=== PATIENT | male | born 1935 | race Caucasian/White ===

== ENCOUNTER → 2016-11-17 | Outpatient (CLI) | payer MEDICARE, BC ==
--- NOTE | 2016-11-17 11:11 | XR ---
EXAMINATION TYPE: XR chest 2V DATE OF EXAM: 11/17/2016 COMPARISON: NONE HISTORY: Dysphagia, R 13.1 TECHNIQUE: Frontal and lateral views of the chest are obtained on 3 images. FINDINGS: There is no focal air space opacity, pleural effusion, or pneumothorax seen. The cardiac silhouette size is within normal limits. Prominent lung volume may be indicative of COPD. There is re tained contrast within the soft tissues of the neck and stomach compatible with patient's barium stud y on this date. Carotid artery calcifications are significant. Bone mineralization is reduced. There is a mild spinal curvature. The osseous structures are intact. IMPRESSION: No acute cardiopulmonary process.
--- NOTE | 2016-11-17 11:21 | FL ---
Barium swallow HISTORY: Dysphagia, food gets stuck in throat 1 minute 45 seconds fluoroscopy time, 119 images document the procedure Patient was given high density barium to drink. Images are obtained. Bilateral carotid artery calcifications are present. Significant facet arthropathy, degenerative disc changes noted incidentally in the neck, anterolisthesis grade 1 C3-4, C4-5, there is multilevel spon dylosis and loss of disc height.. The swallowing mechanism is normal. No obstruction to flow noted within the neck. No evident mass wit hin the neck. No aspiration. Tertiary esophageal contractions are noted. Some transient stenosis noted at the distal esophagus, sm all sliding hiatal hernia is suspected. No evident mass. Gastroesophageal reflux was not noted during the exam. IMPRESSION: Transient distal esophageal narrowing, small sliding hiatal hernia suspected. Tertiary es ophageal contractions. Carotid artery disease. Degenerative disc disease.
== END | disposition home or self-care (01) ==
LOC: RADFLMAIN 10:07
PROVIDERS: ATTEND Internal Medicine
DX: K22.4 Dyskinesia of esophagus (principal); R13.10 Dysphagia, unspecified
CPT/HCPCS: 71020; 74220

== ENCOUNTER 2018-06-08 07:02 | Emergency (ER) | payer MEDICARE ==
[2018-06-08] MEDS ORDERED: SODIUM CHLORIDE 0.9% 500 ML 500 ML IV STA (07:16)
--- NOTE | 2018-06-08 07:32 | ED ---
Abdominal Pain HPI - General Chief Complaint: Abdominal Pain Stated Complaint: hernia pain Time Seen by Provider: 06/08/18 07:11 Source: patient, RN notes reviewed Mode of arrival: ambulatory Limitations: no limitations - History of Present Illness Initial Comments: This an 83-year-old male presents emergency Department with chief complaint of left-sided abdominal pain, left inguinal hernia. Patient states she's had a known hernia but states over the last few days she's had increase in pain and increase in swelling. Patient states that he's had no dysuria no hematuria no diarrhea no constipation. Patient states that his PCP had told him that if he had some pain or increase in size that he needed see a surgeon. Patient denies any increase heavy lifting, twisting or bending. He states that he can push the hernia back in. He states the pain radiated up into his abdomen the left side. He does admit that he has aortic Phillip bypass. Patient denies any lower extremity paresthesias, discoloration. - Related Data Home Medications Medication Instructions Recorded Confirmed Allopurinol [Zyloprim] 100 mg PO DAILY 05/05/15 06/08/18 Atenolol [Tenormin] 50 mg PO DAILY 05/05/15 06/08/18 Furosemide [Lasix] 40 mg PO DAILY 05/05/15 06/08/18 Lisinopril 40 mg PO DAILY 05/05/15 06/08/18 Atorvastatin Calcium [Lipitor] 80 mg PO DAILY 06/08/18 06/08/18 Allergies Allergy/AdvReac Type Severity Reaction Status Date / Time No Known Allergies Allergy Verified 06/08/18 07:27 Review of Systems ROS Statement: Those systems with pertinent positive or pertinent negative responses have been documented in the HPI. ROS Other: All systems not noted in ROS Statement are negative. Past Medical History Past Medical History: Hyperlipidemia, Hypertension, Vascular Disorder Additional Past Medical History / Comment(s): GOUT., STATES PAST HX OF OCCLUDED CIRCULATION TO LEGS. History of Any Multi-Drug Resistant Organisms: None Reported Additional Past Surgical History / Comment(s): AORTO-BIFEMORAL GRAFT Past Anesthesia/Blood Transfusion Reactions: No Reported Reaction Past Psychological History: No Psychological Hx Reported Smoking Status: Current every day smoker Past Alcohol Use History: Daily Past Drug Use History: None Reported - Past Family History Brother(s) Family Medical History: Cancer Sister(s) Family Medical History: Cancer General Exam Limitations: no limitations General appearance: alert, in no apparent distress Respiratory exam: Present: normal lung sounds bilaterally. Absent: respiratory distress, wheezes, rales, rhonchi, stridor Cardiovascular Exam: Present: regular rate, normal rhythm, normal heart sounds. Absent: systolic murmur, diastolic murmur, rubs, gallop, clicks GI/Abdominal exam: Present: soft, normal bowel sounds, hernia (Left inguinal hernia which is reducible). Absent: distended, tenderness, guarding, rebound, rigid Extremities exam: Present: other (Lower extremity pulses equal bilaterally, equal color equal warmth) Back exam: Present: full ROM, tenderness. Absent: CVA tenderness (R), CVA tenderness (L) Skin exam: Present: warm, dry, intact, normal color. Absent: rash Course Vital Signs 06/08/18 07:07 Temperature 97.6 F Pulse Rate 69 Respiratory 20 Rate Blood Pressure 154/65 O2 Sat by Pulse 99 Oximetry Medical Decision Making - Medical Decision Making 83-year-old male presented from for inguinal hernia. Patient has a reducible marginal hernia. Patient did have (CT CT shows evidence of inguinal hernia along with tiny epigastric abdominal wall hernia which is reducible also. Patient has no localized tenderness. Patient will follow-up with on-call surgery and return parameters were discussed. - Lab Data Result diagrams: 06/08/18 07:23 06/08/18 07:23 Lab Results 06/08/18 06/08/18 06/08/18 Range/Units 07:23 07:23 07:40 WBC 7.8 (3.8-10.6) k/uL RBC 4.52 (4.30-5.90) m/uL Hgb 14.2 (13.0-17.5) gm/dL Hct 44.4 (39.0-53.0) % MCV 98.2 (80.0-100.0) fL MCH 31.3 (25.0-35.0) pg MCHC 31.9 (31.0-37.0) g/dL RDW 15.1 (11.5-15.5) % Plt Count 198 (150-450) k/uL Neutrophils % 74 % Lymphocytes % 17 % Monocytes % 5 % Eosinophils % 3 % Basophils % 1 % Neutrophils # 5.8 (1.3-7.7) k/uL Lymphocytes # 1.3 (1.0-4.8) k/uL Monocytes # 0.4 (0-1.0) k/uL Eosinophils # 0.2 (0-0.7) k/uL Basophils # 0.0 (0-0.2) k/uL Sodium 138 (137-145) mmol/L Potassium 4.5 (3.5-5.1) mmol/L Chloride 106 (98-107) mmol/L Carbon Dioxide 23 (22-30) mmol/L Anion Gap 9 mmol/L BUN 25 H (9-20) mg/dL Creatinine 1.14 (0.66-1.25) mg/dL Est GFR (CKD-EPI)AfAm 70 (>60 ml/min/1.73 sqM) Est GFR (CKD-EPI)NonAf 60 (>60 ml/min/1.73 sqM) Glucose 83 (74-99) mg/dL Calcium 9.2 (8.4-10.2) mg/dL Urine Color Yellow Urine Appearance Clear (Clear) Urine pH 5.0 (5.0-8.0) Ur Specific [place] 1.010 (1.001-1.035) Urine Protein Negative (Negative) Urine Glucose (UA) Negative (Negative) Urine Ketones 1+ H (Negative) Urine Blood Negative (Negative) Urine Nitrite Negative (Negative) Urine Bilirubin Negative (Negative) Urine Urobilinogen <2.0 (<2.0) mg/dL Ur Leukocyte Esterase Negative (Negative) Disposition Clinical Impression: Inguinal hernia, Abdominal wall hernia Disposition: HOME SELF-CARE Condition: Stable Instructions (If sedation given, give patient instructions): Inguinal Hernia (ED) Additional Instructions: Please return to the Emergency Department if symptoms worsen or any other concerns. Is patient prescribed a controlled substance at d/c from ED?: No Referrals: Long White MD [Primary Care Provider] - 1-2 days Yang Fried MD [STAFF PHYSICIAN] - 1-2 days Time of Disposition: 09:03
[2018-06-08] MEDS ORDERED: ACETAMINOPHEN TAB 325 MG TAB PO STA (07:43)
[2018-06-08 07:45] LABS: Basophils % (A) 1 %; Eosinophils # (A) 0.2 k/uL (0-0.7); Eosinophils % (A) 3 %; HCT 44.4 % (39.0-53.0); HGB 14.2 gm/dL (13.0-17.5); Lymphocytes # (A) 1.3 k/uL (1.0-4.8); Lymphocytes % (A) 17 %; MCH 31.3 pg (25.0-35.0); MCHC 31.9 g/dL (31.0-37.0); MCV 98.2 fL (80.0-100.0); Monocytes # (A) 0.4 k/uL (0-1.0); Monocytes % (A) 5 %; Neutrophils # (A) 5.8 k/uL (1.3-7.7); Neutrophils % (A) 74 %; Platelet Count 198 k/uL (150-450); RBC 4.52 m/uL (4.30-5.90); RDW 15.1 % (11.5-15.5); WBC 7.8 k/uL (3.8-10.6)
[2018-06-08 07:50] LABS: Appearance,Urine Clear (Clear); Bilirubin,Urine Negative (Negative); Blood,Urine Negative (Negative); Color,Urine Yellow; Glucose,Urine (UA) Negative (Negative); Ketones,Urine 1+ (Negative); Leukocyte Esterase,Urine Negative (Negative); Nitrite,Urine Negative (Negative); Protein,Urine Negative (Negative); Urobilinogen,Urine <2.0 mg/dL (<2.0)
[2018-06-08 08:00] LABS: Calcium 9.2 mg/dL (8.4-10.2); Potassium 4.5 mmol/L (3.5-5.1)
--- NOTE | 2018-06-08 08:52 | CT ---
EXAMINATION TYPE: CT abdomen pelvis w con DATE OF EXAM: 06/08/2018 COMPARISON: NONE HISTORY: 83 year-old male abdominal pain, Hernia pain TECHNIQUE: Contiguous axial scanning of the abdomen and pelvis following administration of 100 ml Iso robby 300 IV contrast. Delayed images through the kidneys and coronal/sagittal reconstructions perform ed. CT DLP: 534.9 mGycm Automated exposure control for dose reduction was used. FINDINGS: Heart normal size without pericardial effusion. Patchy dependent bibasilar densities are present, lef t greater than right. Coronary vessel calcifications. Aortic valvular calcifications. A couple faceted stones within the gallbladder measuring up to 1.5 cm. No abnormal gallbladder disten tion. No focal liver lesion or biliary ductal dilatation. Small diverticulum of the second portion of the d uodenum projecting into the pancreatic head region. There is a 1.8 cm wide omental fat-containing midline epigastric abdominal wall hernia with a very ti ght abdominal wall defect measuring 3 to 4 mm. And omental fat vessel extends into the hernia as well . There may be some mild fat stranding here. Adrenal glands, lobulated bilateral kidneys, spleen, and atrophic pancreas show no gross abnormal mob ility. Some calcifications along the inferior aspect of the pancreatic head suspect represent vascular calci fications. Motion artifacts are present limiting evaluation. No dilated small bowel, free fluid, or free air. Normal appendix. There is some mild edematous stranding throughout the intra-abdominal fat that could reflect some deg ree of fluid overload state. There is a direct left inguinal hernia containing a short loop of nonobstructed proximal sigmoid. The hernia sac measures 5.8 x 4.2 cm. Clustered small bowel loops being low in the pelvis overlying the bladder. No dilated small bowel, fr ee fluid, or free air. No mesenteric or retroperitoneal lymphadenopathy seen. Bladder shows prominent urine distention. Prostate gland measures 4.6 cm wide. No abnormal fluid col lection in the pelvis or pelvic lymphadenopathy. Post surgical changes of aortobifemoral bypass. Bones: Degenerative changes of the hips and right SI joint. Severe degenerative changes L5-S1 disc sp charles and additional levels of degenerative change throughout the remainder of the lumbar spine. IMPRESSION: 1. A TINY OMENTAL FAT AND VESSEL CONTAINING MIDLINE EPIGASTRIC ABDOMINAL WALL HERNIA MEASURES 1.8 CM WIDE WITH A TIGHT, 3 TO 4 MM HERNIA NECK. THERE IS SUGGESTION OF SOME MILD INFLAMMATION HERE. CORRELA TE FOR ANY LOCALIZING PAIN. 2. MODERATE-SIZED DIRECT LEFT INGUINAL HERNIA CONTAINING A SHORT LOOP OF NONOBSTRUCTED PROXIMAL SIGMO ID COLON. 3. CHOLELITHIASIS. 4. MILD EDEMATOUS STRANDING THROUGHOUT THE INTRA-ABDOMINAL FAT. QUERY MILD FLUID OVERLOAD STATE. 5. SOME PATCHY BIBASILAR DENSITIES REPRESENTING ATELECTASIS OR EARLY INFILTRATES. CORRELATE FOR ANY R ESPIRATORY SYMPTOMS.
[2018-06-08] MEDS ORDERED: ACET/COD 300 MG/30 MG STARTER PACK 6 TAB BTL PO STA (09:03)
[2018-06-08 09:08] VITALS: BP 152/63; PULSE 70; RESP 18; TEMP 96.9
== END 2018-06-08 09:07 | disposition home or self-care (01) ==
LOC: EC 07:02
DX: K40.90 Unilateral inguinal hernia, without obstruction or gangrene, not specified as recurrent (principal); K43.9 Ventral hernia without obstruction or gangrene; E78.5 Hyperlipidemia, unspecified; I10 Essential (primary) hypertension; M10.9 Gout, unspecified; F17.200 Nicotine dependence, unspecified, uncomplicated; Z95.828 Presence of other vascular implants and grafts; Z79.899 Other long term (current) drug therapy
CPT/HCPCS: 36415; 74177; 80048; 81003; 85025; 99284

== ENCOUNTER 2018-06-14 09:38 | Day surgery (SDC) | payer MEDICARE ==
[2018-06-09 11:21] VITALS: BMI 20.5
[~2018-06-14 09:38] MED LIST: DEXAMETHASONE SOD PHOSPHATE 10 MG/ML 1 ML VIAL IV ONE; HEPARIN SODIUM,PORCINE 5,000 UNIT/ML 1 ML VIAL SQ ONE; HYDROmorphone 0.5 MG/0.5 ML SYRINGE IVP PRN; MIDAZOLAM 2 MG/2 ML VIAL IV PRN; ONDANSETRON 4 MG/2 ML VIAL IVP ONE; ONDANSETRON 4 MG/2 ML VIAL IVP PRN; SCOPOLAMINE 1.5MG/72HR PATCH TRANSDERM ONE; ceFAZolin IN SWFI 2 GM/20 ML SYRINGE IVP ONE
[2018-06-14] MEDS: LACTATED RINGERS 1,000 ML IV SCH ×2 (12:21→12:22)
[2018-06-14] MEDS ORDERED: LIDOCAINE 1% 20 ML VIAL (10MG/ML) FOR IV START INTRADERMA ONE (12:21)
--- NOTE | 2018-06-14 12:55 | P.GSHP ---
History of Present Illness H&P Date: 06/14/18 Chief Complaint: Left inguinal hernia This 83-year-old male who presents today for laparoscopic robotic system repair of left inguinal hernia. Patient's had developed a tender mass of left groin. 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 LEFT LEG GRAFT History of Any Multi-Drug Resistant Organisms: None Reported Additional Past Surgical History / Comment(s): AORTO-BIFEMORAL GRAFT LEFT SIDE Past Anesthesia/Blood Transfusion Reactions: No Reported Reaction Smoking Status: Current every day smoker - Past Family History Brother(s) Family Medical History: Cancer Sister(s) Family Medical History: Cancer Medications and Allergies Home Medications Medication Instructions Recorded Confirmed Type Allopurinol [Zyloprim] 100 mg PO DAILY 05/05/15 06/14/18 History Atenolol [Tenormin] 50 mg PO DAILY 05/05/15 06/14/18 History Furosemide [Lasix] 40 mg PO DAILY 05/05/15 06/14/18 History Lisinopril 40 mg PO DAILY 05/05/15 06/14/18 History Atorvastatin Calcium [Lipitor] 80 mg PO DAILY 06/08/18 06/14/18 History Allergies Allergy/AdvReac Type Severity Reaction Status Date / Time No Known Allergies Allergy Verified 06/14/18 11:38 Surgical - Exam Vital Signs Temp Pulse Resp BP Pulse Ox 97.8 F 74 18 177/79 96 06/14/18 12:20 06/14/18 12:20 06/14/18 12:20 06/14/18 12:20 06/14/18 12:20 - General well developed, well nourished, no distress - Eyes PERRL - ENT normal pinna - Neck no masses - Respiratory normal expansion - Cardiovascular Rhythm: regular - Abdomen Abdomen: soft, non tender Hernia: inguinal (Reducible left inguinal hernia) Assessment and Plan Assessment: Left inguinal hernia. We'll perform laparoscopic robotic-assisted repair.
[2018-06-14] MEDS ORDERED: PROPOFOL 10 MG/ML 20 ML VIAL IV ONE (13:15)
[2018-06-14] MEDS ORDERED: VECURONIUM 10 MG VIAL IV ONE (13:15)
[2018-06-14] MEDS ORDERED: LIDOCAINE 1% INJ 10MG/ML (20 ML MDV) ONE (13:15)
[2018-06-14] MEDS ORDERED: ROPIVACAINE 5 MG/ML 30 ML VIAL ONE (13:15)
[2018-06-14] MEDS ORDERED: LIDOCAINE 2%-EPI 1:100,000 20 ML VIAL ONE (13:15)
[2018-06-14] MEDS ORDERED: NEOSTIGMINE 1 MG/ML 10 ML VIAL ONE (13:15)
[2018-06-14] MEDS ORDERED: GLYCOPYRROLATE 0.2 MG/ML 2 ML VIAL ONE (13:15)
[2018-06-14] MEDS ORDERED: fentaNYL (PF) 50 MCG/ML 2 ML AMP ONE (13:15)
[2018-06-14] MEDS ORDERED: SUCCINYLCHOLINE CHLORIDE 100 MG/5 ML SYR IV ONE (13:15)
[2018-06-14] MEDS ORDERED: BUPIVACAIN-EPI 0.5%-1:200,000 30 ML VIAL SQ ONE (13:58)
[2018-06-14 14:25] VITALS: TEMP 97.2
[2018-06-14] MEDS ORDERED: HYDROcodone/APAP 7.5-325MG 1 EACH TAB PO ONE (15:22)
--- NOTE | 2018-06-14 15:35 | P.OP ---
Date of Procedure: 06/14/18 Preoperative Diagnosis: Left inguinal hernia Postoperative Diagnosis: Left inguinal hernia Procedure(s) Performed: Laparoscopic robotic-assisted repair of left inguinal hernia Anesthesia: SALEEM Surgeon: Yang Fried Estimated Blood Loss (ml): 5 Pathology: none sent Condition: stable Disposition: PACU Description of Procedure: The patient's placed on the operating table in the supine position. The patient received general anesthesia. The patient's abdomen was prepped and draped in usual sterile fashion. The skin was anesthetized 1% local Xylocaine at the incision sites. Using an 11 blade a skin incision was made at the umbilicus. The fascia was grasped with a Daxa and then the peritoneal cavity was entered with the Veress needle. Position of the Veress needle was confirmed with a positive drop test. After adequate insufflation a 5 mm trocar was placed into the peritoneal cavity. The Laparoscope was placed the peritoneal cavity. And a robotic 8 mm trocar was placed in the right lateral position and then another 8 mm robotic trochars placed in the left lateral position. The original 5 mm trocar was exchanged for a 12 mm trocar. The patient was placed in reverse Trendelenburg and then the patient was docked to the robot. Next the peritoneum over top of the left inguinal hernia was incised and then using blunt and sharp dissection and electrocautery the hernia sac was dissected free from the floor of the inguinal canal. The hernia sac was completely reduced into the peritoneal cavity. And then using the Pro quality assurance test program manager mesh the hernia was repaired. The peritoneum was then sutured with 20V lock suture. The patient was then undocked the robot. The needle was withdrawn from the peritoneal cavity. The umbilical trocar site was closed with 0 Ethibond suture. The skin was closed interrupted 3-0 Monocryl suture. Dermabond dressing was applied. Patient was sent to recovery in stable condition.
[2018-06-14 15:52] VITALS: RESP 16
[2018-06-14 16:38] VITALS: BP 153/74; PULSE 63
--- NOTE | 2018-06-15 12:44 | P.ONQ ---
Anesthesiology Proc Note - PNB - Peripheral Nerve Block Performed Left Transversus Abdominis Single Time Out Performed: Yes Procedure Start Time: 12:30 Procedure Stop Time: 12:33 Indication: Acute Post-Operative Pain, Requested by physician Sedation Type: Sedate with meaningful contact maintained Preparation: Sterile Prep Position: Supine Needle Size: 50mm (2") Needle Gauge: 21 (ropi .5% 20cc plus xylo 2% 10cc) Technique: Ultrasound Blood Aspirated: No Pain Paresthesia on Injection Noted: No Resistance on Injection: Normal Events: Uneventful and Well Tolerated
== END 2018-06-14 18:31 | disposition home or self-care (01) ==
LOC: OR 09:38
PROVIDERS: ATTEND Surgery
DX: K40.90 Unilateral inguinal hernia, without obstruction or gangrene, not specified as recurrent (principal); E78.5 Hyperlipidemia, unspecified; I10 Essential (primary) hypertension; M10.9 Gout, unspecified; F17.200 Nicotine dependence, unspecified, uncomplicated; Z86.79 Personal history of other diseases of the circulatory system; Z80.9 Family history of malignant neoplasm, unspecified; Z95.820 Peripheral vascular angioplasty status with implants and grafts; Z79.899 Other long term (current) drug therapy
CPT/HCPCS: 49650; 64486; C1781; J2250; J1644; J1100; J2710; J2405; J2001; J3010; J2795; J0330; J2704; J0690

== ENCOUNTER → 2019-06-05 | Outpatient (CLI) | payer MEDICARE ==
--- NOTE | 2019-06-05 13:16 | CT ---
EXAMINATION TYPE: CT abdomen pelvis w con DATE OF EXAM: 06/05/2019 COMPARISON: 06/08/2018 2 HISTORY: Change in bowel habits, diarrhea CT DLP: 351.1 mGycm CONTRAST: CT scan of the abdomen and pelvis is performed with Oral Contrast and with IV Contrast, patient injec lucia with 80 mL of Isovue 300. FINDINGS: LUNG BASES-: No visible nodule. No infiltrate. LIVER/GB: Calcified gallstones noted. No space occupying hepatic lesion. Biliary tree is of normal caliber. PANCREAS: No inflammation. No distinct mass. SPLEEN: No splenic enlargement. No lesion seen. ADRENALS: No nodule. No thickening. KIDNEYS/BLADDER: No hydronephrosis. No nephrolithiasis. No distinct renal mass. Urinary bladder g rossly unremarkable. BOWEL: Normal appendix. Normal bowel caliber. No inflammation. GENITAL ORGANS: No gross abnormality. LYMPH NODES: No greater than 1cm abdominal or pelvic lymph nodes are appreciated. AORTA: Dense atheromatous change at the origin of the SMA. Aortic bypass graft distally. OSSEOUS STRUCTURES: No significant abnormality is seen. OTHER: Previously noted interval hernia repairs. IMPRESSION: 1. Dense atheromatous change at the level of the SMA without evidence for wall thickening of the edwin l. 2. Cholelithiasis. 3. Surgical intervention of previously noted hernias.
== END | disposition home or self-care (01) ==
LOC: RADCTMAIN 10:52
PROVIDERS: ATTEND Family Medicine
DX: K55.1 Chronic vascular disorders of intestine (principal); K80.20 Calculus of gallbladder without cholecystitis without obstruction; K46.9 Unspecified abdominal hernia without obstruction or gangrene; R19.7 Diarrhea, unspecified; R19.4 Change in bowel habit
CPT/HCPCS: 82565; 84520; 74177; 36415; Q9967 ×2

== ENCOUNTER → 2020-04-11 | Outpatient (CLI) | payer MEDICARE ==
[2020-04-11 23:50] LABS: Gliadin AB IgA, Deaminated NEGATIVE (NEGATIVE); Gliadin AB IgA, Unit 0.7 U/mL
[2020-04-11 23:51] LABS: Gliadin AB IgG, Deaminated NEGATIVE (NEGATIVE)
[2020-04-12 00:58] LABS: Carcinoembryonic Antigen 1.4 ng/mL (0.0-4.9)
[2020-04-12 01:03] LABS: African American GFR (CKD) 80.3 (60.0-200.0); Non-African American GFR(CKD) 69.3 (60.0-200.0)
== END | disposition home or self-care (01) ==
LOC: LABWHC1 15:17
PROVIDERS: ATTEND Nurse Practitioner
DX: R63.4 Abnormal weight loss (principal)
CPT/HCPCS: 36415; 82378; 82565; 83516; 84520

== ENCOUNTER → 2020-04-17 | Outpatient (CLI) | payer MEDICARE ==
--- NOTE | 2020-04-18 00:24 | CT ---
EXAMINATION TYPE: CT ChestAbdPelvis w con DATE OF EXAM: 04/17/2020 COMPARISON: CT abdomen pelvis 06/05/2019 HISTORY: abnormal weight loss CT DLP: 900 mGycm Automated exposure control for dose reduction was used. CONTRAST: Performed with IV Contrast, patient injected with 100 mL of Isovue 300. Images obtained from the thoracic inlet to the floor the pelvis with IV contrast. There is minimal pulmonary emphysema at the lung apices. The lungs are clear of consolidation. There is no evidence of a pulmonary mass. There is minimal subsegmental atelectasis at the posterior lung b ases. There is no pleural effusion. There is no pericardial effusion. There is no mediastinal adenopathy. Thoracic aorta shows mild atheromatous changes. There is no aneur ysm or dissection. There are no hilar masses. There are no filling defects in the pulmonary arteries. There are large calcified gallstones. Liver shows no focal defect. There is mild ectasia of the left and right hepatic duct. The common bile duct is not significantly dilated. Stomach is intact. There i s no pancreatic mass. Spleen is intact. There is no adrenal mass. Kidneys show satisfactory contrast opacification. There is no hydronephrosi s. Ureters are not dilated. There is no retroperitoneal adenopathy. Abdominal aorta is atheromatous. There is aorto iliac bypass graft. There is moderate calcification in the iliac arteries. There is si gnificant narrowing of the proximal celiac artery and probably more than 75% stenosis. There is occlu vitaly of the distal abdominal aorta. The bladder distends smoothly. There is no inguinal hernia. There is no free fluid in the pelvis. There is no sign of pelvic mass. There is no inguinal hernia. There is normal contrast opacification of the bowel. Appendix is posteri or and appears normal. There is no evidence of a bowel obstruction. There is no mesenteric edema. The re is however some mild wall thickening of the transverse colon. There is no ascites or free air. The re is some mild retroperitoneal perinephric fat stranding which is increased compared to old exam. The thoracic and lumbar vertebra appear intact. Spleen is intact. Bony pelvis is intact. The hip join ts are intact. I see no bony destructive process. There are some spondylotic changes in the lumbar sp ine at L5-S1 and L2-3. There is no compression fracture. IMPRESSION: Mild wall thickening of the wall of the transverse colon and proximal descending colon that raises th e possibility of some mild ischemic colitis. This is a change compared to old exam. There is retroper itoneal fat stranding around the kidneys that is increased compared to old exam. There is mild ectasia of the left and right hepatic duct but no dilation of the intrahepatic bile haydee ts. No obstructing lesion seen. This probably relates to some chronic gallbladder dysfunction.. Kalli lithiasis. No evidence of pulmonary embolism. Atherosclerotic vascular disease. There is normal appearing patenc y of the aortofemoral femoral bypass graft. 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 Moderately severe plaque formation at the origin of the superior mesenteric artery.
== END | disposition home or self-care (01) ==
LOC: RADCTMAIN 15:49
PROVIDERS: ATTEND Internal Medicine Gastroenterology
DX: K63.89 Other specified diseases of intestine (principal); R93.429 Abnormal radiologic findings on diagnostic imaging of unspecified kidney; K76.89 Other specified diseases of liver; K80.20 Calculus of gallbladder without cholecystitis without obstruction; I25.10 Atherosclerotic heart disease of native coronary artery without angina pectoris; I77.4 Celiac artery compression syndrome; K55.1 Chronic vascular disorders of intestine; Z95.828 Presence of other vascular implants and grafts
CPT/HCPCS: 82565; 84520; 71260; 74177; Q9967

== ENCOUNTER 2020-04-22 08:49 | Day surgery (SDC) | payer MEDICARE ==
[2020-04-18 11:44] VITALS: BMI 19.1
[~2020-04-22 08:49] MED LIST changes: -DEXAMETHASONE SOD PHOSPHATE 10 MG/ML 1 ML VIAL IV ONE; -HEPARIN SODIUM,PORCINE 5,000 UNIT/ML 1 ML VIAL SQ ONE; -HYDROmorphone 0.5 MG/0.5 ML SYRINGE IVP PRN; +LACTATED RINGERS 1,000 ML IV SCH; -MIDAZOLAM 2 MG/2 ML VIAL IV PRN; -ONDANSETRON 4 MG/2 ML VIAL IVP ONE; -ONDANSETRON 4 MG/2 ML VIAL IVP PRN; -SCOPOLAMINE 1.5MG/72HR PATCH TRANSDERM ONE; -ceFAZolin IN SWFI 2 GM/20 ML SYRINGE IVP ONE
[2020-04-22] MEDS ORDERED: LIDOCAINE 1% (10MG/ML) FOR IV START INTRADERMA ONE (09:24)
[2020-04-22 09:30] VITALS: TEMP 97
[2020-04-22] MEDS ORDERED: LIDOCAINE 1% INJ 10MG/ML (20 ML MDV) ONE (10:10)
[2020-04-22] MEDS ORDERED: PROPOFOL 10 MG/ML 20 ML VIAL IV ONE (10:10)
[2020-04-22 11:09] VITALS: PULSE 54
--- NOTE | 2020-04-22 11:12 | P.PCN ---
Date of Procedure: 04/22/20 Description of Procedure: Brief history: Patient is a pleasant 85-year-old male presenting for outpatient EGD and colonoscopy for evaluation of diarrhea, noninfective gastroenteritis colitis and dysphagia. Patient has been having symptoms of diarrhea and nonbloody stools occurring over the past year with over 10 bowel movements daily including nocturnal bowel movements. He also reports intermittent food dysphagia with the sensation of food getting stuck in his esophagus. Procedure performed: Esophagogastroduodenoscopy with biopsy Colonoscopy with polypectomy and biopsy Estimated blood loss: Minimal. Preoperative diagnosis: Esophageal dysphagia, noninfective gastroenteritis and colitis, unintentional weight loss, diarrhea, no prior colonoscopy Anesthesia: [facility] [place] Procedure: After informed consent was obtained from the patient was brought into the endoscopy unit and IV sedation was administered by anesthesia under continuous monitoring. Initially upper endoscopy was done. The Olympus GF 190 video endoscope was inserted into the mouth and esophagus intubated without any difficulty and was gradually advanced into the stomach and duodenum and carefully examined. The bulb and second part of the duodenum appeared normal, With biopsies taken to rule out celiac sprue. The scope was then withdrawn into the stomach adequately insufflated with air and upon careful examination the antrum and body, cardia and fundus appeared normal, Except for some mild erythema in the antrum and body suggestive of mild gastritis biopsies taken. The scope was then withdrawn into the esophagus. The GE junction was located at 35 cm to the incisors and biopsied. It appeared regular with no erythema erosions or ulcerations. Rest of the esophagus appeared normal. Patient tolerated the procedure well. At this time the patient continued to remain sedation. Initial digital rectal examination was normal. Olympus CF 190 video colonoscope was then inserted into the rectum and gradually advanced to the cecum without any difficulty. Careful examination was performed as the scope was gradually being withdrawn. The prep was excellent. The cecum, ascending colon, transverse colon, descending colon, sigmoid colon and rectum appeared normal. Retroflexion was performed in the rectum and no lesions were noted. Multiple small and large mouth diverticula in the sigmoid colon. Sessile 12 mm hepatic flexure polyp removed with hot snare polypectomy. Random biopsies taken of the terminal ileum, right and left colon in the setting of altered bowel function diarrhea. Patient tolerated the procedure well. Impression: 1. Mild gastritis. Biopsies taken of the antrum and body, GE junction and duodenum. 2. Large sessile hepatic flexure polyp removed with snare polypectomy. Random biopsies taken of the terminal ileum, right colon and left colon in the setting of diarrhea. Mild sigmoid diverticulosis. Recommendations: Findings of this examination were discussed with the patient as well as This family. Okay to resume diet. Okay to resume medications. Await pathology from biopsies and polypectomy. Follow-up in the GI clinic in the next was 2 weeks for results of biopsies and further management.
[2020-04-22 11:30] VITALS: BP 194/53; RESP 18
== END 2020-04-22 11:54 | disposition home or self-care (01) ==
LOC: ORWHC2ENDO 08:49
PROVIDERS: ATTEND Internal Medicine
DX: K50.00 Crohn's disease of small intestine without complications (principal); K52.9 Noninfective gastroenteritis and colitis, unspecified; D12.3 Benign neoplasm of transverse colon; K29.50 Unspecified chronic gastritis without bleeding; B96.81 Helicobacter pylori [H. pylori] as the cause of diseases classified elsewhere; D72.820 Lymphocytosis (symptomatic); K21.9 Gastro-esophageal reflux disease without esophagitis; I10 Essential (primary) hypertension; J44.9 Chronic obstructive pulmonary disease, unspecified; F17.210 Nicotine dependence, cigarettes, uncomplicated; M19.90 Unspecified osteoarthritis, unspecified site; K57.30 Diverticulosis of large intestine without perforation or abscess without bleeding; K29.80 Duodenitis without bleeding; Z79.899 Other long term (current) drug therapy; Z98.49 Cataract extraction status, unspecified eye; Z98.890 Other specified postprocedural states
CPT/HCPCS: 88305; 88342; 45380; 45385; 43239; J2001; J2704

== ENCOUNTER → 2020-08-22 | Outpatient (CLI) | payer MEDICARE ==
--- NOTE | 2020-08-22 09:00 | US ---
EXAMINATION TYPE: US liver DATE OF EXAM: 08/22/2020 COMPARISON: CT 04/17/2020 CLINICAL HISTORY: 85-year-old male R94.5 Abnormal results of liver function studies. TECHNIQUE: Multiple sonographic images of the right upper quadrant are obtained. FINDINGS: EXAM MEASUREMENTS: Liver Length: 8.0 cm Gallbladder Wall: 0.3 cm CBD: 1.0 cm Right Kidney: 8.3 x 4.7 x 5.6 cm Pancreas: Obscured by bowel gas Liver: wnl Gallbladder: At least 2 calcified stones with shadowing. No abnormal distention. Wall thickness is b orderline at 3 mm. No surrounding fluid seen. Evidence for sonographic Ugalde's sign: No CBD: measures 1.0 cm Right Kidney: No hydronephrosis or masses seen IMPRESSION: 1. Bile duct dilated at 1 cm. This is more than expected for patient's age. Choledocholithiasis not e xcluded especially given the appearance on 04/17/2020 CT. Correlate with alkaline phosphatase and bilir ubin levels. ERCP or MRCP if indicated. 2. At least 2 gallstones measuring up to 1.6 cm.
== END | disposition home or self-care (01) ==
LOC: RADUSWWP 07:27
PROVIDERS: ATTEND Family Medicine
DX: K83.8 Other specified diseases of biliary tract (principal); K80.20 Calculus of gallbladder without cholecystitis without obstruction
CPT/HCPCS: 76705

== ENCOUNTER → 2020-08-27 | Outpatient (CLI) | payer MEDICARE ==
[2020-08-27 23:47] LABS: Albumin 4.3 g/dL (3.80-4.90); Albumin/Globulin Ratio 1.95 (1.60-3.17); Bilirubin, Conjugated 0.2 mg/dL (0.20-0.40); Bilirubin,Unconjugated 0.4 mg/dL; Globulin 2.2 g/dL (1.6-3.3); Total Bilirubin 0.6 mg/dL (0.2-1.2); Total Protein 6.5 g/dL (6.2-8.2)
== END | disposition home or self-care (01) ==
LOC: LABWHC1 10:29
PROVIDERS: ATTEND Nurse Practitioner
DX: R74.01 Elevation of levels of liver transaminase levels (principal)
CPT/HCPCS: 36415; 80076

== ENCOUNTER → 2020-09-08 | Outpatient (CLI) | payer MEDICARE ==
--- NOTE | 2020-09-09 00:28 | MR ---
EXAMINATION TYPE: MR MRCP DATE OF EXAM: 09/08/2020 COMPARISON: None HISTORY: Elevated levels of liver transaminase Multiplanar multiecho imaging of the abdomen was performed without contrast. There are MRCP images. The liver shows no focal defect. Gallbladder appears intact. There are multiple irregular filling def ects in the dependent gallbladder related to multiple large gallstones. There is no evidence of pancr eatic mass. Spleen is intact. The stomach is intact. There appears to be low signal filling defect in the common bile duct measuring up to 9 mm. The distal common bile duct shows no definite filling def ect. The kidneys have normal size. There is no sign of adrenal mass. There is mild right-sided hydronephro sis. There is no sign of retroperitoneal adenopathy. There is no sign of ascites. IMPRESSION: Cholelithiasis. There is probably at least 2 common duct stones. These are best seen on the T2 axial images series 701 and image 17 and 14. There are probably additional stones in the more proximal comm on bile duct. On the MRCP series 1005 image 7 there appears to be a conglomeration of stones that selena sures overall 23 x 7 mm.
== END | disposition home or self-care (01) ==
LOC: RADMRIMAIN 06:36
PROVIDERS: ATTEND Nurse Practitioner
DX: K80.20 Calculus of gallbladder without cholecystitis without obstruction (principal)
CPT/HCPCS: 74181

== ENCOUNTER 2020-09-24 19:58 | Inpatient (IN) | payer MEDICARE ==
[2020-09-24] MEDS ORDERED: SODIUM CHLORIDE 0.9% 1,000 ML IV STA (20:11)
--- NOTE | 2020-09-24 20:19 | ED ---
General Adult HPI - General Chief complaint: Abdominal Pain Stated complaint: gallstones Time Seen by Provider: 09/24/20 20:05 Source: patient Mode of arrival: wheelchair Limitations: no limitations - History of Present Illness Initial comments: 85 year-old male patient presents to the emergency department for evaluation of dizziness and weakness. States that he had upper abdominal pain and vomiting throughout the night last night. States that today whenever he stands up he becomes lightheaded and dizzy. State he feels like he is going to fall. States he feels like he was feverish, but did not take his temperature. States he has been having diarrhea. Denies any hematochezia, melena, or hematemesis. Does have known gallstones, does have EGD scheduled with Dr. Causey at the end of September. Patient denies any recent rash, cough, shortness of breath, chest pain, back pain, numbness, tingling, dizziness, weakness, hematuria, dysuria, urinary urgency, urinary frequency, headache, visual changes, or any other complaints. - Related Data Home Medications Medication Instructions Recorded Confirmed Furosemide [Lasix] 40 mg PO DAILY 05/05/15 09/24/20 allopurinoL [Zyloprim] 100 mg PO DAILY 05/05/15 09/24/20 atenoloL [Tenormin] 50 mg PO DAILY 05/05/15 09/24/20 lisinopriL 40 mg PO DAILY 05/05/15 09/24/20 Atorvastatin Calcium [Lipitor] 80 mg PO DAILY 06/08/18 09/24/20 Allergies Allergy/AdvReac Type Severity Reaction Status Date / Time No Known Allergies Allergy Verified 09/24/20 23:11 Review of Systems ROS Statement: Those systems with pertinent positive or pertinent negative responses have been documented in the HPI. ROS Other: All systems not noted in ROS Statement are negative. 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 LEFT LEG GRAFT History of Any Multi-Drug Resistant Organisms: None Reported Past Surgical History: Hernia Repair Additional Past Surgical History / Comment(s): AORTO-BIFEMORAL GRAFT LEFT SIDE Past Anesthesia/Blood Transfusion Reactions: No Reported Reaction Past Psychological History: No Psychological Hx Reported Past Alcohol Use History: Daily - Past Family History Brother(s) Family Medical History: Cancer Sister(s) Family Medical History: Cancer General Exam Limitations: no limitations General appearance: alert, in no apparent distress, other (Physical well- developed, well-nourished elderly male patient in no acute distress. Vital signs upon presentation temperature 98.2F, pulse 86, respirations 18, blood pressure 96/55, pulse ox 98% on room air.) Eye exam: Present: normal appearance, PERRL, EOMI. Absent: scleral icterus, conjunctival injection, periorbital swelling ENT exam: Present: normal exam, normal oropharynx, mucous membranes moist Respiratory exam: Present: normal lung sounds bilaterally. Absent: respiratory distress, wheezes, rales, rhonchi, stridor Cardiovascular Exam: Present: regular rate, normal rhythm, normal heart sounds. Absent: systolic murmur, diastolic murmur, rubs, gallop, clicks GI/Abdominal exam: Present: soft, normal bowel sounds. Absent: distended, tenderness, guarding, rebound, rigid Neurological exam: Present: alert, oriented X3, CN II-XII intact Psychiatric exam: Present: normal affect, normal mood Skin exam: Present: warm, dry, intact, normal color. Absent: rash Course Vital Signs 09/24/20 09/24/20 09/25/20 19:59 20:56 00:08 Temperature 98.0 F Pulse Rate 86 78 Pulse Rate [ 78 Left Sitting Pulse Oximetery ] Pulse Rate [ 88 Left Standing Pulse Oximetery ] Pulse Rate [ 76 Left Supine Pulse Oximetery ] Respiratory 18 20 16 Rate Blood Pressure 96/55 118/58 Blood Pressure 106/48 [Left Arm Supine] Blood Pressure 108/48 [Right Arm Sitting] Blood Pressure 87/42 [Right Arm Standing] O2 Sat by Pulse 98 97 95 Oximetry EKG Findings - EKG Comments: EKG Findings:: EKG obtained at 2041 shows normal sinus rhythm with a ventricular rate is 76, IA interval 152, QRS duration 88, QT 374, QTC 420. No evidence of ST elevation or depression. Medical Decision Making - Medical Decision Making 85-year-old male patient presenting with abdominal pain and vomiting history of gallstones. Physical examination did reveal a soft abdomen, some right upper quadrant tenderness. Labs reviewed and did reveal white blood cell count is 17.9. BUN is 35, creatinine 1.68 which is new for the patient. Lactic acid 3.8. Magnesium 1.5. Bili 2.9, AST 602, a LT 410, alk phos 200. Ultrasound was obtained and did show gallstones, possibly dilated common bile duct. Did discuss findings and results with the patient. He started on antibiotics. He'll be admitted for GI and surgical consult. He is agreeable to this plan. Case discussed with my attending Dr. Block. - Lab Data Result diagrams: 09/24/20 20:21 09/24/20 20:21 Lab Results 09/24/20 09/24/20 09/24/20 Range/Units 20:21 20:21 20:21 WBC 17.9 H (3.8-10.6) k/uL RBC 4.46 (4.30-5.90) m/uL Hgb 13.2 (13.0-17.5) gm/dL Hct 41.0 (39.0-53.0) % MCV 92.0 (80.0-100.0) fL MCH 29.7 (25.0-35.0) pg MCHC 32.3 (31.0-37.0) g/dL RDW 16.8 H (11.5-15.5) % Plt Count 129 L (150-450) k/uL MPV 9.5 Neutrophils % (Manual) 58 % Band Neuts % (Manual) 38 % Lymphocytes % (Manual) 4 % Neutrophils # (Manual) 17.10 H (1.3-7.7) k/uL Lymphocytes # (Manual) 0.72 L (1.0-4.8) k/uL Nucleated RBCs 0 (0-0) /100 WBC Differential Comment Manual Slide Review Performed Toxic Granulation Present Toxic Vacuolation Present Anisocytosis Slight Anisocytosis (manual) Present Ovalocytes Present Sodium 139 (137-145) mmol/L Potassium 4.2 (3.5-5.1) mmol/L Chloride 109 H (98-107) mmol/L Carbon Dioxide 19 L (22-30) mmol/L Anion Gap 11 mmol/L BUN 35 H (9-20) mg/dL Creatinine 1.68 H (0.66-1.25) mg/dL Est GFR (CKD-EPI)AfAm 43 (>60 ml/min/1.73 sqM) Est GFR (CKD-EPI)NonAf 37 (>60 ml/min/1.73 sqM) Glucose 90 (74-99) mg/dL POC Glucose (mg/dL) (75-99) mg/dL POC Glu Digital Associate ID Lactic Ac Sepsis Rflx Plasma Lactic Acid Nima 3.8 H* (0.7-2.0) mmol/L Calcium 9.4 (8.4-10.2) mg/dL Magnesium 1.5 L (1.6-2.3) mg/dL Total Bilirubin 2.9 H (0.2-1.3) mg/dL AST 602 H (17-59) U/L ALT 410 H (4-49) U/L Alkaline Phosphatase 200 H (38-126) U/L Total Protein 5.9 L (6.3-8.2) g/dL Albumin 3.4 L (3.5-5.0) g/dL Lipase 178 (23-300) U/L 09/24/20 09/24/20 09/24/20 Range/Units 20:42 20:58 23:30 WBC (3.8-10.6) k/uL RBC (4.30-5.90) m/uL Hgb (13.0-17.5) gm/dL Hct (39.0-53.0) % MCV (80.0-100.0) fL MCH (25.0-35.0) pg MCHC (31.0-37.0) g/dL RDW (11.5-15.5) % Plt Count (150-450) k/uL MPV Neutrophils % (Manual) % Band Neuts % (Manual) % Lymphocytes % (Manual) % Neutrophils # (Manual) (1.3-7.7) k/uL Lymphocytes # (Manual) (1.0-4.8) k/uL Nucleated RBCs (0-0) /100 WBC Differential Comment Manual Slide Review Toxic Granulation Toxic Vacuolation Anisocytosis Anisocytosis (manual) Ovalocytes Sodium (137-145) mmol/L Potassium (3.5-5.1) mmol/L Chloride (98-107) mmol/L Carbon Dioxide (22-30) mmol/L Anion Gap mmol/L BUN (9-20) mg/dL Creatinine (0.66-1.25) mg/dL Est GFR (CKD-EPI)AfAm (>60 ml/min/1.73 sqM) Est GFR (CKD-EPI)NonAf (>60 ml/min/1.73 sqM) Glucose (74-99) mg/dL POC Glucose (mg/dL) 87 (75-99) mg/dL POC Glu Digital Associate ID David Schreiber Lactic Ac Sepsis Rflx Y Plasma Lactic Acid Nima 1.8 (0.7-2.0) mmol/L Calcium (8.4-10.2) mg/dL Magnesium (1.6-2.3) mg/dL Total Bilirubin (0.2-1.3) mg/dL AST (17-59) U/L ALT (4-49) U/L Alkaline Phosphatase (38-126) U/L Total Protein (6.3-8.2) g/dL Albumin (3.5-5.0) g/dL Lipase (23-300) U/L - Radiology Data Radiology results: report reviewed, image reviewed Ultrasound shows numerous gallstones. CBC appears dilated. No focal liver defect. No ascites. Disposition Clinical Impression: Ascending cholangitis, Sepsis, Hypomagnesemia, Acute kidney injury Disposition: ADMITTED IP TO THIS [facility] Condition: Serious Decision to Admit Reason: Admit from EC Decision Date: 09/24/20 Decision Time: 23:44
[2020-09-24 20:36] LABS: Anisocytosis Slight; HGB 13.2 gm/dL (13.0-17.5); MCH 29.7 pg (25.0-35.0); MCHC 32.3 g/dL (31.0-37.0); Mean Platelet Volume 9.5; Platelet Count 129 k/uL (150-450); RBC 4.46 m/uL (4.30-5.90); RDW 16.8 % (11.5-15.5); WBC 17.9 k/uL (3.8-10.6)
[2020-09-24 20:42] LABS: Albumin 3.4 g/dL (3.5-5.0); Calcium 9.4 mg/dL (8.4-10.2); Magnesium 1.5 mg/dL (1.6-2.3); Potassium 4.2 mmol/L (3.5-5.1); Total Bilirubin 2.9 mg/dL (0.2-1.3); Total Protein 5.9 g/dL (6.3-8.2)
[2020-09-24 20:56] LABS: Band Neutrophils % 38 %; Lymphocytes # (M) 0.72 k/uL (1.0-4.8); Neutrophils % (M) 58 %; Nucleated Red Blood Cells 0 /100 WBC (0-0); Total Cells Counted 200
[2020-09-24 20:57] LABS: Anisocytosis (M) Present; Ovalocytes Present
[2020-09-24 20:58] LABS: Toxic Granulation Present; Toxic Vacuolation Present
[2020-09-24 21:00] LABS: Glucose,Whole Blood 87 mg/dL (75-99)
[2020-09-24] MEDS ORDERED: PIPERACILLIN-TAZOBACTAM 3.375 GM in SODIUM CHLORIDE 0.9% 100 ML IVPB STA (21:25)
[2020-09-24] MEDS: MAGNESIUM SULFATE-D5W PMX 1 GM in DEXTROSE/WATER 1 100ML.BAG IVPB SCH ×2 (22:18→23:48)
[2020-09-24] MEDS: SODIUM CHLORIDE 0.9% 1,000 ML IV SCH (22:21)
--- NOTE | 2020-09-24 22:35 | US ---
EXAMINATION TYPE: US abdomen limited DATE OF EXAM: 09/24/2020 COMPARISON: CT, US CLINICAL HISTORY: Abd pain; Hx gallstones. Abdominal pain, hx gallstones. EXAM MEASUREMENTS: Liver Length: 12.5 cm Gallbladder Wall: 0.27 cm CBD: 0.85 cm Right Kidney: 8.3 x 5.0 x 4.8 cm Limited due to gas. Pancreas: Not seen. Liver: Left lobe not seen. Appears coarse, increased echogenicity. Gallbladder: Positioned anteriorly. Multiple hyperechoic foci with posterior shadowing seen within t he gallbladder. Evidence for sonographic Ugalde's sign: No CBD: Appears dilated. Right Kidney: Appears to have a lobulated contour. IMPRESSION: Numerous gallstones. No dilated ducts. No focal liver defect. No ascites.
[2020-09-24] MEDS ORDERED: ONDANSETRON 4 MG/2 ML VIAL IVP PRN (23:41)
[2020-09-24] MEDS ORDERED: NALOXONE 0.4 MG/ML 1 ML VIAL IV PRN (23:41)
[2020-09-25] MEDS: MAGNESIUM SULFATE-D5W PMX 1 GM in DEXTROSE/WATER 1 100ML.BAG IVPB SCH (00:58)
[2020-09-25 01:28] LABS: Amorphous Sediment,Urine Rare /hpf; Appearance,Urine Cloudy (Clear); Bacteria,Urine Rare /hpf; Bilirubin,Urine Negative (Negative); Blood,Urine Trace (Negative); Color,Urine Yellow; Glucose,Urine (UA) Negative (Negative); Hyaline Casts,Urine 3 /lpf (0-2); Ketones,Urine Negative (Negative); Leukocyte Esterase,Urine Negative (Negative); Nitrite,Urine Negative (Negative); Protein,Urine 1+ (Negative); RBC,Urine 2 /hpf (0-5); Squamous Epithelial Cell,Urine <1 /hpf (0-4); Urobilinogen,Urine <2.0 mg/dL (<2.0); WBC,Urine 61 /hpf (0-5)
[2020-09-25] MEDS: PIPERACILLIN-TAZOBACTAM 3.375 GM in SODIUM CHLORIDE 0.9% 100 ML IVPB SCH ×3 (04:01→20:04)
--- NOTE | 2020-09-25 04:18 | P.HPIM ---
History of Present Illness H&P Date: 09/25/20 Chief Complaint: Abdominal pain 85-year-old male with history of hypertension and peripheral arterial disease He's been recently found to have elevated liver enzymes and has been doing some outpatient workup, he had liver ultrasound and MRCP which suggested choledocholithiasis. Today he comes in due to worsening right upper quadrant abdominal pain of 1 day duration associated with nausea vomiting and diarrhea no GI bleeding reported patient is colicky in nature at times severe 8 out of 10 in severity is also reporting some dark urine. Otherwise patient denies fevers or chills however he does have decreased appetite. Currently is laying comfortable in bed denies any abdominal pain In the ED workup showed obstructive jaundice picture with acute transaminitis suspicious for possible underlying acute cholecystitis with ascending cholangitis Review of Systems Pertinent positives as noted in HPI. All other systems were reviewed and are negative Past Medical History Past Medical History: Hyperlipidemia, Hypertension, Vascular Disorder Additional Past Medical History / Comment(s): GOUT, STATES PAST HX OF OCCLUDED CIRCULATION TO LEGS. LEFT LEG GRAFT History of Any Multi-Drug Resistant Organisms: None Reported Past Surgical History: Hernia Repair Additional Past Surgical History / Comment(s): AORTO-BIFEMORAL GRAFT LEFT SIDE Past Anesthesia/Blood Transfusion Reactions: No Reported Reaction Past Psychological History: No Psychological Hx Reported Past Alcohol Use History: Daily - Past Family History Brother(s) Family Medical History: Cancer Sister(s) Family Medical History: Cancer Medications and Allergies Home Medications Medication Instructions Recorded Confirmed Type Furosemide [Lasix] 40 mg PO DAILY 05/05/15 09/24/20 History allopurinoL [Zyloprim] 100 mg PO DAILY 05/05/15 09/24/20 History atenoloL [Tenormin] 50 mg PO DAILY 05/05/15 09/24/20 History lisinopriL 40 mg PO DAILY 05/05/15 09/24/20 History Atorvastatin Calcium [Lipitor] 80 mg PO DAILY 06/08/18 09/24/20 History Allergies Allergy/AdvReac Type Severity Reaction Status Date / Time No Known Allergies Allergy Verified 09/24/20 23:11 Physical Exam Vitals: Vital Signs Temp Pulse Pulse Pulse Pulse Resp BP 09/25/20 00:08 78 16 118/58 09/24/20 20:56 78 88 76 20 09/24/20 19:59 98.0 F 86 18 96/55 BP BP BP Pulse Ox 09/25/20 00:08 95 09/24/20 20:56 106/48 108/48 87/42 97 09/24/20 19:59 98 Intake and Output 09/24/20 09/24/20 09/25/20 14:59 22:59 06:59 Other: Weight 48.534 kg Constitutional: No acute distress, conversant, pleasant Eyes: Anicteric sclerae, moist conjunctiva, Pupils equal round reactive to light ENMT: NC/AT Oropharynx clear, no erythema, or exudates Neck: Supple, FROM, no masses, or JVD No carotid bruits No thyromegaly Lungs: Clear to auscultation Clear to percussion Normal respiratory effort, no accessory muscle use Cardiovascular: Heart regular in rate and rhythm, No murmurs, gallops, or rubs No peripheral edema Abdominal: Soft Nontender, no guarding, rebound or rigidity, Ugalde sign negative Abdomen moving with respiration Normoactive bowel sounds No hepatomegaly, No splenomegaly No palpable mass No abdominal wall hernia noted Skin: Normal temperature, tone, texture, turgor No induration No subcutaneous nodules No rash, lesions No ulcers Extremities: No digital cyanosis No clubbing Pedal pulses intact and symmetrical Radial pulses intact and symmetrical No calf tenderness Psychiatric: Alert and oriented to person, place and time Appropriate affect fair judgement Neuro Muscles Strength 5/5 in all 4 extremities Sensation to light touch grossly present throughout Cranial nerves II-XII grossly intact, very hard of hearing No focal sensory deficits Lymphatics: no palpable cervical or supraclavicular , or inguinal lymph nodes Results CBC & Chem 7: 09/24/20 20:21 09/24/20 20:21 Labs: Abnormal Lab Results - Last 24 Hours (Table) 09/24/20 09/24/20 09/24/20 Range/Units 20:21 20:21 20:21 WBC 17.9 H (3.8-10.6) k/uL RDW 16.8 H (11.5-15.5) % Plt Count 129 L (150-450) k/uL Neutrophils # (Manual) 17.10 H (1.3-7.7) k/uL Lymphocytes # (Manual) 0.72 L (1.0-4.8) k/uL Chloride 109 H (98-107) mmol/L Carbon Dioxide 19 L (22-30) mmol/L BUN 35 H (9-20) mg/dL Creatinine 1.68 H (0.66-1.25) mg/dL Plasma Lactic Acid Nima 3.8 H* (0.7-2.0) mmol/L Magnesium 1.5 L (1.6-2.3) mg/dL Total Bilirubin 2.9 H (0.2-1.3) mg/dL AST 602 H (17-59) U/L ALT 410 H (4-49) U/L Alkaline Phosphatase 200 H (38-126) U/L Total Protein 5.9 L (6.3-8.2) g/dL Albumin 3.4 L (3.5-5.0) g/dL Assessment and Plan Assessment: Acute ascending cholangitis Outpatient MRCP showed choledocholithiasis with possible obstructive jaundice pattern Follow-up cultures Empiric antibiotics with Zosyn Surgery consultation Pain control Monitor vital signs Nothing by mouth IV fluid hydration Supportive care Acute kidney injury Hold for toxic meds Hold TABITHA inhibitor IV fluid hydration with normal saline Monitor renal function Monitor urine output Chronic conditions Hypertension resume home medications atenolol hold TABITHA inhibitor due to HERMELINDO Patient requested to be no code DVT prophylaxis with heparin subcu 3 times a day Anticipated length of stay more than 2 midnights Anticipated discharge home A total of 75 minutes was spent on the care of this complex patient more than 50% of the time was spent in counseling and care coordination.
[2020-09-25 05:48] LABS: Albumin 2.5 g/dL (3.5-5.0); Potassium 4.4 mmol/L (3.5-5.1); Total Bilirubin 2.4 mg/dL (0.2-1.3); Total Protein 4.7 g/dL (6.3-8.2)
[2020-09-25 05:58] LABS: Anisocytosis Slight; Basophils % (A) 0 %; Eosinophils % (A) 0 %; HCT 32.8 % (39.0-53.0); HGB 10.8 gm/dL (13.0-17.5); Lymphocytes # (A) 0.9 k/uL (1.0-4.8); Lymphocytes % (A) 6 %; MCH 30.4 pg (25.0-35.0); MCHC 32.8 g/dL (31.0-37.0); MCV 92.8 fL (80.0-100.0); Mean Platelet Volume 9.2; Monocytes # (A) 0.4 k/uL (0-1.0); Monocytes % (A) 2 %; Neutrophils # (A) 15.7 k/uL (1.3-7.7); Neutrophils % (A) 92 %; Platelet Count 104 k/uL (150-450); RBC 3.54 m/uL (4.30-5.90); RDW 16.9 % (11.5-15.5); WBC 17.1 k/uL (3.8-10.6)
[2020-09-25] MEDS: SODIUM CHLORIDE 0.9% 1,000 ML IV SCH ×3 (05:59→22:59)
[2020-09-25] MEDS: HEPARIN SODIUM,PORCINE/PF 5,000 UNIT/0.5 ML SYRINGE SQ SCH ×3 (08:22→23:03)
[2020-09-25] MEDS: atenoloL 50 MG TAB PO SCH (09:10)
[2020-09-25 09:16] LABS: INR 1.2 (<1.2); Prothrombin Time 12.1 sec (9.0-12.0)
[2020-09-25] MEDS ORDERED: INDOMETHACIN 50MG SUPPOSITORY RECTAL ONE (12:30)
[2020-09-25] MEDS ORDERED: fentaNYL (PF) 50 MCG/ML 2 ML AMP ONE (14:19)
[2020-09-25] MEDS ORDERED: KETAMINE 10 MG/ML 20 ML VIAL ONE (14:19)
[2020-09-25] MEDS ORDERED: PROPOFOL 10 MG/ML 20 ML VIAL IV ONE (14:19)
[2020-09-25] MEDS ORDERED: LIDOCAINE 1% INJ 10MG/ML (20 ML MDV) ONE (14:19)
[2020-09-25] MEDS ORDERED: MIDAZOLAM 2 MG/2 ML VIAL ONE (14:19)
--- NOTE | 2020-09-25 14:19 | P.PN ---
Subjective Progress Note Date: 09/25/20 Hospital course: Patient is a very pleasant 85-year-old male with a past medical history of hypertension and peripheral arterial disease. He reports he was recently found to have elevated liver enzymes and has been being worked up as an outpatient basis. Patient had a liver ultrasound and MRCP which suggested cholestasis with multiple gallstones. Patient presented to the emergency department on 09/24/20 with a chief complaint of right upper quadrant abdominal pain 1 day associated with nausea, vomiting, and diarrhea. Patient admitted under our services for acute ascending cholangitis with transaminitis and HERMELINDO. Abdominal ultrasound completed revealing numerous gallstones. Patient was under leukocytosis with a WBC count of 17.1, anemia with hemoglobin of 10.8, and thrombocytopenia with platelet count of 104,000. Acute kidney injury with BUN of 38, creatinine 1.63, and GFR of 38 with baseline hemoglobin of 1.2. Physical exam: General: non toxic, no distress, appears at stated age Derm: warm, dry Head: atraumatic, normocephalic, symmetric Eyes: EOMI, no lid lag, anicteric sclera Mouth: no lip lesion, mucus membranes moist Cardiovascular: S1S2 reg, no murmur, positive posterior tibial pulse bilateral, Lungs: CTA bilateral, no rhonchi, no rales , no accessory muscle use Abdominal: soft, tenderness to palpation, no guarding, no appreciable organomegaly Ext: no gross muscle atrophy, no edema, no contractures Neuro: CN II-XI grossly intact, no focal neuro deficits Psych: Alert, oriented, appropriate affect Plan of care: Acute ascending cholangitis -Outpatient MRCP revealed choledocholithiasis with possible obstructive jaundice pattern -Continue IV antibiotics with Zosyn -Gen. surgery following, appreciate further recommendations -Symptomatic care and pain management -Gentle hydration with IV fluids -NPO until cleared by general surgery. Acute kidney injury -Acute kidney injury with BUN of 38, creatinine 1.63, and GFR of 38 with baseline hemoglobin of 1.2. -Continue gentle hydration with IV fluids -Continued close monitoring with repeat a.m. labs. -Hold nephrotoxic medications, such as lisinopril. Transaminitis -Total bili 2.4, AST 337, ALT Twenter 98, and alkaline phosphatase of 152. -Outpatient MRCP revealed choledocholithiasis with possible obstructive jaundice pattern -Gen. surgery following, appreciate further recommendations -Symptomatic care and pain management -Gentle hydration with IV fluids -NPO until cleared by general surgery. -Continue close monitoring with repeat a.m. labs. -Avoid hepatotoxic medications. Normocytic normochromic anemia -Hemoglobin 10.8 -We will continue to monitor with repeat a.m. labs Thrombocytopenia -Platelet count 104,000, likely secondary to impaired for function with recently acquired transaminitis. -Treatment of acute ascending cholangitis. -Continued close monitoring with repeat a.m. labs. Hypertension -Monitor vital signs and resume atenolol, however lisinopril held at this time secondary to HERMELINDO. CODE STATUS: DO NOT RESUSCITATE/DO NOT INTUBATE DVT prophylaxis: Heparin Discussed with: Patient and RN Anticipated discharge date: Clinical course to determine Anticipated discharge place: Home A total of 45 minutes was spent on the care of this complex patient more than 50% of the time was spent in counseling and care coordination. Objective - Vital Signs Vital signs: Vital Signs Temp 97.7 F 09/25/20 08:15 Pulse 69 09/25/20 08:15 Resp 18 09/25/20 08:15 BP 94/46 09/25/20 08:15 Pulse Ox 95 09/25/20 08:15 Intake & Output 09/24/20 09/25/20 09/25/20 18:59 06:59 18:59 Output Total 100 Balance -100 Weight 47.1 kg Output: Urine 100 Other: Voiding Method Toilet Toilet Urinal Urinal # Voids 1 - Labs CBC & Chem 7: 09/25/20 05:12 09/25/20 05:12 Labs: Abnormal Lab Results - Last 24 Hours (Table) 09/24/20 09/24/20 09/24/20 Range/Units 20:21 20:21 20:21 WBC 17.9 H (3.8-10.6) k/uL RBC (4.30-5.90) m/uL Hgb (13.0-17.5) gm/dL Hct (39.0-53.0) % RDW 16.8 H (11.5-15.5) % Plt Count 129 L (150-450) k/uL Neutrophils # (1.3-7.7) k/uL Neutrophils # (Manual) 17.10 H (1.3-7.7) k/uL Lymphocytes # (1.0-4.8) k/uL Lymphocytes # (Manual) 0.72 L (1.0-4.8) k/uL PT (9.0-12.0) sec INR (<1.2) Sodium (137-145) mmol/L Chloride 109 H (98-107) mmol/L Carbon Dioxide 19 L (22-30) mmol/L BUN 35 H (9-20) mg/dL Creatinine 1.68 H (0.66-1.25) mg/dL Plasma Lactic Acid Nima 3.8 H* (0.7-2.0) mmol/L Calcium (8.4-10.2) mg/dL Magnesium 1.5 L (1.6-2.3) mg/dL Total Bilirubin 2.9 H (0.2-1.3) mg/dL AST 602 H (17-59) U/L ALT 410 H (4-49) U/L Alkaline Phosphatase 200 H (38-126) U/L Total Protein 5.9 L (6.3-8.2) g/dL Albumin 3.4 L (3.5-5.0) g/dL Urine Protein (Negative) Urine Blood (Negative) Urine WBC (0-5) /hpf Amorphous Sediment (None) /hpf Urine Bacteria (None) /hpf Hyaline Casts (0-2) /lpf 09/25/20 09/25/20 09/25/20 Range/Units 01:13 05:12 05:12 WBC 17.1 H (3.8-10.6) k/uL RBC 3.54 L (4.30-5.90) m/uL Hgb 10.8 L (13.0-17.5) gm/dL Hct 32.8 L (39.0-53.0) % RDW 16.9 H (11.5-15.5) % Plt Count 104 L (150-450) k/uL Neutrophils # 15.7 H (1.3-7.7) k/uL Neutrophils # (Manual) (1.3-7.7) k/uL Lymphocytes # 0.9 L (1.0-4.8) k/uL Lymphocytes # (Manual) (1.0-4.8) k/uL PT (9.0-12.0) sec INR (<1.2) Sodium 135 L (137-145) mmol/L Chloride 109 H (98-107) mmol/L Carbon Dioxide 20 L (22-30) mmol/L BUN 38 H (9-20) mg/dL Creatinine 1.63 H (0.66-1.25) mg/dL Plasma Lactic Acid Nima (0.7-2.0) mmol/L Calcium 8.0 L (8.4-10.2) mg/dL Magnesium (1.6-2.3) mg/dL Total Bilirubin 2.4 H (0.2-1.3) mg/dL AST 337 H (17-59) U/L ALT 298 H (4-49) U/L Alkaline Phosphatase 152 H (38-126) U/L Total Protein 4.7 L (6.3-8.2) g/dL Albumin 2.5 L (3.5-5.0) g/dL Urine Protein 1+ H (Negative) Urine Blood Trace H (Negative) Urine WBC 61 H (0-5) /hpf Amorphous Sediment Rare H (None) /hpf Urine Bacteria Rare H (None) /hpf Hyaline Casts 3 H (0-2) /lpf 09/25/20 09/25/20 Range/Units 05:12 08:59 WBC (3.8-10.6) k/uL RBC (4.30-5.90) m/uL Hgb (13.0-17.5) gm/dL Hct (39.0-53.0) % RDW (11.5-15.5) % Plt Count (150-450) k/uL Neutrophils # (1.3-7.7) k/uL Neutrophils # (Manual) (1.3-7.7) k/uL Lymphocytes # (1.0-4.8) k/uL Lymphocytes # (Manual) (1.0-4.8) k/uL PT 12.1 H (9.0-12.0) sec INR 1.2 H (<1.2) Sodium (137-145) mmol/L Chloride (98-107) mmol/L Carbon Dioxide (22-30) mmol/L BUN (9-20) mg/dL Creatinine (0.66-1.25) mg/dL Plasma Lactic Acid Nima (0.7-2.0) mmol/L Calcium (8.4-10.2) mg/dL Magnesium 3.0 H (1.6-2.3) mg/dL Total Bilirubin (0.2-1.3) mg/dL AST (17-59) U/L ALT (4-49) U/L Alkaline Phosphatase (38-126) U/L Total Protein (6.3-8.2) g/dL Albumin (3.5-5.0) g/dL Urine Protein (Negative) Urine Blood (Negative) Urine WBC (0-5) /hpf Amorphous Sediment (None) /hpf Urine Bacteria (None) /hpf Hyaline Casts (0-2) /lpf Microbiology - Last 24 Hours (Table) 09/25/20 01:13 Urine Culture - Preliminary Urine,Voided
[2020-09-25] MEDS ORDERED: IV FLUID CONTINUATION 1,000 ML IV ONE (15:02)
--- NOTE | 2020-09-25 15:05 | P.PCN ---
Date of Procedure: 09/25/20 Procedure(s) Performed: Brief history: Patient is a 85 year-old pleasant white male scheduled for an ERCP as part of evaluation of abdominal pain and elevated serum transaminases for the last 2 days' duration. He was noted to have elevated LFTs an outpatient basis and had an MRCP done 2 weeks ago that showed common bile duct stones and multiple gallstones.. Procedure performed: EGD/attempted ERCP Preoperative diagnoses: Right upper quadrant abdominal pain/elevated LFTs/Choledocholithiasis IV sedation per anesthesia: Procedure: After informed consent was obtained from the patient and after the risks benefits and complications including bleeding perforation and pancreatitis explained in detail the patient was brought into the endoscopy unit. The patient was placed in prone position and IV conscious sedation was administered by anesthesia under continuous monitoring. The Olympus side-viewing duodenoscope was then inserted into the mouth and esophagus intubated without any difficulty. The scope was gradually advanced into the stomach but despite multiple times I was not able to advance the scope into the duodenum. At this time an EGD was performed using a part of the scope was able to advance the scope into the mouth, esophagus and stomach and into the duodenum without any difficulty. 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 At this time the scope was removed and a used a different side-viewing duodenoscope and some difficulty was able to advance the scope into the second part of the duodenum. Despite multiple attempts I was not able to visualize the ampullary orifice because of some anatomical variation. This was tried for at least 20 minutes and then the procedure was terminated. Patient tolerated the procedure well. Impression: Upper endoscopy revealed mild anatomical variation with the stomach position more horizontally. Multiple attempts at advancing the scope scope into the duodenum and visualizing the ampullary orifice was not successful. Hence ERCP could not be performed. Recommendations: The findings of this examination were discussed with the patient as well as a family. We will transfer him to [facility] for ERCP.
--- NOTE | 2020-09-25 15:51 | P.GSCN ---
History of Present Illness Consult date: 09/25/20 History of present illness: CHIEF COMPLAINT: Right upper quadrant abdominal pain HISTORY OF PRESENT ILLNESS: This is a 85-year-old male with a known history of hypertension and peripheral artery disease. He's had past surgery for a white right inguinal hernia repair with Dr. Fried. Patient presents to the hospital due to severe right upper quadrant abdominal pain and blood work with elevated LFTs outpatient. He had a MRCP done outpatient with suggestions of c holedocholithiasis. They had shown evidence of common bile duct stones and gallbladder had multiple large gallstones. Patient had worsening right upper quadrant abdominal pain for the last day with nausea and vomiting. He had been rating the pain 8 out of 10. He also reported having some dark urine. Patient is now lying in bed comfortably. His pain has resolved. He was scheduled for an ERCP today however GI service could not get the scope to be advanced. Therefore the ERCP was canceled and they're recommending transfer to [facility] for ERCP. Patient had abdominal ultrasound showing numerous gallstones. Surgical service consult regarding cholelithiasis. PAST MEDICAL HISTORY: See list. PAST SURGICAL HISTORY: See list. MEDICATIONS: See list. ALLERGIES: See list. SOCIAL HISTORY: No illicit drug use. REVIEW OF SYSTEMS: CONSTITUTIONAL: Denies fever or chills. HEENT: Denies blurred vision, vision changes, or eye pain. Denies hemoptysis CARDIOVASCULAR: Denies chest pain or pressure. RESPIRATORY: No shortness of breath. GASTROINTESTINAL: See HPI for pertinent findings HEMATOLOGIC: Denies bleeding disorders. GENITOURINARY: Denies any blood in urine or increased urinary frequency. SKIN: Denies pruitis. Denies rash. PHYSICAL EXAM: VITAL SIGNS: Reviewed GENERAL: Well-developed in no acute distress. HEENT: No sclera icterus. Extraocular movements grossly intact. Moist buccal mucosa. Head is atraumatic, normocephalic. No nasal drainage. ABDOMEN: Soft. Nondistended. Nontender NEUROLOGIC: Alert and oriented. Cranial nerves II through XII grossly intact. LABORATORY DATA: WBC 17.9 down to 17.1 hemoglobin 10.8 platelets 104 INR 1.2 Sodium 135 potassium 4.4 creatinine 1.63 Total bilirubin 2.9 down to 2.4 AST 602 down to 337 ALT for 10 down to 298 lipase normal IMAGING: Ultrasound as stated above ASSESSMENT: 1. Right upper quadrant abdominal pain 2. Acute cholecystitis 3. Choledocholithiasis 4. Cholelithiasis PLAN: -Patient was scheduled for laparoscopic cholecystectomy with Dr. Fried on 09/29/2020 -Agree with transfer to [facility] for ERCP -Continue antibiotics -Continue IV fluids -Continue pain medication as needed Thank you for this consultation Physician Clinical Genetics Laboratory Chief note has been reviewed by physician. Signing provider agrees with the documented findings, assessment, and plan of care. 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 LEFT LEG GRAFT History of Any Multi-Drug Resistant Organisms: None Reported Past Surgical History: Hernia Repair Additional Past Surgical History / Comment(s): AORTO-BIFEMORAL GRAFT LEFT SIDE Past Anesthesia/Blood Transfusion Reactions: No Reported Reaction Past Psychological History: No Psychological Hx Reported Past Alcohol Use History: Daily - Past Family History Brother(s) Family Medical History: Cancer Sister(s) Family Medical History: Cancer Medications and Allergies Home Medications Medication Instructions Recorded Confirmed Type Furosemide [Lasix] 40 mg PO DAILY 05/05/15 09/24/20 History allopurinoL [Zyloprim] 100 mg PO DAILY 05/05/15 09/24/20 History atenoloL [Tenormin] 50 mg PO DAILY 05/05/15 09/24/20 History lisinopriL 40 mg PO DAILY 05/05/15 09/24/20 History Atorvastatin Calcium [Lipitor] 80 mg PO DAILY 06/08/18 09/24/20 History Allergies Allergy/AdvReac Type Severity Reaction Status Date / Time No Known Allergies Allergy Verified 09/24/20 23:11 Surgical - Exam Vital Signs Temp Pulse Resp BP Pulse Ox 98.0 F 86 18 96/55 98 09/24/20 19:59 09/24/20 19:59 09/24/20 19:59 09/24/20 19:59 09/24/20 19:59 Results - Labs 09/25/20 05:12 09/25/20 05:12 Abnormal Lab Results - Last 24 Hours (Table) 09/24/20 09/24/20 09/24/20 Range/Units 20:21 20:21 20: WBC 17.9 H (3.8-10.6) k/uL RBC (4.30-5.90) m/uL Hgb (13.0-17.5) gm/dL Hct (39.0-53.0) % RDW 16.8 H (11.5-15.5) % Plt Count 129 L (150-450) k/uL Neutrophils # (1.3-7.7) k/uL Neutrophils # (Manual) 17.10 H (1.3-7.7) k/uL Lymphocytes # (1.0-4.8) k/uL Lymphocytes # (Manual) 0.72 L (1.0-4.8) k/uL PT (9.0-12.0) sec INR (<1.2) Sodium (137-145) mmol/L Chloride 109 H (98-107) mmol/L Carbon Dioxide 19 L (22-30) mmol/L BUN 35 H (9-20) mg/dL Creatinine 1.68 H (0.66-1.25) mg/dL Plasma Lactic Acid Nima 3.8 H* (0.7-2.0) mmol/L Calcium (8.4-10.2) mg/dL Magnesium 1.5 L (1.6-2.3) mg/dL Total Bilirubin 2.9 H (0.2-1.3) mg/dL AST 602 H (17-59) U/L ALT 410 H (4-49) U/L Alkaline Phosphatase 200 H (38-126) U/L Total Protein 5.9 L (6.3-8.2) g/dL Albumin 3.4 L (3.5-5.0) g/dL Urine Protein (Negative) Urine Blood (Negative) Urine WBC (0-5) /hpf Amorphous Sediment (None) /hpf Urine Bacteria (None) /hpf Hyaline Casts (0-2) /lpf 09/25/20 09/25/20 09/25/20 Range/Units 01:13 05:12 05:12 WBC 17.1 H (3.8-10.6) k/uL RBC 3.54 L (4.30-5.90) m/uL Hgb 10.8 L (13.0-17.5) gm/dL Hct 32.8 L (39.0-53.0) % RDW 16.9 H (11.5-15.5) % Plt Count 104 L (150-450) k/uL Neutrophils # 15.7 H (1.3-7.7) k/uL Neutrophils # (Manual) (1.3-7.7) k/uL Lymphocytes # 0.9 L (1.0-4.8) k/uL Lymphocytes # (Manual) (1.0-4.8) k/uL PT (9.0-12.0) sec INR (<1.2) Sodium 135 L (137-145) mmol/L Chloride 109 H (98-107) mmol/L Carbon Dioxide 20 L (22-30) mmol/L BUN 38 H (9-20) mg/dL Creatinine 1.63 H (0.66-1.25) mg/dL Plasma Lactic Acid Nima (0.7-2.0) mmol/L Calcium 8.0 L (8.4-10.2) mg/dL Magnesium (1.6-2.3) mg/dL Total Bilirubin 2.4 H (0.2-1.3) mg/dL AST 337 H (17-59) U/L ALT 298 H (4-49) U/L Alkaline Phosphatase 152 H (38-126) U/L Total Protein 4.7 L (6.3-8.2) g/dL Albumin 2.5 L (3.5-5.0) g/dL Urine Protein 1+ H (Negative) Urine Blood Trace H (Negative) Urine WBC 61 H (0-5) /hpf Amorphous Sediment Rare H (None) /hpf Urine Bacteria Rare H (None) /hpf Hyaline Casts 3 H (0-2) /lpf 09/25/20 09/25/20 09/25/20 Range/Units 05:12 08:59 11:01 WBC (3.8-10.6) k/uL RBC (4.30-5.90) m/uL Hgb (13.0-17.5) gm/dL Hct (39.0-53.0) % RDW (11.5-15.5) % Plt Count (150-450) k/uL Neutrophils # (1.3-7.7) k/uL Neutrophils # (Manual) (1.3-7.7) k/uL Lymphocytes # (1.0-4.8) k/uL Lymphocytes # (Manual) (1.0-4.8) k/uL PT 12.1 H (9.0-12.0) sec INR 1.2 H (<1.2) Sodium (137-145) mmol/L Chloride (98-107) mmol/L Carbon Dioxide (22-30) mmol/L BUN (9-20) mg/dL Creatinine (0.66-1.25) mg/dL Plasma Lactic Acid Nima (0.7-2.0) mmol/L Calcium (8.4-10.2) mg/dL Magnesium 3.0 H 2.9 H (1.6-2.3) mg/dL Total Bilirubin (0.2-1.3) mg/dL AST (17-59) U/L ALT (4-49) U/L Alkaline Phosphatase (38-126) U/L Total Protein (6.3-8.2) g/dL Albumin (3.5-5.0) g/dL Urine Protein (Negative) Urine Blood (Negative) Urine WBC (0-5) /hpf Amorphous Sediment (None) /hpf Urine Bacteria (None) /hpf Hyaline Casts (0-2) /lpf Microbiology - Last 24 Hours (Table) 09/25/20 01:13 Urine Culture - Preliminary Urine,Voided Diabetes panel 09/24/20 09/25/20 Range/Units 20:21 05:12 Sodium 139 135 L (137-145) mmol/L Potassium 4.2 4.4 (3.5-5.1) mmol/L Chloride 109 H 109 H (98-107) mmol/L Carbon Dioxide 19 L 20 L (22-30) mmol/L BUN 35 H 38 H (9-20) mg/dL Creatinine 1.68 H 1.63 H (0.66-1.25) mg/dL Glucose 90 91 (74-99) mg/dL Calcium 9.4 8.0 L (8.4-10.2) mg/dL AST 602 H 337 H (17-59) U/L ALT 410 H 298 H (4-49) U/L Alkaline Phosphatase 200 H 152 H (38-126) U/L Total Protein 5.9 L 4.7 L (6.3-8.2) g/dL Albumin 3.4 L 2.5 L (3.5-5.0) g/dL Calcium panel 09/24/20 09/25/20 Range/Units 20:21 05:12 Calcium 9.4 8.0 L (8.4-10.2) mg/dL Albumin 3.4 L 2.5 L (3.5-5.0) g/dL Pituitary panel 09/24/20 09/25/20 Range/Units 20:21 05:12 Sodium 139 135 L (137-145) mmol/L Potassium 4.2 4.4 (3.5-5.1) mmol/L Chloride 109 H 109 H (98-107) mmol/L Carbon Dioxide 19 L 20 L (22-30) mmol/L BUN 35 H 38 H (9-20) mg/dL Creatinine 1.68 H 1.63 H (0.66-1.25) mg/dL Glucose 90 91 (74-99) mg/dL Calcium 9.4 8.0 L (8.4-10.2) mg/dL Adrenal panel 09/24/20 09/25/20 Range/Units 20:21 05:12 Sodium 139 135 L (137-145) mmol/L Potassium 4.2 4.4 (3.5-5.1) mmol/L Chloride 109 H 109 H (98-107) mmol/L Carbon Dioxide 19 L 20 L (22-30) mmol/L BUN 35 H 38 H (9-20) mg/dL Creatinine 1.68 H 1.63 H (0.66-1.25) mg/dL Glucose 90 91 (74-99) mg/dL Calcium 9.4 8.0 L (8.4-10.2) mg/dL Total Bilirubin 2.9 H 2.4 H (0.2-1.3) mg/dL AST 602 H 337 H (17-59) U/L ALT 410 H 298 H (4-49) U/L Alkaline Phosphatase 200 H 152 H (38-126) U/L Total Protein 5.9 L 4.7 L (6.3-8.2) g/dL Albumin 3.4 L 2.5 L (3.5-5.0) g/dL
--- NOTE | 2020-09-25 22:41 | CONS ---
CONSULTATION DATE OF SERVICE: 09/25/2020 REQUESTING PHYSICIAN: Dr. Dill ) REASON FOR CONSULTATION: Abdominal pain, elevated LFTs. HISTORY OF PRESENT ILLNESS: The patient is a 85-year-old pleasant white male admitted to hospital with acute right upper quadrant abdominal pain for the last 2 days' duration. The patient was seen by my nurse practitioner, Rocio Walsh, in the office for elevated LFTs and had an MRCP done on an outpatient basis that showed evidence of choledocholithiasis. However, yesterday he started having some right upper quadrant abdominal pain associated with some nausea, vomiting and came to the emergency room and subsequently was noted to have elevated LFTs and mild jaundice with a bilirubin of 2.1, and hence we are consulted for an ERCP. The patient is doing better today. Abdominal pain has resolved. No further episodes of nausea, vomiting. PAST MEDICAL HISTORY: Hypertension hyperlipidemia. PAST SURGICAL HISTORY: Aortic bifemoral graft from the left side. MEDICATIONS: At home, Lasix, Zyloprim, Tenormin, lisinopril, Lipitor. ALLERGIES: None. SOCIAL HISTORY: No smoking, no alcohol use. FAMILY HISTORY: Unremarkable. Brother had some kind of cancer. REVIEW OF SYSTEMS: CARDIOPULMONARY: No chest pain or shortness of breath. : No dysuria, no hematuria. MUSCULOSKELETAL: Unremarkable. SKIN: Unremarkable. ENDOCRINE: Unremarkable. PSYCHIATRIC: Unremarkable. NEUROLOGY: Unremarkable. ENT/VISION: Unremarkable. CONSTITUTIONAL: No recent weight loss. No fever, chills, night sweats. PHYSICAL EXAMINATION: He appears comfortable. VITAL SIGNS: Stable. Blood pressure is 97/67, pulse is 75, temperature 97.4. HEENT: Examination unremarkable. Conjunctivae pink. Sclerae anicteric. Oral cavity, no lesions. NECK: No JVD. No lymph node enlargement. CHEST: Clear to auscultation. HEART: Regular rate and rhythm. ABDOMEN: Soft bowel sounds are positive. Mild tenderness in the epigastric area. EXTREMITIES: No pedal edema. SKIN: No rashes. NEUROLOGIC: Alert and oriented x3. No focal deficits. LABS: From today, bilirubin is 2.4, AST 337, ALT 298, alkaline phosphatase 152. WBC 17.1, hemoglobin 10.8, platelets 104. INR 1.2. IMPRESSION: 1. This is a patient who presented to the hospital with right upper quadrant abdominal pain and noted to have elevated LFTs and mild jaundice. MRCP done 2 weeks ago did show evidence of gallstones and multiple CBD stones measuring 5 and 7 mm in diameter. Does have leukocytosis, suspicious for ascending cholangitis. The patient was already started on broad-spectrum antibiotics in the emergency room. 2. History of hypertension and hyperlipidemia. RECOMMENDATIONS: 1. Continue with broad-spectrum antibiotics. 2. We will proceed with ERCP today discussed with him the risks, benefits and complications and he is agreeable to it. Thank you for this consultation. MMODL / IJN: [id number] /
[2020-09-26] MEDS: PIPERACILLIN-TAZOBACTAM 3.375 GM in SODIUM CHLORIDE 0.9% 100 ML IVPB SCH ×3 (04:24→20:31)
[2020-09-26] MEDS: SODIUM CHLORIDE 0.9% 1,000 ML IV SCH ×3 (06:43→20:32)
[2020-09-26 09:32] LABS: Anisocytosis Slight; Basophils % (A) 0 %; Eosinophils # (A) 0.2 k/uL (0-0.7); Eosinophils % (A) 2 %; HCT 28.8 % (39.0-53.0); HGB 9.5 gm/dL (13.0-17.5); Lymphocytes # (A) 0.6 k/uL (1.0-4.8); Lymphocytes % (A) 6 %; MCH 30.9 pg (25.0-35.0); MCHC 33.1 g/dL (31.0-37.0); MCV 93.5 fL (80.0-100.0); Mean Platelet Volume 9.9; Monocytes # (A) 0.1 k/uL (0-1.0); Monocytes % (A) 1 %; Neutrophils # (A) 8.9 k/uL (1.3-7.7); Neutrophils % (A) 91 %; RBC 3.08 m/uL (4.30-5.90); RDW 16.9 % (11.5-15.5); WBC 9.8 k/uL (3.8-10.6)
[2020-09-26 09:40] LABS: Albumin 2.2 g/dL (3.5-5.0); Calcium 7.7 mg/dL (8.4-10.2); Potassium 3.9 mmol/L (3.5-5.1); Total Bilirubin 1.1 mg/dL (0.2-1.3); Total Protein 4.2 g/dL (6.3-8.2)
[2020-09-26] MEDS: atenoloL 50 MG TAB PO SCH (09:54)
[2020-09-26 10:39] LABS: Glucose,Whole Blood 180 mg/dL (75-99)
[2020-09-26 11:48] LABS: Platelet Count 78 k/uL (150-450); Poikilocytosis (M) Present
[2020-09-26] MEDS: HEPARIN SODIUM,PORCINE/PF 5,000 UNIT/0.5 ML SYRINGE SQ SCH ×2 (12:10→14:41)
[2020-09-26] MEDS: HYDROmorphone 0.5 MG/0.5 ML SYRINGE IVP PRN ×2 (12:16→20:45)
--- NOTE | 2020-09-26 13:43 | P.PN ---
<Niles Dominguez - Last Filed: 09/26/20 13:26> Subjective Progress Note Date: 09/26/20 Hospital course: Patient is a very pleasant 85-year-old male with a past medical history of hyp ertension and peripheral arterial disease. He reports he was recently found to have elevated liver enzymes and has been being worked up as an outpatient basis. Patient had a liver ultrasound and MRCP which suggested cholestasis with multiple gallstones. Patient presented to the emergency department on 09/24/20 with a chief complaint of right upper quadrant abdominal pain 1 day associated with nausea, vomiting, and diarrhea. Patient admitted under our services for acute ascending cholangitis with transaminitis and HERMELINDO. Abdominal ultrasound completed revealing numerous gallstones. Patient was under leukocytosis with a WBC count of 17.1, anemia with hemoglobin of 10.8, and thrombocytopenia with platelet count of 104,000. Acute kidney injury with BUN of 38, creatinine 1.63, and GFR of 38 with baseline hemoglobin of 1.2. Patient was taken for ERCP yesterday afternoon with Dr. Huang, however it was reported that scope could not be advanced and patient will need to be transferred to [facility] to have ERCP completed. Call was made to transfer center and patient was accepted for transfer at [facility] by Dr. Wolfe. Patient is currently awaiting a bed assignment for transfer to be completed. Blood cultures positive for E. coli, patient provided coverage with continued use of IV antibiotics: Zosyn. Physical exam: Patient was seen in place evaluated at the bedside this morning. He continues to have mild discomfort to left upper quadrant and right upper quadrant with palpation. Patient did have episode of dizziness/lightheadedness accompanied by diaphoresis upon walking to bathroom and was assisted safely back into bed resulting in resolution of symptoms. Upon getting back to bed blood pressure was 106/56 and blood glucose was 180. Patient denied having any other complaints including headache, changes in vision or hearing, tinnitus, chest pain or palpitations, shortness of breath, or experiencing any numb ness/tingling/weakness in extremities. General: non toxic, no distress, appears at stated age, very thin build Derm: warm, dry Head: atraumatic, normocephalic, symmetric Eyes: EOMI, no lid lag, anicteric sclera Mouth: no lip lesion, mucus membranes moist Cardiovascular: S1S2 reg, no murmur, positive posterior tibial pulse bilateral, Lungs: CTA bilateral, no rhonchi, no rales , no accessory muscle use Abdominal: soft, tenderness to palpation in right upper quadrant, epigastric region and left upper quadrant, no guarding, no appreciable organomegaly Ext: no gross muscle atrophy, no edema, no contractures Neuro: CN II-XI grossly intact, no focal neuro deficits Psych: Alert, oriented, appropriate affect Plan of care: Acute ascending cholangitis -Outpatient MRCP revealed choledocholithiasis with possible obstructive jaundice pattern. -Patient was taken for ERCP yesterday afternoon with Dr. Huang, however it was reported that scope could not be advanced and patient will need to be t ransferred to [facility] to have ERCP completed. -Call was made to transfer center and patient was accepted for transfer at [facility] by Dr. Wolfe. Patient is currently awaiting a bed assignment for transfer to be completed. -Blood cultures positive for E. coli. -Continue IV antibiotics with Zosyn -Gen. surgery following, in agreement with transfer to [facility] to have ERCP completed -Symptomatic care and pain management -Gentle hydration with IV fluids Acute kidney injury -Acute kidney injury with BUN of 48, creatinine 1.90, GFR of 32 with baseline creatinine of 1.2. -Continue gentle hydration with IV fluids -Continued close monitoring with repeat a.m. labs. -Hold nephrotoxic medications, such as lisinopril. Transaminitis, improving -Initial Total bili 2.9, AST 602, ALT 410, and alkaline phosphatase of 200. Improving with total bili of 1.1, AST 117, ALP 174, and alkaline phosphatase of 111. -Gentle hydration with IV fluids -Patient pending transfer to [facility] to have ERCP completed -Continue close monitoring with repeat a.m. labs. -Avoid hepatotoxic medications. Normocytic normochromic anemia -Hemoglobin 9.5 -We will continue to monitor with repeat a.m. labs Thrombocytopenia -Platelet count 78,000, likely secondary to impaired for function with recently acquired transaminitis. -Treatment of acute ascending cholangitis. -Continued close monitoring with repeat a.m. labs. Hypertension -Monitor vital signs and resume atenolol, however lisinopril held at this time secondary to HERMELINDO. CODE STATUS: DO NOT RESUSCITATE/DO NOT INTUBATE DVT prophylaxis: Heparin Discussed with: Patient and RN Anticipated discharge date: Patient pending transfer to [facility] for ERCP. Awaiting bed assignment. Accepting physician was Dr. Wolfe. A total of 45 minutes was spent on the care of this complex patient more than 50% of the time was spent in counseling and care coordination. Objective - Vital Signs Vital signs: Vital Signs Temp 96.4 F L 09/26/20 11:26 Pulse 51 L 09/26/20 11:58 Resp 18 09/26/20 11:58 BP 105/47 09/26/20 11:58 Pulse Ox 100 09/26/20 11:58 Intake & Output 09/25/20 09/26/20 09/26/20 18:59 06:59 18:59 Intake Total 200 660 Output Total 200 Balance 200 460 Weight 51 kg Intake: IV 200 Oral 660 Output: Urine 200 Other: Voiding Method Toilet Urinal # Voids 1 0 1 # Bowel Movements 1 1 - Labs CBC & Chem 7: 09/26/20 08:31 09/26/20 08:31 Labs: Abnormal Lab Results - Last 24 Hours (Table) 09/26/20 09/26/20 09/26/20 Range/Units 08:31 08:31 10:37 RBC 3.08 L (4.30-5.90) m/uL Hgb 9.5 L (13.0-17.5) gm/dL Hct 28.8 L (39.0-53.0) % RDW 16.9 H (11.5-15.5) % Plt Count 78 L (150-450) k/uL Neutrophils # 8.9 H (1.3-7.7) k/uL Lymphocytes # 0.6 L (1.0-4.8) k/uL Chloride 112 H (98-107) mmol/L Carbon Dioxide 20 L (22-30) mmol/L BUN 48 H (9-20) mg/dL Creatinine 1.90 H (0.66-1.25) mg/dL POC Glucose (mg/dL) 180 H (75-99) mg/dL Calcium 7.7 L (8.4-10.2) mg/dL AST 117 H (17-59) U/L ALT 174 H (4-49) U/L Total Protein 4.2 L (6.3-8.2) g/dL Albumin 2.2 L (3.5-5.0) g/dL Microbiology - Last 24 Hours (Table) 09/25/20 05:12 Blood Culture Gram Stain - Preliminary Blood Blood Culture - Preliminary Escherichia coli 09/25/20 05:12 Blood Culture - Final Blood 09/25/20 01:13 Urine Culture - Preliminary Urine,Voided <Monica,Ana Laura A - Last Filed: 09/26/20 22:18> Subjective Instrument DVT not seen -Labs were extensively reviewed and white blood cell count is decreasing, transaminitis is improving and bilirubin has normalized. Patient does have E. coli bacteremia currently awaiting susceptibilities. Continue with Zosyn. Continue to await bed at [facility] Objective - Vital Signs Vital signs: Vital Signs Temp 98.5 F 09/26/20 20:00 Pulse 56 L 09/26/20 20:00 Resp 17 09/26/20 20:00 BP 102/64 09/26/20 20:00 Pulse Ox 96 09/26/20 20:00 Intake & Output 09/26/20 09/26/20 09/27/20 06:59 18:59 06:59 Intake Total 660 Output Total 200 80 Balance 460 -80 Weight 51 kg Intake: Oral 660 Output: Urine 200 80 Other: Voiding Method Urinal Urinal # Voids 0 1 # Bowel Movements 1 - Labs CBC & Chem 7: 09/26/20 08:31 09/26/20 08:31 Labs: Abnormal Lab Results - Last 24 Hours (Table) 09/26/20 09/26/20 09/26/20 Range/Units 08:31 08:31 10:37 RBC 3.08 L (4.30-5.90) m/uL Hgb 9.5 L (13.0-17.5) gm/dL Hct 28.8 L (39.0-53.0) % RDW 16.9 H (11.5-15.5) % Plt Count 78 L (150-450) k/uL Neutrophils # 8.9 H (1.3-7.7) k/uL Lymphocytes # 0.6 L (1.0-4.8) k/uL Chloride 112 H (98-107) mmol/L Carbon Dioxide 20 L (22-30) mmol/L BUN 48 H (9-20) mg/dL Creatinine 1.90 H (0.66-1.25) mg/dL POC Glucose (mg/dL) 180 H (75-99) mg/dL Calcium 7.7 L (8.4-10.2) mg/dL AST 117 H (17-59) U/L ALT 174 H (4-49) U/L Total Protein 4.2 L (6.3-8.2) g/dL Albumin 2.2 L (3.5-5.0) g/dL Microbiology - Last 24 Hours (Table) 09/25/20 01:13 Urine Culture - Final Urine,Voided 09/25/20 05:12 Blood Culture Gram Stain - Preliminary Blood Blood Culture - Preliminary Escherichia coli 09/25/20 05:12 Blood Culture - Final Blood
--- NOTE | 2020-09-26 14:06 | P.PN ---
<Natalia Dial - Last Filed: 09/26/20 13:56> Subjective Progress Note Date: 09/26/20 CHIEF COMPLAINT: Right upper quadrant abdominal pain HISTORY OF PRESENT ILLNESS: Patient being for acute cholecystitis. Patient has choledocholithiasis. ERCP aborted yesterday. And patient has been transferred to [facility] for an ERCP. He is just awaiting bed placement. He is complaining of right upper quadrant abdominal pain. He is currently on a clear liquid diet. He does have a blood culture positive for E. coli. WBC is 9.8 hemoglobin 9.5 with 78 total bilirubin 2.4 down to 1.1 AST done from 337 to 117 ALT 298 down to 174 PHYSICAL EXAM: VITAL SIGNS: Reviewed. GENERAL: Well-developed in no acute distress. HEENT: No sclera icterus. Extraocular movements grossly intact. Moist buccal mucosa. Head is atraumatic, normocephalic. ABDOMEN: Soft. Nondistended. Right upper quadrant tenderness NEUROLOGIC: Alert and oriented. Cranial nerves II through XII grossly intact. ASSESSMENT: 1. Right upper quadrant abdominal pain 2. Acute cholecystitis 3. Choledocholithiasis 4. Cholelithiasis 5. E. coli bacteremia likely due to the acute cholecystitis 6. Possible ascending cholangitis PLAN: -Agree with transferring to [facility] for ERCP -Continue antibiotics -Continue pain medication as needed -Continue clear liquid diet Physician Environmental Marketing Representative note has been reviewed by physician. Signing provider agrees with the documented findings, assessment, and plan of care. Objective - Vital Signs Vital signs: Vital Signs Temp 96.4 F L 09/26/20 11:26 Pulse 51 L 09/26/20 11:58 Resp 18 09/26/20 11:58 BP 105/47 09/26/20 11:58 Pulse Ox 100 09/26/20 11:58 Intake & Output 09/25/20 09/26/20 09/26/20 18:59 06:59 18:59 Intake Total 200 660 Output Total 200 Balance 200 460 Weight 51 kg Intake: IV 200 Oral 660 Output: Urine 200 Other: Voiding Method Toilet Urinal # Voids 1 0 1 # Bowel Movements 1 1 - Labs CBC & Chem 7: 09/26/20 08:31 09/26/20 08:31 Labs: Abnormal Lab Results - Last 24 Hours (Table) 0709/26/20 09/26/20 Range/Units 08:31 08:31 10:37 RBC 3.08 L (4.30-5.90) m/uL Hgb 9.5 L (13.0-17.5) gm/dL Hct 28.8 L (39.0-53.0) % RDW 16.9 H (11.5-15.5) % Plt Count 78 L (150-450) k/uL Neutrophils # 8.9 H (1.3-7.7) k/uL Lymphocytes # 0.6 L (1.0-4.8) k/uL Chloride 112 H (98-107) mmol/L Carbon Dioxide 20 L (22-30) mmol/L BUN 48 H (9-20) mg/dL Creatinine 1.90 H (0.66-1.25) mg/dL POC Glucose (mg/dL) 180 H (75-99) mg/dL Calcium 7.7 L (8.4-10.2) mg/dL AST 117 H (17-59) U/L ALT 174 H (4-49) U/L Total Protein 4.2 L (6.3-8.2) g/dL Albumin 2.2 L (3.5-5.0) g/dL Microbiology - Last 24 Hours (Table) 09/25/20 05:12 Blood Culture Gram Stain - Preliminary Blood Blood Culture - Preliminary Escherichia coli 09/25/20 05:12 Blood Culture - Final Blood <Simon Millard - Last Filed: 09/26/20 16:26> Subjective As above. Patient has mild abdominal discomfort. Patient's liver enzymes have improved. Plans for transfer for ERCP. Continue to follow liver enzymes. Continue antibiotics. Objective - Vital Signs Vital signs: Vital Signs Temp 95.8 F L 09/26/20 15:16 Pulse 49 L 09/26/20 15:16 Resp 20 09/26/20 15:16 BP 107/59 09/26/20 15:16 Pulse Ox 100 09/26/20 15:16 Intake & Output 09/25/20 09/26/20 09/26/20 18:59 06:59 18:59 Intake Total 200 660 Output Total 200 Balance 200 460 Weight 51 kg Intake: IV 200 Oral 660 Output: Urine 200 Other: Voiding Method Toilet Urinal # Voids 1 0 1 # Bowel Movements 1 1 - Labs CBC & Chem 7: 09/26/20 08:31 09/26/20 08:31 Labs: Abnormal Lab Results - Last 24 Hours (Table) 09/26/20 09/26/20 09/26/20 Range/Units 08:31 08:31 10:37 RBC 3.08 L (4.30-5.90) m/uL Hgb 9.5 L (13.0-17.5) gm/dL Hct 28.8 L (39.0-53.0) % RDW 16.9 H (11.5-15.5) % Plt Count 78 L (150-450) k/uL Neutrophils # 8.9 H (1.3-7.7) k/uL Lymphocytes # 0.6 L (1.0-4.8) k/uL Chloride 112 H (98-107) mmol/L Carbon Dioxide 20 L (22-30) mmol/L BUN 48 H (9-20) mg/dL Creatinine 1.90 H (0.66-1.25) mg/dL POC Glucose (mg/dL) 180 H (75-99) mg/dL Calcium 7.7 L (8.4-10.2) mg/dL AST 117 H (17-59) U/L ALT 174 H (4-49) U/L Total Protein 4.2 L (6.3-8.2) g/dL Albumin 2.2 L (3.5-5.0) g/dL Microbiology - Last 24 Hours (Table) 09/25/20 01:13 Urine Culture - Final Urine,Voided 09/25/20 05:12 Blood Culture Gram Stain - Preliminary Blood Blood Culture - Preliminary Escherichia coli 09/25/20 05:12 Blood Culture - Final Blood
[2020-09-27] MEDS: HEPARIN SODIUM,PORCINE/PF 5,000 UNIT/0.5 ML SYRINGE SQ SCH ×2 (00:11→08:55)
[2020-09-27] MEDS: PIPERACILLIN-TAZOBACTAM 3.375 GM in SODIUM CHLORIDE 0.9% 100 ML IVPB SCH ×3 (04:51→20:00)
[2020-09-27] MEDS: SODIUM CHLORIDE 0.9% 1,000 ML IV SCH ×4 (04:52→17:45)
[2020-09-27] MEDS: HYDROmorphone 0.5 MG/0.5 ML SYRINGE IVP PRN (04:54)
[2020-09-27 08:51] LABS: Anisocytosis Slight; HCT 20.8 % (39.0-53.0); Hypochromasia Slight; MCH 30.5 pg (25.0-35.0); MCHC 32.1 g/dL (31.0-37.0); MCV 95.1 fL (80.0-100.0); Mean Platelet Volume 11.4; RBC 2.19 m/uL (4.30-5.90); WBC 7.1 k/uL (3.8-10.6)
[2020-09-27 08:54] LABS: Calcium 7.8 mg/dL (8.4-10.2); Potassium 3.9 mmol/L (3.5-5.1)
[2020-09-27] MEDS: atenoloL 50 MG TAB PO SCH ×2 (08:55)
[2020-09-27 09:05] LABS: HGB 6.7 gm/dL (13.0-17.5); Platelet Count 73 k/uL (150-450)
--- NOTE | 2020-09-27 09:50 | P.PN ---
Subjective Progress Note Date: 09/26/20 Principal diagnosis: Choledocholithiasis, right upper quadrant abdominal pain, elevated liver enzymes Patient is seen lying in bed with no acute complaints. Still evidence of abd ominal pain. Tolerating diet. Objective - Vital Signs Vital signs: Vital Signs Temp 96.4 F L 09/26/20 11:26 Pulse 51 L 09/26/20 11:58 Resp 18 09/26/20 11:58 BP 105/47 09/26/20 11:58 Pulse Ox 100 09/26/20 11:58 Intake & Output 09/25/20 09/26/20 09/26/20 18:59 06:59 18:59 Intake Total 200 660 Output Total 200 Balance 200 460 Weight 51 kg Intake: IV 200 Oral 660 Output: Urine 200 Other: Voiding Method Toilet Urinal # Voids 1 0 1 # Bowel Movements 1 1 - Exam On physical examination, patient appears comfortable in no apparent distress. HEAD: Normocephalic, atraumatic. EYES: No scleral icterus. No conjunctival injection. MOUTH: No lesions, tongue midline. NECK: Trachea midline, no gross abnormalities. ABDOMEN: Soft, mildly tender to palpation. Bowel sounds are positive. No organomegaly. No guarding or rigidity. EXTREMITIES: No pedal edema. SKIN: No rashes, no jaundice. NEUROLOGIC: Alert and oriented to person. No focal deficits. - Labs CBC & Chem 7: 09/27/20 07:50 09/27/20 07:50 Labs: Abnormal Lab Results - Last 24 Hours (Table) 09/26/20 09/26/20 09/26/20 Range/Units 08:31 08:31 10:37 RBC 3.08 L (4.30-5.90) m/uL Hgb 9.5 L (13.0-17.5) gm/dL Hct 28.8 L (39.0-53.0) % RDW 16.9 H (11.5-15.5) % Plt Count 78 L (150-450) k/uL Neutrophils # 8.9 H (1.3-7.7) k/uL Lymphocytes # 0.6 L (1.0-4.8) k/uL Chloride 112 H (98-107) mmol/L Carbon Dioxide 20 L (22-30) mmol/L BUN 48 H (9-20) mg/dL Creatinine 1.90 H (0.66-1.25) mg/dL POC Glucose (mg/dL) 180 H (75-99) mg/dL Calcium 7.7 L (8.4-10.2) mg/dL AST 117 H (17-59) U/L ALT 174 H (4-49) U/L Total Protein 4.2 L (6.3-8.2) g/dL Albumin 2.2 L (3.5-5.0) g/dL Microbiology - Last 24 Hours (Table) 09/25/20 05:12 Blood Culture Gram Stain - Preliminary Blood Blood Culture - Preliminary Escherichia coli 09/25/20 05:12 Blood Culture - Final Blood 09/25/20 01:13 Urine Culture - Preliminary Urine,Voided Assessment and Plan (1) Choledocholithiasis Narrative/Plan: 85-year-old male presenting to the hospital with complaints of right upper quadrant abdominal pain. Previous imaging suggestive of choledocholithiasis on MRCP. Patient was taken for ERCP which was unsuccessful secondary to technical difficulty of the procedure due to patient's anatomy with the papilla unable to be cannulated. Currently on broad-spectrum antibiotic therapy the patient is scheduled to be transferred to tertiary center for evaluation by advanced endoscopy service. Current Visit: Yes Status: Acute Code(s): K80.50 - CALCULUS OF BILE DUCT W/O CHOLANGITIS OR CHOLECYST W/O OBST SNOMED Code(s): 027171891 (2) Elevated liver enzymes Current Visit: Yes Status: Acute Code(s): R74.8 - ABNORMAL LEVELS OF OTHER SERUM ENZYMES SNOMED Code(s): 903024497 (3) Right upper quadrant abdominal pain Current Visit: Yes Status: Acute Code(s): R10.11 - RIGHT UPPER QUADRANT PAIN SNOMED Code(s): 678578040 Plan: Supportive care Clear liquid diet Continue to monitor CBC, BMP, LFTs Continue broad-spectrum antibiotic therapy Continue to monitor clinical course Recommend transfer to tertiary center for evaluation by the advanced endoscopy service for ERCP given findings of choledocholithiasis on MRCP Thank you for allowing us to participate in the care of the patient
--- NOTE | 2020-09-27 10:55 | XR ---
EXAMINATION TYPE: XR chest 1V portable DATE OF EXAM: 09/27/2020 COMPARISON: 11/17/2016 INDICATION: Short of breath TECHNIQUE: Single frontal view of the chest is obtained. FINDINGS: The heart size is normal. The pulmonary vasculature is normal. The lungs are clear. There is elevation of the right diaphragm. Note is made of the curvilinear sclerotic area within the proximal diaphyseal right humerus. This is not identified previously. Small sclerotic metastasis is not excluded. IMPRESSION: 1. No acute pulmonary process. 2. Elevation of the right diaphragm. 3. New sclerotic metastasis in the proximal right humerus is not excluded.
[2020-09-27 11:13] LABS: Anisocytosis Slight; Basophils % (A) 0 %; Eosinophils # (A) 0.1 k/uL (0-0.7); Eosinophils % (A) 2 %; HCT 20.5 % (39.0-53.0); Hypochromasia Moderate; Lymphocytes # (A) 0.9 k/uL (1.0-4.8); Lymphocytes % (A) 13 %; MCH 30.9 pg (25.0-35.0); MCHC 31.9 g/dL (31.0-37.0); MCV 96.6 fL (80.0-100.0); Macrocytosis Slight; Mean Platelet Volume 11.1; Monocytes # (A) 0.2 k/uL (0-1.0); Monocytes % (A) 3 %; Neutrophils # (A) 5.7 k/uL (1.3-7.7); Neutrophils % (A) 81 %; RBC 2.12 m/uL (4.30-5.90)
[2020-09-27 11:16] LABS: HGB 6.6 gm/dL (13.0-17.5); Platelet Count 82 k/uL (150-450)
[2020-09-27 11:20] LABS: Total Bilirubin 0.8 mg/dL (0.2-1.3)
--- NOTE | 2020-09-27 11:59 | CT ---
EXAMINATION TYPE: CT abdomen pelvis wo con DATE OF EXAM: 09/27/2020 COMPARISON: To 421 INDICATION: Abd pain DLP: 394.4 mGycm, Automated exposure control for dose reduction was used. CONTRAST: 0 mL of Isovue 300. Study performed without Oral Contrast TECHNIQUE: Axial images were obtained from above the diaphragm to the pubic rami in the axial plane a t 5 mm thick sections. Reconstructed images are reviewed on the computer in the coronal plane. FINDINGS: Limited CT sections are obtained the lung bases. There is a small right pleural effusion. Some compr essive atelectasis or consolidation is at the right lung base. Correlate for pneumonia. Coronary viral ry calcification is present.. CT ABDOMEN: Ascites is present. This could be hemorrhage. Fluid is adjacent to the liver. Small amoun t of fluid is in the paracolic gutters. There is fluid within the pelvis. Some higher density fluid m ay be posterior within the pelvis. This could be acute hemorrhage. Liver: Normal Spleen: The spleen is enlarged with hypodensity extending towards the posterior lateral and superior portions of the spleen. The splenic fracture should be considered as a source for the hemorrhage hemo globin drop. Spleen currently measures 11.7 x 8.4 x 10.9 cm. Pancreas: Normal Adrenal glands: The adrenal glands are normal. Gallbladder: Cholelithiasis is present. Kidneys: No masses are evident. No hydronephrosis is present. No cysts are present. No renal stone s are evident. Aorta: Vascular calcification is within the aorta. 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 Douglas vessels appear calcified and obstructed. No contrast was utilized to evaluate patency of the bypass grafts. Inferior vena cava: Normal. Lymphadenopathy: Scattered small periaortic and retrocaval lymph nodes are present. No obturator jordan l or iliac chain adenopathy is evident. No suspicious inguinal adenopathy. CT PELVIS: Loops of bowel within the abdomen and pelvis are normal. The study is without oral contrast limit ing bowel evaluation. Appendix: Normal as visualized. Urinary bladder: Normal. Genitourinary structures: Prostate is slightly prominent. Osseous structures: No suspicious lytic or sclerotic lesions. Degenerative disc changes are within th e lumbar spine. IMPRESSIONS: 1. Enlarged heterogenous spleen with free fluid within the abdomen and pelvis. Findings are suspicio us for acute ruptured spleen with possibly acute hemorrhage within the pelvis. Clinical correlation r ecommended. Report was called to the patient's nurse Be[place] by Dr. Vasquez by telephone at time of int erpretation 1151 hours 09/27/2020 A [place] level critical message alert has been initiated for Elizabeth Palacios MD via the [employer] Critical Results System on 09/27/2020 11:54 AM. This message alert has been sent to Elizabeth clement MD via the preferences provided by the clinician for the receipt of Radiology Critical Findings. Lu essage ID [id number].
[2020-09-27] MEDS ORDERED: LACTATED RINGERS 1,000 ML IV SCH (12:49)
[2020-09-27] MEDS ORDERED: LIDOCAINE 1% (10MG/ML) FOR IV START INTRADERMA PRN (12:49)
[2020-09-27] MEDS ORDERED: ONDANSETRON 4 MG/2 ML VIAL IVP ONE (12:49)
[2020-09-27] MEDS ORDERED: DEXAMETHASONE SOD PHOSPHATE 4 MG/ML 1 ML VIAL IV ONE (12:49)
[2020-09-27] MEDS ORDERED: MIDAZOLAM 2 MG/2 ML VIAL IV PRN (12:49)
[2020-09-27] MEDS ORDERED: HYDROmorphone 0.5 MG/0.5 ML SYRINGE IVP PRN (12:49)
--- NOTE | 2020-09-27 12:57 | P.PN ---
Subjective Progress Note Date: 09/27/20 CHIEF COMPLAINT: Ruptured spleen HISTORY OF PRESENT ILLNESS: The patient is a 85-year-old male initially admitted for ascending cholangitis. I was immediately notified by hospitalist about acute drop in hemoglobin prompting computed tomography scan. Hospitalist was immediately called by radiology for new findings of ruptured spleen with acute bleeding. Additional history obtained by hospitalist at bedside, nurse, and patient includes recent ERCP 2 days ago, 09/25/2020. Patient reports moderate epigastric pain following his procedure. Staff reports no recent history of falls. Prior imaging reviewed by me from 2020 computed tomography scan demonstrates normal sized spleen. Patient was scheduled to undergo cholecystectomy 09/29/2020. Significant other at bedside. Patient had dizziness yesterday. Patient now receiving 2 units of blood as ordered per hospitalist. Patient now being emergently prepared for surgical intervention. Patient has switched his CODE STATUS to FULL CODE ROS: Denies chest pain. Has new dizziness from yesterday. No fevers or chills. PHYSICAL EXAM: VITAL SIGNS: Reviewed CONSTITUTIONAL: Well developed and in no acute distress. EYES: Conjuctivae without sclera icterus. Extraocular movements grossly intact. HEAD, EARS, NOSE, THROAT: Moist buccal mucosa. Head is atraumatic, normocephalic. Hears conversational speech. No nasal drainage. NECK: No jugular venous distention. RESPIRATORY: Non-labored respirations and equal bilateral excursions. CARDIOVASCULAR: Regular rate. Regular rhythm. ABDOMEN: Tender epigastrium. No ecchymoses along abdomen. Well-healed midline incision from prior laparotomy. MUSCULOSKELETAL: No gross deformity of the lower extremities noted. No clubbing. No cyanosis. SKIN: Good skin turgor. Well perfused. NEUROLOGIC: Cranial nerves II through XII grossly intact. No focal or lateralizing signs. PSYCH: Appropriate affect. Alert and oriented to person, place and time. CLINICAL LABS: Reviewed. Hemoglobin dropped from 9.5-6.7 in 24 hours. Platelets declined from 120,000 to 82,000 since admission. Creatinine 1.9. STUDIES: CT of the abdomen and pelvis is without contrast and reviewed by me demonstrating moderate free fluid along the pelvis including along the spleen. Multiple large gallstones. Fluid about liver. Evidence of right inguinal hernia with fluid. This is my independent interpretation. REPORT: CT of the abdomen and pelvis report revealed consistent with acute hemorrhage from splenic rupture. ASSESSMENT: 1. Acute splenic rupture of unclear etiology 2. Acute blood loss anemia due to splenic rupture 3. History of ascending cholangitis 4. Symptomatic gallstone 5. Thrombocytopenia PLAN: 1. Additional blood has been ordered including platelets for thrombocytopenia 2. 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 3. Patient is high risk with recent ascending cholangitis, acute on chronic kidney disease, acute blood loss anemia 4. Operating room team coordinated for emergency intervention 5. Benefits and risks of surgery described including postoperative management intensive care unit CRITICAL CARE TIME: over 35 minutes Objective - Vital Signs Vital signs: Vital Signs Temp 97.3 F L 09/27/20 04:45 Pulse 69 09/27/20 04:45 Resp 20 09/27/20 04:45 BP 129/58 09/27/20 04:45 Pulse Ox 93 L 09/27/20 04:45 Intake & Output 09/26/20 09/27/20 09/27/20 18:59 06:59 18:59 Intake Total 660 100 Output Total 200 200 Balance 460 -200 100 Weight 72 kg Intake: Oral 660 100 Output: Urine 200 200 Other: Voiding Method Urinal Urinal # Voids 1 1 # Bowel Movements 1 - Labs CBC & Chem 7: 09/27/20 10:45 09/27/20 07:50 Labs: Abnormal Lab Results - Last 24 Hours (Table) 09/26/20 09/26/20 09/26/20 Range/Units 08:31 08:31 10:37 RBC 3.08 L (4.30-5.90) m/uL Hgb 9.5 L (13.0-17.5) gm/dL Hct 28.8 L (39.0-53.0) % RDW 16.9 H (11.5-15.5) % Plt Count 78 L (150-450) k/uL Neutrophils # 8.9 H (1.3-7.7) k/uL Lymphocytes # 0.6 L (1.0-4.8) k/uL Chloride 112 H (98-107) mmol/L Carbon Dioxide 20 L (22-30) mmol/L BUN 48 H (9-20) mg/dL Creatinine 1.90 H (0.66-1.25) mg/dL POC Glucose (mg/dL) 180 H (75-99) mg/dL Calcium 7.7 L (8.4-10.2) mg/dL AST 117 H (17-59) U/L ALT 174 H (4-49) U/L Total Protein 4.2 L (6.3-8.2) g/dL Albumin 2.2 L (3.5-5.0) g/dL 09/27/20 09/27/20 Range/Units 07:50 07:50 RBC 2.19 L (4.30-5.90) m/uL Hgb 6.7 L* D (13.0-17.5) gm/dL Hct 20.8 L (39.0-53.0) % RDW 17.0 H (11.5-15.5) % Plt Count 73 L (150-450) k/uL Neutrophils # (1.3-7.7) k/uL Lymphocytes # (1.0-4.8) k/uL Chloride 116 H (98-107) mmol/L Carbon Dioxide 17 L (22-30) mmol/L BUN 49 H (9-20) mg/dL Creatinine 1.79 H (0.66-1.25) mg/dL POC Glucose (mg/dL) (75-99) mg/dL Calcium 7.8 L (8.4-10.2) mg/dL AST (17-59) U/L ALT (4-49) U/L Total Protein (6.3-8.2) g/dL Albumin (3.5-5.0) g/dL Microbiology - Last 24 Hours (Table) 09/25/20 01:13 Urine Culture - Final Urine,Voided 09/25/20 05:12 Blood Culture Gram Stain - Preliminary Blood Blood Culture - Preliminary Escherichia coli Assessment and Plan (1) Acute blood loss anemia Current Visit: Yes Status: Acute Code(s): D62 - ACUTE POSTHEMORRHAGIC ANEMIA SNOMED Code(s): 214486815 (2) Ruptured spleen Current Visit: Yes Status: Acute Code(s): S36.09XA - OTHER INJURY OF SPLEEN, INITIAL ENCOUNTER SNOMED Code(s): 251676671 (3) Acute kidney injury Current Visit: Yes Status: Acute Code(s): N17.9 - ACUTE KIDNEY FAILURE, UNSPECIFIED SNOMED Code(s): 34177651 (4) Ascending cholangitis Current Visit: Yes Status: Acute Code(s): K83.09 - OTHER CHOLANGITIS SNOMED Code(s): 71896169 (5) Choledocholithiasis Current Visit: Yes Status: Acute Code(s): K80.50 - CALCULUS OF BILE DUCT W/O CHOLANGITIS OR CHOLECYST W/O OBST SNOMED Code(s): 099041408
--- NOTE | 2020-09-27 13:01 | P.EN ---
Recieved acute report from radiology. Patient CT that was ordered this morning on rounds resulted showing acute splenic rupture with hemorrhage in the pelvis. Patient was still waiting on pRBC. Called Dr. Gimenez who presented to beside. 1 additional unit of pRBC ordered, 2 units on hold, 1 unit PLTs. Patient will be transferred to the ICU post-op. Critical care notified. Transfer orders placed. Formal note to follow.
[2020-09-27] MEDS ORDERED: PROPOFOL 10 MG/ML 20 ML VIAL IV ONE (13:37)
[2020-09-27] MEDS ORDERED: ROCURONIUM 10 MG/ML (5 ML VIAL) IV ONE (13:37)
[2020-09-27] MEDS ORDERED: fentaNYL (PF) 50 MCG/ML 2 ML AMP ONE (13:37)
[2020-09-27] MEDS ORDERED: SODIUM CHLORIDE 0.9% 500 ML 500 ML IV ONE ×2 (13:37→15:30)
[2020-09-27] MEDS ORDERED: ETOMIDATE 2 MG/ML 10 ML VIAL ONE (13:37)
[2020-09-27] MEDS ORDERED: MIDAZOLAM 2 MG/2 ML VIAL ONE (13:37)
[2020-09-27] MEDS ORDERED: SUCCINYLCHOLINE CHLORIDE 100 MG/5 ML SYR IV ONE (13:37)
[2020-09-27] MEDS ORDERED: SODIUM CHLORIDE 0.9% 1,000 ML IV ONE ×4 (13:37→23:21)
[2020-09-27] MEDS ORDERED: LABETALOL 5 MG/ML VIAL MDV ONE (13:37)
--- NOTE | 2020-09-27 14:56 | P.PN ---
<Niles Dominguez - Last Filed: 09/27/20 14:56> Subjective Progress Note Date: 09/27/20 Hospital course: Patient is a very pleasant 85-year-old male with a past medical history of hyp ertension and peripheral arterial disease. He reports he was recently found to have elevated liver enzymes and has been being worked up as an outpatient basis. Patient had a liver ultrasound and MRCP which suggested cholestasis with multiple gallstones. Patient presented to the emergency department on 09/24/20 with a chief complaint of right upper quadrant abdominal pain 1 day associated with nausea, vomiting, and diarrhea. Patient admitted under our services for acute ascending cholangitis with transaminitis and HERMELINDO. Abdominal ultrasound completed revealing numerous gallstones. Patient was under leukocytosis with a WBC count of 17.1, anemia with hemoglobin of 10.8, and thrombocytopenia with platelet count of 104,000. Acute kidney injury with BUN of 38, creatinine 1.63, and GFR of 38 with baseline hemoglobin of 1.2. Patient was taken for ERCP yesterday afternoon with Dr. Huang, however it was reported that scope could not be advanced and patient will need to be transferred to [facility] to have ERCP completed. Call was made to transfer center and patient was accepted for transfer at [facility] by Dr. Wolfe. Patient is currently awaiting a bed assignment for transfer to be completed. Blood cultures positive for E. coli, patient provided coverage with continued use of IV antibiotics: Zosyn. Physical exam: Patient was seen in place evaluated at the bedside this morning. Patient was found to have nearly 3 g drop in hemoglobin from 9.5 down to 6.7. Upon assessment patient reports mild discomfort remains and left upper epigastric and right upper quadrant but denies any worsening of pain or changes in pain previously felt. A repeat CBC to be obtained to verify drop and a stat CT abdomen and pelvis without contrast ordered for further evaluation. Order placed for type and cross and for 1 unit of packed RBCs pending repeat hemoglobin results. Repeat hemoglobin resulted at 6.6. Patient continues to a wait bedside at [facility] for transfer. He denied having any headache, lightheadedness, dizziness, chest pain, palpitations, shortness of breath, nausea, vomiting, hematemesis, melena, hematochezia, or bruising. Received urgent page at 11:[address] abdomen and pelvis resulted revea ling splenic rupture. Immediately went to bedside to assess, patient was resting comfortably with family at bedside. Patient continued to deny having any increased pains or changes in his pain or discomfort. His respirations were even, regular, and unlabored on room air. Vital signs were assessed and stable with blood pressure 119/51 and heart rate of 68 (patient is on beta chino- atenolol). Full assessment completed no abdominal, flank, or retroperitoneal ecchymosis noted. Dr. Turcios, general surgeon notified and pt to be taken to OR emergently. RN notified blood bank of need for stat PRBCs. Unit received at bedside and infusing prior to patient being taken to the OR. Additional 2 units PRBCs ordered at this time along with 1 unit platelets. General: non toxic, no distress, appears at stated age, very thin build Derm: warm, dry Head: atraumatic, normocephalic, symmetric Eyes: EOMI, no lid lag, anicteric sclera Mouth: no lip lesion, mucus membranes moist Cardiovascular: S1S2 reg, no murmur, positive posterior tibial pulse bilateral, Lungs: CTA bilateral, no rhonchi, no rales , no accessory muscle use Abdominal: soft, tenderness to palpation in right upper quadrant, epigastric region and left upper quadrant, no guarding, no appreciable organomegaly Ext: no gross muscle atrophy, no edema, no contractures Neuro: CN II-XI grossly intact, no focal neuro deficits Psych: Alert, oriented, appropriate affect. Plan of care: Splenic rupture with acute blood loss anemia -Patient was found to have nearly 3 g drop in hemoglobin from 9.5 down to 6.7. -Order placed for type and cross and for 1 unit of packed RBCs pending repeat hemoglobin results. Repeat hemoglobin resulted at 6.6. -CT abdomen and pelvis resulted revealing splenic rupture. -Dr. Turcios, general surgeon notified and patient being taken to OR emergently. -Transfuse 1 unit PRBCs and an additional 2 units PRBCs and 1 unit platelets ordered at this time. -Patient taken to OR and ICU bed held at this time. Acute ascending cholangitis -Outpatient MRCP revealed choledocholithiasis with possible obstructive jaundice pattern. -Patient was taken for ERCP on 09/25/[address] Huang, however it was reported that scope could not be advanced and patient will need to be transferred to [facility] to have ERCP completed. -Call was made to transfer center and patient was accepted for transfer at [facility] by Dr. Wolfe. Patient is currently awaiting a bed assignment for transfer to be completed. -Blood cultures positive for E. coli. -Continue IV antibiotics with Zosyn -Gen. surgery following, in agreement with transfer to [facility] to have ERCP completed -Symptomatic care and pain management -Gentle hydration with IV fluids Acute kidney injury -Acute kidney injury with BUN of 48, creatinine 1.90, GFR of 32 with baseline creatinine of 1.2. -Continue gentle hydration with IV fluids -Continued close monitoring with repeat a.m. labs. -Hold nephrotoxic medications, such as lisinopril. Transaminitis, improving -Initial Total bili 2.9, AST 602, ALT 410, and alkaline phosphatase of 200. Improving with total bili of 1.1, AST 117, ALP 174, and alkaline phosphatase of 111. -Gentle hydration with IV fluids -Patient pending transfer to [facility] to have ERCP completed -Continue close monitoring with repeat a.m. labs. -Avoid hepatotoxic medications. Thrombocytopenia -Platelet count 73,000, likely secondary to impaired for function with recently acquired transaminitis. -Treatment of acute ascending cholangitis. -Continued close monitoring with repeat a.m. labs. Hypertension -Monitor vital signs and resume atenolol, however lisinopril held at this time secondary to HERMELINDO. CODE STATUS: DO NOT RESUSCITATE/DO NOT INTUBATE DVT prophylaxis: Heparin Discussed with: Patient and RN Anticipated discharge date: Patient pending transfer to [facility] for ERCP. Awaiting bed assignment. Accepting physician was Dr. Wolfe. A total of 45 minutes was spent on the care of this complex patient more than 50% of the time was spent in counseling and care coordination. Objective - Vital Signs Vital signs: Vital Signs Temp 97.2 F L 09/27/20 08:00 Pulse 61 09/27/20 08:00 Resp 18 09/27/20 08:00 BP 117/54 09/27/20 08:00 Pulse Ox 94 L 09/27/20 08:00 Intake & Output 09/26/20 09/27/20 09/27/20 18:59 06:59 18:59 Intake Total 660 100 Output Total 200 200 Balance 460 -200 100 Weight 72 kg Intake: Oral 660 100 Output: Urine 200 200 Other: Voiding Method Urinal Urinal # Voids 1 1 # Bowel Movements 1 - Labs CBC & Chem 7: 09/27/20 10:45 09/27/20 07:50 Labs: Abnormal Lab Results - Last 24 Hours (Table) 09/27/20 09/27/20 09/27/20 Range/Units 07:50 07:50 10:45 RBC 2.19 L (4.30-5.90) m/uL Hgb 6.7 L* D (13.0-17.5) gm/dL Hct 20.8 L (39.0-53.0) % RDW 17.0 H (11.5-15.5) % Plt Count 73 L (150-450) k/uL Lymphocytes # (1.0-4.8) k/uL Chloride 116 H (98-107) mmol/L Carbon Dioxide 17 L (22-30) mmol/L BUN 49 H (9-20) mg/dL Creatinine 1.79 H (0.66-1.25) mg/dL Calcium 7.8 L (8.4-10.2) mg/dL AST (17-59) U/L ALT (4-49) U/L Crossmatch See Detail 09/27/20 09/27/20 Range/Units 10:45 10:45 RBC 2.12 L (4.30-5.90) m/uL Hgb 6.6 L* (13.0-17.5) gm/dL Hct 20.5 L (39.0-53.0) % RDW 17.0 H (11.5-15.5) % Plt Count 82 L (150-450) k/uL Lymphocytes # 0.9 L (1.0-4.8) k/uL Chloride (98-107) mmol/L Carbon Dioxide (22-30) mmol/L BUN (9-20) mg/dL Creatinine (0.66-1.25) mg/dL Calcium (8.4-10.2) mg/dL AST 68 H (17-59) U/L ALT 116 H (4-49) U/L Crossmatch Microbiology - Last 24 Hours (Table) 09/25/20 05:12 Blood Culture Gram Stain - Final Blood Blood Culture - Final Escherichia coli 09/25/20 01:13 Urine Culture - Final Urine,Voided <Ana Laura Anderson - Last Filed: 09/27/20 19:25> Subjective Patient seen and examined independently. Patient was also seen by Niles Dominguez NP and case was discussed. I am in agreement with subjective, physical exam, assessment and plan as written above and amended below. Patient seen and examined at bedside with significant other present. He continues to have abdominal pain which she states is unchanged from yesterday. He has not had any bowel movements today or yesterday evening. He denies any chest pain, unusual shortness of breath, lightheadedness, dizziness, palpitations. He did get dizzy upon standing yesterday. We discussed that he has had a 3 g drop in hemoglobin. We will repeat CBC to verify drop in hemoglobin and check CT abdomen and pelvis to look for sources of bleeding. General: [Ill-appearing, no distress, appears at stated age Derm: warm, dry Head: atraumatic, normocephalic, symmetric Eyes: EOMI, no lid lag, anicteric sclera Mouth: no lip lesion, mucus membranes moist Cardiovascular: S1S2 reg, no murmur, positive posterior tibial pulse bilateral, Lungs: Decreased breath sounds bilateral, no rhonchi, no rales , no accessory muscle use Abdominal: soft, tender to palpation diffusely, no guarding, no appreciable organomegaly Ext: no gross muscle atrophy, no edema, no contractures Neuro: CN II-XI grossly intact, no focal neuro deficits Psych: Alert, oriented, appropriate affect Objective - Vital Signs Vital signs: Vital Signs Temp 97.5 F L 09/27/20 12:47 Pulse 52 L 09/27/20 19:00 Resp 14 09/27/20 19:00 BP 122/35 09/27/20 19:00 Pulse Ox 99 09/27/20 19:00 Intake & Output 09/27/20 09/27/20 09/28/20 06:59 18:59 06:59 Intake Total 2654.032 175 Output Total 200 2435 45 Balance -200 219.032 130 Weight 72 kg Intake: IV 1930 175 Dextrose 5% in Water 1, 100 000 ml @ 100 mls/hr IV . [id number] FAMILIA with Sodium Bicarb (1 Meq/ml) 150 ml Rx#:[id number] Sodium Chloride 0.9% 1, 130 75 000 ml @ 100 mls/hr IV . Q10H [facility] Rx#:[id number] Intake, IV Titration 4.032 Amount propofoL 1,000 mg In 4.032 Empty Bag 1 bag @ Titrate IV .Q0M [facility] Rx#: [id number] Oral 100 Blood Product 620 Rc As-1 Unit 310 [id number] Rc As-1 Unit 310 [id number] Output: Drainage 60 Left Abdomen 10 Right Abdomen 50 Urine 200 875 45 Estimated Blood Loss 1500 Other: Voiding Method Urinal Indwelling Catheter # Voids 1 ABP, PAP, CO, CI - Last Documented Arterial Blood Pressure 151/39 - Labs CBC & Chem 7: 09/27/20 18:00 09/27/20 18:00 Labs: Abnormal Lab Results - Last 24 Hours (Table) 09/27/20 09/27/20 09/27/20 Range/Units 07:50 07:50 10:45 WBC (3.8-10.6) k/uL RBC 2.19 L (4.30-5.90) m/uL Hgb 6.7 L* D (13.0-17.5) gm/dL Hct 20.8 L (39.0-53.0) % RDW 17.0 H (11.5-15.5) % Plt Count 73 L (150-450) k/uL Lymphocytes # (1.0-4.8) k/uL ABG pH (7.35-7.45) ABG pO2 (83-108) mmHg ABG HCO3 (21-25) mmol/L ABG Total CO2 (19-24) mmol/L ABG O2 Saturation (94-97) % Chloride 116 H (98-107) mmol/L Carbon Dioxide 17 L (22-30) mmol/L BUN 49 H (9-20) mg/dL Creatinine 1.79 H (0.66-1.25) mg/dL Glucose (74-99) mg/dL POC Glucose (mg/dL) (75-99) mg/dL Calcium 7.8 L (8.4-10.2) mg/dL Total Bilirubin (0.2-1.3) mg/dL AST (17-59) U/L ALT (4-49) U/L Total Protein (6.3-8.2) g/dL Albumin (3.5-5.0) g/dL Crossmatch See Detail 09/27/20 09/27/20 09/27/20 Range/Units 10:45 10:45 15:13 WBC 11.0 H (3.8-10.6) k/uL RBC 2.12 L 2.79 L (4.30-5.90) m/uL Hgb 6.6 L* 8.8 L D (13.0-17.5) gm/dL Hct 20.5 L 25.3 L (39.0-53.0) % RDW 17.0 H 16.7 H (11.5-15.5) % Plt Count 82 L 62 L (150-450) k/uL Lymphocytes # 0.9 L (1.0-4.8) k/uL ABG pH (7.35-7.45) ABG pO2 (83-108) mmHg ABG HCO3 (21-25) mmol/L ABG Total CO2 (19-24) mmol/L ABG O2 Saturation (94-97) % Chloride (98-107) mmol/L Carbon Dioxide (22-30) mmol/L BUN (9-20) mg/dL Creatinine (0.66-1.25) mg/dL Glucose (74-99) mg/dL POC Glucose (mg/dL) (75-99) mg/dL Calcium (8.4-10.2) mg/dL Total Bilirubin (0.2-1.3) mg/dL AST 68 H (17-59) U/L ALT 116 H (4-49) U/L Total Protein (6.3-8.2) g/dL Albumin (3.5-5.0) g/dL Crossmatch 09/27/20 09/27/20 09/27/20 Range/Units 16:31 16:51 18:00 WBC (3.8-10.6) k/uL RBC 2.76 L (4.30-5.90) m/uL Hgb 8.6 L (13.0-17.5) gm/dL Hct 24.9 L (39.0-53.0) % RDW 16.7 H (11.5-15.5) % Plt Count 59 L (150-450) k/uL Lymphocytes # (1.0-4.8) k/uL ABG pH 7.20 L (7.35-7.45) ABG pO2 324 H (83-108) mmHg ABG HCO3 15 L (21-25) mmol/L ABG Total CO2 17 L (19-24) mmol/L ABG O2 Saturation 99.5 H (94-97) % Chloride (98-107) mmol/L Carbon Dioxide (22-30) mmol/L BUN (9-20) mg/dL Creatinine (0.66-1.25) mg/dL Glucose (74-99) mg/dL POC Glucose (mg/dL) 118 H (75-99) mg/dL Calcium (8.4-10.2) mg/dL Total Bilirubin (0.2-1.3) mg/dL AST (17-59) U/L ALT (4-49) U/L Total Protein (6.3-8.2) g/dL Albumin (3.5-5.0) g/dL Crossmatch 09/27/20 Range/Units 18:00 WBC (3.8-10.6) k/uL RBC (4.30-5.90) m/uL Hgb (13.0-17.5) gm/dL Hct (39.0-53.0) % RDW (11.5-15.5) % Plt Count (150-450) k/uL Lymphocytes # (1.0-4.8) k/uL ABG pH (7.35-7.45) ABG pO2 (83-108) mmHg ABG HCO3 (21-25) mmol/L ABG Total CO2 (19-24) mmol/L ABG O2 Saturation (94-97) % Chloride 121 H (98-107) mmol/L Carbon Dioxide 19 L (22-30) mmol/L BUN 39 H (9-20) mg/dL Creatinine 1.32 H (0.66-1.25) mg/dL Glucose 135 H (74-99) mg/dL POC Glucose (mg/dL) (75-99) mg/dL Calcium 6.6 L (8.4-10.2) mg/dL Total Bilirubin 1.6 H (0.2-1.3) mg/dL AST (17-59) U/L ALT 86 H (4-49) U/L Total Protein 3.7 L (6.3-8.2) g/dL Albumin 1.8 L (3.5-5.0) g/dL Crossmatch Microbiology - Last 24 Hours (Table) 09/25/20 05:12 Blood Culture Gram Stain - Final Blood Blood Culture - Final Escherichia coli 09/25/20 01:13 Urine Culture - Final Urine,Voided
[2020-09-27 15:20] LABS: Anisocytosis Slight; HCT 25.3 % (39.0-53.0); MCH 31.5 pg (25.0-35.0); MCHC 34.7 g/dL (31.0-37.0); Mean Platelet Volume 11.3; RBC 2.79 m/uL (4.30-5.90); RDW 16.7 % (11.5-15.5)
[2020-09-27 15:27] LABS: HGB 8.8 gm/dL (13.0-17.5)
[2020-09-27 15:28] LABS: MCV 90.8 fL (80.0-100.0); Platelet Count 62 k/uL (150-450)
--- NOTE | 2020-09-27 15:52 | P.ANPRN ---
Procedure Note - Anesthesia - Invasive Line Left Arterial Line Time Out Performed: Yes (1340) Date of Procedure: 09/27/20 Time of Procedure: 13:41 Location of Patient: OR Preparation: Sterile Prep, Sterile Dressing Arterial Line Location: Radial Ultrasound Used: No Purpose - Visualization and Identification of Vasculature: No Needle Guage: 20g Image Stored and Saved: No Narrative: Central line placement per sterile protocol utilized. sterile protocol Right Central Line Time Out Performed: Yes (857) Date of Procedure: 09/27/20 Time of Procedure: 13:55 Location of Patient: OR Preparation: Sterile Prep, Sterile Dressing Arterial Line Location: Radial Ultrasound Used: No Purpose - Visualization and Identification of Vasculature: No Needle Guage: 18g angio Image Stored and Saved: No Narrative: Central line placement per sterile protocol utilized. local +CVP +jwire +uneventful dilation and introduction right IJ double lumen catheter
[2020-09-27 16:32] LABS: Glucose,Whole Blood 118 mg/dL (75-99)
--- NOTE | 2020-09-27 16:48 | P.OP ---
Date of Procedure: 09/27/20 Description of Procedure: Preoperative Diagnosis: 1. Acute blood loss anemia, 3 g blood loss 2. CT abnormality of splenic rupture 3. Ascending cholangitis due to gallstones and choledocholithiasis 4. Hypertensive heart disease 5. Gout 6. Hyperlipidemia 7. Peripheral vascular occlussive disease 8. Tobacco abuse disorder Postoperative Diagnosis: 1. Acute blood loss anemia, 3 g blood loss 2. CT abnormality of splenic rupture 3. Ascending cholangitis due to gallstones and choledocholithiasis 4. Hemoperitoneum 5. Intra-abdominal adhesions including small bowel adhesions 6. Hypertensive heart disease 7. Gout 8. Hyperlipidemia 9. Peripheral vascular occlussive disease 10. Tobacco abuse disorder Procedure(s) Performed: 1. Exploratory laparotomy with extensive lysis of adhesions over 30 minutes involving small bowel to abdominal wall and interloop adhesions 2. Open splenectomy with control of bleeding 3. Evacuation of hemoperitoneum over 1000 mL 4. Application of incisional wound VAC system 20 cm, PREVENA 4. Placement of Uriah-Grullon drain round #19 left splenic fossa and right at pelvis Anesthesia: SALEEM, local Surgeon: Faith Gimenez Estimated Blood Loss (ml): 1,500 Pathology: other (Spleen) Condition: critical Disposition: ICU Operative Findings: 1. Splenic rupture along the inferior pole medial hilum of the spleen 2. Severe intra-abdominal adhesions involving small bowel to omentum and abdominal wall lysed 3. Moderate hemoperitoneum pelvis over 1000 mL evacuated including along left upper quadrant and right upper quadrant 4. Due to emergency, life-threatening event, cholecystectomy deferred 5. Uriah-Grullon drain left upper abdomen, splenic fossa 6. Uriah-Grullon drain right lower abdomen, pelvis 7. Nasogastric tube positioned within stomach 8. Over 3 L normal saline used to completely irrigate the abdomen 9. Splenic fossa completely hemostatic prior to closure 10. Splenic hilum controlled using Covidien tri-stapler 60 mm vascular gabriel staple loads INDICATIONS: The patient is an 85-year-old male who initially presented to the hospital with jaundice and elevated LFTs and E. coli bacteremia consistent with ascending cholangitis. Patient's hemoglobin on admission was 13.2. Prior to ERCP, hemoglobin acutely dropped to 10.8 between 2-3 g/dL blood loss. Patient then had attempted ERCP which was unsuccessful for cannulation of the common bile duct. As a result, patient was being prepared for transfer to [facility] for repeat ERCP . Today, patient had acute blood loss anemia hemoglobin of 6.[address] of the abdomen and pelvis demonstrated acute splenic rupture with moderate blood in the abdomen. Emergent exploratory laparotomy for splenectomy was described including bleeding, infection, recovering in the critical care unit. Cholecystectomy was deferred due to emergent splenectomy required. Benefits and risks of surgery were reviewed with the patient and family. DESCRIPTION: The patient was transferred to the operating room. After general induction, a Ely catheter was placed. Additionally lines were placed by anesthesia including arterial line. The abdomen was prepped and draped in stand cristina sterile fashion. Prior to incision, a timeout protocol was confirmed with surgical team regarding patient's name including procedures to be performed. Preoperative medications were given. A #10 blade was used to enter along the epigastrium and extended down to the lower midline. Carefully the abdomen was entered using electro- Bovie cautery. Adhesions of the transverse mesocolon to abdominal wall were divided using Enseal including severe interloop adhesions of the mid jejunum lysed using Metzenbaum scissors. Moderate intra-abdominal adhesions were identified from his previous open laparotomy. Hemoperitoneum and blood staining along the omentum was identified emanating from the left upper quadrant. A [place] retractor system was placed. The left upper quadrant was packed above and around the spleen. Attention was brought to mobilization of the attachments of the spleen including the splenocolic ligament. The ligaments were mobilized using Enseal energy device. Once the inferior portion of the spleen was mobilized. Attention was brought back to the hilum for vascular control. Blood from the abdomen was aspirated including clots. Moderate clots were localized to the left upper quadrant and pelvis. Clots and blood was evacuated over 1000-mL from the pelvis and left upper quadrant. Digital palpation including control of the hilum of the spleen was performed after of the spleen was bluntly detached from its ligamental attachments. Next, using vascular gabriel staple loads of Covidien tri-stapler 60-mm size, two fires along the hilum was used to detach the spleen. The spleen was delivered from the abdomen. A grade 3 splenic laceration involving the inferior medial pole of the parenchyma was found. Next, control of bleeding was performed along the short gastric of the upper pole of the stomach using Enseal. The abdomen was irrigated and packings were removed to assess for any further bleeding. Total irrigation over 3 L normal saline was used until aspirant was clear. Along the splenic fossa, Surgicel fibrin powder was injected along the pocket. A round # 19 Uriah-Grullon drain was placed along the splenic space and delivered along the left upper abdomen. Nylon 2-0 was used to tack the tubing to the skin. The rest of the abdomen and all four qaudrants were irrigated with normal saline solution until clear including the pelvis for peritoneal lavage. A round # 19 Uriah-Grullon drain was placed along the pelvis and delivered along the right lower abdomen. The abdomen was closed using double stranded 0 PDS. The skin was cleansed using dilute hydrogen peroxide. An incisional length wound vac PREVENA dressing was placed along the midline incision. Optifoam dressing was placed around the ANDREA sites. The JPs were placed to bulb suction. An abdominal binder was placed. At the end of the procedure, needle, sponge, and instrument count had been verified correct by the surgical services assistant. The patient was sent to the intensive care unit in critical condition.
[2020-09-27 17:01] LABS: ABG Base Excess -12.8 mmol/L; ABG HCO3 15 mmol/L (21-25); ABG Oxygen Saturation 99.5 % (94-97); ABG PCO2 40 mmHg (35-45); ABG PO2 324 mmHg (83-108); ABG TCO2 17 mmol/L (19-24); Allen Test Performed? Yes
[2020-09-27] MEDS: HYDROmorphone 1 MG/ML 1 ML SYRINGE IVP PRN (17:08)
[2020-09-27] MEDS ORDERED: SODIUM BICARB 8.4% 50 ML SYR (1 MEQ/ML) IV STA (17:14)
[2020-09-27] MEDS ORDERED: WATER FOR INJECTION, STERILE 1,000 ML with SODIUM ACETATE 150 MEQ IV SCH ×2 (17:15)
--- NOTE | 2020-09-27 17:28 | XR ---
EXAMINATION TYPE: XR chest 1V DATE OF EXAM: 09/27/2020 COMPARISON: Today HISTORY: Short of breath TECHNIQUE: FINDINGS: Endotracheal tube is 5.5 cm from the mark. Nasogastric tube is in the stomach. There is e levation of the right diaphragm. There is slight blunting of the costophrenic angles. There is no hea rt failure. There is right jugular catheter with tip in the right atrium. There are chest leads. IMPRESSION: There is some mild pleural reaction and atelectasis at the lung bases unchanged. No heart failure. \
[2020-09-27] MEDS ORDERED: NOREPINEPHRIN 4 MG-0.9% NS PMX 4 MG/250 ML ML IV ONE (17:39)
[2020-09-27 18:23] LABS: Anisocytosis Slight; Basophils % (A) 0 %; Eosinophils # (A) 0.1 k/uL (0-0.7); Eosinophils % (A) 1 %; HCT 24.9 % (39.0-53.0); HGB 8.6 gm/dL (13.0-17.5); Lymphocytes % (A) 12 %; MCH 31.3 pg (25.0-35.0); MCHC 34.7 g/dL (31.0-37.0); MCV 90.4 fL (80.0-100.0); Mean Platelet Volume 10.8; Monocytes # (A) 0.3 k/uL (0-1.0); Monocytes % (A) 3 %; Neutrophils # (A) 7.2 k/uL (1.3-7.7); Neutrophils % (A) 83 %; RBC 2.76 m/uL (4.30-5.90); RDW 16.7 % (11.5-15.5); WBC 8.6 k/uL (3.8-10.6)
[2020-09-27] MEDS: DEXTROSE 5% IN WATER 1,000 ML with SODIUM BICARB (1 MEQ/ML) 150 ML IV SCH (18:23)
[2020-09-27 18:26] LABS: Platelet Count 59 k/uL (150-450)
[2020-09-27 18:32] LABS: INR 0.9 (<1.2); Prothrombin Time 9.8 sec (9.0-12.0)
[2020-09-27 18:35] LABS: Albumin 1.8 g/dL (3.5-5.0); Calcium 6.6 mg/dL (8.4-10.2); Magnesium 2.2 mg/dL (1.6-2.3); Phosphorus 3.6 mg/dL (2.5-4.5); Potassium 3.8 mmol/L (3.5-5.1); Total Bilirubin 1.6 mg/dL (0.2-1.3); Total Protein 3.7 g/dL (6.3-8.2)
[2020-09-27] MEDS: CHLORHEXIDINE GLUCONATE 15 ML CUP MUCOUS MEM SCH (20:00)
[2020-09-27] MEDS: NOREPINEPHRINE 4 MG in SODIUM CHLORIDE 0.9% 250 ML IV SCH (20:10)
[2020-09-27 23:00] LABS: ABG Base Excess -5.3 mmol/L; ABG HCO3 20 mmol/L (21-25); ABG Oxygen Saturation 99.7 % (94-97); ABG PCO2 33 mmHg (35-45); ABG PH 7.38 (7.35-7.45); ABG PO2 219 mmHg (83-108); ABG TCO2 21 mmol/L (19-24)
[2020-09-27 23:06] LABS: Allen Test Performed? no
[2020-09-28] MEDS: SODIUM CHLORIDE 0.9% 1,000 ML IV SCH ×2 (02:10→13:21)
[2020-09-28] MEDS: PIPERACILLIN-TAZOBACTAM 3.375 GM in SODIUM CHLORIDE 0.9% 100 ML IVPB SCH ×3 (03:49→20:48)
[2020-09-28 04:12] LABS: Anisocytosis Slight; Basophils % (A) 0 %; Eosinophils # (A) 0.2 k/uL (0-0.7); Eosinophils % (A) 1 %; HCT 20.7 % (39.0-53.0); HGB 7.4 gm/dL (13.0-17.5); Lymphocytes # (A) 0.7 k/uL (1.0-4.8); Lymphocytes % (A) 6 %; MCH 31.7 pg (25.0-35.0); MCHC 35.9 g/dL (31.0-37.0); MCV 88.3 fL (80.0-100.0); Mean Platelet Volume 11.7; Monocytes # (A) 0.6 k/uL (0-1.0); Monocytes % (A) 5 %; Neutrophils # (A) 9.9 k/uL (1.3-7.7); Neutrophils % (A) 87 %; Platelet Count 73 k/uL (150-450); Poikilocytosis Slight; RBC 2.34 m/uL (4.30-5.90); RDW 17.2 % (11.5-15.5); WBC 11.4 k/uL (3.8-10.6)
[2020-09-28 04:23] LABS: Albumin 1.8 g/dL (3.5-5.0); Phosphorus 3.2 mg/dL (2.5-4.5); Potassium 3.4 mmol/L (3.5-5.1); Total Bilirubin 0.9 mg/dL (0.2-1.3); Total Protein 3.6 g/dL (6.3-8.2)
[2020-09-28 04:34] LABS: Calcium 6.4 mg/dL (8.4-10.2)
[2020-09-28] MEDS ORDERED: Potassium Replacement Protocol 1 EACH MISC MISCELLANE PRN (04:36)
[2020-09-28] MEDS: POTASSIUM CHLORIDE 10 MEQ in WATER FOR INJECTION 1 100ML.BAG IVPB SCH ×4 (05:11→08:08)
[2020-09-28] MEDS: DEXTROSE 5% IN WATER 1,000 ML with SODIUM BICARB (1 MEQ/ML) 150 ML IV SCH (05:11)
[2020-09-28 05:40] LABS: ABG Base Excess -3.2 mmol/L; ABG HCO3 21 mmol/L (21-25); ABG Oxygen Saturation 97.5 % (94-97); ABG PCO2 30 mmHg (35-45); ABG PH 7.45 (7.35-7.45); ABG PO2 83 mmHg (83-108); ABG TCO2 22 mmol/L (19-24); Allen Test Performed? Yes
[2020-09-28] MEDS: CHLORHEXIDINE GLUCONATE 15 ML CUP MUCOUS MEM SCH ×2 (08:02→20:48)
[2020-09-28] MEDS: atenoloL 50 MG TAB PO SCH (08:19)
[2020-09-28] MEDS: FAMOTIDINE 20 MG/2 ML VIAL IV SCH ×2 (08:28→20:48)
--- NOTE | 2020-09-28 08:32 | P.PN ---
Subjective Progress Note Date: 09/27/20 Principal diagnosis: Choledocholithiasis, right upper quadrant abdominal pain, elevated liver enzymes Patient is seen lying in bed with his partner bedside. Tolerating diet. Is still having abdominal pain. He did have an acute fall in his hemoglobin today and computed tomography scan of the abdomen is pending. Objective - Vital Signs Vital signs: Vital Signs Temp 97.2 F L 09/27/20 08:00 Pulse 61 09/27/20 08:00 Resp 18 09/27/20 08:00 BP 117/54 09/27/20 08:00 Pulse Ox 94 L 09/27/20 08:00 Intake & Output 09/26/20 09/27/20 09/27/20 18:59 06:59 18:59 Intake Total 660 100 Output Total 200 200 Balance 460 -200 100 Weight 72 kg Intake: Oral 660 100 Output: Urine 200 200 Other: Voiding Method Urinal Urinal # Voids 1 1 # Bowel Movements 1 - Exam On physical examination, patient appears comfortable in no apparent distress. HEAD: Normocephalic, atraumatic. EYES: No scleral icterus. No conjunctival injection. MOUTH: No lesions, tongue midline. NECK: Trachea midline, no gross abnormalities. ABDOMEN: Soft, moderately tender with some guarding but no rigidity noted. Bowel sounds are positive. No organomegaly. EXTREMITIES: No pedal edema. SKIN: No rashes, no jaundice. NEUROLOGIC: Alert and oriented to person. No focal deficits. - Labs CBC & Chem 7: 09/28/20 04:00 09/28/20 04:00 Labs: Abnormal Lab Results - Last 24 Hours (Table) 09/26/20 09/27/20 09/27/20 Range/Units 08:31 07:50 07:50 RBC 2.19 L (4.30-5.90) m/uL Hgb 6.7 L* D (13.0-17.5) gm/dL Hct 20.8 L (39.0-53.0) % RDW 17.0 H (11.5-15.5) % Plt Count 78 L 73 L (150-450) k/uL Neutrophils # 8.9 H (1.3-7.7) k/uL Lymphocytes # 0.6 L (1.0-4.8) k/uL Chloride 116 H (98-107) mmol/L Carbon Dioxide 17 L (22-30) mmol/L BUN 49 H (9-20) mg/dL Creatinine 1.79 H (0.66-1.25) mg/dL Calcium 7.8 L (8.4-10.2) mg/dL Microbiology - Last 24 Hours (Table) 09/25/20 05:12 Blood Culture Gram Stain - Final Blood Blood Culture - Final Escherichia coli 09/25/20 01:13 Urine Culture - Final Urine,Voided Assessment and Plan (1) Choledocholithiasis Narrative/Plan: 85-year-old male presenting to the hospital with complaints of right upper quadrant abdominal pain. Previous imaging suggestive of choledocholithiasis on MRCP. Patient was taken for ERCP which was unsuccessful secondary to technical difficulty of the procedure due to patient's anatomy with the papilla unable to be cannulated. Currently on broad-spectrum antibiotic therapy the patient is scheduled to be transferred to tertiary center for evaluation by advanced endoscopy service. Current Visit: Yes Status: Acute Code(s): K80.50 - CALCULUS OF BILE DUCT W/O CHOLANGITIS OR CHOLECYST W/O OBST SNOMED Code(s): 150776137 (2) Elevated liver enzymes Current Visit: Yes Status: Acute Code(s): R74.8 - ABNORMAL LEVELS OF OTHER SERUM ENZYMES SNOMED Code(s): 750476502 (3) Right upper quadrant abdominal pain Current Visit: Yes Status: Acute Code(s): R10.11 - RIGHT UPPER QUADRANT PAIN SNOMED Code(s): 688350364 (4) Acute blood loss anemia Narrative/Plan: Patient had an acute fall in his hemoglobin today with no signs or symptoms of GI bleeding noted. Computed tomography scan of the abdomen and pelvis ordered by the primary team, await the findings. Current Visit: Yes Status: Acute Code(s): D62 - ACUTE POSTHEMORRHAGIC ANEMIA SNOMED Code(s): 764483418 Plan: Supportive care Clear liquid diet Continue to monitor CBC, BMP, LFTs Continue broad-spectrum antibiotic therapy Continue to monitor clinical course Computed tomography scan of the abdomen and pelvis ordered by the primary team given continued abdominal pain and fall in hemoglobin, await findings with further recommendations based on findings from computed tomography scan Recommend transfer to tertiary center for evaluation by the advanced endoscopy service for ERCP given findings of choledocholithiasis on MRCP when the patient is medically stable Thank you for allowing us to participate in the care of the patient
[2020-09-28] MEDS ORDERED: FUROSEMIDE 10 MG/ML 2 ML VIAL IV ONE (08:47)
[2020-09-28] MEDS: HYDROmorphone 0.5 MG/0.5 ML SYRINGE IVP PRN ×2 (08:55→11:04)
--- NOTE | 2020-09-28 10:23 | XR ---
EXAMINATION TYPE: XR chest 1V portable DATE OF EXAM: 09/28/2020 COMPARISON: 09/27/2020 INDICATION: Tube placement TECHNIQUE: Single frontal view of the chest is obtained. FINDINGS: The heart size is normal. The pulmonary vasculature is normal. Small left pleural effusion is developing. A small to moderate right pleural effusion is present. Endotracheal tube is present with the tip above the mark. Nasogastric tube transverses the thorax w ith tip within the proximal left upper quadrant of the abdomen. This could be advanced 6 cm. Right central venous catheter tip is in the distal superior vena cava region. IMPRESSION: 1. Small left moderate right pleural effusions. 2. Lines and catheters discussed above. 3. The is a nasogastric tube pulled back slightly. This could be advanced 6 cm.
--- NOTE | 2020-09-28 11:29 | P.CNPUL ---
History of Present Illness Consult date: 09/28/20 Requesting physician: Elizabeth Palacios Reason for consult: other (ICU management post splenectomy.) Chief complaint: Right upper quadrant pain History of present illness: This is an 85-year-old white male with 1 day history of right upper quadrant pain, presented initially to the hospital on 09/24/2020, patient was diagnosed as having choledocholithiasis and ascending cholangitis. Patient was seen by gastroenterology on consultation, and he underwent attempted ERCP, however the ERCP was difficult, and could not be diagnostic or therapeutic. This was done on 09/25, and according to the note by the dirt shoveler multiple attempts were made to advance the scope into the duodenum and visualizing the ampullary orifice was not successful. Hence ERCP was not performed. The gastroentero logist recommended referral to [facility] for ERCP. Surgery was consulted on the patient on 09/25/2020, and the patient was seen by Dr. Fried. He recommended laparoscopic cholecystectomy and this was supposed to be scheduled on 09/29/2020. In the meantime the patient was found to have E. coli bacteremia and he was on antibiotics all along. On 09/27/2020, patient was noted to have significant blood loss anemia, CT of the abdomen and pelvis showed splenic fracture. Hence Dr. Turcios saw the patient on consultation, and the patient underwent emergency exploratory laparotomy, extensive lysis of adhesions, open splenectomy with control of bleeding, evacuation of hemoperitoneum, application of a wound VAC system, placement of a ANDREA drain in the left splenic fossa and right at pelvis. Due to the emergency situation, open cholecystectomy was not performed, patient was transfused, required a total of 3 units of packed RBCs since his admission, and he also received 1 unit of platelets. Post surgery, patient was on mechanical ventilation, admitted to the ICU, and I was asked to see him on consultation. Patient is now on assist control rate of 14, volume of 450 FiO2 35% PEEP of 5 ABG showed a pO2 of 83 pCO2 of 30 pH of 7.45, patient was on bicarb drip which I discontinued. He is on propofol at 50 mcg/kg/m, norepinephrine at 0.01 mcg/kg/m, and I cut down his IV fluid since his chest x-ray is showing fluid overload and bilateral pleural effusions, and I would recommend gentle diuresis. Hemoglobin this morning is 7.4. His renal profile has improved in the last 24 hours. Creatinine was 1.3 to yesterday, and it is 1.16 today. A shunt didn't receive significant amount of fluids and blood products over the last 24 hours. During my evaluation, patient was fully sedated, and I have recommended holding the propofol, awakening the patient, give the patient at least a weaning trial, with pressure support and CPAP, and possibly proceed to extubation today. Review of Systems ROS unobtainable: due to endotracheal tube Past Medical History Past Medical History: Hyperlipidemia, Hypertension, Vascular Disorder Additional Past Medical History / Comment(s): GOUT, STATES PAST HX OF OCCLUDED CIRCULATION TO LEGS. LEFT LEG GRAFT History of Any Multi-Drug Resistant Organisms: None Reported Past Surgical History: Hernia Repair Additional Past Surgical History / Comment(s): AORTO-BIFEMORAL GRAFT LEFT SIDE Past Anesthesia/Blood Transfusion Reactions: No Reported Reaction Past Psychological History: No Psychological Hx Reported Past Alcohol Use History: Daily - Past Family History Brother(s) Family Medical History: Cancer Sister(s) Family Medical History: Cancer Medications and Allergies Home Medications Medication Instructions Recorded Confirmed Type Furosemide [Lasix] 40 mg PO DAILY 05/05/15 09/24/20 History allopurinoL [Zyloprim] 100 mg PO DAILY 05/05/15 09/24/20 History atenoloL [Tenormin] 50 mg PO DAILY 05/05/15 09/24/20 History lisinopriL 40 mg PO DAILY 05/05/15 09/24/20 History Atorvastatin Calcium [Lipitor] 80 mg PO DAILY 06/08/18 09/24/20 History Allergies Allergy/AdvReac Type Severity Reaction Status Date / Time No Known Allergies Allergy Verified 09/24/20 23:11 Physical Exam Vitals: Vital Signs Temp Pulse Resp BP Pulse Ox 09/28/20 11:00 98.4 F 64 23 175/61 99 09/28/20 10:45 59 L 21 136/49 96 09/28/20 10:30 59 L 16 117/44 96 09/28/20 10:15 56 L 18 127/41 95 09/28/20 10:00 97.5 F L 58 L 20 109/47 97 09/28/20 09:45 97.5 F L 59 L 20 105/46 96 09/28/20 09:30 59 L 15 95/45 96 09/28/20 09:00 63 14 136/47 95 09/28/20 08:30 62 16 124/48 97 09/28/20 08:00 98.4 F 65 14 112/47 99 09/28/20 07:30 63 17 123/47 97 09/28/20 07:00 64 20 121/44 97 09/28/20 06:30 63 22 123/46 99 09/28/20 06:00 64 17 117/45 99 09/28/20 05:30 65 20 96/45 98 09/28/20 05:00 63 17 112/45 98 09/28/20 04:30 62 22 126/48 98 09/28/20 04:00 98.1 F 62 15 112/45 99 09/28/20 03:30 63 16 110/44 98 09/28/20 03:00 64 19 124/48 99 09/28/20 02:30 63 22 126/51 99 09/28/20 02:00 98.3 F 63 25 H 112/47 100 09/28/20 01:30 63 26 H 118/46 98 09/28/20 01:00 62 22 108/46 99 09/28/20 00:30 64 16 114/44 99 09/28/20 00:14 65 21 117/47 99 09/28/20 00:00 98.0 F 64 18 128/43 99 09/27/20 23:30 64 28 H 115/40 99 09/27/20 23:10 98.0 F 63 16 129/48 99 09/27/20 23:00 98.0 F 61 25 H 106/50 100 09/27/20 22:30 57 L 19 128/66 100 09/27/20 22:25 96.4 F L 56 L 16 140/40 09/27/20 22:00 54 L 18 131/41 100 09/27/20 21:55 96.5 F L 57 L 16 137/40 100 09/27/20 21:45 96.4 F L 52 L 16 135/39 100 09/27/20 21:30 52 L 17 119/49 100 09/27/20 21:00 51 L 16 128/60 100 09/27/20 20:30 50 L 14 114/32 100 09/27/20 20:00 95.0 F L 51 L 15 126/43 100 09/27/20 19:30 51 L 14 141/55 98 09/27/20 19:10 95.0 F L 51 L 16 128/60 100 09/27/20 19:00 52 L 14 122/35 99 09/27/20 18:30 52 L 14 77/38 99 09/27/20 18:00 56 L 14 81/44 98 09/27/20 17:30 77 14 170/60 98 09/27/20 17:00 63 14 181/64 100 09/27/20 16:33 66 18 09/27/20 14:04 95.0 F L 53 L 16 132/39 100 09/27/20 12:47 97.5 F L 75 18 145/65 96 09/27/20 12:37 97.3 F L 68 18 119/51 97 Intake and Output 09/27/20 09/28/20 09/28/20 22:59 06:59 14:59 Intake Total 2299.620 5782.551 903.573 Output Total 2200 390 715 Balance -449.082 2992.551 188.573 Intake: IV 1430 2500 505 Dextrose 5% in Water 1, 400 600 150 000 ml @ 75 mls/hr IV . [id number] FAMILIA with Sodium Bicarb (1 Meq/ml) 150 ml Rx#:[id number] Piperacillin-Tazobactam 3 100 100 .375 gm In Sodium Chloride 0.9% 100 ml @ 25 mls/hr IVPB Q8H FAMILIA Rx#: [id number] Potassium Chloride 10 meq 200 200 In Water For Injection 1 100ml.bag @ 100 mls/hr IVPB Q1HR FAMILIA Rx#: [id number] Sodium Chloride 0.9% 1, 430 600 155 000 ml @ 20 mls/hr IV . Q24H FAMILIA Rx#:[id number] Sodium Chloride 0.9% 1, 1000 000 ml @ 999 mls/hr IV . Q1H1M ONE Rx#:[id number] Intake, IV Titration 12.627 201.551 88.573 Amount Norepinephrine 4 mg In 8.595 35.663 42.151 Sodium Chloride 0.9% 250 ml @ 0.05 MCG/KG/MIN 13. 716 mls/hr IV .[id number] FAMILIA Rx#:[id number] propofoL 1,000 mg In 4.032 165.888 46.422 Empty Bag 1 bag @ Titrate IV .Q0M [facility] Rx#: [id number] Blood Product 0 704 310 Platelet Pheresis Pas 0 352 Psoralen Unit [id number] Rc As-1 Unit 310 [id number] Output: Drainage 60 120 220 Left Abdomen 10 20 160 Right Abdomen 50 100 60 Urine 640 270 495 Estimated Blood Loss 1500 Other: Voiding Method Indwelling Catheter Indwelling Catheter Indwelling Catheter Weight 57.5 kg ABP, PAP, CO, CI - Last 8 Hours Arterial Blood Pressure 126/118 Arterial Blood Pressure 118/59 Arterial Blood Pressure 117/46 Arterial Blood Pressure 111/45 Physical Exam: Revealed a 85-year-old white male intubated, mechanically ventilated, sedated, in no distress. Head: Atraumatic, normocephalic. HEENT:[Neck is supple.] [No neck masses.] [No thyromegaly.] [No JVD.] Right IJ triple-lumen catheter is noted. Endotracheal tube and orogastric tubes are intact. Chest: [Symmetrical chest expansion, diminished breath sounds at the bases no crackles or rhonchi or wheezes. Cardiac Exam: [Normal S1 and S2, no S3 gallop, no murmur.] Abdomen: Postsurgical, abdominal binder is noted. Diminished bowel sounds. Extremities: [No clubbing, no edema, no cyanosis.] Good pulses bilaterally. Neurological Exam: Not assessed, patient is sedated on propofol. Psychiatric: Could not be assessed. Patient is fully sedated. Skin: No rashes. Results - Laboratory Findings CBC and BMP: 09/28/20 04:00 09/28/20 04:00 ABG ABG pH 7.45 (7.35-7.45) 09/28/20 05:39 ABG pCO2 30 mmHg (35-45) L 09/28/20 05:39 ABG pO2 83 mmHg (83-108) 09/28/20 05:39 ABG O2 Saturation 97.5 % (94-97) H 09/28/20 05:39 PT/INR, D-dimer PT 9.8 sec (9.0-12.0) 09/27/20 18:00 INR 0.9 (<1.2) 09/27/20 18:00 Abnormal lab findings: Abnormal Labs 09/24/20 09/24/20 09/24/20 20:21 20:21 20:21 WBC 17.9 H RBC Hgb Hct RDW 16.8 H Plt Count 129 L Neutrophils # Neutrophils # (Manual) 17.10 H Lymphocytes # Lymphocytes # (Manual) 0.72 L PT INR ABG pH ABG pCO2 ABG pO2 ABG HCO3 ABG Total CO2 ABG O2 Saturation Sodium Potassium Chloride 109 H Carbon Dioxide 19 L BUN 35 H Creatinine 1.68 H Glucose POC Glucose (mg/dL) Plasma Lactic Acid Nima 3.8 H* Calcium Ionized Calcium Maurisio Magnesium 1.5 L Total Bilirubin 2.9 H AST 602 H ALT 410 H Alkaline Phosphatase 200 H Total Protein 5.9 L Albumin 3.4 L Urine Protein Urine Blood Urine WBC Amorphous Sediment Urine Bacteria Hyaline Casts Crossmatch 09/25/20 09/25/20 09/25/20 01:13 05:12 05:12 WBC 17.1 H RBC 3.54 L Hgb 10.8 L Hct 32.8 L RDW 16.9 H Plt Count 104 L Neutrophils # 15.7 H Neutrophils # (Manual) Lymphocytes # 0.9 L Lymphocytes # (Manual) PT INR ABG pH ABG pCO2 ABG pO2 ABG HCO3 ABG Total CO2 ABG O2 Saturation Sodium 135 L Potassium Chloride 109 H Carbon Dioxide 20 L BUN 38 H Creatinine 1.63 H Glucose POC Glucose (mg/dL) Plasma Lactic Acid Nima Calcium 8.0 L Ionized Calcium Maurisio Magnesium Total Bilirubin 2.4 H AST 337 H ALT 298 H Alkaline Phosphatase 152 H Total Protein 4.7 L Albumin 2.5 L Urine Protein 1+ H Urine Blood Trace H Urine WBC 61 H Amorphous Sediment Rare H Urine Bacteria Rare H Hyaline Casts 3 H Crossmatch 09/25/20 09/25/20 09/25/20 05:12 08:59 11:01 WBC RBC Hgb Hct RDW Plt Count Neutrophils # Neutrophils # (Manual) Lymphocytes # Lymphocytes # (Manual) PT 12.1 H INR 1.2 H ABG pH ABG pCO2 ABG pO2 ABG HCO3 ABG Total CO2 ABG O2 Saturation Sodium Potassium Chloride Carbon Dioxide BUN Creatinine Glucose POC Glucose (mg/dL) Plasma Lactic Acid Nima Calcium Ionized Calcium Maurisio Magnesium 3.0 H 2.9 H Total Bilirubin AST ALT Alkaline Phosphatase Total Protein Albumin Urine Protein Urine Blood Urine WBC Amorphous Sediment Urine Bacteria Hyaline Casts Crossmatch 09/26/20 09/26/20 09/26/20 08:31 08:31 10:37 WBC RBC 3.08 L Hgb 9.5 L Hct 28.8 L RDW 16.9 H Plt Count 78 L Neutrophils # 8.9 H Neutrophils # (Manual) Lymphocytes # 0.6 L Lymphocytes # (Manual) PT INR ABG pH ABG pCO2 ABG pO2 ABG HCO3 ABG Total CO2 ABG O2 Saturation Sodium Potassium Chloride 112 H Carbon Dioxide 20 L BUN 48 H Creatinine 1.90 H Glucose POC Glucose (mg/dL) 180 H Plasma Lactic Acid Nima Calcium 7.7 L Ionized Calcium Maurisio Magnesium Total Bilirubin AST 117 H ALT 174 H Alkaline Phosphatase Total Protein 4.2 L Albumin 2.2 L Urine Protein Urine Blood Urine WBC Amorphous Sediment Urine Bacteria Hyaline Casts Crossmatch 09/27/20 09/27/20 09/27/20 07:50 07:50 10:45 WBC RBC 2.19 L Hgb 6.7 L* D Hct 20.8 L RDW 17.0 H Plt Count 73 L Neutrophils # Neutrophils # (Manual) Lymphocytes # Lymphocytes # (Manual) PT INR ABG pH ABG pCO2 ABG pO2 ABG HCO3 ABG Total CO2 ABG O2 Saturation Sodium Potassium Chloride 116 H Carbon Dioxide 17 L BUN 49 H Creatinine 1.79 H Glucose POC Glucose (mg/dL) Plasma Lactic Acid Nima Calcium 7.8 L Ionized Calcium Maurisio Magnesium Total Bilirubin AST ALT Alkaline Phosphatase Total Protein Albumin Urine Protein Urine Blood Urine WBC Amorphous Sediment Urine Bacteria Hyaline Casts Crossmatch See Detail 09/27/20 09/27/20 09/27/20 10:45 10:45 15:13 WBC 11.0 H RBC 2.12 L 2.79 L Hgb 6.6 L* 8.8 L D Hct 20.5 L 25.3 L RDW 17.0 H 16.7 H Plt Count 82 L 62 L Neutrophils # Neutrophils # (Manual) Lymphocytes # 0.9 L Lymphocytes # (Manual) PT INR ABG pH ABG pCO2 ABG pO2 ABG HCO3 ABG Total CO2 ABG O2 Saturation Sodium Potassium Chloride Carbon Dioxide BUN Creatinine Glucose POC Glucose (mg/dL) Plasma Lactic Acid Nima Calcium Ionized Calcium Maurisio Magnesium Total Bilirubin AST 68 H ALT 116 H Alkaline Phosphatase Total Protein Albumin Urine Protein Urine Blood Urine WBC Amorphous Sediment Urine Bacteria Hyaline Casts Crossmatch 09/27/20 09/27/20 09/27/20 16:31 16:51 18:00 WBC RBC 2.76 L Hgb 8.6 L Hct 24.9 L RDW 16.7 H Plt Count 59 L Neutrophils # Neutrophils # (Manual) Lymphocytes # Lymphocytes # (Manual) PT INR ABG pH 7.20 L ABG pCO2 ABG pO2 324 H ABG HCO3 15 L ABG Total CO2 17 L ABG O2 Saturation 99.5 H Sodium Potassium Chloride Carbon Dioxide BUN Creatinine Glucose POC Glucose (mg/dL) 118 H Plasma Lactic Acid Nima Calcium Ionized Calcium Maurisio Magnesium Total Bilirubin AST ALT Alkaline Phosphatase Total Protein Albumin Urine Protein Urine Blood Urine WBC Amorphous Sediment Urine Bacteria Hyaline Casts Crossmatch 09/27/20 09/27/20 09/28/20 18:00 22:57 04:00 WBC 11.4 H RBC 2.34 L Hgb 7.4 L Hct 20.7 L RDW 17.2 H Plt Count 73 L Neutrophils # 9.9 H Neutrophils # (Manual) Lymphocytes # 0.7 L Lymphocytes # (Manual) PT INR ABG pH ABG pCO2 33 L ABG pO2 219 H ABG HCO3 20 L ABG Total CO2 ABG O2 Saturation 99.7 H Sodium Potassium Chloride 121 H Carbon Dioxide 19 L BUN 39 H Creatinine 1.32 H Glucose 135 H POC Glucose (mg/dL) Plasma Lactic Acid Nima Calcium 6.6 L Ionized Calcium Maurisio Magnesium Total Bilirubin 1.6 H AST ALT 86 H Alkaline Phosphatase Total Protein 3.7 L Albumin 1.8 L Urine Protein Urine Blood Urine WBC Amorphous Sediment Urine Bacteria Hyaline Casts Crossmatch 09/28/20 09/28/20 09/28/20 04:00 04:50 05:39 WBC RBC Hgb Hct RDW Plt Count Neutrophils # Neutrophils # (Manual) Lymphocytes # Lymphocytes # (Manual) PT INR ABG pH ABG pCO2 30 L ABG pO2 ABG HCO3 ABG Total CO2 ABG O2 Saturation 97.5 H Sodium Potassium 3.4 L Chloride 119 H Carbon Dioxide 19 L BUN 35 H Creatinine Glucose 138 H POC Glucose (mg/dL) Plasma Lactic Acid Nima Calcium 6.4 L* Ionized Calcium Maurisio 4.2 L Magnesium Total Bilirubin AST ALT 67 H Alkaline Phosphatase Total Protein 3.6 L Albumin 1.8 L Urine Protein Urine Blood Urine WBC Amorphous Sediment Urine Bacteria Hyaline Casts Crossmatch - Diagnostic Findings Chest x-ray: image reviewed (Bilateral pleural effusions noted. Otherwise unremarkable.) Assessment and Plan Assessment: Impression: E. coli bacteremia secondary to acute ascending cholangitis Acute ascending cholangitis Status post attempted ERCP Possible iatrogenic splenic rupture, although splenic rupture post ERCP is rare, but possible. And has been clearly documented in the literature. Status post exploratory laparotomy, lysis of adhesions, open splenectomy, evacuation of hemoperitoneum application of wound VAC and ANDREA drain. Postoperative day #1. Acute blood loss anemia secondary to splenic rupture. A shunt received a total of 3 units of packed RBCs and 1 unit of platelets. Post surgical mechanical ventilation, expected considering the extensiveness of the surgery involved. And considering the overall clinical picture Acute kidney injury secondary to acute tubular necrosis related to splenic rupture and acute blood loss anemia. And possibly hypotension. Postoperative bilateral pleural effusions, most likely secondary to aggressive fluid management and no products, expected. This is mostly a picture of fluid overload. Recommendation: Continue ventilatory support for now. No changes in the vent settings. Patient will be given a trial of weaning today off propofol. Will likely wean and extubate the patient today if possible. Continue antibiotics and/Zosyn or his E. coli bacteremia and ascending cholangitis. Continue close monitoring of hemoglobin and transfuse for hemoglobin below 7. Continue GI prophylaxis. Patient is on Pepcid. Consider TPN on this patient if not extubated soon. Gentle diuresis, Lasix was ordered 20 mg IV push 1 today. Discontinue sodium bicarb drip. We'll continue to follow while in the ICU. Prognosis is relatively guarded. And the patient is critically ill. Critical care time is over 30 minutes. Time with Patient: Greater than 30
--- NOTE | 2020-09-28 14:41 | P.PN ---
Subjective Progress Note Date: 09/28/20 (delayed charting seen at 0830) Principal diagnosis: abdominal pain Patient is an 85-year-old male with a past medical history of hypertension and peripheral arterial disease. He had been found to have elevated liver enzymes and has been being worked up as an outpatient basis. Patient had a liver ultrasound and MRCP which suggested cholestasis with multiple gallstones. Patie sandi presented to the emergency department on 09/24/20 with a chief complaint of right upper quadrant abdominal pain 1 day associated with nausea, vomiting, and diarrhea. Patient admitted under our services for acute ascending cholangitis with transaminitis and HERMELINDO. Abdominal ultrasound completed revealing numerous gallstones. Patient was under leukocytosis with a WBC count of 17.1, anemia with hemoglobin of 10.8, and thrombocytopenia with platelet count of 104,000. Acute kidney injury with BUN of 38, creatinine 1.63, and GFR of 38 with baseline hemoglobin of 1.2. Patient was taken for ERCP on 09/[address] 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 Call was made to transfer center and patient was accepted for transfer at [facility] by Dr. Wolfe. Patient was awaiting a bed assignment for transfer to be completed. Blood cultures positive for E. coli, patient provided coverage with continued use of IV antibiotics: Zosyn. His hemoglobin acutely dropped on the morning of 09/27 from 9.5-6.7. This was confirmed on repeat blood draw. He was taken down for emergent CT abdomen and pelvis which showed splenic rupture with possible hemorrhage into the pelvis. Surgery was contacted and the patient emergently went to the OR. 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 2 ANDREA drains were placed. Patient return to the ICU intubated. Patient seen and examined at bedside. He remains on the ventilator and sedated. He was at minimal amount of levothyroid at the time of my evaluation. Per nursing no other acute events overnight. Minimal output from the ANDREA drains. General: Ill-appearing, moderate distress, appears younger than stated age Derm: warm, dry Head: atraumatic, normocephalic, symmetric Eyes: EOMI, no lid lag, anicteric sclera Mouth: no lip lesion, mucus membranes moist Cardiovascular: S1S2 reg with grade 2 systolic ejection murmur, positive posterior tibial pulse bilateral, Lungs: CTA bilateral, no rhonchi, no rales , no accessory muscle use, on vent Abdominal: soft, nondistended, no appreciable organomegaly, dressing over midline incision, [address] with minimal serous sanguinous output. Ext: no gross muscle atrophy, trace edema, no contractures Neuro: sedated on vent Psych: sedated on vent Splenic rupture with acute blood loss anemia, thrombycytopenia, hypovolemic shock, resolved - s/p 2 units of pRBC, one additional today, 1 unit plt has been given - surgery recs - will need f/u with ID for appropriate immunizations Acute post-op respiratory - management by ICU team Acute ascending cholangitis with E. coli bacteremia -Outpatient MRCP revealed choledocholithiasis with possible obstructive jaundice pattern. -Patient was taken for ERCP on 09/25/[address] Huang, however it was reported that scope could not be advanced and patient will need to be transferred to [facility] to have ERCP completed. -[facility] was updated about transfer for the patient. They're aware that he is in the ICU and intubated. He continued to agree to accept the patient. They have asked for updated records. Again there is no bed available at this time. -Await repeat blood cultures -Continue IV antibiotics with Zosyn Cardiac murmur noted -Undetermined if new or old but has not been recorded this hospital stay -Check echo in a.m. given bacteremia. Acute kidney injury, resolved - baseline creatinine of 1.2. -Hold nephrotoxic medications -Continue to hold lisinopril secondary to recent hypotension requiring norepinep hrine. Hypertension -With recent hypotension -Currently working on coming off norepinephrine -Hold atenolol and lisinopril -Follow blood pressures Objective - Vital Signs Vital signs: Vital Signs Temp 98.4 F 09/28/20 11:00 Pulse 61 09/28/20 14:00 Resp 18 09/28/20 14:00 BP 174/73 09/28/20 14:00 Pulse Ox 96 09/28/20 14:00 Intake & Output 09/27/20 09/28/20 09/28/20 18:59 06:59 18:59 Intake Total 2654.032 4214.146 1063.573 Output Total 2435 505 1245 Balance 354.822 8693.146 -181.427 Weight 57.5 kg Intake: IV 1930 3300 665 Dextrose 5% in Water 1, 1000 150 000 ml @ 75 mls/hr IV . [id number] FAMILIA with Sodium Bicarb (1 Meq/ml) 150 ml Rx#:[id number] Piperacillin-Tazobactam 3 200 100 .375 gm In Sodium Chloride 0.9% 100 ml @ 25 mls/hr IVPB Q8H [facility] Rx#: [id number] Potassium Chloride 10 meq 200 200 In Water For Injection 1 100ml.bag @ 100 mls/hr IVPB Q1HR [facility] Rx#: [id number] Sodium Chloride 0.9% 1, 130 900 215 000 ml @ 20 mls/hr IV . Q24H [facility] Rx#:[id number] Sodium Chloride 0.9% 1, 1000 000 ml @ 999 mls/hr IV . Q1H1M [facility] Rx#:[id number] Intake, IV Titration 4.032 210.146 88.573 Amount Norepinephrine 4 mg In 44.258 42.151 Sodium Chloride 0.9% 250 ml @ 0.05 MCG/KG/MIN 13. 716 mls/hr IV .[id number] [facility] Rx#:[id number] propofoL 1,000 mg In 4.032 165.888 46.422 Empty Bag 1 bag @ Titrate IV .Q0M [facility] Rx#: [id number] Oral 100 Blood Product 620 704 310 Platelet Pheresis Pas 352 Psoralen Unit [id number] As-1 Unit 310 [id number] As-1 Unit 310 [id number] As-1 Unit 310 [id number] Output: Gastric Drainage 75 Drainage 60 120 270 Left Abdomen 10 20 190 Right Abdomen 50 100 80 Urine 875 385 900 Estimated Blood Loss 1500 Other: Voiding Method Indwelling Catheter Indwelling Catheter Indwelling Catheter ABP, PAP, CO, CI - Last Documented Arterial Blood Pressure 126/118 - Labs CBC & Chem 7: 09/28/20 04:00 09/28/20 04:00 Labs: Abnormal Lab Results - Last 24 Hours (Table) 09/27/20 09/27/20 09/27/20 Range/Units 10:45 15:13 16:31 WBC 11.0 H (3.8-10.6) k/uL RBC 2.79 L (4.30-5.90) m/uL Hgb 8.8 L D (13.0-17.5) gm/dL Hct 25.3 L (39.0-53.0) % RDW 16.7 H (11.5-15.5) % Plt Count 62 L (150-450) k/uL Neutrophils # (1.3-7.7) k/uL Lymphocytes # (1.0-4.8) k/uL ABG pH (7.35-7.45) ABG pCO2 (35-45) mmHg ABG pO2 (83-108) mmHg ABG HCO3 (21-25) mmol/L ABG Total CO2 (19-24) mmol/L ABG O2 Saturation (94-97) % Potassium (3.5-5.1) mmol/L Chloride (98-107) mmol/L Carbon Dioxide (22-30) mmol/L BUN (9-20) mg/dL Creatinine (0.66-1.25) mg/dL Glucose (74-99) mg/dL POC Glucose (mg/dL) 118 H (75-99) mg/dL Calcium (8.4-10.2) mg/dL Ionized Calcium Maurisio (4.5-5.3) mg/dL Total Bilirubin (0.2-1.3) mg/dL ALT (4-49) U/L Total Protein (6.3-8.2) g/dL Albumin (3.5-5.0) g/dL Crossmatch See Detail 09/27/20 09/27/20 09/27/20 Range/Units 16:51 18:00 18:00 WBC (3.8-10.6) k/uL RBC 2.76 L (4.30-5.90) m/uL Hgb 8.6 L (13.0-17.5) gm/dL Hct 24.9 L (39.0-53.0) % RDW 16.7 H (11.5-15.5) % Plt Count 59 L (150-450) k/uL Neutrophils # (1.3-7.7) k/uL Lymphocytes # (1.0-4.8) k/uL ABG pH 7.20 L (7.35-7.45) ABG pCO2 (35-45) mmHg ABG pO2 324 H (83-108) mmHg ABG HCO3 15 L (21-25) mmol/L ABG Total CO2 17 L (19-24) mmol/L ABG O2 Saturation 99.5 H (94-97) % Potassium (3.5-5.1) mmol/L Chloride 121 H (98-107) mmol/L Carbon Dioxide 19 L (22-30) mmol/L BUN 39 H (9-20) mg/dL Creatinine 1.32 H (0.66-1.25) mg/dL Glucose 135 H (74-99) mg/dL POC Glucose (mg/dL) (75-99) mg/dL Calcium 6.6 L (8.4-10.2) mg/dL Ionized Calcium Maurisio (4.5-5.3) mg/dL Total Bilirubin 1.6 H (0.2-1.3) mg/dL ALT 86 H (4-49) U/L Total Protein 3.7 L (6.3-8.2) g/dL Albumin 1.8 L (3.5-5.0) g/dL Crossmatch 09/27/20 09/28/20 09/28/20 Range/Units 22:57 04:00 04:00 WBC 11.4 H (3.8-10.6) k/uL RBC 2.34 L (4.30-5.90) m/uL Hgb 7.4 L (13.0-17.5) gm/dL Hct 20.7 L (39.0-53.0) % RDW 17.2 H (11.5-15.5) % Plt Count 73 L (150-450) k/uL Neutrophils # 9.9 H (1.3-7.7) k/uL Lymphocytes # 0.7 L (1.0-4.8) k/uL ABG pH (7.35-7.45) ABG pCO2 33 L (35-45) mmHg ABG pO2 219 H (83-108) mmHg ABG HCO3 20 L (21-25) mmol/L ABG Total CO2 (19-24) mmol/L ABG O2 Saturation 99.7 H (94-97) % Potassium 3.4 L (3.5-5.1) mmol/L Chloride 119 H (98-107) mmol/L Carbon Dioxide 19 L (22-30) mmol/L BUN 35 H (9-20) mg/dL Creatinine (0.66-1.25) mg/dL Glucose 138 H (74-99) mg/dL POC Glucose (mg/dL) (75-99) mg/dL Calcium 6.4 L* (8.4-10.2) mg/dL Ionized Calcium Maurisio (4.5-5.3) mg/dL Total Bilirubin (0.2-1.3) mg/dL ALT 67 H (4-49) U/L Total Protein 3.6 L (6.3-8.2) g/dL Albumin 1.8 L (3.5-5.0) g/dL Crossmatch 09/28/20 09/28/20 Range/Units 04:50 05:39 WBC (3.8-10.6) k/uL RBC (4.30-5.90) m/uL Hgb (13.0-17.5) gm/dL Hct (39.0-53.0) % RDW (11.5-15.5) % Plt Count (150-450) k/uL Neutrophils # (1.3-7.7) k/uL Lymphocytes # (1.0-4.8) k/uL ABG pH (7.35-7.45) ABG pCO2 30 L (35-45) mmHg ABG pO2 (83-108) mmHg ABG HCO3 (21-25) mmol/L ABG Total CO2 (19-24) mmol/L ABG O2 Saturation 97.5 H (94-97) % Potassium (3.5-5.1) mmol/L Chloride (98-107) mmol/L Carbon Dioxide (22-30) mmol/L BUN (9-20) mg/dL Creatinine (0.66-1.25) mg/dL Glucose (74-99) mg/dL POC Glucose (mg/dL) (75-99) mg/dL Calcium (8.4-10.2) mg/dL Ionized Calcium Maurisio 4.2 L (4.5-5.3) mg/dL Total Bilirubin (0.2-1.3) mg/dL ALT (4-49) U/L Total Protein (6.3-8.2) g/dL Albumin (3.5-5.0) g/dL Crossmatch
[2020-09-28] MEDS: NOREPINEPHRINE 4 MG in SODIUM CHLORIDE 0.9% 250 ML IV SCH (17:48)
--- NOTE | 2020-09-28 17:49 | P.PN ---
Subjective Progress Note Date: 09/28/20 CHIEF COMPLAINT: Ruptured spleen HISTORY OF PRESENT ILLNESS: The patient is a 85-year-old male initially admitted for ascending cholangitis. He in transition for transfer to [facility] for definitive ERCP for common bile duct obstruction when he developed acute blood loss anemia and CT findings of ruptured spleen. He was emergently taken to the operating room with findings of moderate blood in the pelvis and around the spleen with resultant evacuation of hematoma and splenectomy for ruptured spleen. No further bleeding reported along splenic fossa. He is still intubated as he is lethargic. LFTs are resolving, he has been afebrile, blood cultures are no growth to date, and pancreatic enzymes are normal. He is still intubated with NG tube and sedated. ROS: No fevers or chills. Sedated. No new cardiac event. PHYSICAL EXAM: VITAL SIGNS: Reviewed CONSTITUTIONAL: Well developed and in no acute distress. EYES: Conjuctivae without sclera icterus. Extraocular movements grossly intact. HEAD, EARS, NOSE, THROAT: Moist buccal mucosa. Head is atraumatic, normocephalic. Hears conversational speech. No nasal drainage. NG bilious NECK: No jugular venous distention. RESPIRATORY: Non-labored respirations and equal bilateral excursions. CARDIOVASCULAR: 2+ radial pulses ABDOMEN: ANDREA serous left upper abdomen for splenic fossa. Pelvis sanguinous serous. MUSCULOSKELETAL: No gross deformity of the lower extremities noted. No clubbing. No cyanosis. SKIN: Good skin turgor. Well perfused. NEUROLOGIC: Cranial nerves II through XII grossly intact. No focal or lateralizing signs. PSYCH: Appropriate affect. Alert and oriented to person, place and time. CLINICAL LABS: Reviewed. Hemoglobin normalized at 7.6. Platelets declined from 120,000 to 82,000 to 59,000. Creatinine moderately improving to less than 1.2 from over 1.9. ASSESSMENT: 1. Acute splenic rupture of unclear etiology 2. Acute blood loss anemia due to splenic rupture 3. History of ascending cholangitis 4. Symptomatic gallstone 5. Thrombocytopenia PLAN: 1. I personally spoke to hospitalist as patient clinically has passed his CBD stones and LFTs are normal. No further need for transfer to [facility] for ERCP 2. Will need immunizations for post-splenectomy management in 10 to 14 days, otherwise, 10/07/20 to 10/12/20. May also benefit from COVID vaccination. 3. Continue wean off vent 4. Cholecystectomy deferred. 5. Continue critrical care support in ICU Objective - Vital Signs Vital signs: Vital Signs Temp 97.9 F 09/28/20 16:00 Pulse 59 L 09/28/20 17:00 Resp 19 09/28/20 17:00 BP 155/53 09/28/20 17:00 Pulse Ox 98 09/28/20 17:00 Intake & Output 09/27/20 09/28/20 09/28/20 18:59 06:59 18:59 Intake Total 2654.032 4214.146 1123.573 Output Total 2435 505 1355 Balance 734.576 7213.146 -231.427 Weight 57.5 kg Intake: IV 1930 3300 725 Dextrose 5% in Water 1, 1000 150 000 ml @ 75 mls/hr IV . [id number] [facility] with Sodium Bicarb (1 Meq/ml) 150 ml Rx#:[id number] Piperacillin-Tazobactam 3 200 100 .375 gm In Sodium Chloride 0.9% 100 ml @ 25 mls/hr IVPB Q8H [facility] Rx#: [id number] Potassium Chloride 10 meq 200 200 In Water For Injection 1 100ml.bag @ 100 mls/hr IVPB Q1HR [facility] Rx#: [id number] Sodium Chloride 0.9% 1, 130 900 275 000 ml @ 20 mls/hr IV . Q24H [facility] Rx#:[id number] Sodium Chloride 0.9% 1, 1000 000 ml @ 999 mls/hr IV . Q1H1M [facility] Rx#:[id number] Intake, IV Titration 4.032 210.146 88.573 Amount Norepinephrine 4 mg In 44.258 42.151 Sodium Chloride 0.9% 250 ml @ 0.05 MCG/KG/MIN 13. 716 mls/hr IV .[id number] [facility] Rx#:[id number] propofoL 1,000 mg In 4.032 165.888 46.422 Empty Bag 1 bag @ Titrate IV .Q0M [facility] Rx#: [id number] Oral 100 Blood Product 620 704 310 Platelet Pheresis Pas 352 Psoralen Unit [id number] Rc As-1 Unit 310 [id number] Rc As-1 Unit 310 [id number] Rc As-1 Unit 310 [id number] Output: Gastric Drainage 75 Drainage 60 120 270 Left Abdomen 10 20 190 Right Abdomen 50 100 80 Urine 334 487 7148 Estimated Blood Loss 1500 Other: Voiding Method Indwelling Catheter Indwelling Catheter Indwelling Catheter ABP, PAP, CO, CI - Last Documented Arterial Blood Pressure 126/118 - Labs CBC & Chem 7: 09/28/20 04:00 09/28/20 04:00 Labs: Abnormal Lab Results - Last 24 Hours (Table) 09/27/20 09/27/20 09/27/20 Range/Units 10:45 18:00 18:00 WBC (3.8-10.6) k/uL RBC 2.76 L (4.30-5.90) m/uL Hgb 8.6 L (13.0-17.5) gm/dL Hct 24.9 L (39.0-53.0) % RDW 16.7 H (11.5-15.5) % Plt Count 59 L (150-450) k/uL Neutrophils # (1.3-7.7) k/uL Lymphocytes # (1.0-4.8) k/uL ABG pCO2 (35-45) mmHg ABG pO2 (83-108) mmHg ABG HCO3 (21-25) mmol/L ABG O2 Saturation (94-97) % Potassium (3.5-5.1) mmol/L Chloride 121 H (98-107) mmol/L Carbon Dioxide 19 L (22-30) mmol/L BUN 39 H (9-20) mg/dL Creatinine 1.32 H (0.66-1.25) mg/dL Glucose 135 H (74-99) mg/dL Calcium 6.6 L (8.4-10.2) mg/dL Ionized Calcium Maurisio (4.5-5.3) mg/dL Total Bilirubin 1.6 H (0.2-1.3) mg/dL ALT 86 H (4-49) U/L Total Protein 3.7 L (6.3-8.2) g/dL Albumin 1.8 L (3.5-5.0) g/dL Crossmatch See Detail 09/27/20 09/28/20 09/28/20 Range/Units 22:57 04:00 04:00 WBC 11.4 H (3.8-10.6) k/uL RBC 2.34 L (4.30-5.90) m/uL Hgb 7.4 L (13.0-17.5) gm/dL Hct 20.7 L (39.0-53.0) % RDW 17.2 H (11.5-15.5) % Plt Count 73 L (150-450) k/uL Neutrophils # 9.9 H (1.3-7.7) k/uL Lymphocytes # 0.7 L (1.0-4.8) k/uL ABG pCO2 33 L (35-45) mmHg ABG pO2 219 H (83-108) mmHg ABG HCO3 20 L (21-25) mmol/L ABG O2 Saturation 99.7 H (94-97) % Potassium 3.4 L (3.5-5.1) mmol/L Chloride 119 H (98-107) mmol/L Carbon Dioxide 19 L (22-30) mmol/L BUN 35 H (9-20) mg/dL Creatinine (0.66-1.25) mg/dL Glucose 138 H (74-99) mg/dL Calcium 6.4 L* (8.4-10.2) mg/dL Ionized Calcium Maurisio (4.5-5.3) mg/dL Total Bilirubin (0.2-1.3) mg/dL ALT 67 H (4-49) U/L Total Protein 3.6 L (6.3-8.2) g/dL Albumin 1.8 L (3.5-5.0) g/dL Crossmatch 09/28/20 09/28/20 Range/Units 04:50 05:39 WBC (3.8-10.6) k/uL RBC (4.30-5.90) m/uL Hgb (13.0-17.5) gm/dL Hct (39.0-53.0) % RDW (11.5-15.5) % Plt Count (150-450) k/uL Neutrophils # (1.3-7.7) k/uL Lymphocytes # (1.0-4.8) k/uL ABG pCO2 30 L (35-45) mmHg ABG pO2 (83-108) mmHg ABG HCO3 (21-25) mmol/L ABG O2 Saturation 97.5 H (94-97) % Potassium (3.5-5.1) mmol/L Chloride (98-107) mmol/L Carbon Dioxide (22-30) mmol/L BUN (9-20) mg/dL Creatinine (0.66-1.25) mg/dL Glucose (74-99) mg/dL Calcium (8.4-10.2) mg/dL Ionized Calcium Maurisio 4.2 L (4.5-5.3) mg/dL Total Bilirubin (0.2-1.3) mg/dL ALT (4-49) U/L Total Protein (6.3-8.2) g/dL Albumin (3.5-5.0) g/dL Crossmatch Assessment and Plan (1) Acute blood loss anemia Current Visit: Yes Status: Acute Code(s): D62 - ACUTE POSTHEMORRHAGIC ANEMIA SNOMED Code(s): 682077468 (2) Ruptured spleen Current Visit: Yes Status: Acute Code(s): S36.09XA - OTHER INJURY OF SPLEEN, INITIAL ENCOUNTER SNOMED Code(s): 612119154 (3) Acute kidney injury Current Visit: Yes Status: Acute Code(s): N17.9 - ACUTE KIDNEY FAILURE, UNSPECIFIED SNOMED Code(s): 35576785 (4) Ascending cholangitis Current Visit: Yes Status: Acute Code(s): K83.09 - OTHER CHOLANGITIS SNOME D Code(s): 88500590 (5) Choledocholithiasis Current Visit: Yes Status: Acute Code(s): K80.50 - CALCULUS OF BILE DUCT W/O CHOLANGITIS OR CHOLECYST W/O OBST SNOMED Code(s): 780574572
[2020-09-29 00:33] LABS: Glucose,Whole Blood 107 mg/dL (75-99)
[2020-09-29] MEDS: HYDROmorphone 1 MG/ML 1 ML SYRINGE IVP PRN ×2 (04:08→10:40)
[2020-09-29 04:16] LABS: Albumin 1.8 g/dL (3.5-5.0); Potassium 3.3 mmol/L (3.5-5.1); Total Bilirubin 0.4 mg/dL (0.2-1.3); Total Protein 3.6 g/dL (6.3-8.2)
[2020-09-29 04:20] LABS: Anisocytosis Slight; Basophils # (A) 0.1 k/uL (0-0.2); Basophils % (A) 1 %; Eosinophils # (A) 0.7 k/uL (0-0.7); Eosinophils % (A) 5 %; HCT 25.1 % (39.0-53.0); HGB 8.3 gm/dL (13.0-17.5); Lymphocytes # (A) 1.4 k/uL (1.0-4.8); Lymphocytes % (A) 10 %; Mean Platelet Volume 10.7; Monocytes # (A) 0.6 k/uL (0-1.0); Monocytes % (A) 5 %; Neutrophils # (A) 11.1 k/uL (1.3-7.7); Neutrophils % (A) 79 %; Poikilocytosis Slight; RBC 2.86 m/uL (4.30-5.90); RDW 18.6 % (11.5-15.5); WBC 14.1 k/uL (3.8-10.6)
[2020-09-29 04:21] LABS: Platelet Count 79 k/uL (150-450)
[2020-09-29] MEDS: PIPERACILLIN-TAZOBACTAM 3.375 GM in SODIUM CHLORIDE 0.9% 100 ML IVPB SCH ×3 (04:45→19:57)
[2020-09-29] MEDS: POTASSIUM BICARBONATE/CIT AC 20 MEQ TABLET.EFF NG-TUBE SCH ×2 (04:45→05:52)
[2020-09-29 05:58] LABS: ABG Base Excess -3.7 mmol/L; ABG HCO3 21 mmol/L (21-25); ABG Oxygen Saturation 99.9 % (94-97); ABG PCO2 35 mmHg (35-45); ABG PO2 361 mmHg (83-108); ABG TCO2 22 mmol/L (19-24); Allen Test Performed? Yes
--- NOTE | 2020-09-29 06:49 | P.PN ---
Subjective Progress Note Date: 09/28/20 Principal diagnosis: Choledocholithiasis, right upper quadrant abdominal pain, elevated liver enzymes Patient is seen intubated and sedated in the intensive care unit. He is postop day #1 status post splenectomy for splenic laceration yesterday. Currently stable with no other acute events reported. Objective - Vital Signs Vital signs: Vital Signs Temp 98.4 F 09/28/20 08:00 Pulse 59 L 09/28/20 09:30 Resp 15 09/28/20 09:30 BP 95/45 09/28/20 09:30 Pulse Ox 96 09/28/20 09:30 Intake & Output 09/27/20 09/28/20 09/28/20 18:59 06:59 18:59 Intake Total 2654.032 4214.146 502.579 Output Total 2435 505 240 Balance 242.410 8718.146 262.579 Weight 57.5 kg Intake: IV 1930 3300 465 Dextrose 5% in Water 1, 1000 150 000 ml @ 75 mls/hr IV . [id number] [facility] with Sodium Bicarb (1 Meq/ml) 150 ml Rx#:[id number] Piperacillin-Tazobactam 3 200 .375 gm In Sodium Chloride 0.9% 100 ml @ 25 mls/hr IVPB Q8H [facility] Rx#: [id number] Potassium Chloride 10 meq 200 200 In Water For Injection 1 100ml.bag @ 100 mls/hr IVPB Q1HR [facility] Rx#: [id number] Sodium Chloride 0.9% 1, 130 900 115 000 ml @ 20 mls/hr IV . Q24H [facility] Rx#:[id number] Sodium Chloride 0.9% 1, 1000 000 ml @ 999 mls/hr IV . Q1H1M [facility] Rx#:[id number] Intake, IV Titration 4.032 210.146 37.579 Amount Norepinephrine 4 mg In 44.258 37.579 Sodium Chloride 0.9% 250 ml @ 0.05 MCG/KG/MIN 13. 716 mls/hr IV .[id number] [facility] Rx#:[id number] propofoL 1,000 mg In 4.032 165.888 Empty Bag 1 bag @ Titrate IV .Q0M [facility] Rx#: [id number] Oral 100 Blood Product 620 704 0 Platelet Pheresis Pas 352 Psoralen Unit [id number] As-1 Unit 310 [id number] As-1 Unit 310 [id number] As-1 Unit 0 [id number] Output: Drainage 60 120 120 Left Abdomen 10 20 100 Right Abdomen 50 100 20 Urine 875 385 120 Estimated Blood Loss 1500 Other: Voiding Method Indwelling Catheter Indwelling Catheter ABP, PAP, CO, CI - Last Documented Arterial Blood Pressure 126/118 - Exam On physical examination, patient appears comfortable in no apparent distress. HEAD: Normocephalic, atraumatic. EYES: No scleral icterus. No conjunctival injection. MOUTH: No lesions, tongue midline. NECK: Trachea midline, no gross abnormalities. ABDOMEN: Soft, midline wound clean/dry/intact with ANDREA drain in place. Bowel sounds are positive. No organomegaly. EXTREMITIES: No pedal edema. SKIN: No rashes, no jaundice. NEUROLOGIC: Intubated and sedated. No focal deficits. - Labs CBC & Chem 7: 09/29/20 03:30 09/29/20 03:30 Labs: Abnormal Lab Results - Last 24 Hours (Table) 09/27/20 09/27/20 09/27/20 Range/Units 10:45 10:45 10:45 WBC (3.8-10.6) k/uL RBC 2.12 L (4.30-5.90) m/uL Hgb 6.6 L* (13.0-17.5) gm/dL Hct 20.5 L (39.0-53.0) % RDW 17.0 H (11.5-15.5) % Plt Count 82 L (150-450) k/uL Neutrophils # (1.3-7.7) k/uL Lymphocytes # 0.9 L (1.0-4.8) k/uL ABG pH (7.35-7.45) ABG pCO2 (35-45) mmHg ABG pO2 (83-108) mmHg ABG HCO3 (21-25) mmol/L ABG Total CO2 (19-24) mmol/L ABG O2 Saturation (94-97) % Potassium (3.5-5.1) mmol/L Chloride (98-107) mmol/L Carbon Dioxide (22-30) mmol/L BUN (9-20) mg/dL Creatinine (0.66-1.25) mg/dL Glucose (74-99) mg/dL POC Glucose (mg/dL) (75-99) mg/dL Calcium (8.4-10.2) mg/dL Ionized Calcium Maurisio (4.5-5.3) mg/dL Total Bilirubin (0.2-1.3) mg/dL AST 68 H (17-59) U/L ALT 116 H (4-49) U/L Total Protein (6.3-8.2) g/dL Albumin (3.5-5.0) g/dL Crossmatch See Detail 09/27/20 09/27/20 09/27/20 Range/Units 15:13 16:31 16:51 WBC 11.0 H (3.8-10.6) k/uL RBC 2.79 L (4.30-5.90) m/uL Hgb 8.8 L D (13.0-17.5) gm/dL Hct 25.3 L (39.0-53.0) % RDW 16.7 H (11.5-15.5) % Plt Count 62 L (150-450) k/uL Neutrophils # (1.3-7.7) k/uL Lymphocytes # (1.0-4.8) k/uL ABG pH 7.20 L (7.35-7.45) ABG pCO2 (35-45) mmHg ABG pO2 324 H (83-108) mmHg ABG HCO3 15 L (21-25) mmol/L ABG Total CO2 17 L (19-24) mmol/L ABG O2 Saturation 99.5 H (94-97) % Potassium (3.5-5.1) mmol/L Chloride (98-107) mmol/L Carbon Dioxide (22-30) mmol/L BUN (9-20) mg/dL Creatinine (0.66-1.25) mg/dL Glucose (74-99) mg/dL POC Glucose (mg/dL) 118 H (75-99) mg/dL Calcium (8.4-10.2) mg/dL Ionized Calcium Maurisio (4.5-5.3) mg/dL Total Bilirubin (0.2-1.3) mg/dL AST (17-59) U/L ALT (4-49) U/L Total Protein (6.3-8.2) g/dL Albumin (3.5-5.0) g/dL Crossmatch 09/27/20 09/27/20 09/27/20 Range/Units 18:00 18:00 22:57 WBC (3.8-10.6) k/uL RBC 2.76 L (4.30-5.90) m/uL Hgb 8.6 L (13.0-17.5) gm/dL Hct 24.9 L (39.0-53.0) % RDW 16.7 H (11.5-15.5) % Plt Count 59 L (150-450) k/uL Neutrophils # (1.3-7.7) k/uL Lymphocytes # (1.0-4.8) k/uL ABG pH (7.35-7.45) ABG pCO2 33 L (35-45) mmHg ABG pO2 219 H (83-108) mmHg ABG HCO3 20 L (21-25) mmol/L ABG Total CO2 (19-24) mmol/L ABG O2 Saturation 99.7 H (94-97) % Potassium (3.5-5.1) mmol/L Chloride 121 H (98-107) mmol/L Carbon Dioxide 19 L (22-30) mmol/L BUN 39 H (9-20) mg/dL Creatinine 1.32 H (0.66-1.25) mg/dL Glucose 135 H (74-99) mg/dL POC Glucose (mg/dL) (75-99) mg/dL Calcium 6.6 L (8.4-10.2) mg/dL Ionized Calcium Maurisio (4.5-5.3) mg/dL Total Bilirubin 1.6 H (0.2-1.3) mg/dL AST (17-59) U/L ALT 86 H (4-49) U/L Total Protein 3.7 L (6.3-8.2) g/dL Albumin 1.8 L (3.5-5.0) g/dL Crossmatch 09/28/20 09/28/20 09/28/20 Range/Units 04:00 04:00 04:50 WBC 11.4 H (3.8-10.6) k/uL RBC 2.34 L (4.30-5.90) m/uL Hgb 7.4 L (13.0-17.5) gm/dL Hct 20.7 L (39.0-53.0) % RDW 17.2 H (11.5-15.5) % Plt Count 73 L (150-450) k/uL Neutrophils # 9.9 H (1.3-7.7) k/uL Lymphocytes # 0.7 L (1.0-4.8) k/uL ABG pH (7.35-7.45) ABG pCO2 (35-45) mmHg ABG pO2 (83-108) mmHg ABG HCO3 (21-25) mmol/L ABG Total CO2 (19-24) mmol/L ABG O2 Saturation (94-97) % Potassium 3.4 L (3.5-5.1) mmol/L Chloride 119 H (98-107) mmol/L Carbon Dioxide 19 L (22-30) mmol/L BUN 35 H (9-20) mg/dL Creatinine (0.66-1.25) mg/dL Glucose 138 H (74-99) mg/dL POC Glucose (mg/dL) (75-99) mg/dL Calcium 6.4 L* (8.4-10.2) mg/dL Ionized Calcium Maurisio 4.2 L (4.5-5.3) mg/dL Total Bilirubin (0.2-1.3) mg/dL AST (17-59) U/L ALT 67 H (4-49) U/L Total Protein 3.6 L (6.3-8.2) g/dL Albumin 1.8 L (3.5-5.0) g/dL Crossmatch 09/28/20 Range/Units 05:39 WBC (3.8-10.6) k/uL RBC (4.30-5.90) m/uL Hgb (13.0-17.5) gm/dL Hct (39.0-53.0) % RDW (11.5-15.5) % Plt Count (150-450) k/uL Neutrophils # (1.3-7.7) k/uL Lymphocytes # (1.0-4.8) k/uL ABG pH (7.35-7.45) ABG pCO2 30 L (35-45) mmHg ABG pO2 (83-108) mmHg ABG HCO3 (21-25) mmol/L ABG Total CO2 (19-24) mmol/L ABG O2 Saturation 97.5 H (94-97) % Potassium (3.5-5.1) mmol/L Chloride (98-107) mmol/L Carbon Dioxide (22-30) mmol/L BUN (9-20) mg/dL Creatinine (0.66-1.25) mg/dL Glucose (74-99) mg/dL POC Glucose (mg/dL) (75-99) mg/dL Calcium (8.4-10.2) mg/dL Ionized Calcium Maurisio (4.5-5.3) mg/dL Total Bilirubin (0.2-1.3) mg/dL AST (17-59) U/L ALT (4-49) U/L Total Protein (6.3-8.2) g/dL Albumin (3.5-5.0) g/dL Crossmatch Microbiology - Last 24 Hours (Table) 09/25/20 05:12 Blood Culture Gram Stain - Final Blood Blood Culture - Final Escherichia coli Assessment and Plan (1) Choledocholithiasis Narrative/Plan: 85-year-old male presenting to the hospital with complaints of right upper quadrant abdominal pain. Previous imaging suggestive of choledocholithiasis on MRCP. Patient was taken for ERCP which was unsuccessful secondary to technical difficulty of the procedure due to patient's anatomy with the papilla unable to be cannulated. Currently on broad-spectrum antibiotic therapy the patient is scheduled to be transferred to tertiary center for evaluation by advanced endoscopy service. 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 Current Visit: Yes Status: Acute Code(s): K80.50 - CALCULUS OF BILE DUCT W/O CHOLANGITIS OR CHOLECYST W/O OBST SNOMED Code(s): 083943318 (2) Elevated liver enzymes Current Visit: Yes Status: Acute Code(s): R74.8 - ABNORMAL LEVELS OF OTHER SERUM ENZYMES SNOMED Code(s): 835069544 (3) Right upper quadrant abdominal pain Current Visit: Yes Status: Acute Code(s): R10.11 - RIGHT UPPER QUADRANT PAIN SNOMED Code(s): 299517110 (4) Acute blood loss anemia Narrative/Plan: Patient had an acute fall in his hemoglobin today with no signs or symptoms of GI bleeding noted. Computed tomography scan of the abdomen and pelvis ordered by the primary team, await the findings. Current Visit: Yes Status: Acute Code(s): D62 - ACUTE POSTHEMORRHAGIC ANEMIA SNOMED Code(s): 545910685 (5) Splenic laceration Narrative/Plan: Computed tomography scan performed in evaluation of abdominal pain and fall in hemoglobin showing splenic laceration/rupture for which the patient was taken for splenectomy currently postop day #1 in the ICU. Current Visit: Yes Status: Acute Code(s): S36.039A - UNSPECIFIED LACERATION OF SPLEEN, INITIAL ENCOUNTER SNOMED Code(s): 056775930 Plan: Supportive care Nothing by mouth Continue to monitor CBC, BMP, LFTs Continue broad-spectrum antibiotic therapy Continue to monitor clinical course Continue postoperative care status post splenectomy Thank you for allowing us to participate in the care of the patient
--- NOTE | 2020-09-29 08:03 | XR ---
EXAMINATION TYPE: XR chest 1V portable DATE OF EXAM: 09/29/2020 COMPARISON: 09/28/2020 INDICATION: Tube placement TECHNIQUE: Single frontal view of the chest is obtained. FINDINGS: The heart size is normal. The pulmonary vasculature is normal. Right lower lobe. Trach is present. This may be some improvement from comparison. Left lower lobe inf iltrate and small left pleural effusion is present. Endotracheal tube is present with the tip above the mark. Nasogastric tube transverses the thorax a ppears stable in position right central venous catheter tip is within the proximal right atrium. IMPRESSION: 1. Bibasilar infiltrates and small left pleural effusion. Right lower lobe infiltrate may be improvin g. 2. Lines and catheters discussed above
[2020-09-29] MEDS ORDERED: IPRATROPIUM-ALBUTEROL 3 ML NEB INHALATION PRN (08:29)
[2020-09-29] MEDS: CHLORHEXIDINE GLUCONATE 15 ML CUP MUCOUS MEM SCH (09:21)
[2020-09-29] MEDS: FAMOTIDINE 20 MG/2 ML VIAL IV SCH (09:21)
--- NOTE | 2020-09-29 10:49 | P.PN ---
Subjective Progress Note Date: 09/29/20 Principal diagnosis: Respiratory failure. This is an 85-year-old white male with 1 day history of right upper quadrant pain, presented initially to the hospital on 09/24/2020, patient was diagnosed as having choledocholithiasis and ascending cholangitis. Patient was seen by [facility]ie roenterology on consultation, and he underwent attempted ERCP, however the ERCP was difficult, and could not be diagnostic or therapeutic. This was done on 09/25, and according to the note by the tester regulator multiple attempts were made to advance the scope into the duodenum and visualizing the ampullary orifice was not successful. Hence ERCP was not performed. The tester regulator recommended referral to [facility] for ERCP. Surgery was consulted on the patient on 09/25/2020, and the patient was seen by Dr. Fried. He recommended laparoscopic cholecystectomy and this was supposed to be scheduled on 09/29/2020. In the meantime the patient was found to have E. coli bacteremia and he was on antibiotics all along. On 09/27/2020, patient was noted to have significant blood loss anemia, CT of the abdomen and pelvis showed splenic fracture. Hence Dr. Turcios saw the patient on consultation, and the patient underwent emergency exploratory laparotomy, extensive lysis of adhesions, open splenectomy with control of bleeding, evacuation of hemoperitoneum, application of a wound VAC system, placement of a ANDREA drain in the left splenic fossa and right at pelvis. Due to the emergency situation, open cholecystectomy was not performed, patient was transfused, required a total of 3 units of packed RBCs since his admission, and he also received 1 unit of platelets. Post surgery, patient was on mechanical ventilation, admitted to the ICU, and I was asked to see him on consultation. Patient is now on assist control rate of 14, volume of 450 FiO2 35% PEEP of 5 ABG showed a pO2 of 83 pCO2 of 30 pH of 7.45, patient was on bicarb drip which I discontinued. He is on pr opofol at 50 mcg/kg/m, norepinephrine at 0.01 mcg/kg/m, and I cut down his IV fluid since his chest x-ray is showing fluid overload and bilateral pleural effusions, and I would recommend gentle diuresis. Hemoglobin this morning is 7.4. His renal profile has improved in the last 24 hours. Creatinine was 1.3 to yesterday, and it is 1.16 today. A shunt didn't receive significant amount of fluids and blood products over the last 24 hours. During my evaluation, patient was fully sedated, and I have recommended holding the propofol, awakening the patient, give the patient at least a weaning trial, with pressure support and CPAP, and possibly proceed to extubation today. Progress note dated 09/29/2020. This an 85-year-old male who was admitted on September 24, for abdominal pain, nausea, and vomiting. The patient was discovered to have gallstones, and underwent an ERCP. Apparently the ERCP was not successful. Subsequent to that, the patient developed a splenic rupture. On September 27, the patient underwent exploratory laparotomy, lysis of adhesions, and splenectomy. For some unclear reason, a gallbladder was not removed. The patient remains on the ventilator, having been ventilated for the surgery on the . Currently, the patient is on the volume assist control mode, rate 14, tidal volume 450, FiO2 35%, and PEEP of 5. Blood gases show a PaO2 that is 361, a PaCO2 which is 35, pH is 7.4. I doubt the accuracy of the PaO2 on the blood gas. In addition, the patient's on propofol at 40 mcg/kg/m, and saline at KVO. No tube feeds. We will do a daily interruption of sedation, and possible spontaneous breathing trial with hopes of extubation. White count 14.1, hemoglobin 8.3, hematocrit 25.1, and platelet count 79,000. Sodium 143, potassium 3.3, chlorides 117, CO2 22, anion gap 4, BUN 23, and creatinine 1.09. Chest x-ray shows some bibasilar infiltrates and/or atelectasis. Objective - Vital Signs Vital signs: Vital Signs Temp 98.1 F 09/29/20 04:00 Pulse 54 L 09/29/20 07:00 Resp 15 09/29/20 07:00 BP 122/44 09/29/20 07:00 Pulse Ox 98 09/29/20 07:00 Intake & Output 09/28/20 09/29/20 09/29/20 18:59 06:59 18:59 Intake Total 1186.526 568.685 95.201 Output Total 1415 655 40 Balance -228.474 -86.315 55.201 Weight 55.5 kg Intake: IV 745 440 20 Dextrose 5% in Water 1, 150 000 ml @ 75 mls/hr IV . [id number] [facility] with Sodium Bicarb (1 Meq/ml) 150 ml Rx#:[id number] Piperacillin-Tazobactam 3 100 200 .375 gm In Sodium Chloride 0.9% 100 ml @ 25 mls/hr IVPB Q8H [facility] Rx#: [id number] Potassium Chloride 10 meq 200 In Water For Injection 1 100ml.bag @ 100 mls/hr IVPB Q1HR [facility] Rx#: [id number] Sodium Chloride 0.9% 1, 295 240 20 000 ml @ 20 mls/hr IV . Q24H [facility] Rx#:[id number] Intake, IV Titration 131.526 128.685 75.201 Amount Norepinephrine 4 mg In 42.151 Sodium Chloride 0.9% 250 ml @ 0.05 MCG/KG/MIN 13. 716 mls/hr IV .[id number] [facility] Rx#:[id number] propofoL 1,000 mg In 89.375 128.685 75.201 Empty Bag 1 bag @ Titrate IV .Q0M [facility] Rx#: [id number] Blood Product 310 Rc As-1 Unit 310 [id number] Output: Gastric Drainage 75 110 Drainage 270 140 Left Abdomen 190 80 Right Abdomen 80 60 Urine 1070 405 40 Other: Voiding Method Indwelling Catheter Indwelling Catheter ABP, PAP, CO, CI - Last Documented Arterial Blood Pressure 126/118 - Exam No acute distress, currently sedated on propofol, with an orally placed endotracheal tube. HEENT examination is grossly unremarkable. Neck supple. Full range of motion. No adenopathy thyromegaly or neck vein distention. Cardiovascular examination reveals regular rhythm rate. S1-S2 normal. No S3 or S4. No discernible murmur noted. Heart sounds are distant. Heart rate about 60 bpm. Lungs reveal scattered bilateral rhonchi. No wheezes. No crackles. Breath sounds are equal bilaterally. Abdomen is soft without bowel sounds. No masses or tenderness. Extremities are intact. No cyanosis clubbing or edema. Skin is without rash or lesion. Neurologic examination cannot be adequately assessed as the patient is currently sedated. - Labs CBC & Chem 7: 09/29/20 03:30 09/29/20 03:30 Labs: Abnormal Lab Results - Last 24 Hours (Table) 09/27/20 09/29/2009/29/21 Range/Units 10:45 00:01 03:30 WBC 14.1 H (3.8-10.6) k/uL RBC 2.86 L (4.30-5.90) m/uL Hgb 8.3 L (13.0-17.5) gm/dL Hct 25.1 L (39.0-53.0) % RDW 18.6 H (11.5-15.5) % Plt Count 79 L (150-450) k/uL Neutrophils # 11.1 H (1.3-7.7) k/uL ABG pO2 (83-108) mmHg ABG O2 Saturation (94-97) % Potassium (3.5-5.1) mmol/L Chloride (98-107) mmol/L BUN (9-20) mg/dL POC Glucose (mg/dL) 107 H (75-99) mg/dL Calcium (8.4-10.2) mg/dL AST (17-59) U/L ALT (4-49) U/L Total Protein (6.3-8.2) g/dL Albumin (3.5-5.0) g/dL Crossmatch See Detail 09/29/20 09/29/20 Range/Units 03:30 05:52 WBC (3.8-10.6) k/uL RBC (4.30-5.90) m/uL Hgb (13.0-17.5) gm/dL Hct (39.0-53.0) % RDW (11.5-15.5) % Plt Count (150-450) k/uL Neutrophils # (1.3-7.7) k/uL ABG pO2 361 H (83-108) mmHg ABG O2 Saturation 99.9 H (94-97) % Potassium 3.3 L (3.5-5.1) mmol/L Chloride 117 H (98-107) mmol/L BUN 23 H (9-20) mg/dL POC Glucose (mg/dL) (75-99) mg/dL Calcium 7.0 L (8.4-10.2) mg/dL AST 61 H (17-59) U/L ALT 53 H (4-49) U/L Total Protein 3.6 L (6.3-8.2) g/dL Albumin 1.8 L (3.5-5.0) g/dL Crossmatch Microbiology - Last 24 Hours (Table) 09/28/20 21:38 Sputum Culture - Preliminary Sputum 09/27/20 18:00 Blood Culture - Preliminary Blood No Growth after 24 hours Assessment and Plan Assessment: Status post exploratory laparotomy, splenectomy, and lysis of adhesions, on September 27, for splenic rupture, following ERCP, postop day #2. Postoperative routine mechanical ventilation. Escherichia coli bacteremia, secondary to acute ascending cholangitis. Acute blood loss anemia, secondary to splenic rupture. Acute kidney injury, secondary to ATN. Postoperative bilateral pleural effusions, secondary to aggressive fluid management and administration of 3 units of PRBCs and 1 unit of platelets. History of hyperlipidemia. History of gout. History of hypertension. Plan: Plan dated 09/29/2020. The patient is currently still on the mechanical ventilator. We will do a daily interruption of sedation and a spontaneous breathing trial, and hope that the patient is ready for weaning and extubation. We will continue with antibiotics. The patient will continue on breathing treatments. The patient remains on Zosyn. Norepinephrine has been weaned off. The patient will continue on pain medication. Prognosis is guarded. Additional recommendations and suggestions to follow. We'll continue to follow make recommendations where appropriate. Time with Patient: Greater than 30
--- NOTE | 2020-09-29 11:15 | ECHOF ---
Referral Reason:murmur, ? valve lesions MEASUREMENTS -------- HEIGHT: 152.4 cm WEIGHT: 55.3 kg BP: 122/44 RVIDd: 3.0 cm (< 3.3) IVSd: 1.4 cm (0.6 - 1.1) LVIDd: 4.0 cm (3.9 - 5.3) LVPWd: 1.4 cm (0.6 - 1.1) IVSs: 1.5 cm LVIDs: 2.7 cm LVPWs: 1.4 cm LAESV Index (A-L): 31.48 ml/m Ao Diam: 3.2 cm (2.0 - 3.7) LA Diam: 4.9 cm (2.7 - 3.8) MV EXCURSION: 21.020 mm (> 18.000) MV EF SLOPE: 114 mm/s (70 - 150) EPSS: 1.1 cm MV E Yoni: 0.77 m/s MV DecT: 159 ms MV A Yoni: 0.94 m/s MV E/A Ratio: 0.82 AV maxP.65 mmHg AV meanP.17 mmHg RAP: 5.00 mmHg RVSP: 20.05 mmHg FINDINGS -------- Sinus rhythm. This was a technically adequate study. LV size, wall thickness and systolic function are normal, with an EF greater than 55%. The left demarcus tricular size is normal. The right ventricle is normal in size. LA is midly dilated 29-33ml/m2. The right atrial size is normal. There is mild to moderate aortic valve sclerosis. Peak/mean gradient across the Aortic Valve is 11. 65mmHg / 5.17mmHg. Mild mitral regurgitation is present. Mild tricuspid regurgitation present. Right ventricular systolic pressure is normal at < 35 mmHg. There is no pulmonic regurgitation present. There is no pericardial effusion. CONCLUSIONS -------- 1. LV size, wall thickness and systolic function are normal, with an EF greater than 55%. 2. The left ventricular size is normal. 3. The right ventricle is normal in size. 4. LA is midly dilated 29-33ml/m2. 5. The right atrial size is normal. 6. There is mild to moderate aortic valve sclerosis. 7. Peak/mean gradient across the Aortic Valve is 11.65mmHg / 5.17mmHg. 8. Mild mitral regurgitation is present. 9. Mild tricuspid regurgitation present. 10. There is no pericardial effusion. MICROBIOLOGY PROFESSOR: Myrna Tan RDCS
[2020-09-29] MEDS: NOREPINEPHRINE 4 MG in SODIUM CHLORIDE 0.9% 250 ML IV SCH (11:37)
[2020-09-29] MEDS: IPRATROPIUM-ALBUTEROL 3 ML NEB INHALATION SCH ×3 (11:54→19:35)
--- NOTE | 2020-09-29 13:37 | P.PN ---
Subjective Progress Note Date: 09/29/20 CHIEF COMPLAINT: Right upper quadrant abdominal pain HISTORY OF PRESENT ILLNESS: Patient admitted to the hospital for ascending cholangitis. He was in transition for transfer to [facility] for def initive ERCP for common bile duct obstruction when he developed acute blood loss anemia and CT findings of ruptured spleen. patient was taken to the OR and is status post splenectomy for ruptured spleen. Postop day #2. And is currently in the ICU intubated and on mechanical ventilation. Pulmonary service is working on trying to wean patient from the vent today. Patient is afebrile. WBC is 14.1 hemoglobin 8.3 platelets 79 sodium 143 potassium 3.3 creatinine 1.09 total bili 0.4 AST 61 ALT 53 PHYSICAL EXAM: VITAL SIGNS: Reviewed. GENERAL: Well-developed in no acute distress. HEENT: No sclera icterus. Extraocular movements grossly intact. Moist buccal mucosa. Head is atraumatic, normocephalic. ABDOMEN: Soft. Abdominal binder in place. 2 ANDREA drains with serosanguineous output. NEUROLOGIC: Patient is intubated and sedated ASSESSMENT: 1. Acute splenic rupture of unclear etiology. Status post Exploratory laparotomy with extensive lysis of adhesions, open splenectomy, evacuation of hemoperitoneum, Application of incisional wound VAC system and Placement of Uriah[place] drains 2. Acute blood loss anemia due to splenic rupture 3. Ascending cholangitis with bacteremia 4. Symptomatic gallstone 5. Thrombocytopenia PLAN: -Continue ICU management -Continue supportive care -Will need immunizations for post-splenectomy management in 10 to 14 days, otherwise, 10/07/20 to 10/12/20. May also benefit from COVID vaccination. -Infectious disease has been consulted -Continue wean off vent -Cholecystectomy deferred Physician Neurocritical Care Physician note has been reviewed by physician. Signing provider agrees with the documented findings, assessment, and plan of care. Objective - Vital Signs Vital signs: Vital Signs Temp 97.9 F 09/29/20 12:00 Pulse 74 09/29/20 13:00 Resp 22 09/29/20 13:00 BP 190/62 09/29/20 13:00 Pulse Ox 96 09/29/20 13:00 Intake & Output 09/28/20 09/29/20 09/29/20 18:59 06:59 18:59 Intake Total 1186.526 568.685 215.201 Output Total 1415 655 370 Balance -228.474 -86.315 -154.799 Weight 55.5 kg 55.5 kg Intake: IV 745 440 140 Dextrose 5% in Water 1, 150 000 ml @ 75 mls/hr IV . [id number] [facility] with Sodium Bicarb (1 Meq/ml) 150 ml Rx#:[id number] Piperacillin-Tazobactam 3 100 200 .375 gm In Sodium Chloride 0.9% 100 ml @ 25 mls/hr IVPB Q8H [facility] Rx#: [id number] Potassium Chloride 10 meq 200 In Water For Injection 1 100ml.bag @ 100 mls/hr IVPB Q1HR [facility] Rx#: [id number] Sodium Chloride 0.9% 1, 295 240 140 000 ml @ 20 mls/hr IV . Q24H [facility] Rx#:[id number] Intake, IV Titration 131.526 128.685 75.201 Amount Norepinephrine 4 mg In 42.151 Sodium Chloride 0.9% 250 ml @ 0.05 MCG/KG/MIN 13. 716 mls/hr IV .[id number] [facility] Rx#:[id number] propofoL 1,000 mg In 89.375 128.685 75.201 Empty Bag 1 bag @ Titrate IV .Q0M [facility] Rx#: [id number] Blood Product 310 Rc As-1 Unit 310 [id number] Output: Gastric Drainage 75 110 Drainage 270 140 80 Left Abdomen 190 80 40 Right Abdomen 80 60 40 Urine 1070 405 290 Other: Voiding Method Indwelling Catheter Indwelling Catheter Indwelling Catheter ABP, PAP, CO, CI - Last Documented Arterial Blood Pressure 126/118 - Labs CBC & Chem 7: 09/29/20 03:30 09/29/20 03:30 Labs: Abnormal Lab Results - Last 24 Hours (Table) 09/27/20 09/29/20 09/29/20 Range/Units 10:45 00:01 03:30 WBC 14.1 H (3.8-10.6) k/uL RBC 2.86 L (4.30-5.90) m/uL Hgb 8.3 L (13.0-17.5) gm/dL Hct 25.1 L (39.0-53.0) % RDW 18.6 H (11.5-15.5) % Plt Count 79 L (150-450) k/uL Neutrophils # 11.1 H (1.3-7.7) k/uL ABG pO2 (83-108) mmHg ABG O2 Saturation (94-97) % Potassium (3.5-5.1) mmol/L Chloride (98-107) mmol/L BUN (9-20) mg/dL POC Glucose (mg/dL) 107 H (75-99) mg/dL Calcium (8.4-10.2) mg/dL AST (17-59) U/L ALT (4-49) U/L Total Protein (6.3-8.2) g/dL Albumin (3.5-5.0) g/dL Crossmatch See Detail 09/29/20 09/29/20 Range/Units 03:30 05:52 WBC (3.8-10.6) k/uL RBC (4.30-5.90) m/uL Hgb (13.0-17.5) gm/dL Hct (39.0-53.0) % RDW (11.5-15.5) % Plt Count (150-450) k/uL Neutrophils # (1.3-7.7) k/uL ABG pO2 361 H (83-108) mmHg ABG O2 Saturation 99.9 H (94-97) % Potassium 3.3 L (3.5-5.1) mmol/L Chloride 117 H (98-107) mmol/L BUN 23 H (9-20) mg/dL POC Glucose (mg/dL) (75-99) mg/dL Calcium 7.0 L (8.4-10.2) mg/dL AST 61 H (17-59) U/L ALT 53 H (4-49) U/L Total Protein 3.6 L (6.3-8.2) g/dL Albumin 1.8 L (3.5-5.0) g/dL Crossmatch Microbiology - Last 24 Hours (Table) 09/28/20 09:19 Blood Culture - Preliminary Blood No Growth after 24 hours 09/28/20 21:38 Sputum Culture - Preliminary Sputum 09/27/20 18:00 Blood Culture - Preliminary Blood No Growth after 24 hours
[2020-09-29] MEDS: SODIUM CHLORIDE 0.9% 1,000 ML IV SCH (13:40)
--- NOTE | 2020-09-29 13:47 | P.PN ---
Subjective Progress Note Date: 09/29/20 Principal diagnosis: Choledocholithiasis, right upper quadrant abdominal pain, elevated liver enzymes Patient is seen intubated in the ICU. Postop day 2 from splenectomy. Doing well. Remains on process which went antibiotic. Sedation is being weaned. Objective - Vital Signs Vital signs: Vital Signs Temp 97.9 F 09/29/20 12:00 Pulse 74 09/29/20 13:00 Resp 22 09/29/20 13:00 BP 190/62 09/29/20 13:00 Pulse Ox 96 09/29/20 13:00 Intake & Output 09/28/20 09/29/20 09/29/20 18:59 06:59 18:59 Intake Total 1186.526 568.685 215.201 Output Total 1415 655 370 Balance -228.474 -86.315 -154.799 Weight 55.5 kg 55.5 kg Intake: IV 745 440 140 Dextrose 5% in Water 1, 150 000 ml @ 75 mls/hr IV . [id number] [facility] with Sodium Bicarb (1 Meq/ml) 150 ml Rx#:[id number] Piperacillin-Tazobactam 3 100 200 .375 gm In Sodium Chloride 0.9% 100 ml @ 25 mls/hr IVPB Q8H [facility] Rx#: [id number] Potassium Chloride 10 meq 200 In Water For Injection 1 100ml.bag @ 100 mls/hr IVPB Q1HR [facility] Rx#: [id number] Sodium Chloride 0.9% 1, 295 240 140 000 ml @ 20 mls/hr IV . Q24H [facility] Rx#:[id number] Intake, IV Titration 131.526 128.685 75.201 Amount Norepinephrine 4 mg In 42.151 Sodium Chloride 0.9% 250 ml @ 0.05 MCG/KG/MIN 13. 716 mls/hr IV .[id number] [facility] Rx#:[id number] propofoL 1,000 mg In 89.375 128.685 75.201 Empty Bag 1 bag @ Titrate IV .Q0M [facility] Rx#: [id number] Blood Product 310 Rc As-1 Unit 310 [id number] Output: Gastric Drainage 75 110 Drainage 270 140 80 Left Abdomen 190 80 40 Right Abdomen 80 60 40 Urine 1070 405 290 Other: Voiding Method Indwelling Catheter Indwelling Catheter Indwelling Catheter ABP, PAP, CO, CI - Last Documented Arterial Blood Pressure 126/118 - Exam On physical examination, patient appears comfortable in no apparent distress. HEAD: Normocephalic, atraumatic. EYES: No scleral icterus. No conjunctival injection. MOUTH: No lesions, tongue midline. NECK: Trachea midline, no gross abnormalities. ABDOMEN: Soft, midline wound clean/dry/intact with ANDREA drain in place. Bowel sounds are positive. No organomegaly. EXTREMITIES: No pedal edema. SKIN: No rashes, no jaundice. NEUROLOGIC: Intubated but awake. No focal deficits. - Labs CBC & Chem 7: 09/29/20 03:30 09/29/20 03:30 Labs: Abnormal Lab Results - Last 24 Hours (Table) 09/27/20 09/29/20 09/29/20 Range/Units 10:45 00:01 03:30 WBC 14.1 H (3.8-10.6) k/uL RBC 2.86 L (4.30-5.90) m/uL Hgb 8.3 L (13.0-17.5) gm/dL Hct 25.1 L (39.0-53.0) % RDW 18.6 H (11.5-15.5) % Plt Count 79 L (150-450) k/uL Neutrophils # 11.1 H (1.3-7.7) k/uL ABG pO2 (83-108) mmHg ABG O2 Saturation (94-97) % Potassium (3.5-5.1) mmol/L Chloride (98-107) mmol/L BUN (9-20) mg/dL POC Glucose (mg/dL) 107 H (75-99) mg/dL Calcium (8.4-10.2) mg/dL AST (17-59) U/L ALT (4-49) U/L Total Protein (6.3-8.2) g/dL Albumin (3.5-5.0) g/dL Crossmatch See Detail 09/29/20 09/29/20 Range/Units 03:30 05:52 WBC (3.8-10.6) k/uL RBC (4.30-5.90) m/uL Hgb (13.0-17.5) gm/dL Hct (39.0-53.0) % RDW (11.5-15.5) % Plt Count (150-450) k/uL Neutrophils # (1.3-7.7) k/uL ABG pO2 361 H (83-108) mmHg ABG O2 Saturation 99.9 H (94-97) % Potassium 3.3 L (3.5-5.1) mmol/L Chloride 117 H (98-107) mmol/L BUN 23 H (9-20) mg/dL POC Glucose (mg/dL) (75-99) mg/dL Calcium 7.0 L (8.4-10.2) mg/dL AST 61 H (17-59) U/L ALT 53 H (4-49) U/L Total Protein 3.6 L (6.3-8.2) g/dL Albumin 1.8 L (3.5-5.0) g/dL Crossmatch Microbiology - Last 24 Hours (Table) 09/28/20 09:19 Blood Culture - Preliminary Blood No Growth after 24 hours 09/28/20 21:38 Sputum Culture - Preliminary Sputum 09/27/20 18:00 Blood Culture - Preliminary Blood No Growth after 24 hours Assessment and Plan (1) Choledocholithiasis Narrative/Plan: 85-year-old male presenting to the hospital with complaints of right upper quadrant abdominal pain. Previous imaging suggestive of choledocholithiasis on MRCP. Patient was taken for ERCP which was unsuccessful secondary to technical difficulty of the procedure due to patient's anatomy with the papilla unable to be cannulated. Currently on broad-spectrum antibiotic therapy the patient is scheduled to be transferred to tertiary center for evaluation by advanced endoscopy service. 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 Current Visit: Yes Status: Acute Code(s): K80.50 - CALCULUS OF BILE DUCT W/O CHOLANGITIS OR CHOLECYST W/O OBST SNOMED Code(s): 064883406 (2) Elevated liver enzymes Current Visit: Yes Status: Acute Code(s): R74.8 - ABNORMAL LEVELS OF OTHER SERUM ENZYMES SNOMED Code(s): 238508076 (3) Right upper quadrant abdominal pain Current Visit: Yes Status: Acute Code(s): R10.11 - RIGHT UPPER QUADRANT PAIN SNOMED Code(s): 565192725 (4) Acute blood loss anemia Narrative/Plan: Patient had an acute fall in his hemoglobin today with no signs or symptoms of GI bleeding noted. Computed tomography scan of the abdomen and pelvis ordered by the primary team, await the findings. Current Visit: Yes Status: Acute Code(s): D62 - ACUTE POSTHEMORRHAGIC ANEMIA SNOMED Code(s): 727349451 (5) Ruptured spleen Narrative/Plan: Computed tomography scan performed in evaluation of abdominal pain and fall in hemoglobin showing splenic laceration/rupture for which the patient was taken for splenectomy currently postop day #2 in the ICU. Current Visit: Yes Status: Acute Code(s): S36.09XA - OTHER INJURY OF SPLEEN, INITIAL ENCOUNTER SNOMED Code(s): 673478651 Plan: Supportive care Nothing by mouth Continue to monitor CBC, BMP, LFTs Continue broad-spectrum antibiotic therapy Continue to monitor clinical course Continue postoperative care status post splenectomy Patient will likely require follow-up with tertiary center for ERCP, either as a transfer or in follow-up after discharge Thank you for allowing us to participate in the care of the patient
--- NOTE | 2020-09-29 14:33 | P.PN ---
Subjective Progress Note Date: 09/29/20 (delayed charting seen at 0930) Principal diagnosis: abdominal pain Patient is an 85-year-old male with a past medical history of hypertension and peripheral arterial disease. He had been found to have elevated liver enzymes and has been being worked up as an outpatient basis. Patient had a liver ultrasound and MRCP which suggested cholestasis with multiple gallstones. Patie sandi presented to the emergency department on 09/24/20 with a chief complaint of right upper quadrant abdominal pain 1 day associated with nausea, vomiting, and diarrhea. Patient admitted under our services for acute ascending cholangitis with transaminitis and HERMELINDO. Abdominal ultrasound completed revealing numerous gallstones. Patient was under leukocytosis with a WBC count of 17.1, anemia with hemoglobin of 10.8, and thrombocytopenia with platelet count of 104,000. Acute kidney injury with BUN of 38, creatinine 1.63, and GFR of 38 with baseline hemoglobin of 1.2. Patient was taken for ERCP on 09/[address] 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 Call was made to transfer center and patient was accepted for transfer at [facility] by Dr. Wolfe. Patient was awaiting a bed assignment for transfer to be completed. Blood cultures positive for E. coli, patient provided coverage with continued use of IV antibiotics: Zosyn. His hemoglobin acutely dropped on the morning of 09/27 from 9.5-6.7. This was confirmed on repeat blood draw. He was taken down for emergent CT abdomen and pelvis which showed splenic rupture with possible hemorrhage into the pelvis. Surgery was contacted and the patient emergently went to the OR. 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 2 ANDREA drains were placed. Patient return to the ICU intubated. Patient seen and examined at bedside. Sedated on vent. No acute concerns overnight. Off pressors. Hoping to wean today. General: Ill-appearing, no distress, appears younger than stated age Derm: warm, dry Head: atraumatic, normocephalic, symmetric Eyes: EOMI, no lid lag, anicteric sclera Mouth: no lip lesion, mucus membranes moist Cardiovascular: S1S2 reg with grade 2 systolic ejection murmur, positive posterior tibial pulse bilateral, Lungs: Decreasing bilateral, no rhonchi, no rales , no accessory muscle use, on vent Abdominal: soft, nondistended, no appreciable organomegaly, dressing over midline incision, [address] with minimal serous sanguinous output. Ext: no gross muscle atrophy, trace edema, no contractures Neuro: sedated on vent Psych: sedated on vent Splenic rupture with acute blood loss anemia, thrombocytopenia, hypovolemic shock, resolved - s/p 3 units of pRBC and 1 unit of plt - surgery recs - will need f/u with ID for appropriate immunizations Acute post-op respiratory - management by ICU team Acute ascending cholangitis with E. coli bacteremia -Outpatient MRCP revealed choledocholithiasis with possible obstructive jaundice pattern. -Patient was taken for ERCP on 09/25/[address] Huang, however it was reported that scope could not be advanced. D/W Dr. Yuen and will manage gallbladder as an outpatient at this time, no need for transfer. -Repeat blood cultures are negative to date -Continue IV antibiotics with Zosyn Acute kidney injury, resolved - baseline creatinine of 1.2. -Hold nephrotoxic medications -Continue to hold lisinopril secondary to recent hypotension requiring norepinephrine. Hypertension -With recent hypotension -resume atenolol -hold lisinopril -Follow blood pressures DVT prophylaxis: SCDs Discussed with: nursing Anticipated discharge: undetermined Anticipated discharge place: undetermined A total of 37 minutes was spent on the care of this complex patient more than 50% of the time was spent in counseling and care coordination. Objective - Vital Signs Vital signs: Vital Signs Temp 97.9 F 09/29/20 12:00 Pulse 74 09/29/20 13:00 Resp 22 09/29/20 13:00 BP 190/62 09/29/20 13:00 Pulse Ox 96 09/29/20 13:00 Intake & Output 09/28/20 09/29/20 09/29/20 18:59 06:59 18:59 Intake Total 1186.526 568.685 215.201 Output Total 1415 655 370 Balance -228.474 -86.315 -154.799 Weight 55.5 kg 55.5 kg Intake: IV 745 440 140 Dextrose 5% in Water 1, 150 000 ml @ 75 mls/hr IV . [id number] [facility] with Sodium Bicarb (1 Meq/ml) 150 ml Rx#:[id number] Piperacillin-Tazobactam 3 100 200 .375 gm In Sodium Chloride 0.9% 100 ml @ 25 mls/hr IVPB Q8H [facility] Rx#: [id number] Potassium Chloride 10 meq 200 In Water For Injection 1 100ml.bag @ 100 mls/hr IVPB Q1HR [facility] Rx#: [id number] Sodium Chloride 0.9% 1, 295 240 140 000 ml @ 20 mls/hr IV . Q24H [facility] Rx#:[id number] Intake, IV Titration 131.526 128.685 75.201 Amount Norepinephrine 4 mg In 42.151 Sodium Chloride 0.9% 250 ml @ 0.05 MCG/KG/MIN 13. 716 mls/hr IV .[id number] [facility] Rx#:[id number] propofoL 1,000 mg In 89.375 128.685 75.201 Empty Bag 1 bag @ Titrate IV .Q0M [facility] Rx#: [id number] Blood Product 310 Rc As-1 Unit 310 [id number] Output: Gastric Drainage 75 110 Drainage 270 140 80 Left Abdomen 190 80 40 Right Abdomen 80 60 40 Urine 1070 405 290 Other: Voiding Method Indwelling Catheter Indwelling Catheter Indwelling Catheter ABP, PAP, CO, CI - Last Documented Arterial Blood Pressure 126/118 - Labs CBC & Chem 7: 09/29/20 03:30 09/29/20 03:30 Labs: Abnormal Lab Results - Last 24 Hours (Table) 09/27/20 09/29/20 09/29/20 Range/Units 10:45 00:01 03:30 WBC 14.1 H (3.8-10.6) k/uL RBC 2.86 L (4.30-5.90) m/uL Hgb 8.3 L (13.0-17.5) gm/dL Hct 25.1 L (39.0-53.0) % RDW 18.6 H (11.5-15.5) % Plt Count 79 L (150-450) k/uL Neutrophils # 11.1 H (1.3-7.7) k/uL ABG pO2 (83-108) mmHg ABG O2 Saturation (94-97) % Potassium (3.5-5.1) mmol/L Chloride (98-107) mmol/L BUN (9-20) mg/dL POC Glucose (mg/dL) 107 H (75-99) mg/dL Calcium (8.4-10.2) mg/dL AST (17-59) U/L ALT (4-49) U/L Total Protein (6.3-8.2) g/dL Albumin (3.5-5.0) g/dL Crossmatch See Detail 09/29/20 09/29/20 Range/Units 03:30 05:52 WBC (3.8-10.6) k/uL RBC (4.30-5.90) m/uL Hgb (13.0-17.5) gm/dL Hct (39.0-53.0) % RDW (11.5-15.5) % Plt Count (150-450) k/uL Neutrophils # (1.3-7.7) k/uL ABG pO2 361 H (83-108) mmHg ABG O2 Saturation 99.9 H (94-97) % Potassium 3.3 L (3.5-5.1) mmol/L Chloride 117 H (98-107) mmol/L BUN 23 H (9-20) mg/dL POC Glucose (mg/dL) (75-99) mg/dL Calcium 7.0 L (8.4-10.2) mg/dL AST 61 H (17-59) U/L ALT 53 H (4-49) U/L Total Protein 3.6 L (6.3-8.2) g/dL Albumin 1.8 L (3.5-5.0) g/dL Crossmatch Microbiology - Last 24 Hours (Table) 09/28/20 09:19 Blood Culture - Preliminary Blood No Growth after 24 hours 09/28/20 21:38 Sputum Culture - Preliminary Sputum 09/27/20 18:00 Blood Culture - Preliminary Blood No Growth after 24 hours
[2020-09-29] MEDS: atenoloL 50 MG TAB PO SCH (14:43)
[2020-09-29] MEDS: HYDROmorphone 0.5 MG/0.5 ML SYRINGE IVP PRN (15:19)
--- NOTE | 2020-09-29 22:33 | P.CONS ---
History of Present Illness - Reason for Consult Consult date: 09/29/20 Cholangitis and bacteremia Requesting physician: Faith Gimenez - Chief Complaint Abdominal pain x few days - History of Present Illness Patient is 85-year-old male presenting to the hospital on 09/24/2020 for evaluation of generalized weakness dizziness and left abdominal pain along with vomiting symptoms started the night before presentation to the hospital patient complaining of when he stands up he becomes lightheaded and dizzy and he felt like he was going to fall with the symptom the patient has been evaluated by the ER physician and has been under care of the general surgery and GI team on the patient seem to have worsening of his symptoms for the patient did have a CT of abdominal pelvis completed which did shows enlarged heterogeneous spleen with free fluid within the abdominal pelvis findings suspicious for acute ruptured spleen with possible acute hemorrhage within the pelvis patient was taken to the OR evening of the the patient is status post exploratory laparotomy with extensive laceration open splenectomy with control of bleeding evacuation of hemoperitoneum application of incisional wound VAC and ANDREA drain there was also evidence of cholelithiasis on the CT patient did have a blood culture on the which came back positive with E. coli this is sensitive pathogen the patient is currently being treated with Zosyn infectious was consulted today with concern for cholangitis and antibiotic therapy patient did have elevated white count on admission that subsequently normalized however is trending up, the patient is hemodynamically stable not on pressor support patient remains to be intubated on the vent since his surgery no significant purulent secretion through the ED NG is up to suction and no significant pu rulent secretion through the ANDREA drain as per discussion with the patient nurse. Review of Systems Positive points has been mentioned in HPI complete review could not be obtained because of his underlying mental status Past Medical History Past Medical History: Hyperlipidemia, Hypertension, Vascular Disorder Additional Past Medical History / Comment(s): GOUT, STATES PAST HX OF OCCLUDED CIRCULATION TO LEGS. LEFT LEG GRAFT History of Any Multi-Drug Resistant Organisms: None Reported Past Surgical History: Hernia Repair Additional Past Surgical History / Comment(s): AORTO-BIFEMORAL GRAFT LEFT SIDE Past Anesthesia/Blood Transfusion Reactions: No Reported Reaction Past Psychological History: No Psychological Hx Reported Past Alcohol Use History: Daily - Past Family History Brother(s) Family Medical History: Cancer Sister(s) Family Medical History: Cancer Medications and Allergies Home Medications Medication Instructions Recorded Confirmed Type Furosemide [Lasix] 40 mg PO DAILY 05/05/15 09/24/20 History allopurinoL [Zyloprim] 100 mg PO DAILY 05/05/15 09/24/20 History atenoloL [Tenormin] 50 mg PO DAILY 05/05/15 09/24/20 History lisinopriL 40 mg PO DAILY 05/05/15 09/24/20 History Atorvastatin Calcium [Lipitor] 80 mg PO DAILY 06/08/18 09/24/20 History Allergies Allergy/AdvReac Type Severity Reaction Status Date / Time No Known Allergies Allergy Verified 09/24/20 23:11 Physical Exam Vitals: Vital Signs Temp Pulse Resp BP Pulse Ox 09/29/20 07:00 54 L 15 122/44 98 09/29/20 06:30 53 L 14 138/47 97 09/29/20 06:00 57 L 18 125/44 98 09/29/20 05:30 53 L 14 103/41 97 09/29/20 05:00 55 L 14 124/47 96 09/29/20 04:30 56 L 15 170/56 96 09/29/20 04:00 98.1 F 58 L 19 151/50 98 09/29/20 03:30 55 L 16 126/51 98 09/29/20 03:00 56 L 15 110/47 96 09/29/20 02:30 58 L 20 149/53 96 09/29/20 02:00 60 17 153/59 97 09/29/20 01:30 66 18 160/59 98 09/29/20 01:00 61 18 154/72 98 09/29/20 00:30 61 21 164/54 96 09/29/20 00:06 64 20 97 09/29/20 00:00 98.1 F 66 22 158/56 96 09/28/20 23:30 63 21 108/52 98 09/28/20 23:00 57 L 14 102/50 93 L 09/28/20 22:30 59 L 16 104/55 93 L 09/28/20 22:00 60 17 111/57 93 L 09/28/20 21:30 60 17 165/63 94 L 09/28/20 21:00 63 17 137/62 96 09/28/20 20:30 59 L 18 150/50 96 09/28/20 20:00 98.4 F 59 L 16 164/54 96 09/28/20 19:30 61 15 161/56 97 09/28/20 19:00 61 19 155/53 97 09/28/20 18:30 68 14 147/51 96 09/28/20 18:00 59 L 18 147/65 96 09/28/20 17:30 58 L 16 171/54 95 09/28/20 17:00 59 L 19 155/53 98 09/28/20 16:30 61 14 165/55 97 09/28/20 16:00 97.9 F 60 15 145/54 98 09/28/20 15:30 58 L 16 125/53 96 09/28/20 15:00 59 L 16 123/59 95 09/28/20 14:30 59 L 16 150/78 95 09/28/20 14:00 61 18 174/73 96 09/28/20 13:30 60 15 163/60 97 09/28/20 13:00 59 L 17 167/61 96 09/28/20 12:30 59 L 18 163/56 96 09/28/20 12:15 59 L 17 160/54 96 09/28/20 12:00 58 L 16 173/52 97 09/28/20 11:45 60 18 168/56 97 09/28/20 11:30 60 19 160/62 96 09/28/20 11:15 61 19 187/62 92 L 09/28/20 11:00 98.4 F 64 23 175/61 99 09/28/20 10:45 59 L 21 136/49 96 09/28/20 10:30 59 L 16 117/44 96 09/28/20 10:15 56 L 18 127/41 95 09/28/20 10:00 97.5 F L 58 L 20 109/47 97 09/28/20 09:45 97.5 F L 59 L 20 105/46 96 Intake and Output 09/28/20 09/29/20 09/29/20 22:59 06:59 14:59 Intake Total 302.953 388.685 20 Output Total 275 550 40 Balance 27.953 -161.315 -20 Intake: IV 260 260 20 Piperacillin-Tazobactam 3 100 100 .375 gm In Sodium Chloride 0.9% 100 ml @ 25 mls/hr IVPB Q8H [facility] Rx#: [id number] Sodium Chloride 0.9% 1, 160 160 20 000 ml @ 20 mls/hr IV . Q24H [facility] Rx#:[id number] Intake, IV Titration 42.953 128.685 Amount propofoL 1,000 mg In 42.953 128.685 Empty Bag 1 bag @ Titrate IV .Q0M [facility] Rx#: [id number] Output: Gastric Drainage 110 Drainage 140 Left Abdomen 80 Right Abdomen 60 Urine 275 300 40 Other: Voiding Method Indwelling Catheter Indwelling Catheter Weight 55.5 kg GENERAL DESCRIPTION: An elderly male intubated on the [facility]. No tachypnea or accessory muscle of respiration use. HEENT: Shows Pallor , no scleral icterus. Oral mucous membrane is dry. NECK: Trachea central, no thyromegaly. LUNGS: Unlabored breathing. Decreased breath sound at the base No wheeze or crackle. HEART: S1, S2, regular rate and rhythm. No loud murmur ABDOMEN: Soft, incision is covered with a wound VAC no surrounding redness or dr ainage EXTREMITIES: No edema of feet. SKIN: No rash, no masses palpable. NEUROLOGICAL: The patient is sedated on the [facility] Results CBC & Chem 7: 09/29/20 03:30 09/29/20 03:30 Labs: Abnormal Lab Results - Last 24 Hours (Table) 09/27/20 09/29/20 09/29/20 Range/Units 10:45 00:01 03:30 WBC 14.1 H (3.8-10.6) k/uL RBC 2.86 L (4.30-5.90) m/uL Hgb 8.3 L (13.0-17.5) gm/dL Hct 25.1 L (39.0-53.0) % RDW 18.6 H (11.5-15.5) % Plt Count 79 L (150-450) k/uL Neutrophils # 11.1 H (1.3-7.7) k/uL ABG pO2 (83-108) mmHg ABG O2 Saturation (94-97) % Potassium (3.5-5.1) mmol/L Chloride (98-107) mmol/L BUN (9-20) mg/dL POC Glucose (mg/dL) 107 H (75-99) mg/dL Calcium (8.4-10.2) mg/dL AST (17-59) U/L ALT (4-49) U/L Total Protein (6.3-8.2) g/dL Albumin (3.5-5.0) g/dL Crossmatch See Detail 09/29/20 09/29/20 Range/Units 03:30 05:52 WBC (3.8-10.6) k/uL RBC (4.30-5.90) m/uL Hgb (13.0-17.5) gm/dL Hct (39.0-53.0) % RDW (11.5-15.5) % Plt Count (150-450) k/uL Neutrophils # (1.3-7.7) k/uL ABG pO2 361 H (83-108) mmHg ABG O2 Saturation 99.9 H (94-97) % Potassium 3.3 L (3.5-5.1) mmol/L Chloride 117 H (98-107) mmol/L BUN 23 H (9-20) mg/dL POC Glucose (mg/dL) (75-99) mg/dL Calcium 7.0 L (8.4-10.2) mg/dL AST 61 H (17-59) U/L ALT 53 H (4-49) U/L Total Protein 3.6 L (6.3-8.2) g/dL Albumin 1.8 L (3.5-5.0) g/dL Crossmatch Microbiology - Last 24 Hours (Table) 09/27/20 18:00 Blood Culture - Preliminary Blood No Growth after 24 hours Assessment and Plan Assessment: 1-patient admitted to hospital with feeling dizzy lightheaded when he stands up in this patient who did have spontaneous rupture of the spleen status post laparotomy and splenectomy completed on 09/27/2020 with evacuation of hemoperitoneum no mention of any abscess. 2-patient had did have a E. coli bacteremia likely of the gut source less likely urinary source and question of cholangitis sensitive pathogen (1) Status post splenectomy Current Visit: Yes Status: Acute Code(s): Z90.81 - ACQUIRED ABSENCE OF SPLEEN SNOMED Code(s): 836443467 (2) E coli bacteremia Current Visit: Yes Status: Acute Code(s): R78.81 - BACTEREMIA; B96.20 - UNSP ESCHERICHIA COLI THE CAUSE OF DISEASES CLASSD ELSR SNOMED Code(s): 177222718411 (3) Ascending cholangitis Current Visit: Yes Status: Acute Code(s): K83.09 - OTHER CHOLANGITIS SNOMED Code(s): 12056443 Plan: 1-antibiotic will be changed to Unasyn 3 g every 6 hours as E. coli was a sensitive pathogen 2-patient will need for splenectomy vaccination for meningococcus Haemophilus influenza and pneumococcus that should be done on 10/11/2020, that will be day 14 of his surgery We will follow on clinical condition and cultures to further adjust medication if needed Thank you for this consultation we will follow the patient along with you Time with Patient: Greater than 30
[2020-09-29] MEDS: AMPICILLIN-SULBACTAM 3 GM in SODIUM CHLORIDE 0.9% 100 ML IVPB SCH (23:55)
[2020-09-30 04:15] LABS: Albumin 2.1 g/dL (3.5-5.0); Calcium 7.7 mg/dL (8.4-10.2); Potassium 3.5 mmol/L (3.5-5.1); Total Bilirubin 0.7 mg/dL (0.2-1.3); Total Protein 4.1 g/dL (6.3-8.2)
[2020-09-30 04:24] LABS: Anisocytosis Slight; HCT 26.5 % (39.0-53.0); HGB 8.5 gm/dL (13.0-17.5); Hypochromasia Slight; MCH 29.2 pg (25.0-35.0); MCHC 32.2 g/dL (31.0-37.0); MCV 90.5 fL (80.0-100.0); Mean Platelet Volume 10.2; Platelet Count 118 k/uL (150-450); RBC 2.93 m/uL (4.30-5.90); RDW 18.4 % (11.5-15.5); WBC 10.8 k/uL (3.8-10.6)
[2020-09-30] MEDS: POTASSIUM CHLORIDE 10 MEQ in WATER FOR INJECTION 1 100ML.BAG IVPB SCH ×4 (04:47→08:43)
[2020-09-30 05:24] LABS: Anisocytosis (M) Present; Basophils # (M) 0.11 k/uL (0-0.2); Eosinophils # (M) 0.54 k/uL (0-0.7); Monocytes # (M) 1.08 k/uL (0-1.0); Neutrophils # (M) 7.78 k/uL (1.3-7.7); Neutrophils % (M) 72 %; Nucleated Red Blood Cells 0 /100 WBC (0-0); Polychromasia Present; Total Cells Counted 100
[2020-09-30] MEDS: AMPICILLIN-SULBACTAM 3 GM in SODIUM CHLORIDE 0.9% 100 ML IVPB SCH ×3 (06:06→18:48)
--- NOTE | 2020-09-30 06:43 | P.PN ---
Subjective Progress Note Date: 09/30/20 Principal diagnosis: Respiratory failure. This is an 85-year-old white male with 1 day history of right upper quadrant pain, presented initially to the hospital on 09/24/2020, patient was diagnosed as having choledocholithiasis and ascending cholangitis. Patient was seen by brandie roenterology on consultation, and he underwent attempted ERCP, however the ERCP was difficult, and could not be diagnostic or therapeutic. This was done on 09/25, and according to the note by the financial services sales representative multiple attempts were made to advance the scope into the duodenum and visualizing the ampullary orifice was not successful. Hence ERCP was not performed. The financial services sales representative recommended referral to [facility] for ERCP. Surgery was consulted on the patient on 09/25/2020, and the patient was seen by Dr. Fried. He recommended laparoscopic cholecystectomy and this was supposed to be scheduled on 09/29/2020. In the meantime the patient was found to have E. coli bacteremia and he was on antibiotics all along. On 09/27/2020, patient was noted to have significant blood loss anemia, CT of the abdomen and pelvis showed splenic fracture. Hence Dr. Turcios saw the patient on consultation, and the patient underwent emergency exploratory laparotomy, extensive lysis of adhesions, open splenectomy with control of bleeding, evacuation of hemoperitoneum, application of a wound VAC system, placement of a ANDREA drain in the left splenic fossa and right at pelvis. Due to the emergency situation, open cholecystectomy was not performed, patient was transfused, required a total of 3 units of packed RBCs since his admission, and he also received 1 unit of platelets. Post surgery, patient was on mechanical ventilation, admitted to the ICU, and I was asked to see him on consultation. Patient is now on assist control rate of 14, volume of 450 FiO2 35% PEEP of 5 ABG showed a pO2 of 83 pCO2 of 30 pH of 7.45, patient was on bicarb drip which I discontinued. He is on pr opofol at 50 mcg/kg/m, norepinephrine at 0.01 mcg/kg/m, and I cut down his IV fluid since his chest x-ray is showing fluid overload and bilateral pleural effusions, and I would recommend gentle diuresis. Hemoglobin this morning is 7.4. His renal profile has improved in the last 24 hours. Creatinine was 1.3 to yesterday, and it is 1.16 today. A shunt didn't receive significant amount of fluids and blood products over the last 24 hours. During my evaluation, patient was fully sedated, and I have recommended holding the propofol, awakening the patient, give the patient at least a weaning trial, with pressure support and CPAP, and possibly proceed to extubation today. Progress note dated 09/29/2020. This an 85-year-old male who was admitted on September 24, for abdominal pain, nausea, and vomiting. The patient was discovered to have gallstones, and underwent an ERCP. Apparently the ERCP was not successful. Subsequent to that, the patient developed a splenic rupture. On September 27, the patient underwent exploratory laparotomy, lysis of adhesions, and splenectomy. For some unclear reason, a gallbladder was not removed. The patient remains on the ventilator, having been ventilated for the surgery on the . Currently, the patient is on the volume assist control mode, rate 14, tidal volume 450, FiO2 35%, and PEEP of 5. Blood gases show a PaO2 that is 361, a PaCO2 which is 35, pH is 7.4. I doubt the accuracy of the PaO2 on the blood gas. In addition, the patient's on propofol at 40 mcg/kg/m, and saline at KVO. No tube feeds. We will do a daily interruption of sedation, and possible spontaneous breathing trial with hopes of extubation. White count 14.1, hemoglobin 8.3, hematocrit 25.1, and platelet count 79,000. Sodium 143, potassium 3.3, chlorides 117, CO2 22, anion gap 4, BUN 23, and creatinine 1.09. Chest x-ray shows some bibasilar infiltrates and/or atelectasis. Progress note dated 09/30/2020. 85-year-old male who was admitted on September 24 for abdominal pain, nausea, and vomiting. The patient was discovered to have gallstones, and underwent an ERCP. Apparently the ERCP was unsuccessful. Subsequent to that, the patient developed a splenic rupture. On September 27, the patient underwent exploratory laparotomy, lysis of adhesions, and splenectomy. Gallbladder was not removed at that time. Yesterday, the patient was mechanically ventilated. Yesterday, the patient had an excellent weaning trial, after a daily interruption of sedation. The patient was extubated yesterday. He's currently on 3 L nasal cannula. And saline at KVO. He is doing reasonably well. His chest x-ray does show some bibasilar infiltrates or atelectasis and small effusions. He will need to deep breathe, cough, clear secretions, and using incentive spirometer. White count 10.8, hemoglobin 8.5, hematocrit 26.5, and platelet count 118,000. Sodium 146, potassium 3.5, chlorides 120, CO2 21, anion gap 5, BUN 15, creatinine 0.95. Objective - Vital Signs Vital signs: Vital Signs Temp 98.1 F 09/30/20 04:00 Pulse 75 09/30/20 06:00 Resp 22 09/30/20 06:00 BP 143/61 09/30/20 06:00 Pulse Ox 96 09/30/20 06:00 Intake & Output 09/29/20 09/29/20 09/30/20 06:59 18:59 06:59 Intake Total 568.685 315.201 740 Output Total 655 635 680 Balance -86.315 -319.799 60 Weight 55.5 kg 55.5 kg 55.6 kg Intake: IV 440 240 440 Piperacillin-Tazobactam 3 200 200 .375 gm In Sodium Chloride 0.9% 100 ml @ 25 mls/hr IVPB Q8H [facility] Rx#: [id number] Sodium Chloride 0.9% 1, 240 240 240 000 ml @ 20 mls/hr IV . Q24H [facility] Rx#:[id number] Intake, IV Titration 128.685 75.201 300 Amount Ampicillin-Sulbactam 3 gm 100 In Sodium Chloride 0.9% 100 ml @ 200 mls/hr IVPB Q6HR [facility] Rx#:[id number] Potassium Chloride 10 meq 200 In Water For Injection 1 100ml.bag @ 100 mls/hr IVPB Q1HR [facility] Rx#: [id number] propofoL 1,000 mg In 128.685 75.201 Empty Bag 1 bag @ Titrate IV .Q0M [facility] Rx#: [id number] Output: Gastric Drainage 110 Drainage 140 150 70 Left Abdomen 80 90 60 Right Abdomen 60 60 10 Urine 405 485 610 Other: Voiding Method Indwelling Catheter Indwelling Catheter Indwelling Catheter ABP, PAP, CO, CI - Last Documented Arterial Blood Pressure 126/118 - Exam No acute distress, currently extubated, on 3 L nasal cannula. HEENT examination is grossly unremarkable. Neck supple. Full range of motion. No adenopathy thyromegaly or neck vein dist ention. Cardiovascular examination reveals regular rhythm rate. S1-S2 normal. No S3 or S4. No discernible murmur noted. Heart sounds are distant. Heart rate about 75 bpm. Lungs reveal scattered bilateral rhonchi. No wheezes. No crackles. Breath sounds are equal bilaterally. Abdomen is soft without bowel sounds. No masses or tenderness. Extremities are intact. No cyanosis clubbing or edema. Skin is without rash or lesion. Neurologic examination is brief but nonfocal. - Labs CBC & Chem 7: 09/30/20 03:23 09/30/20 03:23 Labs: Abnormal Lab Results - Last 24 Hours (Table) 09/30/20 09/30/20 Range/Units 03:23 03:23 WBC 10.8 H (3.8-10.6) k/uL RBC 2.93 L (4.30-5.90) m/uL Hgb 8.5 L (13.0-17.5) gm/dL Hct 26.5 L (39.0-53.0) % RDW 18.4 H (11.5-15.5) % Plt Count 118 L (150-450) k/uL Neutrophils # (Manual) 7.78 H (1.3-7.7) k/uL Monocytes # (Manual) 1.08 H (0-1.0) k/uL Sodium 146 H (137-145) mmol/L Chloride 120 H (98-107) mmol/L Carbon Dioxide 21 L (22-30) mmol/L Calcium 7.7 L (8.4-10.2) mg/dL Total Protein 4.1 L (6.3-8.2) g/dL Albumin 2.1 L (3.5-5.0) g/dL Microbiology - Last 24 Hours (Table) 09/28/20 21:38 Gram Stain - Preliminary Sputum Sputum Culture - Preliminary 09/27/20 18:00 Blood Culture - Preliminary Blood No Growth after 48 hours 09/28/20 09:19 Blood Culture - Preliminary Blood No Growth after 24 hours Assessment and Plan Assessment: Status post exploratory laparotomy, splenectomy, and lysis of adhesions, on September 27, for splenic rupture, following ERCP, postop day #3. Postoperative routine mechanical ventilation, with successful extubation on September 29. Escherichia coli bacteremia, secondary to acute ascending cholangitis. Acute blood loss anemia, secondary to splenic rupture. Acute kidney injury, secondary to ATN. Postoperative bilateral pleural effusions, secondary to aggressive fluid management and administration of 3 units of PRBCs and 1 unit of platelets. History of hyperlipidemia. History of gout. History of hypertension. Plan: Plan dated 09/29/2020. The patient is currently still on the mechanical ventilator. We will do a daily interruption of sedation and a spontaneous breathing trial, and hope that the patient is ready for weaning and extubation. We will continue with antibiotics. The patient will continue on breathing treatments. The patient remains on Zosyn. Norepinephrine has been weaned off. The patient will continue on pain medication. Prognosis is guarded. Additional recommendations and suggestions to follow. We'll continue to follow make recommendations where appropriate. Plan dated 09/30/2020. The patient was successfully extubated yesterday. Remains on Zosyn as an antibiotic. The patient currently is on 3 L nasal cannula. I've encouraged the nurse to get the patient out of bed today and up in a chair. In addition, the patient needs to deep breathe, cough, and clear secretions, and also using incentive spirometer every hour. Also, we will switch his IV to D5W at 50 mL an hour. Additional recommendations and suggestions are forthcoming. Time with Patient: Greater than 30
[2020-09-30] MEDS: DEXTROSE 5% IN WATER 1,000 ML IV SCH (07:31)
[2020-09-30] MEDS: IPRATROPIUM-ALBUTEROL 3 ML NEB INHALATION SCH ×4 (07:42→20:36)
--- NOTE | 2020-09-30 08:01 | XR ---
EXAMINATION TYPE: XR chest 1V portable DATE OF EXAM: 09/30/2020 COMPARISON: 09/29/2020 INDICATION: Tube adjustment, previous abnormal chest TECHNIQUE: Single frontal view of the chest is obtained. FINDINGS: The heart size is normal. The pulmonary vasculature is normal. Bibasilar infiltrates are present. This is worsening on the right. Small left pleural effusion is sta ble Endotracheal tube and nasogastric tube is been removed. Right central venous catheters been removed. IMPRESSION: 1. No pneumothorax post catheter removal. 2. Worsening right lower lobe atelectasis. 3. Stable small left pleural effusion
[2020-09-30] MEDS: FAMOTIDINE 20 MG/2 ML VIAL IV SCH (08:44)
[2020-09-30] MEDS: atenoloL 50 MG TAB PO SCH (08:44)
--- NOTE | 2020-09-30 13:13 | P.PN ---
Subjective Progress Note Date: 09/30/20 CHIEF COMPLAINT: Right upper quadrant abdominal pain HISTORY OF PRESENT ILLNESS: Patient admitted to the hospital for ascending cholangitis. He was in transition for transfer to [facility] for def initive ERCP for common bile duct obstruction when he developed acute blood loss anemia and CT findings of ruptured spleen. patient was taken to the OR and is status post splenectomy for ruptured spleen. Postop day #3. Patient was successfully extubated yesterday. He is currently on 3 L nasal cannula. Lying in bed. He appears very weak. He failed his swallow eval yesterday. He is scheduled for another swallow eval later today. Currently nothing by mouth until swallow eval completed. Patient is afebrile. WBC decreased from 14 to 10.8. Hgb 8.5 Chest x-ray showing worsening right lower lobe atelectasis. He does have incentive spirometer at bedside. PHYSICAL EXAM: VITAL SIGNS: Reviewed. GENERAL: Well-developed in no acute distress. HEENT: No sclera icterus. Extraocular movements grossly intact. Moist buccal mucosa. Head is atraumatic, normocephalic. ABDOMEN: Soft. Abdominal binder in place. 2 ANDREA drains with serosanguineous output. NEUROLOGIC: Patient is intubated and sedated ASSESSMENT: 1. Acute splenic rupture of unclear etiology. Status post Exploratory laparo taras with extensive lysis of adhesions, open splenectomy, evacuation of hemoperitoneum, Application of incisional wound VAC system and Placement of Uriah-Grullon drains 2. Acute blood loss anemia due to splenic rupture 3. Ascending cholangitis with bacteremia 4. Symptomatic gallstone 5. Thrombocytopenia PLAN: -Continue ICU management -Continue supportive care -Will need immunizations for post-splenectomy management in 10 to 14 days, otherwise, 10/07/20 to 10/12/20. May also benefit from COVID vaccination. -Cholecystectomy deferred -Encourage incentive spirometry use -Continue PT OT -Continue antibiotics per ID -Okay to start low-fat diet from surgical standpoint if he passes his swallow eval Physician Quality Assurance Lab Technician note has been reviewed by physician. Signing provider agrees with the documented findings, assessment, and plan of care. Objective - Vital Signs Vital signs: Vital Signs Temp 98.4 F 09/30/20 12:00 Pulse 79 09/30/20 12:00 Resp 31 H 09/30/20 12:00 BP 147/61 09/30/20 12:00 Pulse Ox 96 09/30/20 11:00 Intake & Output 09/29/20 09/30/20 09/30/20 18:59 06:59 18:59 Intake Total 315.201 740 20 Output Total 635 680 60 Balance -319.799 60 -40 Weight 55.5 kg 55.6 kg Intake: IV 240 440 20 Piperacillin-Tazobactam 3 200 .375 gm In Sodium Chloride 0.9% 100 ml @ 25 mls/hr IVPB Q8H [facility] Rx#: [id number] Sodium Chloride 0.9% 1, 240 240 20 000 ml @ 20 mls/hr IV . Q24H [facility] Rx#:[id number] Intake, IV Titration 75.201 300 Amount Ampicillin-Sulbactam 3 gm 100 In Sodium Chloride 0.9% 100 ml @ 200 mls/hr IVPB Q6HR [facility] Rx#:[id number] Potassium Chloride 10 meq 200 In Water For Injection 1 100ml.bag @ 100 mls/hr IVPB Q1HR [facility] Rx#: [id number] propofoL 1,000 mg In 75.201 Empty Bag 1 bag @ Titrate IV .Q0M [facility] Rx#: [id number] Output: Drainage 150 70 Left Abdomen 90 60 Right Abdomen 60 10 Urine 485 610 60 Other: Voiding Method Indwelling Catheter Indwelling Catheter ABP, PAP, CO, CI - Last Documented Arterial Blood Pressure 126/118 - Labs CBC & Chem 7: 09/30/20 03:23 09/30/20 03:23 Labs: Abnormal Lab Results - Last 24 Hours (Table) 09/30/20 09/30/20 Range/Units 03:23 03:23 WBC 10.8 H (3.8-10.6) k/uL RBC 2.93 L (4.30-5.90) m/uL Hgb 8.5 L (13.0-17.5) gm/dL Hct 26.5 L (39.0-53.0) % RDW 18.4 H (11.5-15.5) % Plt Count 118 L (150-450) k/uL Neutrophils # (Manual) 7.78 H (1.3-7.7) k/uL Monocytes # (Manual) 1.08 H (0-1.0) k/uL Sodium 146 H (137-145) mmol/L Chloride 120 H (98-107) mmol/L Carbon Dioxide 21 L (22-30) mmol/L Calcium 7.7 L (8.4-10.2) mg/dL Total Protein 4.1 L (6.3-8.2) g/dL Albumin 2.1 L (3.5-5.0) g/dL Microbiology - Last 24 Hours (Table) 09/28/20 09:19 Blood Culture - Preliminary Blood No Growth after 48 hours 09/28/20 21:38 Gram Stain - Preliminary Sputum Sputum Culture - Preliminary 09/27/20 18:00 Blood Culture - Preliminary Blood No Growth after 48 hours
--- NOTE | 2020-09-30 13:27 | P.PN ---
Subjective Progress Note Date: 09/30/20 (delayed charting seen at 0930) Principal diagnosis: abdominal pain Patient is an 85-year-old male with a past medical history of hypertension and peripheral arterial disease. He had been found to have elevated liver enzymes and has been being worked up as an outpatient basis. Patient had a liver ultrasound and MRCP which suggested cholestasis with multiple gallstones. Patie sandi presented to the emergency department on 09/24/20 with a chief complaint of right upper quadrant abdominal pain 1 day associated with nausea, vomiting, and diarrhea. Patient admitted under our services for acute ascending cholangitis with transaminitis and HERMELINDO. Abdominal ultrasound completed revealing numerous gallstones. Patient was under leukocytosis with a WBC count of 17.1, anemia with hemoglobin of 10.8, and thrombocytopenia with platelet count of 104,000. Acute kidney injury with BUN of 38, creatinine 1.63, and GFR of 38 with baseline hemoglobin of 1.2. Patient was taken for ERCP on 09/[address] 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 Call was made to transfer center and patient was accepted for transfer at [facility] by Dr. Wolfe. Patient was awaiting a bed assignment for transfer to be completed. Blood cultures positive for E. coli, patient provided coverage with continued use of IV antibiotics: Zosyn. His hemoglobin acutely dropped on the morning of 09/27 from 9.5-6.7. This was confirmed on repeat blood draw. He was taken down for emergent CT abdomen and pelvis which showed splenic rupture with possible hemorrhage into the pelvis. Surgery was contacted and the patient emergently went to the OR. 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 2 ANDREA drains were placed. Patient return to the ICU intubated and was successfully extubated on 09/29 and did have some confusion. Patient seen and examined at bedside. Very confused, c/o belly pain, no nausea Failed swallow study. General: non toxic, no distress, appears younger than stated age Derm: warm, dry Head: atraumatic, normocephalic, symmetric Eyes: EOMI, no lid lag, anicteric sclera Mouth: no lip lesion, mucus membranes moist Cardiovascular: S1S2 reg with grade 2 systolic ejection murmur, positive posterior tibial pulse bilateral, Lungs: Decreasing bilateral, no rhonchi, no rales , no accessory muscle use, on vent Abdominal: soft, nondistended, +TTP diffusely, no appreciable organomegaly, dressing over midline incision, [address] with minimal serous sanguinous output. Ext: no gross muscle atrophy, no edema, no contractures Neuro: Moving all 4 extremities independently, no focal neuro deficits noted. Psych: Alert to self and hospital. Splenic rupture with acute blood loss anemia, thrombocytopenia, hypovolemic shock, resolved - s/p 3 units of pRBC and 1 unit of plt - surgery recs -Plan will be for immunization prior to discharge from hospital for day 14 w hichever comes first. Patient will need strep pneumonia vaccine, meningitis, and Haemophilus influenza B prior to discharge. Hypernatremia -Secondary to decreased access to free water as CPAP of swallow evaluation -D5 -Check sodium at 1200 Acute ascending cholangitis with E. coli bacteremia -Outpatient MRCP revealed choledocholithiasis with possible obstructive jaundice pattern. -Patient was taken for ERCP on 09/25/[address] Huang, however it was reported that scope could not be advanced. D/W Dr. Yuen and will manage gallbladder as an outpatient at this time, no need for transfer. -Repeat blood cultures are negative to date -on Unasyn, ID recs Acute kidney injury, resolved - baseline creatinine of 1.2. -Hold nephrotoxic medications -Continue to hold lisinopril secondary to recent hypotension requiring norepinephrine. Hypertension -With recent hypotension -atenolol -hold lisinopril -Follow blood pressures Acute post-op respiratory, resolved - failed swallow study. speech evaluation DVT prophylaxis: SCDs Discussed with: nursing Anticipated discharge: undetermined Anticipated discharge place: undetermined A total of 34 minutes was spent on the care of this complex patient more than 50% of the time was spent in counseling and care coordination. Objective - Vital Signs Vital signs: Vital Signs Temp 98.4 F 09/30/20 12:00 Pulse 79 09/30/20 12:00 Resp 31 H 09/30/20 12:00 BP 147/61 09/30/20 12:00 Pulse Ox 96 09/30/20 11:00 Intake & Output 09/29/20 09/30/20 09/30/20 18:59 06:59 18:59 Intake Total 315.201 740 20 Output Total 635 680 60 Balance -319.799 60 -40 Weight 55.5 kg 55.6 kg Intake: IV 240 440 20 Piperacillin-Tazobactam 3 200 .375 gm In Sodium Chloride 0.9% 100 ml @ 25 mls/hr IVPB Q8H [facility] Rx#: [id number] Sodium Chloride 0.9% 1, 240 240 20 000 ml @ 20 mls/hr IV . Q24H [facility] Rx#:[id number] Intake, IV Titration 75.201 300 Amount Ampicillin-Sulbactam 3 gm 100 In Sodium Chloride 0.9% 100 ml @ 200 mls/hr IVPB Q6HR [facility] Rx#:[id number] Potassium Chloride 10 meq 200 In Water For Injection 1 100ml.bag @ 100 mls/hr IVPB Q1HR [facility] Rx#: [id number] propofoL 1,000 mg In 75.201 Empty Bag 1 bag @ Titrate IV .Q0M [facility] Rx#: [id number] Output: Drainage 150 70 Left Abdomen 90 60 Right Abdomen 60 10 Urine 485 610 60 Other: Voiding Method Indwelling Catheter Indwelling Catheter ABP, PAP, CO, CI - Last Documented Arterial Blood Pressure 126/118 - Labs CBC & Chem 7: 09/30/20 03:23 09/30/20 03:23 Labs: Abnormal Lab Results - Last 24 Hours (Table) 09/30/20 09/30/20 Range/Units 03:23 03:23 WBC 10.8 H (3.8-10.6) k/uL RBC 2.93 L (4.30-5.90) m/uL Hgb 8.5 L (13.0-17.5) gm/dL Hct 26.5 L (39.0-53.0) % RDW 18.4 H (11.5-15.5) % Plt Count 118 L (150-450) k/uL Neutrophils # (Manual) 7.78 H (1.3-7.7) k/uL Monocytes # (Manual) 1.08 H (0-1.0) k/uL Sodium 146 H (137-145) mmol/L Chloride 120 H (98-107) mmol/L Carbon Dioxide 21 L (22-30) mmol/L Calcium 7.7 L (8.4-10.2) mg/dL Total Protein 4.1 L (6.3-8.2) g/dL Albumin 2.1 L (3.5-5.0) g/dL Microbiology - Last 24 Hours (Table) 09/28/20 09:19 Blood Culture - Preliminary Blood No Growth after 48 hours 09/28/20 21:38 Gram Stain - Preliminary Sputum Sputum Culture - Preliminary 09/27/20 18:00 Blood Culture - Preliminary Blood No Growth after 48 hours
--- NOTE | 2020-09-30 15:06 | P.PN ---
Subjective Progress Note Date: 09/30/20 Principal diagnosis: Choledocholithiasis, elevated LFTs Patient is seen and examined lying in bed in the ICU. He was extubated yesterday. He does exhibit some confusion. He has an abdominal binder with wound VAC and ANDREA drain present. He has been afebrile. LFTs are normal. Objective - Vital Signs Vital signs: Vital Signs Temp 98.1 F 09/30/20 04:00 Pulse 82 09/30/20 07:53 Resp 30 H 09/30/20 07:00 BP 150/56 09/30/20 07:00 Pulse Ox 97 09/30/20 07:00 Intake & Output 09/29/20 09/30/20 09/30/20 18:59 06:59 18:59 Intake Total 315.201 740 20 Output Total 635 680 60 Balance -319.799 60 -40 Weight 55.5 kg 55.6 kg Intake: IV 240 440 20 Piperacillin-Tazobactam 3 200 .375 gm In Sodium Chloride 0.9% 100 ml @ 25 mls/hr IVPB Q8H [facility] Rx#: [id number] Sodium Chloride 0.9% 1, 240 240 20 000 ml @ 20 mls/hr IV . Q24H [facility] Rx#:[id number] Intake, IV Titration 75.201 300 Amount Ampicillin-Sulbactam 3 gm 100 In Sodium Chloride 0.9% 100 ml @ 200 mls/hr IVPB Q6HR [facility] Rx#:[id number] Potassium Chloride 10 meq 200 In Water For Injection 1 100ml.bag @ 100 mls/hr IVPB Q1HR [facility] Rx#: [id number] propofoL 1,000 mg In 75.201 Empty Bag 1 bag @ Titrate IV .Q0M [facility] Rx#: [id number] Output: Drainage 150 70 Left Abdomen 90 60 Right Abdomen 60 10 Urine 485 610 60 Other: Voiding Method Indwelling Catheter Indwelling Catheter ABP, PAP, CO, CI - Last Documented Arterial Blood Pressure 126/118 - Exam General appearance: The patient is alert, oriented to self, appears in no acute distress. HET: Head is normocephalic and atraumatic. Conjunctiva pink. Sclera anicteric. Neck: Supple without lymphadenopathy. Abdomen: Soft, surgical tenderness, wound VAC intact, ANDREA drain intact, nondistended with bowel sounds. No guarding or rigidity. Extremities: Normal skin color and turgor. No pedal edema Skin: No rashes, no jaundice. Neurological: No focal deficits. Alert and oriented 1 - Labs CBC & Chem 7: 09/30/20 03:23 09/30/20 03:23 Labs: Abnormal Lab Results - Last 24 Hours (Table) 09/30/20 09/30/20 Range/Units 03:23 03:23 WBC 10.8 H (3.8-10.6) k/uL RBC 2.93 L (4.30-5.90) m/uL Hgb 8.5 L (13.0-17.5) gm/dL Hct 26.5 L (39.0-53.0) % RDW 18.4 H (11.5-15.5) % Plt Count 118 L (150-450) k/uL Neutrophils # (Manual) 7.78 H (1.3-7.7) k/uL Monocytes # (Manual) 1.08 H (0-1.0) k/uL Sodium 146 H (137-145) mmol/L Chloride 120 H (98-107) mmol/L Carbon Dioxide 21 L (22-30) mmol/L Calcium 7.7 L (8.4-10.2) mg/dL Total Protein 4.1 L (6.3-8.2) g/dL Albumin 2.1 L (3.5-5.0) g/dL Microbiology - Last 24 Hours (Table) 09/28/20 21:38 Gram Stain - Preliminary Sputum Sputum Culture - Preliminary 09/27/20 18:00 Blood Culture - Preliminary Blood No Growth after 48 hours 09/28/20 09:19 Blood Culture - Preliminary Blood No Growth after 24 hours Assessment and Plan (1) Choledocholithiasis Narrative/Plan: 85-year-old male presenting to the hospital with complaints of right upper quadrant abdominal pain. Previous imaging suggestive of choledocholithiasis on MRCP. Patient was taken for ERCP which was unsuccessful secondary to technical difficulty of the procedure due to patient's anatomy with the papilla unable to be cannulated. Currently on broad-spectrum antibiotic therapy the patient is scheduled to be transferred to tertiary center for evaluation by advanced endoscopy service. 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 Current Visit: Yes Status: Acute Code(s): K80.50 - CALCULUS OF BILE DUCT W/O CHOLANGITIS OR CHOLECYST W/O OBST SNOMED Code(s): 896439091 (2) Ascending cholangitis Current Visit: Yes Status: Acute Code(s): K83.09 - OTHER CHOLANGITIS SNOMED Code(s): 74012960 (3) E coli bacteremia Current Visit: Yes Status: Acute Code(s): R78.81 - BACTEREMIA; B96.20 - UNSP ESCHERICHIA COLI THE CAUSE OF DISEASES CLASSD [facility] SNOMED Code(s): 473991426407 (4) Elevated liver enzymes Current Visit: Yes Status: Acute Code(s): R74.8 - ABNORMAL LEVELS OF OTHER SERUM ENZYMES SNOMED Code(s): 540633304 (5) Ruptured spleen Narrative/Plan: General surgery following Current Visit: Yes Status: Acute Code(s): S36.09XA - OTHER INJURY OF SPLEEN, INITIAL ENCOUNTER SNOMED Code(s): 267681767 (6) Acute blood loss anemia Narrative/Plan: Computed tomography scan performed in evaluation of abdominal pain and fall in hemoglobin showing splenic laceration/rupture for which the patient was taken for splenectomy currently postop day #3 in the ICU. Current Visit: Yes Status: Acute Code(s): D62 - ACUTE POSTHEMORRHAGIC ANEMIA SNOMED Code(s): 261955680 Plan: 1. Continue supportive and symptomatic care 2. Diet per recommendations from surgical services 3. Continue to monitor CBC, CMP 4. Continue broad-spectrum antibiotic therapy 5. Continue postoperative care status post splenectomy 6. Patient will require follow-up with tertiary center for ERCP, either as transfer or in follow-up after discharge Thank you for this consultation, we will continue to follow Dr. Causey I agree with the dictator's note, documented as a scribe by Christa Galan.
[2020-10-01] MEDS: AMPICILLIN-SULBACTAM 3 GM in SODIUM CHLORIDE 0.9% 100 ML IVPB SCH ×5 (00:01→20:58)
[2020-10-01] MEDS: DEXTROSE 5% IN WATER 1,000 ML IV SCH (02:21)
[2020-10-01 04:25] LABS: Anisocytosis Slight; HCT 25.9 % (39.0-53.0); HGB 8.3 gm/dL (13.0-17.5); MCH 29.9 pg (25.0-35.0); MCHC 32.1 g/dL (31.0-37.0); MCV 93.2 fL (80.0-100.0); Mean Platelet Volume 9.4; Platelet Count 164 k/uL (150-450); RBC 2.78 m/uL (4.30-5.90); RDW 18.5 % (11.5-15.5); WBC 13.6 k/uL (3.8-10.6)
[2020-10-01 04:39] LABS: ALT 37 U/L (4-49); AST 46 U/L (17-59); African American GFR (CKD) >90 (>60 ml/min/1.73 sqM); Albumin 2.1 g/dL (3.5-5.0); Alkaline Phosphatase 92 U/L (38-126); Anion Gap 7 mmol/L; Blood Urea Nitrogen 13 mg/dL (9-20); Calcium 7.6 mg/dL (8.4-10.2); Carbon Dioxide 19 mmol/L (22-30); Chloride 119 mmol/L (98-107); Glucose 89 mg/dL (74-99); Non-African American GFR(CKD) 80 (>60 ml/min/1.73 sqM); Potassium 3.6 mmol/L (3.5-5.1); Sodium 145 mmol/L (137-145); Total Bilirubin 0.7 mg/dL (0.2-1.3); Total Protein 4.1 g/dL (6.3-8.2)
[2020-10-01] MEDS: POTASSIUM CHLORIDE 10 MEQ in WATER FOR INJECTION 1 100ML.BAG IVPB SCH ×5 (04:55→20:50)
--- NOTE | 2020-10-01 06:57 | XR ---
EXAMINATION TYPE: XR chest 1V portable DATE OF EXAM: 10/01/2020 HISTORY: Shortness of breath. COMPARISON: 09/30/2020 TECHNIQUE: Single view of the chest is submitted. FINDINGS: Demonstrated are scattered senescent parenchymal change. Increasing right lower lobe infiltrate. Basilar atelectasis persists. The heart is stable. Hilar and mediastinal structures are within normal limits. Degenerative changes are seen of the dorsal spine. IMPRESSION: 1. Increasing right lower lobe infiltrate.
[2020-10-01] MEDS: IPRATROPIUM-ALBUTEROL 3 ML NEB INHALATION SCH ×5 (08:04→20:37)
--- NOTE | 2020-10-01 08:11 | PN ---
PROGRESS NOTE DATE OF SERVICE: 09/30/2020 REASON FOR FOLLOWUP: Bacteremia and cholangitis. INTERVAL HISTORY: Patient is afebrile. The patient has been extubated. He is currently breathing comfortably . He is pleasant, confused. No agitation has been noticed. He is hemodynamically stable, not on pressor support. No vomiting or diarrhea reported by nursing staff. PHYSICAL EXAMINATION: Blood pressure 154/58 with a pulse of 65, temperature 98.2. He is 92% on 4 L nasal cannula. General description is an elderly male lying in no distress. Respiratory system: Unlabored breathing, decreased breath sounds at bases. No wheeze. Heart: S1, S2. Regular rate and rhythm. Abdomen is soft, no tenderness. LABS: Creatinine is 8.5, white count 10.8, BUN of 15, creatinine 0.95. Blood culture has been negative so far. Sputum culture is pending. DIAGNOSTIC IMPRESSION AND PLAN: Patient with Escherichia coli bacteremia, question of possible cholangitis. This patient did have after status post splenectomy. The patient is currently covered with Unasyn and to continue while waiting for the culture to be finalized. Monitor clinical course closely. Continue supportive care. MMODL / IJN: [id number] /
--- NOTE | 2020-10-01 08:49 | P.PN ---
Subjective Progress Note Date: 10/01/20 Principal diagnosis: Respiratory failure. This is an 85-year-old white male with 1 day history of right upper quadrant pain, presented initially to the hospital on 09/24/2020, patient was diagnosed as having choledocholithiasis and ascending cholangitis. Patient was seen by brandie roenterology on consultation, and he underwent attempted ERCP, however the ERCP was difficult, and could not be diagnostic or therapeutic. This was done on 09/25, and according to the note by the cutlet maker pork multiple attempts were made to advance the scope into the duodenum and visualizing the ampullary orifice was not successful. Hence ERCP was not performed. The cutlet maker pork recommended referral to [facility] for ERCP. Surgery was consulted on the patient on 09/25/2020, and the patient was seen by Dr. Fried. He recommended laparoscopic cholecystectomy and this was supposed to be scheduled on 09/29/2020. In the meantime the patient was found to have E. coli bacteremia and he was on antibiotics all along. On 09/27/2020, patient was noted to have significant blood loss anemia, CT of the abdomen and pelvis showed splenic fracture. Hence Dr. Turcios saw the patient on consultation, and the patient underwent emergency exploratory laparotomy, extensive lysis of adhesions, open splenectomy with control of bleeding, evacuation of hemoperitoneum, application of a wound VAC system, placement of a ANDREA drain in the left splenic fossa and right at pelvis. Due to the emergency situation, open cholecystectomy was not performed, patient was transfused, required a total of 3 units of packed RBCs since his admission, and he also received 1 unit of platelets. Post surgery, patient was on mechanical ventilation, admitted to the ICU, and I was asked to see him on consultation. Patient is now on assist control rate of 14, volume of 450 FiO2 35% PEEP of 5 ABG showed a pO2 of 83 pCO2 of 30 pH of 7.45, patient was on bicarb drip which I discontinued. He is on pr opofol at 50 mcg/kg/m, norepinephrine at 0.01 mcg/kg/m, and I cut down his IV fluid since his chest x-ray is showing fluid overload and bilateral pleural effusions, and I would recommend gentle diuresis. Hemoglobin this morning is 7.4. His renal profile has improved in the last 24 hours. Creatinine was 1.3 to yesterday, and it is 1.16 today. A shunt didn't receive significant amount of fluids and blood products over the last 24 hours. During my evaluation, patient was fully sedated, and I have recommended holding the propofol, awakening the patient, give the patient at least a weaning trial, with pressure support and CPAP, and possibly proceed to extubation today. Progress note dated 09/29/2020. This an 85-year-old male who was admitted on September 24, for abdominal pain, nausea, and vomiting. The patient was discovered to have gallstones, and underwent an ERCP. Apparently the ERCP was not successful. Subsequent to that, the patient developed a splenic rupture. On September 27, the patient underwent exploratory laparotomy, lysis of adhesions, and splenectomy. For some unclear reason, a gallbladder was not removed. The patient remains on the ventilator, having been ventilated for the surgery on the . Currently, the patient is on the volume assist control mode, rate 14, tidal volume 450, FiO2 35%, and PEEP of 5. Blood gases show a PaO2 that is 361, a PaCO2 which is 35, pH is 7.4. I doubt the accuracy of the PaO2 on the blood gas. In addition, the patient's on propofol at 40 mcg/kg/m, and saline at KVO. No tube feeds. We will do a daily interruption of sedation, and possible spontaneous breathing trial with hopes of extubation. White count 14.1, hemoglobin 8.3, hematocrit 25.1, and platelet count 79,000. Sodium 143, potassium 3.3, chlorides 117, CO2 22, anion gap 4, BUN 23, and creatinine 1.09. Chest x-ray shows some bibasilar infiltrates and/or atelectasis. Progress note dated 09/30/2020. 85-year-old male who was admitted on September 24 for abdominal pain, nausea, and vomiting. The patient was discovered to have gallstones, and underwent an ERCP. Apparently the ERCP was unsuccessful. Subsequent to that, the patient developed a splenic rupture. On September 27, the patient underwent exploratory laparotomy, lysis of adhesions, and splenectomy. Gallbladder was not removed at that time. Yesterday, the patient was mechanically ventilated. Yesterday, the patient had an excellent weaning trial, after a daily interruption of sedation. The patient was extubated yesterday. He's currently on 3 L nasal cannula. And saline at KVO. He is doing reasonably well. His chest x-ray does show some bibasilar infiltrates or atelectasis and small effusions. He will need to deep breathe, cough, clear secretions, and using incentive spirometer. White count 10.8, hemoglobin 8.5, hematocrit 26.5, and platelet count 118,000. Sodium 146, potassium 3.5, chlorides 120, CO2 21, anion gap 5, BUN 15, creatinine 0.95. Progress note dated 10/01/2020. 85-year-old male who was admitted to the hospital on September 24 for abdominal pain, nausea, and vomiting. The patient underwent a ERCP, for gallstones, which was unsuccessful, and subsequent to that, developed a splenic rupture. On September 27, the patient underwent exploratory laparotomy, lysis of adhesions, and splenectomy. The gallbladder, at that time, was not removed. The patient was initially on the mechanical ventilator. He was extubated on September 29. Currently, he's on 2 L nasal cannula, and getting D5W at 50 mL an hour. Todays sodium is down to 145. In my opinion, the patient could be transferred to the general medical floor. White count 13.6, hemoglobin 8.3, hematocrit 25.9, and platelet count 164,000. Sodium 145, potassium 3.6, chlorides 119, CO2 19, BUN 13, and creatinine 0.86. Chest x-ray shows right lower lobe infiltrate/atelectasis. Blood sampling from September 25 shows Escherichia coli. The patient is currently on Unasyn as monotherapy. Objective - Vital Signs Vital signs: Vital Signs Temp 97.4 F L 10/01/20 08:00 Pulse 80 10/01/20 08:17 Resp 30 H 10/01/20 08:17 BP 168/66 10/01/20 08:00 Pulse Ox 96 10/01/20 08:00 Intake & Output 09/30/20 10/01/20 10/01/20 18:59 06:59 18:59 Intake Total 1020 650 50 Output Total 530 265 Balance 490 385 50 Weight 56 kg Intake: IV 870 600 50 Ampicillin-Sulbactam 3 gm 100 In Sodium Chloride 0.9% 100 ml @ 200 mls/hr IVPB Q6HR [facility] Rx#:[id number] Dextrose 5% in Water 1, 550 600 50 000 ml @ 50 mls/hr IV . Q20H [facility] Rx#:[id number] Potassium Chloride 10 meq 200 In Water For Injection 1 100ml.bag @ 100 mls/hr IVPB Q1HR [facility] Rx#: [id number] Sodium Chloride 0.9% 1, 20 000 ml @ 20 mls/hr IV . Q24H [facility] Rx#:[id number] Oral 150 50 Output: Drainage 40 265 Left Abdomen 40 235 Right Abdomen 30 Urine 490 0 Other: Voiding Method External Catheter External Catheter # Voids 0 0 # Bowel Movements 1 ABP, PAP, CO, CI - Last Documented Arterial Blood Pressure 126/118 - Exam No acute distress, currently extubated, on 2 L nasal cannula. HEENT examination is grossly unremarkable. Neck supple. Full range of motion. No adenopathy thyromegaly or neck vein distention. Cardiovascular examination reveals regular rhythm rate. S1-S2 normal. No S3 or S4. No discernible murmur noted. Heart sounds are distant. Heart rate about 80 bpm. Lungs reveal scattered bilateral rhonchi. No wheezes. No crackles. Breath sounds are equal bilaterally. Abdomen is soft without bowel sounds. No masses or tenderness. Extremities are intact. No cyanosis clubbing or edema. Skin is without rash or lesion. Neurologic examination is brief but nonfocal. - Labs CBC & Chem 7: 10/01/20 03:25 10/01/20 03:25 Labs: Abnormal Lab Results - Last 24 Hours (Table) 10/01/20 10/01/20 Range/Units 03:25 03:25 WBC 13.6 H (3.8-10.6) k/uL RBC 2.78 L (4.30-5.90) m/uL Hgb 8.3 L (13.0-17.5) gm/dL Hct 25.9 L (39.0-53.0) % RDW 18.5 H (11.5-15.5) % Chloride 119 H (98-107) mmol/L Carbon Dioxide 19 L (22-30) mmol/L Calcium 7.6 L (8.4-10.2) mg/dL Total Protein 4.1 L (6.3-8.2) g/dL Albumin 2.1 L (3.5-5.0) g/dL Microbiology - Last 24 Hours (Table) 09/27/20 18:00 Blood Culture - Preliminary Blood No Growth after 72 hours 09/28/20 09:19 Blood Culture - Preliminary Blood No Growth after 48 hours 09/28/20 21:38 Gram Stain - Preliminary Sputum Sputum Culture - Preliminary Assessment and Plan Assessment: Status post exploratory laparotomy, splenectomy, and lysis of adhesions, on September 27, for splenic rupture, following ERCP, postop day #3. Postoperative routine mechanical ventilation, with successful extubation on September 29. Escherichia coli bacteremia, secondary to acute ascending cholangitis, currently on Unasyn. Acute blood loss anemia, secondary to splenic rupture. Acute kidney injury, secondary to ATN. Postoperative bilateral pleural effusions, secondary to aggressive fluid davy gement and administration of 3 units of PRBCs and 1 unit of platelets. History of hyperlipidemia. History of gout. History of hypertension. Plan: Plan dated 09/29/2020. The patient is currently still on the mechanical ventilator. We will do a daily interruption of sedation and a spontaneous breathing trial, and hope that the patient is ready for weaning and extubation. We will continue with antibiotics. The patient will continue on breathing treatments. The patient remains on Zosyn. Norepinephrine has been weaned off. The patient will continue on pain medication. Prognosis is guarded. Additional recommendations and suggestions to follow. We'll continue to follow make recommendations where appropriate. Plan dated 09/30/2020. The patient was successfully extubated yesterday. Remains on Zosyn as an antibiotic. The patient currently is on 3 L nasal cannula. I've encouraged the nurse to get the patient out of bed today and up in a chair. In addition, the patient needs to deep breathe, cough, and clear secretions, and also using incentive spirometer every hour. Also, we will switch his IV to D5W at 50 mL an hour. Additional recommendations and suggestions are forthcoming. Plan dated 10/01/2020. Currently, the patient's doing well. The patient needs to continue with deep breathing, coughing, and clearing his secretions. Likewise, the patient needs to use the incentive spirometer every hour. The patient remains on Unasyn as monotherapy for E. coli bacteremia. The patient's down to 2 L nasal cannula. His sodium is come down from 146 to 145 on D5W. The patient is stable for transfer to general medical floor without telemetry. Prognosis remains guarded. Time with Patient: Less than 30
[2020-10-01] MEDS: FAMOTIDINE 20 MG/2 ML VIAL IV SCH (08:56)
[2020-10-01] MEDS: atenoloL 50 MG TAB PO SCH (08:56)
--- NOTE | 2020-10-01 10:44 | P.PN ---
Subjective Progress Note Date: 10/01/20 Principal diagnosis: pain 85-year-old male with a past medical history of hypertension and peripheral arterial disease. He had been found to have elevated liver enzymes and has been being worked up as an outpatient basis. Patient had a liver ultrasound and MRCP which suggested cholestasis with multiple gallstones. Patient presented to the emergency department on 09/24/20 with a chief complaint of right upper quadrant abdominal pain 1 day associated with nausea, vomiting, and diarrhea. Patient admitted under our services for acute ascending cholangitis with transaminitis and HERMELINDO. Abdominal ultrasound completed revealing numerous gallstones. He was found to have leukocytosis with a WBC count of 17.1, anemia with hemoglobin of 10.8, and thrombocytopenia with platelet count of 104,000, acute kidney injury with BUN of 38, creatinine 1.63, and GFR of 38 with baseline hemoglobin of 1.2. Patient was taken for ERCP on 09/[address] 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 Call was made to transfer center and patient was accepted for transfer at [facility] by Dr. Wolfe. Patient was awaiting a bed assignment for transfer to be completed. Blood cultures positive for E. coli, patient provided coverage with continued use of IV antibiotics: Zosyn. His hemoglobin acutely dropped on the morning of 09/27 from 9.5-6.7. This was confirmed on repeat blood draw. He was taken down for emergent CT abdomen and pelvis which showed splenic rupture with possible hemorrhage into the pelvis. Surgery was contacted and the patient emergently went to the OR. 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 2 ANDREA drains were placed. Patient return to the ICU intubated and was successfully extubated on 09/29 and did have some confusion. Patient seen and examined at bedside. He is still very confused, unable to provide reliable hx. No fevers, no nausea or vomiting. Objective - Vital Signs Vital signs: Vital Signs Temp 97.4 F L 10/01/20 08:00 Pulse 80 10/01/20 08:17 Resp 30 H 10/01/20 08:17 BP 168/66 10/01/20 08:00 Pulse Ox 96 10/01/20 08:00 Intake & Output 09/30/20 10/01/20 10/01/20 18:59 06:59 18:59 Intake Total 1020 650 50 Output Total 530 265 Balance 490 385 50 Weight 56 kg Intake: IV 870 600 50 Ampicillin-Sulbactam 3 gm 100 In Sodium Chloride 0.9% 100 ml @ 200 mls/hr IVPB Q6HR [facility] Rx#:[id number] Dextrose 5% in Water 1, 550 600 50 000 ml @ 50 mls/hr IV . Q20H [facility] Rx#:[id number] Potassium Chloride 10 meq 200 In Water For Injection 1 100ml.bag @ 100 mls/hr IVPB Q1HR [facility] Rx#: [id number] Sodium Chloride 0.9% 1, 20 000 ml @ 20 mls/hr IV . Q24H [facility]ILIA Rx#:[id number] Oral 150 50 Output: Drainage 40 265 Left Abdomen 40 235 Right Abdomen 30 Urine 490 0 Other: Voiding Method External Catheter External Catheter # Voids 0 0 # Bowel Movements 1 ABP, PAP, CO, CI - Last Documented Arterial Blood Pressure 126/118 - Exam General: non toxic, no distress, appears younger than stated age Derm: warm, dry Head: atraumatic, normocephalic, symmetric Eyes: EOMI, no lid lag, anicteric sclera Mouth: no lip lesion, mucus membranes moist Cardiovascular: S1S2 reg with grade 2 systolic ejection murmur, positive posterior tibial pulse bilateral, Lungs: Decreasing bilateral, no rhonchi, no rales , no accessory muscle use, on vent Abdominal: soft, nondistended, +TTP diffusely, no appreciable organomegaly, dressing over midline incision, [address] with minimal serous sanguinous output. Ext: no gross muscle atrophy, no edema, no contractures Neuro: Moving all 4 extremities independently, no focal neuro deficits noted. Psych: Alert to self and hospital. - Labs CBC & Chem 7: 10/01/20 03:25 10/01/20 03:25 Labs: Abnormal Lab Results - Last 24 Hours (Table) 10/01/20 10/01/20 Range/Units 03:25 03:25 WBC 13.6 H (3.8-10.6) k/uL RBC 2.78 L (4.30-5.90) m/uL Hgb 8.3 L (13.0-17.5) gm/dL Hct 25.9 L (39.0-53.0) % RDW 18.5 H (11.5-15.5) % Chloride 119 H (98-107) mmol/L Carbon Dioxide 19 L (22-30) mmol/L Calcium 7.6 L (8.4-10.2) mg/dL Total Protein 4.1 L (6.3-8.2) g/dL Albumin 2.1 L (3.5-5.0) g/dL Microbiology - Last 24 Hours (Table) 09/28/20 21:38 Gram Stain - Final Sputum Sputum Culture - Final 09/27/20 18:00 Blood Culture - Preliminary Blood No Growth after 72 hours 09/28/20 09:19 Blood Culture - Preliminary Blood No Growth after 48 hours Assessment and Plan Plan: Splenic rupture with acute blood loss anemia, thrombocytopenia, hypovolemic shock, resolved - s/p 3 units of pRBC and 1 unit of plt - surgery recs -Plan will be for immunization prior to discharge from hospital for day 14 whichever comes first. Patient will need strep pneumonia vaccine, meningitis, and Haemophilus influenza B prior to discharge. Hypernatremia -Improved, continue D5 -Check sodium in am Acute ascending cholangitis with E. coli bacteremia -Outpatient MRCP revealed choledocholithiasis with possible obstructive jaundice pattern. -Patient was taken for ERCP on 09/25/[address] Huang, however it was reported that scope could not be advanced. D/W Dr. Yuen and will manage gallbladder as an outpatient at this time, no need for transfer. -Repeat blood cultures are negative to date -on Unasyn, ID recs Acute kidney injury, resolved - baseline creatinine of 1.2. -Hold nephrotoxic medications -Continue to hold lisinopril secondary to recent hypotension requiring norepinephrine. Hypertension -With recent hypotension -atenolol -hold lisinopril -Follow blood pressures Acute post-op respiratory, resolved - failed swallow study. speech evaluation DVT prophylaxis: SCDs Discussed with: nursing Anticipated discharge: undetermined Anticipated discharge place: undetermined A total of 34 minutes was spent on the care of this complex patient more than 50% of the time was spent in counseling and care coordination.
--- NOTE | 2020-10-01 12:47 | P.PN ---
Subjective Progress Note Date: 10/01/20 Principal diagnosis: Choledocholithiasis, elevated LFTs Patient is seen and examined in the ICU. He was just transferred into the bedside chair with physical therapy. No acute changes through the night. Liver enzymes continue to be normal. Denies any abdominal pain, nausea, or vomiting. Patient still having confusion. Objective - Vital Signs Vital signs: Vital Signs Temp 97.4 F L 10/01/20 08:00 Pulse 80 10/01/20 08:17 Resp 30 H 10/01/20 08:17 BP 168/66 10/01/20 08:00 Pulse Ox 96 10/01/20 08:00 Intake & Output 09/30/20 10/01/20 10/01/20 18:59 06:59 18:59 Intake Total 1020 650 50 Output Total 530 265 Balance 490 385 50 Weight 56 kg 56 kg Intake: IV 870 600 50 Ampicillin-Sulbactam 3 gm 100 In Sodium Chloride 0.9% 100 ml @ 200 mls/hr IVPB Q6HR [facility] Rx#:[id number] Dextrose 5% in Water 1, 550 600 50 000 ml @ 50 mls/hr IV . Q20H [facility] Rx#:[id number] Potassium Chloride 10 meq 200 In Water For Injection 1 100ml.bag @ 100 mls/hr IVPB Q1HR [facility] Rx#: [id number] Sodium Chloride 0.9% 1, 20 000 ml @ 20 mls/hr IV . Q24H FAMILIA Rx#:[id number] Oral 150 50 Output: Drainage 40 265 Left Abdomen 40 235 Right Abdomen 30 Urine 490 0 Other: Voiding Method External Catheter External Catheter # Voids 0 0 # Bowel Movements 1 ABP, PAP, CO, CI - Last Documented Arterial Blood Pressure 126/118 - Exam General appearance: The patient is alert, oriented to self, appears in no acute distress. HET: Head is normocephalic and atraumatic. Conjunctiva pink. Sclera anicteric. Neck: Supple without lymphadenopathy. Abdomen: Soft, surgical tenderness, wound VAC intact, ANDREA drain intact, nondistended with bowel sounds. No guarding or rigidity. Extremities: Normal skin color and turgor. No pedal edema Skin: No rashes, no jaundice. Neurological: No focal deficits. Alert and oriented 1 - Labs CBC & Chem 7: 10/01/20 03:25 10/01/20 10:49 Labs: Abnormal Lab Results - Last 24 Hours (Table) 10/01/20 10/01/20 Range/Units 03:25 03:25 WBC 13.6 H (3.8-10.6) k/uL RBC 2.78 L (4.30-5.90) m/uL Hgb 8.3 L (13.0-17.5) gm/dL Hct 25.9 L (39.0-53.0) % RDW 18.5 H (11.5-15.5) % Chloride 119 H (98-107) mmol/L Carbon Dioxide 19 L (22-30) mmol/L Calcium 7.6 L (8.4-10.2) mg/dL Total Protein 4.1 L (6.3-8.2) g/dL Albumin 2.1 L (3.5-5.0) g/dL Microbiology - Last 24 Hours (Table) 09/28/20 21:38 Gram Stain - Final Sputum Sputum Culture - Final 09/27/20 18:00 Blood Culture - Preliminary Blood No Growth after 72 hours 09/28/20 09:19 Blood Culture - Preliminary Blood No Growth after 48 hours Assessment and Plan (1) Choledocholithiasis Narrative/Plan: 85-year-old male presenting to the hospital with complaints of right upper q uadrant abdominal pain. Previous imaging suggestive of choledocholithiasis on MRCP. Patient was taken for ERCP which was unsuccessful secondary to technical difficulty of the procedure due to patient's anatomy with the papilla unable to be cannulated. Currently on broad-spectrum antibiotic therapy the patient is scheduled to be transferred to tertiary center for evaluation by advanced endoscopy service. 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 Current Visit: Yes Status: Acute Code(s): K80.50 - CALCULUS OF BILE DUCT W/O CHOLANGITIS OR CHOLECYST W/O OBST SNOMED Code(s): 179491253 (2) Ascending cholangitis Current Visit: Yes Status: Acute Code(s): K83.09 - OTHER CHOLANGITIS SNOMED Code(s): 87771990 (3) E coli bacteremia Current Visit: Yes Status: Acute Code(s): R78.81 - BACTEREMIA; B96.20 - UNSP ESCHERICHIA COLI THE CAUSE OF DISEASES CLASSD ELSWHR SNOMED Code(s): 514389109840 (4) Elevated liver enzymes Current Visit: Yes Status: Acute Code(s): R74.8 - ABNORMAL LEVELS OF OTHER SERUM ENZYMES SNOMED Code(s): 002002993 (5) Ruptured spleen Narrative/Plan: General surgery following Current Visit: Yes Status: Acute Code(s): S36.09XA - OTHER INJURY OF SPLEEN, INITIAL ENCOUNTER SNOMED Code(s): 452256909 (6) Acute blood loss anemia Narrative/Plan: Computed tomography scan performed in evaluation of abdominal pain and fall in hemoglobin showing splenic laceration/rupture for which the patient was taken for splenectomy currently postop day #3 in the ICU. Current Visit: Yes Status: Acute Code(s): D62 - ACUTE POSTHEMORRHAGIC ANEMIA SNOMED Code(s): 454173235 Plan: 1. Continue supportive and symptomatic care 2. Diet per recommendations from surgical services 3. Continue to monitor CBC, CMP 4. Continue broad-spectrum antibiotic therapy 5. Continue postoperative care status post splenectomy 6. Patient will require follow-up with tertiary center for ERCP, either as transfer or in follow-up after discharge Thank you for this consultation, we will continue to follow Dr. Causey I agree with the dictator's note, documented as a scribe by Christa Galan.
--- NOTE | 2020-10-01 13:38 | P.PN ---
Subjective Progress Note Date: 10/01/20 CHIEF COMPLAINT: Right upper quadrant abdominal pain HISTORY OF PRESENT ILLNESS: Patient admitted to the hospital for ascending cholangitis. He was in transition for transfer to [facility] for def initive ERCP for common bile duct obstruction when he developed acute blood loss anemia and CT findings of ruptured spleen. Patient was taken to the OR and is status post splenectomy for ruptured spleen. Postop day #4. He is sitting up at bedside chair. He passes swallow eval. And has been started on a low-fat diet. He does have a decreased appetite. Denies any pain. Denies any nausea or vomiting. No bowel movement yet. Currently on 4 L satting at 94%. Afebrile. WBC is 13.6 hemoglobin 8.3 platelets 164 LFTs remain normal repeat blood cultures are negative. Patient is currently in the ICU but is downgraded to a MedSurg no telemetry. PHYSICAL EXAM: VITAL SIGNS: Reviewed. GENERAL: Well-developed in no acute distress. HEENT: No sclera icterus. Extraocular movements grossly intact. Moist buccal mucosa. Head is atraumatic, normocephalic. ABDOMEN: Soft. Abdominal binder in place. 2 ANDREA drains with serosanguineous output. NEUROLOGIC: Patient is intubated and sedated ASSESSMENT: 1. Acute splenic rupture of unclear etiology. Status post Exploratory laparotomy with extensive lysis of adhesions, open splenectomy, evacuation of hemoperitoneum, Application of incisional wound VAC system and Placement of Uriah-Grullon drains 2. Acute blood loss anemia due to splenic rupture 3. Ascending cholangitis with bacteremia 4. Symptomatic gallstone 5. Thrombocytopenia PLAN: -Will need immunizations for post-splenectomy management in 10 to 14 days, otherwise, 10/07/20 to 10/12/20. May also benefit from COVID vaccination. -Cholecystectomy deferred -Encourage incentive spirometry use -Continue PT OT -Continue antibiotics per ID -Continue full liquid diet Physician [employer] note has been reviewed by physician. Signing provider agrees with the documented findings, assessment, and plan of care. Objective - Vital Signs Vital signs: Vital Signs Temp 97.4 F L 10/01/20 08:00 Pulse 84 10/01/20 12:35 Resp 22 10/01/20 12:35 BP 168/66 10/01/20 08:00 Pulse Ox 94 L 10/01/20 08:00 Intake & Output 09/30/20 10/01/20 10/01/20 18:59 06:59 18:59 Intake Total 1020 650 50 Output Total 530 265 Balance 490 385 50 Weight 56 kg 56 kg Intake: IV 870 600 50 Ampicillin-Sulbactam 3 gm 100 In Sodium Chloride 0.9% 100 ml @ 200 mls/hr IVPB Q6HR [facility] Rx#:[id number] Dextrose 5% in Water 1, 550 600 50 000 ml @ 50 mls/hr IV . Q20H [facility] Rx#:[id number] Potassium Chloride 10 meq 200 In Water For Injection 1 100ml.bag @ 100 mls/hr IVPB Q1HR [facility] Rx#: [id number] Sodium Chloride 0.9% 1, 20 000 ml @ 20 mls/hr IV . Q24H [facility] Rx#:[id number] Oral 150 50 Output: Drainage 40 265 Left Abdomen 40 235 Right Abdomen 30 Urine 490 0 Other: Voiding Method External Catheter External Catheter # Voids 0 0 # Bowel Movements 1 ABP, PAP, CO, CI - Last Documented Arterial Blood Pressure 126/118 - Labs CBC & Chem 7: 10/01/20 03:25 10/01/20 10:49 Labs: Abnormal Lab Results - Last 24 Hours (Table) 10/01/20 10/01/20 10/01/20 Range/Units 03:25 03:25 10:49 WBC 13.6 H (3.8-10.6) k/uL RBC 2.78 L (4.30-5.90) m/uL Hgb 8.3 L (13.0-17.5) gm/dL Hct 25.9 L (39.0-53.0) % RDW 18.5 H (11.5-15.5) % Potassium 3.4 L (3.5-5.1) mmol/L Chloride 119 H (98-107) mmol/L Carbon Dioxide 19 L (22-30) mmol/L Calcium 7.6 L (8.4-10.2) mg/dL Total Protein 4.1 L (6.3-8.2) g/dL Albumin 2.1 L (3.5-5.0) g/dL Microbiology - Last 24 Hours (Table) 09/28/20 09:19 Blood Culture - Preliminary Blood No Growth after 72 hours 09/28/20 21:38 Gram Stain - Final Sputum Sputum Culture - Final 09/27/20 18:00 Blood Culture - Preliminary Blood No Growth after 72 hours
--- NOTE | 2020-10-01 17:46 | PN ---
PROGRESS NOTE DATE OF SERVICE: 10/01/2020 REASON FOR FOLLOWUP: E coli bacteremia, question of cholangitis and post splenectomy. INTERVAL HISTORY: The patient is afebrile. The patient remains to be pleasantly confused. No agitation has been reported. He is breathing comfortably on room air. No vomiting, diarrhea or other changes reported by nursing staff. The patient denies any chest pain or cough. Abdominal pain is currently controlled. PHYSICAL EXAMINATION: Blood pressure 168/66, pulse of 83, temperature is 97.4. He is 94% on 4 L nasal cannula. General description is an elderly male lying in bed in no distress. Respiratory system: Unlabored breathing, decreased breath sounds at the bases. No wheeze. Heart: S1, S2. Regular rate and rhythm. Abdomen soft, no tenderness. LABS: Hemoglobin 13.8, white count 13.6, BUN of 13, creatinine 0.86. DIAGNOSTIC IMPRESSION AND PLAN: Patient admitted to the hospital with dizziness, weakness, noticed to have splenic rupture status post splenectomy and was question of cholangitis. Patient did have E coli bacteremia. Repeat blood culture has been negative. Sputum is pending. Patient is on Unasyn, to continue. Slight worsening of the white count. Will monitor closely and continue supportive care. MMODL / IJN: [id number] /
[2020-10-01 21:33] LABS: Glucose,Whole Blood 119 mg/dL (75-99)
[2020-10-01] MEDS ORDERED: LORazepam 2 MG/ML INJ IM STA (22:03)
[2020-10-01] MEDS ORDERED: LORazepam 2 MG/ML INJ IV STA (22:16)
--- NOTE | 2020-10-01 22:43 | CT ---
EXAMINATION TYPE: CT brain wo con DATE OF EXAM: 10/01/2020 COMPARISON: None HISTORY: AMS/ Seizure CT DLP: 1349.4 mGycm Automated exposure control for dose reduction was used. There is cerebral cortical atrophy. There is no mass effect nor midline shift. There is no sign of in tracranial hemorrhage. The calvarium is intact. Skull base is intact. Mastoid sinuses appear normal. IMPRESSION: Cerebral atrophy. No acute intracranial abnormality.
[2020-10-02] MEDS: HYDROmorphone 0.5 MG/0.5 ML SYRINGE IVP PRN (00:20)
[2020-10-02 00:51] LABS: Anisocytosis Slight; Basophils # (A) 0.1 k/uL (0-0.2); Basophils % (A) 0 %; Eosinophils # (A) 0.1 k/uL (0-0.7); Eosinophils % (A) 1 %; HCT 25.5 % (39.0-53.0); HGB 8.2 gm/dL (13.0-17.5); Hypochromasia Slight; Lymphocytes # (A) 1.2 k/uL (1.0-4.8); Lymphocytes % (A) 6 %; MCH 30.7 pg (25.0-35.0); MCHC 32.3 g/dL (31.0-37.0); MCV 95.1 fL (80.0-100.0); Macrocytosis Slight; Mean Platelet Volume 9.4; Monocytes # (A) 0.6 k/uL (0-1.0); Monocytes % (A) 3 %; Neutrophils % (A) 89 %; Platelet Count 235 k/uL (150-450); RBC 2.68 m/uL (4.30-5.90); RDW 18.6 % (11.5-15.5); WBC 19.1 k/uL (3.8-10.6)
[2020-10-02 01:05] LABS: ALT 32 U/L (4-49); AST 43 U/L (17-59); African American GFR (CKD) >90 (>60 ml/min/1.73 sqM); Albumin 2.2 g/dL (3.5-5.0); Alkaline Phosphatase 94 U/L (38-126); Anion Gap 5 mmol/L; Blood Urea Nitrogen 14 mg/dL (9-20); Calcium 7.6 mg/dL (8.4-10.2); Carbon Dioxide 20 mmol/L (22-30); Chloride 118 mmol/L (98-107); Glucose 90 mg/dL (74-99); Non-African American GFR(CKD) 80 (>60 ml/min/1.73 sqM); Potassium 3.8 mmol/L (3.5-5.1); Sodium 143 mmol/L (137-145); Total Bilirubin 0.7 mg/dL (0.2-1.3); Total Protein 4.3 g/dL (6.3-8.2)
[2020-10-02] MEDS: POTASSIUM CHLORIDE 10 MEQ in WATER FOR INJECTION 1 100ML.BAG IVPB SCH (03:28)
[2020-10-02] MEDS: DEXTROSE 5% IN WATER 1,000 ML IV SCH ×2 (03:29→15:38)
--- NOTE | 2020-10-02 03:48 | P.EN ---
RN notified me of patient change in mental status Patient has been hospitalized for ascending chondritis and then he had ruptured spleen status post laparotomy postoperative postoperative day 3 Patient has been extubated on September 29 has been doing well on the ICU. As RN was about to transfer the patient to [address] [place] [address] he suddenly started becoming unresponsive and then having shaky myoclonus type jerky movements of bilateral lower extremities with increased muscle tone bilateral upper extremities and unresponsiveness During these episodes patient's vital signs remained stable with blood pressure elevated in the 170 range Lung exam audible breath sounds throughout coarse crackles Patient will have lucid periods between episodes of unresponsiveness and jerking motion of lower extremities, during the lucid periods patient mumbles words incomprehensible he denies any specific complaints. No tongue biting no loss of bladder or bowel control with these episodes Plan Altered mental status rule out seizures, metabolic encephalopathy CT of the brain without contrast, no acute pathology Patient was given one-time dose of Ativan to abort one of these episodes due to suspected seizure. I could not draw definite conclusion whether Ativan helped her no he had only one episode after giving the Ativan and seems like these episodes have subsided later Check EEG Follow-up labs, check ammonia level check CBC and CMP Check prolactin level which would be elevated to be having seizure episodes Keep patient in the ICU for close monitoring Total amount of critical care time spent was 45 minutes not counting procedures performed.
[2020-10-02 06:21] LABS: Anisocytosis Slight; Basophils # (A) 0.1 k/uL (0-0.2); Basophils % (A) 0 %; Eosinophils # (A) 0.2 k/uL (0-0.7); Eosinophils % (A) 1 %; HCT 26.8 % (39.0-53.0); HGB 8.6 gm/dL (13.0-17.5); Hypochromasia Slight; Lymphocytes # (A) 1.4 k/uL (1.0-4.8); Lymphocytes % (A) 7 %; MCH 30.6 pg (25.0-35.0); MCV 95.6 fL (80.0-100.0); Macrocytosis Slight; Mean Platelet Volume 9.5; Monocytes # (A) 0.5 k/uL (0-1.0); Monocytes % (A) 2 %; Neutrophils # (A) 16.8 k/uL (1.3-7.7); Neutrophils % (A) 88 %; Platelet Count 252 k/uL (150-450); RDW 18.6 % (11.5-15.5)
[2020-10-02 06:40] LABS: Calcium 7.6 mg/dL (8.4-10.2); Potassium 4.1 mmol/L (3.5-5.1)
[2020-10-02] MEDS: AMPICILLIN-SULBACTAM 3 GM in SODIUM CHLORIDE 0.9% 100 ML IVPB SCH (06:49)
--- NOTE | 2020-10-02 07:51 | XR ---
EXAMINATION TYPE: XR chest 1V portable DATE OF EXAM: 10/02/2020 HISTORY: Shortness of breath. COMPARISON: 10/01/2020 TECHNIQUE: Single view of the chest is submitted. FINDINGS: Demonstrated are scattered senescent parenchymal change. Airspace consolidation right upper lobe and left upper lobe has progressed in the interval. Continued progress studies are advised. The heart is stable. Hilar and mediastinal structures are within normal limits. Degenerative changes are seen of the dorsal spine. IMPRESSION: 1. Airspace consolidation right upper lobe and left upper lobe has progressed in the interval. Fany nued progress studies are advised.
[2020-10-02] MEDS: IPRATROPIUM-ALBUTEROL 3 ML NEB INHALATION SCH ×4 (08:32→20:48)
[2020-10-02] MEDS: FAMOTIDINE 20 MG/2 ML VIAL IV SCH (09:07)
[2020-10-02] MEDS: atenoloL 50 MG TAB PO SCH (09:07)
[2020-10-02] MEDS: methylPREDNISolone SOD SUCCI 40 MG/ML 1 ML VIAL IV SCH ×2 (09:07→17:15)
--- NOTE | 2020-10-02 10:17 | P.PN ---
Subjective Progress Note Date: 10/02/20 Principal diagnosis: Respiratory failure. This is an 85-year-old white male with 1 day history of right upper quadrant pain, presented initially to the hospital on 09/24/2020, patient was diagnosed as having choledocholithiasis and ascending cholangitis. Patient was seen by [facility] roenterology on consultation, and he underwent attempted ERCP, however the ERCP was difficult, and could not be diagnostic or therapeutic. This was done on 09/25, and according to the note by the brim molder multiple attempts were made to advance the scope into the duodenum and visualizing the ampullary orifice was not successful. Hence ERCP was not performed. The brim molder recommended referral to [facility] for ERCP. Surgery was consulted on the patient on 09/25/2020, and the patient was seen by Dr. Fried. He recommended laparoscopic cholecystectomy and this was supposed to be scheduled on 09/29/2020. In the meantime the patient was found to have E. coli bacteremia and he was on antibiotics all along. On 09/27/2020, patient was noted to have significant blood loss anemia, CT of the abdomen and pelvis showed splenic fracture. Hence Dr. Turcios saw the patient on consultation, and the patient underwent emergency exploratory laparotomy, extensive lysis of adhesions, open splenectomy with control of bleeding, evacuation of hemoperitoneum, application of a wound VAC system, placement of a ANDREA drain in the left splenic fossa and right at pelvis. Due to the emergency situation, open cholecystectomy was not performed, patient was transfused, required a total of 3 units of packed RBCs since his admission, and he also received 1 unit of platelets. Post surgery, patient was on mechanical ventilation, admitted to the ICU, and I was asked to see him on consultation. Patient is now on assist control rate of 14, volume of 450 FiO2 35% PEEP of 5 ABG showed a pO2 of 83 pCO2 of 30 pH of 7.45, patient was on bicarb drip which I discontinued. He is on pr opofol at 50 mcg/kg/m, norepinephrine at 0.01 mcg/kg/m, and I cut down his IV fluid since his chest x-ray is showing fluid overload and bilateral pleural effusions, and I would recommend gentle diuresis. Hemoglobin this morning is 7.4. His renal profile has improved in the last 24 hours. Creatinine was 1.3 to yesterday, and it is 1.16 today. A shunt didn't receive significant amount of fluids and blood products over the last 24 hours. During my evaluation, patient was fully sedated, and I have recommended holding the propofol, awakening the patient, give the patient at least a weaning trial, with pressure support and CPAP, and possibly proceed to extubation today. Progress note dated 09/29/2020. This an 85-year-old male who was admitted on September 24, for abdominal pain, nausea, and vomiting. The patient was discovered to have gallstones, and underwent an ERCP. Apparently the ERCP was not successful. Subsequent to that, the patient developed a splenic rupture. On September 27, the patient underwent exploratory laparotomy, lysis of adhesions, and splenectomy. For some unclear reason, a gallbladder was not removed. The patient remains on the ventilator, having been ventilated for the surgery on the . Currently, the patient is on the volume assist control mode, rate 14, tidal volume 450, FiO2 35%, and PEEP of 5. Blood gases show a PaO2 that is 361, a PaCO2 which is 35, pH is 7.4. I doubt the accuracy of the PaO2 on the blood gas. In addition, the patient's on propofol at 40 mcg/kg/m, and saline at KVO. No tube feeds. We will do a daily interruption of sedation, and possible spontaneous breathing trial with hopes of extubation. White count 14.1, hemoglobin 8.3, hematocrit 25.1, and platelet count 79,000. Sodium 143, potassium 3.3, chlorides 117, CO2 22, anion gap 4, BUN 23, and creatinine 1.09. Chest x-ray shows some bibasilar infiltrates and/or atelectasis. Progress note dated 09/30/2020. 85-year-old male who was admitted on September 24 for abdominal pain, nausea, and vomiting. The patient was discovered to have gallstones, and underwent an ERCP. Apparently the ERCP was unsuccessful. Subsequent to that, the patient developed a splenic rupture. On September 27, the patient underwent exploratory laparotomy, lysis of adhesions, and splenectomy. Gallbladder was not removed at that time. Yesterday, the patient was mechanically ventilated. Yesterday, the patient had an excellent weaning trial, after a daily interruption of sedation. The patient was extubated yesterday. He's currently on 3 L nasal cannula. And saline at KVO. He is doing reasonably well. His chest x-ray does show some bibasilar infiltrates or atelectasis and small effusions. He will need to deep breathe, cough, clear secretions, and using incentive spirometer. White count 10.8, hemoglobin 8.5, hematocrit 26.5, and platelet count 118,000. Sodium 146, potassium 3.5, chlorides 120, CO2 21, anion gap 5, BUN 15, creatinine 0.95. Progress note dated 10/01/2020. 85-year-old male who was admitted to the hospital on September 24 for abdominal pain, nausea, and vomiting. The patient underwent a ERCP, for gallstones, which was unsuccessful, and subsequent to that, developed a splenic rupture. On September 27, the patient underwent exploratory laparotomy, lysis of adhesions, and splenectomy. The gallbladder, at that time, was not removed. The patient was initially on the mechanical ventilator. He was extubated on September 29. Currently, he's on 2 L nasal cannula, and getting D5W at 50 mL an hour. Todays sodium is down to 145. In my opinion, the patient could be transferred to the general medical floor. White count 13.6, hemoglobin 8.3, hematocrit 25.9, and platelet count 164,000. Sodium 145, potassium 3.6, chlorides 119, CO2 19, BUN 13, and creatinine 0.86. Chest x-ray shows right lower lobe infiltrate/atelectasis. Blood sampling from September 25 shows Escherichia coli. The patient is currently on Unasyn as monotherapy. Progress note dated 10/02/2020. 85-year-old male was admitted to the hospital on September 24 for abdominal pain, nausea, and vomiting. The patient had an attempted ERCP, for gallstones, which was unsuccessful, and subsequently to that, developed a splenic rupture. On September 27, the patient underwent exploratory laparotomy, is is adhesions, and splenectomy. The gallbladder was not removed at that time. The patient was extubated from mechanical ventilation a couple days ago. He's currently on 3 L nasal cannula, and getting D5W at 50 mL mild hypernatremia. The patient was to leave the ICU and had a bed apparently, but last night, before he left the unit, he had an episode which may have included syncope and/or a seizure. For that reason, we're going to consult neurology. CAT scan of the brain was negative EGD was ordered. The patient's currently on Unasyn for E. coli bacteremia. In addition, the patient is quite bronchospastic, and will get some Pulmicort 1 mg, Perforomist, 20 g, and steroids. White count 19, hemoglobin 8.6, hematocrit 26.8, and platelet count 252,000. Sodium 143, potassium 4.1, chlorides 118, CO2 19, anion gap 6, with a BUN of 14 and a creatinine of 0.92. Chest x-ray today shows airspace consolidation in the right upper lobe and left upper lobe which is progressive. The patient may have aspirated. Objective - Vital Signs Vital signs: Vital Signs Temp 97.9 F 10/02/20 04:00 Pulse 90 10/02/20 08:45 Resp 38 H 10/02/20 07:00 BP 177/80 10/02/20 07:00 Pulse Ox 95 10/02/20 07:00 Intake & Output 10/01/20 10/02/20 10/02/20 18:59 06:59 18:59 Intake Total 900 Output Total 900 0 Balance 0 0 Weight 56 kg 56.3 kg Intake: IV 600 Dextrose 5% in Water 1, 600 000 ml @ 50 mls/hr IV . Q20H FAMILIA Rx#:[id number] Oral 300 Output: Urine 900 0 Other: Voiding Method Urinal Urinal # Voids 0 ABP, PAP, CO, CI - Last Documented Arterial Blood Pressure 126/118 - Exam No acute distress, currently on 3 L nasal cannula. The patient is a bit confused. HEENT examination is grossly unremarkable. Neck supple. Full range of motion. No adenopathy thyromegaly or neck vein distention. Cardiovascular examination reveals regular rhythm rate. S1-S2 normal. No S3 or S4. No discernible murmur noted. Heart sounds are distant. Heart rate about 90 bpm. Lungs reveal diffuse inspiratory and expiratory rhonchi and wheezes. The patient is quite bronchospastic. No crackles. Breath sounds are equal bilaterally. Abdomen is soft without bowel sounds. No masses or tenderness. Extremities are intact. No cyanosis clubbing or edema. Skin is without rash or lesion. Neurologic examination is brief but nonfocal. The patient appears to be a bit confused. - Labs CBC & Chem 7: 10/02/20 05:53 10/02/20 05:53 Labs: Abnormal Lab Results - Last 24 Hours (Table) 10/01/20 10/01/20 10/01/20 Range/Units 10:49 21:32 23:57 WBC 19.1 H (3.8-10.6) k/uL RBC 2.68 L (4.30-5.90) m/uL Hgb 8.2 L (13.0-17.5) gm/dL Hct 25.5 L (39.0-53.0) % RDW 18.6 H (11.5-15.5) % Neutrophils # 17.0 H (1.3-7.7) k/uL Potassium 3.4 L (3.5-5.1) mmol/L Chloride (98-107) mmol/L Carbon Dioxide (22-30) mmol/L POC Glucose (mg/dL) 119 H (75-99) mg/dL Calcium (8.4-10.2) mg/dL Total Protein (6.3-8.2) g/dL Albumin (3.5-5.0) g/dL 10/01/20 10/02/20 10/02/20 Range/Units 23:57 05:53 05:53 WBC 19.0 H (3.8-10.6) k/uL RBC 2.80 L (4.30-5.90) m/uL Hgb 8.6 L (13.0-17.5) gm/dL Hct 26.8 L (39.0-53.0) % RDW 18.6 H (11.5-15.5) % Neutrophils # 16.8 H (1.3-7.7) k/uL Potassium (3.5-5.1) mmol/L Chloride 118 H 118 H (98-107) mmol/L Carbon Dioxide 20 L 19 L (22-30) mmol/L POC Glucose (mg/dL) (75-99) mg/dL Calcium 7.6 L 7.6 L (8.4-10.2) mg/dL Total Protein 4.3 L (6.3-8.2) g/dL Albumin 2.2 L (3.5-5.0) g/dL Microbiology - Last 24 Hours (Table) 09/27/20 18:00 Blood Culture - Preliminary Blood No Growth after 96 hours 09/28/20 09:19 Blood Culture - Preliminary Blood No Growth after 72 hours 09/28/20 21:38 Gram Stain - Final Sputum Sputum Culture - Final Assessment and Plan Assessment: Status post exploratory laparotomy, splenectomy, and lysis of adhesions, on September 27, for splenic rupture, following ERCP, postop day #4. Postoperative routine mechanical ventilation, with successful extubation on September 29. Probable aspiration pneumonia, involving the right upper lobe in the left upper lobe, with significant bronchospasm. Questionable syncope/seizure, currently being evaluated by neurology. Escherichia coli bacteremia, secondary to acute ascending cholangitis, currently on Unasyn. Acute blood loss anemia, secondary to splenic rupture. Acute kidney injury, secondary to ATN. Postoperative bilateral pleural effusions, secondary to aggressive fluid management and administration of 3 units of PRBCs and 1 unit of platelets. History of hyperlipidemia. History of gout. History of hypertension. Plan: Plan dated 09/29/2020. The patient is currently still on the mechanical ventilator. We will do a daily interruption of sedation and a spontaneous breathing trial, and hope that the patient is ready for weaning and extubation. We will continue with antibiotics. The patient will continue on breathing treatments. The patient remains on Zosyn. Norepinephrine has been weaned off. The patient will continue on pain medication. Prognosis is guarded. Additional recommendations and suggestions to follow. We'll continue to follow make recommendations where appropriate. Plan dated 09/30/2020. The patient was successfully extubated yesterday. Remains on Zosyn as an antibiotic. The patient currently is on 3 L nasal cannula. I've encouraged the nurse to get the patient out of bed today and up in a chair. In addition, the patient needs to deep breathe, cough, and clear secretions, and also using incentive spirometer every hour. Also, we will switch his IV to D5W at 50 mL an hour. Additional recommendations and suggestions are forthcoming. Plan dated 10/01/2020. Currently, the patient's doing well. The patient needs to continue with deep breathing, coughing, and clearing his secretions. Likewise, the patient needs to use the incentive spirometer every hour. The patient remains on Unasyn as monotherapy for E. coli bacteremia. The patient's down to 2 L nasal cannula. His sodium is come down from 146 to 145 on D5W. The patient is stable for transfer to general medical floor without telemetry. Prognosis remains guarded. Plan dated 10/02/2020. The patient appeared to be quite bronchospastic, and the patient was placed on IV corticosteroids, Pulmicort, and Perforomist at usual doses. In addition, even though the CAT scan of the brain, was negative, patient will have an EEG, and neurology will see the patient. The patient's currently on Unasyn for E. coli bacteremia. He is getting D5W at 50 mL an hour. He is on 3 L nasal cannula. Prognosis is guarded. We will continue to follow make recommendations where appropriate. For the time being, the patient will stay in the intensive care unit. Time with Patient: Greater than 30
--- NOTE | 2020-10-02 10:17 | P.PN ---
Subjective Progress Note Date: 10/02/20 Principal diagnosis: pain 85-year-old male with a past medical history of hypertension and peripheral arterial disease. He had been found to have elevated liver enzymes and has been being worked up as an outpatient basis. Patient had a liver ultrasound and MRCP which suggested cholestasis with multiple gallstones. Patient presented to the emergency department on 09/24/20 with a chief complaint of right upper quadrant abdominal pain 1 day associated with nausea, vomiting, and diarrhea. Patient admitted under our services for acute ascending cholangitis with transaminitis and HERMELINDO. Abdominal ultrasound completed revealing numerous gallstones. He was found to have leukocytosis with a WBC count of 17.1, anemia with hemoglobin of 10.8, and thrombocytopenia with platelet count of 104,000, acute kidney injury with BUN of 38, creatinine 1.63, and GFR of 38 with baseline hemoglobin of 1.2. Patient was taken for ERCP on 09/[address] 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 Call was made to transfer center and patient was accepted for transfer at [facility] by Dr. Wolfe. Patient was awaiting a bed assignment for transfer to be completed. Blood cultures positive for E. coli, patient provided coverage with continued use of IV antibiotics: Zosyn. His hemoglobin acutely dropped on the morning of 09/27 from 9.5-6.7. This was confirmed on repeat blood draw. He was taken down for emergent CT abdomen and pelvis which showed splenic rupture with possible hemorrhage into the pelvis. Surgery was contacted and the patient emergently went to the OR. 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 2 ANDREA drains were placed. Patient return to the ICU intubated and was successfully extubated on 09/29 and did have some confusion. 10/02 Overnight events noted. Patient deteriorated. Was noted to be shaking overnight. Possible aspiration. He is currently hypoxic with desaturations in the 70s on low flow NC. His mental status is poor and not able to answer any questions or participate in a conversation. Objective - Vital Signs Vital signs: Vital Signs Temp 97.9 F 10/02/20 04:00 Pulse 90 10/02/20 08:45 Resp 38 H 10/02/20 07:00 BP 177/80 10/02/20 07:00 Pulse Ox 95 10/02/20 07:00 Intake & Output 10/01/20 10/02/20 10/02/20 18:59 06:59 18:59 Intake Total 900 Output Total 900 0 Balance 0 0 Weight 56 kg 56.3 kg Intake: IV 600 Dextrose 5% in Water 1, 600 000 ml @ 50 mls/hr IV . Q20H FAMILIA Rx#:[id number] Oral 300 Output: Urine 900 0 Other: Voiding Method Urinal Urinal # Voids 0 ABP, PAP, CO, CI - Last Documented Arterial Blood Pressure 126/118 - Exam General: moderate respiratory distress Derm: warm, dry Head: atraumatic, normocephalic, symmetric Eyes: EOMI, no lid lag, anicteric sclera Mouth: no lip lesion, mucus membranes moist Cardiovascular: S1S2 reg with grade 2 systolic ejection murmur, positive posterior tibial pulse bilateral, Lungs: Bilateral expiratory wheezing and rhonchi, no rales , no accessory muscle use Abdominal: soft, nondistended, +TTP diffusely, no appreciable organomegaly, dressing over midline incision, [address] with minimal serous sanguinous output. Ext: no gross muscle atrophy, no edema, no contractures Neuro: Moving all 4 extremities independently, no focal neuro deficits noted. - Labs CBC & Chem 7: 10/02/20 05:53 10/02/20 05:53 Labs: Abnormal Lab Results - Last 24 Hours (Table) 10/01/20 10/01/20 10/01/20 Range/Units 10:49 21:32 23:57 WBC 19.1 H (3.8-10.6) k/uL RBC 2.68 L (4.30-5.90) m/uL Hgb 8.2 L (13.0-17.5) gm/dL Hct 25.5 L (39.0-53.0) % RDW 18.6 H (11.5-15.5) % Neutrophils # 17.0 H (1.3-7.7) k/uL Potassium 3.4 L (3.5-5.1) mmol/L Chloride (98-107) mmol/L Carbon Dioxide (22-30) mmol/L POC Glucose (mg/dL) 119 H (75-99) mg/dL Calcium (8.4-10.2) mg/dL Total Protein (6.3-8.2) g/dL Albumin (3.5-5.0) g/dL 10/01/20 10/02/20 10/02/20 Range/Units 23:57 05:53 05:53 WBC 19.0 H (3.8-10.6) k/uL RBC 2.80 L (4.30-5.90) m/uL Hgb 8.6 L (13.0-17.5) gm/dL Hct 26.8 L (39.0-53.0) % RDW 18.6 H (11.5-15.5) % Neutrophils # 16.8 H (1.3-7.7) k/uL Potassium (3.5-5.1) mmol/L Chloride 118 H 118 H (98-107) mmol/L Carbon Dioxide 20 L 19 L (22-30) mmol/L POC Glucose (mg/dL) (75-99) mg/dL Calcium 7.6 L 7.6 L (8.4-10.2) mg/dL Total Protein 4.3 L (6.3-8.2) g/dL Albumin 2.2 L (3.5-5.0) g/dL Microbiology - Last 24 Hours (Table) 09/27/20 18:00 Blood Culture - Preliminary Blood No Growth after 96 hours 09/28/20 09:19 Blood Culture - Preliminary Blood No Growth after 72 hours 09/28/20 21:38 Gram Stain - Final Sputum Sputum Culture - Final Assessment and Plan Plan: Splenic rupture with acute blood loss anemia, thrombocytopenia, hypovolemic shock, resolved - s/p 3 units of pRBC and 1 unit of plt - surgery recs -Plan will be for immunization prior to discharge from hospital. Patient will need strep pneumonia vaccine, meningitis, and Haemophilus influenza B prior to discharge. Acute hypoxic respiratory failure/HCAP - Possible aspiration - Bronchodilators, steroids started by pulm - Currently on unasyn, d/w ID, will switch to zosyn Metabolic encephalopathy possible seizure. - Check EEG - Neuro consult Acute ascending cholangitis with E. coli bacteremia -Outpatient MRCP revealed choledocholithiasis with possible obstructive jaundice pattern. -Patient was taken for ERCP on 09/25/[address] Tumma, however it was reported that scope could not be advanced. D/W Dr. Yuen will manage gallbladder as an outpatient at this time, no need for transfer. -Repeat blood cultures are negative to date -on Unasyn, ID recs Hypernatremia -Resolved. Acute kidney injury, resolved - baseline creatinine of 1.2. -Hold nephrotoxic medications -Continue to hold lisinopril secondary to recent hypotension requiring norepinephrine. Hypertension -With recent hypotension -atenolol -hold lisinopril -Follow blood pressures Acute post-op respiratory, resolved - failed swallow study--keep NPO DVT prophylaxis: SCDs Discussed with: nursing Anticipated discharge: undetermined Anticipated discharge place: undetermined A total of 34 minutes was spent on the care of this complex patient more than 50% of the time was spent in counseling and care coordination.
--- NOTE | 2020-10-02 10:52 | P.CNNES ---
History of Present Illness Consult date: 10/02/20 Requesting physician: Grazyna Gore Reason for Consult: questionable seizure, AMS History of Present Illness: This is an 85-year-old gentleman with medical history of hypertension, hyperlipidemia who presented emergency department on 09/24/2020 for abdominal pain, nausea and vomiting. Neurology is consulted because of the possible seizure and altered mental status. History is obtained from medical record. During the hospital stay, patient underwent ERCP for gallstone but was unsuccessful and therefore developed splenic rupture. The patient the was diagnosed of having choledocholithiasis and ascending cholangitis. CT of the abdomen and pelvis showed splenic fracture. On September 27 patient underwent exploratory laparotomy, lysis of adhesion and splenectomy. The gallbladder was not removed. During the hospital stay the patient was transfused 3 units of red blood cell since his admission and 1 unit of platelet. Postsurgically the patient was intubated on mechanical ventilation. The patient was extubated on September 29. Then per medical records, on 10/01/2020 patient started becoming unresponsive and having shaken mild clonus-type the jerking movement of bilateral lower extremity and increased muscle tone of bilateral upper extremity. During these episodes it is reported the blood pressure is 170 sytolic. During these episodes the patient will mumbling words and was incomprehensive. Patient was given 1 mg Ativan. Per the ICU nurse what transpired on the 10/01/2020 the patient was going from ICU to the floors and wall he was being transferred the and being placed on a floor bed and he had this episode that. Per the patient's ICU nurse, she stated that the patient is appropriate but is somewhat confused during the hospital hospital stay. The ICU nurse stated that she had this patient not only today but she had a prior and that she said that for the last 3 days in the ICU unit had the intermittent jerking of the left lower extremity lasting for seconds to about a minute but during these episodes he is responsive.. She has not noticed any foaming around the mouth, she denies any gaze deviation that she appreciated during these episodes. She stated that may be ill B has a blister during initially this episode but when the she sees that he has to jerk he is responsive and following commands. The patient the had the left lower extremity jerking episode that today per the ICU nurse lasting less than a minute and again he was responsive. Some other workup in the hospital consisted of: Most recent vital signs is blood pressure of 177/80 with a heart rate of 86 and respiratory of 38 area most recent temperature is 97.9 Fahrenheit axillary. Patient has been afebrile during his hospital stay. CT of the head on 10/01/2020 is reported as cerebral atrophy. No acute intracranial abnormality. Most recent CBC with differential is white blood cell was 19 and it's predominantly neutrophilic. The hemoglobin is 8.6 hematocrit 26.8. Most recent chemistry panel as the glucose 98 was considered within normal limits and a creatinine is 0.92, sodium is 143, most recent the AST is 43 and ALT is 32 which is considered within normal limits. Ammonia level less than 9. Review of Systems Review of system: The 12 point system was reviewed and apparent positive and negative per HPI. 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 LEFT LEG GRAFT History of Any Multi-Drug Resistant Organisms: None Reported Past Surgical History: Hernia Repair Additional Past Surgical History / Comment(s): AORTO-BIFEMORAL GRAFT LEFT SIDE Past Anesthesia/Blood Transfusion Reactions: No Reported Reaction Past Psychological History: No Psychological Hx Reported Past Alcohol Use History: Daily - Past Family History Brother(s) Family Medical History: Cancer Sister(s) Family Medical History: Cancer Medications and Allergies Home Medications Medication Instructions Recorded Confirmed Type Furosemide [Lasix] 40 mg PO DAILY 05/05/15 09/24/20 History allopurinoL [Zyloprim] 100 mg PO DAILY 05/05/15 09/24/20 History atenoloL [Tenormin] 50 mg PO DAILY 05/05/15 09/24/20 History lisinopriL 40 mg PO DAILY 05/05/15 09/24/20 History Atorvastatin Calcium [Lipitor] 80 mg PO DAILY 06/08/18 09/24/20 History Allergies Allergy/AdvReac Type Severity Reaction Status Date / Time No Known Allergies Allergy Verified 09/24/20 23:11 Physical Examination - Vital Signs Vital Signs: Vital Signs Temp Pulse Pulse Resp BP BP Pulse Ox 10/02/20 08:45 90 10/02/20 08:33 90 10/02/20 07:00 86 38 H 177/80 95 10/02/20 06:00 84 38 H 178/71 94 L 10/02/20 05:00 82 34 H 174/57 95 10/02/20 04:00 97.9 F 77 78 27 H 166/62 95 10/02/20 03:00 80 35 H 149/62 94 L 10/02/20 02:00 80 23 177/69 10/02/20 01:00 85 26 H 174/65 95 10/02/20 00:00 98.2 F 90 42 H 173/63 95 10/01/20 23:00 90 29 H 135/69 94 L 10/01/20 22:00 87 35 H 131/62 10/01/20 21:00 139/105 10/01/20 20:50 82 10/01/20 20:37 80 139/105 10/01/20 20:00 96 18 139/105 10/01/20 16:06 82 10/01/20 15:52 80 10/01/20 15:00 141/74 10/01/20 14:00 97.7 F 78 19 141/74 93 L 10/01/20 12:35 84 22 10/01/20 12:26 82 22 Intake and Output 10/01/20 10/02/20 10/02/20 22:59 06:59 14:59 Intake Total 850 Output Total 900 0 Balance -50 0 Intake: IV 550 Dextrose 5% in Water 1, 550 000 ml @ 50 mls/hr IV . Q20H [facility] Rx#:[id number] Oral 300 Output: Urine 900 0 Other: Voiding Method Urinal Urinal Weight 56.3 kg GENERAL: The patient is lying in bed and is not in acute distress. CHEST: The heart rate is regular rate rhythm. No murmurs to auscultation. No carotid bruit bilaterally. LUNG: Clear to auscultation bilaterally no wheezing noted throughout. Not labored breathing. ABDOMEN/GI: Bowel sounds present in all 4 quadrants. No tenderness to palpation throughout. NEUROLOGICAL: Higher mental function: The patient is slightly drowsy but awakeable to voice, oriented to self and time. Does not respond to place and said he is here "watching t.v.". Able to identify objects such as pen and watch. Patient is following commands. No aphasia and no neglect. Cranial nerves: The pupils are round, equal and reactive to light. Visual bello are full to confrontation throughout. Extraocular movement is intact no nystagmus is noted. Facial sensation is normal to touch throughout. The facial strength is normal throughout. Hearing is moderate to severely decrease bilaterally hand rub. Tongue is midline and moved [id number] without any difficulty. Mild to moderate dysarthria is noted. Shoulder shrug is normal bilaterally. Motor: The strength is 5 over 5 throughout. Normal tone and bulk. Cerebellum: Normal finger to nose bilaterally. Sensation: Sensation is normal to touch throughout. Reflexes (right/left):2+ throughout except patellar are 3+ bilaterally. Plantars are downgoing bilaterally. Results - Laboratory Findings CBC and BMP: 10/02/20 05:53 10/02/20 05:53 Abnormal Lab Findings: Abnormal Labs 09/24/20 09/24/20 09/24/20 20:21 20:21 20:21 WBC 17.9 H RBC Hgb Hct RDW 16.8 H Plt Count 129 L Neutrophils # Neutrophils # (Manual) 17.10 H Lymphocytes # Lymphocytes # (Manual) 0.72 L Monocytes # (Manual) PT INR ABG pH ABG pCO2 ABG pO2 ABG HCO3 ABG Total CO2 ABG O2 Saturation Sodium Potassium Chloride 109 H Carbon Dioxide 19 L BUN 35 H Creatinine 1.68 H Glucose POC Glucose (mg/dL) Plasma Lactic Acid Nima 3.8 H* Calcium Ionized Calcium Maurisio Magnesium 1.5 L Total Bilirubin 2.9 H AST 602 H ALT 410 H Alkaline Phosphatase 200 H Total Protein 5.9 L Albumin 3.4 L Urine Protein Urine Blood Urine WBC Amorphous Sediment Urine Bacteria Hyaline Casts Crossmatch 09/25/20 09/25/20 09/25/20 01:13 05:12 05:12 WBC 17.1 H RBC 3.54 L Hgb 10.8 L Hct 32.8 L RDW 16.9 H Plt Count 104 L Neutrophils # 15.7 H Neutrophils # (Manual) Lymphocytes # 0.9 L Lymphocytes # (Manual) Monocytes # (Manual) PT INR ABG pH ABG pCO2 ABG pO2 ABG HCO3 ABG Total CO2 ABG O2 Saturation Sodium 135 L Potassium Chloride 109 H Carbon Dioxide 20 L BUN 38 H Creatinine 1.63 H Glucose POC Glucose (mg/dL) Plasma Lactic Acid Nima Calcium 8.0 L Ionized Calcium Maurisio Magnesium Total Bilirubin 2.4 H AST 337 H ALT 298 H Alkaline Phosphatase 152 H Total Protein 4.7 L Albumin 2.5 L Urine Protein 1+ H Urine Blood Trace H Urine WBC 61 H Amorphous Sediment Rare H Urine Bacteria Rare H Hyaline Casts 3 H Crossmatch 09/25/20 09/25/20 09/25/20 05:12 08:59 11:01 WBC RBC Hgb Hct RDW Plt Count Neutrophils # Neutrophils # (Manual) Lymphocytes # Lymphocytes # (Manual) Monocytes # (Manual) PT 12.1 H INR 1.2 H ABG pH ABG pCO2 ABG pO2 ABG HCO3 ABG Total CO2 ABG O2 Saturation Sodium Potassium Chloride Carbon Dioxide BUN Creatinine Glucose POC Glucose (mg/dL) Plasma Lactic Acid Nima Calcium Ionized Calcium Maurisio Magnesium 3.0 H 2.9 H Total Bilirubin AST ALT Alkaline Phosphatase Total Protein Albumin Urine Protein Urine Blood Urine WBC Amorphous Sediment Urine Bacteria Hyaline Casts Crossmatch 09/26/20 09/26/20 09/26/20 08:31 08:31 10:37 WBC RBC 3.08 L Hgb 9.5 L Hct 28.8 L RDW 16.9 H Plt Count 78 L Neutrophils # 8.9 H Neutrophils # (Manual) Lymphocytes # 0.6 L Lymphocytes # (Manual) Monocytes # (Manual) PT INR ABG pH ABG pCO2 ABG pO2 ABG HCO3 ABG Total CO2 ABG O2 Saturation Sodium Potassium Chloride 112 H Carbon Dioxide 20 L BUN 48 H Creatinine 1.90 H Glucose POC Glucose (mg/dL) 180 H Plasma Lactic Acid Nima Calcium 7.7 L Ionized Calcium Maurisio Magnesium Total Bilirubin AST 117 H ALT 174 H Alkaline Phosphatase Total Protein 4.2 L Albumin 2.2 L Urine Protein Urine Blood Urine WBC Amorphous Sediment Urine Bacteria Hyaline Casts Crossmatch 09/27/20 09/27/20 09/27/20 07:50 07:50 10:45 WBC RBC 2.19 L Hgb 6.7 L* D Hct 20.8 L RDW 17.0 H Plt Count 73 L Neutrophils # Neutrophils # (Manual) Lymphocytes # Lymphocytes # (Manual) Monocytes # (Manual) PT INR ABG pH ABG pCO2 ABG pO2 ABG HCO3 ABG Total CO2 ABG O2 Saturation Sodium Potassium Chloride 116 H Carbon Dioxide 17 L BUN 49 H Creatinine 1.79 H Glucose POC Glucose (mg/dL) Plasma Lactic Acid Nima Calcium 7.8 L Ionized Calcium Maurisio Magnesium Total Bilirubin AST ALT Alkaline Phosphatase Total Protein Albumin Urine Protein Urine Blood Urine WBC Amorphous Sediment Urine Bacteria Hyaline Casts Crossmatch See Detail 09/27/20 09/27/20 09/27/20 10:45 10:45 15:13 WBC 11.0 H RBC 2.12 L 2.79 L Hgb 6.6 L* 8.8 L D Hct 20.5 L 25.3 L RDW 17.0 H 16.7 H Plt Count 82 L 62 L Neutrophils # Neutrophils # (Manual) Lymphocytes # 0.9 L Lymphocytes # (Manual) Monocytes # (Manual) PT INR ABG pH ABG pCO2 ABG pO2 ABG HCO3 ABG Total CO2 ABG O2 Saturation Sodium Potassium Chloride Carbon Dioxide BUN Creatinine Glucose POC Glucose (mg/dL) Plasma Lactic Acid Nima Calcium Ionized Calcium Maurisio Magnesium Total Bilirubin AST 68 H ALT 116 H Alkaline Phosphatase Total Protein Albumin Urine Protein Urine Blood Urine WBC Amorphous Sediment Urine Bacteria Hyaline Casts Crossmatch 09/27/20 09/27/20 09/27/20 16:31 16:51 18:00 WBC RBC 2.76 L Hgb 8.6 L Hct 24.9 L RDW 16.7 H Plt Count 59 L Neutrophils # Neutrophils # (Manual) Lymphocytes # Lymphocytes # (Manual) Monocytes # (Manual) PT INR ABG pH 7.20 L ABG pCO2 ABG pO2 324 H ABG HCO3 15 L ABG Total CO2 17 L ABG O2 Saturation 99.5 H Sodium Potassium Chloride Carbon Dioxide BUN Creatinine Glucose POC Glucose (mg/dL) 118 H Plasma Lactic Acid Nima Calcium Ionized Calcium Maurisio Magnesium Total Bilirubin AST ALT Alkaline Phosphatase Total Protein Albumin Urine Protein Urine Blood Urine WBC Amorphous Sediment Urine Bacteria Hyaline Casts Crossmatch 09/27/20 09/27/20 09/28/20 18:00 22:57 04:00 WBC 11.4 H RBC 2.34 L Hgb 7.4 L Hct 20.7 L RDW 17.2 H Plt Count 73 L Neutrophils # 9.9 H Neutrophils # (Manual) Lymphocytes # 0.7 L Lymphocytes # (Manual) Monocytes # (Manual) PT INR ABG pH ABG pCO2 33 L ABG pO2 219 H ABG HCO3 20 L ABG Total CO2 ABG O2 Saturation 99.7 H Sodium Potassium Chloride 121 H Carbon Dioxide 19 L BUN 39 H Creatinine 1.32 H Glucose 135 H POC Glucose (mg/dL) Plasma Lactic Acid Nima Calcium 6.6 L Ionized Calcium Maurisio Magnesium Total Bilirubin 1.6 H AST ALT 86 H Alkaline Phosphatase Total Protein 3.7 L Albumin 1.8 L Urine Protein Urine Blood Urine WBC Amorphous Sediment Urine Bacteria Hyaline Casts Crossmatch 09/28/20 09/28/20 09/28/20 04:00 04:50 05:39 WBC RBC Hgb Hct RDW Plt Count Neutrophils # Neutrophils # (Manual) Lymphocytes # Lymphocytes # (Manual) Monocytes # (Manual) PT INR ABG pH ABG pCO2 30 L ABG pO2 ABG HCO3 ABG Total CO2 ABG O2 Saturation 97.5 H Sodium Potassium 3.4 L Chloride 119 H Carbon Dioxide 19 L BUN 35 H Creatinine Glucose 138 H POC Glucose (mg/dL) Plasma Lactic Acid Nima Calcium 6.4 L* Ionized Calcium Maurisio 4.2 L Magnesium Total Bilirubin AST ALT 67 H Alkaline Phosphatase Total Protein 3.6 L Albumin 1.8 L Urine Protein Urine Blood Urine WBC Amorphous Sediment Urine Bacteria Hyaline Casts Crossmatch 09/29/20 09/29/20 09/29/20 00:01 03:30 03:30 WBC 14.1 H RBC 2.86 L Hgb 8.3 L Hct 25.1 L RDW 18.6 H Plt Count 79 L Neutrophils # 11.1 H Neutrophils # (Manual) Lymphocytes # Lymphocytes # (Manual) Monocytes # (Manual) PT INR ABG pH ABG pCO2 ABG pO2 ABG HCO3 ABG Total CO2 ABG O2 Saturation Sodium Potassium 3.3 L Chloride 117 H Carbon Dioxide BUN 23 H Creatinine Glucose POC Glucose (mg/dL) 107 H Plasma Lactic Acid Nima Calcium 7.0 L Ionized Calcium Maurisio Magnesium Total Bilirubin AST 61 H ALT 53 H Alkaline Phosphatase Total Protein 3.6 L Albumin 1.8 L Urine Protein Urine Blood Urine WBC Amorphous Sediment Urine Bacteria Hyaline Casts Crossmatch 09/29/20 09/30/20 09/30/20 05:52 03:23 03:23 WBC 10.8 H RBC 2.93 L Hgb 8.5 L Hct 26.5 L RDW 18.4 H Plt Count 118 L Neutrophils # Neutrophils # (Manual) 7.78 H Lymphocytes # Lymphocytes # (Manual) Monocytes # (Manual) 1.08 H PT INR ABG pH ABG pCO2 ABG pO2 361 H ABG HCO3 ABG Total CO2 ABG O2 Saturation 99.9 H Sodium 146 H Potassium Chloride 120 H Carbon Dioxide 21 L BUN Creatinine Glucose POC Glucose (mg/dL) Plasma Lactic Acid Nima Calcium 7.7 L Ionized Calcium Maurisio Magnesium Total Bilirubin AST ALT Alkaline Phosphatase Total Protein 4.1 L Albumin 2.1 L Urine Protein Urine Blood Urine WBC Amorphous Sediment Urine Bacteria Hyaline Casts Crossmatch 10/01/20 10/01/20 10/01/20 03:25 03:25 10:49 WBC 13.6 H RBC 2.78 L Hgb 8.3 L Hct 25.9 L RDW 18.5 H Plt Count Neutrophils # Neutrophils # (Manual) Lymphocytes # Lymphocytes # (Manual) Monocytes # (Manual) PT INR ABG pH ABG pCO2 ABG pO2 ABG HCO3 ABG Total CO2 ABG O2 Saturation Sodium Potassium 3.4 L Chloride 119 H Carbon Dioxide 19 L BUN Creatinine Glucose POC Glucose (mg/dL) Plasma Lactic Acid Nima Calcium 7.6 L Ionized Calcium Maurisio Magnesium Total Bilirubin AST ALT Alkaline Phosphatase Total Protein 4.1 L Albumin 2.1 L Urine Protein Urine Blood Urine WBC Amorphous Sediment Urine Bacteria Hyaline Casts Crossmatch 10/01/20 10/01/20 10/01/20 21:32 23:57 23:57 WBC 19.1 H RBC 2.68 L Hgb 8.2 L Hct 25.5 L RDW 18.6 H Plt Count Neutrophils # 17.0 H Neutrophils # (Manual) Lymphocytes # Lymphocytes # (Manual) Monocytes # (Manual) PT INR ABG pH ABG pCO2 ABG pO2 ABG HCO3 ABG Total CO2 ABG O2 Saturation Sodium Potassium Chloride 118 H Carbon Dioxide 20 L BUN Creatinine Glucose POC Glucose (mg/dL) 119 H Plasma Lactic Acid Nima Calcium 7.6 L Ionized Calcium Maurisio Magnesium Total Bilirubin AST ALT Alkaline Phosphatase Total Protein 4.3 L Albumin 2.2 L Urine Protein Urine Blood Urine WBC Amorphous Sediment Urine Bacteria Hyaline Casts Crossmatch 10/02/20 10/02/20 05:53 05:53 WBC 19.0 H RBC 2.80 L Hgb 8.6 L Hct 26.8 L RDW 18.6 H Plt Count Neutrophils # 16.8 H Neutrophils # (Manual) Lymphocytes # Lymphocytes # (Manual) Monocytes # (Manual) PT INR ABG pH ABG pCO2 ABG pO2 ABG HCO3 ABG Total CO2 ABG O2 Saturation Sodium Potassium Chloride 118 H Carbon Dioxide 19 L BUN Creatinine Glucose POC Glucose (mg/dL) Plasma Lactic Acid Nima Calcium 7.6 L Ionized Calcium Maurisio Magnesium Total Bilirubin AST ALT Alkaline Phosphatase Total Protein Albumin Urine Protein Urine Blood Urine WBC Amorphous Sediment Urine Bacteria Hyaline Casts Crossmatch Assessment and Plan Assessment: * Episode of reported myoclonic seizure-like on 10/01/2020 and episodes of intermittent focal motor jerking of the left lower extremity (but responsive for jerking of leg). Seems suspicious for seizure. Possibly provoked from underlying sepsis/metabolic. No documented history of seizure * Altered mental status due to septic encephalopathy--mentation improving * E. coli bacteremia secondary due to acute ascending cholangitis * Status post exposure laparotomy, splenectomy and lysis of adhesion for splenic rupture on 09/27/2020 * Acute blood loss anemia secondary due to splenic rupture * History of hypertension * History of hyperlipidemia Plan: An EEG is ordered stat and is pending. I started the patient on Keppra 500mg 1 tab bid. If EEG does not capture his jerking of left leg then would recommend prolonged EEG as outpatient (if jerking of legs are captured and no epileptiform or seizure on the EEG then recommend discontinuing seizure medication). Consider MRI Brain once patient is stable. I ordered ionized calcium and TSH. If ionized calcium is low then will defer management to ICU and primary team. Infection disease team is on board. We'll defer the rest of the medical management to the primary team and ICU team. The plan is discussed with the patient's nurse. Thank you for the consultation. Satya Garcia M.D. Neuro-hospitalist Time with Patient: Greater than 30
[2020-10-02] MEDS ORDERED: levETIRAcetam 500 MG TAB PO SCH (11:00)
[2020-10-02 11:18] LABS: Ionized Calcium 4.9 mg/dL (4.5-5.3)
--- NOTE | 2020-10-02 11:26 | P.PN ---
Subjective Progress Note Date: 10/02/20 CHIEF COMPLAINT: Right upper quadrant abdominal pain HISTORY OF PRESENT ILLNESS: Patient admitted to the hospital for ascending cholangitis. He was in transition for transfer to [facility] for def initive ERCP for common bile duct obstruction when he developed acute blood loss anemia and CT findings of ruptured spleen. Patient was taken to the OR and is status post splenectomy for ruptured spleen. Postop day #5. Patient was to be transferred out of the ICU yesterday to [facility] floor. He had an episode of unresponsiveness and possible seizure. He was given Ativan. Neurology is on consult. He remains in the ICU. Computed tomography scan of the brain was negative. He is scheduled for EEG. Afebrile. Patient's oxygen saturation is now up to 13 L. He does sound congested. Upon her service to start patient on IV Solu-Medrol. Pulmonary service concern for aspiration. Patient is currently nothing by mouth PHYSICAL EXAM: VITAL SIGNS: Reviewed. GENERAL: Well-developed in no acute distress. HEENT: No sclera icterus. Extraocular movements grossly intact. Moist buccal mucosa. Head is atraumatic, normocephalic. ABDOMEN: Soft. Abdominal binder in place. 2 ANDREA drains with serosanguineous output. NEUROLOGIC: Sleeping ASSESSMENT: 1. Acute splenic rupture of unclear etiology. Status post Exploratory laparotomy with extensive lysis of adhesions, open splenectomy, evacuation of hemoperitoneum, Application of incisional wound VAC system and Placement of Uriah-Grullon drains 2. Acute blood loss anemia due to splenic rupture 3. Ascending cholangitis with bacteremia 4. Symptomatic gallstone 5. Thrombocytopenia PLAN: -Continue ICU management and supportive care -Will need immunizations for post-splenectomy management in 10 to 14 days, otherwise, 10/07/20 to 10/12/20. May also benefit from COVID vaccination. -Cholecystectomy deferred -Encourage incentive spirometry use -Continue antibiotics per ID Physician Mortgage Closer note has been reviewed by physician. Signing provider agrees with the documented findings, assessment, and plan of care. Objective - Vital Signs Vital signs: Vital Signs Temp 97.9 F 10/02/20 04:00 Pulse 90 10/02/20 08:45 Resp 38 H 10/02/20 07:00 BP 177/80 10/02/20 07:00 Pulse Ox 95 10/02/20 07:00 Intake & Output 10/01/20 10/02/20 10/02/20 18:59 06:59 18:59 Intake Total 900 Output Total 900 0 Balance 0 0 Weight 56 kg 56.3 kg Intake: IV 600 Dextrose 5% in Water 1, 600 000 ml @ 50 mls/hr IV . Q20H [facility] Rx#:[id number] Oral 300 Output: Urine 900 0 Other: Voiding Method Urinal Urinal # Voids 0 ABP, PAP, CO, CI - Last Documented Arterial Blood Pressure 126/118 - Labs CBC & Chem 7: 10/02/20 05:53 10/02/20 05:53 Labs: Abnormal Lab Results - Last 24 Hours (Table) 10/01/20 10/01/20 10/01/20 Range/Units 21:32 23:57 23:57 WBC 19.1 H (3.8-10.6) k/uL RBC 2.68 L (4.30-5.90) m/uL Hgb 8.2 L (13.0-17.5) gm/dL Hct 25.5 L (39.0-53.0) % RDW 18.6 H (11.5-15.5) % Neutrophils # 17.0 H (1.3-7.7) k/uL Chloride 118 H (98-107) mmol/L Carbon Dioxide 20 L (22-30) mmol/L POC Glucose (mg/dL) 119 H (75-99) mg/dL Calcium 7.6 L (8.4-10.2) mg/dL Total Protein 4.3 L (6.3-8.2) g/dL Albumin 2.2 L (3.5-5.0) g/dL 10/02/20 10/02/20 Range/Units 05:53 05:53 WBC 19.0 H (3.8-10.6) k/uL RBC 2.80 L (4.30-5.90) m/uL Hgb 8.6 L (13.0-17.5) gm/dL Hct 26.8 L (39.0-53.0) % RDW 18.6 H (11.5-15.5) % Neutrophils # 16.8 H (1.3-7.7) k/uL Chloride 118 H (98-107) mmol/L Carbon Dioxide 19 L (22-30) mmol/L POC Glucose (mg/dL) (75-99) mg/dL Calcium 7.6 L (8.4-10.2) mg/dL Total Protein (6.3-8.2) g/dL Albumin (3.5-5.0) g/dL Microbiology - Last 24 Hours (Table) 09/27/20 18:00 Blood Culture - Preliminary Blood No Growth after 96 hours 09/28/20 09:19 Blood Culture - Preliminary Blood No Growth after 72 hours 09/28/20 21:38 Gram Stain - Final Sputum Sputum Culture - Final
[2020-10-02] MEDS: PIPERACILLIN-TAZOBACTAM 3.375 GM in SODIUM CHLORIDE 0.9% 100 ML IVPB SCH ×2 (15:37)
--- NOTE | 2020-10-02 16:42 | PN ---
PROGRESS NOTE REASON FOR FOLLOWUP: E coli bacteremia, possible cholangitis and aspiration pneumonia. INTERVAL HISTORY: The patient apparently did have worsening of his respiratory status and concern for possible aspiration. Patient remained n.p.o. The patient is hemodynamically stable, not on pressor support. The patient remains to be pleasantly confused, unable to provide any history. No vomiting, diarrhea, other changes reported by nursing staff. PHYSICAL EXAMINATION: Blood pressure 135/72 with a pulse of 90, temperature 97.4. He is 95% on 13 L nasal cannula. GENERAL DESCRIPTION: Is an elderly male up in the chair in no distress. RESPIRATORY SYSTEM: Unlabored breathing. Coarse breath sounds bilaterally. No wheeze. HEART S1, S2. Regular rate and rhythm. [place]S: [place] [address], BUN of 14, creatinine 0.92. DIAGNOSTIC IMPRESSION AND PLAN: Patient in the hospital with weakness in this patient who did have a splenic rupture status post splenectomy, also with concern for cholangitis with an E coli bacteremia. While the patient was on Unasyn, seemed to have worsening of his respiratory status. Concern for possible aspiration. Bactrim has been broadened to Zosyn. Try to obtain a sputum and monitor his clinical course closely. MMODL / IJN: [id number] /
[2020-10-02] MEDS: levETIRAcetam IV 500 MG in SODIUM CHLORIDE 0.9% 100 ML IVPB SCH (17:15)
--- NOTE | 2020-10-02 18:13 | EEG ---
ELECTROENCEPHALOGRAM REPORT DATE OF SERVICE: 10/02/2020 CLINICAL HISTORY: This is an 85-year-old gentleman that had a seizure-like episode on 10/01/2020. The video EEG is obtained to evaluate for seizure or epileptiform activity. RELEVANT MEDICATION: Keppra. EEG TYPE: A routine 21-channel EEG is performed with video using the 10/20 electrode placement system. DESCRIPTION: Wakefulness is obtained. During wakefulness, the background consists of 7-8 hertz that is a [id number] voltage, is poorly sustained, poorly modulated. No sleep architecture is seen. There is significant diffuse myogenic artifact. There is no focal slowing. Interictal and ictal is none. ACTIVATION PROCEDURE: Photic stimulation did not evoke a positive driving response. There is no abnormality during photic stimulation. Hyperventilation is not performed. CLINICAL INTERPRETATION: This is an abnormal routine EEG. The background slowing is suggestive of mild encephalopathy. There are no focal slowing, epileptiform discharges or seizure on the EEG. Clinical correlation is recommended. DEVON / VITON: [id number] / [id number]
[2020-10-02 18:26] LABS: Prolactin 5.7 ng/mL (2.1-17.7)
[2020-10-02] MEDS ORDERED: MIDODRINE 5 MG TAB PO SCH (20:30)
[2020-10-02] MEDS: BUDESONIDE 1 MG/2 ML NEBU INHALATION SCH (20:47)
[2020-10-02] MEDS: FORMOTEROL FUMARATE 20 MCG/2 ML NEBU INHALATION SCH (20:47)
[2020-10-03] MEDS: methylPREDNISolone SOD SUCCI 40 MG/ML 1 ML VIAL IV SCH ×4 (01:00→23:30)
[2020-10-03] MEDS: PIPERACILLIN-TAZOBACTAM 3.375 GM in SODIUM CHLORIDE 0.9% 100 ML IVPB SCH ×4 (01:00→23:30)
[2020-10-03] MEDS: IPRATROPIUM-ALBUTEROL 3 ML NEB INHALATION SCH ×4 (05:55→20:03)
[2020-10-03] MEDS: BUDESONIDE 1 MG/2 ML NEBU INHALATION SCH ×2 (05:55→20:03)
[2020-10-03] MEDS: FORMOTEROL FUMARATE 20 MCG/2 ML NEBU INHALATION SCH ×2 (05:55→20:03)
[2020-10-03 06:03] LABS: Anisocytosis Slight; Basophils % (A) 0 %; Eosinophils % (A) 0 %; HCT 25.5 % (39.0-53.0); Hypochromasia Slight; Lymphocytes # (A) 0.6 k/uL (1.0-4.8); Lymphocytes % (A) 2 %; MCH 30.1 pg (25.0-35.0); MCHC 31.3 g/dL (31.0-37.0); MCV 96.1 fL (80.0-100.0); Macrocytosis Slight; Mean Platelet Volume 8.9; Monocytes # (A) 0.6 k/uL (0-1.0); Monocytes % (A) 3 %; Neutrophils # (A) 22.5 k/uL (1.3-7.7); Neutrophils % (A) 95 %; Platelet Count 314 k/uL (150-450); RBC 2.65 m/uL (4.30-5.90); RDW 18.6 % (11.5-15.5); WBC 23.7 k/uL (3.8-10.6)
[2020-10-03 06:19] LABS: Calcium 7.9 mg/dL (8.4-10.2); Potassium 4.2 mmol/L (3.5-5.1)
[2020-10-03] MEDS: levETIRAcetam IV 500 MG in SODIUM CHLORIDE 0.9% 100 ML IVPB SCH ×2 (08:26→15:34)
[2020-10-03] MEDS: FAMOTIDINE 20 MG/2 ML VIAL IV SCH (08:27)
--- NOTE | 2020-10-03 08:40 | XR ---
EXAMINATION TYPE: XR chest 1V portable DATE OF EXAM: 10/03/2020 COMPARISON: 10/02/2020 INDICATION: Desaturation TECHNIQUE: Single frontal view of the chest is obtained. FINDINGS: The heart size is normal. The pulmonary vasculature is normal. Large right upper lobe consolidation is present. Upper lobe findings are worsening. IMPRESSION: 1. Worsening bilateral apical consolidations, worse on the right.
[2020-10-03] MEDS: atenoloL 50 MG TAB PO SCH (08:51)
[2020-10-03 09:01] LABS: ABG Base Excess -8.1 mmol/L; ABG HCO3 18 mmol/L (21-25); ABG Oxygen Saturation 99.8 % (94-97); ABG PCO2 33 mmHg (35-45); ABG PH 7.34 (7.35-7.45); ABG PO2 319 mmHg (83-108); ABG TCO2 19 mmol/L (19-24); Allen Test Performed? Yes
[2020-10-03] MEDS ORDERED: METOPROLOL TARTRATE 5 MG/5 ML VIAL IVP SCH (09:45)
[2020-10-03] MEDS: METOPROLOL TARTRATE 5 MG/5 ML VIAL IVP SCH ×3 (10:06→23:30)
--- NOTE | 2020-10-03 10:38 | P.PN ---
Subjective Progress Note Date: 10/03/20 Principal diagnosis: Respiratory failure. This is an 85-year-old white male with 1 day history of right upper quadrant pain, presented initially to the hospital on 09/24/2020, patient was diagnosed as having choledocholithiasis and ascending cholangitis. Patient was seen by brandie roenterology on consultation, and he underwent attempted ERCP, however the ERCP was difficult, and could not be diagnostic or therapeutic. This was done on 09/25, and according to the note by the concrete rod buster multiple attempts were made to advance the scope into the duodenum and visualizing the ampullary orifice was not successful. Hence ERCP was not performed. The concrete rod buster recommended referral to [facility] for ERCP. Surgery was consulted on the patient on 09/25/2020, and the patient was seen by Dr. Fried. He recommended laparoscopic cholecystectomy and this was supposed to be scheduled on 09/29/2020. In the meantime the patient was found to have E. coli bacteremia and he was on antibiotics all along. On 09/27/2020, patient was noted to have significant blood loss anemia, CT of the abdomen and pelvis showed splenic fracture. Hence Dr. Turcios saw the patient on consultation, and the patient underwent emergency exploratory laparotomy, extensive lysis of adhesions, open splenectomy with control of bleeding, evacuation of hemoperitoneum, application of a wound VAC system, placement of a ANDREA drain in the left splenic fossa and right at pelvis. Due to the emergency situation, open cholecystectomy was not performed, patient was transfused, required a total of 3 units of packed RBCs since his admission, and he also received 1 unit of platelets. Post surgery, patient was on mechanical ventilation, admitted to the ICU, and I was asked to see him on consultation. Patient is now on assist control rate of 14, volume of 450 FiO2 35% PEEP of 5 ABG showed a pO2 of 83 pCO2 of 30 pH of 7.45, patient was on bicarb drip which I discontinued. He is on pr opofol at 50 mcg/kg/m, norepinephrine at 0.01 mcg/kg/m, and I cut down his IV fluid since his chest x-ray is showing fluid overload and bilateral pleural effusions, and I would recommend gentle diuresis. Hemoglobin this morning is 7.4. His renal profile has improved in the last 24 hours. Creatinine was 1.3 to yesterday, and it is 1.16 today. A shunt didn't receive significant amount of fluids and blood products over the last 24 hours. During my evaluation, patient was fully sedated, and I have recommended holding the propofol, awakening the patient, give the patient at least a weaning trial, with pressure support and CPAP, and possibly proceed to extubation today. Progress note dated 09/29/2020. This an 85-year-old male who was admitted on September 24, for abdominal pain, nausea, and vomiting. The patient was discovered to have gallstones, and underwent an ERCP. Apparently the ERCP was not successful. Subsequent to that, the patient developed a splenic rupture. On September 27, the patient underwent exploratory laparotomy, lysis of adhesions, and splenectomy. For some unclear reason, a gallbladder was not removed. The patient remains on the ventilator, having been ventilated for the surgery on the . Currently, the patient is on the volume assist control mode, rate 14, tidal volume 450, FiO2 35%, and PEEP of 5. Blood gases show a PaO2 that is 361, a PaCO2 which is 35, pH is 7.4. I doubt the accuracy of the PaO2 on the blood gas. In addition, the patient's on propofol at 40 mcg/kg/m, and saline at KVO. No tube feeds. We will do a daily interruption of sedation, and possible spontaneous breathing trial with hopes of extubation. White count 14.1, hemoglobin 8.3, hematocrit 25.1, and platelet count 79,000. Sodium 143, potassium 3.3, chlorides 117, CO2 22, anion gap 4, BUN 23, and creatinine 1.09. Chest x-ray shows some bibasilar infiltrates and/or atelectasis. Progress note dated 09/30/2020. 85-year-old male who was admitted on September 24 for abdominal pain, nausea, and vomiting. The patient was discovered to have gallstones, and underwent an ERCP. Apparently the ERCP was unsuccessful. Subsequent to that, the patient developed a splenic rupture. On September 27, the patient underwent exploratory laparotomy, lysis of adhesions, and splenectomy. Gallbladder was not removed at that time. Yesterday, the patient was mechanically ventilated. Yesterday, the patient had an excellent weaning trial, after a daily interruption of sedation. The patient was extubated yesterday. He's currently on 3 L nasal cannula. And saline at KVO. He is doing reasonably well. His chest x-ray does show some bibasilar infiltrates or atelectasis and small effusions. He will need to deep breathe, cough, clear secretions, and using incentive spirometer. White count 10.8, hemoglobin 8.5, hematocrit 26.5, and platelet count 118,000. Sodium 146, potassium 3.5, chlorides 120, CO2 21, anion gap 5, BUN 15, creatinine 0.95. Progress note dated 10/01/2020. 85-year-old male who was admitted to the hospital on September 24 for abdominal pain, nausea, and vomiting. The patient underwent a ERCP, for gallstones, which was unsuccessful, and subsequent to that, developed a splenic rupture. On September 27, the patient underwent exploratory laparotomy, lysis of adhesions, and splenectomy. The gallbladder, at that time, was not removed. The patient was initially on the mechanical ventilator. He was extubated on September 29. Currently, he's on 2 L nasal cannula, and getting D5W at 50 mL an hour. Todays sodium is down to 145. In my opinion, the patient could be transferred to the general medical floor. White count 13.6, hemoglobin 8.3, hematocrit 25.9, and platelet count 164,000. Sodium 145, potassium 3.6, chlorides 119, CO2 19, BUN 13, and creatinine 0.86. Chest x-ray shows right lower lobe infiltrate/atelectasis. Blood sampling from September 25 shows Escherichia coli. The patient is currently on Unasyn as monotherapy. Progress note dated 10/02/2020. 85-year-old male was admitted to the hospital on September 24 for abdominal pain, nausea, and vomiting. The patient had an attempted ERCP, for gallstones, which was unsuccessful, and subsequently to that, developed a splenic rupture. On September 27, the patient underwent exploratory laparotomy, is is adhesions, and splenectomy. The gallbladder was not removed at that time. The patient was extubated from mechanical ventilation a couple days ago. He's currently on 3 L nasal cannula, and getting D5W at 50 mL mild hypernatremia. The patient was to leave the ICU and had a bed apparently, but last night, before he left the unit, he had an episode which may have included syncope and/or a seizure. For that reason, we're going to consult neurology. CAT scan of the brain was negative EGD was ordered. The patient's currently on Unasyn for E. coli bacteremia. In addition, the patient is quite bronchospastic, and will get some Pulmicort 1 mg, Perforomist, 20 g, and steroids. White count 19, hemoglobin 8.6, hematocrit 26.8, and platelet count 252,000. Sodium 143, potassium 4.1, chlorides 118, CO2 19, anion gap 6, with a BUN of 14 and a creatinine of 0.92. Chest x-ray today shows airspace consolidation in the right upper lobe and left upper lobe which is progressive. The patient may have aspirated. Progress note dated 10/03/2020. 85-year-old male who was admitted to the hospital on September 24 for abdominal pain, nausea, and vomiting. The patient had an attempted ERCP, for gallstones, which apparently was unsuccessful and, the patient subsequently developed a splenic rupture. On September 27, the patient went to the operating room for exploratory laparotomy, lysis of adhesions, and splenectomy. The patient was extubated from mechanical ventilation a few days ago. Initially he was on 3 L. Unfortunately over the last 24-36 hours, the patient has developed worsening respiratory status. He was initially on 15 L high flow nasal cannula, he suddenly switched to BiPAP, with settings of 12/500%. The patient's getting D5W at 50 mL an hour. Blood cultures are positive for Escherichia coli is being treated currently with Zosyn. Chest x-ray shows worsening infiltrate particularly in the right upper lobe. White count 23.7, hemoglobin 8, hematocrit 25.5, and platelet count 314,000. Sodium 144, potassium 4.2, chlorides 118, CO2 17, anion gap 9, BUN 23, and creatinine 1.04. Chest x-ray shows worsening bilateral apical infiltrates, right greater than left. Objective - Vital Signs Vital signs: Vital Signs Temp 96.6 F L 10/03/20 08:00 Pulse 96 10/03/20 10:00 Resp 31 H 10/03/20 10:00 BP 168/115 10/03/20 10:00 Pulse Ox 95 10/03/20 10:00 Intake & Output 10/02/20 10/03/20 10/03/20 18:59 06:59 18:59 Intake Total 750 600 350 Output Total 825 420 220 Balance -75 180 130 Weight 54.6 kg Intake: IV 750 600 250 Dextrose 5% in Water 1, 550 600 150 000 ml @ 50 mls/hr IV . Q20H [facility] Rx#:[id number] Piperacillin-Tazobactam 3 100 .375 gm In Sodium Chloride 0.9% 100 ml @ 25 mls/hr IVPB Q8H [facility] Rx#: [id number] levETIRAcetam IV 500 mg 100 100 In Sodium Chloride 0.9% 100 ml @ 400 mls/hr IVPB Q12H [facility] Rx#:[id number] Intake, IV Titration 100 Amount Piperacillin-Tazobactam 3 100 .375 gm In Sodium Chloride 0.9% 100 ml @ 25 mls/hr IVPB Q8HR [facility] Rx# :[id number] Output: Drainage 160 140 Left Abdomen 70 40 Right Abdomen 90 100 Urine 665 420 80 Other: Voiding Method Indwelling Catheter Indwelling Catheter Indwelling Catheter ABP, PAP, CO, CI - Last Documented Arterial Blood Pressure 126/118 - Exam Moderate respiratory distress, currently on BiPAP, with settings of IPAP 12, EPAP 5, and 100%. The patient has noisy respirations. HEENT examination is grossly unremarkable. Neck supple. Full range of motion. No adenopathy thyromegaly or neck vein distention. Cardiovascular examination reveals regular rhythm rate. S1-S2 normal. No S3 or S4. No discernible murmur noted. Heart sounds are distant. Heart rate about 101 bpm. Lungs reveal diffuse inspiratory and expiratory rhonchi and wheezes. The patient is quite bronchospastic. No crackles. Breath sounds are equal bilaterally. Abdomen is soft without bowel sounds. No masses or tenderness. Extremities are intact. No cyanosis clubbing or edema. Skin is without rash or lesion. Neurologic examination is brief but nonfocal. The patient appears to be a bit confused. - Labs CBC & Chem 7: 10/03/20 05:40 10/03/20 05:40 Labs: Abnormal Lab Results - Last 24 Hours (Table) 10/03/20 10/03/20 Range/Units 05:40 05:40 WBC 23.7 H (3.8-10.6) k/uL RBC 2.65 L (4.30-5.90) m/uL Hgb 8.0 L (13.0-17.5) gm/dL Hct 25.5 L (39.0-53.0) % RDW 18.6 H (11.5-15.5) % Neutrophils # 22.5 H (1.3-7.7) k/uL Lymphocytes # 0.6 L (1.0-4.8) k/uL Chloride 118 H (98-107) mmol/L Carbon Dioxide 17 L (22-30) mmol/L BUN 23 H (9-20) mg/dL Glucose 133 H (74-99) mg/dL Calcium 7.9 L (8.4-10.2) mg/dL Microbiology - Last 24 Hours (Table) 09/27/20 18:00 Blood Culture - Preliminary Blood No Growth after 120 hours 09/28/20 09:19 Blood Culture - Preliminary Blood No Growth after 96 hours Assessment and Plan Assessment: Status post exploratory laparotomy, splenectomy, and lysis of adhesions, on September 27, for splenic rupture, following ERCP, postop day #5. Postoperative routine mechanical ventilation, with successful extubation on September 29. Probable aspiration pneumonia, involving the right upper lobe in the left upper lobe, with significant bronchospasm, and worsening respiratory status, now requiring BiPAP. Questionable syncope/seizure, currently being evaluated by neurology. Escherichia coli bacteremia, secondary to acute ascending cholangitis, currently on Unasyn. Acute blood loss anemia, secondary to splenic rupture. Acute kidney injury, secondary to ATN. Postoperative bilateral pleural effusions, secondary to aggressive fluid management and administration of 3 units of PRBCs and 1 unit of platelets. History of hyperlipidemia. History of gout. History of hypertension. Plan: Plan dated 09/29/2020. The patient is currently still on the mechanical ventilator. We will do a daily interruption of sedation and a spontaneous breathing trial, and hope that the patient is ready for weaning and extubation. We will continue with antibiotics. The patient will continue on breathing treatments. The patient remains on Zosyn. Norepinephrine has been weaned off. The patient will continue on pain medication. Prognosis is guarded. Additional recommendations and suggestions to follow. We'll continue to follow make recommendations where appropriate. Plan dated 09/30/2020. The patient was successfully extubated yesterday. Remains on Zosyn as an antibiotic. The patient currently is on 3 L nasal cannula. I've encouraged the nurse to get the patient out of bed today and up in a chair. In addition, the patient needs to deep breathe, cough, and clear secretions, and also using incentive spirometer every hour. Also, we will switch his IV to D5W at 50 mL an hour. Additional recommendations and suggestions are forthcoming. Plan dated 10/01/2020. Currently, the patient's doing well. The patient needs to continue with deep breathing, coughing, and clearing his secretions. Likewise, the patient needs to use the incentive spirometer every hour. The patient remains on Unasyn as monotherapy for E. coli bacteremia. The patient's down to 2 L nasal cannula. His sodium is come down from 146 to 145 on D5W. The patient is stable for transfer to general medical floor without telemetry. Prognosis remains guarded. Plan dated 10/02/2020. The patient appeared to be quite bronchospastic, and the patient was placed on IV corticosteroids, Pulmicort, and Perforomist at usual doses. In addition, even though the CAT scan of the brain, was negative, patient will have an EEG, and neurology will see the patient. The patient's currently on Unasyn for E. coli bacteremia. He is getting D5W at 50 mL an hour. He is on 3 L nasal cannula. Prognosis is guarded. We will continue to follow make recommendations where appropriate. For the time being, the patient will stay in the intensive care unit. Plan dated 10/03/2020. The patient chest x-rays deftly worse. The patient was placed on BiPAP. His blood gas was reasonable. We will watch patient for now. I was sick and that the patient might need intubation but I think we can just watch him for now. The patient continues on antibiotics for the E. coli bacteremia. The patient continues on fluids. The chest x-ray was reviewed. The patient's sodium is 144. Additional recommendations and suggestions are forthcoming. Patient was certainly stay in the intensive care unit. The medications are reviewed. Time with Patient: Greater than 30
--- NOTE | 2020-10-03 12:09 | P.PN ---
Subjective Progress Note Date: 10/03/20 CHIEF COMPLAINT: Ruptured spleen HISTORY OF PRESENT ILLNESS: The patient is a 85-year-old male initially admitted for ascending cholangitis and history of common bile duct stones. He developed acute blood loss anemia due to ruptured spleen and is status post splenectomy. Patient had aspirated yesterday and now on BiPAP. Diet is held as a result. Patient has reported confusion per nursing. He had a liquid brown bowel movement. He has been started on steroids with incidental increase in WBC since initiation. ROS: No fevers or chills. On BiPAP. No new cardiac event. Per family, hears in left ear and reads lips. PHYSICAL EXAM: VITAL SIGNS: Reviewed CONSTITUTIONAL: Well developed EYES: Conjuctivae without sclera icterus. HEAD, EARS, NOSE, THROAT: Moist buccal mucosa. Head is atraumatic, normocephalic. Hears in left ear. NECK: No jugular venous distention. RESPIRATORY: Labored respirations and equal bilateral excursions. CARDIOVASCULAR: 2+ radial pulses ABDOMEN: No peritonitis. Wound vac with suction. MUSCULOSKELETAL: No gross deformity of the lower extremities noted. No clubbi ng. No cyanosis. SKIN: Good skin turgor. Well perfused. NEUROLOGIC: Cranial nerves II through XII grossly intact. No focal or lateralizing signs. PSYCH: Lethargis CLINICAL LABS: Reviewed. WBC elevated over 18,000. Platelets now normal. LFTs normal ASSESSMENT: 1. Acute splenic rupture of unclear etiology 2. Acute blood loss anemia due to splenic rupture 3. History of ascending cholangitis 4. Symptomatic gallstone 5. Thrombocytopenia 6. Aspiration PLAN: 1. Agree with swallow study/esophagram 2. Start peripheral parenteral nutrition. May need PICC line for TPN and antibiotics. 3. Recommend non-contrast CT of the abdomen regarding CBD stones follow-up 4. Antibiotic management per infectious disease team 5. Continue ICU care. Objective - Vital Signs Vital signs: Vital Signs Temp 98.5 F 10/03/20 11:00 Pulse 89 10/03/20 11:42 Resp 34 H 10/03/20 11:30 BP 146/56 10/03/20 11:30 Pulse Ox 99 10/03/20 11:30 Intake & Output 10/02/20 10/03/20 10/03/20 18:59 06:59 18:59 Intake Total 750 600 450 Output Total 825 420 280 Balance -75 180 170 Weight 54.6 kg Intake: IV 750 600 350 Dextrose 5% in Water 1, 550 600 250 000 ml @ 50 mls/hr IV . Q20H [facility] Rx#:[id number] Piperacillin-Tazobactam 3 100 .375 gm In Sodium Chloride 0.9% 100 ml @ 25 mls/hr IVPB Q8H [facility] Rx#: [id number] levETIRAcetam IV 500 mg 100 100 In Sodium Chloride 0.9% 100 ml @ 400 mls/hr IVPB Q12H [facility] Rx#:[id number] Intake, IV Titration 100 Amount Piperacillin-Tazobactam 3 100 .375 gm In Sodium Chloride 0.9% 100 ml @ 25 mls/hr IVPB Q8HR [facility] Rx# :[id number] Output: Drainage 160 140 Left Abdomen 70 40 Right Abdomen 90 100 Urine 665 420 140 Other: Voiding Method Indwelling Catheter Indwelling Catheter Indwelling Catheter ABP, PAP, CO, CI - Last Documented Arterial Blood Pressure 126/118 - Labs CBC & Chem 7: 10/03/20 05:40 10/03/20 05:40 Labs: Abnormal Lab Results - Last 24 Hours (Table) 10/03/20 10/03/20 Range/Units 05:40 05:40 WBC 23.7 H (3.8-10.6) k/uL RBC 2.65 L (4.30-5.90) m/uL Hgb 8.0 L (13.0-17.5) gm/dL Hct 25.5 L (39.0-53.0) % RDW 18.6 H (11.5-15.5) % Neutrophils # 22.5 H (1.3-7.7) k/uL Lymphocytes # 0.6 L (1.0-4.8) k/uL Chloride 118 H (98-107) mmol/L Carbon Dioxide 17 L (22-30) mmol/L BUN 23 H (9-20) mg/dL Glucose 133 H (74-99) mg/dL Calcium 7.9 L (8.4-10.2) mg/dL Microbiology - Last 24 Hours (Table) 09/28/20 09:19 Blood Culture - Preliminary Blood No Growth after 120 hours 09/27/20 18:00 Blood Culture - Preliminary Blood No Growth after 120 hours Assessment and Plan (1) Acute blood loss anemia Current Visit: Yes Status: Acute Code(s): D62 - ACUTE POSTHEMORRHAGIC ANEMIA SNOMED Code(s): 185518295 (2) Ruptured spleen Current Visit: Yes Status: Acute Code(s): S36.09XA - OTHER INJURY OF SPLEEN, INITIAL ENCOUNTER SNOMED Code(s): 575975321 (3) Acute kidney injury Current Visit: Yes Status: Acute Code(s): N17.9 - ACUTE KIDNEY FAILURE, UNSPECIFIED SNOMED Code(s): 75956788 (4) Ascending cholangitis Current Visit: Yes Status: Acute Code(s): K83.09 - OTHER CHOLANGITIS SNOMED Code(s): 46927525 (5) Choledocholithiasis Current Visit: Yes Status: Acute Code(s): K80.50 - CALCULUS OF BILE DUCT W/O CHOLANGITIS OR CHOLECYST W/O OBST SNOMED Code(s): 895332942
--- NOTE | 2020-10-03 12:35 | P.PN ---
Subjective Progress Note Date: 10/03/20 Principal diagnosis: pain Patient is currently requiring bipap since this am. He is on 50% FiO2. When seen he was sleeping. According to RN this is the first time he sleeps over the past few days. He was restless and fidgety last night. Objective - Vital Signs Vital signs: Vital Signs Temp 98.5 F 10/03/20 11:00 Pulse 89 10/03/20 11:42 Resp 34 H 10/03/20 11:30 BP 146/56 10/03/20 11:30 Pulse Ox 99 10/03/20 11:30 Intake & Output 10/02/20 10/03/20 10/03/20 18:59 06:59 18:59 Intake Total 750 600 450 Output Total 825 420 280 Balance -75 180 170 Weight 54.6 kg Intake: IV 750 600 350 Dextrose 5% in Water 1, 550 600 250 000 ml @ 50 mls/hr IV . Q20H [facility] Rx#:[id number] Piperacillin-Tazobactam 3 100 .375 gm In Sodium Chloride 0.9% 100 ml @ 25 mls/hr IVPB Q8H [facility] Rx#: [id number] levETIRAcetam IV 500 mg 100 100 In Sodium Chloride 0.9% 100 ml @ 400 mls/hr IVPB Q12H [facility] Rx#:[id number] Intake, IV Titration 100 Amount Piperacillin-Tazobactam 3 100 .375 gm In Sodium Chloride 0.9% 100 ml @ 25 mls/hr IVPB Q8HR [facility] Rx# :[id number] Output: Drainage 160 140 Left Abdomen 70 40 Right Abdomen 90 100 Urine 665 420 140 Other: Voiding Method Indwelling Catheter Indwelling Catheter Indwelling Catheter ABP, PAP, CO, CI - Last Documented Arterial Blood Pressure 126/118 - Exam General: moderate respiratory distress Derm: warm, dry Head: atraumatic, normocephalic, symmetric Eyes: EOMI, no lid lag, anicteric sclera Mouth: no lip lesion, mucus membranes moist Cardiovascular: S1S2 reg with grade 2 systolic ejection murmur, positive posterior tibial pulse bilateral, Lungs: Bilateral expiratory wheezing and rhonchi, no rales , no accessory muscle use Abdominal: soft, nondistended, +TTP diffusely, no appreciable organomegaly, dressing over midline incision, [address] with minimal serous sanguinous output. Ext: no gross muscle atrophy, no edema, no contractures Neuro: Moving all 4 extremities independently, no focal neuro deficits noted. - Labs CBC & Chem 7: 10/03/20 05:40 10/03/20 05:40 Labs: Abnormal Lab Results - Last 24 Hours (Table) 10/03/20 10/03/20 Range/Units 05:40 05:40 WBC 23.7 H (3.8-10.6) k/uL RBC 2.65 L (4.30-5.90) m/uL Hgb 8.0 L (13.0-17.5) gm/dL Hct 25.5 L (39.0-53.0) % RDW 18.6 H (11.5-15.5) % Neutrophils # 22.5 H (1.3-7.7) k/uL Lymphocytes # 0.6 L (1.0-4.8) k/uL Chloride 118 H (98-107) mmol/L Carbon Dioxide 17 L (22-30) mmol/L BUN 23 H (9-20) mg/dL Glucose 133 H (74-99) mg/dL Calcium 7.9 L (8.4-10.2) mg/dL Microbiology - Last 24 Hours (Table) 09/28/20 09:19 Blood Culture - Preliminary Blood No Growth after 120 hours 09/27/20 18:00 Blood Culture - Preliminary Blood No Growth after 120 hours Assessment and Plan Plan: Splenic rupture with acute blood loss anemia, thrombocytopenia, hypovolemic shock, resolved - s/p 3 units of pRBC and 1 unit of plt--hgb stable - Will start PPN per surgery. -Plan will be for immunization prior to discharge from hospital. Patient will need strep pneumonia vaccine, meningitis, and Haemophilus influenza B prior to discharge. Acute hypoxic respiratory failure/HCAP - Possible aspiration - Bronchodilators, steroids started by pulm - Continue zosyn, d/w ID Metabolic encephalopathy possible seizure. - Check EEG - Neuro consult Acute ascending cholangitis with E. coli bacteremia -Outpatient MRCP revealed choledocholithiasis with possible obstructive jaundice pattern. -Patient was taken for ERCP on 09/25/[address] Huang, however it was reported that scope could not be advanced. D/W Dr. Yuen will manage gallbladder as an outpatient at this time, no need for transfer. -Will get follow up CT abdomen today per surgery. -on zosyn as above Hypernatremia -Resolved. Acute kidney injury, resolved - baseline creatinine of 1.2. -Hold nephrotoxic medications -Continue to hold lisinopril secondary to recent hypotension requiring norepinephrine. Hypertension -With recent hypotension -atenolol -hold lisinopril -Blood pressures stable now Failed swallow study--keep NPO Discussed code status with son Prince over the phone. Patient is full code currently. DVT prophylaxis: SCDs Discussed with: nursing Anticipated discharge: undetermined Anticipated discharge place: undetermined A total of 34 minutes was spent on the care of this complex patient more than 50% of the time was spent in counseling and care coordination.
[2020-10-03] MEDS: DEXTROSE 5% IN WATER 1,000 ML IV SCH (13:00)
--- NOTE | 2020-10-03 16:44 | P.PN ---
Subjective Progress Note Date: 10/03/20 The patient seen at bedside and per the patient's nurse no further jerking of any his extremities. No seizure episodes. He had episode of short of breath today per the nurse. He had CPAP machine upon seeing him. Objective - Vital Signs Vital signs: Vital Signs Temp 98.4 F 10/03/20 16:00 Pulse 79 10/03/20 16:00 Resp 24 10/03/20 16:00 BP 164/55 10/03/20 16:00 Pulse Ox 98 10/03/20 16:00 Intake & Output 10/02/20 10/03/20 10/03/20 18:59 06:59 18:59 Intake Total 750 600 700 Output Total 825 420 510 Balance -75 180 190 Weight 54.6 kg 54.6 kg Intake: IV 750 600 600 Dextrose 5% in Water 1, 550 600 500 000 ml @ 50 mls/hr IV . Q20H [facility] Rx#:[id number] Piperacillin-Tazobactam 3 100 .375 gm In Sodium Chloride 0.9% 100 ml @ 25 mls/hr IVPB Q8H [facility] Rx#: [id number] levETIRAcetam IV 500 mg 100 100 In Sodium Chloride 0.9% 100 ml @ 400 mls/hr IVPB Q12H [facility] Rx#:[id number] Intake, IV Titration 100 Amount Piperacillin-Tazobactam 3 100 .375 gm In Sodium Chloride 0.9% 100 ml @ 25 mls/hr IVPB Q8HR [facility] Rx# :[id number] Output: Drainage 160 210 Left Abdomen 70 60 Right Abdomen 90 150 Urine 665 420 300 Other: Voiding Method Indwelling Catheter Indwelling Catheter Indwelling Catheter ABP, PAP, CO, CI - Last Documented Arterial Blood Pressure 126/118 - Exam GENERAL: The patient is lying in bed and is not in acute distress. NEUROLOGICAL: Limited since on CPAP machine Higher mental function: The patient is awake and seems restless. He nods approriately to his name and time. Patient is following commands. Cranial nerves: The pupils are round, equal and reactive to light. The facial strength is normal throughout. Motor: The strength is moving all extremities above gravity without focality. Cerebellum: Normal finger to nose bilaterally. Sensation: Sensation is normal to touch throughout. Reflexes (right/left):2+ throughout except patellar are 3+ bilaterally. Plantars are downgoing bilaterally. WORK-UP: CT of the head on 10/01/2020 is reported as cerebral atrophy. No acute intracranial abnormality. Routine EEG on 10/02/20: Is an abnormal routine EEG. The background slowing is suggestive of mild encephalopathy. There are no focal slowing, epileptiform discharges or seizure on the EEG. TSH: 2.79 (normal). Ionized calcium 4.9 (normal). - Labs CBC & Chem 7: 10/03/20 05:40 10/03/20 05:40 Labs: Abnormal Lab Results - Last 24 Hours (Table) 10/03/20 10/03/20 10/03/20 Range/Units 05:40 05:40 08:53 WBC 23.7 H (3.8-10.6) k/uL RBC 2.65 L (4.30-5.90) m/uL Hgb 8.0 L (13.0-17.5) gm/dL Hct 25.5 L (39.0-53.0) % RDW 18.6 H (11.5-15.5) % Neutrophils # 22.5 H (1.3-7.7) k/uL Lymphocytes # 0.6 L (1.0-4.8) k/uL ABG pH 7.34 L (7.35-7.45) ABG pCO2 33 L (35-45) mmHg ABG pO2 319 H (83-108) mmHg ABG HCO3 18 L (21-25) mmol/L ABG O2 Saturation 99.8 H (94-97) % Chloride 118 H (98-107) mmol/L Carbon Dioxide 17 L (22-30) mmol/L BUN 23 H (9-20) mg/dL Glucose 133 H (74-99) mg/dL Calcium 7.9 L (8.4-10.2) mg/dL Microbiology - Last 24 Hours (Table) 09/28/20 09:19 Blood Culture - Preliminary Blood No Growth after 120 hours 09/27/20 18:00 Blood Culture - Preliminary Blood No Growth after 120 hours Assessment and Plan Assessment: * Episode of reported myoclonic seizure-like on 10/01/2020 and episodes of intermittent focal motor jerking of the left lower extremity (but responsive for jerking of leg). Seems suspicious for seizure. Possibly provoked from underlying sepsis/metabolic. No documented history of seizure---no further episodes * Altered mental status due to septic encephalopathy--mentation improving * E. 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 Recommend prolonged EEG as outpatient (if jerking of legs are captured and no epileptiform or seizure on the EEG then recommend discontinuing seizure medication). Consider MRI Brain once patient is stable (can be done as outpatient). Infection disease team is on board. We'll defer the rest of the medical management to the primary team and ICU team. The plan is discussed with the patient's nurse. Will follow-up with the patient sporadically. Satya Garcia M.D. Neuro-hospitalist Time with Patient: Less than 30
--- NOTE | 2020-10-03 17:37 | PN ---
PROGRESS NOTE DATE OF SERVICE: 10/03/2020 The patient is an 85-year-old white male admitted to hospital with ascending cholangitis and CBD stones. He underwent attempted ERCP about a week ago and was unsuccessful. 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 Gimenez. The patient remains in the intensive care unit. Through the night he became somewhat short of breath and presently on BiPAP. He denies any new symptoms today. As per the nursing staff, he has been having intermittent confusion. No fever, chills. PHYSICAL EXAMINATION: Appears to be stable. Vital signs show a blood pressure of 116/55, pulse rate 79, temperature 98.4. HEENT examination unremarkable. Conjunctivae pink. Sclerae anicteric. Oral cavity, no lesions. CHEST: Clear to auscultation. ABDOMEN: Soft, nontender. EXTREMITIES: No pedal edema. NEUROLOGIC: He is awake and oriented to name. LABS: From today WBC 23.7, hemoglobin 8, platelets 314, BUN 23, creatinine 1.04. IMPRESSION: 1. Ascending cholangitis related to CBD stones. LFTs are normalized. Remains on broad- spectrum antibiotics. Attempted ERCP, but unsuccessful a week ago. 2. Acute splenic rupture status post splenectomy five days ago. Patient gradually improving. 3. Leukocytosis, rule out aspiration pneumonia, on broad-spectrum antibiotics. 4. Mild anemia and thrombocytopenia. 5. Shortness of breath, probably secondary to aspiration pneumonia, presently on BiPAP. RECOMMENDATIONS: 1. Continue with the current medical management. 2. Continue broad-spectrum antibiotics. 3. Monitor LFTs closely. 4. The patient may need an ERCP on an outpatient basis for which he will be referred to [facility] once his overall condition improves. We will follow with you as needed. Thank you for this consultation. MMODL / IJN: [id number] /
--- NOTE | 2020-10-03 17:58 | PN ---
PROGRESS NOTE DATE OF SERVICE: 10/03/2020 REASON FOR FOLLOWUP: E coli bacteremia and aspiration pneumonia. INTERVAL HISTORY: Patient did have worsening of respiratory status requiring placement on the BiPAP. The patient is hemodynamically stable, not on pressor support. The patient remains to be lethargic and unable to provide any history. No vomiting, diarrhea other changes reported by nursing staff. PHYSICAL EXAMINATION: Blood pressure 154/55, pulse of 69, temperature 98.2. He is 98% on ( ). General description is an elderly male lying in no distress. Respiratory system: Unlabored breathing. Coarse breath sounds bilaterally, no wheeze. Heart S1, S2. Regular rate and rhythm. Abdomen soft, no tenderness. LABORATORY STUDIES: Hemoglobin 8, white count 23.7, BUN of 23, creatinine 1.04. Sputum has been obtained which is currently pending. DIAGNOSTIC IMPRESSION AND PLAN: Patient admitted to the hospital with dizziness in this patient who did have ( ) status post splenectomy with concern for cholangitis and E coli bacteremia. Subsequently ( ) aspiration pneumonia. Patient is covered with Zosyn. Worsening of the white count could be related to steroids the patient is on and will be monitored closely. Continue supportive care. MMODL / IJN: [id number] /
[2020-10-03 23:32] LABS: ABG Base Excess -7.8 mmol/L; ABG HCO3 18 mmol/L (21-25); ABG Oxygen Saturation 98.4 % (94-97); ABG PCO2 30 mmHg (35-45); ABG PH 7.37 (7.35-7.45); ABG PO2 114 mmHg (83-108); ABG TCO2 18 mmol/L (19-24); Allen Test Performed? Yes
[2020-10-04] MEDS ORDERED: LORazepam 2 MG/ML INJ IV ONE (00:52)
[2020-10-04] MEDS: levETIRAcetam IV 500 MG in SODIUM CHLORIDE 0.9% 100 ML IVPB SCH ×2 (03:22→15:36)
[2020-10-04 05:28] LABS: Anisocytosis Slight; Basophils % (A) 0 %; Eosinophils % (A) 0 %; HCT 22.9 % (39.0-53.0); HGB 7.2 gm/dL (13.0-17.5); Hypochromasia Slight; Lymphocytes # (A) 0.5 k/uL (1.0-4.8); Lymphocytes % (A) 2 %; MCH 29.8 pg (25.0-35.0); MCHC 31.5 g/dL (31.0-37.0); MCV 94.5 fL (80.0-100.0); Macrocytosis Slight; Mean Platelet Volume 9.9; Monocytes # (A) 0.7 k/uL (0-1.0); Monocytes % (A) 4 %; Neutrophils # (A) 17.9 k/uL (1.3-7.7); Neutrophils % (A) 93 %; Platelet Count 314 k/uL (150-450); RBC 2.42 m/uL (4.30-5.90); RDW 18.1 % (11.5-15.5); WBC 19.2 k/uL (3.8-10.6)
[2020-10-04 05:36] LABS: Albumin 2.1 g/dL (3.5-5.0); Calcium 7.6 mg/dL (8.4-10.2); Potassium 3.6 mmol/L (3.5-5.1); Total Bilirubin 0.4 mg/dL (0.2-1.3); Total Protein 4.1 g/dL (6.3-8.2)
[2020-10-04] MEDS: POTASSIUM CHLORIDE 10 MEQ in WATER FOR INJECTION 1 100ML.BAG IVPB SCH ×2 (06:04→07:13)
[2020-10-04] MEDS: FAMOTIDINE 20 MG/2 ML VIAL IV SCH (08:26)
[2020-10-04] MEDS: PIPERACILLIN-TAZOBACTAM 3.375 GM in SODIUM CHLORIDE 0.9% 100 ML IVPB SCH ×2 (08:26→15:44)
[2020-10-04] MEDS: methylPREDNISolone SOD SUCCI 40 MG/ML 1 ML VIAL IV SCH ×2 (08:26→15:36)
[2020-10-04] MEDS: IPRATROPIUM-ALBUTEROL 3 ML NEB INHALATION SCH ×4 (09:04→19:20)
[2020-10-04] MEDS: FORMOTEROL FUMARATE 20 MCG/2 ML NEBU INHALATION SCH ×2 (09:04→19:30)
[2020-10-04] MEDS: BUDESONIDE 1 MG/2 ML NEBU INHALATION SCH ×2 (09:04→19:20)
--- NOTE | 2020-10-04 09:38 | P.PN ---
Subjective Progress Note Date: 10/04/20 Principal diagnosis: pain Still requiring bipap. He was given some ativan overnight for agitation, currently sleeping. No fevers. Objective - Vital Signs Vital signs: Vital Signs Temp 97.5 F L 10/04/20 08:00 Pulse 60 10/04/20 09:27 Resp 32 H 10/04/20 09:00 BP 152/53 10/04/20 09:00 Pulse Ox 98 10/04/20 09:00 Intake & Output 10/03/20 10/04/20 10/04/20 18:59 06:59 18:59 Intake Total 1000 800 350 Output Total 585 485 105 Balance 415 315 245 Weight 54.6 kg 55.2 kg Intake: IV 800 600 150 Dextrose 5% in Water 1, 600 600 150 000 ml @ 50 mls/hr IV . Q20H [facility] Rx#:[id number] levETIRAcetam IV 500 mg 200 In Sodium Chloride 0.9% 100 ml @ 400 mls/hr IVPB Q12H [facility] Rx#:[id number] Intake, IV Titration 200 200 200 Amount Piperacillin-Tazobactam 3 200 100 100 .375 gm In Sodium Chloride 0.9% 100 ml @ 25 mls/hr IVPB Q8HR [facility] Rx# :[id number] Potassium Chloride 10 meq 100 In Water For Injection 1 100ml.bag @ 100 mls/hr IVPB Q1H [facility] Rx#: [id number] levETIRAcetam IV 500 mg 100 In Sodium Chloride 0.9% 100 ml @ 400 mls/hr IVPB Q12H [facility] Rx#:[id number] Output: Drainage 210 105 Left Abdomen 60 30 Right Abdomen 150 75 Urine 375 380 105 Other: Voiding Method Indwelling Catheter Indwelling Catheter ABP, PAP, CO, CI - Last Documented Arterial Blood Pressure 126/118 - Exam General: moderate respiratory distress Derm: warm, dry Head: atraumatic, normocephalic, symmetric Eyes: EOMI, no lid lag, anicteric sclera Mouth: no lip lesion, mucus membranes moist Cardiovascular: S1S2 reg with grade 2 systolic ejection murmur, positive posterior tibial pulse bilateral, Lungs: Bilateral expiratory wheezing and rhonchi, no rales , no accessory muscle use Abdominal: soft, nondistended, +TTP diffusely, no appreciable organomegaly, dressing over midline incision, [address] with minimal serous sanguinous output. Ext: no gross muscle atrophy, no edema, no contractures Neuro: Moving all 4 extremities independently, no focal neuro deficits noted. - Labs CBC & Chem 7: 10/04/20 04:35 10/04/20 04:35 Labs: Abnormal Lab Results - Last 24 Hours (Table) 10/03/20 10/03/20 10/04/20 Range/Units 08:53 23:29 04:35 WBC 19.2 H (3.8-10.6) k/uL RBC 2.42 L (4.30-5.90) m/uL Hgb 7.2 L (13.0-17.5) gm/dL Hct 22.9 L (39.0-53.0) % RDW 18.1 H (11.5-15.5) % Neutrophils # 17.9 H (1.3-7.7) k/uL Lymphocytes # 0.5 L (1.0-4.8) k/uL ABG pH 7.34 L (7.35-7.45) ABG pCO2 33 L 30 L (35-45) mmHg ABG pO2 319 H 114 H (83-108) mmHg ABG HCO3 18 L 18 L (21-25) mmol/L ABG Total CO2 18 L (19-24) mmol/L ABG O2 Saturation 99.8 H 98.4 H (94-97) % Chloride (98-107) mmol/L Carbon Dioxide (22-30) mmol/L BUN (9-20) mg/dL Glucose (74-99) mg/dL Calcium (8.4-10.2) mg/dL Total Protein (6.3-8.2) g/dL Albumin (3.5-5.0) g/dL 10/04/20 Range/Units 04:35 WBC (3.8-10.6) k/uL RBC (4.30-5.90) m/uL Hgb (13.0-17.5) gm/dL Hct (39.0-53.0) % RDW (11.5-15.5) % Neutrophils # (1.3-7.7) k/uL Lymphocytes # (1.0-4.8) k/uL ABG pH (7.35-7.45) ABG pCO2 (35-45) mmHg ABG pO2 (83-108) mmHg ABG HCO3 (21-25) mmol/L ABG Total CO2 (19-24) mmol/L ABG O2 Saturation (94-97) % Chloride 117 H (98-107) mmol/L Carbon Dioxide 19 L (22-30) mmol/L BUN 33 H (9-20) mg/dL Glucose 120 H (74-99) mg/dL Calcium 7.6 L (8.4-10.2) mg/dL Total Protein 4.1 L (6.3-8.2) g/dL Albumin 2.1 L (3.5-5.0) g/dL Microbiology - Last 24 Hours (Table) 09/27/20 18:00 Blood Culture - Final Blood No Growth after 144 hours 09/28/20 09:19 Blood Culture - Preliminary Blood No Growth after 120 hours Assessment and Plan Plan: Splenic rupture with acute blood loss anemia, thrombocytopenia, hypovolemic shock, resolved - s/p 3 units of pRBC and 1 unit of plt--hgb stable - Will start PPN per surgery. Will need picc. Defer to surgery. -Plan will be for immunization prior to discharge from hospital. Patient will need strep pneumonia vaccine, meningitis, and Haemophilus influenza B prior to discharge. Acute hypoxic respiratory failure/HCAP - Possible aspiration - Bronchodilators, steroids started by pulm - Continue zosyn, d/w ID Metabolic encephalopathy possible seizure. - Check EEG - Neuro consult Acute ascending cholangitis with E. coli bacteremia -Outpatient MRCP revealed choledocholithiasis with possible obstructive jaundice pattern. -Patient was taken for ERCP on 09/25/[address] Huang, however it was reported that scope could not be advanced. D/W Dr. Yuen will manage gallbladder as an outpatient at this time, no need for transfer. -Will get follow up CT abdomen today per surgery. -on zosyn as above Hypernatremia -Resolved. Acute kidney injury, resolved - baseline creatinine of 1.2. Resolved. Hypertension -With recent hypotension -atenolol -hold lisinopril -Blood pressures stable now Failed swallow study--keep NPO Discussed code status with son Prince over the phone. Patient is full code currently. DVT prophylaxis: SCDs Discussed with: nursing Anticipated discharge: undetermined Anticipated discharge place: undetermined A total of 34 minutes was spent on the care of this complex patient more than 50% of the time was spent in counseling and care coordination.
--- NOTE | 2020-10-04 09:42 | XR ---
EXAMINATION TYPE: XR chest 1V portable DATE OF EXAM: 10/04/2020 COMPARISON: 10/03/2020 and prior HISTORY: 85 years Male. STUDY INDICATION GIVEN: Congestion TECHNIQUE: Semiupright portable AP chest radiograph FINDINGS AND IMPRESSION: Bilateral perihilar and upper opacities again seen with interval improvement. Likely on the basis of multifocal pneumonia. No pneumothorax seen. Trace left pleural effusion questionable. No pleural effusion on the right. Cardiomediastinal silhouette within normal. Generalized osteopenia. No acute osseous abnormality.
--- NOTE | 2020-10-04 10:20 | P.PN ---
Subjective Progress Note Date: 10/04/20 Principal diagnosis: Acute respiratory failure On 10/04/2020 patient seen in follow-up in the intensive care unit. he is lethargic, but opens eyes to voice, he is currently on BiPAP support, with pressures of 12 and 5 and FiO2 of 50%, estimated blood gases were reviewed showing pO2 of 114, pCO2 of 30, and pH is 7.37 and this was done on FiO2 of 50% on BiPAP. He is to be comfortable on today's exam, he is on D5W at a rate of 50 ML per hour, no vasopressor support, his follows simple command, he remains on antibiotics in the form of Zosyn for E. coli bacteremia, his follow-up blood cultures have shown no growth, sputum culture showed no growth. He is in sinus mechanism with a rate of 73 BPM. His chest x-ray shows improved aeration in his right lung. Was given a brief trial off the BiPAP and nasal cannula last night, he was placed back on BiPAP support overnight. Today's labs have been reviewed showing improving white blood cell count which is down to 19.2, hemoglobin is 7.2, sodium is 143, potassium is 3.6, chloride is 117, CO2 is 19, B1 is 33, creatinine is 1.16. Patient has been nothing by mouth, his modified barium swallow has been placed on hold because of BiPAP support. His urine output is in the order of 25-50 ML per hour. he remains on breathing treatments and IV Solu-Medrol, cough or wheezing on today's exam. He has not been able to do the incentive spirometer related to BiPAP support. Overall breathing better, looks more stable. We'll attempt nasal cannula trial this morning again. Objective - Vital Signs Vital signs: Vital Signs Temp 97.5 F L 10/04/20 08:00 Pulse 60 10/04/20 09:27 Resp 32 H 10/04/20 09:00 BP 152/53 10/04/20 09:00 Pulse Ox 98 10/04/20 09:00 Intake & Output 10/03/20 10/04/20 10/04/20 18:59 06:59 18:59 Intake Total 1000 800 350 Output Total 585 485 105 Balance 415 315 245 Weight 54.6 kg 55.2 kg Intake: IV 800 600 150 Dextrose 5% in Water 1, 600 600 150 000 ml @ 50 mls/hr IV . Q20H [facility] Rx#:[id number] levETIRAcetam IV 500 mg 200 In Sodium Chloride 0.9% 100 ml @ 400 mls/hr IVPB Q12H [facility] Rx#:[id number] Intake, IV Titration 200 200 200 Amount Piperacillin-Tazobactam 3 200 100 100 .375 gm In Sodium Chloride 0.9% 100 ml @ 25 mls/hr IVPB Q8HR [facility] Rx# :[id number] Potassium Chloride 10 meq 100 In Water For Injection 1 100ml.bag @ 100 mls/hr IVPB Q1H [facility] Rx#: [id number] levETIRAcetam IV 500 mg 100 In Sodium Chloride 0.9% 100 ml @ 400 mls/hr IVPB Q12H [facility] Rx#:[id number] Output: Drainage 210 105 Left Abdomen 60 30 Right Abdomen 150 75 Urine 375 380 105 Other: Voiding Method Indwelling Catheter Indwelling Catheter Indwelling Catheter ABP, PAP, CO, CI - Last Documented Arterial Blood Pressure 126/118 - Exam GENERAL EXAM: Lethargic but arousable to voice, 85-year-old white male, on BiPAP support, with pressures of 12 and 5 and 50%, comfortable in no apparent distress. HEAD: Normocephalic/atraumatic. EYES: Normal reaction of pupils, equal size. Conjunctiva pink, sclera white. NOSE: Clear with pink turbinates. THROAT: No erythema or exudates. NECK: No masses, no JVD, no thyroid enlargement, no adenopathy. CHEST: No chest wall deformity. Symmetrical expansion. LUNGS: Equal air entry with no crackles, wheeze, rhonchi or dullness. CVS: Regular rate and rhythm, normal S1 and S2, no gallops, no murmurs, no rubs ABDOMEN: Soft, mildly tender post surgery. No hepatosplenomegaly, normal bowel sounds, no guarding or rigidity. Midabdominal incision is clean dry and intact EXTREMITIES: No clubbing, no edema, no cyanosis, 2+ pulses and upper and lower extremities. MUSCULOSKELETAL: Muscle strength and tone normal. SPINE: No scoliosis or deformity SKIN: No rashes CENTRAL NERVOUS SYSTEM: Lethargic but arousable to voice currently on BiPAP support, unable to assess verbal responses No focal deficits, tone is normal in all 4 extremities. - Labs CBC & Chem 7: 10/04/20 04:35 10/04/20 04:35 Labs: Abnormal Lab Results - Last 24 Hours (Table) 10/03/20 10/03/20 10/04/20 Range/Units 08:53 23:29 04:35 WBC 19.2 H (3.8-10.6) k/uL RBC 2.42 L (4.30-5.90) m/uL Hgb 7.2 L (13.0-17.5) gm/dL Hct 22.9 L (39.0-53.0) % RDW 18.1 H (11.5-15.5) % Neutrophils # 17.9 H (1.3-7.7) k/uL Lymphocytes # 0.5 L (1.0-4.8) k/uL ABG pH 7.34 L (7.35-7.45) ABG pCO2 33 L 30 L (35-45) mmHg ABG pO2 319 H 114 H (83-108) mmHg ABG HCO3 18 L 18 L (21-25) mmol/L ABG Total CO2 18 L (19-24) mmol/L ABG O2 Saturation 99.8 H 98.4 H (94-97) % Chloride (98-107) mmol/L Carbon Dioxide (22-30) mmol/L BUN (9-20) mg/dL Glucose (74-99) mg/dL Calcium (8.4-10.2) mg/dL Total Protein (6.3-8.2) g/dL Albumin (3.5-5.0) g/dL 10/04/20 Range/Units 04:35 WBC (3.8-10.6) k/uL RBC (4.30-5.90) m/uL Hgb (13.0-17.5) gm/dL Hct (39.0-53.0) % RDW (11.5-15.5) % Neutrophils # (1.3-7.7) k/uL Lymphocytes # (1.0-4.8) k/uL ABG pH (7.35-7.45) ABG pCO2 (35-45) mmHg ABG pO2 (83-108) mmHg ABG HCO3 (21-25) mmol/L ABG Total CO2 (19-24) mmol/L ABG O2 Saturation (94-97) % Chloride 117 H (98-107) mmol/L Carbon Dioxide 19 L (22-30) mmol/L BUN 33 H (9-20) mg/dL Glucose 120 H (74-99) mg/dL Calcium 7.6 L (8.4-10.2) mg/dL Total Protein 4.1 L (6.3-8.2) g/dL Albumin 2.1 L (3.5-5.0) g/dL Microbiology - Last 24 Hours (Table) 09/27/20 18:00 Blood Culture - Final Blood No Growth after 144 hours 09/28/20 09:19 Blood Culture - Preliminary Blood No Growth after 120 hours Assessment and Plan Plan: Assessment: #1. Acute splenic rupture following ERCP, status post exploratory laparotomy, splenectomy and lysis of adhesions on 09/27/2020, postoperative day #6 #2. Postoperative routine mechanical ventilator management, with successful extubation on September 29, currently requiring BiPAP support #3. Probable aspiration pneumonia involving the right upper lobe in the left upper lobe with significant bronchospasm and worsening respiratory status, currently improving #4. Questionable syncope/seizure #5. E. coli bacteremia secondary to acute ascending cholangitis currently on Zosyn #6. Acute blood loss anemia secondary to splenic rupture requiring 3 units of packed red blood cells, and 1 unit of platelets #7. Acute kidney injury secondary to ATN #8. Postoperative bilateral pleural effusions secondary to aggressive fluid resuscitation and transfusion of blood products #9. History of hyperlipidemia #10. History of gout #11. History of hypertension Plan: Continue Zosyn Continue steroids and bronchodilators Hemodynamically patient is stable, not on any vasopressor support Continue D5W at 50 ML per hour We'll give the patient a trial on the nasal cannula If breathing remains stable may attempt bedside swallow evaluation Follow blood cultures have been negative, patient is afebrile Follow-up chest x-ray tomorrow Continue GI and DVT prophylaxis We'll continue monitoring in the intensive care unit I performed a history & physical examination of the patient and discussed their management with my nurse practitioner, Breanne Maria. I reviewed the nurse practitioner's note and agree with the documented findings and plan of care. Lung sounds are positive for diminished breath sounds throughout the lung bello. The findings and the impression was discussed with the patient. I atte st to the documentation by the nurse practitioner. Time with Patient: Greater than 30
[2020-10-04] MEDS: METOPROLOL TARTRATE 5 MG/5 ML VIAL IVP SCH ×3 (11:22→17:37)
[2020-10-04] MEDS: DEXTROSE 5% IN WATER 1,000 ML IV SCH (12:02)
--- NOTE | 2020-10-04 12:02 | P.PN ---
Progress Note - Text Progress Note Date: 10/04/20 Patient is resting his bed. He has some respiratory difficulty. On exam vital signs appear stable. Abdomen soft incision is clean dry tach. Status post splenectomy after ERCP. Patient will receive supportive care.
--- NOTE | 2020-10-04 13:29 | PN ---
PROGRESS NOTE DATE OF SERVICE: 10/04/2020 REASON FOR FOLLOWUP: E coli bacteremia and possible aspiration pneumonia. INTERVAL HISTORY: The patient is afebrile. He seems to be slightly more awake, alert. He did have a congested cough, unable to cough up any sputum. He is hemodynamically stable, not on any pressor support. No vomiting or diarrhea is reported by nursing staff. PHYSICAL EXAMINATION: Blood pressure 146/52, pulse of 57, temperature is 97.5. He is 99% on 50% FiO2. General description is an elderly male lying in bed in no distress. Respiratory system: Unlabored breathing, clear to auscultation anteriorly. Heart S1, S2. Regular rate and rhythm. Abdomen soft, no tenderness. LABS: Hemoglobin 7.1, white count 19.2, BUN of 33, creatinine is 1.16. Sputum so far negative. Blood culture has been negative. DIAGNOSTIC IMPRESSION AND PLAN: Patient admitted to the hospital with weakness and this patient did have splenic rupture status post splenectomy. Also, has E coli bacteremia probably related to cholangitis and subsequent did have an episode of aspiration pneumonitis, covered with Zosyn. White count is trending down. We will monitor clinical course closely. Continue supportive care. MMODL / IJN: [id number] /
[2020-10-04] MEDS: LORazepam 2 MG/ML INJ IV PRN ×2 (15:09→20:51)
[2020-10-05] MEDS: METOPROLOL TARTRATE 5 MG/5 ML VIAL IVP SCH ×4 (00:31→18:05)
[2020-10-05] MEDS: methylPREDNISolone SOD SUCCI 40 MG/ML 1 ML VIAL IV SCH ×3 (00:32→16:07)
[2020-10-05] MEDS: PIPERACILLIN-TAZOBACTAM 3.375 GM in SODIUM CHLORIDE 0.9% 100 ML IVPB SCH ×3 (00:32→16:07)
[2020-10-05] MEDS: DEXTROSE 5% IN WATER 1,000 ML IV SCH (04:12)
[2020-10-05] MEDS: levETIRAcetam IV 500 MG in SODIUM CHLORIDE 0.9% 100 ML IVPB SCH ×2 (04:15→16:07)
[2020-10-05 04:31] LABS: Ionized Calcium 4.9 mg/dL (4.5-5.3)
[2020-10-05 04:41] LABS: Calcium 7.4 mg/dL (8.4-10.2); Potassium 3.6 mmol/L (3.5-5.1); Total Bilirubin 0.3 mg/dL (0.2-1.3)
[2020-10-05 04:42] LABS: Magnesium 2.6 mg/dL (1.6-2.3); Phosphorus 4.6 mg/dL (2.5-4.5)
[2020-10-05] MEDS: POTASSIUM CHLORIDE 10 MEQ in WATER FOR INJECTION 1 100ML.BAG IVPB SCH ×2 (04:58→06:22)
[2020-10-05 05:33] LABS: Anisocytosis Slight; Basophils % (A) 0 %; Eosinophils % (A) 0 %; Hypochromasia Slight; Lymphocytes # (A) 0.5 k/uL (1.0-4.8); Lymphocytes % (A) 4 %; MCH 30.9 pg (25.0-35.0); MCHC 32.4 g/dL (31.0-37.0); MCV 95.3 fL (80.0-100.0); Macrocytosis Slight; Mean Platelet Volume 9.7; Monocytes # (A) 0.5 k/uL (0-1.0); Monocytes % (A) 4 %; Neutrophils # (A) 10.9 k/uL (1.3-7.7); Neutrophils % (A) 92 %; Platelet Count 341 k/uL (150-450); RDW 18.2 % (11.5-15.5); WBC 11.9 k/uL (3.8-10.6)
[2020-10-05 05:36] LABS: HGB 6.8 gm/dL (13.0-17.5)
--- NOTE | 2020-10-05 07:23 | XR ---
EXAMINATION TYPE: XR chest 1V portable DATE OF EXAM: 10/05/2020 COMPARISON: 10/04/2020 HISTORY: 85 years Male. STUDY INDICATION GIVEN: Congestion TECHNIQUE: AP portable chest radiograph FINDINGS AND IMPRESSION: Bilateral perihilar and lung opacities are again seen and have worsened. Left lower lobe collapse again seen. There may be a trace left pleural effusion. No pleural effusion on the right. No pneumothorax. Cardiomediastinal silhouette within normal. Osseous structures are stable.
[2020-10-05] MEDS: BUDESONIDE 1 MG/2 ML NEBU INHALATION SCH ×2 (08:00→19:59)
[2020-10-05] MEDS: IPRATROPIUM-ALBUTEROL 3 ML NEB INHALATION SCH ×4 (08:00→19:59)
[2020-10-05] MEDS: FORMOTEROL FUMARATE 20 MCG/2 ML NEBU INHALATION SCH ×2 (08:00→19:59)
[2020-10-05] MEDS: FAMOTIDINE 20 MG/2 ML VIAL IV SCH (08:03)
--- NOTE | 2020-10-05 09:31 | P.PN ---
Subjective Progress Note Date: 10/05/20 Principal diagnosis: pain Patient was on bipap last night, he is currently on 100% NRB. According to nursing he has been getting ativan intermittently for agitation. He is still not able to communicate verbally. No fevers recorded. Objective - Vital Signs Vital signs: Vital Signs Temp 97.6 F 10/05/20 04:00 Pulse 75 10/05/20 08:27 Resp 21 10/05/20 07:00 BP 153/84 10/05/20 07:00 Pulse Ox 98 10/05/20 07:00 Intake & Output 10/04/20 10/05/20 10/05/20 18:59 06:59 18:59 Intake Total 1000 800 50 Output Total 530 500 30 Balance 470 300 20 Weight 55.2 kg 54.8 kg Intake: IV 600 700 50 Dextrose 5% in Water 1, 600 600 50 000 ml @ 50 mls/hr IV . Q20H [facility] Rx#:[id number] levETIRAcetam IV 500 mg 100 In Sodium Chloride 0.9% 100 ml @ 400 mls/hr IVPB Q12H [facility] Rx#:[id number] Intake, IV Titration 400 100 Amount Piperacillin-Tazobactam 3 200 .375 gm In Sodium Chloride 0.9% 100 ml @ 25 mls/hr IVPB Q8HR [facility] Rx# :[id number] Potassium Chloride 10 meq 100 100 In Water For Injection 1 100ml.bag @ 100 mls/hr IVPB Q1H [facility] Rx#: [id number] levETIRAcetam IV 500 mg 100 In Sodium Chloride 0.9% 100 ml @ 400 mls/hr IVPB Q12H [facility] Rx#:[id number] Output: Drainage 120 120 Left Abdomen 30 40 Right Abdomen 90 80 Urine 410 380 30 Other: Voiding Method Indwelling Catheter Indwelling Catheter ABP, PAP, CO, CI - Last Documented Arterial Blood Pressure 126/118 - Exam General: moderate respiratory distress Derm: warm, dry Head: atraumatic, normocephalic, symmetric Eyes: EOMI, no lid lag, anicteric sclera Mouth: no lip lesion, mucus membranes moist Cardiovascular: S1S2 reg with grade 2 systolic ejection murmur, positive posterior tibial pulse bilateral, Lungs: Bilateral expiratory wheezing and rhonchi, no rales , no accessory muscle use Abdominal: soft, nondistended, +TTP diffusely, no appreciable organomegaly, dressing over midline incision, [address] with minimal serous sanguinous output. Ext: no gross muscle atrophy, no edema, no contractures Neuro: Moving all 4 extremities independently, no focal neuro deficits noted. - Labs CBC & Chem 7: 10/05/20 03:27 10/05/20 03:27 Labs: Abnormal Lab Results - Last 24 Hours (Table) 09/27/20 10/05/20 10/05/20 Range/Units 10:45 03:27 03:27 WBC (3.8-10.6) k/uL RBC (4.30-5.90) m/uL Hgb (13.0-17.5) gm/dL Hct (39.0-53.0) % RDW (11.5-15.5) % Neutrophils # (1.3-7.7) k/uL Lymphocytes # (1.0-4.8) k/uL Chloride 118 H (98-107) mmol/L Carbon Dioxide 18 L (22-30) mmol/L BUN 35 H (9-20) mg/dL Glucose 124 H (74-99) mg/dL Calcium 7.4 L (8.4-10.2) mg/dL Phosphorus 4.6 H (2.5-4.5) mg/dL Magnesium 2.6 H (1.6-2.3) mg/dL Total Protein 4.0 L (6.3-8.2) g/dL Albumin 2.0 L (3.5-5.0) g/dL Crossmatch See Detail 10/05/20 10/05/20 Range/Units 03:27 06:48 WBC 11.9 H (3.8-10.6) k/uL RBC 2.20 L (4.30-5.90) m/uL Hgb 6.8 L* (13.0-17.5) gm/dL Hct 21.0 L (39.0-53.0) % RDW 18.2 H (11.5-15.5) % Neutrophils # 10.9 H (1.3-7.7) k/uL Lymphocytes # 0.5 L (1.0-4.8) k/uL Chloride (98-107) mmol/L Carbon Dioxide (22-30) mmol/L BUN (9-20) mg/dL Glucose (74-99) mg/dL Calcium (8.4-10.2) mg/dL Phosphorus (2.5-4.5) mg/dL Magnesium (1.6-2.3) mg/dL Total Protein (6.3-8.2) g/dL Albumin (3.5-5.0) g/dL Crossmatch See Detail Microbiology - Last 24 Hours (Table) 09/28/20 09:19 Blood Culture - Final Blood No Growth after 144 hours Assessment and Plan Plan: Splenic rupture with acute blood loss anemia, thrombocytopenia, hypovolemic shock, resolved - s/p 3 units of pRBC and 1 unit of plt--hgb dropped again today, will transfuse more PRBCs. Follow in am. Will get follow up CT abdomen today, to r/o bleeding.. - Will start PPN per surgery. Ordered picc, scheduled for Tuesday. -Plan will be for immunization prior to discharge from hospital. Patient will need strep pneumonia vaccine, meningitis, and Haemophilus influenza B prior to discharge. Acute hypoxic respiratory failure/HCAP - Possible aspiration - Bronchodilators, steroids started by pulm - Continue zosyn, d/w ID Metabolic encephalopathy possible seizure. - EEG with no epileptiform discharges. Start on keppra per neuro. Also on ativan for sedation. - Neuro following. Acute ascending cholangitis with E. coli bacteremia -Outpatient MRCP revealed choledocholithiasis with possible obstructive jaundice pattern. -Patient was taken for ERCP on 09/25/[address] Huang, however it was reported that scope could not be advanced. D/W Dr. Yuen will manage gallbladder as an outpatient at this time, no need for transfer. -on zosyn as above Hypertension -With recent hypotension -atenolol -hold lisinopril -Blood pressures stable now Failed swallow study--keep NPO Resolved: Hypernatremia Acute kidney injury Discussed code status with son Prince over the phone on 10/03. Patient is full code currently. He is ok with ventilator if temporary and ok with CPR. DVT prophylaxis: SCDs Discussed with: nursing, Dr. Garcia Anticipated discharge: undetermined Anticipated discharge place: undetermined A total of 34 minutes was spent on the care of this complex patient more than 50% of the time was spent in counseling and care coordination.
--- NOTE | 2020-10-05 10:30 | P.PN ---
Progress Note - Text Progress Note Date: 10/05/20 Patient's hemoglobin is slightly down from yesterday. He is currently 6.8. We'll 7.2 yesterday. The medical service order a CAT scan. His breathing has improved today. On exam her vital signs are stable. Abdomen soft. His anemia is most likely dilutional. Patient will start oral feeding after his CAT scan has been performed. He may need an NG tube her Dobbhoff placed for tube feeds
--- NOTE | 2020-10-05 10:37 | P.PN ---
Subjective Progress Note Date: 10/05/20 Principal diagnosis: Acute respiratory failure On 10/04/2020 patient seen in follow-up in the intensive care unit. he is lethargic, but opens eyes to voice, he is currently on BiPAP support, with pressures of 12 and 5 and FiO2 of 50%, estimated blood gases were reviewed showing pO2 of 114, pCO2 of 30, and pH is 7.37 and this was done on FiO2 of 50% on BiPAP. He is to be comfortable on today's exam, he is on D5W at a rate of 50 ML per hour, no vasopressor support, his follows simple command, he remains on antibiotics in the form of Zosyn for E. coli bacteremia, his follow-up blood cultures have shown no growth, sputum culture showed no growth. He is in sinus mechanism with a rate of 73 BPM. His chest x-ray shows improved aeration in his right lung. Was given a brief trial off the BiPAP and nasal cannula last night, he was placed back on BiPAP support overnight. Today's labs have been reviewed showing improving white blood cell count which is down to 19.2, hemoglobin is 7.2, sodium is 143, potassium is 3.6, chloride is 117, CO2 is 19, B1 is 33, creatinine is 1.16. Patient has been nothing by mouth, his modified barium swallow has been placed on hold because of BiPAP support. His urine output is in the order of 25-50 ML per hour. he remains on breathing treatments and IV Solu-Medrol, cough or wheezing on today's exam. He has not been able to do the incentive spirometer related to BiPAP support. Overall breathing better, looks more stable. We'll attempt nasal cannula trial this morning again. On 10/05/2020 patient seen in follow-up in the intensive care unit, he was on BiPAP overnight with pressures of 12 and 5 and 50%, this morning she was switched to 10 L high flow nasal cannula. Appears to be short of breath, but no acute distress, no chest pain. His been afebrile, he is on D5W at 50 ML per hour, not in any vasopressor support. Today his hemoglobin is down to 6.8 in the 1 unit of blood has been ordered. Yesterday's hemoglobin was 7.2. CT of the abdomen and pelvis is pending. She has not passed any bowel movements, no abdominal pain. Patient has been nothing by mouth, he has not been able to go to his modified barium swallow which shortness of breath and being BiPAP dependent. No nausea or vomiting. His possibility that patient may need an NG tube placed for tube feedings or enteral feedings if unable to have tube fe edings. Gen. surgery is following, will ask their input. He remains on Zosyn for E. coli bacteremia, his follow-up blood cultures have been negative, his sputum culture has shown no growth, urine culture was negative, his white blood cell count is improving on today's labs, and is down to 11.9, his BUN is 35, creatinine is 1.2. He remains on IV Solu-Medrol. Overall he seems to be breathing better, he remains on nebulized bronchodilators. Objective - Vital Signs Vital signs: Vital Signs Temp 97.4 F L 10/05/20 09:58 Pulse 82 10/05/20 09:58 Resp 26 H 10/05/20 09:58 BP 136/65 10/05/20 09:58 Pulse Ox 98 10/05/20 07:00 Intake & Output 10/04/20 10/05/20 10/05/20 18:59 06:59 18:59 Intake Total 1000 800 50 Output Total 530 500 30 Balance 470 300 20 Weight 55.2 kg 54.8 kg Intake: IV 600 700 50 Dextrose 5% in Water 1, 600 600 50 000 ml @ 50 mls/hr IV . Q20H [facility] Rx#:[id number] levETIRAcetam IV 500 mg 100 In Sodium Chloride 0.9% 100 ml @ 400 mls/hr IVPB Q12H [facility] Rx#:[id number] Intake, IV Titration 400 100 Amount Piperacillin-Tazobactam 3 200 .375 gm In Sodium Chloride 0.9% 100 ml @ 25 mls/hr IVPB Q8HR [facility] Rx# :[id number] Potassium Chloride 10 meq 100 100 In Water For Injection 1 100ml.bag @ 100 mls/hr IVPB Q1H [facility] Rx#: [id number] levETIRAcetam IV 500 mg 100 In Sodium Chloride 0.9% 100 ml @ 400 mls/hr IVPB Q12H [facility] Rx#:[id number] Blood Product 0 Rc As-1 Unit 0 [id number] Output: Drainage 120 120 Left Abdomen 30 40 Right Abdomen 90 80 Urine 410 380 30 Other: Voiding Method Indwelling Catheter Indwelling Catheter ABP, PAP, CO, CI - Last Documented Arterial Blood Pressure 126/118 - Exam GENERAL EXAM: 85-year-old white male Alert, oriented 3, on BiPAP support, with pressures of 12 and 5 and 50%, comfortable in no apparent distress. HEAD: Normocephalic/atraumatic. EYES: Normal reaction of pupils, equal size. Conjunctiva pink, sclera white. NOSE: Clear with pink turbinates. THROAT: No erythema or exudates. NECK: No masses, no JVD, no thyroid enlargement, no adenopathy. CHEST: No chest wall deformity. Symmetrical expansion. LUNGS: Equal air entry with no crackles, wheeze, rhonchi or dullness. CVS: Regular rate and rhythm, normal S1 and S2, no gallops, no murmurs, no rubs ABDOMEN: Soft, mildly tender post surgery. No hepatosplenomegaly, normal bowel sounds, no guarding or rigidity. Midabdominal incision is clean dry and intact EXTREMITIES: No clubbing, no edema, no cyanosis, 2+ pulses and upper and lower extremities. MUSCULOSKELETAL: Muscle strength and tone normal. SPINE: No scoliosis or deformity SKIN: No rashes CENTRAL NERVOUS SYSTEM: Lethargic but arousable to voice currently on BiPAP support, unable to assess verbal responses No focal deficits, tone is normal in all 4 extremities. - Labs CBC & Chem 7: 10/05/20 03:27 10/05/20 03:27 Labs: Abnormal Lab Results - Last 24 Hours (Table) 09/27/20 10/05/20 10/05/20 Range/Units 10:45 03:27 03:27 WBC (3.8-10.6) k/uL RBC (4.30-5.90) m/uL Hgb (13.0-17.5) gm/dL Hct (39.0-53.0) % RDW (11.5-15.5) % Neutrophils # (1.3-7.7) k/uL Lymphocytes # (1.0-4.8) k/uL Chloride 118 H (98-107) mmol/L Carbon Dioxide 18 L (22-30) mmol/L BUN 35 H (9-20) mg/dL Glucose 124 H (74-99) mg/dL Calcium 7.4 L (8.4-10.2) mg/dL Phosphorus 4.6 H (2.5-4.5) mg/dL Magnesium 2.6 H (1.6-2.3) mg/dL Total Protein 4.0 L (6.3-8.2) g/dL Albumin 2.0 L (3.5-5.0) g/dL Crossmatch See Detail 10/05/20 10/05/20 Range/Units 03:27 06:48 WBC 11.9 H (3.8-10.6) k/uL RBC 2.20 L (4.30-5.90) m/uL Hgb 6.8 L* (13.0-17.5) gm/dL Hct 21.0 L (39.0-53.0) % RDW 18.2 H (11.5-15.5) % Neutrophils # 10.9 H (1.3-7.7) k/uL Lymphocytes # 0.5 L (1.0-4.8) k/uL Chloride (98-107) mmol/L Carbon Dioxide (22-30) mmol/L BUN (9-20) mg/dL Glucose (74-99) mg/dL Calcium (8.4-10.2) mg/dL Phosphorus (2.5-4.5) mg/dL Magnesium (1.6-2.3) mg/dL Total Protein (6.3-8.2) g/dL Albumin (3.5-5.0) g/dL Crossmatch See Detail Microbiology - Last 24 Hours (Table) 09/28/20 09:19 Blood Culture - Final Blood No Growth after 144 hours Assessment and Plan Plan: Assessment: #1. Acute splenic rupture following ERCP, status post exploratory laparotomy, splenectomy and lysis of adhesions on 09/27/2020, postoperative day #7 #2. Postoperative routine mechanical ventilator management, with successful extubation on September 29, requiring BiPAP support after extubation, currently on high flow nasal cannula at 10 L #3. Probable aspiration pneumonia involving the right upper lobe in the left upper lobe with significant bronchospasm and worsening respiratory status, currently improving #4. Questionable syncope/seizure #5. E. coli bacteremia secondary to acute ascending cholangitis currently on Zosyn #6. Acute blood loss anemia secondary to splenic rupture requiring 3 units of packed red blood cells, and 1 unit of platelets #7. Acute kidney injury secondary to ATN #8. Postoperative bilateral pleural effusions secondary to aggressive fluid resuscitation and transfusion of blood products #9. History of hyperlipidemia #10. History of gout #11. History of hypertension Plan: CT of the abdomen and pelvis pending to rule out possibility of intra-abdominal bleeding Hemodynamically patient remains stable Will receive 1 unit of packed red blood cells for hemoglobin of 6.8 Continue weaning FiO2 to keep O2 sats ration's at or above 90% Encourage incentive spirometer use Continue breathing treatments steroids and antibiotics No fever or chills leukocytosis is improving GI and DVT prophylaxis BiPAP support as needed Oral bedside swallow evaluation May need NG tube if fails swallow evaluation for tube feedings if cleared by surgery We'll continue to closely monitor in intensive care unit I performed a history & physical examination of the patient and discussed their management with my nurse practitioner, Breanne Maria. I reviewed the nurse practitioner's note and agree with the documented findings and plan of care. Lung sounds are positive for diminished breath sounds throughout the lung bello. The findings and the impression was discussed with the patient. I attest to the documentation by the nurse practitioner. Time with Patient: Greater than 30
--- NOTE | 2020-10-05 13:58 | P.PN ---
Subjective Progress Note Date: 10/05/20 The patient is seen at bedside and per the patient's nurse his condition continues to be the same. He continues to be short of breath and using CPAP for a prolonged peroid of time. He continues to be slurring speech and has to be suctioned. His hemoglobin is 6.8 and is getting blood transfusion. Per nurse no further seizures. Objective - Vital Signs Vital signs: Vital Signs Temp 98.2 F 10/05/20 12:00 Pulse 87 10/05/20 12:00 Resp 28 H 10/05/20 12:00 BP 164/62 10/05/20 12:00 Pulse Ox 98 10/05/20 12:00 Intake & Output 10/04/20 10/05/20 10/05/20 18:59 06:59 18:59 Intake Total 1000 800 400 Output Total 530 500 170 Balance 470 300 230 Weight 55.2 kg 54.8 kg Intake: IV 600 700 300 Dextrose 5% in Water 1, 600 600 300 000 ml @ 50 mls/hr IV . Q20H [facility] Rx#:[id number] levETIRAcetam IV 500 mg 100 In Sodium Chloride 0.9% 100 ml @ 400 mls/hr IVPB Q12H [facility] Rx#:[id number] Intake, IV Titration 400 100 100 Amount Piperacillin-Tazobactam 3 200 100 .375 gm In Sodium Chloride 0.9% 100 ml @ 25 mls/hr IVPB Q8HR [facility] Rx# :[id number] Potassium Chloride 10 meq 100 100 In Water For Injection 1 100ml.bag @ 100 mls/hr IVPB Q1H [facility] Rx#: [id number] levETIRAcetam IV 500 mg 100 In Sodium Chloride 0.9% 100 ml @ 400 mls/hr IVPB Q12H [facility] Rx#:[id number] Blood Product 0 Rc As-1 Unit 0 [id number] Output: Drainage 120 120 Left Abdomen 30 40 Right Abdomen 90 80 Urine 410 380 170 Other: Voiding Method Indwelling Catheter Indwelling Catheter Indwelling Catheter ABP, PAP, CO, CI - Last Documented Arterial Blood Pressure 126/118 - Exam GENERAL: The patient is lying in bed and is seems in some distress. LUNG: Seems short of breath and is on oxygen via nasal canuli. NEUROLOGICAL: Higher mental function: The patient is drowsy but is awakeable. He is oriented to self only. He does not follow commands. Cranial nerves: The pupils are round, equal and reactive to light. The facial strength is normal throughout. He does track throughout the room. He has dysarthria. Motor: The strength is moving all extremities above gravity. He has mitt cuff over the left. He withdrawls equally over the lowers. Cerebellum: Could not assess Sensation: Could not assess. Reflexes (right/left):2+ throughout except patellar are 3+ bilaterally. Plantars are downgoing bilaterally. WORK-UP: CT of the head on 10/01/2020 is reported as cerebral atrophy. No acute intracranial abnormality. Routine EEG on 10/02/20: Is an abnormal routine EEG. The background slowing is suggestive of mild encephalopathy. There are no focal slowing, epileptiform discharges or seizure on the EEG. TSH: 2.79 (normal). Ionized calcium 4.9 (normal). AST of 30 and ALT of 26. Ammonia level on 10/01/2020 is less than 9. - Labs CBC & Chem 7: 10/05/20 03:27 10/05/20 03:27 Labs: Abnormal Lab Results - Last 24 Hours (Table) 09/27/20 10/05/20 10/05/20 Range/Units 10:45 03:27 03:27 WBC (3.8-10.6) k/uL RBC (4.30-5.90) m/uL Hgb (13.0-17.5) gm/dL Hct (39.0-53.0) % RDW (11.5-15.5) % Neutrophils # (1.3-7.7) k/uL Lymphocytes # (1.0-4.8) k/uL Chloride 118 H (98-107) mmol/L Carbon Dioxide 18 L (22-30) mmol/L BUN 35 H (9-20) mg/dL Glucose 124 H (74-99) mg/dL Calcium 7.4 L (8.4-10.2) mg/dL Phosphorus 4.6 H (2.5-4.5) mg/dL Magnesium 2.6 H (1.6-2.3) mg/dL Total Protein 4.0 L (6.3-8.2) g/dL Albumin 2.0 L (3.5-5.0) g/dL Crossmatch See Detail 10/05/20 10/05/20 Range/Units 03:27 06:48 WBC 11.9 H (3.8-10.6) k/uL RBC 2.20 L (4.30-5.90) m/uL Hgb 6.8 L* (13.0-17.5) gm/dL Hct 21.0 L (39.0-53.0) % RDW 18.2 H (11.5-15.5) % Neutrophils # 10.9 H (1.3-7.7) k/uL Lymphocytes # 0.5 L (1.0-4.8) k/uL Chloride (98-107) mmol/L Carbon Dioxide (22-30) mmol/L BUN (9-20) mg/dL Glucose (74-99) mg/dL Calcium (8.4-10.2) mg/dL Phosphorus (2.5-4.5) mg/dL Magnesium (1.6-2.3) mg/dL Total Protein (6.3-8.2) g/dL Albumin (3.5-5.0) g/dL Crossmatch See Detail Microbiology - Last 24 Hours (Table) 09/28/20 09:19 Blood Culture - Final Blood No Growth after 144 hours Assessment and Plan Assessment: * One reported myoclonic seizure-like on 10/01/2020 and episodes of intermittent focal motor jerking of the left lower extremity (but responsive for jerking of leg). Seems suspicious for seizure. Possibly provoked from underlying sepsis/metabolic. No documented history of seizure---no further episodes * Altered mental status due to septic encephalopathy--mentation improving * E. 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 * Recommend prolonged EEG as outpatient (if jerking of legs are captured and no epileptiform or seizure on the EEG then recommend discontinuing seizure medication). * Will get repeat CT head since he continues to be altered and is dysarthria to see if any changes compared to prior study. Possibly consider MRI Brain once patient is stable (can be done as outpatient. He does not seem he will lie still as inpatient currently). * Infection disease team is on board. * We'll defer the rest of the medical management to the primary team and ICU team. The plan is discussed with the patient's nurse. Will follow-up with the patient sporadically. Dr. Valdovinos will take over neurology service starting tomorrow AM. Satya Garcia M.D. Neuro-hospitalist Time with Patient: Less than 30
[2020-10-05] MEDS: LORazepam 2 MG/ML INJ IV PRN (14:42)
--- NOTE | 2020-10-05 15:09 | CT ---
EXAMINATION TYPE: CT abdomen pelvis wo con DATE OF EXAM: 10/05/2020 COMPARISON: 09/27/2020 HISTORY: R/O bleeding, Low HGB TECHNIQUE: CT scan of the abdomen and pelvis performed without contrast CT DLP: 423.9 mGycm Automated exposure control for dose reduction was used. FINDINGS: Lack of intravenous or oral contrast precludes evaluation for bleeding and limits evaluation of the v ascular and solid organs. Lack of oral contrast limits evaluation of the GI tract. There is also guy on and streak artifact which further limits evaluation of the abdomen and pelvis. Moderate bilateral pleural effusion increased in size compared to prior study. Groundglass opacities in the bilateral upper lobes and subsegmental atelectasis in the lower lobes seen. Cannot exclude und erlying lower lobe infiltrates pneumonia. Coronary arterial and valvular calcifications seen. Low attenuation of the cardiac chambers suggests anemia. Somewhat nodular appearance of the liver which could be on the basis of cirrhosis. Calcified gallbladder stones seen. Mild prominence of the intrahepatic biliary tree. The spleen is not seen. Adrenal glands are not enlarged. Pancreas is not enlarged. There is no hydronephrosis or renal calculi. There is a Eyl's in the urinary bladder. Perinephric s tranding noted. Significant motion precludes adequate evaluation of the GI. There is no obvious bowel obstruction. Th ere is left colonic diverticulosis. Extensive stranding and edema demonstrated in the peritoneum. No evidence of free abdominal air. There is a surgical drain extending from the right lower abdomen to the presacral space posterior to the rectum. A second surgical drain enters through the left lower abdomen extends superiorly the tip terminates in the left upper abdomen between the left diaphragmatic catherine and gastric fundus. 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 Atherosclerotic calcifications are demonstrated in the wall of the thoracic and abdominal aorta. Intraperitoneal and pelvic lymph nodes noted likely reactive. A calcified lesion in the left lower ab domen was seen on prior study may represent a calcified lymph node. No acute osseous abnormality. Severe degenerative changes again seen in the lumbar spine including po sterior translation of L5 over S1. IMPRESSION: 1. STATUS POST SURGICAL REMOVAL OF SPLEEN. 2. MODERATE BILATERAL PLEURAL EFFUSIONS INCREASED IN SIZE. 3. GROUNDGLASS OPACITIES IN THE LUNGS COULD BE ON THE BASIS OF INFECTION OR ATELECTASIS OR EDEMA. 4. SURGICAL DRAINS ABDOMEN DESCRIBED ABOVE. 5. STRANDING AND SMALL AMOUNT OF PERITONEAL FLUID COULD BE POSTSURGICAL. 6. CANNOT EXCLUDE BLEEDING ON NONCONTRAST STUDY THAT IS ESPECIALLY LIMITED DUE TO MOTION AND STREAK. 7. SOMEWHAT NODULAR APPEARANCE TO THE LIVER, CLINICAL CORRELATION FOR CIRRHOSIS RECOMMENDED. MINIMAL INTRAHEPATIC DUCTAL DILATATION. 8. CHOLELITHIASIS. 9. COLONIC DIVERTICULOSIS, CANNOT EXCLUDE ACUTE DIVERTICULITIS DUE TO THE EXTENSIVE STRANDING WHICH I S LIKELY POSTSURGICAL. 10. PERINEPHRIC STRANDING WHICH COULD ALSO BE RELATED SURGERY CORRELATE CLINIC ALLY FOR MEDICAL RENAL DISEASE.
[2020-10-05] MEDS: hydrALAZINE HCL 20 MG/ML 1 ML VIAL IVP PRN (15:37)
--- NOTE | 2020-10-05 15:38 | CT ---
EXAMINATION TYPE: CT brain wo con DATE OF EXAM: 10/05/2020 COMPARISON: 10/01/2020 HISTORY: Mental status changes. CT DLP: 1202.4 mGycm Automated exposure control for dose reduction was used. There is cerebral atrophy. There is no mass effect nor midline shift. There is no sign of intracrania l hemorrhage. The calvarium is intact. There is normal aeration of the mastoid sinuses. IMPRESSION: Negative CT scan of the brain. Cerebral atrophy. No change.
[2020-10-05 16:30] LABS: Anisocytosis Slight; HCT 28.6 % (39.0-53.0); HGB 9.5 gm/dL (13.0-17.5); Hypochromasia Slight; MCH 30.3 pg (25.0-35.0); MCHC 33.1 g/dL (31.0-37.0); MCV 91.7 fL (80.0-100.0); Platelet Count 323 k/uL (150-450); Poikilocytosis Slight; RBC 3.12 m/uL (4.30-5.90); RDW 17.8 % (11.5-15.5); WBC 17.2 k/uL (3.8-10.6)
--- NOTE | 2020-10-05 19:59 | PN ---
PROGRESS NOTE DATE OF SERVICE: 10/05/2020 REASON FOR FOLLOWUP: 1. Pneumonia. 2. E coli bacteremia, possible cholangitis. INTERVAL HISTORY: Patient did have a drop in hemoglobin this morning. White count did drop as well. The patient did have a CT of abdomen and pelvis with no evidence of any bleed. Patient is slightly lethargic, requiring a BiPAP. He is hemodynamically stable, not on any pressor support. No vomiting or diarrhea reported by the nursing staff. PHYSICAL EXAMINATION: Blood pressure is 160/59 with a pulse of 96, temperature 98.4. He is 95% on BiPAP. GENERAL DESCRIPTION: Is an elderly male lying in bed in no distress. RESPIRATORY SYSTEM: Unlabored breathing, coarse breath sounds bilaterally. No wheeze. HEART: S1, S2. Regular rate and rhythm. ABDOMEN: Soft, no distention. No guarding or rigidity. LABS: Hemoglobin is 9.5, white count 11.9, BUN of 35, creatinine 1.20. DIAGNOSTIC IMPRESSION AND PLAN: Patient with admission to the hospital with weakness, dizziness, and this patient did have a splenic rupture status post splenectomy. Did have E coli bacteremia, concern for cholangitis and subsequently did have an episode of aspiration pneumonitis. Patient is covered with Zosyn. Drop in hemoglobin. CT of abdomen and pelvis did not show any convincing evidence of a bleed and will monitor clinical course closely. MMODL / IJN: [id number] /
[2020-10-06] MEDS: PIPERACILLIN-TAZOBACTAM 3.375 GM in SODIUM CHLORIDE 0.9% 100 ML IVPB SCH ×4 (00:30→23:51)
[2020-10-06] MEDS: METOPROLOL TARTRATE 5 MG/5 ML VIAL IVP SCH ×5 (00:55→23:50)
[2020-10-06] MEDS: methylPREDNISolone SOD SUCCI 40 MG/ML 1 ML VIAL IV SCH ×4 (00:55→23:50)
[2020-10-06] MEDS: LORazepam 2 MG/ML INJ IV PRN (02:05)
[2020-10-06] MEDS: DEXTROSE 5% IN WATER 1,000 ML IV SCH (03:05)
[2020-10-06] MEDS: levETIRAcetam IV 500 MG in SODIUM CHLORIDE 0.9% 100 ML IVPB SCH ×2 (04:50→15:07)
[2020-10-06 05:08] LABS: Calcium 7.8 mg/dL (8.4-10.2); Magnesium 2.6 mg/dL (1.6-2.3); Phosphorus 3.8 mg/dL (2.5-4.5); Potassium 3.9 mmol/L (3.5-5.1)
[2020-10-06] MEDS: IPRATROPIUM-ALBUTEROL 3 ML NEB INHALATION SCH ×4 (08:28→20:28)
[2020-10-06] MEDS: BUDESONIDE 1 MG/2 ML NEBU INHALATION SCH ×2 (08:28→20:28)
[2020-10-06] MEDS: FORMOTEROL FUMARATE 20 MCG/2 ML NEBU INHALATION SCH ×2 (08:28→20:28)
[2020-10-06 08:43] LABS: INR 1.1 (<1.2); Prothrombin Time 11.1 sec (9.0-12.0)
[2020-10-06 08:51] LABS: Anisocytosis Slight; Basophils % (A) 0 %; Eosinophils % (A) 0 %; HCT 30.3 % (39.0-53.0); HGB 9.9 gm/dL (13.0-17.5); Hypochromasia Slight; Lymphocytes # (A) 0.4 k/uL (1.0-4.8); Lymphocytes % (A) 3 %; MCH 30.6 pg (25.0-35.0); MCHC 32.5 g/dL (31.0-37.0); MCV 94.1 fL (80.0-100.0); Mean Platelet Volume 8.7; Monocytes # (A) 0.3 k/uL (0-1.0); Monocytes % (A) 3 %; Neutrophils # (A) 11.2 k/uL (1.3-7.7); Neutrophils % (A) 94 %; Platelet Count 366 k/uL (150-450); Poikilocytosis Slight; RBC 3.23 m/uL (4.30-5.90); RDW 17.9 % (11.5-15.5)
[2020-10-06] MEDS: FAMOTIDINE 20 MG/2 ML VIAL IV SCH (08:56)
[2020-10-06] MEDS: POTASSIUM CHLORIDE 10 MEQ in WATER FOR INJECTION 1 100ML.BAG IVPB SCH ×2 (08:56→10:49)
[2020-10-06] MEDS ORDERED: SODIUM CHLORIDE 0.9% 1,000 ML IV ONE ×2 (09:12→18:14)
--- NOTE | 2020-10-06 09:13 | P.PN ---
Subjective Progress Note Date: 10/06/20 This is an 85-year-old white male with 1 day history of right upper quadrant pain, presented initially to the hospital on 09/24/2020, patient was diagnosed as having choledocholithiasis and ascending cholangitis. Patient was seen by gastroenterology on consultation, and he underwent attempted ERCP, however the ERCP was difficult, and could not be diagnostic or therapeutic. This was done on 09/25, and according to the note by the land surveyor multiple attempts were made to advance the scope into the duodenum and visualizing the ampullary orifice was not successful. Hence ERCP was not performed. The land surveyor recommended referral to [facility] for ERCP. Surgery was consulted on the patient on 09/25/2020, and the patient was seen by Dr. Fried. He recommended laparoscopic cholecystectomy and this was supposed to be scheduled on 09/29/2020. In the meantime the patient was found to have E. coli bacteremia and he was on antibiotics all along. On 09/27/2020, patient was noted to have significant blood loss anemia, CT of the abdomen and pelvis showed splenic fracture. Hence Dr. Turcios saw the patient on consultation, and the patient underwent emergency exploratory laparotomy, extensive lysis of adhesions, open splenectomy with control of bleeding, evacuation of hemoperitoneum, application of a wound VAC system, placement of a ANDREA drain in the left splenic fossa and right at pelvis. Due to the emergency situation, open cholecystectomy was not performed, patient was transfused, required a total of 3 units of packed RBCs The patient is postop day #8. The patient was extubated off the mechanical ventilator on 09/29/2020 and the patient has required BiPAP postextubation currently the patient is on high flow oxygen 10 L per minute nasal cannula. There is a concern for an an aspiration of the right upper lobe. Noted the patient was requiring also BiPAP for respiratory support in the BiPAP was utilized pressure of 12/5 cm of water and FiO2 of 50% alternating with high flow oxygen. The patient is currently bacteremic secondary to a component of asc ending cholangitis and the patient is currently on IV Zosyn. The patient also developed an acute kidney injury secondary to ATN. On yesterday's evaluation hemoglobin was at 6.8 and the patient received a unit of packed RBC. The CAT scan of the abdomen was also done showing postsplenectomy changes, moderate bilateral pleural effusion increased in size, round vasopressin the lungs could be related to interstitial edema, moderate appearance of the liver, cholelithiasis, colonic diverticulosis, perinephric stranding. The patient has not passed any bowel movements. No abdominal pain. The patient remains nothing by mouth. She hasn't been able to perform a modified barium swallow as the yogesh ent was quite BiPAP dependent earlier last week. Her white cell count was improving. A from today still showing upper lobe bilateral pulmonary infiltrates right more than left. Lower lungs are essentially more preserved. The patient is currently on oxygen at 8 L per minute nasal cannula. Blood work from today shows a white cell count of 12 with a hemoglobin of 9.9 which is stable compared to yesterday. The serum bicarb is at 19 with a mean of 38 and a creatinine of 1.1. No signs of any GI bleed. The patient remains nothing by mouth. The patient remains quite lethargic and somnolent, responsive to pain only, not to verbal and not following any commands. His breathing is more labored on today's evaluation and he has a deep congested cough, unable to bring up much sputum. His aspiration is in the mid 30s. Abdominal wound is dry clean and intact. ANDREA drains are in place. Output at 20-40cc/hr Objective - Vital Signs Vital signs: Vital Signs Temp 97.4 F L 10/06/20 08:00 Pulse 68 10/06/20 08:49 Resp 22 10/06/20 08:00 BP 159/72 10/06/20 08:00 Pulse Ox 95 10/06/20 08:28 Intake & Output 10/05/20 10/06/20 10/06/20 18:59 06:59 18:59 Intake Total 1210 700 100 Output Total 430 330 140 Balance 780 370 -40 Weight 54.2 kg Intake: IV 600 700 100 Dextrose 5% in Water 1, 600 600 100 000 ml @ 50 mls/hr IV . Q20H [facility] Rx#:[id number] levETIRAcetam IV 500 mg 100 In Sodium Chloride 0.9% 100 ml @ 400 mls/hr IVPB Q12H [facility] Rx#:[id number] Intake, IV Titration 300 Amount Piperacillin-Tazobactam 3 200 .375 gm In Sodium Chloride 0.9% 100 ml @ 25 mls/hr IVPB Q8HR [facility] Rx# :[id number] levETIRAcetam IV 500 mg 100 In Sodium Chloride 0.9% 100 ml @ 400 mls/hr IVPB Q12H [facility] Rx#:[id number] Blood Product 310 Rc As-1 Unit 310 [id number] Output: Drainage 50 60 Left Abdomen 40 Right Abdomen 10 60 Urine 380 270 140 Other: Voiding Method Indwelling Catheter Indwelling Catheter ABP, PAP, CO, CI - Last Documented Arterial Blood Pressure 126/118 - Exam GENERAL EXAM: 85-year-old white male , lethargic, obtunded, not following any commands, breathing seems to be labored as the patient is using his chest and abdominal muscles of breathing. Is currently on oxygen at 8 L HEAD: Normocephalic/atraumatic. EYES: Normal reaction of pupils, equal size. Conjunctiva pink, sclera white. NOSE: Clear with pink turbinates. THROAT: No erythema or exudates. NECK: No masses, no JVD, no thyroid enlargement, no adenopathy. CHEST: No chest wall deformity. Symmetrical expansion. LUNGS: Equal air entry with no crackles, wheeze, rhonchi or dullness. CVS: Regular rate and rhythm, normal S1 and S2, no gallops, no murmurs, no rubs ABDOMEN: Soft, mildly tender post surgery. No hepatosplenomegaly, normal bowel sounds, no guarding or rigidity. Midabdominal incision is clean dry and intact ANDREA drain output is serosanguineous, 65 mL from the left and none from right EXTREMITIES: No clubbing, no edema, no cyanosis, 2+ pulses and upper and lower extremities. MUSCULOSKELETAL: Muscle strength and tone normal. SPINE: No scoliosis or deformity SKIN: No rashes CENTRAL NERVOUS SYSTEM: Lethargic but arousable to voice currently on BiPAP support, unable to assess verbal responses No focal deficits, tone is normal in all 4 extremities. He does known an ingrown was stimulated. Does not follow any commands. Withdrawing all 4 extremities to painful stimulation. - Labs CBC & Chem 7: 10/06/20 08:06 10/06/20 03:33 Labs: Abnormal Lab Results - Last 24 Hours (Table) 10/05/20 10/05/20 10/06/20 Range/Units 06:48 16:10 03:33 WBC 17.2 H (3.8-10.6) k/uL RBC 3.12 L (4.30-5.90) m/uL Hgb 9.5 L D (13.0-17.5) gm/dL Hct 28.6 L (39.0-53.0) % RDW 17.8 H (11.5-15.5) % Neutrophils # (1.3-7.7) k/uL Lymphocytes # (1.0-4.8) k/uL Chloride 117 H (98-107) mmol/L Carbon Dioxide 19 L (22-30) mmol/L BUN 38 H (9-20) mg/dL Calcium 7.8 L (8.4-10.2) mg/dL Magnesium 2.6 H (1.6-2.3) mg/dL Crossmatch See Detail 10/06/20 Range/Units 08:06 WBC 12.0 H (3.8-10.6) k/uL RBC 3.23 L (4.30-5.90) m/uL Hgb 9.9 L (13.0-17.5) gm/dL Hct 30.3 L (39.0-53.0) % RDW 17.9 H (11.5-15.5) % Neutrophils # 11.2 H (1.3-7.7) k/uL Lymphocytes # 0.4 L (1.0-4.8) k/uL Chloride (98-107) mmol/L Carbon Dioxide (22-30) mmol/L BUN (9-20) mg/dL Calcium (8.4-10.2) mg/dL Magnesium (1.6-2.3) mg/dL Crossmatch Assessment and Plan Plan: #1. Acute splenic rupture following ERCP, status post exploratory laparotomy, splenectomy and lysis of adhesions on 09/27/2020, postoperative day #8 #2. Postoperative routine mechanical ventilator management, with successful extubation on September 29, requiring BiPAP support after extubation, currently on high flow nasal cannula at 8 L alternating with Bipap #3. Aspiration pneumonia involving the right upper lobe in the left upper lobe #4. Questionable syncope/seizure #5. E. coli bacteremia secondary to acute ascending cholangitis currently on Zosyn #6. Acute blood loss anemia secondary to splenic rupture requiring 3 units of packed red blood cells, and 1 unit of platelets post op. Note that there was further drop in hemoglobin yesterday and the patient received a unit of packed RBC and hemoglobin is stable for now. #7. Acute kidney injury secondary to ATN, improved and the creatinine is down to 1.1 #8. Postoperative bilateral pleural effusions secondary to aggressive fluid resuscitation and transfusion of blood products #9. History of hyperlipidemia #10. History of gout #11. History of hypertension #12 chronic diverticulosis 13 altered mentation, CAT scan of the brain is negative. The patient may have a component of metabolic encephalopathy secondary to above. He was also being given Ativan 0.5 mg every 6 hours for agitation graft plan A blood gas to be checked for now to assess his acid base status, PEEP of 8 L Check ammonia level from this morning and the level was less than Hold Ativan Will monitor him very closely, may need intubation mechanical ventilation IV fluids at 75 mL an hour D5 normal saline IV Zosyn Continue Keppra for any potential seizure activity Wound is dry clean and intact We'll continue to follow. Condition is critical. High-risk for requiring intubation mechanical ventilation. The patient nothing by mouth for now. We'll give most of bolus of 1 L
[2020-10-06 09:49] LABS: ABG Base Excess -7.7 mmol/L; ABG HCO3 18 mmol/L (21-25); ABG PCO2 35 mmHg (35-45); ABG PH 7.33 (7.35-7.45); ABG PO2 90 mmHg (83-108); ABG TCO2 19 mmol/L (19-24); Allen Test Performed? Yes
[2020-10-06] MEDS: DEXTROSE 5%-0.9% NACL 1,000 ML IV SCH ×2 (10:41→23:50)
[2020-10-06] MEDS: hydrALAZINE HCL 20 MG/ML 1 ML VIAL IVP PRN (10:50)
[2020-10-06] MEDS ORDERED: LIDOCAINE 1% INJ 10MG/ML (20 ML MDV) SQ ONE (10:58)
--- NOTE | 2020-10-06 11:38 | XR ---
EXAMINATION TYPE: XR chest 1V confirm line [facility] DATE OF EXAM: 10/06/2020 HISTORY: Shortness of breath. COMPARISON: 10/05/2020 TECHNIQUE: Single view of the chest is submitted. FINDINGS: Left-sided PICC line with distal tip overlying the SVC. Perihilar and upper lobe infiltrates persist without significant change. The heart is stable. Hilar and mediastinal structures are within normal limits. Degenerative changes are seen of the dorsal spine. IMPRESSION: 1. Perihilar and upper lobe infiltrates persist without significant change.
--- NOTE | 2020-10-06 12:36 | P.PN ---
Subjective Progress Note Date: 10/06/20 Principal diagnosis: abdominal pain Patient is an 85-year-old male with a past medical history of hypertension and peripheral arterial disease. He had been found to have elevated liver enzymes and has been being worked up as an outpatient basis. Patient had a liver ul trasound and MRCP which suggested cholestasis with multiple gallstones. Patient presented to the emergency department on 09/24/20 with a chief complaint of right upper quadrant abdominal pain 1 day associated with nausea, vomiting, and diarrhea. Patient admitted under our services for acute ascending cholangitis with transaminitis and HERMELINDO. Abdominal ultrasound completed revealing numerous gallstones. Patient was under leukocytosis with a WBC count of 17.1, anemia with hemoglobin of 10.8, and thrombocytopenia with platelet count of 104,000. Acute kidney injury with BUN of 38, creatinine 1.63, and GFR of 38 with baseline hemoglobin of 1.2. Patient was taken for ERCP on 09/[address] Huang, however it was reported that scope could not be advanced due to periampullary diverticulum and patient will need to be transferred to [facility] to have ERCP completed. Call was made to transfer center and patient was accepted for transfer at [facility] by Dr. Wolfe. Patient was awaiting a bed assignment for transfer to be completed. Blood cultures positive for E. coli, patient provided coverage with continued use of IV antibiotics: Zosyn. His hemoglobin acutely dropped on the morning of 09/27 from 9.5-6.7. This was confirmed on repeat blood draw. He was taken down for emergent CT abdomen and pelvis which showed splenic rupture with possible hemorrhage into the pelvis. Surgery was contacted and the patient emergently went to the OR. 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 2 ANDREA drains were placed. Patient return to the ICU intubated and was successfully extubated on 09/29 and did have some confusion. This continued to worsen. He did not passes swallow evaluation initially. He then had some w orsening of his respiratory status requiring BiPAP therapy. He had possible seizure activity noted, neuro consulted and EEG noted swelling but no epileptiform activity. Neurology has recommended continued Keppra and outpatient prolonged EEG, unable to obtain MRI secondary to restlessness. Repeat head CT with no acute process. He underwent a CT abdomen and pelvis on 10/05 due to low HgB that showed moderate bilateral pleural effusions and groundglass opacities in the lungs, surgical drainage tubes, and a small amount of peritoneal fluid. Again he demonstrated cholelithiasis and a nodular ap pearance to the liver. Patient seen and examined at bedside. Lethargic, opens eyes to sternal rub and immediately falls back asleep. States what. General: non toxic, no distress, appears younger than stated age Derm: warm, dry Head: atraumatic, normocephalic, symmetric Eyes: Pupils equal round reactive to light, no lid lag, anicteric sclera Mouth: no lip lesion, mucus membranes moist Cardiovascular: S1S2 reg with grade 2 systolic ejection murmur, positive posterior tibial pulse bilateral, Lungs: Decreasing bilateral, no rhonchi, no rales , no accessory muscle use, on vent Abdominal: soft, nondistended, +TTP diffusely, no appreciable organomegaly, dressing over midline incision, Ext: no gross muscle atrophy, no edema, no contractures Neuro: Moving all 4 extremities independently, no focal neuro deficits noted. Psych: Lethargic, awakes to touch Acute ascending cholangitis with E. coli bacteremia acute respiratory failure secondary to aspiration pneumonia, probable gram- negative Toxic metabolic encephalopathy -Outpatient MRCP revealed choledocholithiasis with possible obstructive jaundice pattern. -Patient was taken for ERCP on 09/25/[address] Huang, however it was reported that scope could not be advanced. D/W Dr. Yuen and will manage gallbladder as an outpatient at this time, no need for transfer. -Plans will be for outpatient laparoscopic cholecystectomy once acute illness improved. -Repeat blood cultures are negative to date -Zosyn, ID recs -Wean O2 as able -Pulmonary recommendations -Pulmonary hygiene, bronchodilators Splenic rupture with acute blood loss anemia, thrombocytopenia, hypovolemic shock, resolved - s/p 3 units of pRBC and 1 unit of plt - surgery recs -Plan will be for immunization prior to discharge from hospital for day 14 whichever comes first. Patient will need strep pneumonia vaccine, meningitis, and Haemophilus influenza B prior to discharge. Possible seizure versus myoclonic jerking -Neurology recommendations appreciated -Continue with Keppra -Outpatient prolonged EEG to determine if antiepileptic medication will continue to be needed Acute kidney injury, resolved - baseline creatinine of 1.2. -Hold nephrotoxic medications -Continue to hold lisinopril secondary to recent hypotension requiring norepinephrine. Hypertension -With recent hypotension -atenolol -hold lisinopril -Follow blood pressures Dysphagia - failed swallow study. speech evaluation and MBS on hold due to intermitted BiPap requirements Hypernatremia, resolved DVT prophylaxis: SCDs Discussed with: nursing Anticipated discharge: undetermined Anticipated discharge place: undetermined A total of 34 minutes was spent on the care of this complex patient more than 50% of the time was spent in counseling and care coordination. Objective - Vital Signs Vital signs: Vital Signs Temp 97.4 F L 10/06/20 08:00 Pulse 92 10/06/20 11:41 Resp 33 H 10/06/20 11:30 BP 127/80 10/06/20 11:30 Pulse Ox 96 10/06/20 11:00 Intake & Output 10/05/20 10/06/20 10/06/20 18:59 06:59 18:59 Intake Total 6137 860 1489 Output Total 430 330 222 Balance 339 521 4499 Weight 54.2 kg Intake: IV 567 486 0834 Dextrose 5% in Water 1, 600 600 200 000 ml @ 50 mls/hr IV . Q20H [facility] Rx#:[id number] Dextrose 5%-0.9% NaCl 1, 75 000 ml @ 75 mls/hr IV . [id number] [facility] Rx#:[id number] Sodium Chloride 0.9% 1, 1000 000 ml @ 999 mls/hr IV . Q1H1M [facility] Rx#:[id number] levETIRAcetam IV 500 mg 100 In Sodium Chloride 0.9% 100 ml @ 400 mls/hr IVPB Q12H [facility] Rx#:[id number] Intake, IV Titration 300 Amount Piperacillin-Tazobactam 3 200 .375 gm In Sodium Chloride 0.9% 100 ml @ 25 mls/hr IVPB Q8HR [facility] Rx# :[id number] levETIRAcetam IV 500 mg 100 In Sodium Chloride 0.9% 100 ml @ 400 mls/hr IVPB Q12H [facility] Rx#:[id number] Blood Product 310 Rc As-1 Unit 310 [id number] Output: Drainage 50 60 Left Abdomen 40 Right Abdomen 10 60 Urine 380 270 222 Other: Voiding Method Indwelling Catheter Indwelling Catheter Indwelling Catheter ABP, PAP, CO, CI - Last Documented Arterial Blood Pressure 126/118 - Labs CBC & Chem 7: 10/06/20 08:06 10/06/20 03:33 Labs: Abnormal Lab Results - Last 24 Hours (Table) 10/05/20 10/05/20 10/06/20 Range/Units 06:48 16:10 03:33 WBC 17.2 H (3.8-10.6) k/uL RBC 3.12 L (4.30-5.90) m/uL Hgb 9.5 L D (13.0-17.5) gm/dL Hct 28.6 L (39.0-53.0) % RDW 17.8 H (11.5-15.5) % Neutrophils # (1.3-7.7) k/uL Lymphocytes # (1.0-4.8) k/uL ABG pH (7.35-7.45) ABG HCO3 (21-25) mmol/L Chloride 117 H (98-107) mmol/L Carbon Dioxide 19 L (22-30) mmol/L BUN 38 H (9-20) mg/dL Calcium 7.8 L (8.4-10.2) mg/dL Magnesium 2.6 H (1.6-2.3) mg/dL Crossmatch See Detail 10/06/20 10/06/20 Range/Units 08:06 09:47 WBC 12.0 H (3.8-10.6) k/uL RBC 3.23 L (4.30-5.90) m/uL Hgb 9.9 L (13.0-17.5) gm/dL Hct 30.3 L (39.0-53.0) % RDW 17.9 H (11.5-15.5) % Neutrophils # 11.2 H (1.3-7.7) k/uL Lymphocytes # 0.4 L (1.0-4.8) k/uL ABG pH 7.33 L (7.35-7.45) ABG HCO3 18 L (21-25) mmol/L Chloride (98-107) mmol/L Carbon Dioxide (22-30) mmol/L BUN (9-20) mg/dL Calcium (8.4-10.2) mg/dL Magnesium (1.6-2.3) mg/dL Crossmatch
--- NOTE | 2020-10-06 12:50 | P.PN ---
Subjective Progress Note Date: 10/06/20 CHIEF COMPLAINT: Right upper quadrant abdominal pain HISTORY OF PRESENT ILLNESS: Patient admitted to the hospital for ascending cholangitis. He was in transition for transfer to [facility] for def initive ERCP for common bile duct obstruction when he developed acute blood loss anemia and CT findings of ruptured spleen. 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 Patient remains in the ICU. He is nothing by mouth he has failed swallow evaluations. Patient has PICC line in place. And will be started on TPN. Patient has congested cough. He had a computed tomography scan of the abdomen and pelvis on October 05 showing status post surgical removal spleen. Moderate bilateral pleural effusions increased in size. Groundglass opacities in the lungs. Stranding and small amount of peritoneal fluid could be postsurgical. Somewhat nodular appearance to the liver, clinical correlation for cirrhosis is recommended. Minimal intrahepatic ductal dilation. Cholelithiasis. Colonic diverticulosis. Perinephric stranding which could be related to surgery. Correlate for medical renal disease. Patient is afebrile. 5 L nasal cannula satting at 96% WBC is down from 17.2-12 hemoglobin is 9.9 creatinine 1.13 PHYSICAL EXAM: VITAL SIGNS: Reviewed. GENERAL: Well-developed in no acute distress. HEENT: No sclera icterus. Extraocular movements grossly intact. Moist buccal mucosa. Head is atraumatic, normocephalic. ABDOMEN: Soft. Incision site clean dry and intact. 2 ANDREA drains with serosanguineous output. 65 mL output through right drain and 0 output through left drain NEUROLOGIC: Lethargic ASSESSMENT: 1. Acute splenic rupture of unclear etiology. Status post Exploratory laparotomy with extensive lysis of adhesions, open splenectomy, evacuation of hemoperitoneum, Application of incisional wound VAC system and Placement of Ja ckson-Grullon drains 2. Acute blood loss anemia due to splenic rupture 3. Ascending cholangitis with bacteremia 4. Symptomatic gallstone 5. Thrombocytopenia 6. Possible seizure 7. Acute kidney injury 8. Dysphagia 9. Aspiration pneumonia 10. Bilateral pleural effusions PLAN: -Consult dietitian to start TPN for nutrition support -Continue ICU management and supportive care -Will need immunizations for post-splenectomy management in 10 to 14 days, otherwise, 10/07/20 to 10/12/20. May also benefit from COVID vaccination. -Cholecystectomy deferred -Encourage incentive spirometry use -Continue antibiotics per ID Physician Advertising Supervisor note has been reviewed by physician. Signing provider agrees with the documented findings, assessment, and plan of care. Objective - Vital Signs Vital signs: Vital Signs Temp 97.4 F L 10/06/20 08:00 Pulse 92 10/06/20 11:41 Resp 33 H 10/06/20 11:30 BP 127/80 10/06/20 11:30 Pulse Ox 96 10/06/20 11:00 Intake & Output 10/05/20 10/06/20 10/06/20 18:59 06:59 18:59 Intake Total 3329 932 8530 Output Total 430 330 222 Balance 691 904 9193 Weight 54.2 kg Intake: IV 026 044 4870 Dextrose 5% in Water 1, 600 600 200 000 ml @ 50 mls/hr IV . Q20H [facility] Rx#:[id number] Dextrose 5%-0.9% NaCl 1, 75 000 ml @ 75 mls/hr IV . [id number] [facility] Rx#:[id number] Sodium Chloride 0.9% 1, 1000 000 ml @ 999 mls/hr IV . Q1H1M [facility] Rx#:[id number] levETIRAcetam IV 500 mg 100 In Sodium Chloride 0.9% 100 ml @ 400 mls/hr IVPB Q12H [facility] Rx#:[id number] Intake, IV Titration 300 Amount Piperacillin-Tazobactam 3 200 .375 gm In Sodium Chloride 0.9% 100 ml @ 25 mls/hr IVPB Q8HR [facility] Rx# :[id number] levETIRAcetam IV 500 mg 100 In Sodium Chloride 0.9% 100 ml @ 400 mls/hr IVPB Q12H [facility] Rx#:[id number] Blood Product 310 Rc As-1 Unit 310 [id number] Output: Drainage 50 60 Left Abdomen 40 Right Abdomen 10 60 Urine 380 270 222 Other: Voiding Method Indwelling Catheter Indwelling Catheter Indwelling Catheter ABP, PAP, CO, CI - Last Documented Arterial Blood Pressure 126/118 - Labs CBC & Chem 7: 10/06/20 08:06 10/06/20 03:33 Labs: Abnormal Lab Results - Last 24 Hours (Table) 10/05/20 10/05/20 10/06/20 Range/Units 06:48 16:10 03:33 WBC 17.2 H (3.8-10.6) k/uL RBC 3.12 L (4.30-5.90) m/uL Hgb 9.5 L D (13.0-17.5) gm/dL Hct 28.6 L (39.0-53.0) % RDW 17.8 H (11.5-15.5) % Neutrophils # (1.3-7.7) k/uL Lymphocytes # (1.0-4.8) k/uL ABG pH (7.35-7.45) ABG HCO3 (21-25) mmol/L Chloride 117 H (98-107) mmol/L Carbon Dioxide 19 L (22-30) mmol/L BUN 38 H (9-20) mg/dL Calcium 7.8 L (8.4-10.2) mg/dL Magnesium 2.6 H (1.6-2.3) mg/dL Crossmatch See Detail 10/06/20 10/06/20 Range/Units 08:06 09:47 WBC 12.0 H (3.8-10.6) k/uL RBC 3.23 L (4.30-5.90) m/uL Hgb 9.9 L (13.0-17.5) gm/dL Hct 30.3 L (39.0-53.0) % RDW 17.9 H (11.5-15.5) % Neutrophils # 11.2 H (1.3-7.7) k/uL Lymphocytes # 0.4 L (1.0-4.8) k/uL ABG pH 7.33 L (7.35-7.45) ABG HCO3 18 L (21-25) mmol/L Chloride (98-107) mmol/L Carbon Dioxide (22-30) mmol/L BUN (9-20) mg/dL Calcium (8.4-10.2) mg/dL Magnesium (1.6-2.3) mg/dL Crossmatch
[2020-10-06] MEDS ORDERED: [UNRECOGNIZED DRUG - REMARK] IV SCH ×6 (13:00)
[2020-10-06] MEDS ORDERED: FAT EMULSION 20% 250 ML IV SCH (13:00)
--- NOTE | 2020-10-06 14:32 | IR ---
PICC LINE PLACEMENT: HISTORY: TPN PROCEDURE: Ultrasound guidance of PICC line placement. SHRIMP PACKER: Dr. Rene. COMPLICATIONS: None ANESTHESIA: 1. 1% Lidocaine locally. FINDINGS/TECHNIQUE: The procedure was explained to the patient. The risks, complications, benefits and alternatives were discussed and any questions were answered. Informed consent was obtained. The patient was placed supine on the fluoroscopic table and prepped and draped in the usual sterile fash ion. Utilizing a 21 gauge needle and sonographic guidance, access in the left basilic vein was achi eved and there is placement of a 0.018 guidewire. The vein is patent. A 5-F. sheath was placed over the guidewire. The guidewire and dilator were removed and a 5-F. Double lumen PICC line was placed through the sheath with the chest x-ray confirming the tip at the level of the SVC. The sheath was r emoved, the catheter was flushed and sutured into position. The patient was stable throughout the pr ocedure and remained stable upon discharge from the Department of Radiology. The vein puncture was patent under ultrasound. A lopez scale image was obtained to document patency of the vein punctured. All elements of the maximal barrier technique were utilized. IMPRESSION: 1. Successful PICC line placement under ultrasound performed bedside within the ICU.
--- NOTE | 2020-10-06 14:47 | P.PN ---
Subjective Progress Note Date: 10/06/20 Patient was seen for a follow-up. Patient was initially seen by Dr. Satya Garcia. Please refer to his note for details. This is an 85-year-old gentleman with medical history of hypertension, hyperlipidemia who presented emergency department on 09/24/2020 for abdominal pain, nausea and vomiting. Neurology was consulted because of the possible seizure and altered mental status. History is obtained from medical record. During the hospital stay, patient underwent ERCP for gallstone but was unsuccessful and therefore developed splenic rupture. The patient the was diagnosed of having choledocholithiasis and ascending cholangitis. CT of the abdomen and pelvis showed splenic fracture. On September 27 patient underwent exploratory laparotomy, lysis of adhesion and splenectomy. The gallbladder was not removed. During the hospital stay the patient was transfused 3 units of red blood cell since his admission and 1 unit of platelet. Postsurgically the patient was intubated on mechanical ventilation. The patient was extubated on September 29. Then per medical records, on 10/01/2020 patient started becoming unresponsive and having shaken mild clonus-type the jerking movement of bilateral lower extr emity and increased muscle tone of bilateral upper extremity. During these episodes it is reported the blood pressure is 170 sytolic. During these episodes the patient will mumbling words and was incomprehensive. Patient was given 1 mg Ativan. Per the ICU nurse what transpired on the 10/01/2020 the patient was going from ICU to the floors and wall he was being transferred the and being placed on a floor bed and he had this episode that. Per the patient's ICU nurse, she stated that the patient is appropriate but is somewhat confused during the hospital hospital stay. The ICU nurse stated that she had this patient not only today but she had a prior and that she said that for the last 3 days in the ICU unit had the intermittent jerking of the left lower extremity lasting for seconds to about a minute but during these episodes he is responsive.. She has not noticed any foaming around the mouth, she denies any gaze deviation that she appreciated during these episodes. Patient had a seizure type episode on 10/01/2020. He was placed on Keppra 500 mg twice a day. WORK-UP: CT of the head on 10/01/2020 is reported as cerebral atrophy. No acute intracranial abnormality. Routine EEG on 10/02/20: Is an abnormal routine EEG. The background slowing is suggestive of mild encephalopathy. There are no focal slowing, epileptiform discharges or seizure on the EEG. TSH: 2.79 (normal). Ionized calcium 4.9 (normal). AST of 30 and ALT of 26. Ammonia level on 10/01/2020 is less than 9. Objective - Vital Signs Vital signs: Vital Signs Temp 97.4 F L 10/06/20 08:00 Pulse 92 10/06/20 11:41 Resp 33 H 10/06/20 11:30 BP 127/80 10/06/20 11:30 Pulse Ox 96 10/06/20 11:00 Intake & Output 10/05/20 10/06/20 10/06/20 18:59 06:59 18:59 Intake Total 0367 386 3252 Output Total 430 330 222 Balance 300 655 8179 Weight 54.2 kg Intake: IV 671 374 1448 Dextrose 5% in Water 1, 600 600 200 000 ml @ 50 mls/hr IV . Q20H [facility] Rx#:[id number] Dextrose 5%-0.9% NaCl 1, 75 000 ml @ 75 mls/hr IV . [id number] [facility] Rx#:[id number] Sodium Chloride 0.9% 1, 1000 000 ml @ 999 mls/hr IV . Q1H1M [facility] Rx#:[id number] levETIRAcetam IV 500 mg 100 In Sodium Chloride 0.9% 100 ml @ 400 mls/hr IVPB Q12H [facility] Rx#:[id number] Intake, IV Titration 300 Amount Piperacillin-Tazobactam 3 200 .375 gm In Sodium Chloride 0.9% 100 ml @ 25 mls/hr IVPB Q8HR [facility] Rx# :[id number] levETIRAcetam IV 500 mg 100 In Sodium Chloride 0.9% 100 ml @ 400 mls/hr IVPB Q12H [facility] Rx#:[id number] Blood Product 310 Rc As-1 Unit 310 [id number] Output: Drainage 50 60 Left Abdomen 40 Right Abdomen 10 60 Urine 380 270 222 Other: Voiding Method Indwelling Catheter Indwelling Catheter Indwelling Catheter ABP, PAP, CO, CI - Last Documented Arterial Blood Pressure 126/118 - Exam On examination patient is an elderly male, who is not on any sedation. The last time he received Ativan was 0.5 mg at 6:30 AM. Patient has BiPAP on. Patient is moaning. Could not check for speech or language function because of BiPAP. Pupils are round and reacting. Corneals are present. Oculocephalics present. Face could not be checked. Tongue and palate could not be checked. Tone is equal. Reflexes are 2+ to 3 in the upper limbs, 3 at the knees to ankle s and plantars are possible withdrawal versus upgoing. Patient has possible nonsustained clonus bilaterally. Tone is equal. Bulk of muscles decreased. - Labs CBC & Chem 7: 10/06/20 08:06 10/06/20 03:33 Labs: Abnormal Lab Results - Last 24 Hours (Table) 10/05/20 10/05/20 10/06/20 Range/Units 06:48 16:10 03:33 WBC 17.2 H (3.8-10.6) k/uL RBC 3.12 L (4.30-5.90) m/uL Hgb 9.5 L D (13.0-17.5) gm/dL Hct 28.6 L (39.0-53.0) % RDW 17.8 H (11.5-15.5) % Neutrophils # (1.3-7.7) k/uL Lymphocytes # (1.0-4.8) k/uL ABG pH (7.35-7.45) ABG HCO3 (21-25) mmol/L Chloride 117 H (98-107) mmol/L Carbon Dioxide 19 L (22-30) mmol/L BUN 38 H (9-20) mg/dL Calcium 7.8 L (8.4-10.2) mg/dL Magnesium 2.6 H (1.6-2.3) mg/dL Crossmatch See Detail 10/06/20 10/06/20 Range/Units 08:06 09:47 WBC 12.0 H (3.8-10.6) k/uL RBC 3.23 L (4.30-5.90) m/uL Hgb 9.9 L (13.0-17.5) gm/dL Hct 30.3 L (39.0-53.0) % RDW 17.9 H (11.5-15.5) % Neutrophils # 11.2 H (1.3-7.7) k/uL Lymphocytes # 0.4 L (1.0-4.8) k/uL ABG pH 7.33 L (7.35-7.45) ABG HCO3 18 L (21-25) mmol/L Chloride (98-107) mmol/L Carbon Dioxide (22-30) mmol/L BUN (9-20) mg/dL Calcium (8.4-10.2) mg/dL Magnesium (1.6-2.3) mg/dL Crossmatch Assessment and Plan Assessment: * One reported myoclonic seizure-like activity on 10/01/2020 and episodes of int ermittent focal motor jerking of the left lower extremity (but responsive for jerking of leg). Possibly could be more metabolicmyoclonic tremors, seizures much less likely. Possibly provoked from underlying sepsis/metabolic. No documented history of seizure---no further episodes * Altered mental status due to septic encephalopathy--mentation improving * E. 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 Once mentation has improved, would consider tapering off Keppra. * Recommend prolonged EEG as outpatient (if jerking of legs are captured and no epileptiform or seizure on the EEG then recommend discontinuing seizure medication). * Will get repeat CT head since he continues to be altered and is dysarthria to see if any changes compared to prior study. Possibly consider MRI Brain once patient is stable (can be done as outpatient. He does not seem he will lie still as inpatient currently). * Infection disease team is on board. * We'll defer the rest of the medical management to the primary team and ICU team. * Will follow-up with the patient sporadically.
--- NOTE | 2020-10-06 18:46 | PN ---
PROGRESS NOTE DATE OF SERVICE: 10/02/2020 REASON FOR FOLLOWUP: Aspiration pneumonia and E coli bacteremia. INTERVAL HISTORY: The patient is afebrile. The patient's mentation remains to be an issue. The patient is currently on a BiPAP. The patient is hemodynamically stable, not on pressor support. No vomiting, diarrhea or other changes reported by nursing staff. PHYSICAL EXAMINATION: Blood pressure 126/99 with pulse of 92, temperature is 97.8. He is 98% on 40% FiO2. GENERAL DESCRIPTION: Is an elderly male lying in bed in no distress. RESPIRATORY SYSTEM: Coarse breath sounds. No wheeze. HEART: S1, S2. Regular rate and rhythm. LABS: Hemoglobin 9.8, white count 12,000, BUN of 13 and creatinine of 1.13. DIAGNOSTIC IMPRESSION AND PLAN: Patient with E coli bacteremia, concern for possible cholangitis in this patient who did have a ( ), possible concern for aspiration pneumonia. Patient is covered with Zosyn, to continue. White count is trending down and monitor clinical course closely. MMODL / IJN: [id number] /
[2020-10-07] MEDS: levETIRAcetam IV 500 MG in SODIUM CHLORIDE 0.9% 100 ML IVPB SCH ×2 (03:44→16:20)
[2020-10-07 04:10] LABS: Anisocytosis Slight; Basophils % (A) 0 %; Eosinophils % (A) 0 %; HCT 26.9 % (39.0-53.0); HGB 8.6 gm/dL (13.0-17.5); Hypochromasia Slight; Lymphocytes # (A) 0.3 k/uL (1.0-4.8); Lymphocytes % (A) 3 %; MCH 29.9 pg (25.0-35.0); MCHC 31.8 g/dL (31.0-37.0); MCV 94.2 fL (80.0-100.0); Mean Platelet Volume 9.6; Monocytes # (A) 0.5 k/uL (0-1.0); Monocytes % (A) 5 %; Neutrophils # (A) 9.6 k/uL (1.3-7.7); Neutrophils % (A) 92 %; Platelet Count 290 k/uL (150-450); Poikilocytosis Slight; RBC 2.86 m/uL (4.30-5.90); RDW 17.9 % (11.5-15.5); WBC 10.4 k/uL (3.8-10.6)
[2020-10-07 04:17] LABS: Calcium 7.4 mg/dL (8.4-10.2); Magnesium 2.4 mg/dL (1.6-2.3); Phosphorus 2.9 mg/dL (2.5-4.5); Potassium 3.7 mmol/L (3.5-5.1)
[2020-10-07] MEDS: METOPROLOL TARTRATE 5 MG/5 ML VIAL IVP SCH ×4 (05:33→22:52)
[2020-10-07] MEDS: POTASSIUM CHLORIDE 10 MEQ in WATER FOR INJECTION 1 100ML.BAG IVPB SCH ×2 (05:33→06:58)
[2020-10-07] MEDS ORDERED: DEXTROSE 5% IN WATER 1,000 ML IV SCH (07:45)
[2020-10-07] MEDS: IPRATROPIUM-ALBUTEROL 3 ML NEB INHALATION SCH ×4 (07:59→19:01)
[2020-10-07] MEDS: BUDESONIDE 1 MG/2 ML NEBU INHALATION SCH ×2 (07:59→19:01)
[2020-10-07] MEDS: FORMOTEROL FUMARATE 20 MCG/2 ML NEBU INHALATION SCH ×2 (07:59→19:01)
--- NOTE | 2020-10-07 08:05 | XR ---
EXAMINATION TYPE: XR chest 1V portable DATE OF EXAM: 10/07/2020 COMPARISON: 10/06/2020 INDICATION: Shortness of breath TECHNIQUE: Single frontal view of the chest is obtained. FINDINGS: The heart size is normal. The pulmonary vasculature is normal. Right upper lobe consolidation has improved. Some mild right lower lobe infiltrate is increasing. Mil d left lower lobe infiltrate remains present. A small left pleural effusion is not excluded IMPRESSION: 1. Improving right upper lobe pneumonia. 2. Developing bibasilar infiltrates. Pneumonia and atelectasis could be considered. 3. Stable small left pleural effusion.
--- NOTE | 2020-10-07 08:29 | P.PN ---
Subjective Progress Note Date: 10/07/20 This is an 85-year-old white male with 1 day history of right upper quadrant pain, presented initially to the hospital on 09/24/2020, patient was diagnosed as having choledocholithiasis and ascending cholangitis. Patient was seen by gastroenterology on consultation, and he underwent attempted ERCP, however the ERCP was difficult, and could not be diagnostic or therapeutic. This was done on 09/25, and according to the note by the athletic team physician multiple attempts were made to advance the scope into the duodenum and visualizing the ampullary orifice was not successful. Hence ERCP was not performed. The athletic team physician recommended referral to [facility] for ERCP. Surgery was consulted on the patient on 09/25/2020, and the patient was seen by Dr. Fried. He recommended laparoscopic cholecystectomy and this was supposed to be scheduled on 09/29/2020. In the meantime the patient was found to have E. coli bacteremia and he was on antibiotics all along. On 09/27/2020, patient was noted to have significant blood loss anemia, CT of the abdomen and pelvis showed splenic fracture. Hence Dr. Turcios saw the patient on consultation, and the patient underwent emergency exploratory laparotomy, extensive lysis of adhesions, open splenectomy with control of bleeding, evacuation of hemoperitoneum, application of a wound VAC system, placement of a ANDREA drain in the left splenic fossa and right at pelvis. Due to the emergency situation, open cholecystectomy was not performed, patient was transfused, required a total of 3 units of packed RBCs The patient is postop day #8. The patient was extubated off the mechanical ventilator on 09/29/2020 and the patient has required BiPAP postextubation currently the patient is on high flow oxygen 10 L per minute nasal cannula. There is a concern for an an aspiration of the right upper lobe. Noted the patient was requiring also BiPAP for respiratory support in the BiPAP was utilized pressure of 12/5 cm of water and FiO2 of 50% alternating with high flow oxygen. The patient is currently bacteremic secondary to a component of as cending cholangitis and the patient is currently on IV Zosyn. The patient also developed an acute kidney injury secondary to ATN. On yesterday's evaluation hemoglobin was at 6.8 and the patient received a unit of packed RBC. The CAT scan of the abdomen was also done showing postsplenectomy changes, moderate bilateral pleural effusion increased in size, round vasopressin the lungs could be related to interstitial edema, moderate appearance of the liver, cholelithiasis, colonic diverticulosis, perinephric stranding. The patient has not passed any bowel movements. No abdominal pain. The patient remains nothing by mouth. She hasn't been able to perform a modified barium swallow as the pat ient was quite BiPAP dependent earlier last week. Her white cell count was improving. A from today still showing upper lobe bilateral pulmonary infiltrates right more than left. Lower lungs are essentially more preserved. The patient is currently on oxygen at 8 L per minute nasal cannula. Blood work from today shows a white cell count of 12 with a hemoglobin of 9.9 which is stable compared to yesterday. The serum bicarb is at 19 with a mean of 38 and a creatinine of 1.1. No signs of any GI bleed. The patient remains nothing by mouth. The patient remains quite lethargic and somnolent, responsive to pain only, not to verbal and not following any commands. His breathing is more labored on today's evaluation and he has a deep congested cough, unable to bring up much sputum. His aspiration is in the mid 30s. Abdominal wound is dry clean and intact. ANDREA drains are in place. Output at 20-40cc/hr 10/07/2020, I see the patient is awake and alert and much more interactive compared to yesterday. We took him off Ativan yesterday and the patient's mental status gradually improved during the day and overnight he was on a BiPAP and this morning he was taken off the BiPAP and is fully interactive and communicating and moving all 4 extremities without any limitation. He is answer ing all questions. He remains slightly lethargic and slightly tachypneic. He was taken off the BiPAP and he was placed on 4 L of oxygen by nasal cannula and the patient's chest x-ray still showing diffuse bilaterally pulmonary infiltrates with upper lobe predominance consider aspiration pneumonia and he remains on IV Zosyn. The PICC line was pulled out accidentally by the patient and is currently off TPN. A swallow evaluation is to follow today. He did have a bowel movement. Surgical site over the abdomen is dry clean and intact. No abdominal distention. ANDREA drain is in place and output is 20cc/hr total amount of output from the NADREA has been 1 95 mL from the one on the right and 20 mL from the 1 on the left ovary 12-hour period. The patient continues to have a component of non-anion gap metabolic acidosis. He'll be started on bicarb infusion to replace the bicarb deficits. The white cell count is at 10.4 with a hemoglobin of 8.6. No evidence of any GI bleed. No evidence of any blood loss intra-abdominal he. No abdominal distention. No other significant events overnight. Quite impressed by the mental status improvement since yesterday. Objective - Vital Signs Vital signs: Vital Signs Temp 98.1 F 10/07/20 04:00 Pulse 90 10/07/20 08:20 Resp 29 H 10/07/20 07:00 BP 140/107 10/07/20 07:00 Pulse Ox 96 10/07/20 08:00 Intake & Output 10/06/20 10/07/20 10/07/20 18:59 06:59 18:59 Intake Total 1969 1310 Output Total 602 675 Balance 1367 635 Weight 54.2 kg 61 kg Intake: IV 1968 1110 Dextrose 5% in Water 1, 200 000 ml @ 50 mls/hr IV . Q20H [facility] Rx#:[id number] Dextrose 5%-0.9% NaCl 1, 465 600 000 ml @ 75 mls/hr IV . [id number] [facility] Rx#:[id number] Fat Emulsion 20% 250 ml @ 84 210 20.833 mls/hr IV MoWeFr [facility] Rx#:[id number] Sodium Acetate 30 meq 120 300 Potassium Acetate 20 meq Calcium Gluconate 1 gm Mvi, Adult No.4 with Vit K 10 ml Trace (Conc-1Ml/ Dose) 1 ml In Amino Acids 5 %/Dextrose 20 % 1,000 ml @ 30 mls/hr IV .Q24H [facility] Rx#:[id number] Sodium Chloride 0.9% 1, 1000 000 ml @ 999 mls/hr IV . Q1H1M [facility] Rx#:[id number] levETIRAcetam IV 500 mg 100 In Sodium Chloride 0.9% 100 ml @ 400 mls/hr IVPB Q12H [facility] Rx#:[id number] Intake, IV Titration 200 Amount Piperacillin-Tazobactam 3 100 .375 gm In Sodium Chloride 0.9% 100 ml @ 25 mls/hr IVPB Q8HR [facility] Rx# :[id number] Potassium Chloride 10 meq 100 In Water For Injection 1 100ml.bag @ 100 mls/hr IVPB Q1H [facility] Rx#: [id number] Output: Drainage 200 195 Left Abdomen 60 Right Abdomen 140 195 Urine 402 480 Other: Voiding Method Indwelling Catheter Indwelling Catheter ABP, PAP, CO, CI - Last Documented Arterial Blood Pressure 126/118 - Exam GENERAL EXAM: 85-year-old white male , lethargic, obtunded, not following any commands, breathing seems to be labored as the patient is using his chest and abdominal muscles of breathing. Is currently on oxygen at 4 L HEAD: Normocephalic/atraumatic. EYES: Normal reaction of pupils, equal size. Conjunctiva pink, sclera white. NOSE: Clear with pink turbinates. THROAT: No erythema or exudates. NECK: No masses, no JVD, no thyroid enlargement, no adenopathy. CHEST: No chest wall deformity. Symmetrical expansion. LUNGS: Equal air entry with no crackles, wheeze, rhonchi or dullness. On examination, he is also showing some signs of bronchospasm and wheezing. CVS: Regular rate and rhythm, normal S1 and S2, no gallops, no murmurs, no rubs ABDOMEN: Soft, mildly tender post surgery. No hepatosplenomegaly, normal bowel sounds, no guarding or rigidity. Midabdominal incision is clean dry and intact ANDREA drain output is serosanguineous, 190 mL from the left and 20 from right EXTREMITIES: No clubbing, no edema, no cyanosis, 2+ pulses and upper and lower extremities. MUSCULOSKELETAL: Muscle strength and tone normal. SPINE: No scoliosis or deformity SKIN: No rashes CENTRAL NERVOUS SYSTEM: Somnolent yet arousable and awake upon stimulation. Moving all extremities. Following commands appropriately. No focal neurological deficits. - Labs CBC & Chem 7: 10/07/20 03:35 10/07/20 03:32 Labs: Abnormal Lab Results - Last 24 Hours (Table) 10/06/20 10/06/20 10/07/20 Range/Units 08:06 09:47 03:32 WBC 12.0 H (3.8-10.6) k/uL RBC 3.23 L (4.30-5.90) m/uL Hgb 9.9 L (13.0-17.5) gm/dL Hct 30.3 L (39.0-53.0) % RDW 17.9 H (11.5-15.5) % Neutrophils # 11.2 H (1.3-7.7) k/uL Lymphocytes # 0.4 L (1.0-4.8) k/uL ABG pH 7.33 L (7.35-7.45) ABG HCO3 18 L (21-25) mmol/L Chloride 121 H (98-107) mmol/L Carbon Dioxide 16 L (22-30) mmol/L BUN 36 H (9-20) mg/dL Glucose 141 H (74-99) mg/dL Calcium 7.4 L (8.4-10.2) mg/dL Magnesium 2.4 H (1.6-2.3) mg/dL 10/07/20 Range/Units 03:35 WBC (3.8-10.6) k/uL RBC 2.86 L (4.30-5.90) m/uL Hgb 8.6 L (13.0-17.5) gm/dL Hct 26.9 L (39.0-53.0) % RDW 17.9 H (11.5-15.5) % Neutrophils # 9.6 H (1.3-7.7) k/uL Lymphocytes # 0.3 L (1.0-4.8) k/uL ABG pH (7.35-7.45) ABG HCO3 (21-25) mmol/L Chloride (98-107) mmol/L Carbon Dioxide (22-30) mmol/L BUN (9-20) mg/dL Glucose (74-99) mg/dL Calcium (8.4-10.2) mg/dL Magnesium (1.6-2.3) mg/dL Assessment and Plan Plan: #1. Acute splenic rupture following ERCP, status post exploratory laparotomy, splenectomy and lysis of adhesions on 09/27/2020, postoperative day #9 #2. Postoperative routine mechanical ventilator management, with successful extubation on September 29, requiring BiPAP support after extubation, currently on high flow nasal cannula at 8 L alternating with Bipap this morning, the patient is off the BiPAP and intoxication is also improved and he was weaned down to 4 L of oxygen by nasal cannula. Chest x-ray still showing diffuse upper lobe pulmonary infiltrates more so on the right. This is likely an aspiration pneumonia. He remains on IV Zosyn. #3. Aspiration pneumonia involving the right upper lobe in the left upper lobe #4. Questionable syncope/seizure #5. E. coli bacteremia secondary to acute ascending cholangitis currently on Zosyn #6. Acute blood loss anemia secondary to splenic rupture requiring 3 units of packed red blood cells, and 1 unit of platelets post op. Note that there was further drop in hemoglobin yesterday and the patient received a unit of packed RBC and hemoglobin is stable for now. #7. Acute kidney injury secondary to ATN, improved and the creatinine is down to 1.1 #8. Postoperative bilateral pleural effusions secondary to aggressive fluid resuscitation and transfusion of blood products #9. History of hyperlipidemia #10. History of gout #11. History of hypertension #12 chronic diverticulosis 13 altered mentation, CAT scan of the brain is negative. The patient may have a component of metabolic encephalopathy secondary to above. He was also being given Ativan 0.5 mg every 6 hours for agitation graft on today's evaluation, the patient's mental status improved and is much more interactive and communicating. plan The remainder FiO2 down to 4 L Discontinue Ativan Replace the bicarb deficit by D5 bicarb infusion at the rate of 100 mL an hour Continue IV Zosyn Aspiration precautions and proceed with a swallow evaluation Continue bronchodilators Continue steroids as the patient continues to bronchus spastic and wheezy Moderate output from the ANDREA drain Continue Keppra for any potential seizure activity Wound is dry clean and intact Restart the patient on Lovenox 30 mg subcu for DVT prophylaxis We'll continue to follow. Condition is still critical. However, there has been some interval improvement.
[2020-10-07] MEDS: DEXTROSE 5% IN WATER 1,000 ML with SODIUM BICARB (1 MEQ/ML) 150 ML IV SCH ×2 (09:00→20:21)
[2020-10-07] MEDS: PIPERACILLIN TAZOBACTAM IVPB SCH ×6 (09:27→22:52)
[2020-10-07] MEDS: DEXTROSE 5% IVPB SCH ×6 (09:27→22:52)
[2020-10-07] MEDS: WATER IVPB SCH ×6 (09:27→22:52)
[2020-10-07] MEDS: FAMOTIDINE 20 MG/2 ML VIAL IV SCH (09:31)
[2020-10-07] MEDS: ENOXAPARIN 30 MG/0.3 ML SYRINGE SQ SCH (09:31)
[2020-10-07] MEDS: methylPREDNISolone SOD SUCCI 40 MG/ML 1 ML VIAL IV SCH ×3 (09:31→22:52)
--- NOTE | 2020-10-07 11:20 | P.PN ---
Subjective Progress Note Date: 10/07/20 Principal diagnosis: abdominal pain Patient is an 85-year-old male with a past medical history of hypertension and peripheral arterial disease. He had been found to have elevated liver enzymes and has been being worked up as an outpatient basis. Patient had a liver ul trasound and MRCP which suggested cholestasis with multiple gallstones. Patient presented to the emergency department on 09/24/20 with a chief complaint of right upper quadrant abdominal pain 1 day associated with nausea, vomiting, and diarrhea. Patient admitted under our services for acute ascending cholangitis with transaminitis and HERMELINDO. Abdominal ultrasound completed revealing numerous gallstones. Patient was under leukocytosis with a WBC count of 17.1, anemia with hemoglobin of 10.8, and thrombocytopenia with platelet count of 104,000. Acute kidney injury with BUN of 38, creatinine 1.63, and GFR of 38 with baseline hemoglobin of 1.2. Patient was taken for ERCP on 09/[address] 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 Call was made to transfer center and patient was accepted for transfer at [facility] by Dr. Wolfe. Patient was awaiting a bed assignment for transfer to be completed. Blood cultures positive for E. coli, patient provided coverage with continued use of IV antibiotics: Zosyn. His hemoglobin acutely dropped on the morning of 09/27 from 9.5-6.7. This was confirmed on repeat blood draw. He was taken down for emergent CT abdomen and pelvis which showed splenic rupture with possible hemorrhage into the pelvis. Surgery was contacted and the patient emergently went to the OR. 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 2 ANDREA drains were placed. Patient return to the ICU intubated and was successfully extubated on 09/29 and did have some confusion. This continued to worsen. He did not passes swallow evaluation initially. He then had some w orsening of his respiratory status requiring BiPAP therapy. He had possible seizure activity noted, neuro consulted and EEG noted swelling but no epileptiform activity. Neurology has recommended continued Keppra and outpatient prolonged EEG, unable to obtain MRI secondary to restlessness. Repeat head CT with no acute process. He underwent a CT abdomen and pelvis on 10/05 due to low HgB that showed moderate bilateral pleural effusions and groundglass opacities in the lungs, surgical drainage tubes, and a small amount of peritoneal fluid. Again he demonstrated cholelithiasis and a nodular ap pearance to the liver. He continued to struggle with confusion. Patient seen and examined at bedside. Eyes are more open today and he is interacting more, still significantly confused, does report belly pain, discussed with nursing patient will have modified barium swallow study in a.m. General: Ill appearing no distress, appears younger than stated age Derm: warm, dry Head: atraumatic, normocephalic, symmetric Eyes: Pupils equal round reactive to light, no lid lag, anicteric sclera Mouth: no lip lesion, mucus membranes moist Cardiovascular: S1S2 reg with grade 2 systolic ejection murmur, positive posterior tibial pulse bilateral, Lungs: Decreasing bilateral, no rhonchi, no rales , no accessory muscle use, on vent Abdominal: soft, nondistended, +TTP diffusely, no appreciable organomegaly, dressing over midline incision, Ext: no gross muscle atrophy, no edema, no contractures Neuro: Moving all 4 extremities independently, no focal neuro deficits noted. Psych: Lethargic, awakes to touch Acute ascending cholangitis with E. coli bacteremia acute respiratory failure secondary to aspiration pneumonia, probable gram- negative Toxic metabolic encephalopathy -Outpatient MRCP revealed choledocholithiasis with possible obstructive jaundice pattern. -Patient was taken for ERCP on 09/25/[address] Huang, however it was reported that scope could not be advanced. D/W Dr. Yuen and will manage gallbladder as an outpatient at this time, no need for transfer. -Plans will be for outpatient laparoscopic cholecystectomy once acute illness improved. -Repeat blood cultures are negative to date -Zosyn, ID recs -Wean O2 as able -Pulmonary recommendations -Pulmonary hygiene, bronchodilators Splenic rupture with acute blood loss anemia, thrombocytopenia, hypovolemic shock, resolved - s/p 3 units of pRBC and 1 unit of plt - surgery recs -Plan will be for immunization prior to discharge from hospital for day 14 (10/12/20) whichever comes first. Patient will need strep pneumonia vaccine, meningitis, and Haemophilus influenza B prior to discharge. Hyperchloremic metabolic acidosis -Secondary to decreased free water intake and fluids with chloride amount -DC normal saline -Discussed with pharmacy and will remove chloride from Zosyn -Start D5W with 3 A bicarb -Repeat labs in a.m. Possible seizure versus myoclonic jerking -Neurology recommendations appreciated -Continue with Keppra -Outpatient prolonged EEG to determine if antiepileptic medication will continue to be needed Acute kidney injury, resolved - baseline creatinine of 1.2. -Hold nephrotoxic medications -Continue to hold lisinopril secondary to recent hypotension requiring norepinephrine. Hypertension -With recent hypotension -atenolol -hold lisinopril -Follow blood pressures Dysphagia - failed swallow study. speech evaluation and MBS on 10/08 Hypernatremia, resolved DVT prophylaxis: SCDs Discussed with: nursing Anticipated discharge: undetermined Anticipated discharge place: undetermined A total of 34 minutes was spent on the care of this complex patient more than 50% of the time was spent in counseling and care coordination. Objective - Vital Signs Vital signs: Vital Signs Temp 97.7 F 10/07/20 08:00 Pulse 89 10/07/20 10:00 Resp 26 H 10/07/20 10:00 BP 135/56 10/07/20 10:00 Pulse Ox 95 10/07/20 10:00 Intake & Output 10/06/20 10/07/20 10/07/20 18:59 06:59 18:59 Intake Total 1968 1310 225 Output Total 602 675 210 Balance 1367 635 15 Weight 54.2 kg 61 kg Intake: IV 1968 1110 225 Dextrose 5% in Water 1, 75 000 ml @ 100 mls/hr IV . [id number] [facility] with Sodium Bicarb (1 Meq/ml) 150 ml Rx#:[id number] Dextrose 5% in Water 1, 200 000 ml @ 50 mls/hr IV . Q20H [facility] Rx#:[id number] Dextrose 5%-0.9% NaCl 1, 465 600 150 000 ml @ 75 mls/hr IV . [id number] [facility] Rx#:[id number] Fat Emulsion 20% 250 ml @ 84 210 20.833 mls/hr IV MoWeFr [facility] Rx#:[id number] Sodium Acetate 30 meq 120 300 Potassium Acetate 20 meq Calcium Gluconate 1 gm Mvi, Adult No.4 with Vit K 10 ml Trace (Conc-1Ml/ Dose) 1 ml In Amino Acids 5 %/Dextrose 20 % 1,000 ml @ 30 mls/hr IV .Q24H [facility] Rx#:[id number] Sodium Chloride 0.9% 1, 1000 000 ml @ 999 mls/hr IV . Q1H1M [facility] Rx#:[id number] levETIRAcetam IV 500 mg 100 In Sodium Chloride 0.9% 100 ml @ 400 mls/hr IVPB Q12H [facility] Rx#:[id number] Intake, IV Titration 200 Amount Piperacillin-Tazobactam 3 100 .375 gm In Sodium Chloride 0.9% 100 ml @ 25 mls/hr IVPB Q8HR [facility] Rx# :[id number] Potassium Chloride 10 meq 100 In Water For Injection 1 100ml.bag @ 100 mls/hr IVPB Q1H [facility] Rx#: [id number] Output: Drainage 200 195 70 Left Abdomen 60 10 Right Abdomen 140 195 60 Urine 402 480 140 Other: Voiding Method Indwelling Catheter Indwelling Catheter Indwelling Catheter ABP, PAP, CO, CI - Last Documented Arterial Blood Pressure 126/118 - Labs CBC & Chem 7: 10/07/20 03:35 10/07/20 03:32 Labs: Abnormal Lab Results - Last 24 Hours (Table) 10/07/20 10/07/20 Range/Units 03:32 03:35 RBC 2.86 L (4.30-5.90) m/uL Hgb 8.6 L (13.0-17.5) gm/dL Hct 26.9 L (39.0-53.0) % RDW 17.9 H (11.5-15.5) % Neutrophils # 9.6 H (1.3-7.7) k/uL Lymphocytes # 0.3 L (1.0-4.8) k/uL Chloride 121 H (98-107) mmol/L Carbon Dioxide 16 L (22-30) mmol/L BUN 36 H (9-20) mg/dL Glucose 141 H (74-99) mg/dL Calcium 7.4 L (8.4-10.2) mg/dL Magnesium 2.4 H (1.6-2.3) mg/dL
--- NOTE | 2020-10-07 11:56 | P.PN ---
Subjective Progress Note Date: 10/07/20 10/07/2020: Patient was seen for a follow-up. Patient not using any BiPAP, appears much more comfortable. He was very alert and awake. Watching TV. Does not cooperate with detailed examination. Offers no complaints. 10/06/2020: Patient was seen for a follow-up. Patient was initially seen by Dr. Satya Garcia. Please refer to his note for details. This is an 85-year-old gentleman with medical history of hypertension, hyperlipidemia who presented emergency department on 09/24/2020 for abdominal pain, nausea and vomiting. Neurology was consulted because of the possible s eizure and altered mental status. History is obtained from medical record. During the hospital stay, patient underwent ERCP for gallstone but was unsuccessful and therefore developed splenic rupture. The patient the was diagnosed of having choledocholithiasis and ascending cholangitis. CT of the abdomen and pelvis showed splenic fracture. On September 27 patient underwent exploratory laparotomy, lysis of adhesion and splenectomy. The gallbladder was not removed. During the hospital stay the patient was transfused 3 units of red blood cell since his admission and 1 unit of platelet. Postsurgically the patient was intubated on mechanical ventilation. The patient was extubated on September 29. Then per medical records, on 10/01/2020 patient started becoming unresponsive and having shaken mild clonus-type the jerking movement of bilateral lower extremity and increased muscle tone of bilateral upper extremity. During these episodes it is reported the blood pressure is 170 sytolic. During these episodes the patient will mumbling words and was incomprehensive. Patient was given 1 mg Ativan. Per the ICU nurse what transpired on the 10/01/2020 the patient was going from ICU to the floors and wall he was being transferred the and being placed on a floor bed and he had this episode that. Per the patient's ICU nurse, she stated that the patient is appropriate but is somewhat confused during the hospital hospital stay. The ICU nurse stated that she had this patient not only today but she had a prior and that she said that for the last 3 days in the ICU unit had the intermittent jerking of the left lower extremity lasting for seconds to about a minute but during these episodes he is responsive.. She has not noticed any foaming around the mouth, she denies any gaze deviation that she appreciated during these episodes. Patient had a seizure type episode on 10/01/2020. He was placed on Keppra 500 mg twice a day. WORK-UP: CT of the head on 10/01/2020 is reported as cerebral atrophy. No acute intracranial abnormality. Routine EEG on 10/02/20: Is an abnormal routine EEG. The background slowing is suggestive of mild encephalopathy. There are no focal slowing, epileptiform discharges or seizure on the EEG. TSH: 2.79 (normal). Ionized calcium 4.9 (normal). AST of 30 and ALT of 26. Ammonia level on 10/01/2020 is less than 9. Objective - Vital Signs Vital signs: Vital Signs Temp 97.7 F 10/07/20 08:00 Pulse 87 10/07/20 11:43 Resp 28 H 10/07/20 11:00 BP 121/73 10/07/20 11:00 Pulse Ox 96 10/07/20 11:00 Intake & Output 10/06/20 10/07/20 10/07/20 18:59 06:59 18:59 Intake Total 1968 1310 300 Output Total 602 675 210 Balance 1367 635 90 Weight 54.2 kg 61 kg Intake: IV 1968 1110 300 Dextrose 5% in Water 1, 150 000 ml @ 100 mls/hr IV . [id number] [facility] with Sodium Bicarb (1 Meq/ml) 150 ml Rx#:[id number] Dextrose 5% in Water 1, 200 000 ml @ 50 mls/hr IV . Q20H [facility] Rx#:[id number] Dextrose 5%-0.9% NaCl 1, 465 600 150 000 ml @ 75 mls/hr IV . [id number] [facility] Rx#:[id number] Fat Emulsion 20% 250 ml @ 84 210 20.833 mls/hr IV MoWeFr [facility] Rx#:[id number] Sodium Acetate 30 meq 120 300 Potassium Acetate 20 meq Calcium Gluconate 1 gm Mvi, Adult No.4 with Vit K 10 ml Trace (Conc-1Ml/ Dose) 1 ml In Amino Acids 5 %/Dextrose 20 % 1,000 ml @ 30 mls/hr IV .Q24H [facility] Rx#:[id number] Sodium Chloride 0.9% 1, 1000 000 ml @ 999 mls/hr IV . Q1H1M ONE Rx#:[id number] levETIRAcetam IV 500 mg 100 In Sodium Chloride 0.9% 100 ml @ 400 mls/hr IVPB Q12H [facility] Rx#:[id number] Intake, IV Titration 200 Amount Piperacillin-Tazobactam 3 100 .375 gm In Sodium Chloride 0.9% 100 ml @ 25 mls/hr IVPB Q8HR [facility] Rx# :[id number] Potassium Chloride 10 meq 100 In Water For Injection 1 100ml.bag @ 100 mls/hr IVPB Q1H [facility] Rx#: [id number] Output: Drainage 200 195 70 Left Abdomen 60 10 Right Abdomen 140 195 60 Urine 402 480 140 Other: Voiding Method Indwelling Catheter Indwelling Catheter Indwelling Catheter ABP, PAP, CO, CI - Last Documented Arterial Blood Pressure 126/118 - Exam On examination patient is an elderly male, who is not on any sedation. He is laying comfortably in the bed. Much more alert and awake. Patient makes eye contact. Pupils are round and reacting. Patient was able to name "glasses and pen". Would not answer to the questions asked for orientation. Pupils are round and reacting. Extraocular muscles are intact. Patient did not cooperate for visual field testing. Face is symmetric. Patient did not protrude his tongue. Hearing appears somewhat decreased. Tone is equal. Reflexes are 2+ to 3 in the upper limbs, 3 at the knees to ankles and plantars are possible withdrawal versus upgoing. Patient has possible nonsustained clonus bilaterally. Tone is equal. Bulk of muscles overall mildly decreased. - Labs CBC & Chem 7: 10/07/20 03:35 10/07/20 03:32 Labs: Abnormal Lab Results - Last 24 Hours (Table) 10/07/20 10/07/20 Range/Units 03:32 03:35 RBC 2.86 L (4.30-5.90) m/uL Hgb 8.6 L (13.0-17.5) gm/dL Hct 26.9 L (39.0-53.0) % RDW 17.9 H (11.5-15.5) % Neutrophils # 9.6 H (1.3-7.7) k/uL Lymphocytes # 0.3 L (1.0-4.8) k/uL Chloride 121 H (98-107) mmol/L Carbon Dioxide 16 L (22-30) mmol/L BUN 36 H (9-20) mg/dL Glucose 141 H (74-99) mg/dL Calcium 7.4 L (8.4-10.2) mg/dL Magnesium 2.4 H (1.6-2.3) mg/dL Assessment and Plan Assessment: * One reported myoclonic seizure-like activity on 10/01/2020 and episodes of intermittent focal motor jerking of the left lower extremity (but responsive for jerking of leg). Possibly could be more metabolicmyoclonic tremors, seizures much less likely. Possibly provoked from underlying sepsis/metabolic. No documented history of seizure---no further episodes * Altered mental status due to septic encephalopathy--mentation improving * E. 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 Once mentation has improved, would consider tapering off Keppra. * Recommend prolonged EEG as outpatient (if jerking of legs are captured and no epileptiform or seizure on the EEG then recommend discontinuing seizure medication). * Will get repeat CT head since he continues to be altered and is dysarthria to see if any changes compared to prior study. Possibly consider MRI Brain once patient is stable (can be done as outpatient. He does not seem he will lie still as inpatient currently). * Infection disease team is on board. * We'll defer the rest of the medical management to the primary team and ICU team. * Patient appears to have improved significantly as compared to yesterday. Neurology will continue to follow.
[2020-10-07] MEDS ORDERED: [UNRECOGNIZED DRUG - REMARK] IV SCH ×6 (13:00)
[2020-10-07] MEDS ORDERED: [UNRECOGNIZED DRUG - REMARK] IV SCH ×7 (13:00)
--- NOTE | 2020-10-07 13:04 | P.PN ---
Subjective Progress Note Date: 10/07/20 CHIEF COMPLAINT: Right upper quadrant abdominal pain HISTORY OF PRESENT ILLNESS: Patient admitted to the hospital for ascending cholangitis. He was in transition for transfer to [facility] for def initive ERCP for common bile duct obstruction when he developed acute blood loss anemia and CT findings of ruptured spleen. 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 Patient remains in the ICU. He is nothing by mouth. Patient was initially scheduled to have a swallow evaluation today by speech therapy. However, they wanted to have an MBS study completed but patient is not stable enough to leave ICU to have test completed. Patient had been started on TPN yesterday. But he did pull the PICC line out. Patient denies any abdominal pain. He is having bowel movements. Afebrile. He is down to 4 L satting at 96%. WBC has normalized at 10.4 hemoglobin has dropped from 9.9-8.6 platelets 290. Sodium 142 potassium 3.7 CO2 16 creatinine 1.17 PHYSICAL EXAM: VITAL SIGNS: Reviewed. GENERAL: Well-developed in no acute distress. HEENT: No sclera icterus. Extraocular movements grossly intact. Moist buccal mucosa. Head is atraumatic, normocephalic. ABDOMEN: Soft. Incision site clean dry and intact. 2 ANDREA drains with serous output NEUROLOGIC: Lethargic ASSESSMENT: 1. Acute splenic rupture of unclear etiology. Status post Exploratory laparotomy with extensive lysis of adhesions, open splenectomy and evacuation of hemoperitoneum 2. Acute blood loss anemia due to splenic rupture 3. Ascending cholangitis with bacteremia 4. Symptomatic gallstone 5. Thrombocytopenia 6. Possible seizure 7. Acute kidney injury 8. Dysphagia 9. Aspiration pneumonia 10. Bilateral pleural effusions 11. Hard of hearing PLAN: -Continue ICU management and supportive care -Will need immunizations for post-splenectomy management in 10 to 14 days, otherwise, 10/07/20 to 10/12/20. May also benefit from COVID vaccination. -Cholecystectomy deferred -Encourage incentive spirometry use -Continue antibiotics per ID -Check iron studies due to drop in hemoglobin Physician Pneumatic Drum Sander note has been reviewed by physician. Signing provider agrees with the documented findings, assessment, and plan of care. Objective - Vital Signs Vital signs: Vital Signs Temp 97.7 F 10/07/20 08:00 Pulse 90 07/27/21 12:00 Resp 18 10/07/20 12:00 BP 124/80 10/07/20 12:00 Pulse Ox 96 10/07/20 12:00 Intake & Output 10/06/20 10/07/20 10/07/20 18:59 06:59 18:59 Intake Total 1969 1310 400 Output Total 602 675 270 Balance 1367 635 130 Weight 54.2 kg 61 kg Intake: IV 1969 1110 400 Dextrose 5% in Water 1, 250 000 ml @ 100 mls/hr IV . [id number] [facility] with Sodium Bicarb (1 Meq/ml) 150 ml Rx#:[id number] Dextrose 5% in Water 1, 200 000 ml @ 50 mls/hr IV . Q20H [facility] Rx#:[id number] Dextrose 5%-0.9% NaCl 1, 465 600 150 000 ml @ 75 mls/hr IV . [id number] [facility] Rx#:[id number] Fat Emulsion 20% 250 ml @ 84 210 20.833 mls/hr IV MoWeFr [facility] Rx#:[id number] Sodium Acetate 30 meq 120 300 Potassium Acetate 20 meq Calcium Gluconate 1 gm Mvi, Adult No.4 with Vit K 10 ml Trace (Conc-1Ml/ Dose) 1 ml In Amino Acids 5 %/Dextrose 20 % 1,000 ml @ 30 mls/hr IV .Q24H [facility] Rx#:[id number] Sodium Chloride 0.9% 1, 1000 000 ml @ 999 mls/hr IV . Q1H1M [facility] Rx#:[id number] levETIRAcetam IV 500 mg 100 In Sodium Chloride 0.9% 100 ml @ 400 mls/hr IVPB Q12H [facility] Rx#:[id number] Intake, IV Titration 200 Amount Piperacillin-Tazobactam 3 100 .375 gm In Sodium Chloride 0.9% 100 ml @ 25 mls/hr IVPB Q8HR [facility] Rx# :[id number] Potassium Chloride 10 meq 100 In Water For Injection 1 100ml.bag @ 100 mls/hr IVPB Q1H [facility] Rx#: [id number] Output: Drainage 200 195 70 Left Abdomen 60 10 Right Abdomen 140 195 60 Urine 402 480 200 Other: Voiding Method Indwelling Catheter Indwelling Catheter Indwelling Catheter ABP, PAP, CO, CI - Last Documented Arterial Blood Pressure 126/118 - Labs CBC & Chem 7: 10/07/20 03:35 10/07/20 03:32 Labs: Abnormal Lab Results - Last 24 Hours (Table) 10/07/20 10/07/20 Range/Units 03:32 03:35 RBC 2.86 L (4.30-5.90) m/uL Hgb 8.6 L (13.0-17.5) gm/dL Hct 26.9 L (39.0-53.0) % RDW 17.9 H (11.5-15.5) % Neutrophils # 9.6 H (1.3-7.7) k/uL Lymphocytes # 0.3 L (1.0-4.8) k/uL Chloride 121 H (98-107) mmol/L Carbon Dioxide 16 L (22-30) mmol/L BUN 36 H (9-20) mg/dL Glucose 141 H (74-99) mg/dL Calcium 7.4 L (8.4-10.2) mg/dL Magnesium 2.4 H (1.6-2.3) mg/dL
[2020-10-07] MEDS ORDERED: levETIRAcetam IV 500 MG/5 ML VIAL IV SCH (16:00)
[2020-10-07] MEDS ORDERED: FUROSEMIDE 10 MG/ML 4 ML VIAL IV STA (16:13)
--- NOTE | 2020-10-07 16:46 | P.PN ---
Progress Note - Text Progress Note Date: 10/07/20 Advanced Care Planning: Diagnoses: Ascending cholangitis Ruptured spleen Discussion: Person(s) present and participating in discussion: significant other, daughter, sons Summary: Discussed with family prognosis, plans for increasing strength and endurance prior to cholecystectomy. He does not want to go to rehab. Family is prepared to be there / on discharge and would trade off times. They are aware that home care would only be out 3 times weekly. They are in agreement with that plan. Long has said that he does not want intubation. Family would like to discuss CPR in a few days they are aware that we would do CPR but no vent at this time. We discussed that if he does not pass his swallow study in the morning he will need an NGT. A total of 20 minutes of face to face time was spent discussing advanced care planning.
--- NOTE | 2020-10-07 22:23 | PN ---
PROGRESS NOTE DATE OF SERVICE: 10/07/2020 REASON FOR FOLLOWUP: Aspiration pneumonia and . INTERVAL HISTORY: Patient is afebrile. The patient is hemodynamically stable. Mentation has improved. Respiratory status has improved, not requiring BiPAP. No vomiting, diarrhea or other changes reported by nursing staff. PHYSICAL EXAMINATION: Blood pressure 145/55, pulse of 97, temperature 98.3. He is 94% on 6 L nasal cannula. General description is an elderly male lying in bed in no distress. Respiratory system: Unlabored breathing, decreased breath sounds at the base. No wheeze. Heart: S1, S2. Regular rate and rhythm. Abdomen: Soft. No tenderness. Extremities: No edema of the feet. LABS: Hemoglobin is 8.2, white count 8.4, BUN of 36, creatinine is 1.17. Sputum has been negative so far. DIAGNOSTIC IMPRESSION AND PLAN: Patient with acute respiratory failure, multifactorial in this patient with possible component of aspiration pneumonia who did have E. coli bacteremia possible cholangitis and is covered with Zosyn, overall improvement. White count normalized. Culture repeat has been negative so far. Continue supportive care. MMODL / IJN: [id number] /
[2020-10-08 05:26] LABS: Anisocytosis Slight; Basophils % (A) 0 %; Eosinophils % (A) 0 %; HCT 25.5 % (39.0-53.0); HGB 8.6 gm/dL (13.0-17.5); Hypochromasia Slight; Lymphocytes # (A) 0.4 k/uL (1.0-4.8); Lymphocytes % (A) 3 %; MCH 30.6 pg (25.0-35.0); MCHC 33.6 g/dL (31.0-37.0); MCV 91.1 fL (80.0-100.0); Mean Platelet Volume 9.8; Monocytes # (A) 0.3 k/uL (0-1.0); Monocytes % (A) 3 %; Neutrophils % (A) 93 %; Platelet Count 315 k/uL (150-450); Poikilocytosis Slight; RDW 17.9 % (11.5-15.5); WBC 10.7 k/uL (3.8-10.6)
[2020-10-08 05:27] LABS: Albumin 2.1 g/dL (3.5-5.0); Calcium 7.5 mg/dL (8.4-10.2); Magnesium 2.1 mg/dL (1.6-2.3); Phosphorus 3.3 mg/dL (2.5-4.5); Potassium 3.6 mmol/L (3.5-5.1); Total Bilirubin 0.5 mg/dL (0.2-1.3); Total Protein 4.1 g/dL (6.3-8.2)
[2020-10-08 05:58] LABS: Ferritin 391.1 ng/mL (22.0-322.0)
[2020-10-08 05:59] LABS: % Iron Saturation 16.75 (15.00-50.00)
[2020-10-08] MEDS: METOPROLOL TARTRATE 5 MG/5 ML VIAL IVP SCH ×4 (06:13→23:48)
[2020-10-08] MEDS: levETIRAcetam IV 500 MG in SODIUM CHLORIDE 0.9% 100 ML IVPB SCH ×2 (06:13→16:39)
[2020-10-08] MEDS: POTASSIUM CHLORIDE 10 MEQ in WATER FOR INJECTION 1 100ML.BAG IVPB SCH ×2 (06:34→08:22)
[2020-10-08] MEDS: hydrALAZINE HCL 20 MG/ML 1 ML VIAL IVP PRN (06:45)
[2020-10-08] MEDS: IPRATROPIUM-ALBUTEROL 3 ML NEB INHALATION SCH ×4 (07:49→19:07)
[2020-10-08] MEDS: FORMOTEROL FUMARATE 20 MCG/2 ML NEBU INHALATION SCH ×2 (07:49→19:07)
[2020-10-08] MEDS: BUDESONIDE 1 MG/2 ML NEBU INHALATION SCH ×2 (07:49→19:07)
[2020-10-08] MEDS: methylPREDNISolone SOD SUCCI 40 MG/ML 1 ML VIAL IV SCH ×3 (08:22→23:48)
--- NOTE | 2020-10-08 08:29 | XR ---
EXAMINATION TYPE: XR chest 1V portable DATE OF EXAM: 10/08/2020 HISTORY: Shortness of breath. COMPARISON: 10/07/2020 TECHNIQUE: Single view of the chest is submitted. FINDINGS: Demonstrated are scattered senescent parenchymal change. Stable upper lobe and lower lobe infiltrates persist. Improved aeration right lower lobe. Small effus ions. The heart is stable. Hilar and mediastinal structures are within normal limits. Degenerative changes are seen of the dorsal spine. IMPRESSION: 1. Stable upper lobe and lower lobe infiltrates persist. Improved aeration right lower lobe. Small e ffusions.
[2020-10-08] MEDS: PIPERACILLIN TAZOBACTAM IVPB SCH ×6 (08:44→23:48)
[2020-10-08] MEDS: WATER IVPB SCH ×6 (08:44→23:48)
[2020-10-08] MEDS: DEXTROSE 5% IVPB SCH ×6 (08:44→23:48)
[2020-10-08] MEDS ORDERED: FUROSEMIDE 10 MG/ML 4 ML VIAL IV STA (09:55)
--- NOTE | 2020-10-08 09:56 | P.PN ---
Subjective Progress Note Date: 10/08/20 This is an 85-year-old white male with 1 day history of right upper quadrant pain, presented initially to the hospital on 09/24/2020, patient was diagnosed as having choledocholithiasis and ascending cholangitis. Patient was seen by gastroenterology on consultation, and he underwent attempted ERCP, however the ERCP was difficult, and could not be diagnostic or therapeutic. This was done on 09/25, and according to the note by the showroom sales consultant multiple attempts were made to advance the scope into the duodenum and visualizing the ampullary orifice was not successful. Hence ERCP was not performed. The showroom sales consultant recommended referral to [facility] for ERCP. Surgery was consulted on the patient on 09/25/2020, and the patient was seen by Dr. Fried. He recommended laparoscopic cholecystectomy and this was supposed to be scheduled on 09/29/2020. In the meantime the patient was found to have E. coli bacteremia and he was on antibiotics all along. On 09/27/2020, patient was noted to have significant blood loss anemia, CT of the abdomen and pelvis showed splenic fracture. Hence Dr. Turcios saw the patient on consultation, and the patient underwent emergency exploratory laparotomy, extensive lysis of adhesions, open splenectomy with control of bleeding, evacuation of hemoperitoneum, application of a wound VAC system, placement of a ANDREA drain in the left splenic fossa and right at pelvis. Due to the emergency situation, open cholecystectomy was not performed, patient was transfused, required a total of 3 units of packed RBCs The patient is postop day #8. The patient was extubated off the mechanical ventilator on 09/29/2020 and the patient has required BiPAP postextubation currently the patient is on high flow oxygen 10 L per minute nasal cannula. There is a concern for an an aspiration of the right upper lobe. Noted the patient was requiring also BiPAP for respiratory support in the BiPAP was utilized pressure of 12/5 cm of water and FiO2 of 50% alternating with high flow oxygen. The patient is currently bacteremic secondary to a component of as cending cholangitis and the patient is currently on IV Zosyn. The patient also developed an acute kidney injury secondary to ATN. On yesterday's evaluation hemoglobin was at 6.8 and the patient received a unit of packed RBC. The CAT scan of the abdomen was also done showing postsplenectomy changes, moderate bilateral pleural effusion increased in size, round vasopressin the lungs could be related to interstitial edema, moderate appearance of the liver, cholelithiasis, colonic diverticulosis, perinephric stranding. The patient has not passed any bowel movements. No abdominal pain. The patient remains nothing by mouth. She hasn't been able to perform a modified barium swallow as the pat ient was quite BiPAP dependent earlier last week. Her white cell count was improving. A from today still showing upper lobe bilateral pulmonary infiltrates right more than left. Lower lungs are essentially more preserved. The patient is currently on oxygen at 8 L per minute nasal cannula. Blood work from today shows a white cell count of 12 with a hemoglobin of 9.9 which is stable compared to yesterday. The serum bicarb is at 19 with a mean of 38 and a creatinine of 1.1. No signs of any GI bleed. The patient remains nothing by mouth. The patient remains quite lethargic and somnolent, responsive to pain only, not to verbal and not following any commands. His breathing is more labored on today's evaluation and he has a deep congested cough, unable to bring up much sputum. His aspiration is in the mid 30s. Abdominal wound is dry clean and intact. ANDREA drains are in place. Output at 20-40cc/hr 10/07/2020, I see the patient is awake and alert and much more interactive compared to yesterday. We took him off Ativan yesterday and the patient's mental status gradually improved during the day and overnight he was on a BiPAP and this morning he was taken off the BiPAP and is fully interactive and communicating and moving all 4 extremities without any limitation. He is answer ing all questions. He remains slightly lethargic and slightly tachypneic. He was taken off the BiPAP and he was placed on 4 L of oxygen by nasal cannula and the patient's chest x-ray still showing diffuse bilaterally pulmonary infiltrates with upper lobe predominance consider aspiration pneumonia and he remains on IV Zosyn. The PICC line was pulled out accidentally by the patient and is currently off TPN. A swallow evaluation is to follow today. He did have a bowel movement. Surgical site over the abdomen is dry clean and intact. No abdominal distention. ANDREA drain is in place and output is 20cc/hr total amount of output from the ANDREA has been 1 95 mL from the one on the right and 20 mL from the 1 on the left ovary 12-hour period. The patient continues to have a component of non-anion gap metabolic acidosis. He'll be started on bicarb infusion to replace the bicarb deficits. The white cell count is at 10.4 with a hemoglobin of 8.6. No evidence of any GI bleed. No evidence of any blood loss intra-abdominal he. No abdominal distention. No other significant events overnight. Quite impressed by the mental status improvement since yesterday. 01/08/2021, the patient is looking well. He is awake and alert and communicating. He is hard of hearing as such is difficult to communicate with him. Nevertheless, he answers the questions appropriately. Currently is on 5 L by nasal cannula. He did not use the BiPAP no all night. Repeat chest x-ray from today shows improvement in the bilateral pulmonary infiltrates. He did have aspiration pneumonia and also considering the possibility of interstitial edema as the patient responded very nicely to that so that was given yesterday and those of 40 mg IV and following that he diuresed approximately 1 L. I'm going to repeat another dose of Lasix. An outpatient modified barium swallow will be done today. He is not receiving any form of nutrition. He is stooling. Abdomen is soft. Bowel sounds. ANDREA drains are still in place and output is minimal at this point declining. The right ANDREA drain has drained approximately 10 mL and the same as for the left ANDREA drain. Urine output is in order of 40-60 mL an hour. His blood work essentially stable , with a hemoglobin of 8.6 is essentially unchanged with a hemoglobin of 8.6, white cell count of 10.7, his BUN is at 33 with a creatinine of 1.2. Serum bicarb is up to 21. LFTs are normal and the serum albumin is down to 2.1. Ammonia level less than 9. Objective - Vital Signs Vital signs: Vital Signs Temp 97 F L 10/08/20 08:00 Pulse 98 10/08/20 09:00 Resp 33 H 10/08/20 09:00 BP 169/73 10/08/20 09:00 Pulse Ox 94 L 10/08/20 09:00 Intake & Output 10/07/20 10/08/20 10/08/20 18:59 06:59 18:59 Intake Total 880 485 120 Output Total 800 1435 130 Balance 80 -950 -10 Weight 61 kg 63.7 kg Intake: IV 880 485 120 Dextrose 5% in Water 1, 730 485 120 000 ml @ 40 mls/hr IV . Q24H FAMILIA with Sodium Bicarb (1 Meq/ml) 150 ml Rx#:[id number] Dextrose 5%-0.9% NaCl 1, 150 000 ml @ 75 mls/hr IV . [id number] FAMILIA Rx#:[id number] Output: Drainage 130 Left Abdomen 10 Right Abdomen 120 Urine 670 1435 130 Other: Voiding Method Indwelling Catheter Indwelling Catheter # Bowel Movements 1 ABP, PAP, CO, CI - Last Documented Arterial Blood Pressure 126/118 - Exam GENERAL EXAM: 85-year-old white male , lethargic, obtunded, not following any commands, breathing seems to be labored as the patient is using his chest and abdominal muscles of breathing. Is currently on oxygen at 5 L HEAD: Normocephalic/atraumatic. EYES: Normal reaction of pupils, equal size. Conjunctiva pink, sclera white. NOSE: Clear with pink turbinates. THROAT: No erythema or exudates. NECK: No masses, no JVD, no thyroid enlargement, no adenopathy. CHEST: No chest wall deformity. Symmetrical expansion. LUNGS: Equal air entry with no crackles, wheeze, rhonchi or dullness. On examination, he is also showing some signs of bronchospasm and wheezing. CVS: Regular rate and rhythm, normal S1 and S2, no gallops, no murmurs, no rubs ABDOMEN: Soft, mildly tender post surgery. No hepatosplenomegaly, normal bowel sounds, no guarding or rigidity. Midabdominal incision is clean dry and intact ANDREA drain output is serosanguineous, 10 mL from the left and 10 from right EXTREMITIES: No clubbing, no edema, no cyanosis, 2+ pulses and upper and lower extremities. MUSCULOSKELETAL: Muscle strength and tone normal. SPINE: No scoliosis or deformity SKIN: No rashes CENTRAL NERVOUS SYSTEM: Somnolent yet arousable and awake upon stimulation. Moving all extremities. Following commands appropriately. No focal neurological deficits. - Labs CBC & Chem 7: 10/08/20 03:08 10/08/20 03:08 Labs: Abnormal Lab Results - Last 24 Hours (Table) 10/07/20 10/08/20 10/08/20 Range/Units 03:32 03:08 03:08 WBC 10.7 H (3.8-10.6) k/uL RBC 2.80 L (4.30-5.90) m/uL Hgb 8.6 L (13.0-17.5) gm/dL Hct 25.5 L (39.0-53.0) % RDW 17.9 H (11.5-15.5) % Neutrophils # 10.0 H (1.3-7.7) k/uL Lymphocytes # 0.4 L (1.0-4.8) k/uL Chloride 116 H (98-107) mmol/L Carbon Dioxide 21 L (22-30) mmol/L BUN 33 H (9-20) mg/dL Glucose 114 H (74-99) mg/dL Calcium 7.5 L (8.4-10.2) mg/dL Iron 35 L (65-175) ug/dL TIBC 209 L (228-460) ug/dL Ferritin 391.1 H (22.0-322.0) ng/mL Total Protein 4.1 L (6.3-8.2) g/dL Albumin 2.1 L (3.5-5.0) g/dL Assessment and Plan Plan: #1. Acute splenic rupture following ERCP, status post exploratory laparotomy, splenectomy and lysis of adhesions on 09/27/2020, postoperative day #10 #2. Postoperative routine mechanical ventilator management, with successful extubation on September 29, requiring BiPAP support after extubation, currently on high flow nasal cannula at 8 L alternating with Bipap this morning, the patient is off the BiPAP and intoxication is also improved and he was weaned down to 5 L of oxygen by nasal cannula. Chest x-ray still showing diffuse upper lobe pulmonary infiltrates more so on the right. This is likely an aspiration pneumonia. He remains on IV Zosyn. Repeat chest x-ray shows improvement in the pulmonary infiltrates specially infiltrate in the right upper lobe. The patient was given a dose of Lasix yesterday and he diuresed adequately. We'll repeat Lasix today. No signs of any significant respiratory distress. #3. Aspiration pneumonia involving the right upper lobe in the left upper lobe #4. Questionable syncope/seizure #5. E. coli bacteremia secondary to acute ascending cholangitis currently on Zosyn #6. Acute blood loss anemia secondary to splenic rupture requiring 3 units of packed red blood cells, and 1 unit of platelets post op. Note that there was further drop in hemoglobin yesterday and the patient received a unit of packed RBC and hemoglobin is stable for now. #7. Acute kidney injury secondary to ATN, improved #8. Postoperative bilateral pleural effusions secondary to aggressive fluid resuscitation and transfusion of blood products #9. History of hyperlipidemia #10. History of gout #11. History of hypertension #12 chronic diverticulosis #13 altered mentation, CAT scan of the brain is negative , #14 difficulty in swallowing and the patient is going to undergo a barium swallow today. plan The remainder FiO2 down to 5 L Given another dose of Lasix 40 mg IV push Discontinue Ativan The bicarb deficit has been replaced and will stop the bicarb drip and will put him at KVO. Continue IV Zosyn Aspiration precautions and proceed with a swallow evaluation Continue bronchodilators Continue steroids as the patient continues to bronchus spastic and wheezy Monitor ANDREA drain Continue Keppra for any potential seizure activity Wound is dry clean and intact Restart the patient on Lovenox 30 mg subcu for DVT prophylaxis The patient feeding he becomes an ongoing issue. He is not tolerating NG tube. He has pulled out his lines for TPN. Today's going to have a modified barium swallow, negative seen on his feeding source. May be beneficial to put a PEG tube although this is another concern is the patient may pull out his PEG tube. I will leave the management of the ANDREA drain to general surgery. Output is minimal at this point in time. We'll continue to follow. Condition is still critical. However, there has been some interval improvement.
[2020-10-08] MEDS: ENOXAPARIN 30 MG/0.3 ML SYRINGE SQ SCH (10:12)
[2020-10-08] MEDS: FAMOTIDINE 20 MG/2 ML VIAL IV SCH (10:12)
--- NOTE | 2020-10-08 10:43 | P.PN ---
Subjective Progress Note Date: 10/08/20 Principal diagnosis: abdominal pain Patient is an 85-year-old male with a past medical history of hypertension and peripheral arterial disease. He had been found to have elevated liver enzymes and has been being worked up as an outpatient basis. Patient had a liver ul trasound and MRCP which suggested cholestasis with multiple gallstones. Patient presented to the emergency department on 09/24/20 with a chief complaint of right upper quadrant abdominal pain 1 day associated with nausea, vomiting, and diarrhea. Patient admitted under our services for acute ascending cholangitis with transaminitis and HERMELINDO. Abdominal ultrasound completed revealing numerous gallstones. Patient was under leukocytosis with a WBC count of 17.1, anemia with hemoglobin of 10.8, and thrombocytopenia with platelet count of 104,000. Acute kidney injury with BUN of 38, creatinine 1.63, and GFR of 38 with baseline hemoglobin of 1.2. Patient was taken for ERCP on 09/[address] 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 Call was made to transfer center and patient was accepted for transfer at [facility] by Dr. Wolfe. Patient was awaiting a bed assignment for transfer to be completed. Blood cultures positive for E. coli, patient provided coverage with continued use of IV antibiotics: Zosyn. His hemoglobin acutely dropped on the morning of 09/27 from 9.5-6.7. This was confirmed on repeat blood draw. He was taken down for emergent CT abdomen and pelvis which showed splenic rupture with possible hemorrhage into the pelvis. Surgery was contacted and the patient emergently went to the OR. 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 2 ANDREA drains were placed. Patient return to the ICU intubated and was successfully extubated on 09/29 and did have some confusion. This continued to worsen. He did not passes swallow evaluation initially. He then had some w orsening of his respiratory status requiring BiPAP therapy. He had possible seizure activity noted, neuro consulted and EEG noted swelling but no epileptiform activity. Neurology has recommended continued Keppra and outpatient prolonged EEG, unable to obtain MRI secondary to restlessness. Repeat head CT with no acute process. He underwent a CT abdomen and pelvis on 10/05 due to low HgB that showed moderate bilateral pleural effusions and groundglass opacities in the lungs, surgical drainage tubes, and a small amount of peritoneal fluid. Again he demonstrated cholelithiasis and a nodular ap pearance to the liver. He continued to struggle with confusion. Patient seen and examined at bedside. awake but still confused, denies abd pain, no nausea, + shortness of breath General: Ill appearing, mild distress, appears younger than stated age Derm: warm, dry Head: atraumatic, normocephalic, symmetric Eyes: Pupils equal round reactive to light, no lid lag, anicteric sclera Mouth: no lip lesion, mucus membranes moist Cardiovascular: S1S2 reg with grade 2 systolic ejection murmur, positive posterior tibial pulse bilateral, Lungs: Decreasing bilateral, no rhonchi, no rales , no accessory muscle use, on vent Abdominal: soft, nondistended, +TTP diffusely, no appreciable organomegaly, d ressing over midline incision, Ext: no gross muscle atrophy, trace edema, no contractures Neuro: Moving all 4 extremities independently, no focal neuro deficits noted. Psych: awake byt confused Acute ascending cholangitis with E. coli bacteremia acute respiratory failure secondary to aspiration pneumonia, probable gram- negative Toxic metabolic encephalopathy -Outpatient MRCP revealed choledocholithiasis with possible obstructive jaundice pattern. -Patient was taken for ERCP on 09/25/[address] Huang, however it was reported that scope could not be advanced. D/W Dr. Yuen and will manage gallbladder as an outpatient at this time, no need for transfer. -Plans will be for outpatient laparoscopic cholecystectomy once acute illness improved. -Repeat blood cultures are negative to date -Zosyn, ID recs -Wean O2 as able -Pulmonary recommendations -Pulmonary hygiene, bronchodilators Splenic rupture with acute blood loss anemia, thrombocytopenia, hypovolemic shock, resolved - s/p 4 units of pRBC and 1 unit of plt - surgery recs -Plan will be for immunization prior to discharge from hospital for day 14 (10/12/20) whichever comes first. Patient will need strep pneumonia vaccine, meningitis, and Haemophilus influenza B prior to discharge. Hyperchloremic metabolic acidosis -Secondary to decreased free water intake and fluids with chloride amount -Discussed with pharmacy and will remove chloride from Zosyn -D5W with 3 A bicarb at low rate -Repeat labs in a.m. Possible seizure versus myoclonic jerking -Neurology recommendations appreciated -Continue with Keppra -Outpatient prolonged EEG to determine if antiepileptic medication will continue to be needed Acute kidney injury, resolved - baseline creatinine of 1.2. -Hold nephrotoxic medications -Continue to hold lisinopril secondary to recent hypotension requiring norepinephrine. Hypertension -With recent hypotension -atenolol -hold lisinopril -Follow blood pressures Dysphagia - failed swallow study. speech evaluation and MBS on 10/08, if fails today will need NGT with TF, will be high risk for refeeding syndrome. Hypernatremia, resolved DVT prophylaxis: SCDs Discussed with: nursing Anticipated discharge: undetermined Anticipated discharge place: undetermined A total of 36 minutes was spent on the care of this complex patient more than 50% of the time was spent in counseling and care coordination. Objective - Vital Signs Vital signs: Vital Signs Temp 97 F L 10/08/20 08:00 Pulse 98 10/08/20 09:00 Resp 33 H 10/08/20 09:00 BP 169/73 10/08/20 09:00 Pulse Ox 94 L 10/08/20 09:00 Intake & Output 10/07/20 10/08/20 10/08/20 18:59 06:59 18:59 Intake Total 880 485 120 Output Total 800 1435 130 Balance 80 -950 -10 Weight 61 kg 63.7 kg Intake: IV 880 485 120 Dextrose 5% in Water 1, 730 485 120 000 ml @ 40 mls/hr IV . Q24H FAMILIA with Sodium Bicarb (1 Meq/ml) 150 ml Rx#:[id number] Dextrose 5%-0.9% NaCl 1, 150 000 ml @ 75 mls/hr IV . [id number] FAMILIA Rx#:[id number] Output: Drainage 130 Left Abdomen 10 Right Abdomen 120 Urine 670 1435 130 Other: Voiding Method Indwelling Catheter Indwelling Catheter # Bowel Movements 1 ABP, PAP, CO, CI - Last Documented Arterial Blood Pressure 126/118 - Labs CBC & Chem 7: 10/08/20 03:08 10/08/20 03:08 Labs: Abnormal Lab Results - Last 24 Hours (Table) 10/07/20 10/08/20 10/08/20 Range/Units 03:32 03:08 03:08 WBC 10.7 H (3.8-10.6) k/uL RBC 2.80 L (4.30-5.90) m/uL Hgb 8.6 L (13.0-17.5) gm/dL Hct 25.5 L (39.0-53.0) % RDW 17.9 H (11.5-15.5) % Neutrophils # 10.0 H (1.3-7.7) k/uL Lymphocytes # 0.4 L (1.0-4.8) k/uL Chloride 116 H (98-107) mmol/L Carbon Dioxide 21 L (22-30) mmol/L BUN 33 H (9-20) mg/dL Glucose 114 H (74-99) mg/dL Calcium 7.5 L (8.4-10.2) mg/dL Iron 35 L (65-175) ug/dL TIBC 209 L (228-460) ug/dL Ferritin 391.1 H (22.0-322.0) ng/mL Total Protein 4.1 L (6.3-8.2) g/dL Albumin 2.1 L (3.5-5.0) g/dL
--- NOTE | 2020-10-08 13:49 | FL ---
EXAMINATION TYPE: FL barium swallow w video DATE OF EXAM: 10/08/2020 COMPARISON: NONE HISTORY: bedside exam, rule out silent aspiration TECHNIQUE: Fluoroscopy. FINDINGS: Fluoroscopic guidance was provided for the procedure performed in conjunction with the [facility] department. Please see complete report forthcoming from the Speech Pathology departmen t. Various consistencies from thin liquid to solids were administered. Fluoroscopy time 3 minutes 23 seconds. Number of images: 0. No aspiration or penetration was evident. There is moderate pooling was observed in the vallecula, greater with thicker consistencies. There is free spill of the thin liquids without aspiration or penetration through the hypopharynx to the esophagus. IMPRESSION: 1. Free spill with thinner consistencies from the posterior oral pharynx to the esophagus without stanley dence of aspiration or penetration. 2. Moderate residuals within the vallecula.
--- NOTE | 2020-10-08 15:34 | P.PN ---
<Natalia Dial - Last Filed: 10/08/20 15:28> Subjective Progress Note Date: 10/08/20 CHIEF COMPLAINT: Right upper quadrant abdominal pain HISTORY OF PRESENT ILLNESS: Patient admitted to the hospital for ascending cholangitis. He was in transition for transfer to [facility] for definitive ERCP for common bile duct obstruction when he developed acute blood loss anemia and CT findings of ruptured spleen. 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 Patient remains in the ICU. Patient had modified barium swallow this morning that did not show any signs of aspiration. Patient started on dysphagia level III chopped diet per speech therapy recommendations. Patient lying in bed comfortably. He does report some abdominal pain. He has been having bowel movements. Denies any nausea or vomiting. Afebrile WBC 10.7 hemoglobin 8.6 platelets 315 sodium 141 potassium 3.6 creatinine 1.21 LFTs normal iron level 35 PHYSICAL EXAM: VITAL SIGNS: Reviewed. GENERAL: Well-developed in no acute distress. HEENT: No sclera icterus. Extraocular movements grossly intact. Moist buccal mucosa. Head is atraumatic, normocephalic. ABDOMEN: Soft. Incision site clean dry and intact. 2 ANDREA drains with serous output NEUROLOGIC: Lethargic ASSESSMENT: 1. Acute splenic rupture of unclear etiology. Status post Exploratory laparotomy with extensive lysis of adhesions, open splenectomy and evacuation of hemoperitoneum 2. Acute blood loss anemia due to splenic rupture 3. Ascending cholangitis with bacteremia 4. Symptomatic gallstone 5. Thrombocytopenia 6. Possible seizure 7. Acute kidney injury 8. Dysphagia 9. Aspiration pneumonia 10. Bilateral pleural effusions 11. Hard of hearing PLAN: -Continue ICU management and supportive care -Will need immunizations for post-splenectomy management in 10 to 14 days, otherwise, 10/07/20 to 10/12/20. -Cholecystectomy deferred -Encourage incentive spirometry use -Continue antibiotics per ID -Patient started on dysphagia level III chopped diet today Physician [employer]sembling [employer] note has been reviewed by physician. Signing provider agrees with the documented findings, assessment, and plan of care. Objective - Vital Signs Vital signs: Vital Signs Temp 98.7 F 10/08/20 12:00 Pulse 82 10/08/20 15:04 Resp 29 H 10/08/20 15:04 BP 155/49 10/08/20 15:04 Pulse Ox 93 L 10/08/20 15:00 Intake & Output 10/07/20 10/08/20 10/08/20 18:59 06:59 18:59 Intake Total 880 485 490 Output Total 800 1435 1230 Balance 80 -950 -740 Weight 61 kg 63.7 kg 63.7 kg Intake: IV 880 485 240 Dextrose 5% in Water 1, 730 485 240 000 ml @ 40 mls/hr IV . Q24H FAMILIA with Sodium Bicarb (1 Meq/ml) 150 ml Rx#:[id number] Dextrose 5%-0.9% NaCl 1, 150 000 ml @ 75 mls/hr IV . [id number] FAMILIA Rx#:[id number] Oral 250 Output: Drainage 130 140 Left Abdomen 10 Right Abdomen 120 140 Urine 670 1435 1090 Other: Voiding Method Indwelling Catheter Indwelling Catheter Indwelling Catheter # Voids 0 # Bowel Movements 1 ABP, PAP, CO, CI - Last Documented Arterial Blood Pressure 126/118 - Labs CBC & Chem 7: 10/08/20 03:08 10/08/20 03:08 Labs: Abnormal Lab Results - Last 24 Hours (Table) 10/07/20 10/08/20 10/08/20 Range/Units 03:32 03:08 03:08 WBC 10.7 H (3.8-10.6) k/uL RBC 2.80 L (4.30-5.90) m/uL Hgb 8.6 L (13.0-17.5) gm/dL Hct 25.5 L (39.0-53.0) % RDW 17.9 H (11.5-15.5) % Neutrophils # 10.0 H (1.3-7.7) k/uL Lymphocytes # 0.4 L (1.0-4.8) k/uL Chloride 116 H (98-107) mmol/L Carbon Dioxide 21 L (22-30) mmol/L BUN 33 H (9-20) mg/dL Glucose 114 H (74-99) mg/dL Calcium 7.5 L (8.4-10.2) mg/dL Iron 35 L (65-175) ug/dL TIBC 209 L (228-460) ug/dL Ferritin 391.1 H (22.0-322.0) ng/mL Total Protein 4.1 L (6.3-8.2) g/dL Albumin 2.1 L (3.5-5.0) g/dL <PernellFaith navarrete N - Last Filed: 10/08/20 19:59> Objective - Vital Signs Vital signs: Vital Signs Temp 97.6 F 10/08/20 16:00 Pulse 99 10/08/20 19:23 Resp 20 10/08/20 19:00 BP 158/65 10/08/20 19:00 Pulse Ox 94 L 10/08/20 19:00 Intake & Output 10/08/20 10/08/20 10/09/20 06:59 18:59 06:59 Intake Total 485 950 20 Output Total 1435 1605 25 Balance -950 -655 -5 Weight 63.7 kg 63.7 kg Intake: IV 485 500 20 0.9 Sodium Chloride 60 20 Dextrose 5% in Water 1, 485 240 000 ml @ 40 mls/hr IV . Q24H FAMILIA with Sodium Bicarb (1 Meq/ml) 150 ml Rx#:[id number] Piperacillin-Tazobactam 3 100 .375 gm In Dextrose 5% in Water 100 ml @ 25 mls/hr IVPB Q8HR FAMILIA Rx#: [id number] levETIRAcetam IV 500 mg 100 In Sodium Chloride 0.9% 100 ml @ 400 mls/hr IVPB Q12H FAMILIA Rx#:[id number] Oral 450 Output: Drainage 190 Right Abdomen 190 Urine 1435 1415 25 Other: Voiding Method Indwelling Catheter Indwelling Catheter # Voids 0 # Bowel Movements 1 ABP, PAP, CO, CI - Last Documented Arterial Blood Pressure 126/118 - Labs CBC & Chem 7: 10/08/20 03:08 10/08/20 03:08 Labs: Abnormal Lab Results - Last 24 Hours (Table) 10/07/20 10/08/20 10/08/20 Range/Units 03:32 03:08 03:08 WBC 10.7 H (3.8-10.6) k/uL RBC 2.80 L (4.30-5.90) m/uL Hgb 8.6 L (13.0-17.5) gm/dL Hct 25.5 L (39.0-53.0) % RDW 17.9 H (11.5-15.5) % Neutrophils # 10.0 H (1.3-7.7) k/uL Lymphocytes # 0.4 L (1.0-4.8) k/uL Chloride 116 H (98-107) mmol/L Carbon Dioxide 21 L (22-30) mmol/L BUN 33 H (9-20) mg/dL Glucose 114 H (74-99) mg/dL Calcium 7.5 L (8.4-10.2) mg/dL Iron 35 L (65-175) ug/dL TIBC 209 L (228-460) ug/dL Ferritin 391.1 H (22.0-322.0) ng/mL Total Protein 4.1 L (6.3-8.2) g/dL Albumin 2.1 L (3.5-5.0) g/dL Assessment and Plan (1) Acute blood loss anemia Current Visit: Yes Status: Acute Code(s): D62 - ACUTE POSTHEMORRHAGIC ANEMIA SNOMED Code(s): 736015113 (2) Ruptured spleen Current Visit: Yes Status: Acute Code(s): S36.09XA - OTHER INJURY OF SPLEEN, INITIAL ENCOUNTER SNOMED Code(s): 425524601 (3) Acute kidney injury Current Visit: Yes Status: Acute Code(s): N17.9 - ACUTE KIDNEY FAILURE, UNSP ECIFIED SNOMED Code(s): 82423637 (4) Ascending cholangitis Current Visit: Yes Status: Acute Code(s): K83.09 - OTHER CHOLANGITIS SNOMED Code(s): 63348788 (5) Choledocholithiasis Current Visit: Yes Status: Acute Code(s): K80.50 - CALCULUS OF BILE DUCT W/O CHOLANGITIS OR CHOLECYST W/O OBST SNOMED Code(s): 684132460
--- NOTE | 2020-10-08 17:23 | P.PN ---
Subjective Progress Note Date: 10/08/20 10/08/2020: Patient is doing much better. Sitting in the recliner. Very comfortable. Patient has passed swallow. He walked to the door with a therapist. Currently not on any sedation. Denies any nausea. Patient is oriented 3 per nursing report. 10/07/2020: Patient was seen for a follow-up. Patient not using any BiPAP, appears much more comfortable. He was very alert and awake. Watching TV. Does not cooperate with detailed examination. Offers no complaints. 10/06/2020: Patient was seen for a follow-up. Patient was initially seen by Dr. Satya Garcia. Please refer to his note for details. This is an 85-year-old gentleman with medical history of hypertension, h yperlipidemia who presented emergency department on 09/24/2020 for abdominal pain, nausea and vomiting. Neurology was consulted because of the possible seizure and altered mental status. History is obtained from medical record. During the hospital stay, patient underwent ERCP for gallstone but was unsuccessful and therefore developed splenic rupture. The patient the was diagnosed of having choledocholithiasis and ascending cholangitis. CT of the abdomen and pelvis showed splenic fracture. On September 27 patient underwent exploratory laparotomy, lysis of adhesion and splenectomy. The gallbladder was not removed. During the hospital stay the patient was transfused 3 units of red blood cell since his admission and 1 unit of platelet. Postsurgically the patient was intubated on mechanical ventilation. The patient was extubated on September 29. Then per medical records, on 10/01/2020 patient started becoming unresponsive and having shaken mild clonus-type the jerking movement of bilateral lower extremity and increased muscle tone of bilateral upper extremity. During these episodes it is reported the blood pressure is 170 sytolic. During these episodes the patient will mumbling words and was incomprehensive. Patient was given 1 mg Ativan. Per the ICU nurse what transpired on the 10/01/2020 the patient was going from ICU to the floors and wall he was being transferred the and being placed on a floor bed and he had this episode that. Per the patient's ICU nurse, she stated that the patient is appropriate but is somewhat confused during the hospital hospital stay. The ICU nurse stated that she had this patient not only today but she had a prior and that she said that for the last 3 days in the ICU unit had the intermittent jerking of the left lower extremity lasting for seconds to about a minute but during these episodes he is responsive.. She has not noticed any foaming around the mouth, she denies any gaze deviation that she appreciated during these episodes. Patient had a seizure type episode on 10/01/2020. He was placed on Keppra 500 mg twice a day. WORK-UP: CT of the head on 10/01/2020 is reported as cerebral atrophy. No acute intracranial abnormality. Routine EEG on 10/02/20: Is an abnormal routine EEG. The background slowing is suggestive of mild encephalopathy. There are no focal slowing, epileptiform discharges or seizure on the EEG. TSH: 2.79 (normal). Ionized calcium 4.9 (normal). AST of 30 and ALT of 26. Ammonia level on 10/01/2020 is less than 9. Objective - Vital Signs Vital signs: Vital Signs Temp 97.6 F 10/08/20 16:00 Pulse 88 10/08/20 17:00 Resp 28 H 10/08/20 17:00 BP 158/100 10/08/20 17:00 Pulse Ox 95 10/08/20 17:00 Intake & Output 10/07/20 10/08/20 10/08/20 18:59 06:59 18:59 Intake Total 880 485 530 Output Total 800 1435 1515 Balance 80 -950 -985 Weight 61 kg 63.7 kg 63.7 kg Intake: IV 880 485 280 0.9 Sodium Chloride 40 Dextrose 5% in Water 1, 730 485 240 000 ml @ 40 mls/hr IV . Q24H FAMILIA with Sodium Bicarb (1 Meq/ml) 150 ml Rx#:[id number] Dextrose 5%-0.9% NaCl 1, 150 000 ml @ 75 mls/hr IV . [id number] FAMILIA Rx#:[id number] Oral 250 Output: Drainage 130 190 Left Abdomen 10 Right Abdomen 120 190 Urine 670 1435 1325 Other: Voiding Method Indwelling Catheter Indwelling Catheter Indwelling Catheter # Voids 0 # Bowel Movements 1 1 ABP, PAP, CO, CI - Last Documented Arterial Blood Pressure 126/118 - Exam On examination patient is an elderly male, sitting in the recliner, in no distress. Mental status is intact, fully alert and awake. Speech and language functions appears normal. He has decreased dentition therefore have some issues as a result. Otherwise no aphasia or dysarthria. Pupils are round and reacting. Pupils are round and reacting. Extraocular muscles are intact. Patient did not cooperate for visual field testing. Face is symmetric. Tongue protrudes the midline. Hearing appears somewhat decreased. Tone is equal. Reflexes are 2+ to 3 in the upper limbs, 3 at the knees to ankles . Tone is equal. Bulk of muscles overall mildly decreased. - Labs CBC & Chem 7: 10/08/20 03:08 10/08/20 03:08 Labs: Abnormal Lab Results - Last 24 Hours (Table) 10/07/20 10/08/20 10/08/20 Range/Units 03:32 03:08 03:08 WBC 10.7 H (3.8-10.6) k/uL RBC 2.80 L (4.30-5.90) m/uL Hgb 8.6 L (13.0-17.5) gm/dL Hct 25.5 L (39.0-53.0) % RDW 17.9 H (11.5-15.5) % Neutrophils # 10.0 H (1.3-7.7) k/uL Lymphocytes # 0.4 L (1.0-4.8) k/uL Chloride 116 H (98-107) mmol/L Carbon Dioxide 21 L (22-30) mmol/L BUN 33 H (9-20) mg/dL Glucose 114 H (74-99) mg/dL Calcium 7.5 L (8.4-10.2) mg/dL Iron 35 L (65-175) ug/dL TIBC 209 L (228-460) ug/dL Ferritin 391.1 H (22.0-322.0) ng/mL Total Protein 4.1 L (6.3-8.2) g/dL Albumin 2.1 L (3.5-5.0) g/dL Assessment and Plan Assessment: * One reported myoclonic seizure-like activity on 10/01/2020 and episodes of intermittent focal motor jerking of the left lower extremity (but responsive for jerking of leg). Possibly could be more metabolicmyoclonic tremors, seizures much less likely. Possibly provoked from underlying sepsis/metabolic. No documented history of seizure---no further episodes * Altered mental status due to septic encephalopathy--mentation improving * E. coli bacteremia secondary due to acute ascending cholangitis * Status post exposure laparotomy, splenectomy and lysis of adhesion for splenic rupture on 09/27/2020 * Acute blood loss anemia secondary due to splenic rupture * History of hypertension * History of hyperlipidemia Plan: * Patient's mentation has improved. We will decrease Keppra down to 250 mg twi ce a day. Change to oral route. In one week, may discontinue Keppra, it remains stable. * Infection disease team is on board. * We'll defer the rest of the medical management to the primary team and ICU team. * Patient appears to have improved significantly as compared to yesterday. * Neurology will sign off. Please reconsult neurology if any concerns.
--- NOTE | 2020-10-08 17:50 | PN ---
PROGRESS NOTE DATE OF SERVICE: 10/08/2020 REASON FOR FOLLOWUP: Aspiration pneumonia, cholangitis and bacteremia. INTERVAL HISTORY: Patient is afebrile. The patient is hemodynamically stable. He is currently on 3 L nasal cannula. The patient remains to be pleasantly confused. No agitation has been noticed. No vomiting, diarrhea or any other changes by nursing staff. PHYSICAL EXAMINATION: Blood pressure 158/100 with a pulse of 80, temperature 98. She is 95% on 3 L nasal cannula. General description is an elderly female lying in bed in no distress. Respiratory system: Unlabored breathing, decreased breath sounds in the base, no wheeze. Heart S1, S2. Regular rate and rhythm. Abdomen: Soft, no tenderness. LABORATORY DATA: Hemoglobin 8.4, white count 10.7, BUN of 33, creatinine is 1.21. DIAGNOSTIC IMPRESSION AND PLAN: Patient with splenic rupture status post splenectomy, concern for cholangitis, E coli bacteremia and subsequently aspiration pneumonia. Patient is covered with Zosyn and has shown clinical response to continue and monitor clinical course closely. MMODL / IJN: [id number] /
[2020-10-08] MEDS: levETIRAcetam 250 MG TAB PO SCH (20:24)
[2020-10-09 04:53] LABS: Anisocytosis Slight; HCT 27.9 % (39.0-53.0); HGB 9.3 gm/dL (13.0-17.5); Hypochromasia Slight; MCH 30.8 pg (25.0-35.0); MCHC 33.5 g/dL (31.0-37.0); MCV 91.9 fL (80.0-100.0); Platelet Count 268 k/uL (150-450); Poikilocytosis Slight; RBC 3.04 m/uL (4.30-5.90); RDW 17.7 % (11.5-15.5); WBC 9.7 k/uL (3.8-10.6)
[2020-10-09 05:03] LABS: Magnesium 1.9 mg/dL (1.6-2.3); Phosphorus 3.5 mg/dL (2.5-4.5); Potassium 3.8 mmol/L (3.5-5.1)
[2020-10-09] MEDS: METOPROLOL TARTRATE 5 MG/5 ML VIAL IVP SCH (05:14)
[2020-10-09] MEDS ORDERED: Magnesium Replacement Protocol 1 EACH MISC MISCELLANE PRN (05:58)
[2020-10-09] MEDS: MAGNESIUM SULFATE-D5W PMX 1 GM in DEXTROSE/WATER 1 100ML.BAG IVPB SCH ×2 (06:13→07:17)
[2020-10-09] MEDS: POTASSIUM CHLORIDE 10 MEQ in WATER FOR INJECTION 1 100ML.BAG IVPB SCH ×2 (06:13→07:18)
[2020-10-09] MEDS: hydrALAZINE HCL 20 MG/ML 1 ML VIAL IVP PRN (06:14)
[2020-10-09] MEDS: BUDESONIDE 1 MG/2 ML NEBU INHALATION SCH ×2 (08:11→20:17)
[2020-10-09] MEDS: IPRATROPIUM-ALBUTEROL 3 ML NEB INHALATION SCH ×4 (08:11→20:18)
[2020-10-09] MEDS: FORMOTEROL FUMARATE 20 MCG/2 ML NEBU INHALATION SCH ×2 (08:11→20:17)
[2020-10-09] MEDS: WATER IVPB SCH ×4 (08:25→16:29)
[2020-10-09] MEDS: PIPERACILLIN TAZOBACTAM IVPB SCH ×4 (08:25→16:29)
[2020-10-09] MEDS: DEXTROSE 5% IVPB SCH ×4 (08:25→16:29)
[2020-10-09] MEDS: methylPREDNISolone SOD SUCCI 40 MG/ML 1 ML VIAL IV SCH ×2 (08:25→16:29)
[2020-10-09] MEDS: ENOXAPARIN 30 MG/0.3 ML SYRINGE SQ SCH (08:26)
[2020-10-09] MEDS: FAMOTIDINE 20 MG/2 ML VIAL IV SCH (08:26)
[2020-10-09] MEDS: levETIRAcetam 250 MG TAB PO SCH ×2 (08:27→20:33)
[2020-10-09] MEDS ORDERED: FUROSEMIDE 10 MG/ML 4 ML VIAL IV STA (10:55)
--- NOTE | 2020-10-09 10:55 | P.PN ---
Subjective Progress Note Date: 10/09/20 This is an 85-year-old white male with 1 day history of right upper quadrant pain, presented initially to the hospital on 09/24/2020, patient was diagnosed as having choledocholithiasis and ascending cholangitis. Patient was seen by gastroenterology on consultation, and he underwent attempted ERCP, however the ERCP was difficult, and could not be diagnostic or therapeutic. This was done on 09/25, and according to the note by the reception agent multiple attempts were made to advance the scope into the duodenum and visualizing the ampullary orifice was not successful. Hence ERCP was not performed. The reception agent recommended referral to [facility] for ERCP. Surgery was consulted on the patient on 09/25/2020, and the patient was seen by Dr. Fried. He recommended laparoscopic cholecystectomy and this was supposed to be scheduled on 09/29/2020. In the meantime the patient was found to have E. coli bacteremia and he was on antibiotics all along. On 09/27/2020, patient was noted to have significant blood loss anemia, CT of the abdomen and pelvis showed splenic fracture. Hence Dr. Turcios saw the patient on consultation, and the patient underwent emergency exploratory laparotomy, extensive lysis of adhesions, open splenectomy with control of bleeding, evacuation of hemoperitoneum, application of a wound VAC system, placement of a ANDREA drain in the left splenic fossa and right at pelvis. Due to the emergency situation, open cholecystectomy was not performed, patient was transfused, required a total of 3 units of packed RBCs The patient is postop day #8. The patient was extubated off the mechanical ventilator on 09/29/2020 and the patient has required BiPAP postextubation currently the patient is on high flow oxygen 10 L per minute nasal cannula. There is a concern for an an aspiration of the right upper lobe. Noted the patient was requiring also BiPAP for respiratory support in the BiPAP was utilized pressure of 12/5 cm of water and FiO2 of 50% alternating with high flow oxygen. The patient is currently bacteremic secondary to a component of as cending cholangitis and the patient is currently on IV Zosyn. The patient also developed an acute kidney injury secondary to ATN. On yesterday's evaluation hemoglobin was at 6.8 and the patient received a unit of packed RBC. The CAT scan of the abdomen was also done showing postsplenectomy changes, moderate bilateral pleural effusion increased in size, round vasopressin the lungs could be related to interstitial edema, moderate appearance of the liver, cholelithiasis, colonic diverticulosis, perinephric stranding. The patient has not passed any bowel movements. No abdominal pain. The patient remains nothing by mouth. She hasn't been able to perform a modified barium swallow as the pat ient was quite BiPAP dependent earlier last week. Her white cell count was improving. A from today still showing upper lobe bilateral pulmonary infiltrates right more than left. Lower lungs are essentially more preserved. The patient is currently on oxygen at 8 L per minute nasal cannula. Blood work from today shows a white cell count of 12 with a hemoglobin of 9.9 which is stable compared to yesterday. The serum bicarb is at 19 with a mean of 38 and a creatinine of 1.1. No signs of any GI bleed. The patient remains nothing by mouth. The patient remains quite lethargic and somnolent, responsive to pain only, not to verbal and not following any commands. His breathing is more labored on today's evaluation and he has a deep congested cough, unable to bring up much sputum. His aspiration is in the mid 30s. Abdominal wound is dry clean and intact. ANDREA drains are in place. Output at 20-40cc/hr 10/07/2020, I see the patient is awake and alert and much more interactive compared to yesterday. We took him off Ativan yesterday and the patient's mental status gradually improved during the day and overnight he was on a BiPAP and this morning he was taken off the BiPAP and is fully interactive and communicating and moving all 4 extremities without any limitation. He is answer ing all questions. He remains slightly lethargic and slightly tachypneic. He was taken off the BiPAP and he was placed on 4 L of oxygen by nasal cannula and the patient's chest x-ray still showing diffuse bilaterally pulmonary infiltrates with upper lobe predominance consider aspiration pneumonia and he remains on IV Zosyn. The PICC line was pulled out accidentally by the patient and is currently off TPN. A swallow evaluation is to follow today. He did have a bowel movement. Surgical site over the abdomen is dry clean and intact. No abdominal distention. ANDREA drain is in place and output is 20cc/hr total amount of output from the ANDREA has been 1 95 mL from the one on the right and 20 mL from the 1 on the left ovary 12-hour period. The patient continues to have a component of non-anion gap metabolic acidosis. He'll be started on bicarb infusion to replace the bicarb deficits. The white cell count is at 10.4 with a hemoglobin of 8.6. No evidence of any GI bleed. No evidence of any blood loss intra-abdominal he. No abdominal distention. No other significant events overnight. Quite impressed by the mental status improvement since yesterday. 01/08/2021, the patient is looking well. He is awake and alert and communicating. He is hard of hearing as such is difficult to communicate with him. Nevertheless, he answers the questions appropriately. Currently is on 5 L by nasal cannula. He did not use the BiPAP no all night. Repeat chest x-ray from today shows improvement in the bilateral pulmonary infiltrates. He did have aspiration pneumonia and also considering the possibility of interstitial edema as the patient responded very nicely to that so that was given yesterday and those of 40 mg IV and following that he diuresed approximately 1 L. I'm going to repeat another dose of Lasix. An outpatient modified barium swallow will be done today. He is not receiving any form of nutrition. He is stooling. Abdomen is soft. Bowel sounds. ANDREA drains are still in place and output is minimal at this point declining. The right ANDREA drain has drained approximately 10 mL and the same as for the left ANDREA drain. Urine output is in order of 40-60 mL an hour. His blood work essentially stable , with a hemoglobin of 8.6 is essentially unchanged with a hemoglobin of 8.6, white cell count of 10.7, his BUN is at 33 with a creatinine of 1.2. Serum bicarb is up to 21. LFTs are normal and the serum albumin is down to 2.1. Ammonia level less than 9. 01/09/2021, patient is being seen for a follow-up. The patient is confused this morning. He is pleasantly confused. He is not agitated. He is not oriented to place and time. He is not oriented to people. His neurologic exam is nonfocal. He is obviously delirious. He remains on oxygen at 4 L per minute nasal cannula. Chest x-ray showing some limited improvement in infiltrates bilaterally. There is better visualization of the right hemidiaphragm. Noted the patient was given a dose of Lasix yesterday 40 mg IV push and his fluid balance has been essentially negativeAnd the patient has been negative fluid balance of 1.1 m at least for the past 24 hours. He is remaining on IV Zosyn. He is afebrile. ANDREA drain has put out approximately 1 20 mL on the right and 70 mL on the left. He passed a swallow evaluation. He is taken some limited dysphagia diet. Otherwise, his white cell count is at 9.7 with a hemoglobin of 9.3. BNP is at 33 with a creatinine of 1.25. Magnesium is at 1.9. IV fluids are currently at KVO at 20 mL an hour. He is still on Keppra. This will be weaned off and discontinued per neurology. Objective - Vital Signs Vital signs: Vital Signs Temp 97.3 F L 10/09/20 08:00 Pulse 73 10/09/20 10:00 Resp 19 10/09/20 10:00 BP 144/68 10/09/20 10:00 Pulse Ox 99 10/09/20 10:00 Intake & Output 10/08/20 10/09/20 10/09/20 18:59 06:59 18:59 Intake Total 950 360 240 Output Total 1605 840 330 Balance -655 -480 -90 Weight 63.7 kg 58.4 kg Intake: IV 500 360 240 0.9 Sodium Chloride 60 260 40 Dextrose 5% in Water 1, 240 000 ml @ 40 mls/hr IV . Q24H [facility] with Sodium Bicarb (1 Meq/ml) 150 ml Rx#:[id number] Magnesium Sulfate-D5w Pmx 100 1 gm In Dextrose/Water 1 100ml.bag @ 100 mls/hr IVPB Q1H [facility] Rx#: [id number] Piperacillin-Tazobactam 3 100 100 .375 gm In Dextrose 5% in Water 100 ml @ 25 mls/hr IVPB Q8HR [facility] Rx#: [id number] Potassium Chloride 10 meq 100 In Water For Injection 1 100ml.bag @ 100 mls/hr IVPB Q1H [facility] Rx#: [id number] levETIRAcetam IV 500 mg 100 In Sodium Chloride 0.9% 100 ml @ 400 mls/hr IVPB Q12H [facility] Rx#:[id number] Oral 450 Output: Drainage 190 120 80 Left Abdomen 40 Right Abdomen 190 80 80 Urine 1415 720 250 Other: Voiding Method Indwelling Catheter Indwelling Catheter # Voids 0 60 # Bowel Movements 1 ABP, PAP, CO, CI - Last Documented Arterial Blood Pressure 126/118 - Exam GENERAL EXAM: 85-year-old white male , lethargic, obtunded, not following any commands, breathing seems to be labored as the patient is using his chest and abdominal muscles of breathing. Is currently on oxygen at 4 L HEAD: Normocephalic/atraumatic. EYES: Normal reaction of pupils, equal size. Conjunctiva pink, sclera white. NOSE: Clear with pink turbinates. THROAT: No erythema or exudates. NECK: No masses, no JVD, no thyroid enlargement, no adenopathy. CHEST: No chest wall deformity. Symmetrical expansion. LUNGS: Equal air entry with no crackles, wheeze, rhonchi or dullness. On examination, he is also showing some signs of bronchospasm and wheezing. CVS: Regular rate and rhythm, normal S1 and S2, no gallops, no murmurs, no rubs ABDOMEN: Soft, mildly tender post surgery. No hepatosplenomegaly, normal bowel sounds, no guarding or rigidity. Midabdominal incision is clean dry and intact ANDREA drain output is serosanguineous, 70 mL from the left and 120 from right EXTREMITIES: No clubbing, no edema, no cyanosis, 2+ pulses and upper and lower extremities. MUSCULOSKELETAL: Muscle strength and tone normal. SPINE: No scoliosis or deformity SKIN: No rashes CENTRAL NERVOUS SYSTEM: confused, delirious on today's evaluation - Labs CBC & Chem 7: 10/09/20 04:15 10/09/20 04:15 Labs: Abnormal Lab Results - Last 24 Hours (Table) 10/09/20 10/09/20 Range/Units 04:15 04:15 RBC 3.04 L (4.30-5.90) m/uL Hgb 9.3 L (13.0-17.5) gm/dL Hct 27.9 L (39.0-53.0) % RDW 17.7 H (11.5-15.5) % Chloride 115 H (98-107) mmol/L Carbon Dioxide 21 L (22-30) mmol/L BUN 33 H (9-20) mg/dL Calcium 8.0 L (8.4-10.2) mg/dL Assessment and Plan Plan: #1. Acute splenic rupture following ERCP, status post exploratory laparotomy, splenectomy and lysis of adhesions on 09/27/2020, postoperative day #11 #2. Postoperative routine mechanical ventilator management, with successful extubation on September 29, requiring BiPAP support after extubation, currently on high flow nasal cannula at 4 L This is likely an aspiration pneumonia. He remains on IV Zosyn. CXr stable, slightly improved #3. Aspiration pneumonia involving the right upper lobe in the left upper lobe #4. Questionable syncope/seizure #5. E. coli bacteremia secondary to acute ascending cholangitis currently on Zosyn #6. Acute blood loss anemia secondary to splenic rupture requiring 3 units of packed red blood cells, and 1 unit of platelets post op. Note that there was further drop in hemoglobin yesterday and the patient received a unit of packed RBC and hemoglobin is stable for now. #7. Acute kidney injury secondary to ATN, improved #8. Postoperative bilateral pleural effusions secondary to aggressive fluid resuscitation and transfusion of blood products #9. History of hyperlipidemia #10. History of gout #11. History of hypertension #12 chronic diverticulosis #13 altered mentation, CAT scan of the brain is negative , #14 difficulty in swallowing and the patient is going to undergo a barium swallow today. #15 Delerium plan The remainder FiO2 down to 4 L Given another dose of Lasix 40 mg IV push Discontinue Ativan we'll start the patient on Seroquel The bicarb deficit has been replaced and will stop the bicarb drip and will put him at KVO. Continue IV Zosyn Aspiration precautions and proceed with a swallow evaluation Continue bronchodilators Continue steroids as the patient continues to bronchus spastic and wheezy Monitor ANDREA drain Discontinue Keppra Wound is dry clean and intact Restart the patient on Lovenox 30 mg subcu for DVT prophylaxis Continue with Diet Keep in the MICU
--- NOTE | 2020-10-09 10:56 | P.PN ---
Subjective Progress Note Date: 10/09/20 Principal diagnosis: abdominal pain Patient is an 85-year-old male with a past medical history of hypertension and peripheral arterial disease. He had been found to have elevated liver enzymes and has been being worked up as an outpatient basis. Patient had a liver ul trasound and MRCP which suggested cholestasis with multiple gallstones. Patient presented to the emergency department on 09/24/20 with a chief complaint of right upper quadrant abdominal pain 1 day associated with nausea, vomiting, and diarrhea. Patient admitted under our services for acute ascending cholangitis with transaminitis and HERMELINDO. Abdominal ultrasound completed revealing numerous gallstones. Patient was under leukocytosis with a WBC count of 17.1, anemia with hemoglobin of 10.8, and thrombocytopenia with platelet count of 104,000. Acute kidney injury with BUN of 38, creatinine 1.63, and GFR of 38 with baseline hemoglobin of 1.2. Patient was taken for ERCP on 09/[address] 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 Call was made to transfer center and patient was accepted for transfer at [facility] by Dr. Wolfe. Patient was awaiting a bed assignment for transfer to be completed. Blood cultures positive for E. coli, patient provided coverage with continued use of IV antibiotics: Zosyn. His hemoglobin acutely dropped on the morning of 09/27 from 9.5-6.7. This was confirmed on repeat blood draw. He was taken down for emergent CT abdomen and pelvis which showed splenic rupture with possible hemorrhage into the pelvis. Surgery was contacted and the patient emergently went to the OR. 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 2 ANDREA drains were placed. Patient return to the ICU intubated and was successfully extubated on 09/29 and did have some confusion. This continued to worsen. He did not passes swallow evaluation initially. He then had some w orsening of his respiratory status requiring BiPAP therapy. He had possible seizure activity noted, neuro consulted and EEG noted swelling but no epileptiform activity. Neurology has recommended continued Keppra and outpatient prolonged EEG, unable to obtain MRI secondary to restlessness. Repeat head CT with no acute process. He underwent a CT abdomen and pelvis on 10/05 due to low HgB that showed moderate bilateral pleural effusions and groundglass opacities in the lungs, surgical drainage tubes, and a small amount of peritoneal fluid. Again he demonstrated cholelithiasis and a nodular ap pearance to the liver. He continued to struggle with confusion. He passed a swallow on 10/08. Patient seen and examined at bedside. More awake but still confused today, no pain, no difficulty breathing, no nausea, encouraged oral intake. General: Ill appearing, no distress, appears younger than stated age Derm: warm, dry Head: atraumatic, normocephalic, symmetric Eyes: Pupils equal round reactive to light, no lid lag, anicteric sclera Mouth: no lip lesion, mucus membranes moist Cardiovascular: S1S2 reg with grade 2 systolic ejection murmur, positive posterior tibial pulse bilateral, Lungs: Decreasing bilateral, no rhonchi, no rales , no accessory muscle use, on vent Abdominal: soft, nondistended, non tender to palpation, no appreciable organomegaly, dressing over midline incision, Ext: no gross muscle atrophy, no edema, no contractures Neuro: Moving all 4 extremities independently, no focal neuro deficits noted. Psych: awake by confused Acute ascending cholangitis with E. coli bacteremia acute respiratory failure secondary to aspiration pneumonia, probable gram-negat monique Toxic metabolic encephalopathy -Outpatient MRCP revealed choledocholithiasis with possible obstructive jaundice pattern. -Patient was taken for ERCP on 09/25/[address] Huang, however it was reported that scope could not be advanced. D/W Dr. Yuen and will manage gallbladder as an outpatient at this time, no need for transfer. -Plans will be for outpatient laparoscopic cholecystectomy once acute illness improved. -Repeat blood cultures are negative to date -Zosyn, ID recs -Wean O2 as able -Pulmonary recommendations -Pulmonary hygiene, bronchodilators Splenic rupture with acute blood loss anemia, thrombocytopenia, hypovolemic shock, resolved - s/p 4 units of pRBC and 1 unit of plt - surgery recs -Plan will be for immunization prior to discharge from hospital for day 14 (10/12/20) whichever comes first. Patient will need strep pneumonia vaccine, meningitis, and Haemophilus influenza B prior to discharge. Hyperchloremic metabolic acidosis -Secondary to decreased free water intake and fluids with chloride amount - off fluids - encourage oral intake -Repeat labs in a.m. Possible seizure versus myoclonic jerking -Neurology recommendations appreciated -Continue with Keppra now decreased dosing, if continues to improve likely off in 1 week -Outpatient prolonged EEG to determine if antiepileptic medication will continue to be needed Hypertension -With recent hypotension -metoprolol -hold lisinopril -Follow blood pressures Dysphagia - passed swallow on 10/08, still low intake - supplements - dietitian recs Hypernatremia, resolved Acute kidney injury, resolved DVT prophylaxis: SCDs Discussed with: nursing Anticipated discharge: undetermined Anticipated discharge place: undetermined A total of 36 minutes was spent on the care of this complex patient more than 50% of the time was spent in counseling and care coordination. Objective - Vital Signs Vital signs: Vital Signs Temp 97.3 F L 10/09/20 08:00 Pulse 73 10/09/20 10:00 Resp 19 10/09/20 10:00 BP 144/68 10/09/20 10:00 Pulse Ox 99 10/09/20 10:00 Intake & Output 10/08/20 10/09/20 10/09/20 18:59 06:59 18:59 Intake Total 950 360 240 Output Total 1605 840 330 Balance -655 -480 -90 Weight 63.7 kg 58.4 kg Intake: IV 500 360 240 0.9 Sodium Chloride 60 260 40 Dextrose 5% in Water 1, 240 000 ml @ 40 mls/hr IV . Q24H [facility] with Sodium Bicarb (1 Meq/ml) 150 ml Rx#:[id number] Magnesium Sulfate-D5w Pmx 100 1 gm In Dextrose/Water 1 100ml.bag @ 100 mls/hr IVPB Q1H [facility] Rx#: [id number] Piperacillin-Tazobactam 3 100 100 .375 gm In Dextrose 5% in Water 100 ml @ 25 mls/hr IVPB Q8HR [facility] Rx#: [id number] Potassium Chloride 10 meq 100 In Water For Injection 1 100ml.bag @ 100 mls/hr IVPB Q1H [facility] Rx#: [id number] levETIRAcetam IV 500 mg 100 In Sodium Chloride 0.9% 100 ml @ 400 mls/hr IVPB Q12H [facility] Rx#:[id number] Oral 450 Output: Drainage 190 120 80 Left Abdomen 40 Right Abdomen 190 80 80 Urine 1415 720 250 Other: Voiding Method Indwelling Catheter Indwelling Catheter # Voids 0 60 # Bowel Movements 1 ABP, PAP, CO, CI - Last Documented Arterial Blood Pressure 126/118 - Labs CBC & Chem 7: 10/09/20 04:15 10/09/20 04:15 Labs: Abnormal Lab Results - Last 24 Hours (Table) 10/09/20 10/09/20 Range/Units 04:15 04:15 RBC 3.04 L (4.30-5.90) m/uL Hgb 9.3 L (13.0-17.5) gm/dL Hct 27.9 L (39.0-53.0) % RDW 17.7 H (11.5-15.5) % Chloride 115 H (98-107) mmol/L Carbon Dioxide 21 L (22-30) mmol/L BUN 33 H (9-20) mg/dL Calcium 8.0 L (8.4-10.2) mg/dL
--- NOTE | 2020-10-09 11:27 | P.PN ---
Subjective Progress Note Date: 10/09/20 CHIEF COMPLAINT: Right upper quadrant abdominal pain HISTORY OF PRESENT ILLNESS: Patient admitted to the hospital for ascending cholangitis. He was in transition for transfer to [facility] for def initive ERCP for common bile duct obstruction when he developed acute blood loss anemia and CT findings of ruptured spleen. 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 Patient is currently in the ICU. He is sitting up in the bedside chair. He has a sitter at bedside. He is resting comfortably. He was able to eat a small amount of his dysphagia d iet. Patient has been having bowel movements. No nausea or vomiting reported. Pain is controlled. ANDREA drains with ascites fluid noted. Apparently patient is having difficulty sleeping and episodes of confusion. He is being started on Seroquel. Afebrile. WBC 9.7 hemoglobin 9.3 iron level XXXV PHYSICAL EXAM: VITAL SIGNS: Reviewed. GENERAL: Well-developed in no acute distress. HEENT: No sclera icterus. Extraocular movements grossly intact. Moist buccal mucosa. Head is atraumatic, normocephalic. ABDOMEN: Soft. 2 ANDREA drains with ascites fluid output NEUROLOGIC: Sleeping ASSESSMENT: 1. Acute splenic rupture of unclear etiology. Status post Exploratory laparotomy with extensive lysis of adhesions, open splenectomy and evacuation of hemoperitoneum 2. Acute blood loss anemia due to splenic rupture 3. Ascending cholangitis with bacteremia 4. Symptomatic gallstone 5. Thrombocytopenia 6. Possible seizure 7. Acute kidney injury 8. Dysphagia 9. Aspiration pneumonia 10. Bilateral pleural effusions 11. Hard of hearing PLAN: -Okay to transfer out of ICU from surgical standpoint -Continue supportive care -We'll give 1 dose of IV iron for iron deficiency anemia and low iron level -Will need immunizations for post-splenectomy management in 10 to 14 days, otherwise, 10/07/20 to 10/12/20. -Cholecystectomy deferred -Encourage incentive spirometry use -Continue antibiotics per ID -Continue dysphagia chopped diet [employer] Director note has been reviewed by physician. Signing provider agrees with the documented findings, assessment, and plan of care. Objective - Vital Signs Vital signs: Vital Signs Temp 97.3 F L 10/09/20 08:00 Pulse 91 10/09/20 11:00 Resp 27 H 10/09/20 11:00 BP 129/59 10/09/20 11:00 Pulse Ox 99 10/09/20 11:00 Intake & Output 10/08/20 10/09/20 10/09/20 18:59 06:59 18:59 Intake Total 950 360 250 Output Total 1605 840 460 Balance -655 -480 -210 Weight 63.7 kg 58.4 kg Intake: IV 500 360 250 0.9 Sodium Chloride 60 260 50 Dextrose 5% in Water 1, 240 000 ml @ 40 mls/hr IV . Q24H [facility] with Sodium Bicarb (1 Meq/ml) 150 ml Rx#:[id number] Magnesium Sulfate-D5w Pmx 100 1 gm In Dextrose/Water 1 100ml.bag @ 100 mls/hr IVPB Q1H [facility] Rx#: [id number] Piperacillin-Tazobactam 3 100 100 .375 gm In Dextrose 5% in Water 100 ml @ 25 mls/hr IVPB Q8HR [facility] Rx#: [id number] Potassium Chloride 10 meq 100 In Water For Injection 1 100ml.bag @ 100 mls/hr IVPB Q1H [facility] Rx#: [id number] levETIRAcetam IV 500 mg 100 In Sodium Chloride 0.9% 100 ml @ 400 mls/hr IVPB Q12H [facility] Rx#:[id number] Oral 450 Output: Drainage 190 120 160 Left Abdomen 40 Right Abdomen 190 80 160 Urine 1415 720 300 Other: Voiding Method Indwelling Catheter Indwelling Catheter Indwelling Catheter # Voids 0 60 # Bowel Movements 1 ABP, PAP, CO, CI - Last Documented Arterial Blood Pressure 126/118 - Labs CBC & Chem 7: 10/09/20 04:15 10/09/20 04:15 Labs: Abnormal Lab Results - Last 24 Hours (Table) 10/09/20 10/09/20 Range/Units 04:15 04:15 RBC 3.04 L (4.30-5.90) m/uL Hgb 9.3 L (13.0-17.5) gm/dL Hct 27.9 L (39.0-53.0) % RDW 17.7 H (11.5-15.5) % Chloride 115 H (98-107) mmol/L Carbon Dioxide 21 L (22-30) mmol/L BUN 33 H (9-20) mg/dL Calcium 8.0 L (8.4-10.2) mg/dL
[2020-10-09] MEDS ORDERED: SODIUM FERRIC GLUCONAT-SUCROSE 125 MG in SODIUM CHLORIDE 0.9% 100 ML IVPB ONE (12:00)
[2020-10-09] MEDS: METOPROLOL TARTRATE 12.5 MG TAB PO SCH ×2 (12:39→20:33)
[2020-10-09] MEDS: NICOTINE 21MG/24HR PATCH TRANSDERM SCH (16:29)
--- NOTE | 2020-10-09 17:37 | PN ---
PROGRESS NOTE DATE OF SERVICE: 10/09/2020 REASON FOR FOLLOWUP: E. coli bacteremia and pneumonia. INTERVAL HISTORY: Patient is afebrile. The patient is more awake, alert. The patient is currently on nasal cannula oxygen. Denies any chest pain. Did have a cough, not bringing any sputum. No vomiting or diarrhea has been reported. PHYSICAL EXAMINATION: Blood pressure 135/68, pulse of 77, temperature 98.1. He is 100% on 30% FiO2. General description is an elderly male up in the chair in no distress. Respiratory system: Unlabored breathing, decreased intensity of breath sounds. No wheeze. Heart: S1, S2. Regular rate and rhythm. Abdomen: Soft, no tenderness. LABS: Hemoglobin 9.9, white count of ( ), BUN of 33, creatinine 1.25. DIAGNOSTIC IMPRESSION AND PLAN: ( ) so far negative. Patient admitted to the hospital with splenic rupture status post splenectomy with concern for cholangitis, E coli bacteremia, subsequently did have an episode of aspiration pneumonia. The patient did well on the Zosyn, to continue, while monitoring clinical course closely. Continue supportive care. MMODL / IJN: [id number] /
[2020-10-09] MEDS ORDERED: QUEtiapine 50 MG TAB PO STA (21:55)
[2020-10-10] MEDS: DEXTROSE 5% IVPB SCH ×6 (00:25→17:29)
[2020-10-10] MEDS: WATER IVPB SCH ×6 (00:25→17:29)
[2020-10-10] MEDS: PIPERACILLIN TAZOBACTAM IVPB SCH ×6 (00:25→17:29)
[2020-10-10] MEDS: methylPREDNISolone SOD SUCCI 40 MG/ML 1 ML VIAL IV SCH ×3 (00:25→20:51)
[2020-10-10 05:16] LABS: Anisocytosis Slight; HCT 26.7 % (39.0-53.0); HGB 8.9 gm/dL (13.0-17.5); Hypochromasia Slight; MCH 30.9 pg (25.0-35.0); MCHC 33.5 g/dL (31.0-37.0); MCV 92.2 fL (80.0-100.0); Platelet Count 243 k/uL (150-450); Poikilocytosis Slight; RDW 17.9 % (11.5-15.5)
[2020-10-10 05:30] LABS: Calcium 7.9 mg/dL (8.4-10.2); Magnesium 2.2 mg/dL (1.6-2.3); Phosphorus 3.5 mg/dL (2.5-4.5); Potassium 3.5 mmol/L (3.5-5.1)
[2020-10-10] MEDS: POTASSIUM CHLORIDE ER 20 MEQ TAB.ER PO SCH ×2 (06:41→08:27)
[2020-10-10] MEDS: FORMOTEROL FUMARATE 20 MCG/2 ML NEBU INHALATION SCH ×2 (07:35→20:07)
[2020-10-10] MEDS: IPRATROPIUM-ALBUTEROL 3 ML NEB INHALATION SCH ×4 (07:35→20:07)
[2020-10-10] MEDS: BUDESONIDE 1 MG/2 ML NEBU INHALATION SCH ×2 (07:35→20:07)
[2020-10-10] MEDS: ENOXAPARIN 30 MG/0.3 ML SYRINGE SQ SCH (08:23)
[2020-10-10] MEDS: METOPROLOL TARTRATE 12.5 MG TAB PO SCH ×2 (08:23→20:51)
[2020-10-10] MEDS: NICOTINE 21MG/24HR PATCH TRANSDERM SCH (08:23)
[2020-10-10] MEDS: FAMOTIDINE 20 MG TAB PO SCH (08:23)
[2020-10-10] MEDS: levETIRAcetam 250 MG TAB PO SCH (08:23)
[2020-10-10] MEDS ORDERED: FUROSEMIDE 10 MG/ML 2 ML VIAL IV ONE (10:00)
--- NOTE | 2020-10-10 10:02 | P.PN ---
Subjective Progress Note Date: 10/10/20 This is an 85-year-old white male with 1 day history of right upper quadrant pain, presented initially to the hospital on 09/24/2020, patient was diagnosed as having choledocholithiasis and ascending cholangitis. Patient was seen by gastroenterology on consultation, and he underwent attempted ERCP, however the ERCP was difficult, and could not be diagnostic or therapeutic. This was done on 09/25, and according to the note by the document management specialist multiple attempts were made to advance the scope into the duodenum and visualizing the ampullary orifice was not successful. Hence ERCP was not performed. The document management specialist recommended referral to [facility] for ERCP. Surgery was consulted on the patient on 09/25/2020, and the patient was seen by Dr. Fried. He recommended laparoscopic cholecystectomy and this was supposed to be scheduled on 09/29/2020. In the meantime the patient was found to have E. coli bacteremia and he was on antibiotics all along. On 09/27/2020, patient was noted to have significant blood loss anemia, CT of the abdomen and pelvis showed splenic fracture. Hence Dr. Turcios saw the patient on consultation, and the patient underwent emergency exploratory laparotomy, extensive lysis of adhesions, open splenectomy with control of bleeding, evacuation of hemoperitoneum, application of a wound VAC system, placement of a ANDREA drain in the left splenic fossa and right at pelvis. Due to the emergency situation, open cholecystectomy was not performed, patient was transfused, required a total of 3 units of packed RBCs The patient is postop day #8. The patient was extubated off the mechanical ventilator on 09/29/2020 and the patient has required BiPAP postextubation currently the patient is on high flow oxygen 10 L per minute nasal cannula. There is a concern for an an aspiration of the right upper lobe. Noted the patient was requiring also BiPAP for respiratory support in the BiPAP was utilized pressure of 12/5 cm of water and FiO2 of 50% alternating with high flow oxygen. The patient is currently bacteremic secondary to a component of as cending cholangitis and the patient is currently on IV Zosyn. The patient also developed an acute kidney injury secondary to ATN. On yesterday's evaluation hemoglobin was at 6.8 and the patient received a unit of packed RBC. The CAT scan of the abdomen was also done showing postsplenectomy changes, moderate bilateral pleural effusion increased in size, round vasopressin the lungs could be related to interstitial edema, moderate appearance of the liver, cholelithiasis, colonic diverticulosis, perinephric stranding. The patient has not passed any bowel movements. No abdominal pain. The patient remains nothing by mouth. She hasn't been able to perform a modified barium swallow as the pat ient was quite BiPAP dependent earlier last week. Her white cell count was improving. A from today still showing upper lobe bilateral pulmonary infiltrates right more than left. Lower lungs are essentially more preserved. The patient is currently on oxygen at 8 L per minute nasal cannula. Blood work from today shows a white cell count of 12 with a hemoglobin of 9.9 which is stable compared to yesterday. The serum bicarb is at 19 with a mean of 38 and a creatinine of 1.1. No signs of any GI bleed. The patient remains nothing by mouth. The patient remains quite lethargic and somnolent, responsive to pain only, not to verbal and not following any commands. His breathing is more labored on today's evaluation and he has a deep congested cough, unable to bring up much sputum. His aspiration is in the mid 30s. Abdominal wound is dry clean and intact. ANDREA drains are in place. Output at 20-40cc/hr 10/07/2020, I see the patient is awake and alert and much more interactive compared to yesterday. We took him off Ativan yesterday and the patient's mental status gradually improved during the day and overnight he was on a BiPAP and this morning he was taken off the BiPAP and is fully interactive and communicating and moving all 4 extremities without any limitation. He is answer ing all questions. He remains slightly lethargic and slightly tachypneic. He was taken off the BiPAP and he was placed on 4 L of oxygen by nasal cannula and the patient's chest x-ray still showing diffuse bilaterally pulmonary infiltrates with upper lobe predominance consider aspiration pneumonia and he remains on IV Zosyn. The PICC line was pulled out accidentally by the patient and is currently off TPN. A swallow evaluation is to follow today. He did have a bowel movement. Surgical site over the abdomen is dry clean and intact. No abdominal distention. ANDREA drain is in place and output is 20cc/hr total amount of output from the ANDREA has been 1 95 mL from the one on the right and 20 mL from the 1 on the left ovary 12-hour period. The patient continues to have a component of non-anion gap metabolic acidosis. He'll be started on bicarb infusion to replace the bicarb deficits. The white cell count is at 10.4 with a hemoglobin of 8.6. No evidence of any GI bleed. No evidence of any blood loss intra-abdominal he. No abdominal distention. No other significant events overnight. Quite impressed by the mental status improvement since yesterday. 10/08/2020, the patient is looking well. He is awake and alert and communicating. He is hard of hearing as such is difficult to communicate with him. Nevertheless, he answers the questions appropriately. Currently is on 5 L by nasal cannula. He did not use the BiPAP no all night. Repeat chest x-ray from today shows improvement in the bilateral pulmonary infiltrates. He did have aspiration pneumonia and also considering the possibility of interstitial edema as the patient responded very nicely to that so that was given yesterday and those of 40 mg IV and following that he diuresed approximately 1 L. I'm going to repeat another dose of Lasix. An outpatient modified barium swallow will be done today. He is not receiving any form of nutrition. He is stooling. Abdomen is soft. Bowel sounds. ANDREA drains are still in place and output is minimal at this point declining. The right ANDREA drain has drained approximately 10 mL and the same as for the left ANDREA drain. Urine output is in order of 40-60 mL an hour. His blood work essentially stable , with a hemoglobin of 8.6 is essentially unchanged with a hemoglobin of 8.6, white cell count of 10.7, his BUN is at 33 with a creatinine of 1.2. Serum bicarb is up to 21. LFTs are normal and the serum albumin is down to 2.1. Ammonia level less than 9. 10/09/2020, patient is being seen for a follow-up. The patient is confused this morning. He is pleasantly confused. He is not agitated. He is not oriented to place and time. He is not oriented to people. His neurologic exam is nonfocal. He is obviously delirious. He remains on oxygen at 4 L per minute nasal cannula. Chest x-ray showing some limited improvement in infiltrates bilaterally. There is better visualization of the right hemidiaphragm. Noted the patient was given a dose of Lasix yesterday 40 mg IV push and his fluid balance has been essentially negativeAnd the patient has been negative fluid balance of 1.1 m at least for the past 24 hours. He is remaining on IV Zosyn. He is afebrile. ANDREA drain has put out approximately 1 20 mL on the right and 70 mL on the left. He passed a swallow evaluation. He is taken some limited dysphagia diet. Otherwise, his white cell count is at 9.7 with a hemoglobin of 9.3. BNP is at 33 with a creatinine of 1.25. Magnesium is at 1.9. IV fluids a re currently at KVO at 20 mL an hour. He is still on Keppra. This will be weaned off and discontinued per neurology. 10/10/2020, the patient is less confused compared to yesterday. He is calm and quiet. No agitation. He was given a dose of cerebral 50 mg overnight. He is tolerating his diet. He is eating properly. Abdominal wound is dry clean and intact. ANDREA drain is draining approximately 90 mL on the right and 30 seconds on the left and this is a 24 hour drainage. He is also stooling. No nausea. No vomiting. No abdominal pain. No fever. He was given a dose of Lasix yesterday 40 mg IV push and he diuresed adequately in the order of 1.1 L initially and later on 2.3 L fluid balance negative over the past 24 hours. As such, his fluid status is further optimized. His IV fluids are currently running at KVO. No seizure activity. He remains on IV Zosyn. He is afebrile. A follow-up chest x-ray needs to be done knowing that the chest x-ray was not repeated since 10/08/2020. Objective - Vital Signs Vital signs: Vital Signs Temp 97.2 F L 10/10/20 08:00 Pulse 108 H 10/10/20 09:00 Resp 30 H 10/10/20 09:00 BP 156/65 10/10/20 09:00 Pulse Ox 96 10/10/20 09:00 Intake & Output 10/09/20 10/10/20 10/10/20 18:59 06:59 18:59 Intake Total 520 220 130 Output Total 2190 946 117 Balance -0780 -726 13 Weight 61.6 kg Intake: IV 520 220 130 0.9 Sodium Chloride 120 120 30 Magnesium Sulfate-D5w Pmx 100 1 gm In Dextrose/Water 1 100ml.bag @ 100 mls/hr IVPB Q1H [facility] Rx#: [id number] Piperacillin-Tazobactam 3 100 100 100 .375 gm In Dextrose 5% in Water 100 ml @ 25 mls/hr IVPB Q8HR [facility] Rx#: [id number] Potassium Chloride 10 meq 100 In Water For Injection 1 100ml.bag @ 100 mls/hr IVPB Q1H [facility] Rx#: [id number] Sodium Ferric Gluconat- 100 Sucrose 125 mg In Sodium Chloride 0.9% 100 ml @ 100 mls/hr IVPB ONCE ONE Rx#:[id number] Output: Drainage 250 141 Left Abdomen 20 31 Right Abdomen 230 110 Urine 1940 805 117 Other: Voiding Method Indwelling Catheter Indwelling Catheter ABP, PAP, CO, CI - Last Documented Arterial Blood Pressure 126/118 - Exam GENERAL EXAM: 85-year-old white male , breathing comfortably. No signs of any respiratory distress. He is confused. He is quite pleasant. No agitation. No restlessness. There is some mild component of delirium still. Is currently on oxygen at 2 L HEAD: Normocephalic/atraumatic. EYES: Normal reaction of pupils, equal size. Conjunctiva pink, sclera white. NOSE: Clear with pink turbinates. THROAT: No erythema or exudates. NECK: No masses, no JVD, no thyroid enlargement, no adenopathy. CHEST: No chest wall deformity. Symmetrical expansion. LUNGS: Equal air entry with no crackles, wheeze, rhonchi or dullness. On examination, he is also showing some signs of bronchospasm and wheezing. CVS: Regular rate and rhythm, normal S1 and S2, no gallops, no murmurs, no rubs ABDOMEN: Soft, mildly tender post surgery. No hepatosplenomegaly, normal bowel sounds, no guarding or rigidity. Midabdominal incision is clean dry and intact ANDREA drain output is serosanguineous, 30 mL from the left and 90 from right EXTREMITIES: No clubbing, no edema, no cyanosis, 2+ pulses and upper and lower extremities. MUSCULOSKELETAL: Muscle strength and tone normal. SPINE: No scoliosis or deformity SKIN: No rashes CENTRAL NERVOUS SYSTEM: No focal neurological deficit, continues to be delirious - Labs CBC & Chem 7: 10/10/20 04:02 10/10/20 04:02 Labs: Abnormal Lab Results - Last 24 Hours (Table) 10/10/20 10/10/20 Range/Units 04:02 04:02 RBC 2.90 L (4.30-5.90) m/uL Hgb 8.9 L (13.0-17.5) gm/dL Hct 26.7 L (39.0-53.0) % RDW 17.9 H (11.5-15.5) % Chloride 112 H (98-107) mmol/L BUN 33 H (9-20) mg/dL Creatinine 1.30 H (0.66-1.25) mg/dL Glucose 102 H (74-99) mg/dL Calcium 7.9 L (8.4-10.2) mg/dL Assessment and Plan Plan: #1. Acute splenic rupture following ERCP, status post exploratory laparotomy, splenectomy and lysis of adhesions on 09/27/2020, postoperative day #11 #2. Postoperative routine mechanical ventilator management, with successful extubation on September 29, requiring BiPAP support after extubation, currently on high flow nasal cannula at 2 L This is likely an aspiration pneumonia. He remains on IV Zosyn. CXr stable pending #3. Aspiration pneumonia involving the right upper lobe in the left upper lobe #4. Questionable syncope/seizure #5. E. coli bacteremia secondary to acute ascending cholangitis currently on Zosyn #6. Anemia of chronic disease, multifactorial, given a dose of iron yesterday and the patient's hemoglobin today is at 8.9 #7. Acute kidney injury secondary to ATN, improved #8. Postoperative bilateral pleural effusions secondary to aggressive fluid resuscitation and transfusion of blood products #9. History of hyperlipidemia #10. History of gout #11. History of hypertension #12 chronic diverticulosis #13 altered mentation, CAT scan of the brain is negative , there is ongoing delirium for now. Given Cervidil overnight. #14 difficulty in swallowing and the patient is going to undergo a barium swallow today. #15 Delerium plan The remainder FiO2 down to 2 L Given another dose of Lasix 20 mg IV push x1 we'll start the patient on Seroquel 50mg qhs. Continue IV Zosyn Continue bronchodilators Continue steroids as the patient continues to bronchus spastic and wheezy Monitor ANDREA drain Discontinue Keppra Wound is dry clean and intact Restart the patient on Lovenox 30 mg subcu for DVT prophylaxis Continue with Diet Keep in the MICU
--- NOTE | 2020-10-10 10:59 | XR ---
EXAMINATION TYPE: XR chest 1V portable DATE OF EXAM: 10/10/2020 Comparison: 10/08/2020 Clinical History: 85-year-old male Pneumonia Findings: The heart is normal size. Atherosclerotic arch calcifications. Continued right upper lobe opacity. Sl ight increased right basilar opacity. Continued patchy retrocardiac and left basilar opacity. Impression: Multifocal airspace disease persists, slightly increased now at the right base. Consider multifocal p neumonia.
--- NOTE | 2020-10-10 11:55 | P.PN ---
Subjective Progress Note Date: 10/10/20 CHIEF COMPLAINT: Right upper quadrant abdominal pain HISTORY OF PRESENT ILLNESS: Patient admitted to the hospital for ascending cholangitis. He was in transition for transfer to [facility] for def initive ERCP for common bile duct obstruction when he developed acute blood loss anemia and CT findings of ruptured spleen. 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 Patient is currently in the ICU. Patient sitting up in bed. He reports no abdominal pain. Denies any nausea or vomiting. He is tolerating diet. He is stooling. Afebrile. WBC 7 hemoglobin 8.9 platelets 243 creatinine 1.30 patient did receive a dose of IV Lasix yesterday and today. He also received a dose of IV iron PHYSICAL EXAM: VITAL SIGNS: Reviewed. GENERAL: Well-developed in no acute distress. HEENT: No sclera icterus. Extraocular movements grossly intact. Moist buccal mucosa. Head is atraumatic, normocephalic. ABDOMEN: Soft. Nondistended dressing clean dry and intact. Abdominal binder in place. 2 ANDREA drains with ascites fluid output. NEUROLOGIC: Awake and answering questions ASSESSMENT: 1. Acute splenic rupture of unclear etiology. Status post Exploratory laparotomy with extensive lysis of adhesions, open splenectomy and evacuation of hemoperitoneum 2. Acute blood loss anemia due to splenic rupture 3. Ascending cholangitis with bacteremia 4. Symptomatic gallstone 5. Thrombocytopenia 6. Possible seizure 7. Acute kidney injury 8. Dysphagia 9. Aspiration pneumonia 10. Bilateral pleural effusions 11. Hard of hearing 12. Iron deficiency anemia PLAN: -Continue ICU management -Continue supportive care -Will need immunizations for post-splenectomy management in 10 to 14 days, otherwise, 10/07/20 to 10/12/20. -Cholecystectomy deferred -Encourage incentive spirometry use -Continue antibiotics per ID -Continue dysphagia chopped diet Physician Product Blending Supervisor note has been reviewed by physician. Signing provider agrees with the documented findings, assessment, and plan of care. Objective - Vital Signs Vital signs: Vital Signs Temp 97.2 F L 10/10/20 08:00 Pulse 82 10/10/20 11:00 Resp 27 H 10/10/20 11:00 BP 127/57 10/10/20 11:00 Pulse Ox 97 10/10/20 11:00 Intake & Output 10/09/20 10/10/20 10/10/20 18:59 06:59 18:59 Intake Total 520 220 150 Output Total 2190 946 177 Balance -1670 -726 -27 Weight 61.6 kg 61.6 kg Intake: IV 520 220 150 0.9 Sodium Chloride 120 120 50 Magnesium Sulfate-D5w Pmx 100 1 gm In Dextrose/Water 1 100ml.bag @ 100 mls/hr IVPB Q1H [facility] Rx#: [id number] Piperacillin-Tazobactam 3 100 100 100 .375 gm In Dextrose 5% in Water 100 ml @ 25 mls/hr IVPB Q8HR [facility] Rx#: [id number] Potassium Chloride 10 meq 100 In Water For Injection 1 100ml.bag @ 100 mls/hr IVPB Q1H [facility] Rx#: [id number] Sodium Ferric Gluconat- 100 Sucrose 125 mg In Sodium Chloride 0.9% 100 ml @ 100 mls/hr IVPB ONCE ONE Rx#:[id number] Output: Drainage 250 141 Left Abdomen 20 31 Right Abdomen 230 110 Urine 1940 805 177 Other: Voiding Method Indwelling Catheter Indwelling Catheter ABP, PAP, CO, CI - Last Documented Arterial Blood Pressure 126/118 - Labs CBC & Chem 7: 10/10/20 04:02 10/10/20 04:02 Labs: Abnormal Lab Results - Last 24 Hours (Table) 10/10/20 10/10/20 Range/Units 04:02 04:02 RBC 2.90 L (4.30-5.90) m/uL Hgb 8.9 L (13.0-17.5) gm/dL Hct 26.7 L (39.0-53.0) % RDW 17.9 H (11.5-15.5) % Chloride 112 H (98-107) mmol/L BUN 33 H (9-20) mg/dL Creatinine 1.30 H (0.66-1.25) mg/dL Glucose 102 H (74-99) mg/dL Calcium 7.9 L (8.4-10.2) mg/dL
--- NOTE | 2020-10-10 14:32 | P.PN ---
Subjective Progress Note Date: 10/10/20 (delayed charting seen at 1130) Principal diagnosis: abdominal pain Patient is an 85-year-old male with a past medical history of hypertension and peripheral arterial disease. He had been found to have elevated liver enzymes and has been being worked up as an outpatient basis. Patient had a liver ultrasound and MRCP which suggested cholestasis with multiple gallstones. Patient presented to the emergency department on 09/24/20 with a chief complaint of right upper quadrant abdominal pain 1 day associated with nausea, vomiting, and diarrhea. Patient admitted under our services for acute ascending cholangitis with transaminitis and HERMELINDO. Abdominal ultrasound completed revealing numerous gallstones. Patient was under leukocytosis with a WBC count of 17.1, anemia with hemoglobin of 10.8, and thrombocytopenia with platelet count of 104,000. Acute kidney injury with BUN of 38, creatinine 1.63, and GFR of 38 with baseline hemoglobin of 1.2. Patient was taken for ERCP on 09/[address] 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 Call was made to transfer center and patient was accepted for transfer at [facility] by Dr. Wolfe. Patient was awaiting a bed assignment for transfer to be completed. Blood cultures positive for E. coli, patient provided coverage with continued use of IV antibiotics: Zosyn. His hemoglobin acutely dropped on the morning of 09/27 from 9.5-6.7. This was confirmed on repeat blood draw. He was taken down for emergent CT abdomen and pelvis which showed splenic rupture with possible hemorrhage into the pelvis. Surgery was contacted and the patient emergently went to the OR. 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 2 ANDREA drains were placed. Patient return to the ICU intubated and was successfully extubated on 09/29 and did have some confusion. This continued to worsen. He did not passes swallow evaluation initially. He then had some worsening of his respiratory status requiring BiPAP therapy. He had possible seizure activity noted, neuro consulted and EEG noted swelling but no epileptiform activity. Neurology has recommended continued Keppra and outpatient prolonged EEG, unable to obtain MRI secondary to restlessness. Repeat head CT with no acute process. He underwent a CT abdomen and pelvis on 10/05 due to low HgB that showed moderate bilateral pleural effusions and groundglass opacities in the lungs, surgical drainage tubes, and a small amount of peritoneal fluid. Again he demonstrated cholelithiasis and a nodular appearance to the liver. He continued to struggle with confusion. He passed a swallow on 10/08. Started on seroquel and improving. Patient seen and examined at bedside. more awake and less confused. No chest pain, no shortness of breath, no nausea, no vomiting. General: Ill appearing, no distress, appears younger than stated age Derm: warm, dry Head: atraumatic, normocephalic, symmetric Eyes:EOMI, no lid lag, anicteric sclera Mouth: no lip lesion, mucus membranes moist Cardiovascular: S1S2 reg with grade 2 systolic ejection murmur, positive posterior tibial pulse bilateral, Lungs: Decreasing bilateral, no rhonchi, no rales , no accessory muscle use, on vent Abdominal: soft, nondistended, non tender to palpation, no appreciable organomegaly, dressing over midline incision, Ext: no gross muscle atrophy, trace edema, no contractures Neuro: Moving all 4 extremities independently, no focal neuro deficits noted. Psych: awake alert to self and hospital Acute ascending cholangitis with E. coli bacteremia acute respiratory failure secondary to aspiration pneumonia, probable gram- negative Toxic metabolic encephalopathy -Outpatient MRCP revealed choledocholithiasis with possible obstructive jaundice pattern. -Patient was taken for ERCP on 09/25/[address] Huang, however it was reported that scope could not be advanced. D/W Dr. Yuen and will manage gallbladder as an outpatient at this time, no need for transfer. -Plans will be for outpatient laparoscopic cholecystectomy once acute illness improved. -Repeat blood cultures are negative to date -Zosyn, ID recs -Wean O2 as able -Pulmonary recommendations -Pulmonary hygiene, bronchodilators Splenic rupture with acute blood loss anemia, thrombocytopenia, hypovolemic shock, resolved - s/p 4 units of pRBC and 1 unit of plt - surgery recs -Plan will be for immunization on 10/12/20. Patient will need strep pneumonia vaccine, meningitis, and Haemophilus influenza B - pharmacy to provide teaching to family today Possible seizure versus myoclonic jerking -Neurology recommendations appreciated -keppra has been discontinued, continue to monitor Hypertension -With recent hypotension -metoprolol -resume lisinopril -Follow blood pressures Dysphagia - passed swallow on 10/08, still low intake - supplements - dietitian recs Hypernatremia, resolved Acute kidney injury, resolved Hyperchloremic metabolic acidosis, resolved DVT prophylaxis: SCDs Discussed with: nursingagustín Anticipated discharge: 4-[address]: home with home health A total of 36 minutes was spent on the care of this complex patient more than 50% of the time was spent in counseling and care coordination. Active Medications Acetaminophen (Acetaminophen Tab 325 Mg Tab) 650 mg PO Q6HR PRN PRN Reason: Fever and/ or Pain Albuterol/Ipratropium (Ipratropium-Albuterol 3 Ml Neb) 3 ml INHALATION RT-QID [facility] Last Admin: 10/10/20 11:26 Dose: Not Given Documented by: Albuterol/Ipratropium (Ipratropium-Albuterol 3 Ml Neb) 3 ml INHALATION RT-Q2H PRN PRN Reason: Shortness Of Breath Or Wheezing Budesonide (Budesonide 1 Mg/2 Ml Nebu) 1 mg INHALATION RT-BID [facility] Last Admin: 10/10/20 07:35 Dose: 1 mg Documented by: Enoxaparin Sodium (Enoxaparin 30 Mg/0.3 Ml Syringe) 30 mg SQ DAILY [facility] Last Admin: 10/10/20 08:23 Dose: 30 mg Documented by: Famotidine (Famotidine 20 Mg Tab) 40 mg PO DAILY [facility] Last Admin: 10/10/20 08:23 Dose: 40 mg Documented by: Formoterol Fumarate (Formoterol Fumarate 20 Mcg/2 Ml Nebu) 20 mcg INHALATION RT-BID [facility] Last Admin: 10/10/20 07:35 Dose: 20 mcg Documented by: Haemophilus b Polysacch Conj Vacc (Haemoph B Poly Conj-Tet Tox/Pf 10 Mcg/0.5 Ml Vial) 10 mcg IM .ONCE ONE Stop: 10/12/20 09:01 Piperacillin Sod/Tazobactam (Sod 3.375 gm/ Dextrose/Water) 100 mls @ 25 mls/hr IVPB Q8HR [facility] Last Admin: 10/10/20 08:22 Dose: 25 mls/hr Documented by: Meningococcal Polysaccharide Vacc (Mening Vac A,C,Y,W-135 Dip/Pf 4 Mcg/0.5 Ml Vial) 4 mcg IM .ONCE ONE Stop: 10/12/20 09:01 Methylprednisolone Sodium Succinate (Methylprednisolone Sod Succi 40 Mg/Ml 1 Ml Vial) 40 mg IV Q12HR [facility] Metoprolol Tartrate (Metoprolol Tartrate 12.5 Mg Tab) 12.5 mg PO BID [facility] Last Admin: 10/10/20 08:23 Dose: 12.5 mg Documented by: Miscellaneous Information (Potassium Replacement Protocol 1 Each Misc) 1 each MISCELLANE DAILY PRN; Protocol PRN Reason: Per Protocol Miscellaneous Information (Magnesium Replacement Protocol 1 Each Misc) 1 each MISCELLANE DAILY PRN; Protocol PRN Reason: Per Protocol Naloxone HCl (Naloxone 0.4 Mg/Ml 1 Ml Vial) 0.2 mg IV Q2M PRN PRN Reason: Opioid Reversal Nicotine (Nicotine 21mg/24hr Patch) 1 patch TRANSDERM DAILY [facility] Last Admin: 10/10/20 08:23 Dose: 1 patch Documented by: Non-Formulary Medication (Lisinopril [Lisinopril]) 40 mg PO DAILY [facility] Ondansetron HCl (Ondansetron 4 Mg/2 Ml Vial) 4 mg IVP Q8HR PRN PRN Reason: Nausea And Vomiting Pneumococcal Polyvalent Vaccine (Pneumococcal Vacc-Pneumovax 23 25 Mcg/0.5 Ml Vial) 25 mcg IM .ONCE ONE Stop: 10/12/20 09:01 Quetiapine Fumarate (Quetiapine 50 Mg Tab) 50 mg PO [facility] Objective - Vital Signs Vital signs: Vital Signs Temp 98.1 F 10/10/20 12:00 Pulse 72 10/10/20 14:00 Resp 29 H 10/10/20 14:00 BP 134/53 10/10/20 14:00 Pulse Ox 98 10/10/20 14:00 Intake & Output 10/09/20 10/10/20 10/10/20 18:59 06:59 18:59 Intake Total 520 220 170 Output Total 0520 946 617 [facility] -[phone] Weight 61.6 kg 61.6 kg Intake: IV 520 220 170 0.9 Sodium Chloride 120 120 70 Magnesium Sulfate-D5w Pmx 100 1 gm In Dextrose/Water 1 100ml.bag @ 100 mls/hr IVPB Q1H [facility] Rx#: [id number] Piperacillin-Tazobactam 3 100 100 100 .375 gm In Dextrose 5% in Water 100 ml @ 25 mls/hr IVPB Q8HR [facility] Rx#: [id number] Potassium Chloride 10 meq 100 In Water For Injection 1 100ml.bag @ 100 mls/hr IVPB Q1H [facility] Rx#: [id number] Sodium Ferric Gluconat- 100 Sucrose 125 mg In Sodium Chloride 0.9% 100 ml @ 100 mls/hr IVPB ONCE ONE Rx#:[id number] Output: Drainage 250 141 90 Left Abdomen 20 31 Right Abdomen 230 110 90 Urine 1940 805 527 Other: Voiding Method Indwelling Catheter Indwelling Catheter Indwelling Catheter ABP, PAP, CO, CI - Last Documented Arterial Blood Pressure 126/118 - Labs CBC & Chem 7: 10/10/20 04:02 10/10/20 04:02 Labs: Abnormal Lab Results - Last 24 Hours (Table) 10/10/20 10/10/20 Range/Units 04:02 04:02 RBC 2.90 L (4.30-5.90) m/uL Hgb 8.9 L (13.0-17.5) gm/dL Hct 26.7 L (39.0-53.0) % RDW 17.9 H (11.5-15.5) % Chloride 112 H (98-107) mmol/L BUN 33 H (9-20) mg/dL Creatinine 1.30 H (0.66-1.25) mg/dL Glucose 102 H (74-99) mg/dL Calcium 7.9 L (8.4-10.2) mg/dL
--- NOTE | 2020-10-10 16:29 | PN ---
PROGRESS NOTE REASON FOR FOLLOWUP: E. coli bacteremia and aspiration pneumonia. INTERVAL HISTORY: Patient is afebrile. The patient mentioned that she is more awake and alert. Patient is breathing comfortably. Denies any chest pain. Occasional cough. No abdominal pain. No diarrhea. PHYSICAL EXAMINATION: Blood pressure 134/53 with a pulse of 73, temperature 98.1. She is 98% on 2 L nasal cannula. General description is an elderly male in the chair in no distress. Respiratory system: Unlabored breathing, coarse breath sounds bilaterally. Heart S1, S2. Regular rate and rhythm. Abdomen soft, no tenderness. LABS: Hemoglobin 8.8, white count 10.0, BUN of 33, creatinine 1.30. DIAGNOSTIC IMPRESSION AND PLAN: 1. Patient with an E coli bacteremia concerning for cholangitis, this patient admitted to the hospital with a fall and did have a splenic rupture status post splenectomy. Patient due for his vaccination on October 12. We will discuss with the pharmacy . 2. Aspiration pneumonia, patient is covered with Zosyn that will be continued for now and monitor clinical course closely. MMODL / IJN: [id number] /
[2020-10-10] MEDS: QUEtiapine 50 MG TAB PO SCH (22:12)
[2020-10-11] MEDS: WATER IVPB SCH ×8 (00:58→23:15)
[2020-10-11] MEDS: DEXTROSE 5% IVPB SCH ×8 (00:58→23:15)
[2020-10-11] MEDS: PIPERACILLIN TAZOBACTAM IVPB SCH ×8 (00:58→23:15)
[2020-10-11] MEDS: ACETAMINOPHEN TAB 325 MG TAB PO PRN ×2 (01:27→08:27)
[2020-10-11] MEDS ORDERED: hydrALAZINE HCL 25 MG TAB PO STA (01:34)
[2020-10-11] MEDS: IPRATROPIUM-ALBUTEROL 3 ML NEB INHALATION SCH ×4 (08:23→20:22)
[2020-10-11] MEDS: BUDESONIDE 1 MG/2 ML NEBU INHALATION SCH ×2 (08:24→20:22)
[2020-10-11] MEDS: FORMOTEROL FUMARATE 20 MCG/2 ML NEBU INHALATION SCH ×2 (08:24→20:22)
[2020-10-11] MEDS: FAMOTIDINE 20 MG TAB PO SCH (08:27)
[2020-10-11] MEDS: lisinopriL 20 MG TAB PO SCH (08:27)
[2020-10-11] MEDS: NICOTINE 21MG/24HR PATCH TRANSDERM SCH (08:28)
[2020-10-11] MEDS: methylPREDNISolone SOD SUCCI 40 MG/ML 1 ML VIAL IV SCH ×2 (08:28→20:09)
[2020-10-11] MEDS: ENOXAPARIN 30 MG/0.3 ML SYRINGE SQ SCH (08:28)
[2020-10-11] MEDS: METOPROLOL TARTRATE 12.5 MG TAB PO SCH ×2 (08:28→20:09)
--- NOTE | 2020-10-11 10:43 | P.PN ---
Subjective Progress Note Date: 10/11/20 Principal diagnosis: Splenic injury Patient slightly confused this morning. He apparently did well with his diet this morning however. No labs from today. He is afebrile. Objective - Vital Signs Vital signs: Vital Signs Temp 97.6 F 10/11/20 07:00 Pulse 78 10/11/20 08:44 Resp 18 10/11/20 07:30 BP 175/65 10/11/20 07:00 Pulse Ox 92 L 10/11/20 07:00 Intake & Output 10/10/20 10/11/20 10/11/20 18:59 06:59 18:59 Intake Total 180 600 Output Total 667 630 100 Balance -487 -30 -100 Weight 61.6 kg 55.5 kg Intake: IV 180 200 0.9 Sodium Chloride 80 Piperacillin-Tazobactam 3 100 200 .375 gm In Dextrose 5% in Water 100 ml @ 25 mls/hr IVPB Q8HR [facility] Rx#: [id number] Oral 400 Output: Drainage 90 230 100 Left Abdomen 165 Right Abdomen 90 65 100 Urine 577 400 Uretheral ([place]) 400 Other: Voiding Method Indwelling Catheter Toilet Toilet ABP, PAP, CO, CI - Last Documented Arterial Blood Pressure 126/118 - Exam Abdomen: Soft, nondistended, dressing clean and dry, minimal tenderness, ANDREA serous - Labs CBC & Chem 7: 10/10/20 04:02 10/10/20 04:02 Assessment and Plan (1) Splenic laceration Narrative/Plan: Patient remains somewhat confused. Continue diet as tolerated. Continue increasing activity. Possible transfer to rehab soon. Current Visit: Yes Status: Acute Code(s): S36.039A - UNSPECIFIED LACERATION OF SPLEEN, INITIAL ENCOUNTER SNOMED Code(s): 833430713
--- NOTE | 2020-10-11 12:33 | P.PN ---
Subjective Progress Note Date: 10/11/20 This is an 85-year-old white male with 1 day history of right upper quadrant pain, presented initially to the hospital on 09/24/2020, patient was diagnosed as having choledocholithiasis and ascending cholangitis. Patient was seen by gastroenterology on consultation, and he underwent attempted ERCP, however the ERCP was difficult, and could not be diagnostic or therapeutic. This was done on 09/25, and according to the note by the customs compliance specialist multiple attempts were made to advance the scope into the duodenum and visualizing the ampullary orifice was not successful. Hence ERCP was not performed. The customs compliance specialist recommended referral to [facility] for ERCP. Surgery was consulted on the patient on 09/25/2020, and the patient was seen by Dr. Fried. He recommended laparoscopic cholecystectomy and this was supposed to be scheduled on 09/29/2020. In the meantime the patient was found to have E. coli bacteremia and he was on antibiotics all along. On 09/27/2020, patient was noted to have significant blood loss anemia, CT of the abdomen and pelvis showed splenic fracture. Hence Dr. Turcios saw the patient on consultation, and the patient underwent emergency exploratory laparotomy, extensive lysis of adhesions, open splenectomy with control of bleeding, evacuation of hemoperitoneum, application of a wound VAC system, placement of a ANDREA drain in the left splenic fossa and right at pelvis. Due to the emergency situation, open cholecystectomy was not performed, patient was transfused, required a total of 3 units of packed RBCs The patient is postop day #8. The patient was extubated off the mechanical ventilator on 09/29/2020 and the patient has required BiPAP postextubation currently the patient is on high flow oxygen 10 L per minute nasal cannula. There is a concern for an an aspiration of the right upper lobe. Noted the patient was requiring also BiPAP for respiratory support in the BiPAP was utilized pressure of 12/5 cm of water and FiO2 of 50% alternating with high flow oxygen. The patient is currently bacteremic secondary to a component of as cending cholangitis and the patient is currently on IV Zosyn. The patient also developed an acute kidney injury secondary to ATN. On yesterday's evaluation hemoglobin was at 6.8 and the patient received a unit of packed RBC. The CAT scan of the abdomen was also done showing postsplenectomy changes, moderate bilateral pleural effusion increased in size, round vasopressin the lungs could be related to interstitial edema, moderate appearance of the liver, cholelithiasis, colonic diverticulosis, perinephric stranding. The patient has not passed any bowel movements. No abdominal pain. The patient remains nothing by mouth. She hasn't been able to perform a modified barium swallow as the pat ient was quite BiPAP dependent earlier last week. Her white cell count was improving. A from today still showing upper lobe bilateral pulmonary infiltrates right more than left. Lower lungs are essentially more preserved. The patient is currently on oxygen at 8 L per minute nasal cannula. Blood work from today shows a white cell count of 12 with a hemoglobin of 9.9 which is stable compared to yesterday. The serum bicarb is at 19 with a mean of 38 and a creatinine of 1.1. No signs of any GI bleed. The patient remains nothing by mouth. The patient remains quite lethargic and somnolent, responsive to pain only, not to verbal and not following any commands. His breathing is more labored on today's evaluation and he has a deep congested cough, unable to bring up much sputum. His aspiration is in the mid 30s. Abdominal wound is dry clean and intact. ANDREA drains are in place. Output at 20-40cc/hr 10/07/2020, I see the patient is awake and alert and much more interactive compared to yesterday. We took him off Ativan yesterday and the patient's mental status gradually improved during the day and overnight he was on a BiPAP and this morning he was taken off the BiPAP and is fully interactive and communicating and moving all 4 extremities without any limitation. He is answer ing all questions. He remains slightly lethargic and slightly tachypneic. He was taken off the BiPAP and he was placed on 4 L of oxygen by nasal cannula and the patient's chest x-ray still showing diffuse bilaterally pulmonary infiltrates with upper lobe predominance consider aspiration pneumonia and he remains on IV Zosyn. The PICC line was pulled out accidentally by the patient and is currently off TPN. A swallow evaluation is to follow today. He did have a bowel movement. Surgical site over the abdomen is dry clean and intact. No abdominal distention. ANDREA drain is in place and output is 20cc/hr total amount of output from the ANDREA has been 1 95 mL from the one on the right and 20 mL from the 1 on the left ovary 12-hour period. The patient continues to have a component of non-anion gap metabolic acidosis. He'll be started on bicarb infusion to replace the bicarb deficits. The white cell count is at 10.4 with a hemoglobin of 8.6. No evidence of any GI bleed. No evidence of any blood loss intra-abdominal he. No abdominal distention. No other significant events overnight. Quite impressed by the mental status improvement since yesterday. 10/08/2020, the patient is looking well. He is awake and alert and communicating. He is hard of hearing as such is difficult to communicate with him. Nevertheless, he answers the questions appropriately. Currently is on 5 L by nasal cannula. He did not use the BiPAP no all night. Repeat chest x-ray from today shows improvement in the bilateral pulmonary infiltrates. He did have aspiration pneumonia and also considering the possibility of interstitial edema as the patient responded very nicely to that so that was given yesterday and those of 40 mg IV and following that he diuresed approximately 1 L. I'm going to repeat another dose of Lasix. An outpatient modified barium swallow will be done today. He is not receiving any form of nutrition. He is stooling. Abdomen is soft. Bowel sounds. ANDREA drains are still in place and output is minimal at this point declining. The right ANDREA drain has drained approximately 10 mL and the same as for the left ANDREA drain. Urine output is in order of 40-60 mL an hour. His blood work essentially stable , with a hemoglobin of 8.6 is essentially unchanged with a hemoglobin of 8.6, white cell count of 10.7, his BUN is at 33 with a creatinine of 1.2. Serum bicarb is up to 21. LFTs are normal and the serum albumin is down to 2.1. Ammonia level less than 9. 10/09/2020, patient is being seen for a follow-up. The patient is confused this morning. He is pleasantly confused. He is not agitated. He is not oriented to place and time. He is not oriented to people. His neurologic exam is nonfocal. He is obviously delirious. He remains on oxygen at 4 L per minute nasal cannula. Chest x-ray showing some limited improvement in infiltrates bilaterally. There is better visualization of the right hemidiaphragm. Noted the patient was given a dose of Lasix yesterday 40 mg IV push and his fluid balance has been essentially negativeAnd the patient has been negative fluid balance of 1.1 m at least for the past 24 hours. He is remaining on IV Zosyn. He is afebrile. ANDREA drain has put out approximately 1 20 mL on the right and 70 mL on the left. He passed a swallow evaluation. He is taken some limited dysphagia diet. Otherwise, his white cell count is at 9.7 with a hemoglobin of 9.3. BNP is at 33 with a creatinine of 1.25. Magnesium is at 1.9. IV fluids a re currently at KVO at 20 mL an hour. He is still on Keppra. This will be weaned off and discontinued per neurology. 10/10/2020, the patient is less confused compared to yesterday. He is calm and quiet. No agitation. He was given a dose of cerebral 50 mg overnight. He is tolerating his diet. He is eating properly. Abdominal wound is dry clean and intact. ANDREA drain is draining approximately 90 mL on the right and 30 seconds on the left and this is a 24 hour drainage. He is also stooling. No nausea. No vomiting. No abdominal pain. No fever. He was given a dose of Lasix yesterday 40 mg IV push and he diuresed adequately in the order of 1.1 L initially and later on 2.3 L fluid balance negative over the past 24 hours. As such, his fluid status is further optimized. His IV fluids are currently running at KVO. No seizure activity. He remains on IV Zosyn. He is afebrile. A follow-up chest x-ray needs to be done knowing that the chest x-ray was not repeated since 10/08/2020. 10/11/2020, the patient is out of the intensive care unit and currently is in the medical floor. He is being seen for a follow-up. As mentioned earlier, the patient was showing some signs of delirium. He is calm and comfortable. Nevertheless, I don't think his mentation is fully back to his baseline and remains to have some confusion. Tolerating his diet. No nausea or vomiting. He remains on IV Zosyn. He remains on Lovenox for DVT prophylaxis. He remains on bronchodilators and systemic steroids. The chest x-ray from yesterday was still showing some evidence of pneumonia with multifocal airspace disease. He is currently on oxygen at room air. Clinically improved. Objective - Vital Signs Vital signs: Vital Signs Temp 97.6 F 10/11/20 07:00 Pulse 78 10/11/20 08:44 Resp 18 10/11/20 07:30 BP 175/65 10/11/20 07:00 Pulse Ox 92 L 10/11/20 07:00 Intake & Output 10/10/20 10/11/20 10/11/20 18:59 06:59 18:59 Intake Total 180 600 Output Total 667 630 100 Balance -487 -30 -100 Weight 61.6 kg 55.5 kg Intake: IV 180 200 0.9 Sodium Chloride 80 Piperacillin-Tazobactam 3 100 200 .375 gm In Dextrose 5% in Water 100 ml @ 25 mls/hr IVPB Q8HR [facility] Rx#: [id number] Oral 400 Output: Drainage 90 230 100 Left Abdomen 165 Right Abdomen 90 65 100 Urine 577 400 Uretheral ([place]) 400 Other: Voiding Method Indwelling Catheter Toilet Toilet ABP, PAP, CO, CI - Last Documented Arterial Blood Pressure 126/118 - Exam GENERAL EXAM: 85-year-old white male , breathing comfortably, room air oxygen HEAD: Normocephalic/atraumatic. EYES: Normal reaction of pupils, equal size. Conjunctiva pink, sclera white. NOSE: Clear with pink turbinates. THROAT: No erythema or exudates. NECK: No masses, no JVD, no thyroid enlargement, no adenopathy. CHEST: No chest wall deformity. Symmetrical expansion. LUNGS: Equal air entry with no crackles, wheeze, rhonchi or dullness. On examination, he is also showing some signs of bronchospasm and wheezing. CVS: Regular rate and rhythm, normal S1 and S2, no gallops, no murmurs, no rubs ABDOMEN: Soft, mildly tender post surgery. No hepatosplenomegaly, normal bowel sounds, no guarding or rigidity. Midabdominal incision is clean dry and intact ANDREA drain output is serosanguineous, 30 mL from the left and 90 from right EXTREMITIES: No clubbing, no edema, no cyanosis, 2+ pulses and upper and lower extremities. MUSCULOSKELETAL: Muscle strength and tone normal. SPINE: No scoliosis or deformity SKIN: No rashes CENTRAL NERVOUS SYSTEM: No focal neurological deficit, continues to be delirious - Labs CBC & Chem 7: 10/10/20 04:02 10/10/20 04:02 Assessment and Plan Plan: #1. Acute splenic rupture following ERCP, status post exploratory laparotomy, splenectomy and lysis of adhesions on 09/27/2020, postoperative day #12 mother ANDREA drains are still active and there are putting out some serosanguineous material. Is being monitored by general surgery. We'll keep the drains in place. Surgical wound site is dry clean and intact and the patient is tolerating regular diet for now. #2. Postoperative routine mechanical ventilator management, with successful extubation on September 29, requiring BiPAP support after extubation, currently on high flow nasal cannula at room air oxygen. He was also offered bronchodilators and steroids as the patient developed significant bronchospasm and wheezing. He remains on IV Solu-Medrol. #3. Aspiration multifocal pneumonia, improving #4. Questionable syncope/seizure #5. E. coli bacteremia secondary to acute ascending cholangitis currently on Zosyn #6. Anemia of chronic disease, multifactorial, given a dose of iron yesterday and the patient's hemoglobin today is at 8.9 #7. Acute kidney injury secondary to ATN, improved #8. Postoperative bilateral pleural effusions secondary to aggressive fluid resuscitation and transfusion of blood products #9. History of hyperlipidemia #10. History of gout #11. History of hypertension #12 chronic diverticulosis #13 altered mentation, CAT scan of the brain is negative , there is ongoing delirium for now. Given Cervidil overnight. #14 difficulty in swallowing and the patient is going to undergo a barium swallow today. #15 Delerium plan currently on RA O2 Repeat chest x-ray in the morning Continue Seroquel 50 mg qhs. Continue IV Zosyn Continue bronchodilators Continue steroids as the patient continues to bronchus spastic and wheezy Monitor ANDREA drain Wound is dry clean and intact Restart the patient on Lovenox 30 mg subcu for DVT prophylaxis Continue with Diet Keep in the MICU
[2020-10-11] MEDS: TAMSULOSIN 0.4 MG CAP.ER.24H PO SCH (13:22)
--- NOTE | 2020-10-11 15:06 | P.PN ---
Subjective Progress Note Date: 10/11/20 Principal diagnosis: abdominal pain Patient is an 85-year-old male with a past medical history of hypertension and peripheral arterial disease. He had been found to have elevated liver enzymes and has been being worked up as an outpatient basis. Patient had a liver ul trasound and MRCP which suggested cholestasis with multiple gallstones. Patient presented to the emergency department on 09/24/20 with a chief complaint of right upper quadrant abdominal pain 1 day associated with nausea, vomiting, and diarrhea. Patient admitted under our services for acute ascending cholangitis with transaminitis and HERMELINDO. Abdominal ultrasound completed revealing numerous gallstones. Patient was under leukocytosis with a WBC count of 17.1, anemia with hemoglobin of 10.8, and thrombocytopenia with platelet count of 104,000. Acute kidney injury with BUN of 38, creatinine 1.63, and GFR of 38 with baseline hemoglobin of 1.2. Patient was taken for ERCP on 09/[address] 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 Call was made to transfer center and patient was accepted for transfer at [facility] by Dr. Wolfe. Patient was awaiting a bed assignment for transfer to be completed. Blood cultures positive for E. coli, patient provided coverage with continued use of IV antibiotics: Zosyn. His hemoglobin acutely dropped on the morning of 09/27 from 9.5-6.7. This was confirmed on repeat blood draw. He was taken down for emergent CT abdomen and pelvis which showed splenic rupture with possible hemorrhage into the pelvis. Surgery was contacted and the patient emergently went to the OR. 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 2 ANDREA drains were placed. Patient return to the ICU intubated and was successfully extubated on 09/29 and did have some confusion. This continued to worsen. He did not passes swallow evaluation initially. He then had some w orsening of his respiratory status requiring BiPAP therapy. He had possible seizure activity noted, neuro consulted and EEG noted swelling but no epileptiform activity. Neurology has recommended continued Keppra and outpatient prolonged EEG, unable to obtain MRI secondary to restlessness. Repeat head CT with no acute process. He underwent a CT abdomen and pelvis on 10/05 due to low HgB that showed moderate bilateral pleural effusions and groundglass opacities in the lungs, surgical drainage tubes, and a small amount of peritoneal fluid. Again he demonstrated cholelithiasis and a nodular ap pearance to the liver. He continued to struggle with confusion. He passed a swallow on 10/08. Started on seroquel and improving. Transferred out of the ICU. He did have some urinary retention after removal of reich and he was started on flomax. Patient seen and examined at bedside. Awake aware of year and being in the hospital. He denies pain. General: Ill appearing, no distress, appears younger than stated age Derm: warm, dry Head: atraumatic, normocephalic, symmetric Eyes:EOMI, no lid lag, anicteric sclera Mouth: no lip lesion, mucus membranes moist Cardiovascular: S1S2 reg with grade 2 systolic ejection murmur, positive posterior tibial pulse bilateral, Lungs: Decreasing bilateral, no rhonchi, no rales , no accessory muscle use, on vent Abdominal: soft, nondistended, non tender to palpation, no appreciable organomegaly, dressing over midline incision, Ext: no gross muscle atrophy, trace edema, no contractures Neuro: Moving all 4 extremities independently, no focal neuro deficits noted. Psych: awake alert and oriented X 3 but still unable to hold a conversation Acute ascending cholangitis with E. coli bacteremia Acute respiratory failure secondary to aspiration pneumonia, probable gram- negative Toxic metabolic encephalopathy -Outpatient MRCP revealed choledocholithiasis with possible obstructive jaundice pattern. -Patient was taken for ERCP on 09/25/[address] Huang, however it was reported that scope could not be advanced. D/W Dr. Yuen and will manage gallbladder as an outpatient at this time, no need for transfer. -Plans will be for outpatient laparoscopic cholecystectomy once acute illness improved. -Repeat blood cultures are negative to date -Zosyn, ID recs -Wean O2 as able -Pulmonary recommendations -Pulmonary hygiene, bronchodilators - surgery recs Urinary retention - monitor - start flomax Splenic rupture with acute blood loss anemia, thrombocytopenia, hypovolemic shock, resolved - s/p 4 units of pRBC and 1 unit of plt - surgery recs -Plan will be for immunization on 10/12/20. Patient will need strep pneumonia vaccine, meningitis, and Haemophilus influenza B Possible seizure versus myoclonic jerking -Neurology recommendations appreciated -keppra has been discontinued, continue to monitor Hypertension -With recent hypotension -metoprolol -resume lisinopril -Follow blood pressures Dysphagia - passed swallow on 10/08, still low intake - supplements - dietitian recs Hypernatremia, resolved Acute kidney injury, resolved Hyperchloremic metabolic acidosis, resolved DVT prophylaxis: SCDs Discussed with: nursing, fmaily Anticipated discharge: 4-[address]: home with home health A total of 36 minutes was spent on the care of this complex patient more than 50% of the time was spent in counseling and care coordination. Active Medications Acetaminophen (Acetaminophen Tab 325 Mg Tab) 650 mg PO Q6HR PRN PRN Reason: Fever and/ or Pain Last Admin: 10/11/20 08:27 Dose: 650 mg Documented by: Albuterol/Ipratropium (Ipratropium-Albuterol 3 Ml Neb) 3 ml INHALATION RT-QID [facility] Last Admin: 10/11/20 11:29 Dose: Not Given Documented by: Albuterol/Ipratropium (Ipratropium-Albuterol 3 Ml Neb) 3 ml INHALATION RT-Q2H PRN PRN Reason: Shortness Of Breath Or Wheezing Budesonide (Budesonide 1 Mg/2 Ml Nebu) 1 mg INHALATION RT-BID [facility] Last Admin: 10/11/20 08:24 Dose: 1 mg Documented by: Enoxaparin Sodium (Enoxaparin 30 Mg/0.3 Ml Syringe) 30 mg SQ DAILY [facility] Last Admin: 10/11/20 08:28 Dose: 30 mg Documented by: Famotidine (Famotidine 20 Mg Tab) 40 mg PO DAILY [facility] Last Admin: 10/11/20 08:27 Dose: 40 mg Documented by: Formoterol Fumarate (Formoterol Fumarate 20 Mcg/2 Ml Nebu) 20 mcg INHALATION RT-BID [facility] Last Admin: 10/11/20 08:24 Dose: 20 mcg Documented by: Haemophilus b Polysacch Conj Vacc (Haemoph B Poly Conj-Tet Tox/Pf 10 Mcg/0.5 Ml Vial) 10 mcg IM .ONCE ONE Stop: 10/12/20 09:01 Piperacillin Sod/Tazobactam (Sod 3.375 gm/ Dextrose/Water) 100 mls @ 25 mls/hr IVPB Q8HR [facility] Last Admin: 10/11/20 08:39 Dose: 25 mls/hr Documented by: Lisinopril (Lisinopril 20 Mg Tab) 40 mg PO DAILY [facility] Last Admin: 10/11/20 08:27 Dose: 40 mg Documented by: Meningococcal Polysaccharide Vacc (Mening Vac A,C,Y,W-135 Dip/Pf 4 Mcg/0.5 Ml Vial) 4 mcg IM .ONCE ONE Stop: 10/12/20 09:01 Methylprednisolone Sodium Succinate (Methylprednisolone Sod Succi 40 Mg/Ml 1 Ml Vial) 40 mg IV Q12HR [facility] Last Admin: 10/11/20 08:28 Dose: 40 mg Documented by: Metoprolol Tartrate (Metoprolol Tartrate 12.5 Mg Tab) 12.5 mg PO BID [facility] Last Admin: 10/11/20 08:28 Dose: 12.5 mg Documented by: Miscellaneous Information (Potassium Replacement Protocol 1 Each Misc) 1 each MISCELLANE DAILY PRN; Protocol PRN Reason: Per Protocol Miscellaneous Information (Magnesium Replacement Protocol 1 Each Misc) 1 each MISCELLANE DAILY PRN; Protocol PRN Reason: Per Protocol Naloxone HCl (Naloxone 0.4 Mg/Ml 1 Ml Vial) 0.2 mg IV Q2M PRN PRN Reason: Opioid Reversal Nicotine (Nicotine 21mg/24hr Patch) 1 patch TRANSDERM DAILY [facility] Last Admin: 10/11/20 08:28 Dose: 1 patch Documented by: Ondansetron HCl (Ondansetron 4 Mg/2 Ml Vial) 4 mg IVP Q8HR PRN PRN Reason: Nausea And Vomiting Pneumococcal Polyvalent Vaccine (Pneumococcal Vacc-Pneumovax 23 25 Mcg/0.5 Ml Vial) 25 mcg IM .ONCE ONE Stop: 10/12/20 09:01 Quetiapine Fumarate (Quetiapine 50 Mg Tab) 50 mg PO HS [facility] Last Admin: 10/10/20 22:12 Dose: 50 mg Documented by: Tamsulosin HCl (Tamsulosin 0.4 Mg Cap.Er.24h) 0.4 mg PO PC-BRKFST [facility] Last Admin: 10/11/20 13:22 Dose: 0.4 mg Documented by: Objective - Vital Signs Vital signs: Vital Signs Temp 98.1 F 10/11/20 13:30 Pulse 78 10/11/20 13:30 Resp 20 10/11/20 13:30 BP 175/79 10/11/20 13:30 Pulse Ox 93 L 10/11/20 13:30 Intake & Output 10/10/20 10/11/20 10/11/20 18:59 06:59 18:59 Intake Total 180 600 Output Total 667 630 100 Balance -487 -30 -100 Weight 61.6 kg 55.5 kg Intake: IV 180 200 0.9 Sodium Chloride 80 Piperacillin-Tazobactam 3 100 200 .375 gm In Dextrose 5% in Water 100 ml @ 25 mls/hr IVPB Q8HR [facility] Rx#: [id number] Oral 400 Output: Drainage 90 230 100 Left Abdomen 165 Right Abdomen 90 65 100 Urine 577 400 Uretheral (Reich) 400 Other: Voiding Method Indwelling Catheter Toilet Toilet # Bowel Movements 1 ABP, PAP, CO, CI - Last Documented Arterial Blood Pressure 126/118 - Labs CBC & Chem 7: 10/10/20 04:02 10/10/20 04:02
--- NOTE | 2020-10-11 18:56 | PN ---
PROGRESS NOTE DATE OF SERVICE: 10/11/2020 REASON FOR FOLLOWUP: Aspiration pneumonia and E coli bacteremia. INTERVAL HISTORY: The patient is afebrile. The patient is in the ICU. The patient is breathing comfortably on room air. Denies any chest pain or any worsening abdominal pain or diarrhea. PHYSICAL EXAMINATION: Blood pressure is 125/79, pulse of 73, temperature 98.1 he is 93% on room air. General description is an elderly male lying in no distress. Respiratory system unlabored breathing, decreased breath sounds. Heart S1-S2 regular rate and rhythm. Abdomen soft, no tenderness. LAB: Hemoglobin 8.7, BUN 7, creatinine 1.3. DIAGNOSTIC IMPRESSION AND PLAN: Patient with E coli bacteremia, aspiration pneumonia, on Zosyn. Transition to oral antibiotic on discharge. Patient post splenectomy for bleed. He will need ____. Discussed with the pharmacy. DEVON / HAKEEM: [id number] /
[2020-10-11] MEDS: QUEtiapine 50 MG TAB PO SCH (20:09)
[2020-10-12 06:32] LABS: Anisocytosis Slight; HCT 29.1 % (39.0-53.0); HGB 9.5 gm/dL (13.0-17.5); Hypochromasia Slight; MCH 30.7 pg (25.0-35.0); MCHC 32.8 g/dL (31.0-37.0); MCV 93.6 fL (80.0-100.0); Mean Platelet Volume 10.8; Platelet Count 200 k/uL (150-450); RBC 3.11 m/uL (4.30-5.90); RDW 17.8 % (11.5-15.5); WBC 8.1 k/uL (3.8-10.6)
[2020-10-12 06:42] LABS: African American GFR (CKD) 65 (>60 ml/min/1.73 sqM); Anion Gap 3 mmol/L; Blood Urea Nitrogen 42 mg/dL (9-20); Calcium 7.7 mg/dL (8.4-10.2); Carbon Dioxide 24 mmol/L (22-30); Chloride 112 mmol/L (98-107); Glucose 99 mg/dL (74-99); Non-African American GFR(CKD) 56 (>60 ml/min/1.73 sqM); Potassium 4.1 mmol/L (3.5-5.1); Sodium 139 mmol/L (137-145)
--- NOTE | 2020-10-12 07:21 | XR ---
EXAMINATION TYPE: XR chest 1V portable DATE OF EXAM: 10/12/2020 COMPARISON: 10/11/1999 HISTORY: Coronal TECHNIQUE: Single frontal view of the chest is obtained. FINDINGS: There are bilateral areas of infiltrate or localized consolidation involving the lower lob es and right upper lobe stable in appearance. Bilateral pleural effusions and underlying COPD. Heart size stable. Atherosclerotic change aorta. Arthropathy of the shoulders. IMPRESSION: 1. Bilateral areas of infiltrate and pleural effusion correlate for pneumonia. Underlying CHF in the differential diagnosis.
[2020-10-12] MEDS: METOPROLOL TARTRATE 12.5 MG TAB PO SCH ×2 (07:30→19:48)
[2020-10-12] MEDS: FAMOTIDINE 20 MG TAB PO SCH (07:30)
[2020-10-12] MEDS: TAMSULOSIN 0.4 MG CAP.ER.24H PO SCH (07:30)
[2020-10-12] MEDS: lisinopriL 20 MG TAB PO SCH (07:31)
[2020-10-12] MEDS: methylPREDNISolone SOD SUCCI 40 MG/ML 1 ML VIAL IV SCH (07:32)
[2020-10-12] MEDS: DEXTROSE 5% IVPB SCH ×4 (07:33→16:48)
[2020-10-12] MEDS: NICOTINE 21MG/24HR PATCH TRANSDERM SCH (07:33)
[2020-10-12] MEDS: PIPERACILLIN TAZOBACTAM IVPB SCH ×4 (07:33→16:48)
[2020-10-12] MEDS: ENOXAPARIN 30 MG/0.3 ML SYRINGE SQ SCH (07:33)
[2020-10-12] MEDS: WATER IVPB SCH ×4 (07:33→16:48)
[2020-10-12] MEDS: BUDESONIDE 1 MG/2 ML NEBU INHALATION SCH ×2 (08:25→18:14)
[2020-10-12] MEDS: FORMOTEROL FUMARATE 20 MCG/2 ML NEBU INHALATION SCH ×2 (08:25→18:14)
[2020-10-12] MEDS: IPRATROPIUM-ALBUTEROL 3 ML NEB INHALATION SCH ×4 (08:25→18:15)
[2020-10-12] MEDS ORDERED: PNEUMOCOCCAL VACC-PNEUMOVAX 23 25 MCG/0.5 ML VIAL IM ONE (09:00)
[2020-10-12] MEDS ORDERED: MENING VAC A,C,Y,W-135 DIP/PF 4 MCG/0.5 ML VIAL IM ONE (09:00)
[2020-10-12] MEDS ORDERED: HAEMOPH B POLY CONJ-TET TOX/PF 10 MCG/0.5 ML VIAL IM ONE (09:00)
[2020-10-12] MEDS ORDERED: FUROSEMIDE 10 MG/ML 4 ML VIAL IV STA (09:39)
--- NOTE | 2020-10-12 10:37 | P.PN ---
Subjective Progress Note Date: 10/12/20 Principal diagnosis: Splenic injury Patient much more alert today. Denies pain at this time. Tolerated more of his meal over 50%. Objective - Vital Signs Vital signs: Vital Signs Temp 97.6 F 10/12/20 08:08 Pulse 69 10/12/20 08:08 Resp 18 10/12/20 08:08 BP 178/73 10/12/20 08:08 Pulse Ox 94 L 10/12/20 08:08 Intake & Output 10/11/20 10/12/20 10/12/20 18:59 06:59 18:59 Intake Total 100 Output Total 487 360 Balance -487 -260 Weight 54.8 kg Intake: Intake, IV Titration 100 Amount Piperacillin-Tazobactam 3 100 .375 gm In Dextrose 5% in Water 100 ml @ 25 mls/hr IVPB Q8HR [facility] Rx#: [id number] Output: Drainage 300 360 Left Abdomen 100 180 Right Abdomen 200 180 Post Void Residual 187 Other: Voiding Method Toilet Toilet Toilet # Voids 2 # Bowel Movements 1 ABP, PAP, CO, CI - Last Documented Arterial Blood Pressure 126/118 - Exam Abdomen: Soft, nondistended, nontender, incision clean and dry, ANDREA serous - Labs CBC & Chem 7: 10/12/20 05:45 10/12/20 05:45 Labs: Abnormal Lab Results - Last 24 Hours (Table) 10/12/20 10/12/20 Range/Units 05:45 05:45 RBC 3.11 L (4.30-5.90) m/uL Hgb 9.5 L (13.0-17.5) gm/dL Hct 29.1 L (39.0-53.0) % RDW 17.8 H (11.5-15.5) % Chloride 112 H (98-107) mmol/L BUN 42 H (9-20) mg/dL Calcium 7.7 L (8.4-10.2) mg/dL Assessment and Plan (1) Splenic laceration Narrative/Plan: Patient doing well at this time. Continue diet as tolerated. Await placement at rehab. May discontinue antibiotics from my point of view. Current Visit: Yes Status: Acute Code(s): S36.039A - UNSPECIFIED LACERATION OF SPLEEN, INITIAL ENCOUNTER SNOMED Code(s): 547420536
--- NOTE | 2020-10-12 12:23 | P.PN ---
Subjective Progress Note Date: 10/12/20 This is an 85-year-old white male with 1 day history of right upper quadrant pain, presented initially to the hospital on 09/24/2020, patient was diagnosed as having choledocholithiasis and ascending cholangitis. Patient was seen by gastroenterology on consultation, and he underwent attempted ERCP, however the ERCP was difficult, and could not be diagnostic or therapeutic. This was done on 09/25, and according to the note by the director of strategy & mobile multiple attempts were made to advance the scope into the duodenum and visualizing the ampullary orifice was not successful. Hence ERCP was not performed. The director of strategy & mobile recommended referral to [facility] for ERCP. Surgery was consulted on the patient on 09/25/2020, and the patient was seen by Dr. Fried. He recommended laparoscopic cholecystectomy and this was supposed to be scheduled on 09/29/2020. In the meantime the patient was found to have E. coli bacteremia and he was on antibiotics all along. On 09/27/2020, patient was noted to have significant blood loss anemia, CT of the abdomen and pelvis showed splenic fracture. Hence Dr. Turcios saw the patient on consultation, and the patient underwent emergency exploratory laparotomy, extensive lysis of adhesions, open splenectomy with control of bleeding, evacuation of hemoperitoneum, application of a wound VAC system, placement of a ANDREA drain in the left splenic fossa and right at pelvis. Due to the emergency situation, open cholecystectomy was not performed, patient was transfused, required a total of 3 units of packed RBCs The patient is postop day #8. The patient was extubated off the mechanical ventilator on 09/29/2020 and the patient has required BiPAP postextubation currently the patient is on high flow oxygen 10 L per minute nasal cannula. There is a concern for an an aspiration of the right upper lobe. Noted the patient was requiring also BiPAP for respiratory support in the BiPAP was utilized pressure of 12/5 cm of water and FiO2 of 50% alternating with high flow oxygen. The patient is currently bacteremic secondary to a component of as cending cholangitis and the patient is currently on IV Zosyn. The patient also developed an acute kidney injury secondary to ATN. On yesterday's evaluation hemoglobin was at 6.8 and the patient received a unit of packed RBC. The CAT scan of the abdomen was also done showing postsplenectomy changes, moderate bilateral pleural effusion increased in size, round vasopressin the lungs could be related to interstitial edema, moderate appearance of the liver, cholelithiasis, colonic diverticulosis, perinephric stranding. The patient has not passed any bowel movements. No abdominal pain. The patient remains nothing by mouth. She hasn't been able to perform a modified barium swallow as the pat ient was quite BiPAP dependent earlier last week. Her white cell count was improving. A from today still showing upper lobe bilateral pulmonary infiltrates right more than left. Lower lungs are essentially more preserved. The patient is currently on oxygen at 8 L per minute nasal cannula. Blood work from today shows a white cell count of 12 with a hemoglobin of 9.9 which is stable compared to yesterday. The serum bicarb is at 19 with a mean of 38 and a creatinine of 1.1. No signs of any GI bleed. The patient remains nothing by mouth. The patient remains quite lethargic and somnolent, responsive to pain only, not to verbal and not following any commands. His breathing is more labored on today's evaluation and he has a deep congested cough, unable to bring up much sputum. His aspiration is in the mid 30s. Abdominal wound is dry clean and intact. ANDREA drains are in place. Output at 20-40cc/hr 10/07/2020, I see the patient is awake and alert and much more interactive compared to yesterday. We took him off Ativan yesterday and the patient's mental status gradually improved during the day and overnight he was on a BiPAP and this morning he was taken off the BiPAP and is fully interactive and communicating and moving all 4 extremities without any limitation. He is answer ing all questions. He remains slightly lethargic and slightly tachypneic. He was taken off the BiPAP and he was placed on 4 L of oxygen by nasal cannula and the patient's chest x-ray still showing diffuse bilaterally pulmonary infiltrates with upper lobe predominance consider aspiration pneumonia and he remains on IV Zosyn. The PICC line was pulled out accidentally by the patient and is currently off TPN. A swallow evaluation is to follow today. He did have a bowel movement. Surgical site over the abdomen is dry clean and intact. No abdominal distention. ANDREA drain is in place and output is 20cc/hr total amount of output from the ANDERA has been 1 95 mL from the one on the right and 20 mL from the 1 on the left ovary 12-hour period. The patient continues to have a component of non-anion gap metabolic acidosis. He'll be started on bicarb infusion to replace the bicarb deficits. The white cell count is at 10.4 with a hemoglobin of 8.6. No evidence of any GI bleed. No evidence of any blood loss intra-abdominal he. No abdominal distention. No other significant events overnight. Quite impressed by the mental status improvement since yesterday. 10/08/2020, the patient is looking well. He is awake and alert and communicating. He is hard of hearing as such is difficult to communicate with him. Nevertheless, he answers the questions appropriately. Currently is on 5 L by nasal cannula. He did not use the BiPAP no all night. Repeat chest x-ray from today shows improvement in the bilateral pulmonary infiltrates. He did have aspiration pneumonia and also considering the possibility of interstitial edema as the patient responded very nicely to that so that was given yesterday and those of 40 mg IV and following that he diuresed approximately 1 L. I'm going to repeat another dose of Lasix. An outpatient modified barium swallow will be done today. He is not receiving any form of nutrition. He is stooling. Abdomen is soft. Bowel sounds. ANDREA drains are still in place and output is minimal at this point declining. The right ANDREA drain has drained approximately 10 mL and the same as for the left ANDREA drain. Urine output is in order of 40-60 mL an hour. His blood work essentially stable , with a hemoglobin of 8.6 is essentially unchanged with a hemoglobin of 8.6, white cell count of 10.7, his BUN is at 33 with a creatinine of 1.2. Serum bicarb is up to 21. LFTs are normal and the serum albumin is down to 2.1. Ammonia level less than 9. 10/09/2020, patient is being seen for a follow-up. The patient is confused this morning. He is pleasantly confused. He is not agitated. He is not oriented to place and time. He is not oriented to people. His neurologic exam is nonfocal. He is obviously delirious. He remains on oxygen at 4 L per minute nasal cannula. Chest x-ray showing some limited improvement in infiltrates bilaterally. There is better visualization of the right hemidiaphragm. Noted the patient was given a dose of Lasix yesterday 40 mg IV push and his fluid balance has been essentially negativeAnd the patient has been negative fluid balance of 1.1 m at least for the past 24 hours. He is remaining on IV Zosyn. He is afebrile. ANDREA drain has put out approximately 1 20 mL on the right and 70 mL on the left. He passed a swallow evaluation. He is taken some limited dysphagia diet. Otherwise, his white cell count is at 9.7 with a hemoglobin of 9.3. BNP is at 33 with a creatinine of 1.25. Magnesium is at 1.9. IV fluids a re currently at KVO at 20 mL an hour. He is still on Keppra. This will be weaned off and discontinued per neurology. 10/10/2020, the patient is less confused compared to yesterday. He is calm and quiet. No agitation. He was given a dose of cerebral 50 mg overnight. He is tolerating his diet. He is eating properly. Abdominal wound is dry clean and intact. ANDREA drain is draining approximately 90 mL on the right and 30 seconds on the left and this is a 24 hour drainage. He is also stooling. No nausea. No vomiting. No abdominal pain. No fever. He was given a dose of Lasix yesterday 40 mg IV push and he diuresed adequately in the order of 1.1 L initially and later on 2.3 L fluid balance negative over the past 24 hours. As such, his fluid status is further optimized. His IV fluids are currently running at KVO. No seizure activity. He remains on IV Zosyn. He is afebrile. A follow-up chest x-ray needs to be done knowing that the chest x-ray was not repeated since 10/08/2020. 10/11/2020, the patient is out of the intensive care unit and currently is in the medical floor. He is being seen for a follow-up. As mentioned earlier, the patient was showing some signs of delirium. He is calm and comfortable. Nevertheless, I don't think his mentation is fully back to his baseline and remains to have some confusion. Tolerating his diet. No nausea or vomiting. He remains on IV Zosyn. He remains on Lovenox for DVT prophylaxis. He remains on bronchodilators and systemic steroids. The chest x-ray from yesterday was still showing some evidence of pneumonia with multifocal airspace disease. He is currently on oxygen at room air. Clinically improved. 10/12/2020, the patient is awake and alert on room air oxygen. Feeling well. Tolerating his diet. No nausea. No vomiting. No diarrhea. No abdominal pain. NADREA drains are still in place output is still high and the cath is located In place. The chest x-ray was repeated the patient has consolidation of the right upper lobe. Vague infiltration of the left lung. Overall the chest x-ray findings are improving as the patient is being treated for aspiration pneumonia. No fever. No chills. Clinically improving. Mental status is improved. His much more oriented and alert to self and time and people. No complaints for now. IV fluids are currently KVO. Objective - Vital Signs Vital signs: Vital Signs Temp 97.6 F 10/12/20 08:08 Pulse 78 10/12/20 11:50 Resp 18 10/12/20 11:50 BP 178/73 10/12/20 08:08 Pulse Ox 94 L 10/12/20 08:08 Intake & Output 10/11/20 10/12/20 10/12/20 18:59 06:59 18:59 Intake Total 100 Output Total 487 360 160 Balance -487 -260 -160 Weight 54.8 kg Intake: Intake, IV Titration 100 Amount Piperacillin-Tazobactam 3 100 .375 gm In Dextrose 5% in Water 100 ml @ 25 mls/hr IVPB Q8HR [facility] Rx#: [id number] Output: Drainage 300 360 160 Left Abdomen 100 180 60 Right Abdomen 200 180 100 Post Void Residual 187 Other: Voiding Method Toilet Toilet Toilet # Voids 2 # Bowel Movements 1 ABP, PAP, CO, CI - Last Documented Arterial Blood Pressure 126/118 - Exam GENERAL EXAM: 85-year-old white male , breathing comfortably, room air oxygen HEAD: Normocephalic/atraumatic. EYES: Normal reaction of pupils, equal size. Conjunctiva pink, sclera white. NOSE: Clear with pink turbinates. THROAT: No erythema or exudates. NECK: No masses, no JVD, no thyroid enlargement, no adenopathy. CHEST: No chest wall deformity. Symmetrical expansion. LUNGS: Equal air entry with no crackles, wheeze, rhonchi or dullness. On examination, he is also showing some signs of bronchospasm and wheezing. CVS: Regular rate and rhythm, normal S1 and S2, no gallops, no murmurs, no rubs ABDOMEN: Soft, mildly tender post surgery. No hepatosplenomegaly, normal bowel sounds, no guarding or rigidity. Midabdominal incision is clean dry and intact ANDREA drain output is serosanguineous, 30 mL from the left and 90 from right EXTREMITIES: No clubbing, no edema, no cyanosis, 2+ pulses and upper and lower extremities. MUSCULOSKELETAL: Muscle strength and tone normal. SPINE: No scoliosis or deformity SKIN: No rashes CENTRAL NERVOUS SYSTEM: No focal neurological deficit, continues to be delirious - Labs CBC & Chem 7: 10/12/20 05:45 10/12/20 05:45 Labs: Abnormal Lab Results - Last 24 Hours (Table) 10/12/20 10/12/20 Range/Units 05:45 05:45 RBC 3.11 L (4.30-5.90) m/uL Hgb 9.5 L (13.0-17.5) gm/dL Hct 29.1 L (39.0-53.0) % RDW 17.8 H (11.5-15.5) % Chloride 112 H (98-107) mmol/L BUN 42 H (9-20) mg/dL Calcium 7.7 L (8.4-10.2) mg/dL Assessment and Plan Plan: #1. Acute splenic rupture following ERCP, status post exploratory laparotomy, splenectomy and lysis of adhesions on 09/27/2020, postoperative day #13, ANDREA drains are still active and there are putting out some serosanguineous material. Is being monitored by general surgery. We'll keep the drains in place. Surgical wound site is dry clean and intact and the patient is tolerating regular diet for now. #2. Postoperative routine mechanical ventilator management, with successful extubation on September 29, requiring BiPAP support after extubation, currently on high flow nasal cannula at room air oxygen. He was also offered bronchodilators and steroids as the patient developed significant bronchospasm and wheezing. He remains on IV Solu-Medrol. #3. Aspiration multifocal pneumonia, improving #4. Questionable syncope/seizure #5. E. coli bacteremia secondary to acute ascending cholangitis currently on Zosyn #6. Anemia of chronic disease, multifactorial, given a dose of iron yesterday and the patient's hemoglobin today is at 8.9 #7. Acute kidney injury secondary to ATN, improved #8. Postoperative bilateral pleural effusions secondary to aggressive fluid resuscitation and transfusion of blood products #9. History of hyperlipidemia #10. History of gout #11. History of hypertension #12 chronic diverticulosis #13 altered mentation,/delirium/improving #14 difficulty in swallowing and the patient is going to undergo a barium swallow today. #15 Delerium, improving currently on Cipro plan currently on RA O2, chest x-ray is improved. There is some residual pulmonary infiltrates noted. Repeat chest x-ray in the morning Continue Seroquel 50 mg qhs. Continue IV Zosyn Continue bronchodilators This continued IV Solu-Medrol and put the patient 20 mg as part of burst taper Monitor ANDREA drain Wound is dry clean and intact Restart the patient on Lovenox 30 mg subcu for DVT prophylaxis Continue with Diet She is of incentive spirometer, physical therapy.
--- NOTE | 2020-10-12 13:19 | P.PN ---
Subjective Progress Note Date: 10/12/20 Principal diagnosis: abdominal pain Patient is an 85-year-old male with a past medical history of hypertension and peripheral arterial disease. He had been found to have elevated liver enzymes and has been being worked up as an outpatient basis. Patient had a liver ul trasound and MRCP which suggested cholestasis with multiple gallstones. Patient presented to the emergency department on 09/24/20 with a chief complaint of right upper quadrant abdominal pain 1 day associated with nausea, vomiting, and diarrhea. Patient admitted under our services for acute ascending cholangitis with transaminitis and HERMELINDO. Abdominal ultrasound completed revealing numerous gallstones. Patient was under leukocytosis with a WBC count of 17.1, anemia with hemoglobin of 10.8, and thrombocytopenia with platelet count of 104,000. Acute kidney injury with BUN of 38, creatinine 1.63, and GFR of 38 with baseline hemoglobin of 1.2. Patient was taken for ERCP on 09/[address] 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 Call was made to transfer center and patient was accepted for transfer at [facility] by Dr. Wolfe. Patient was awaiting a bed assignment for transfer to be completed. Blood cultures positive for E. coli, patient provided coverage with continued use of IV antibiotics: Zosyn. His hemoglobin acutely dropped on the morning of 09/27 from 9.5-6.7. This was confirmed on repeat blood draw. He was taken down for emergent CT abdomen and pelvis which showed splenic rupture with possible hemorrhage into the pelvis. Surgery was contacted and the patient emergently went to the OR. 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 2 ANDREA drains were placed. Patient return to the ICU intubated and was successfully extubated on 09/29 and did have some confusion. This continued to worsen. He did not passes swallow evaluation initially. He then had some w orsening of his respiratory status requiring BiPAP therapy. He had possible seizure activity noted, neuro consulted and EEG noted swelling but no epileptiform activity. Neurology has recommended continued Keppra and outpatient prolonged EEG, unable to obtain MRI secondary to restlessness. Repeat head CT with no acute process. He underwent a CT abdomen and pelvis on 10/05 due to low HgB that showed moderate bilateral pleural effusions and groundglass opacities in the lungs, surgical drainage tubes, and a small amount of peritoneal fluid. Again he demonstrated cholelithiasis and a nodular ap pearance to the liver. He continued to struggle with confusion. He passed a swallow on 10/08. Started on seroquel and improving. Transferred out of the ICU. He did have some urinary retention after removal of reich and he was started on flomax. Patient seen and examined at bedside. awake and talking, knows year and the hospital. No chest pain, no shortness of breath, states abd pain in minimal General: Ill appearing, no distress, appears younger than stated age Derm: warm, dry Head: atraumatic, normocephalic, symmetric Eyes:EOMI, no lid lag, anicteric sclera Mouth: no lip lesion, mucus membranes moist Cardiovascular: S1S2 reg with grade 2 systolic ejection murmur, positive posterior tibial pulse bilateral, Lungs: Decreasing bilateral, no rhonchi, no rales , no accessory muscle use, on vent Abdominal: soft, nondistended, non tender to palpation, no appreciable organomegaly, dressing over midline incision, Ext:+ gross muscle atrophy, trace edema, no contractures Neuro: Moving all 4 extremities independently, no focal neuro deficits noted. Psych: awake alert and oriented X 3 but still unable to hold a conversation Acute ascending cholangitis with E. coli bacteremia Acute respiratory failure secondary to aspiration pneumonia, probable gram- negative Toxic metabolic encephalopathy -Outpatient MRCP revealed choledocholithiasis with possible obstructive jaundice pattern. -Patient was taken for ERCP on 09/25/[address] Huang, however it was reported that scope could not be advanced. D/W Dr. Yuen and will manage gallbladder as an outpatient at this time, no need for transfer. -Plans will be for outpatient laparoscopic cholecystectomy once acute illness improved. -Repeat blood cultures are negative to date -Zosyn D # 14 consider discontinuing in AM. ID recs -Wean O2 as able -Pulmonary recommendations -Pulmonary hygiene, bronchodilators - surgery recs Urinary retention, resolved - continue flomax Splenic rupture with acute blood loss anemia, thrombocytopenia, hypovolemic shock, resolved - s/p 4 units of pRBC and 1 unit of plt - surgery recs - 10/12/20. Patient administered strep pneumonia vaccine, meningitis, and Haemophilus influenza B Hypertension -With recent hypotension -metoprolol - lisinopril -Follow blood pressures Dysphagia - passed swallow on 10/08, still low intake - supplements - dietitian recs Hypernatremia, resolved Acute kidney injury, resolved Hyperchloremic metabolic acidosis, resolved Possible seizure versus myoclonic jerking, resolved DVT prophylaxis: lovenox Discussed with: nursing, family Anticipated discharge: 4-[address]: home with home health A total of 36 minutes was spent on the care of this complex patient more than 50% of the time was spent in counseling and care coordination. Active Medications Acetaminophen (Acetaminophen Tab 325 Mg Tab) 650 mg PO Q6HR PRN PRN Reason: Fever and/ or Pain Last Admin: 10/11/20 08:27 Dose: 650 mg Documented by: Albuterol/Ipratropium (Ipratropium-Albuterol 3 Ml Neb) 3 ml INHALATION RT-QID [facility] Last Admin: 10/12/20 11:38 Dose: 3 ml Documented by: Albuterol/Ipratropium (Ipratropium-Albuterol 3 Ml Neb) 3 ml INHALATION RT-Q2H PRN PRN Reason: Shortness Of Breath Or Wheezing Budesonide (Budesonide 1 Mg/2 Ml Nebu) 1 mg INHALATION RT-BID [facility] Last Admin: 10/12/20 08:25 Dose: Not Given Documented by: Enoxaparin Sodium (Enoxaparin 30 Mg/0.3 Ml Syringe) 30 mg SQ DAILY [facility] Last Admin: 10/12/20 07:33 Dose: 30 mg Documented by: Famotidine (Famotidine 20 Mg Tab) 40 mg PO DAILY [facility] Last Admin: 10/12/20 07:30 Dose: 40 mg Documented by: Formoterol Fumarate (Formoterol Fumarate 20 Mcg/2 Ml Nebu) 20 mcg INHALATION RT-BID [facility] Last Admin: 10/12/20 08:25 Dose: Not Given Documented by: Piperacillin Sod/Tazobactam (Sod 3.375 gm/ Dextrose/Water) 100 mls @ 25 mls/hr IVPB Q8HR [facility] Last Admin: 10/12/20 07:33 Dose: 25 mls/hr Documented by: Lisinopril (Lisinopril 20 Mg Tab) 40 mg PO DAILY [facility] Last Admin: 10/12/20 07:31 Dose: 40 mg Documented by: Metoprolol Tartrate (Metoprolol Tartrate 12.5 Mg Tab) 12.5 mg PO BID [facility] Last Admin: 10/12/20 07:30 Dose: 12.5 mg Documented by: Miscellaneous Information (Potassium Replacement Protocol 1 Each Misc) 1 each MISCELLANE DAILY PRN; Protocol PRN Reason: Per Protocol Miscellaneous Information (Magnesium Replacement Protocol 1 Each Misc) 1 each MISCELLANE DAILY PRN; Protocol PRN Reason: Per Protocol Naloxone HCl (Naloxone 0.4 Mg/Ml 1 Ml Vial) 0.2 mg IV Q2M PRN PRN Reason: Opioid Reversal Nicotine (Nicotine 21mg/24hr Patch) 1 patch TRANSDERM DAILY [facility] Last Admin: 10/12/20 07:33 Dose: 1 patch Documented by: Ondansetron HCl (Ondansetron 4 Mg/2 Ml Vial) 4 mg IVP Q8HR PRN PRN Reason: Nausea And Vomiting Prednisone (Prednisone 20 Mg Tab) 20 mg PO DAILY [facility] Quetiapine Fumarate (Quetiapine 50 Mg Tab) 50 mg PO HS [facility] Last Admin: 10/11/20 20:09 Dose: 50 mg Documented by: Tamsulosin HCl (Tamsulosin 0.4 Mg Cap.Er.24h) 0.4 mg PO PC-BRKFST [facility] Last Admin: 10/12/20 07:30 Dose: 0.4 mg Documented by: Objective - Vital Signs Vital signs: Vital Signs Temp 97.6 F 10/12/20 08:08 Pulse 78 10/12/20 11:50 Resp 18 10/12/20 11:50 BP 178/73 10/12/20 08:08 Pulse Ox 94 L 10/12/20 08:08 Intake & Output 10/11/20 10/12/20 10/12/20 18:59 06:59 18:59 Intake Total 100 Output Total 487 360 160 Balance -487 -260 -160 Weight 54.8 kg Intake: Intake, IV Titration 100 Amount Piperacillin-Tazobactam 3 100 .375 gm In Dextrose 5% in Water 100 ml @ 25 mls/hr IVPB Q8HR [facility] Rx#: [id number] Output: Drainage 300 360 160 Left Abdomen 100 180 60 Right Abdomen 200 180 100 Post Void Residual 187 Other: Voiding Method Toilet Toilet Toilet # Voids 2 # Bowel Movements 1 ABP, PAP, CO, CI - Last Documented Arterial Blood Pressure 126/118 - Labs CBC & Chem 7: 10/12/20 05:45 10/12/20 05:45 Labs: Abnormal Lab Results - Last 24 Hours (Table) 10/12/20 10/12/20 Range/Units 05:45 05:45 RBC 3.11 L (4.30-5.90) m/uL Hgb 9.5 L (13.0-17.5) gm/dL Hct 29.1 L (39.0-53.0) % RDW 17.8 H (11.5-15.5) % Chloride 112 H (98-107) mmol/L BUN 42 H (9-20) mg/dL Calcium 7.7 L (8.4-10.2) mg/dL
--- NOTE | 2020-10-12 18:39 | PN ---
PROGRESS NOTE DATE OF SERVICE: 10/12/2020 REASON FOR FOLLOWUP: Aspiration pneumonia, E. coli bacteremia, post . INTERVAL HISTORY: Patient is afebrile. The patient is breathing better, breathing comfortably. The patient is currently on room air. Denies having any chest pain. No abdominal pain or any diarrhea. PHYSICAL EXAMINATION: Blood pressure is 147/64, pulse of 74, temperature 98. She is 97% on room air. General description is an elderly male lying in bed in no distress. Respiratory system: Unlabored breathing, decreased breath sounds at the bases. No wheeze. Heart: S1, S2. Regular rate and rhythm. Abdomen soft, no tenderness. LABS: Hemoglobin 9.5, white count 8.1. BUN of 42, creatinine 1.19. DIAGNOSTIC IMPRESSION AND PLAN: 1. Patient with E coli bacteremia secondary to possible component of aspiration pneumonia in this patient who has shown overall improvement on Zosyn. Transition to oral Augmentin on discharge to finish a course of therapy. 2. 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 3. Continue supportive care. MMODL / IJN: [id number] /
[2020-10-12] MEDS: AMOXIC-POT CLAV 875-125MG 1 EACH TAB PO SCH (19:48)
[2020-10-12] MEDS: QUEtiapine 50 MG TAB PO SCH (19:48)
[2020-10-13] MEDS: ENOXAPARIN 30 MG/0.3 ML SYRINGE SQ SCH (08:08)
[2020-10-13] MEDS: METOPROLOL TARTRATE 12.5 MG TAB PO SCH ×2 (08:09→21:59)
[2020-10-13] MEDS: AMOXIC-POT CLAV 875-125MG 1 EACH TAB PO SCH ×2 (08:09→21:59)
[2020-10-13] MEDS: FAMOTIDINE 20 MG TAB PO SCH (08:09)
[2020-10-13] MEDS: predniSONE 20 MG TAB PO SCH (08:09)
[2020-10-13] MEDS: lisinopriL 20 MG TAB PO SCH (08:09)
[2020-10-13] MEDS: TAMSULOSIN 0.4 MG CAP.ER.24H PO SCH (08:09)
[2020-10-13] MEDS: NICOTINE 21MG/24HR PATCH TRANSDERM SCH (08:09)
[2020-10-13] MEDS: BUDESONIDE 1 MG/2 ML NEBU INHALATION SCH ×2 (09:01→19:42)
[2020-10-13] MEDS: IPRATROPIUM-ALBUTEROL 3 ML NEB INHALATION SCH ×4 (09:01→19:42)
[2020-10-13] MEDS: FORMOTEROL FUMARATE 20 MCG/2 ML NEBU INHALATION SCH ×2 (09:01→19:42)
--- NOTE | 2020-10-13 13:04 | P.PN ---
Subjective Progress Note Date: 10/13/20 Principal diagnosis: Acute respiratory failure On 10/04/2020 patient seen in follow-up in the intensive care unit. he is lethargic, but opens eyes to voice, he is currently on BiPAP support, with pressures of 12 and 5 and FiO2 of 50%, estimated blood gases were reviewed showing pO2 of 114, pCO2 of 30, and pH is 7.37 and this was done on FiO2 of 50% on BiPAP. He is to be comfortable on today's exam, he is on D5W at a rate of 50 ML per hour, no vasopressor support, his follows simple command, he remains on antibiotics in the form of Zosyn for E. coli bacteremia, his follow-up blood cultures have shown no growth, sputum culture showed no growth. He is in sinus mechanism with a rate of 73 BPM. His chest x-ray shows improved aeration in his right lung. Was given a brief trial off the BiPAP and nasal cannula last night, he was placed back on BiPAP support overnight. Today's labs have been reviewed showing improving white blood cell count which is down to 19.2, hemoglobin is 7.2, sodium is 143, potassium is 3.6, chloride is 117, CO2 is 19, B1 is 33, creatinine is 1.16. Patient has been nothing by mouth, his modified barium swallow has been placed on hold because of BiPAP support. His urine output is in the order of 25-50 ML per hour. he remains on breathing treatments and IV Solu-Medrol, cough or wheezing on today's exam. He has not been able to do the incentive spirometer related to BiPAP support. Overall breathing better, looks more stable. We'll attempt nasal cannula trial this morning again. On 10/05/2020 patient seen in follow-up in the intensive care unit, he was on BiPAP overnight with pressures of 12 and 5 and 50%, this morning she was switched to 10 L high flow nasal cannula. Appears to be short of breath, but no acute distress, no chest pain. His been afebrile, he is on D5W at 50 ML per hour, not in any vasopressor support. Today his hemoglobin is down to 6.8 in the 1 unit of blood has been ordered. Yesterday's hemoglobin was 7.2. CT of the abdomen and pelvis is pending. She has not passed any bowel movements, no abdominal pain. Patient has been nothing by mouth, he has not been able to go to his modified barium swallow which shortness of breath and being BiPAP dependent. No nausea or vomiting. His possibility that patient may need an NG tube placed for tube feedings or enteral feedings if unable to have tube fe edings. Gen. surgery is following, will ask their input. He remains on Zosyn for E. coli bacteremia, his follow-up blood cultures have been negative, his sputum culture has shown no growth, urine culture was negative, his white blood cell count is improving on today's labs, and is down to 11.9, his BUN is 35, creatinine is 1.2. He remains on IV Solu-Medrol. Overall he seems to be breathing better, he remains on nebulized bronchodilators. On 10/13/2020 patient seen in follow-up on medical surgical floor. Patient is awake and alert, in no acute distress, he is resting comfortably in the re cliner, he is responding appropriately to verbal questioning, he appears weak, but appears to be in no acute distress, no complaints of shortness of breath, chest discomfort, no abdominal pain, he is on room air, with a pulse ox of 93%, no cough, no fever or chills. His vital signs have been stable. She remains on oral Augmentin, he remains on nebulized bronchodilators. He is on oral prednisone 20 mg daily. Today's labs have been reviewed, his white blood cell count is 8.1, hemoglobin is 9.5, sodium is 139, potassium is 4.1, chloride is 112, BUN is 42, creatinine is 1.19. His last chest x-ray was done yesterday showing bilateral areas of infiltrate and pleural effusion, with the conside ration of underlying CHF. His blood culture from a 09/25/2020 showed E. coli, his sputum and follow-up blood cultures have been negative, urine culture was negative. Complaints of abdominal discomfort, is tolerating oral diet. She remains on dysphagia level III chopped diet. Today's hemoglobin is 9.5. Hemodynamically has been stable. Patient has been working with physical therapy, at times she has been noted to be still somewhat confused, he remains on Seroquel. He is not receiving any other benzodiazepines or narcotics at this time. However his overall mental status seems to be improving. Also work is following, and discharge planning is in progress and the plan is for the patient to return home with family support. Objective - Vital Signs Vital signs: Vital Signs Temp 97.5 F L 10/13/20 08:47 Pulse 67 10/13/20 08:47 Resp 18 10/13/20 08:47 BP 158/61 10/13/20 08:47 Pulse Ox 93 L 10/13/20 08:47 Intake & Output 10/12/20 10/13/20 10/13/20 18:59 06:59 18:59 Output Total 420 Balance -420 Weight 55.1 kg Output: Drainage 420 Left Abdomen 120 Right Abdomen 300 Other: Voiding Method Toilet Toilet # Voids 1 1 ABP, PAP, CO, CI - Last Documented Arterial Blood Pressure 126/118 - Exam GENERAL EXAM: 85-year-old white male Alert, oriented 3, on room air with a pulse ox of 93-94% , comfortable in no apparent distress. HEAD: Normocephalic/atraumatic. EYES: Normal reaction of pupils, equal size. Conjunctiva pink, sclera white. NOSE: Clear with pink turbinates. THROAT: No erythema or exudates. NECK: No masses, no JVD, no thyroid enlargement, no adenopathy. CHEST: No chest wall deformity. Symmetrical expansion. LUNGS: Equal air entry with no crackles, wheeze, rhonchi or dullness. CVS: Regular rate and rhythm, normal S1 and S2, no gallops, no murmurs, no rubs ABDOMEN: Soft, mildly tender post surgery. No hepatosplenomegaly, normal bowel sounds, no guarding or rigidity. Midabdominal incision is clean dry and intact EXTREMITIES: No clubbing, no edema, no cyanosis, 2+ pulses and upper and lower extremities. MUSCULOSKELETAL: Muscle strength and tone normal. SPINE: No scoliosis or deformity SKIN: No rashes CENTRAL NERVOUS SYSTEM: Responding appropriately, awake and alert, oriented 3, occasional confusion noted overall seems to be improving. No focal deficits, tone is normal in all 4 extremities. - Labs CBC & Chem 7: 10/12/20 05:45 10/12/20 05:45 Assessment and Plan Plan: Assessment: #1. Acute splenic rupture following ERCP, status post exploratory laparotomy, splenectomy and lysis of adhesions on 09/27/2020, postoperative day #13. #2. Postoperative routine mechanical ventilator management, with successful extubation on September 29, requiring BiPAP support after extubation, and will rest her status has improved, currently patient is on room air #3. Probable aspiration pneumonia involving the right upper lobe in the left upper lobe with significant bronchospasm and worsening respiratory status, cu rrently improving #4. Questionable syncope/seizure #5. E. coli bacteremia secondary to acute ascending cholangitis currently on Zosyn #6. Acute blood loss anemia secondary to splenic rupture requiring 3 units of packed red blood cells, and 1 unit of platelets #7. Acute kidney injury secondary to ATN #8. Postoperative bilateral pleural effusions secondary to aggressive fluid resuscitation and transfusion of blood products #9. History of hyperlipidemia #10. History of gout #11. History of hypertension #12. Difficulty in swallowing, and patient is currently on the modified diet with dysphagia 3 chopped diet and supervision #13. Acute delirium, multifactorial, patient remains on Seroquel, and patient is improving Plan: Continue encouraging deep breathing and coughing Yesterday's chest x-ray has been reviewed Continue current antibiotics Continue breathing treatments Continue encouraging pulmonary toileting Encourage ambulation, and physical therapy participation Continue current dose oral prednisone 20 mg daily Clinically patient remains stable Discharge planning is in progress for possible discharge home versus ECF I performed a history & physical examination of the patient and discussed their management with my nurse practitioner, Breanne Maria. I reviewed the nurse practitioner's note and agree with the documented findings and plan of care. Lung sounds are positive for diminished breath sounds throughout the lung bello. The findings and the impression was discussed with the patient. I attest to the documentation by the nurse practitioner. Time with Patient: Less than 30
[2020-10-13] MEDS ORDERED: FUROSEMIDE 10 MG/ML 4 ML VIAL IV STA (14:40)
--- NOTE | 2020-10-13 14:42 | P.PN ---
Subjective Progress Note Date: 10/13/20 Principal diagnosis: abdominal pain Patient is an 85-year-old male with a past medical history of hypertension and peripheral arterial disease. He had been found to have elevated liver enzymes and has been being worked up as an outpatient basis. Patient had a liver ul trasound and MRCP which suggested cholestasis with multiple gallstones. Patient presented to the emergency department on 09/24/20 with a chief complaint of right upper quadrant abdominal pain 1 day associated with nausea, vomiting, and diarrhea. Patient admitted under our services for acute ascending cholangitis with transaminitis and HERMELINDO. Abdominal ultrasound completed revealing numerous gallstones. Patient was under leukocytosis with a WBC count of 17.1, anemia with hemoglobin of 10.8, and thrombocytopenia with platelet count of 104,000. Acute kidney injury with BUN of 38, creatinine 1.63, and GFR of 38 with baseline hemoglobin of 1.2. Patient was taken for ERCP on 09/[address] 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 Call was made to transfer center and patient was accepted for transfer at [facility] by Dr. Wolfe. Patient was awaiting a bed assignment for transfer to be completed. Blood cultures positive for E. coli, patient provided coverage with continued use of IV antibiotics: Zosyn. His hemoglobin acutely dropped on the morning of 09/27 from 9.5-6.7. This was confirmed on repeat blood draw. He was taken down for emergent CT abdomen and pelvis which showed splenic rupture with possible hemorrhage into the pelvis. Surgery was contacted and the patient emergently went to the OR. 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 2 ANDREA drains were placed. Patient return to the ICU intubated and was successfully extubated on 09/29 and did have some confusion. This continued to worsen. He did not passes swallow evaluation initially. He then had some w orsening of his respiratory status requiring BiPAP therapy. He had possible seizure activity noted, neuro consulted and EEG noted swelling but no epileptiform activity. Neurology has recommended continued Keppra and outpatient prolonged EEG, unable to obtain MRI secondary to restlessness. Repeat head CT with no acute process. He underwent a CT abdomen and pelvis on 10/05 due to low HgB that showed moderate bilateral pleural effusions and groundglass opacities in the lungs, surgical drainage tubes, and a small amount of peritoneal fluid. Again he demonstrated cholelithiasis and a nodular ap pearance to the liver. He continued to struggle with confusion. He passed a swallow on 10/08. Started on seroquel and improving. Transferred out of the ICU. He did have some urinary retention after removal of reich and he was started on flomax. Patient seen and examined at bedside. He reports intermittent abdominal pain, No shortness of breath, no nausea, no vomiting. General: Ill appearing, no distress, appears younger than stated age Derm: warm, dry Head: atraumatic, normocephalic, symmetric Eyes:EOMI, no lid lag, anicteric sclera Mouth: no lip lesion, mucus membranes moist Cardiovascular: S1S2 reg with grade 2 systolic ejection murmur, positive posterior tibial pulse bilateral, Lungs: + rhonchi bilateral, no accessory muscle use, on vent Abdominal: soft, nondistended, non tender to palpation, no appreciable organomegaly, dressing over midline incision, Ext:+ gross muscle atrophy, trace edema, no contractures Neuro: Moving all 4 extremities independently, no focal neuro deficits noted. Psych: awake alert and oriented X 3 but still unable to hold a conversation Acute ascending cholangitis with E. coli bacteremia Acute respiratory failure secondary to aspiration pneumonia, probable gram- negative Toxic metabolic encephalopathy -Outpatient MRCP revealed choledocholithiasis with possible obstructive jaundice pattern. -Patient was taken for ERCP on 09/25/[address] Huang, however it was reported that scope could not be advanced. D/W Dr. Yuen and will manage gallbladder as an outpatient at this time, no need for transfer. -Plans will be for outpatient laparoscopic cholecystectomy once acute illness improved. -Repeat blood cultures are negative to date -completed 14 days of zosyn and will discontinue -Wean O2 as able -Pulmonary recommendations -Pulmonary hygiene, bronchodilators - surgery recs: Currently still with ANDREA drains in place Urinary retention, resolved - continue flomax Splenic rupture with acute blood loss anemia, thrombocytopenia, hypovolemic shock, resolved - s/p 4 units of pRBC and 1 unit of plt - surgery recs - 10/12/20. Patient administered strep pneumonia vaccine, meningitis, and Haemophilus influenza B Hypertension -With recent hypotension -metoprolol - lisinopril -Follow blood pressures Dysphagia - passed swallow on 10/08, still low intake - supplements - dietitian recs patient with crackling in the lungs that is worse than yesterday. Lasix 1. Chest x-ray. Incentive spirometer. Hypernatremia, resolved Acute kidney injury, resolved Hyperchloremic metabolic acidosis, resolved Possible seizure versus myoclonic jerking, resolved DVT prophylaxis: lovenox Discussed with: nursing, family Anticipated discharge: [address]: home with home health A total of 36 minutes was spent on the care of this complex patient more than 50% of the time was spent in counseling and care coordination. Active Medications Acetaminophen (Acetaminophen Tab 325 Mg Tab) 650 mg PO Q6HR PRN PRN Reason: Fever and/ or Pain Last Admin: 10/11/20 08:27 Dose: 650 mg Documented by: Albuterol/Ipratropium (Ipratropium-Albuterol 3 Ml Neb) 3 ml INHALATION RT-QID [facility] Last Admin: 10/13/20 12:39 Dose: Not Given Documented by: Albuterol/Ipratropium (Ipratropium-Albuterol 3 Ml Neb) 3 ml INHALATION RT-Q2H PRN PRN Reason: Shortness Of Breath Or Wheezing Amoxicillin/Clavulanate Potassium (Amoxic-Pot Clav 875-125mg 1 Each Tab) 1 each PO Q12HR [facility] Last Admin: 10/13/20 08:09 Dose: 1 each Documented by: Budesonide (Budesonide 1 Mg/2 Ml Nebu) 1 mg INHALATION RT-BID [facility] Last Admin: 10/13/20 09:01 Dose: Not Given Documented by: Enoxaparin Sodium (Enoxaparin 40 Mg/0.4 Ml Syringe) 40 mg SQ DAILY [facility] Famotidine (Famotidine 20 Mg Tab) 20 mg PO DAILY [facility] Formoterol Fumarate (Formoterol Fumarate 20 Mcg/2 Ml Nebu) 20 mcg INHALATION RT-BID [facility] Last Admin: 10/13/20 09:01 Dose: Not Given Documented by: Lisinopril (Lisinopril 20 Mg Tab) 40 mg PO DAILY [facility] Last Admin: 10/13/20 08:09 Dose: 40 mg Documented by: Metoprolol Tartrate (Metoprolol Tartrate 12.5 Mg Tab) 12.5 mg PO BID [facility] Last Admin: 10/13/20 08:09 Dose: 12.5 mg Documented by: Miscellaneous Information (Potassium Replacement Protocol 1 Each Misc) 1 each MISCELLANE DAILY PRN; Protocol PRN Reason: Per Protocol Miscellaneous Information (Magnesium Replacement Protocol 1 Each Misc) 1 each MISCELLANE DAILY PRN; Protocol PRN Reason: Per Protocol Naloxone HCl (Naloxone 0.4 Mg/Ml 1 Ml Vial) 0.2 mg IV Q2M PRN PRN Reason: Opioid Reversal Nicotine (Nicotine 21mg/24hr Patch) 1 patch TRANSDERM DAILY [facility] Last Admin: 10/13/20 08:09 Dose: 1 patch Documented by: Ondansetron HCl (Ondansetron 4 Mg/2 Ml Vial) 4 mg IVP Q8HR PRN PRN Reason: Nausea And Vomiting Prednisone (Prednisone 20 Mg Tab) 20 mg PO DAILY [facility] Last Admin: 10/13/20 08:09 Dose: 20 mg Documented by: Quetiapine Fumarate (Quetiapine 50 Mg Tab) 50 mg PO HS [facility] Last Admin: 10/12/20 19:48 Dose: 50 mg Documented by: Tamsulosin HCl (Tamsulosin 0.4 Mg Cap.Er.24h) 0.4 mg PO PC-BRKFST [facility] Last Admin: 10/13/20 08:09 Dose: 0.4 mg Documented by: Objective - Vital Signs Vital signs: Vital Signs Temp 97.5 F L 10/13/20 08:47 Pulse 67 10/13/20 08:47 Resp 18 10/13/20 08:47 BP 158/61 10/13/20 08:47 Pulse Ox 93 L 10/13/20 08:47 Intake & Output 10/12/20 10/13/20 10/13/20 18:59 06:59 18:59 Output Total 420 130 Balance -420 -130 Weight 55.1 kg Output: Drainage 420 130 Left Abdomen 120 80 Right Abdomen 300 50 Other: Voiding Method Toilet Toilet # Voids 1 1 ABP, PAP, CO, CI - Last Documented Arterial Blood Pressure 126/118 - Labs CBC & Chem 7: 10/12/20 05:45 10/12/20 05:45
--- NOTE | 2020-10-13 15:11 | XR ---
EXAMINATION TYPE: XR chest 1V portable DATE OF EXAM: 10/13/2020 COMPARISON: 10/12/2020 HISTORY: Pneumonia, short of breath TECHNIQUE: Portable chest upright view FINDINGS: Heart size is normal. Pulmonary vasculature is normal. A small left pleural effusion is pre sent. Mild increased lung markings are noted the right upper lobe. This is improving from comparison. IMPRESSION: 1. Resolving right upper lobe infiltrate. 2. Stable small left pleural effusion
[2020-10-13] MEDS: QUEtiapine 50 MG TAB PO SCH (21:59)
[2020-10-14] MEDS: FORMOTEROL FUMARATE 20 MCG/2 ML NEBU INHALATION SCH ×2 (07:34→18:56)
[2020-10-14] MEDS: BUDESONIDE 1 MG/2 ML NEBU INHALATION SCH ×2 (07:34→18:56)
[2020-10-14] MEDS: IPRATROPIUM-ALBUTEROL 3 ML NEB INHALATION SCH ×4 (07:34→18:56)
[2020-10-14] MEDS: FAMOTIDINE 20 MG TAB PO SCH (08:28)
[2020-10-14] MEDS: METOPROLOL TARTRATE 12.5 MG TAB PO SCH ×2 (08:28→20:08)
[2020-10-14] MEDS: TAMSULOSIN 0.4 MG CAP.ER.24H PO SCH (08:28)
[2020-10-14] MEDS: ENOXAPARIN 40 MG/0.4 ML SYRINGE SQ SCH (08:28)
[2020-10-14] MEDS: AMOXIC-POT CLAV 875-125MG 1 EACH TAB PO SCH ×2 (08:28→20:08)
[2020-10-14] MEDS: NICOTINE 21MG/24HR PATCH TRANSDERM SCH (08:28)
[2020-10-14] MEDS: lisinopriL 20 MG TAB PO SCH (08:29)
[2020-10-14] MEDS: predniSONE 20 MG TAB PO SCH (08:29)
--- NOTE | 2020-10-14 08:59 | PN ---
PROGRESS NOTE DATE OF SERVICE: 10/13/2020 REASON FOR FOLLOWUP: 1. Aspiration pneumonia. 2. E coli bacteremia. 3. Post splenectomy. INTERVAL HISTORY: The patient is afebrile. The patient is currently breathing comfortably on room air. The patient is hemodynamically stable. The patient lethargic and did not provide any history. No vomiting or diarrhea was reported. PHYSICAL EXAMINATION: Blood pressure 127/67, pulse 104, temp 97.5. He is 96% on room air. General description is an elderly male lying in bed in no distress. Respiratory system: Unlabored breathing, decreased breath sounds at the base. No wheeze. Heart: S1, S2. Regular rate and rhythm. Abdomen soft, no tenderness. LABS: Hemoglobin 9.5, white count 8.1. BUN of 42, creatinine is 1.19. Sputum has been negative. Blood culture has been negative. DIAGNOSTIC IMPRESSION AND PLAN: Patient with an E coli bacteremia, concern for worsening cholangitis. Also with a component of aspiration pneumonia. X-ray showing overall improvement of the pneumonia. The patient is currently on oral Augmentin to continue for about a week to finish a course of therapy. Continue supportive care. MMODL / IJN: [id number] /
[2020-10-14 11:55] LABS: HCT 28.3 % (39.6-50.0); HGB 9.1 g/dL (13.0-17.0); MCH 29.7 pg (27.0-32.0); MCHC 32.2 g/dL (32.0-37.0); MCV 92.5 fL (80.0-97.0); Mean Platelet Volume 14.1 fL (9.5-12.2); Platelet Count 181 X 10*3/uL (140-440); RBC 3.06 X 10*6/uL (4.40-5.60); RDW 18.8 % (11.5-14.5); WBC 14.38 X 10*3/uL (4.50-10.00)
--- NOTE | 2020-10-14 13:06 | PN ---
PROGRESS NOTE DATE OF SERVICE: 10/14/2020 REASON FOR FOLLOWUP: E coli bacteremia, cholangitis, aspiration pneumonia. INTERVAL HISTORY: The patient is afebrile. He patient is awake and alert. He is breathing comfortably on room air. The patient denies having any chest pain. No vomiting has been reported by nursing staff. PHYSICAL EXAMINATION: Blood pressure 146/57, pulse 89. Temperature is 97.9. He is 98% on room air. General description is an elderly male up in the chair in no distress. Respiratory system: Unlabored breathing, decreased breath sounds at bases. No wheeze. Heart: S1, S2. Regular rate and rhythm. Abdomen soft, no tenderness. LABS: Hemoglobin is 9.2, white count of 14.38. DIAGNOSTIC IMPRESSION AND PLAN: Patient with E coli bacteremia, possible cholangitis and concern for aspiration pneumonia. Patient is currently on oral Augmentin. He did have slight jump in his white count which will be monitored closely and continue supportive care. MMODL / IJN: [id number] /
[2020-10-14 13:46] VITALS: BMI 23.4
--- NOTE | 2020-10-14 14:17 | P.PN ---
Subjective Progress Note Date: 10/14/20 Patient was seen and evaluated by me this morning. He was sitting in the chair. He denies any specific complaints. No acute events overnight reported by nursing staff. Objective - Vital Signs Vital signs: Vital Signs Temp 97.9 F 10/14/20 07:55 Pulse 89 10/14/20 07:55 Resp 20 10/14/20 07:55 BP 146/57 10/14/20 07:55 Pulse Ox 90 L 10/14/20 07:55 Intake & Output 10/13/20 10/14/20 10/14/20 18:59 06:59 18:59 Output Total 320 520 Balance -320 -520 Weight 54.5 kg 54.5 kg Output: Drainage 320 520 Left Abdomen 150 210 Right Abdomen 170 310 Other: Voiding Method Toilet # Voids 1 1 # Bowel Movements 1 ABP, PAP, CO, CI - Last Documented Arterial Blood Pressure 126/118 - Exam General: The patient is awake and alert, in no distress Eye: there is normal conjunctiva bilaterally. Neck: The neck is supple, there is no JVD. Cardiovascular: Normal S1-S2, no S3-S4, no murmurs. Respiratory: Lungs clear to auscultation bilaterally Gastrointestinal: Abdomen is soft, nontender Musculoskeletal: There is no pedal edema. Neurological:. Speech is normal. Skin: Skin is warm and dry - Labs CBC & Chem 7: 10/14/20 06:01 10/12/20 05:45 Labs: Abnormal Lab Results - Last 24 Hours (Table) 10/14/20 Range/Units 06:01 WBC 14.38 H (4.50-10.00) X 10*3/uL RBC 3.06 L (4.40-5.60) X 10*6/uL Hgb 9.1 L (13.0-17.0) g/dL Hct 28.3 L (39.6-50.0) % RDW 18.8 H (11.5-14.5) % MPV 14.1 H (9.5-12.2) fL Assessment and Plan Assessment: Patient is an 85-year-old male with a past medical history of hypertension and peripheral arterial disease. He had been found to have elevated liver enzymes and has been being worked up as an outpatient basis. Patient had a liver ul trasound and MRCP which suggested cholestasis with multiple gallstones. Patient presented to the emergency department on 09/24/20 with a chief complaint of right upper quadrant abdominal pain 1 day associated with nausea, vomiting, and diarrhea. Patient admitted under our services for acute ascending cholangitis with transaminitis and HERMELINDO. Abdominal ultrasound completed revealing numerous gallstones. Patient was under leukocytosis with a WBC count of 17.1, anemia with hemoglobin of 10.8, and thrombocytopenia with platelet count of 104,000. Acute kidney injury with BUN of 38, creatinine 1.63, and GFR of 38 with baseline hemoglobin of 1.2. Patient was taken for ERCP on 09/[address] 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 Call was made to transfer center and patient was accepted for transfer at [facility] by Dr. Wolfe. Patient was awaiting a bed assignment for transfer to be completed. Blood cultures positive for E. coli, patient provided coverage with continued use of IV antibiotics: Zosyn. His hemoglobin acutely dropped on the morning of 09/27 from 9.5-6.7. This was confirmed on repeat blood draw. He was taken down for emergent CT abdomen and pelvis which showed splenic rupture with possible hemorrhage into the pelvis. Surgery was contacted and the patient emergently went to the OR. 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 2 ANDREA drains were placed. Patient return to the ICU intubated and was successfully extubated on 09/29 and did have some confusion. This continued to worsen. He did not passes swallow evaluation initially. He then had some w orsening of his respiratory status requiring BiPAP therapy. He had possible seizure activity noted, neuro consulted and EEG noted swelling but no epileptiform activity. Neurology has recommended continued Keppra and outpatient prolonged EEG, unable to obtain MRI secondary to restlessness. Repeat head CT with no acute process. He underwent a CT abdomen and pelvis on 10/05 due to low HgB that showed moderate bilateral pleural effusions and groundglass opacities in the lungs, surgical drainage tubes, and a small amount of peritoneal fluid. Again he demonstrated cholelithiasis and a nodular ap pearance to the liver. He continued to struggle with confusion. He passed a swallow on 10/08. Started on seroquel and improving. Transferred out of the ICU. He did have some urinary retention after removal of reich and he was started on flomax. Acute ascending cholangitis with E. coli bacteremia Acute respiratory failure secondary to aspiration pneumonia, probable gram- negative Toxic metabolic encephalopathy -Outpatient MRCP revealed choledocholithiasis with possible obstructive jaundice pattern. -Patient was taken for ERCP on 09/25/[address] Huang, however it was reported that scope could not be advanced. D/W Dr. Yuen and will manage gallbladder as an outpatient at this time, no need for transfer. -Plans will be for outpatient laparoscopic cholecystectomy once acute illness improved. -Repeat blood cultures are negative to date -completed 14 days of zosyn and will discontinue -Wean O2 as able -Pulmonary recommendations -Pulmonary hygiene, bronchodilators - surgery recs: Currently still with ANDREA drains in place Urinary retention, resolved - continue flomax Splenic rupture with acute blood loss anemia, thrombocytopenia, hypovolemic shock, resolved - s/p 4 units of pRBC and 1 unit of plt - surgery recs - 10/12/20. Patient administered strep pneumonia vaccine, meningitis, and Haemophilus influenza B Hypertension -With recent hypotension -metoprolol - lisinopril -Follow blood pressures Dysphagia - passed swallow on 10/08, still low intake - supplements - dietitian recs patient with crackling in the lungs that is worse than yesterday. Lasix 1. Chest x-ray. Incentive spirometer. Hypernatremia, resolved Acute kidney injury, resolved Hyperchloremic metabolic acidosis, resolved Possible seizure versus myoclonic jerking, resolved DVT prophylaxis: lovenox Discussed with: nursing, family Anticipated discharge: [address]: home with home health A total of 36 minutes was spent on the care of this complex patient more than 50% of the time was spent in counseling and care coordination.
[2020-10-14 14:22] LABS: African American GFR (CKD) 64.4 (60.0-200.0); Albumin 2.3 g/dL (3.80-4.90); Albumin/Globulin Ratio 1.64 (1.60-3.17); Anion Gap 9.9 mmol/L (4.00-12.00); BUN/Creat Ratio 39.17 Ratio (12.00-20.00); Calcium 7.3 mg/dL (8.7-10.3); Carbon Dioxide 26.1 mmol/L (21.6-31.8); Globulin 1.4 g/dL (1.6-3.3); Non-African American GFR(CKD) 55.6 (60.0-200.0); Phosphorus 3.3 mg/dL (2.4-5.1); Potassium 4.1 mmol/L (3.5-5.5); Total Bilirubin 0.5 mg/dL (0.3-1.2); Total Protein 3.7 g/dL (6.2-8.2)
--- NOTE | 2020-10-14 15:41 | P.PN ---
Subjective Progress Note Date: 10/14/20 CHIEF COMPLAINT: Right upper quadrant abdominal pain HISTORY OF PRESENT ILLNESS: Patient admitted to the hospital for ascending cholangitis. He was in transition for transfer to [facility] for def initive ERCP for common bile duct obstruction when he developed acute blood loss anemia and CT findings of ruptured spleen. 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 Patient was transferred out of the ICU over the weekend. He reports no abdominal pain. He denies any nausea or vomiting. He is eating at least half of his meals. He reports having bowel movements. Afebrile. WBC 14.38 is up. hemoglobin 9.1 creatinine 1.2 total bili 0.5 AST 41 ALT 46. PHYSICAL EXAM: VITAL SIGNS: Reviewed. GENERAL: Well-developed in no acute distress. HEENT: No sclera icterus. Extraocular movements grossly intact. Moist buccal mucosa. Head is atraumatic, normocephalic. ABDOMEN: Soft. Nondistended dressing clean dry and intact. Abdominal binder in place. 2 ANDREA drains with ascites fluid output. NEUROLOGIC: Awake and answering questions ASSESSMENT: 1. Acute splenic rupture of unclear etiology. Status post Exploratory laparotomy with extensive lysis of adhesions, open splenectomy and evacuation of hemoperitoneum 2. Acute blood loss anemia due to splenic rupture 3. Ascending cholangitis with bacteremia 4. Symptomatic gallstone 5. Thrombocytopenia 6. Possible seizure 7. Acute kidney injury 8. Dysphagia 9. Aspiration pneumonia 10. Bilateral pleural effusions 11. Hard of hearing 12. Iron deficiency anemia PLAN: -Cholecystectomy deferred -Encourage incentive spirometry use -Encourage patient to increase activity -Continue antibiotics per ID -Continue dysphagia chopped diet Physician Tea Room Manager note has been reviewed by physician. Signing provider agrees with the documented findings, assessment, and plan of care. Objective - Vital Signs Vital signs: Vital Signs Temp 97.5 F L 10/14/20 14:41 Pulse 79 10/14/20 14:41 Resp 18 10/14/20 14:41 BP 149/56 10/14/20 14:41 Pulse Ox 95 10/14/20 14:41 Intake & Output 10/13/20 10/14/20 10/14/20 18:59 06:59 18:59 Output Total 320 520 Balance -320 -520 Weight 54.5 kg 54.5 kg Output: Drainage 320 520 Left Abdomen 150 210 Right Abdomen 170 310 Other: Voiding Method Toilet # Voids 1 1 2 # Bowel Movements 1 ABP, PAP, CO, CI - Last Documented Arterial Blood Pressure 126/118 - Labs CBC & Chem 7: 10/14/20 06:01 10/14/20 06:01 Labs: Abnormal Lab Results - Last 24 Hours (Table) 10/14/20 10/14/20 Range/Units 06:01 06:01 WBC 14.38 H (4.50-10.00) X 10*3/uL RBC 3.06 L (4.40-5.60) X 10*6/uL Hgb 9.1 L (13.0-17.0) g/dL Hct 28.3 L (39.6-50.0) % RDW 18.8 H (11.5-14.5) % MPV 14.1 H (9.5-12.2) fL BUN 47.0 H (9.0-27.0) mg/dL Est GFR (CKD-EPI)NonAf 55.6 L (60.0-200.0) BUN/Creatinine Ratio 39.17 H (12.00-20.00) Ratio Glucose 68 L (70-110) mg/dL Calcium 7.3 L (8.7-10.3) mg/dL AST 41 H (14-35) U/L Total Protein 3.7 L (6.2-8.2) g/dL Albumin 2.30 L (3.80-4.90) g/dL Globulin 1.4 L (1.6-3.3) g/dL
[2020-10-14] MEDS: QUEtiapine 50 MG TAB PO SCH (20:07)
[2020-10-15 08:15] VITALS: BP 168/61; PULSE 70; RESP 18; TEMP 97.6
[2020-10-15] MEDS: FORMOTEROL FUMARATE 20 MCG/2 ML NEBU INHALATION SCH (08:21)
[2020-10-15] MEDS: IPRATROPIUM-ALBUTEROL 3 ML NEB INHALATION SCH ×2 (08:21→12:14)
[2020-10-15] MEDS: BUDESONIDE 1 MG/2 ML NEBU INHALATION SCH (08:21)
[2020-10-15] MEDS: ACETAMINOPHEN TAB 325 MG TAB PO PRN (09:31)
[2020-10-15] MEDS: AMOXIC-POT CLAV 875-125MG 1 EACH TAB PO SCH (09:31)
[2020-10-15] MEDS: predniSONE 20 MG TAB PO SCH (09:31)
[2020-10-15] MEDS: FAMOTIDINE 20 MG TAB PO SCH ×2 (09:31→09:32)
[2020-10-15] MEDS: TAMSULOSIN 0.4 MG CAP.ER.24H PO SCH (09:31)
[2020-10-15] MEDS: NICOTINE 21MG/24HR PATCH TRANSDERM SCH (09:31)
[2020-10-15] MEDS: ENOXAPARIN 40 MG/0.4 ML SYRINGE SQ SCH (09:31)
[2020-10-15] MEDS: METOPROLOL TARTRATE 12.5 MG TAB PO SCH (09:32)
[2020-10-15] MEDS: lisinopriL 20 MG TAB PO SCH (09:32)
--- NOTE | 2020-10-15 11:39 | P.PN ---
Subjective Progress Note Date: 10/15/20 CHIEF COMPLAINT: Ruptured spleen HISTORY OF PRESENT ILLNESS: The patient is a 85-year-old male initially admitted for ascending cholangitis and history of common bile duct stones. He developed acute blood loss anemia due to ruptured spleen and is status post splenectomy. He had aspiration pneumonia. He is now improved. Additionally, patient had received his vaccines October 12. He is sitting up in chair. He is hard of hearing. No complaints. He tolerating diet. He denies abdominal pain. ROS: No fevers or chills. No new chest pain. No shortness of breath. PHYSICAL EXAM: VITAL SIGNS: Reviewed CONSTITUTIONAL: Well developed EYES: Conjuctivae without sclera icterus. HEAD, EARS, NOSE, THROAT: Moist buccal mucosa. Head is atraumatic, normocephalic. Hears in left ear. NECK: No jugular venous distention. RESPIRATORY: Non-labored respirations and equal bilateral excursions. CARDIOVASCULAR: 2+ radial pulses ABDOMEN: ANDREA serous and discontinued at bedside. Incision intact with unique. No cellulitis or infection. No peritonitis. MUSCULOSKELETAL: No gross deformity of the lower extremities noted. No clubbing. No cyanosis. SKIN: Good skin turgor. Well perfused. NEUROLOGIC: Cranial nerves II through XII grossly intact. No focal or lateralizing signs. PSYCH: Alert and oriented. CLINICAL LABS: Reviewed. WBC elevated from 9 to 14. ASSESSMENT: 1. Acute splenic rupture 2. Acute blood loss anemia due to splenic rupture 3. History of ascending cholangitis 4. Symptomatic gallstone 5. Thrombocytopenia 6. Aspiration pneumonia PLAN: 1. ANDREA drains were discontinued at bedside. 2. and nurse at bedside. Follow up instructions and wound care instructions reviewed. 3. Stable from a surgical standpoint for discharge when medically stable. Objective - Vital Signs Vital signs: Vital Signs Temp 97.6 F 10/15/20 08:14 Pulse 70 10/15/20 08:14 Resp 18 10/15/20 08:14 BP 168/61 10/15/20 08:14 Pulse Ox 92 L 10/15/20 08:14 Intake & Output 10/14/20 10/15/20 10/15/20 18:59 06:59 18:59 Intake Total 100 Output Total 260 560 110 Balance -260 -460 -110 Weight 54.5 kg 55 kg Intake: Oral 100 Output: Drainage 260 560 110 Left Abdomen 180 380 30 Right Abdomen 80 180 80 Other: Voiding Method Toilet # Voids 2 ABP, PAP, CO, CI - Last Documented Arterial Blood Pressure 126/118 - Labs CBC & Chem 7: 10/14/20 06:01 10/14/20 06:01 Labs: Abnormal Lab Results - Last 24 Hours (Table) 10/14/20 10/14/20 Range/Units 06:01 06:01 WBC 14.38 H (4.50-10.00) X 10*3/uL RBC 3.06 L (4.40-5.60) X 10*6/uL Hgb 9.1 L (13.0-17.0) g/dL Hct 28.3 L (39.6-50.0) % RDW 18.8 H (11.5-14.5) % MPV 14.1 H (9.5-12.2) fL BUN 47.0 H (9.0-27.0) mg/dL Est GFR (CKD-EPI)NonAf 55.6 L (60.0-200.0) BUN/Creatinine Ratio 39.17 H (12.00-20.00) Ratio Glucose 68 L (70-110) mg/dL Calcium 7.3 L (8.7-10.3) mg/dL AST 41 H (14-35) U/L Total Protein 3.7 L (6.2-8.2) g/dL Albumin 2.30 L (3.80-4.90) g/dL Globulin 1.4 L (1.6-3.3) g/dL Assessment and Plan (1) Acute blood loss anemia Current Visit: Yes Status: Acute Code(s): D62 - ACUTE POSTHEMORRHAGIC ANEMIA SNOMED Code(s): 666867653 (2) Ruptured spleen Current Visit: Yes Status: Acute Code(s): S36.09XA - OTHER INJURY OF SPLEEN, INITIAL ENCOUNTER SNOMED Code(s): 736723248 (3) Acute kidney injury Current Visit: Yes Status: Acute Code(s): N17.9 - ACUTE KIDNEY FAILURE, UNSPECIFIED SNOMED Code(s): 86259899 (4) Ascending cholangitis Current Visit: Yes Status: Acute Code(s): K83.09 - OTHER CHOLANGITIS SNOMED Code(s): 40812431 (5) Choledocholithiasis Current Visit: Yes Status: Acute Code(s): K80.50 - CALCULUS OF BILE DUCT W/O CHOLANGITIS OR CHOLECYST W/O OBST SNOMED Code(s): 850124061
--- NOTE | 2020-10-15 12:51 | P.PN ---
Progress Note - Text Progress Note Date: 10/15/20 REASON FOR FOLLOWUP: E coli bacteremia, cholangitis, aspiration pneumonia. INTERVAL HISTORY: The patient remains to be afebrile. patient is breathing comfortably on room air. The patient denies having any chest pain. No vomiting has been reported by nursing staff. PHYSICAL EXAMINATION: Blood pressure 140/50, pulse 80. Temperature is 97.9. He is 98% on room air. General description is an elderly male up in the chair in no distress. Respiratory system: Unlabored breathing, decreased breath sounds at bases. No wheeze. Heart: S1, S2. Regular rate and rhythm. Abdomen soft, no tenderness. LABS: reviewed DIAGNOSTIC IMPRESSION AND PLAN: Patient with E coli bacteremia, possible cholangitis and concern for aspiration pneumonia. 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
--- NOTE | 2020-10-15 13:41 | P.DS ---
Providers Date of admission: 09/24/20 23:54 Expected date of discharge: 10/15/20 Attending physician: Elizabeth Palacios MD Consults: 09/24/20 23:42 Consult Physician Routine Consulting Provider: Mague Huang Consult Reason/Comments: cholelithiasis; ascending cholangitis Do you want consulting provider notified?: Yes 09/27/20 12:33 Consult Physician Stat Consulting Provider: Jhonatan Ho Consult Reason/Comments: splenic rupture, ICU care Do you want consulting provider notified?: Yes 09/28/20 17:21 Consult Physician Routine Consulting Provider: Faith Gimenez Consult Reason/Comments: spleenectomy Do you want consulting provider notified?: Already Contacted 09/29/20 08:29 Consult Physician Urgent Consulting Provider: Loi Palmer Consult Reason/Comments: Sepsis, cholangitis, splenectomy Do you want consulting provider notified?: Yes 10/02/20 08:24 Consult Physician Routine Consulting Provider: Satya Garcia Consult Reason/Comments: Questionable seizures, AMS Do you want consulting provider notified?: Yes [facility] care [facility] Course: Patient is an 85-year-old male with a past medical history of hypertension and peripheral arterial disease. He had been found to have elevated liver enzymes and has been being worked up as an outpatient basis. Patient had a liver ultrasound and MRCP which suggested cholestasis with multiple gallstones. Patient presented to the emergency department on 09/24/20 with a chief complaint of right upper quadrant abdominal pain 1 day associated with nausea, vomiting, and diarrhea. Patient admitted under our services for acute ascending cholangitis with transaminitis and HERMELINDO. Abdominal ultrasound completed revealing numerous gallstones. Patient was under leukocytosis with a WBC count of 17.1, anemia with hemoglobin of 10.8, and thrombocytopenia with platelet count of 104,000. Acute kidney injury with BUN of 38, creatinine 1.63, and GFR of 38 with baseline hemoglobin of 1.2. Patient was taken for ERCP on 09/[address] 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 to have ERCP completed. Call was made to transfer center and patient was accepted for transfer at [facility] by Dr. Wolfe. Patient was awaiting a bed assignment for transfer to be completed. Blood cultures positive for E. coli, patient provided coverage with continued use of IV antibiotics: Zosyn. His hemoglobin acutely dropped on the morning of 09/27 from 9.5-6.7. This was confirmed on repeat blood draw. He was taken down for emergent CT abdomen and pelvis which showed splenic rupture with possible hemorrhage into the pelvis. Surgery was contacted and the patient emergently went to the OR. 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 2 ANDREA drains were placed. Patient return to the ICU intubated and was successfully extubated on 09/29 and did have some confusion. This continued to worsen. He did not passes swallow evaluation initially. He then had some worsening of his respiratory status requiring BiPAP therapy. He had possible seizure activity noted, neuro consulted and EEG noted swelling but no epileptiform activity. Neurology has recommended continued Keppra and outpatient prolonged EEG, unable to obtain MRI secondary to restlessness. Repeat head CT with no acute process. He underwent a CT abdomen and pelvis on 10/05 due to low HgB that showed moderate bilateral pleural effusions and groundg lass opacities in the lungs, surgical drainage tubes, and a small amount of peritoneal fluid. Again he demonstrated cholelithiasis and a nodular appearance to the liver. He continued to struggle with confusion. He passed a swallow on 10/08. Started on seroquel and improving. Transferred out of the ICU. He did have some urinary retention after removal of reich and he was started on flomax. Acute ascending cholangitis with E. coli bacteremia Acute respiratory failure secondary to aspiration pneumonia, probable gram- negative Toxic metabolic encephalopathy -Outpatient MRCP revealed choledocholithiasis with possible obstructive jaundice pattern. -Patient was taken for ERCP on 09/25/[address] Huang, however it was reported that scope could not be advanced. D/W Dr. Gimenez and will manage gallbladder as an outpatient at this time, no need for transfer. -Plans will be for outpatient laparoscopic cholecystectomy once acute illness improved. -Repeat blood cultures are negative to date -completed 14 days of zosyn Urinary retention, resolved - continue flomax Splenic rupture with acute blood loss anemia, thrombocytopenia, hypovolemic shock, resolved - s/p 4 units of pRBC and 1 unit of plt - 10/12/20. Patient administered strep pneumonia vaccine, meningitis, and Haemophilus influenza B Hypertension -Follow blood pressures Dysphagia - passed swallow on 10/08, still low intake - supplements - dietitian isabella Patient was seen, evaluated, and examined by me on the day of discharge. ANDREA drain discontinued by general surgery. Cleared by surgery for discharge. Patient Condition at Discharge: Fair Plan - Discharge Summary Discharge Rx Participant: No New Discharge Prescriptions: New Nicotine 21Mg/24Hr Patch [Habitrol] 1 patch TRANSDERM DAILY #30 patch Metoprolol Tartrate [Lopressor] 12.5 mg PO BID #60 tab Famotidine [Pepcid] 20 mg PO DAILY #30 tab Budesonide [Pulmicort] 1 mg INHALATION RT-BID #2 inhaler Albuterol Inhaler [Ventolin Hfa Inhaler] 2 puff INHALATION QID PRN #2 inhaler PRN Reason: Shortness Of Breath Amoxic-Pot Clav 875-125Mg [Augmentin 875-125] 1 each PO Q12HR #10 tab Tamsulosin [Flomax] 0.4 mg PO PC-BRKFST #30 cap.er.24h predniSONE 10 mg PO DAILY #3 tab Continue allopurinoL [Zyloprim] 100 mg PO DAILY lisinopriL 40 mg PO DAILY Atorvastatin Calcium [Lipitor] 80 mg PO DAILY Discontinued Furosemide [Lasix] 40 mg PO DAILY atenoloL [Tenormin] 50 mg PO DAILY Discharge Medication List allopurinoL [Zyloprim] 100 mg PO DAILY 05/05/15 [History] lisinopriL 40 mg PO DAILY 05/05/15 [History] Atorvastatin Calcium [Lipitor] 80 mg PO DAILY 06/08/18 [History] Albuterol Inhaler [Ventolin Hfa Inhaler] 2 puff INHALATION QID PRN #2 inhaler 10/15/20 [Rx] Amoxic-Pot Clav 875-125Mg [Augmentin 875-125] 1 each PO Q12HR #10 tab 10/15/20 [Rx] Budesonide [Pulmicort] 1 mg INHALATION RT-BID #2 inhaler 10/15/20 [Rx] Famotidine [Pepcid] 20 mg PO DAILY #30 tab 10/15/20 [Rx] Metoprolol Tartrate [Lopressor] 12.5 mg PO BID #60 tab 10/15/20 [Rx] Nicotine 21Mg/24Hr Patch [Habitrol] 1 patch TRANSDERM DAILY #30 patch 10/15/20 [Rx] Tamsulosin [Flomax] 0.4 mg PO PC-BRKFST #30 cap.er.24h 10/15/20 [Rx] predniSONE 10 mg PO DAILY #3 tab 10/15/20 [Rx] Follow up Appointment(s)/Referral(s): Jhonatan Ho MD [STAFF PHYSICIAN] - 10/29/20 2:30 pm Fiath Gimenez MD [STAFF PHYSICIAN] - 10/21/20 5:00 pm Leona Millan MD [Primary Care Provider] - 10/28/20 8:00 am [facility] Visiting Nurse, [NON-STAFF] - As Needed Patient Instructions/Handouts: Open Splenectomy (DC) Discharge Disposition: HOME WITH HOME HEALTH SERVICES
--- NOTE | 2020-10-16 11:53 | CDI ---
Documentation Clarification Form Date: 10/16/20 From: Donna Brock Admit Date: 09/24/2020 11:54:00 PM Patient Name: Long Cyr Visit Number: [id number] Discharge Date: 10/15/2020 12:42:00 PM ATTENTION: The Clinical Documentation Specialists (CDI) and [facility] Coding Staff appreciate your assistance in clarifying documentation. Please respond to the clarification below the line at the bottom and electronically sign. The CDI & [facility] Coding staff will review the response and follow-up if needed. Please note: Queries are made part of the Legal Health Record. If you have any questions, please contact the author of this message via ITS. Dr. Charles Baig, There is documentation of bacteremia is documented in 09/26 PN and many subsequent PNs, Dr Ho's consult, Dr Palmer's consult and DS. Bacteremia is considered a lab finding. Additional clarification regarding bacteremia is requested. Patient history/risk factors: Choledocholithiasis w acute cholecystitis w cholangitis, hypertensive heart disease, Clinical Indicators: Sepsis is documented by ED and several PNs. WBC: 17.9 Left Shift: 17.10 Lactic acid: 3.8 Lactic Acid Sepsis Reflex: Yes Blood Culture: E coli Infectious Disease Consult: E coli bacteremia Treatment: IV fluids Antibiotics: IV Zosyn, Please provide additional clarification regarding the etiology/cause and/or clinical significance of the bacteremia: [ X ] Bacteremia is related to E coli sepsis [ ] Bacteremia is due to infectious process, please specify: [ ] Bacteremia is not clinically significant [ ] Other, please specify [ ] Unable to determine MTDD
== END 2020-10-15 12:42 | disposition home health service (06) | DRG 853 ==
LOC: EC 19:58 → 3SCARD 23:54 → 2SICU 09-27 13:31 → 4SSUR 10-10 15:33
PROVIDERS: ADMIT Internal Medicine; ATTEND Internal Medicine
PROC: 0DJ08ZZ Inspection of Upper Intestinal Tract, Via Natural or Artificial Opening Endoscopic (ICD-10-PCS; 2020-09-25)
PROC: 30233N1 Transfusion of Nonautologous Red Blood Cells into Peripheral Vein, Percutaneous Approach (ICD-10-PCS; 2020-09-27)
PROC: 30233R1 Transfusion of Nonautologous Platelets into Peripheral Vein, Percutaneous Approach (ICD-10-PCS; 2020-09-27)
PROC: 3E033XZ Introduction of Vasopressor into Peripheral Vein, Percutaneous Approach (ICD-10-PCS; 2020-09-27)
PROC: 0W3P0ZZ Control Bleeding in Gastrointestinal Tract, Open Approach (ICD-10-PCS; principal; 2020-09-27 13:30)
PROC: 0DNV0ZZ Release Mesentery, Open Approach (ICD-10-PCS; principal; 2020-09-27 13:30)
PROC: 07TP0ZZ Resection of Spleen, Open Approach (ICD-10-PCS; principal; 2020-09-27 13:30)
PROC: 0DN80ZZ Release Small Intestine, Open Approach (ICD-10-PCS; principal; 2020-09-27 13:30)
PROC: 5A1945Z Respiratory Ventilation, 24-96 Consecutive Hours (ICD-10-PCS; 2020-09-27 13:30)
PROC: 5A09557 Assistance with Respiratory Ventilation, Greater than 96 Consecutive Hours, Continuous Positive Airway Pressure (ICD-10-PCS; 2020-10-03)
PROC: 02HV33Z Insertion of Infusion Device into Superior Vena Cava, Percutaneous Approach (ICD-10-PCS; 2020-10-06)
PROC: 3E0436Z Introduction of Nutritional Substance into Central Vein, Percutaneous Approach (ICD-10-PCS; 2020-10-06)
PROC: 0D9670Z Drainage of Stomach with Drainage Device, Via Natural or Artificial Opening (ICD-10-PCS; 2020-10-07)
PROC: 3E0G76Z Introduction of Nutritional Substance into Upper GI, Via Natural or Artificial Opening (ICD-10-PCS; 2020-10-07)
PROC: 3E0234Z Introduction of Serum, Toxoid and Vaccine into Muscle, Percutaneous Approach (ICD-10-PCS; 2020-10-12)
DX: A41.51 Sepsis due to Escherichia coli [E. coli] (principal); N17.0 Acute kidney failure with tubular necrosis; R57.1 Hypovolemic shock; J96.01 Acute respiratory failure with hypoxia; J69.0 Pneumonitis due to inhalation of food and vomit; K66.1 Hemoperitoneum; G92 Toxic encephalopathy; E87.2 Acidosis; F05 Delirium due to known physiological condition; E87.0 Hyperosmolality and hypernatremia; R18.8 Other ascites; K80.63 Calculus of gallbladder and bile duct with acute cholecystitis with obstruction; K80.32 Calculus of bile duct with acute cholangitis without obstruction; D62 Acute posthemorrhagic anemia; J98.11 Atelectasis; D69.6 Thrombocytopenia, unspecified; I11.9 Hypertensive heart disease without heart failure; R65.20 Severe sepsis without septic shock; I73.9 Peripheral vascular disease, unspecified; G31.9 Degenerative disease of nervous system, unspecified; Z23 Encounter for immunization; Z20.822 Contact with and (suspected) exposure to COVID-19; D73.5 Infarction of spleen; R13.10 Dysphagia, unspecified; G25.3 Myoclonus; E86.1 Hypovolemia; R33.9 Retention of urine, unspecified; K66.0 Peritoneal adhesions (postprocedural) (postinfection); E87.70 Fluid overload, unspecified; K57.10 Diverticulosis of small intestine without perforation or abscess without bleeding; K57.30 Diverticulosis of large intestine without perforation or abscess without bleeding; E78.5 Hyperlipidemia, unspecified; E83.42 Hypomagnesemia; M10.9 Gout, unspecified; F17.210 Nicotine dependence, cigarettes, uncomplicated; R47.81 Slurred speech; H91.90 Unspecified hearing loss, unspecified ear; Z79.899 Other long term (current) drug therapy; Z95.828 Presence of other vascular implants and grafts; Z87.19 Personal history of other diseases of the digestive system; Z98.890 Other specified postprocedural states; Z80.9 Family history of malignant neoplasm, unspecified
CPT/HCPCS: 36415; 36430; 36573; 36600; 43235; 70450; 71045; 74176; 74230; 76705; 80048; 80053; 81001; 82140; 82150; 82247; 82330; 82728; 82805; 83540; 83550; 83605; 83690; 83735; 84075; 84100; 84132; 84146; 84443; 84450; 84460; 84478; 84484; 85025; 85027; 85610; 86850; 86900; 86901; 86920; 87040; 87070; 87077; 87086; 87186; 87205; 88305; 90648; 90732; 90734; 93005; 93306; 94002; 94003; 94640; 94660; 94760; 95816; 96361; 96365; 99285

== ENCOUNTER 2020-10-17 17:04 | Emergency (ER) | payer MEDICARE ==
[2020-10-17 17:25] VITALS: RESP 18; TEMP 97.9
--- NOTE | 2020-10-17 19:31 | ED ---
General Adult HPI - General Chief complaint: Recheck/Abnormal Lab/Rx Stated complaint: Swelling, post spleen surgery Time Seen by Provider: 10/17/20 17:25 Source: patient, RN notes reviewed, old records reviewed Mode of arrival: ambulatory Limitations: no limitations - History of Present Illness Initial comments: I evaluated the patient when he was brought back from triage. Patient is an 85-year-old male with past medical history remarkable for recent splenectomy, as well as removal of postsurgical drains yesterday. Patient presents with family members. Since the drains were removed yesterday, patient and family have noticed some soft tissue edema lateral to the site of the removed drain over the left flank. This is painless. He denies any abdominal pain, nausea, vomiting. Denies any constipation, diarrhea. He is still passing gas. Denies any other acute complaints including fevers, chills, sick contacts, chest pain or shortness breath. Patient presents just due to the soft tissue edema. He states he is still having adequate drainage out of the site of the drain being removed. They attempted to call the surgeon who performed the surgery, and were unable to contact them and therefore they present to the emergency department for evaluation. - Related Data Home Medications Medication Instructions Recorded Confirmed allopurinoL [Zyloprim] 100 mg PO DAILY 05/05/15 09/24/20 lisinopriL 40 mg PO DAILY 05/05/15 09/24/20 Atorvastatin Calcium [Lipitor] 80 mg PO DAILY 06/08/18 09/24/20 Previous Rx's Medication Instructions Recorded Albuterol Inhaler [Ventolin Hfa 2 puff INHALATION QID PRN #2 10/15/20 Inhaler] inhaler Amoxic-Pot Clav 875-125Mg 1 each PO Q12HR #10 tab 10/15/20 [Augmentin 875-125] Budesonide [Pulmicort] 1 mg INHALATION RT-BID #2 inhaler 10/15/20 Famotidine [Pepcid] 20 mg PO DAILY #30 tab 10/15/20 Metoprolol Tartrate [Lopressor] 12.5 mg PO BID #60 tab 10/15/20 Nicotine 21Mg/24Hr Patch [Habitrol] 1 patch TRANSDERM DAILY #30 patch 10/15/20 Tamsulosin [Flomax] 0.4 mg PO PC-BRKFST #30 cap.er.24h 10/15/20 predniSONE 10 mg PO DAILY #3 tab 10/15/20 Allergies Allergy/AdvReac Type Severity Reaction Status Date / Time No Known Allergies Allergy Verified 10/17/20 17:25 Review of Systems ROS Statement: Those systems with pertinent positive or pertinent negative responses have been documented in the HPI. Review of Systems: CONST: Denies fever EYES: Denies blurry vision ENT: Denies nasal congestion C/V: Denies Chest pain RESP: Denies shortness of breath GI: Denies abdominal pain : Denies dysuria SKIN: Denies rash. MSK: Denies joint pain. NEURO: Denies headache ROS Other: All systems not noted in ROS Statement are negative. 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 LEFT LEG GRAFT History of Any Multi-Drug Resistant Organisms: None Reported Past Surgical History: Hernia Repair Additional Past Surgical History / Comment(s): AORTO-BIFEMORAL GRAFT LEFT SIDE, spleen removed Past Anesthesia/Blood Transfusion Reactions: No Reported Reaction Past Psychological History: No Psychological Hx Reported Smoking Status: Current every day smoker Past Alcohol Use History: Occasional Past Drug Use History: None Reported - Past Family History Brother(s) Family Medical History: Cancer Sister(s) Family Medical History: Cancer General Exam - General Exam Comments Initial Comments: General: Appears in no acute distress. HEAD: Normal with no signs of head trauma. EYES: PERRLA, EOMI, conjunctiva normal, no discharge. ENT: Hearing grossly intact, normal oropharynx. RESPIRATORY: Clear breath sounds bilaterally. No wheezes, rales, or rhonchi. C/V: Regular rate and rhythm. S1 and S2 auscultated, no edema, peripheral pulses 2+ and intact throughout ABD: Abdomen is soft, nontender, nondistended. There is a postsurgical's car along the midline as well as a mildly active draining all over the left lower quadrant of the abdomen with the drains were removed. This is not infectious. Patient does have some mild edema of the tissue lateral to the drain site over the left flank. This is nontender to palpation. It is colorless. No overlying skin changes. No peritoneal signs. There is no rebound tenderness. EXT: Normal range of motion, no obvious deformity SKIN: Healing midline surgical scar of the abdomen. Surgical drain site status post removal of his drains over the left lower quadrant. Soft tissue edema lateral to the left lower quadrant. NEURO: Alert and oriented 4. Limitations: no limitations Course Vital Signs 10/17/20 10/17/20 17:20 19:33 Temperature 97.9 F Pulse Rate 69 89 Respiratory 18 18 Rate Blood Pressure 144/74 138/88 O2 Sat by Pulse 97 99 Oximetry Medical Decision Making - Medical Decision Making Based on the patient's presentation and physical exam, he does appear to have a very mild post surgical complication after removal restrains. He may just have a accumulation of drainage fluid with soft tissue edema lateral to the drain site. I was able to contact the patient's surgeon, Dr. Turcios, who stated th at the patient can be discharged home with an abdominal binder and instructions to follow-up with her at his scheduled appointment on Tuesday. I did discuss this with the patient and his family members and they were in agreement of plan. Patient otherwise is asymptomatic, and I did provide them with strict return precautions if he has worsening symptoms including abdominal pain, nausea, vomiting, bleeding from the site to return to the emergency department for evaluation. There were in agreement this plan. Abdominal binder was obtained and given to the patient. He was discharged home. I instructed the patient to follow up with their PCP in the next 3 days. I instructed him to follow up with Karolina on Tuesday at the prescheduled appointment.. I explained that the patient should return to the emergency department if they experience any worsening symptoms. Strict return precautions were discussed with the patient. The patient expressed understanding of these instructions. I answered all questions that the patient had. The patient was discharged home in good condition with their prescriptions and follow up information. Disposition Clinical Impression: Status post splenectomy, Abdominal wall swelling Disposition: HOME SELF-CARE Condition: Good Is patient prescribed a controlled substance at d/c from ED?: No Referrals: Leona Millan MD [Primary Care Provider] - 1-2 days
[2020-10-17 19:35] VITALS: BP 138/88; PULSE 89
== END 2020-10-17 19:33 | disposition home or self-care (01) ==
LOC: EC 17:04
DX: R19.00 Intra-abdominal and pelvic swelling, mass and lump, unspecified site (principal); I10 Essential (primary) hypertension; E78.5 Hyperlipidemia, unspecified; M10.9 Gout, unspecified; F17.200 Nicotine dependence, unspecified, uncomplicated; Z98.890 Other specified postprocedural states; Z79.51 Long term (current) use of inhaled steroids; Z79.52 Long term (current) use of systemic steroids; Z90.81 Acquired absence of spleen
CPT/HCPCS: 99283

== ENCOUNTER 2020-10-19 18:57 | Inpatient (IN) | payer MEDICARE ==
--- NOTE | 2020-10-19 19:38 | ED ---
General Adult HPI - General Chief complaint: Weakness Stated complaint: SOB, weakness Time Seen by Provider: 10/19/20 19:13 Source: patient Mode of arrival: wheelchair Limitations: no limitations - History of Present Illness Initial comments: 85 year-old male patient presents to the emergency department for evaluation of generalized weakness and shortness of breath. Patient was admitted recently for ascending cholangitis, sepsis, blood cultures positive for e. coli. While admitted he experienced a splenic rupture and had to have open laparotomy and s plenectomy. Patient was discharged on 10/15/20. Son is present and states that patient has been getting weaker making it difficult to ambulate. State she has been dizzy. States that he was confused this morning. Was seeing someone in the room that was not there. Patient is reporting lower abdominal pain. Son states he does not take the pain medication because he "does not like pills". Patient states he is having normal bowel movements and urination. Denies any fever or chills. States he has been short of breath today, reports dry cough, and lower extremity swelling. Patient denies any recent rash, chest pain, nausea, vomiting, back pain, numbness, tingling, hematuria, dysuria, urinary urgency, urinary frequency, headache, visual changes, or any other complaints. - Related Data Home Medications Medication Instructions Recorded Confirmed allopurinoL [Zyloprim] 100 mg PO DAILY 05/05/15 10/19/20 lisinopriL 40 mg PO DAILY 05/05/15 10/19/20 Atorvastatin Calcium [Lipitor] 80 mg PO DAILY 06/08/18 10/19/20 Amoxic-Pot Clav 875-125Mg 1 tab PO Q12HR 10/19/20 10/19/20 [Augmentin 875-125] Nicotine 21Mg/24Hr Patch [Habitrol] 1 patch TRANSDERM DAILY PRN 10/19/20 10/19/20 Previous Rx's Medication Instructions Recorded Albuterol Inhaler [Ventolin Hfa 2 puff INHALATION QID PRN #2 10/15/20 Inhaler] inhaler Budesonide [Pulmicort] 1 mg INHALATION RT-BID #2 inhaler 10/15/20 Famotidine [Pepcid] 20 mg PO DAILY #30 tab 10/15/20 Metoprolol Tartrate [Lopressor] 12.5 mg PO BID #60 tab 10/15/20 Tamsulosin [Flomax] 0.4 mg PO PC-BRKFST #30 cap.er.24h 10/15/20 predniSONE 10 mg PO DAILY #3 tab 10/15/20 Allergies Allergy/AdvReac Type Severity Reaction Status Date / Time No Known Allergies Allergy Verified 10/19/20 18:59 Review of Systems ROS Statement: Those systems with pertinent positive or pertinent negative responses have been documented in the HPI. ROS Other: All systems not noted in ROS Statement are negative. 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 LEFT LEG GRAFT History of Any Multi-Drug Resistant Organisms: None Reported Past Surgical History: Hernia Repair Additional Past Surgical History / Comment(s): AORTO-BIFEMORAL GRAFT LEFT SIDE, spleen removed Past Anesthesia/Blood Transfusion Reactions: No Reported Reaction Past Psychological History: No Psychological Hx Reported Smoking Status: Current every day smoker Past Alcohol Use History: Occasional Past Drug Use History: None Reported - Past Family History Brother(s) Family Medical History: Cancer Sister(s) Family Medical History: Cancer General Exam Limitations: no limitations General appearance: alert, in no apparent distress, other (This is a well-developed, thin appearing adult male patient in no acute distress. Vital signs upon presentation are temperature 98.5F, pulse 80, respirations 16, blood pressure 119/60, pulse ox 95% on room air.) Eye exam: Present: normal appearance, PERRL, EOMI. Absent: scleral icterus, conjunctival injection, nystagmus, periorbital swelling ENT exam: Present: normal exam, normal oropharynx, mucous membranes moist Respiratory exam: Present: normal lung sounds bilaterally. Absent: respiratory distress, wheezes, rales, rhonchi, stridor Cardiovascular Exam: Present: regular rate, normal rhythm, normal heart sounds. Absent: systolic murmur, diastolic murmur, rubs, gallop, clicks GI/Abdominal exam: Present: soft, normal bowel sounds, other (midline abdominal incision, approximated with unique. No erythema or drainage noted. ). Absent: distended, tenderness, guarding, rebound, rigid Neurological exam: Present: alert, oriented X3, CN II-XII intact Psychiatric exam: Present: normal affect, normal mood Skin exam: Present: warm, dry, intact, normal color. Absent: rash Course Vital Signs 10/19/20 10/19/20 10/19/20 18:59 22:18 22:20 Temperature 98.5 F Pulse Rate 80 81 80 Respiratory 16 17 17 Rate Blood Pressure 119/60 88/42 O2 Sat by Pulse 95 98 99 Oximetry 10/19/20 10/19/20 22:25 22:38 Temperature Pulse Rate 82 79 Respiratory 18 16 Rate Blood Pressure 115/42 104/54 O2 Sat by Pulse 97 96 Oximetry Medical Decision Making - Medical Decision Making 85-year-old male patient presents to the emergency department today for evaluation of increased weakness, cough, shortness of breath. Patient recently admitted for ascending cholangitis had subsequent splenic rupture with open laparotomy and splenectomy, discharge from the hospital on 10/15/2020. Physical examination did reveal diminished lung sounds. Generalized abdominal tenderness. Vital signs were satisfactory. Labs reviewed and did reveal white blood cell count at 26.3, hemoglobin 9.1, sodium 133, potassium 3.3, BUN 21, bilirubin 3.0, AST 294, a LT 222, alk phos 69, troponin 0.055, BNP 11,500. He'll be admitted to the hospital for treatment of pneumonia and new onset CHF. We'll start vancomycin, azithromycin, Zosyn. Given Lasix. We placed potassium. Consulted cardiology and infectious disease. My attending is Dr. Mallory. - Lab Data Result diagrams: 10/19/20 19:43 10/19/20 19:43 Lab Results 10/19/20 10/19/20 10/19/20 Range/Units 19:43 19:43 19:43 WBC 26.3 H (3.8-10.6) k/uL RBC 2.88 L (4.30-5.90) m/uL Hgb 9.1 L (13.0-17.5) gm/dL Hct 26.6 L (39.0-53.0) % MCV 92.4 (80.0-100.0) fL MCH 31.5 (25.0-35.0) pg MCHC 34.1 (31.0-37.0) g/dL RDW 18.5 H (11.5-15.5) % Plt Count 187 (150-450) k/uL MPV 9.9 Neutrophils % 97 % Lymphocytes % 1 % Monocytes % 1 % Eosinophils % 1 % Basophils % 0 % Neutrophils # 25.5 H (1.3-7.7) k/uL Lymphocytes # 0.3 L (1.0-4.8) k/uL Monocytes # 0.3 (0-1.0) k/uL Eosinophils # 0.2 (0-0.7) k/uL Basophils # 0.0 (0-0.2) k/uL Anisocytosis Slight PT 10.7 (9.0-12.0) sec INR 1.0 (<1.2) APTT 19.9 L (22.0-30.0) sec Sodium 133 L (137-145) mmol/L Potassium 3.3 L (3.5-5.1) mmol/L Chloride 107 (98-107) mmol/L Carbon Dioxide 22 (22-30) mmol/L Anion Gap 4 mmol/L BUN 21 H (9-20) mg/dL Creatinine 0.93 (0.66-1.25) mg/dL Est GFR (CKD-EPI)AfAm 88 (>60 ml/min/1.73 sqM) Est GFR (CKD-EPI)NonAf 76 (>60 ml/min/1.73 sqM) Glucose 81 (74-99) mg/dL Plasma Lactic Acid Nima (0.7-2.0) mmol/L Calcium 7.7 L (8.4-10.2) mg/dL Magnesium 1.7 (1.6-2.3) mg/dL Total Bilirubin 3.0 H (0.2-1.3) mg/dL AST 294 H (17-59) U/L ALT 222 H (4-49) U/L Alkaline Phosphatase 659 H (38-126) U/L Troponin I (0.000-0.034) ng/mL NT-Pro-B Natriuret Pep pg/mL Total Protein 4.1 L (6.3-8.2) g/dL Albumin 2.0 L (3.5-5.0) g/dL 10/19/20 10/19/20 10/19/20 Range/Units 19:43 19:43 19:43 WBC (3.8-10.6) k/uL RBC (4.30-5.90) m/uL Hgb (13.0-17.5) gm/dL Hct (39.0-53.0) % MCV (80.0-100.0) fL MCH (25.0-35.0) pg MCHC (31.0-37.0) g/dL RDW (11.5-15.5) % Plt Count (150-450) k/uL MPV Neutrophils % % Lymphocytes % % Monocytes % % Eosinophils % % Basophils % % Neutrophils # (1.3-7.7) k/uL Lymphocytes # (1.0-4.8) k/uL Monocytes # (0-1.0) k/uL Eosinophils # (0-0.7) k/uL Basophils # (0-0.2) k/uL Anisocytosis PT (9.0-12.0) sec INR (<1.2) APTT (22.0-30.0) sec Sodium (137-145) mmol/L Potassium (3.5-5.1) mmol/L Chloride (98-107) mmol/L Carbon Dioxide (22-30) mmol/L Anion Gap mmol/L BUN (9-20) mg/dL Creatinine (0.66-1.25) mg/dL Est GFR (CKD-EPI)AfAm (>60 ml/min/1.73 sqM) Est GFR (CKD-EPI)NonAf (>60 ml/min/1.73 sqM) Glucose (74-99) mg/dL Plasma Lactic Acid Nima 1.2 (0.7-2.0) mmol/L Calcium (8.4-10.2) mg/dL Magnesium (1.6-2.3) mg/dL Total Bilirubin (0.2-1.3) mg/dL AST (17-59) U/L ALT (4-49) U/L Alkaline Phosphatase (38-126) U/L Troponin I 0.055 H* (0.000-0.034) ng/mL NT-Pro-B Natriuret Pep 37143 pg/mL Total Protein (6.3-8.2) g/dL Albumin (3.5-5.0) g/dL - EKG Data -: EKG Interpreted by Nh EKG Comments: EKG obtained at 1938 shows sinus rhythm with a ventricular rate of 76, WV interval 136, QRS duration 84, QT 394, QTC 443. No evidence of ST elevation or depression. Disposition Clinical Impression: Pneumonia, New onset of congestive heart failure, Transaminitis, Hyperbilirubinemia, Elevated troponin Disposition: ADMITTED IP TO THIS [facility] Condition: Serious Decision to Admit Reason: Admit from EC Decision Date: 10/19/20 Decision Time: 21:47
[2020-10-19 20:17] LABS: Anisocytosis Slight; Basophils % (A) 0 %; Eosinophils # (A) 0.2 k/uL (0-0.7); Eosinophils % (A) 1 %; HCT 26.6 % (39.0-53.0); HGB 9.1 gm/dL (13.0-17.5); Lymphocytes # (A) 0.3 k/uL (1.0-4.8); Lymphocytes % (A) 1 %; MCH 31.5 pg (25.0-35.0); MCHC 34.1 g/dL (31.0-37.0); MCV 92.4 fL (80.0-100.0); Mean Platelet Volume 9.9; Monocytes # (A) 0.3 k/uL (0-1.0); Monocytes % (A) 1 %; Neutrophils # (A) 25.5 k/uL (1.3-7.7); Neutrophils % (A) 97 %; Platelet Count 187 k/uL (150-450); RBC 2.88 m/uL (4.30-5.90); RDW 18.5 % (11.5-15.5); WBC 26.3 k/uL (3.8-10.6)
[2020-10-19 20:25] LABS: Prothrombin Time 10.7 sec (9.0-12.0)
--- NOTE | 2020-10-19 20:25 | XR ---
EXAMINATION TYPE: XR chest 2V DATE OF EXAM: 10/19/2020 COMPARISON: 10/13/2020 HISTORY: Weakness TECHNIQUE: FINDINGS: There is airspace infiltrate left lower lobe. There is some pulmonary vascular congestion. There is bilateral blunting of the costophrenic angles. IMPRESSION: Left lower lobe pneumonia increased compared to old exam. There is new pulmonary congesti on and consistent with new heart failure..
[2020-10-19 20:32] LABS: Calcium 7.7 mg/dL (8.4-10.2); Magnesium 1.7 mg/dL (1.6-2.3); Potassium 3.3 mmol/L (3.5-5.1); Total Protein 4.1 g/dL (6.3-8.2)
[2020-10-19] MEDS ORDERED: FUROSEMIDE 10 MG/ML 4 ML VIAL IV STA (20:55)
[2020-10-19] MEDS ORDERED: MORPHINE SULFATE 4 MG/ML SYRINGE IVP STA (20:57)
[2020-10-19] MEDS ORDERED: ONDANSETRON 4 MG/2 ML VIAL IVP STA (20:57)
[2020-10-19] MEDS ORDERED: PIPERACILLIN-TAZOBACTAM 3.375 GM in SODIUM CHLORIDE 0.9% 100 ML IVPB ONE (21:00)
[2020-10-19 21:06] LABS: Partial Thromboplastin Time 19.9 sec (22.0-30.0)
[2020-10-19] MEDS ORDERED: VANCOMYCIN IV PER PHARMACY 1 EACH MISC MISCELLANE PRN (21:26)
[2020-10-19] MEDS ORDERED: AZITHROMYCIN 500 MG in SODIUM CHLORIDE 0.9% 250 ML IVPB ONE (21:30)
[2020-10-19] MEDS: POTASSIUM CHLORIDE ER 20 MEQ TAB.ER PO SCH (21:30)
[2020-10-19] MEDS ORDERED: NALOXONE 0.4 MG/ML 1 ML VIAL IV PRN (21:44)
[2020-10-19] MEDS ORDERED: MORPHINE SULFATE 4 MG/ML SYRINGE IV PRN (21:44)
[2020-10-19] MEDS ORDERED: VANCOMYCIN 1,000 MG in SODIUM CHLORIDE 0.9% 250 ML IVPB ONE (22:00)
[2020-10-19] MEDS ORDERED: IPRATROPIUM-ALBUTEROL 3 ML NEB INHALATION PRN (23:40)
--- NOTE | 2020-10-20 01:14 | P.HPIM ---
History of Present Illness H&P Date: 10/19/20 Chief Complaint: confusion, abd pain 85 year old male with hypertension , recent splenectomy , gall stones patient comes in 4 days after discharge. he was admitted for acute ascending cholangitis treated with antibiotics, surgery was deferred due to complicated hospital stay where patient had ruptured spleen treated with splenectomy, and surgery was planning on outpatient scheduling of sayra chen, once patient follows up after discharge. patient unable to provide any meaningful history as he seems sleepy and tired. patient girlfriend gives the history , she reports that he was doing well after discharge, walking with a walker, however, today he seemed to be more sick, complaining of central abd pain and seemed to be more confused, there is no report of fever, chills, nausea or vomiting, no report of GI bleeding, or urinary changes. he continues to have bowel movements. patient family also reports some confusion , and trouble breathing, but no coughing no phlegm production. no chest pain reported. blood work showed , worsening of liver enzymes with picture of obstructive jaundice and elevated liver enzymes, elevated WBC hemoglobin and platelets are stable patient is known to have gall stones. CXR showed pulmonary congestion Review of Systems Pertinent positives as noted in HPI. All other systems were reviewed and are negative Past Medical History Past Medical History: Hyperlipidemia, Hypertension, Vascular Disorder Additional Past Medical History / Comment(s): GOUT, STATES PAST HX OF OCCLUDED CIRCULATION TO LEGS. LEFT LEG GRAFT History of Any Multi-Drug Resistant Organisms: None Reported Past Surgical History: Hernia Repair Additional Past Surgical History / Comment(s): AORTO-BIFEMORAL GRAFT LEFT SIDE, spleen removed Past Anesthesia/Blood Transfusion Reactions: No Reported Reaction Past Psychological History: No Psychological Hx Reported Smoking Status: Current every day smoker Past Alcohol Use History: Occasional Past Drug Use History: None Reported - Past Family History Brother(s) Family Medical History: Cancer Sister(s) Family Medical History: Cancer Medications and Allergies Home Medications Medication Instructions Recorded Confirmed Type allopurinoL [Zyloprim] 100 mg PO DAILY 05/05/15 10/19/20 History lisinopriL 40 mg PO DAILY 05/05/15 10/19/20 History Atorvastatin Calcium [Lipitor] 80 mg PO DAILY 06/08/18 10/19/20 History Albuterol Inhaler [Ventolin Hfa 2 puff INHALATION QID PRN #2 10/15/20 10/19/20 Rx Inhaler] inhaler Budesonide [Pulmicort] 1 mg INHALATION RT-BID #2 inhaler 10/15/20 10/19/20 Rx Famotidine [Pepcid] 20 mg PO DAILY #30 tab 10/15/20 10/19/20 Rx Metoprolol Tartrate [Lopressor] 12.5 mg PO BID #60 tab 10/15/20 10/19/20 Rx Tamsulosin [Flomax] 0.4 mg PO PC-BRKFST #30 cap.er.24h 10/15/20 10/19/20 Rx predniSONE 10 mg PO DAILY #3 tab 10/15/20 10/19/20 Rx Amoxic-Pot Clav 875-125Mg 1 tab PO Q12HR 10/19/20 10/19/20 History [Augmentin 875-125] Nicotine 21Mg/24Hr Patch [Habitrol] 1 patch TRANSDERM DAILY PRN 10/19/20 10/19/20 History Allergies Allergy/AdvReac Type Severity Reaction Status Date / Time No Known Allergies Allergy Verified 10/19/20 18:59 Physical Exam Vitals: Vital Signs Temp Pulse Resp BP Pulse Ox 10/19/20 18:59 98.5 F 80 16 119/60 95 Intake and Output 10/19/20 10/19/20 10/19/20 06:59 14:59 22:59 Other: Weight 46.72 kg Constitutional: No acute distress, patient sleeping wakes up to verbal stimulation but drifts back sleep, he is cooperative with physical exam Eyes: Anicteric sclerae, moist conjunctiva, Pupils equal round reactive to light ENMT: NC/AT Oropharynx clear, no erythema, or exudates Neck: Supple, FROM, no masses, or JVD No carotid bruits No thyromegaly Lungs: decrease breath sounds at lung basis Clear to percussion Normal respiratory effort, no accessory muscle use Cardiovascular: Heart regular in rate and rhythm, No murmurs, gallops, or rubs + 1 bilateral peripheral edema Abdominal: Soft slight tenderness to deep plapation of abd over the umblical region , no guarding, rebound or rigidity slight induration and erythema around drain sight of prior surgery Abdomen moving with respiration Normoactive bowel sounds No hepatomegaly, No splenomegaly No palpable mass No abdominal wall hernia noted Skin: Normal temperature, tone, texture, turgor No induration No subcutaneous nodules No rash, lesions No ulcers Extremities: No digital cyanosis No clubbing Pedal pulses intact and symmetrical Radial pulses intact and symmetrical No calf tenderness Psychiatric: sleepy but arousable , oriented to self and place Neuro Muscles Strength 4/5 in all 4 extremities Sensation to light touch grossly present throughout Cranial nerves II-XII grossly intact No focal sensory deficits Lymphatics: no palpable cervical or supraclavicular , or inguinal lymph nodes Results CBC & Chem 7: 10/19/20 19:43 10/19/20 19:43 Labs: Abnormal Lab Results - Last 24 Hours (Table) 10/19/20 10/19/20 10/19/20 Range/Units 19:43 19:43 19:43 WBC 26.3 H (3.8-10.6) k/uL RBC 2.88 L (4.30-5.90) m/uL Hgb 9.1 L (13.0-17.5) gm/dL Hct 26.6 L (39.0-53.0) % RDW 18.5 H (11.5-15.5) % Neutrophils # 25.5 H (1.3-7.7) k/uL Lymphocytes # 0.3 L (1.0-4.8) k/uL APTT 19.9 L (22.0-30.0) sec Sodium 133 L (137-145) mmol/L Potassium 3.3 L (3.5-5.1) mmol/L BUN 21 H (9-20) mg/dL Calcium 7.7 L (8.4-10.2) mg/dL Total Bilirubin 3.0 H (0.2-1.3) mg/dL AST 294 H (17-59) U/L ALT 222 H (4-49) U/L Alkaline Phosphatase 659 H (38-126) U/L Troponin I (0.000-0.034) ng/mL Total Protein 4.1 L (6.3-8.2) g/dL Albumin 2.0 L (3.5-5.0) g/dL 10/19/20 Range/Units 19:43 WBC (3.8-10.6) k/uL RBC (4.30-5.90) m/uL Hgb (13.0-17.5) gm/dL Hct (39.0-53.0) % RDW (11.5-15.5) % Neutrophils # (1.3-7.7) k/uL Lymphocytes # (1.0-4.8) k/uL APTT (22.0-30.0) sec Sodium (137-145) mmol/L Potassium (3.5-5.1) mmol/L BUN (9-20) mg/dL Calcium (8.4-10.2) mg/dL Total Bilirubin (0.2-1.3) mg/dL AST (17-59) U/L ALT (4-49) U/L Alkaline Phosphatase (38-126) U/L Troponin I 0.055 H* (0.000-0.034) ng/mL Total Protein (6.3-8.2) g/dL Albumin (3.5-5.0) g/dL Assessment and Plan Assessment: acute metabolic encephalopathy ascending cholangitis h/o splenectomy rule out new congestive heart failure chronic anemia BPH plan follow up cultures CXR reviewed chck echocardiogram cardiology consult trend trops diuretics empiric antibiotics with zosyn and vanco follow up labs ID consult GI consult check abd US to assess liver trend liver enzymes hold BP meds due ot hypotension hold statin due to elevated liver enzymes Preformed a thorough record review from recent hospitalization as summarized in HPI CODE STATUS:full code DVT prophylaxis: heparin sc tid Discussed with: Patient, ER, RN Anticipated length of stay > than [address]: pending clinical course A total of 70 minutes was spent on the care of this complex patient more than 50% of the time was spent in counseling and care coordination.
[2020-10-20] MEDS: HEPARIN SODIUM,PORCINE/PF 5,000 UNIT/0.5 ML SYRINGE SQ SCH ×3 (03:03→19:10)
[2020-10-20 04:33] LABS: Anisocytosis Slight; Basophils % (A) 0 %; Eosinophils % (A) 0 %; HCT 24.8 % (39.0-53.0); Hypochromasia Slight; Lymphocytes # (A) 0.7 k/uL (1.0-4.8); Lymphocytes % (A) 2 %; MCH 30.6 pg (25.0-35.0); MCHC 32.5 g/dL (31.0-37.0); MCV 94.2 fL (80.0-100.0); Macrocytosis Slight; Mean Platelet Volume 9.7; Monocytes # (A) 0.5 k/uL (0-1.0); Monocytes % (A) 2 %; Neutrophils % (A) 96 %; Platelet Count 163 k/uL (150-450); RBC 2.63 m/uL (4.30-5.90); RDW 18.5 % (11.5-15.5); WBC 32.3 k/uL (3.8-10.6)
[2020-10-20 04:47] LABS: Albumin 1.8 g/dL (3.5-5.0); Calcium 7.3 mg/dL (8.4-10.2); Potassium 3.6 mmol/L (3.5-5.1); Total Bilirubin 2.9 mg/dL (0.2-1.3); Total Protein 3.6 g/dL (6.3-8.2)
[2020-10-20] MEDS: POTASSIUM CHLORIDE ER 20 MEQ TAB.ER PO SCH ×2 (04:50→11:23)
[2020-10-20] MEDS: PIPERACILLIN-TAZOBACTAM 3.375 GM in SODIUM CHLORIDE 0.9% 100 ML IVPB SCH ×2 (08:10→14:50)
[2020-10-20] MEDS: TAMSULOSIN 0.4 MG CAP.ER.24H PO SCH (08:13)
[2020-10-20 08:31] LABS: Appearance,Urine Clear (Clear); Bilirubin,Urine Negative (Negative); Blood,Urine Negative (Negative); Color,Urine Yellow; Glucose,Urine (UA) Negative (Negative); Hyaline Casts,Urine 3 /lpf (0-2); Ketones,Urine Negative (Negative); Leukocyte Esterase,Urine Negative (Negative); Nitrite,Urine Negative (Negative); Protein,Urine 1+ (Negative); RBC,Urine 1 /hpf (0-5); Specific Gravity,Urine 1.009 (1.001-1.035); Urobilinogen,Urine <2.0 mg/dL (<2.0); WBC,Urine 1 /hpf (0-5)
--- NOTE | 2020-10-20 08:50 | US ---
EXAMINATION TYPE: US liver DATE OF EXAM: 10/20/2020 COMPARISON: CT 10/05/2020 CLINICAL HISTORY: 85-year-old male worsening liver enzyme, obstructive jaundice, evaluate for gallsto jennifer. TECHNIQUE: Multiple sonographic images of the right upper quadrant are obtained. FINDINGS: Gum Machine Operator notes: Difficult exam due to overlying bowel gas. EXAM MEASUREMENTS: Liver Length: 12.4 cm Gallbladder Wall: 0.4 cm CBD: 0.9 cm Right Kidney: 9.2 x 5.1 x 4.4 cm Pancreas: Obscured by bowel gas Liver: Limited visualization. Small amount of free fluid visualized adjacent to the liver. Gallbladder: Multiple stones visualized. Gallbladder is hydropic. Mild wall thickening is noted. Evidence for sonographic Ugalde's sign: No CBD: Dilated. Possible 1 cm stone visualized within distal portion. Right Kidney: Mild pelvicaliectasis. IMPRESSION: 1. Ultrasound findings indicate choledocholithiasis with a 1 cm calculus in the lower bile duct. Bile duct dilated to 9 mm. ERCP may be needed. 2. Hydropic gallbladder with cholelithiasis. There is nonspecific mild wall thickening as well but so nographic Ugalde sign is absent at this time. 3. Short interval follow-up to exclude developing right-sided hydronephrosis.
[2020-10-20] MEDS: FUROSEMIDE 10 MG/ML 2 ML VIAL IV SCH ×2 (11:23→21:17)
[2020-10-20] MEDS: METOPROLOL TARTRATE 12.5 MG TAB PO SCH ×2 (11:23→21:15)
--- NOTE | 2020-10-20 12:12 | P.GSCN ---
History of Present Illness Consult date: 10/20/20 History of present illness: CHIEF COMPLAINT: Abdominal pain HISTORY OF PRESENT ILLNESS: This is an 85-year-old male who was recently discharged on 10/15/2020 he had prolonged hospitalization with acute ascending cholangitis, bacteremia and ruptured spleen requiring emergent splenectomy. Patient had a failed ERCP attempt during his last admission. His cholecystectom y was deferred at that time. Patient presented back to the hospital with complaints of right upper quadrant abdominal pain and weakness. Abdominal ultrasound findings indicate choledocholithiasis with a 1 cm calculus in the lower bile duct. Bile duct dilated at 9 mm. ERCP may be needed. Hydropic gallbladder with cholelithiasis. There is nonspecific mild wall thickening. His white count is elevated at 32.3 and his LFTs and total bilirubin are elevated. Patient also had findings of CHF. ER has started him on IV Lasix. And cardiology is following. Surgical service consultation for gallstones. PAST MEDICAL HISTORY: See list. PAST SURGICAL HISTORY: See list. MEDICATIONS: See list. ALLERGIES: See list. SOCIAL HISTORY: No illicit drug use. REVIEW OF SYSTEMS: CONSTITUTIONAL: Denies fever or chills. HEENT: Denies blurred vision, vision changes, or eye pain. Denies hemoptysis ENDOCRINE: Denies heat or cold intolerance. CARDIOVASCULAR: Denies chest pain or pressure. RESPIRATORY: No shortness of breath. GASTROINTESTINAL: Denies abdominal pain. Denies nausea or vomiting. NEURO: Denies history of seizures. PSYCH: No depression or suicidal ideation HEMATOLOGIC: Denies bleeding disorders. LYMPHATIC: The patient denies any lumps and bumps around the neck. GENITOURINARY: Denies any blood in urine or increased urinary frequency. MUSCULOSKELETAL: Denies myalgias. Denies joint swelling. Denies decreased range of motion beyond patients baseline. SKIN: Denies pruitis. Denies rash. PHYSICAL EXAM: VITAL SIGNS: Reviewed GENERAL: Well-developed in no acute distress. HEENT: No sclera icterus. Extraocular movements grossly intact. Moist buccal mucosa. Head is atraumatic, normocephalic. Hears conversational speech. No nasal drainage. NECK: Supple without lymphadenopathy. CHEST: Non-labored respirations and equal bilateral excursions. CARDIOVASCULAR: Palpable 2+ radial pulses. ABDOMEN: Soft. Nondistended. No signs of peritonitis MUSCULOSKELETAL: No clubbing or cyanosis. NEUROLOGIC: No focal or lateralizing signs. Cranial nerves II through XII gr ossly intact. PSYCH: Appropriate affect. Alert and oriented to person, place and time. SKIN: Well perfused. Good skin turgor. LABORATORY DATA: WBC 32.3 hemoglobin 8.0 platelets 163 sodium 137 potassium is 3.6 creatinine 1.10 Total bilirubin 3.0 down to 2.9 AST 294 down to 172 ALT 222 down to 178 alk phos 659 down to 503 Elevated troponins BNP 11,500 IMAGING: Ultrasound findings as stated above Chest x-ray left lower lobe pneumonia increased compared to old exam. There is new pulmonary congestion and consistent with new heart failure. ASSESSMENT: 1. Ascending cholangitis 2. Choledocholithiasis 3. Symptomatic cholelithiasis 4. History of acute splenic rupture status post splenectomy 5. Congestive heart failure exacerbation PLAN: -GI service at this facility were unable to complete ERCP. Recommend transfer to [facility] -No surgical intervention planned -Continue supportive care -Continue antibiotics Thank you for this consultation Physician [employer] [facility] note has been reviewed by physician. Signing provider agrees with the documented findings, assessment, and plan of care. Past Medical History Past Medical History: COPD, Hyperlipidemia, Hypertension, Pneumonia, Prostate Disorder, Vascular Disorder Additional Past Medical History / Comment(s): Pt recently admitted to [facility] on 09/24/20 with acute ascending cholangitis with E coli bacteremia, acute respiratory failure 2ndary to aspiration pneumonia, urinary retention, slenic rupture with acute blood loss anemia. 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 Past Anesthesia/Blood Transfusion Reactions: No Reported Reaction Additional Past Anesthesia/Blood Transfusion Reaction / Comm: Patient has received blood without reaction. Smoking Status: Current every day smoker, Light tobacco smoker - Past Family History Brother(s) Family Medical History: Cancer Additional Family Medical History / Comment(s): Unknown type Sister(s) Family Medical History: Cancer Additional Family Medical History / Comment(s): Unknown type Mother Additional Family Medical History / Comment(s): Mother in her 60's from heart disease Medications and Allergies Home Medications Medication Instructions Recorded Confirmed Type allopurinoL [Zyloprim] 100 mg PO DAILY 05/05/15 10/19/20 History lisinopriL 40 mg PO DAILY 05/05/15 10/19/20 History Atorvastatin Calcium [Lipitor] 80 mg PO DAILY 06/08/18 10/19/20 History Albuterol Inhaler [Ventolin Hfa 2 puff INHALATION QID PRN #2 10/15/20 10/19/20 Rx Inhaler] inhaler Budesonide [Pulmicort] 1 mg INHALATION RT-BID #2 inhaler 10/15/20 10/19/20 Rx Famotidine [Pepcid] 20 mg PO DAILY #30 tab 10/15/20 10/19/20 Rx Metoprolol Tartrate [Lopressor] 12.5 mg PO BID #60 tab 10/15/20 10/19/20 Rx Tamsulosin [Flomax] 0.4 mg PO PC-BRKFST #30 cap.er.24h 10/15/20 10/19/20 Rx predniSONE 10 mg PO DAILY #3 tab 10/15/20 10/19/20 Rx Amoxic-Pot Clav 875-125Mg 1 tab PO Q12HR 10/19/20 10/19/20 History [Augmentin 875-125] Nicotine 21Mg/24Hr Patch [Habitrol] 1 patch TRANSDERM DAILY PRN 10/19/20 0 10/19/20 History Allergies Allergy/AdvReac Type Severity Reaction Status Date / Time No Known Allergies Allergy Verified 10/19/20 18:59 Surgical - Exam Vital Signs Temp Pulse Resp BP Pulse Ox 98.5 F 80 16 119/60 95 10/19/20 18:59 10/19/20 18:59 10/19/20 18:59 10/19/20 18:59 10/19/20 18:59 Results - Labs 10/20/20 03:35 10/20/20 03:35 Abnormal Lab Results - Last 24 Hours (Table) 10/19/20 10/19/20 10/19/20 Range/Units 19:43 19:43 19:43 WBC 26.3 H (3.8-10.6) k/uL RBC 2.88 L (4.30-5.90) m/uL Hgb 9.1 L (13.0-17.5) gm/dL Hct 26.6 L (39.0-53.0) % RDW 18.5 H (11.5-15.5) % Neutrophils # 25.5 H (1.3-7.7) k/uL Lymphocytes # 0.3 L (1.0-4.8) k/uL APTT 19.9 L (22.0-30.0) sec Sodium 133 L (137-145) mmol/L Potassium 3.3 L (3.5-5.1) mmol/L Chloride (98-107) mmol/L BUN 21 H (9-20) mg/dL Glucose (74-99) mg/dL Calcium 7.7 L (8.4-10.2) mg/dL Total Bilirubin 3.0 H (0.2-1.3) mg/dL AST 294 H (17-59) U/L ALT 222 H (4-49) U/L Alkaline Phosphatase 659 H (38-126) U/L Troponin I (0.000-0.034) ng/mL Total Protein 4.1 L (6.3-8.2) g/dL Albumin 2.0 L (3.5-5.0) g/dL Urine Protein (Negative) Hyaline Casts (0-2) /lpf 10/19/20 10/20/20 10/20/20 Range/Units 19:43 00:12 03:35 WBC (3.8-10.6) k/uL RBC (4.30-5.90) m/uL Hgb (13.0-17.5) gm/dL Hct (39.0-53.0) % RDW (11.5-15.5) % Neutrophils # (1.3-7.7) k/uL Lymphocytes # (1.0-4.8) k/uL APTT (22.0-30.0) sec Sodium (137-145) mmol/L Potassium (3.5-5.1) mmol/L Chloride (98-107) mmol/L BUN (9-20) mg/dL Glucose (74-99) mg/dL Calcium (8.4-10.2) mg/dL Total Bilirubin (0.2-1.3) mg/dL AST (17-59) U/L ALT (4-49) U/L Alkaline Phosphatase (38-126) U/L Troponin I 0.055 H* 0.076 H* 0.071 H* (0.000-0.034) ng/mL Total Protein (6.3-8.2) g/dL Albumin (3.5-5.0) g/dL Urine Protein (Negative) Hyaline Casts (0-2) /lpf 10/20/20 10/20/20 10/20/20 Range/Units 03:35 03:35 08:18 WBC 32.3 H (3.8-10.6) k/uL RBC 2.63 L (4.30-5.90) m/uL Hgb 8.0 L (13.0-17.5) gm/dL Hct 24.8 L (39.0-53.0) % RDW 18.5 H (11.5-15.5) % Neutrophils # 31.0 H (1.3-7.7) k/uL Lymphocytes # 0.7 L (1.0-4.8) k/uL APTT (22.0-30.0) sec Sodium (137-145) mmol/L Potassium (3.5-5.1) mmol/L Chloride 108 H (98-107) mmol/L BUN (9-20) mg/dL Glucose 73 L (74-99) mg/dL Calcium 7.3 L (8.4-10.2) mg/dL Total Bilirubin 2.9 H (0.2-1.3) mg/dL AST 172 H (17-59) U/L ALT 178 H (4-49) U/L Alkaline Phosphatase 503 H (38-126) U/L Troponin I (0.000-0.034) ng/mL Total Protein 3.6 L (6.3-8.2) g/dL Albumin 1.8 L (3.5-5.0) g/dL Urine Protein 1+ H (Negative) Hyaline Casts 3 H (0-2) /lpf Diabetes panel 10/19/20 10/20/20 Range/Units 19:43 03:35 Sodium 133 L 137 (137-145) mmol/L Potassium 3.3 L 3.6 (3.5-5.1) mmol/L Chloride 107 108 H (98-107) mmol/L Carbon Dioxide 22 22 (22-30) mmol/L BUN 21 H 20 (9-20) mg/dL Creatinine 0.93 1.10 (0.66-1.25) mg/dL Glucose 81 73 L (74-99) mg/dL Calcium 7.7 L 7.3 L (8.4-10.2) mg/dL AST 294 H 172 H (17-59) U/L ALT 222 H 178 H (4-49) U/L Alkaline Phosphatase 659 H 503 H (38-126) U/L Total Protein 4.1 L 3.6 L (6.3-8.2) g/dL Albumin 2.0 L 1.8 L (3.5-5.0) g/dL Calcium panel 10/19/20 10/20/20 Range/Units 19:43 03:35 Calcium 7.7 L 7.3 L (8.4-10.2) mg/dL Albumin 2.0 L 1.8 L (3.5-5.0) g/dL Pituitary panel 10/19/20 10/20/20 Range/Units 19:43 03:35 Sodium 133 L 137 (137-145) mmol/L Potassium 3.3 L 3.6 (3.5-5.1) mmol/L Chloride 107 108 H (98-107) mmol/L Carbon Dioxide 22 22 (22-30) mmol/L BUN 21 H 20 (9-20) mg/dL Creatinine 0.93 1.10 (0.66-1.25) mg/dL Glucose 81 73 L (74-99) mg/dL Calcium 7.7 L 7.3 L (8.4-10.2) mg/dL Adrenal panel 10/19/20 10/20/20 Range/Units 19:43 03:35 Sodium 133 L 137 (137-145) mmol/L Potassium 3.3 L 3.6 (3.5-5.1) mmol/L Chloride 107 108 H (98-107) mmol/L Carbon Dioxide 22 22 (22-30) mmol/L BUN 21 H 20 (9-20) mg/dL Creatinine 0.93 1.10 (0.66-1.25) mg/dL Glucose 81 73 L (74-99) mg/dL Calcium 7.7 L 7.3 L (8.4-10.2) mg/dL Total Bilirubin 3.0 H 2.9 H (0.2-1.3) mg/dL AST 294 H 172 H (17-59) U/L ALT 222 H 178 H (4-49) U/L Alkaline Phosphatase 659 H 503 H (38-126) U/L Total Protein 4.1 L 3.6 L (6.3-8.2) g/dL Albumin 2.0 L 1.8 L (3.5-5.0) g/dL
--- NOTE | 2020-10-20 12:17 | ECHOF ---
Referral Reason:new onset CHF MEASUREMENTS -------- HEIGHT: 152.4 cm WEIGHT: 46.7 kg BP: 121/46 IVSd: 0.9 cm (0.6 - 1.1) LVIDd: 2.8 cm (3.9 - 5.3) LVPWd: 1.4 cm (0.6 - 1.1) IVSs: 1.7 cm LVIDs: 1.5 cm LVPWs: 1.8 cm LAESV Index (A-L): 31.65 ml/m Ao Diam: 3.2 cm (2.0 - 3.7) AV Cusp: 0.8 cm (1.5 - 2.6) LA Diam: 3.6 cm (2.7 - 3.8) MV EXCURSION: 15.965 mm (> 18.000) MV EF SLOPE: 118 mm/s (70 - 150) EPSS: 0.7 cm MV E Yoni: 0.94 m/s MV DecT: 226 ms MV A Yoni: 0.97 m/s MV E/A Ratio: 0.97 AV maxP.14 mmHg AV meanP.20 mmHg AR PHT: 1054 ms RAP: 5.00 mmHg RVSP: 31.05 mmHg FINDINGS -------- This was a technically good study. The left ventricular size is normal. There is mild concentric left ventricular hypertrophy. Overa ll left ventricular systolic function is normal with, an EF between 55 - 60 %. Normal LAP Grade 1 D iastolic Dysfunction. The right ventricle is normal in size. LA is midly dilated 29-33ml/m2. The right atrial size is normal. Aortic valve is trileaflet and is mildly thickened. There is mild aortic regurgitation. There is mild aortic stenosis present. Peak/mean gradient across the Aortic Valve is 16.14mmHg / 10.20mmHg. The mitral valve is normal. The mitral valve leaflets are mildly thickened. Mild mitral annular c alcification present. Mild mitral regurgitation is present. The tricuspid valve appears structurally normal. Mild tricuspid regurgitation present. Right vent ricular systolic pressure is normal at < 35 mmHg. There is no pulmonic regurgitation present. The aortic root size is normal. IVC Not well visulized. There is a trivial pericardial effusion present. Large Pleural Effusion. CONCLUSIONS -------- 1. The left ventricular size is normal. 2. There is mild concentric left ventricular hypertrophy. 3. Overall left ventricular systolic function is normal with, an EF between 55 - 60 %. 4. Normal LAP Grade 1 Diastolic Dysfunction. 5. LA is midly dilated 29-33ml/m2. 6. Aortic valve is trileaflet and is mildly thickened. 7. There is mild aortic regurgitation. 8. There is mild aortic stenosis present. 9. Peak/mean gradient across the Aortic Valve is 16.14mmHg / 10.20mmHg. 10. The mitral valve leaflets are mildly thickened. 11. Mild mitral annular calcification present. 12. Mild mitral regurgitation is present. 13. Mild tricuspid regurgitation present. 14. There is a trivial pericardial effusion present. 15. Large Pleural Effusion. LANDSCAPE ARTIST: Maritza Bartlett RDCS
--- NOTE | 2020-10-20 13:50 | CONS ---
CONSULTATION HISTORY OF PRESENT ILLNESS: This is 85-year-old gentleman who came into the emergency room for evaluation of generalized weakness and shortness of breath. He was recently hospitalized for an ascending cholangitis and sepsis with positive blood cultures. While he was in the hospital on September 27 also, he developed a sudden drop in hemoglobin with abdominal pain, was diagnosed with splenic rupture, underwent surgery with splenectomy and evacuation of hematoma. He was supposed to come back and follow up for his ascending cholangitis which was treated medically. He is here with complaints of generalized weakness, shortness of breath. There is a significantly elevated white count and mild troponin elevation and all 3 numbers of the troponin are flat. I was asked to see him mainly for an elevated troponin and possible heart failure. The patient is resting comfortably, not a very good historian. Has no chest pain. Complains of mild abdominal discomfort, some shortness of breath. No symptoms of chest pain at this time. His most important concerning thing is he is very weak, has no energy. PAST MEDICAL HISTORY: 1. Recent splenectomy for ruptured spleen. 2. Hypertension. 3. Hyperlipidemia. 4. No documented evidence of any prior [place]. 5. There is a question of some vascular surgery in the past. Echocardiogram from the revealed normal systolic function with mild gradient across aortic valve. MEDICATIONS: Medications at home include: Albuterol inhaler, metoprolol tartrate 12.5 mg b.i.d., Flomax 0.4 mg daily, and prednisone 10 mg daily. He is also on some antibiotics and atorvastatin 80 mg lisinopril 40 mg. ALLERGIES: Are none. EKG revealed a sinus mechanism without any acute changes. LABORATORY DATA: Suggests a significantly elevated white count of more than 30,000, hemoglobin of 8.0, and also troponin of 0.05, 0.07 and 0.07. Total bilirubin is elevated. Liver functions are abnormal. There is also modest elevation of proBNP. PHYSICAL EXAMINATION: On examination, blood pressure is 130/70, pulse rate is 70 per minute regular. HEENT unremarkable. Fundus was not examined by me. NECK is supple. No JVD. I do not hear a carotid bruit. HEART exam reveals S1, S2 with an ejection systolic murmur at the base. Second heart sound is well preserved. LUNGS revealed bilateral decent air entry. ABDOMEN is soft. There is mild right upper quadrant tenderness. Detailed exam not performed. Lower EXTREMITIES reveal diminished pulses. CENTRAL NERVOUS SYSTEM: No focal deficits but a detailed exam was not performed. Chest x-ray revealed left lower lobe pneumonia. IMPRESSION: 1. Acute left lower lobe pneumonia. 2. Ascending cholangitis. 3. Status post the splenectomy for ruptured spleen. 4. Elevated troponin does not suggest myocardial injury. 5. Probable mild diastolic heart failure. RECOMMENDATIONS: I am recommending that we will cautiously diurese him with Lasix 20 mg b.i.d. IV push. Continue metoprolol 12.5 mg b.i.d. and obtain echocardiogram to reassess LV function. Continue him on his other medications. No intervention necessary from a cardiac standpoint. Given his elevated white count pneumonia and ascending cholangitis, I think aggressive assessment of blood cultures and septic workup should be performed. I discussed my thoughts in detail with the patient. Thank you very much for the consult. DEVON / HAKEEM: [id number] /
--- NOTE | 2020-10-20 15:27 | P.PN ---
Progress Note - Text Progress Note Date: 10/20/20 I personally reviewed the case with the patient's family including case management. Patient has pre-existing history of symptomatic gallstones with choledocholithiasis. Upon last hospitalization, patient presented with ascending cholangitis where attempted ERCP was unsuccessful. Due to acute splenic rupture, transferred to outside institution was discontinued. Patient clinically improved while hospitalized. Patient had gone home and now returns 1 week later with elevated liver enzymes and total bilirubin. I personally reviewed his ultrasound of the right upper quadrant confirming 1 cm stone found within the distal common bile duct. Due to limitations of his anatomy per local GI group and need for emergent ERCP, transfer to [facility] initiated. alterations manager present. I personally spoke to [facility] transfer team with acceptance of care by Dr. Wolfe
--- NOTE | 2020-10-20 17:13 | P.DS ---
Providers Date of admission: 10/19/20 22:09 Expected date of discharge: 10/20/20 Attending physician: Elizabeth Palacios MD Consults: 10/19/20 21:45 Consult Physician Routine Consulting Provider: [facility] Consult Reason/Comments: New CHF; Elevated trop Do you want consulting provider notified?: Yes Consult Physician Routine Consulting Provider: Loi Palmer Consult Reason/Comments: Pneumonia Do you want consulting provider notified?: Yes 10/20/20 11:07 Consult Physician Stat Consulting Provider: Faith Gimenez Consult Reason/Comments: Possible gallstones. Do you want consulting provider notified?: Yes Primary care physician: [facility] Course: This is a 85-year-old male with a very complex past medical history who was recently discharged from the hospital after a prolonged hospitalization when he presented with acute ascending cholangitis was treated with aggressive IV fluid hydration and antibiotic and subsequently an ERCP was attempted but was not successful. At the time plan was to transfer him to [facility] for advanced GI evaluation. 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 His condition stabilized and patient was discharged home in a stable condition. He returned yesterday to the hospital with worsening abdominal pain and was found to have elevated bilirubin and elevated liver enzymes. Patient was admitted to the hospital and seen and evaluated by general surgery. He was started on broad- spectrum antibiotic with vancomycin and Zosyn. Gen. surgery advised the patient need to be transferred to [facility] for ERCP. Ultrasound of the abdomen in the ER showed a 1 cm calculus in the lower bile duct. Also patient was found to have troponin elevation so cardiology consulted. He denies any chest pain. 12-lead EKG showed no acute ischemic changes. This was thought to be a non-thrombotic troponin leak. Echocardiogram showed a preserved ejection fraction with no significant valvular abnormalities or wall motion abnormalities. Patient was accepted by [facility] and report called by our surgeon, Dr. Gimenez. Awaiting bed availability. Chest. Patient Condition at Discharge: Serious Plan - Discharge Summary Discharge Rx Participant: No New Discharge Prescriptions: No Action allopurinoL [Zyloprim] 100 mg PO DAILY lisinopriL 40 mg PO DAILY Atorvastatin Calcium [Lipitor] 80 mg PO DAILY Metoprolol Tartrate [Lopressor] 12.5 mg PO BID #60 tab Famotidine [Pepcid] 20 mg PO DAILY #30 tab Budesonide [Pulmicort] 1 mg INHALATION RT-BID #2 inhaler Albuterol Inhaler [Ventolin Hfa Inhaler] 2 puff INHALATION QID PRN #2 inhaler PRN Reason: Shortness Of Breath Amoxic-Pot Clav 875-125Mg [Augmentin 875-125] 1 tab PO Q12HR Tamsulosin [Flomax] 0.4 mg PO PC-BRKFST #30 cap.er.24h predniSONE 10 mg PO DAILY #3 tab Nicotine 21Mg/24Hr Patch [Habitrol] 1 patch TRANSDERM DAILY PRN PRN Reason: Nicotine Cravings Discharge Medication List allopurinoL [Zyloprim] 100 mg PO DAILY 05/05/15 [History] lisinopriL 40 mg PO DAILY 05/05/15 [History] Atorvastatin Calcium [Lipitor] 80 mg PO DAILY 06/08/18 [History] Albuterol Inhaler [Ventolin Hfa Inhaler] 2 puff INHALATION QID PRN #2 inhaler 10/15/20 [Rx] Budesonide [Pulmicort] 1 mg INHALATION RT-BID #2 inhaler 10/15/20 [Rx] Famotidine [Pepcid] 20 mg PO DAILY #30 tab 10/15/20 [Rx] Metoprolol Tartrate [Lopressor] 12.5 mg PO BID #60 tab 10/15/20 [Rx] Tamsulosin [Flomax] 0.4 mg PO PC-BRKFST #30 cap.er.24h 10/15/20 [Rx] predniSONE 10 mg PO DAILY #3 tab 10/15/20 [Rx] Amoxic-Pot Clav 875-125Mg [Augmentin 875-125] 1 tab PO Q12HR 10/19/20 [History] Nicotine 21Mg/24Hr Patch [Habitrol] 1 patch TRANSDERM DAILY PRN 10/19/20 [History] Follow up Appointment(s)/Referral(s): Leona Millan MD [Primary Care Provider] - 1-2 days
[2020-10-20] MEDS: BUDESONIDE 1 MG/2 ML NEBU INHALATION SCH (20:07)
[2020-10-20 20:23] LABS: Glucose,Whole Blood 163 mg/dL (75-99)
[2020-10-20] MEDS ORDERED: VANCOMYCIN 750 MG in SODIUM CHLORIDE 0.9% 250 ML IVPB SCH (21:00)
[2020-10-20] MEDS ORDERED: AZITHROMYCIN 500 MG in SODIUM CHLORIDE 0.9% 250 ML IVPB SCH (22:00)
[2020-10-21] MEDS: HEPARIN SODIUM,PORCINE/PF 5,000 UNIT/0.5 ML SYRINGE SQ SCH ×4 (00:30→21:34)
[2020-10-21] MEDS: PIPERACILLIN-TAZOBACTAM 3.375 GM in SODIUM CHLORIDE 0.9% 100 ML IVPB SCH ×4 (00:30→21:33)
[2020-10-21 06:19] LABS: Glucose,Whole Blood 82 mg/dL (75-99)
[2020-10-21] MEDS: BUDESONIDE 1 MG/2 ML NEBU INHALATION SCH ×2 (07:46→20:34)
[2020-10-21] MEDS: FUROSEMIDE 10 MG/ML 2 ML VIAL IV SCH ×2 (09:12→20:20)
[2020-10-21] MEDS: POTASSIUM CHLORIDE ER 20 MEQ TAB.ER PO SCH (09:12)
[2020-10-21] MEDS: TAMSULOSIN 0.4 MG CAP.ER.24H PO SCH (09:12)
[2020-10-21] MEDS: predniSONE 10 MG TAB PO SCH (09:12)
[2020-10-21] MEDS: METOPROLOL TARTRATE 12.5 MG TAB PO SCH ×2 (09:12→20:20)
[2020-10-21 09:25] LABS: Anisocytosis Slight; Basophils % (A) 0 %; Eosinophils # (A) 0.3 k/uL (0-0.7); Eosinophils % (A) 3 %; HCT 23.5 % (39.0-53.0); HGB 7.6 gm/dL (13.0-17.5); Hypochromasia Slight; Lymphocytes # (A) 0.5 k/uL (1.0-4.8); Lymphocytes % (A) 4 %; MCH 30.6 pg (25.0-35.0); MCHC 32.3 g/dL (31.0-37.0); MCV 94.7 fL (80.0-100.0); Macrocytosis Slight; Mean Platelet Volume 10.3; Monocytes # (A) 0.4 k/uL (0-1.0); Monocytes % (A) 3 %; Neutrophils # (A) 9.2 k/uL (1.3-7.7); Neutrophils % (A) 89 %; Platelet Count 141 k/uL (150-450); RBC 2.48 m/uL (4.30-5.90); RDW 18.4 % (11.5-15.5); WBC 10.4 k/uL (3.8-10.6)
[2020-10-21 09:45] LABS: Albumin 1.7 g/dL (3.5-5.0); Potassium 3.1 mmol/L (3.5-5.1); Total Bilirubin 0.6 mg/dL (0.2-1.3); Total Protein 3.5 g/dL (6.3-8.2)
[2020-10-21] MEDS ORDERED: POTASSIUM CHLORIDE ER 20 MEQ TAB.ER PO STA (10:02)
--- NOTE | 2020-10-21 11:12 | P.PN ---
Subjective Progress Note Date: 10/21/20 Patient is doing fairly well today. He does not have any complaints. I reminded him that he is awaiting bed availability at [facility] to be transferred. Objective - Vital Signs Vital signs: Vital Signs Temp 98.1 F 10/21/20 08:00 Pulse 72 10/21/20 08:00 Resp 18 10/21/20 08:00 BP 120/61 10/21/20 08:00 Pulse Ox 93 L 10/21/20 08:00 Intake & Output 10/20/20 10/21/20 10/21/20 18:59 06:59 18:59 Intake Total 830 240 Output Total 450 Balance 380 240 Weight 46.72 kg 46.72 kg Intake: Intake, IV Titration 350 Amount Piperacillin-Tazobactam 3 100 .375 gm In Sodium Chloride 0.9% 100 ml @ 25 mls/hr IVPB Q8H [facility] Rx#: [id number] Vancomycin 750 mg In 250 Sodium Chloride 0.9% 250 ml @ 125 mls/hr IVPB Q24H [facility] Rx#:[id number] Oral 480 240 Output: Urine 450 Other: Voiding Method Toilet # Voids 1 1 - Exam General: The patient is awake and alert, in no distress Eye: there is normal conjunctiva bilaterally. Neck: The neck is supple, there is no JVD. Cardiovascular: Normal S1-S2, no S3-S4, no murmurs. Respiratory: Lungs clear to auscultation bilaterally Gastrointestinal: Abdomen is soft, nontender Musculoskeletal: There is no pedal edema. Neurological:. Speech is normal. Skin: Skin is warm and dry - Labs CBC & Chem 7: 10/21/20 09:01 10/21/20 09:01 Labs: Abnormal Lab Results - Last 24 Hours (Table) 10/20/20 10/21/20 10/21/20 Range/Units 20:21 09:01 09:01 RBC 2.48 L (4.30-5.90) m/uL Hgb 7.6 L (13.0-17.5) gm/dL Hct 23.5 L (39.0-53.0) % RDW 18.4 H (11.5-15.5) % Plt Count 141 L (150-450) k/uL Neutrophils # 9.2 H (1.3-7.7) k/uL Lymphocytes # 0.5 L (1.0-4.8) k/uL Sodium 134 L (137-145) mmol/L Potassium 3.1 L (3.5-5.1) mmol/L Chloride 108 H (98-107) mmol/L Glucose 125 H (74-99) mg/dL POC Glucose (mg/dL) 163 H (75-99) mg/dL Calcium 7.0 L (8.4-10.2) mg/dL AST 69 H (17-59) U/L ALT 105 H (4-49) U/L Alkaline Phosphatase 384 H (38-126) U/L Total Protein 3.5 L (6.3-8.2) g/dL Albumin 1.7 L (3.5-5.0) g/dL Assessment and Plan Assessment: This is a 85-year-old male with a very complex past medical history who was recently discharged from the hospital after a prolonged hospitalization when he presented with acute ascending cholangitis was treated with aggressive IV fluid hydration and antibiotic and subsequently an ERCP was attempted but was not successful. At the time plan was to transfer him to [facility] for advanced GI evaluation. 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 His condition stabilized and patient was discharged home in a stable condition. He returned to the hospital with worsening abdominal pain and was found to have elevated bilirubin and elevated liver enzymes. Patient was admitted to the hospital and seen and evaluated by general surgery. He was started on broad- spectrum antibiotic with vancomycin and Zosyn. Gen. surgery advised the patient need to be transferred to [facility] for ERCP. Ultrasound of the abdomen in the ER showed a 1 cm calculus in the lower bile duct. Also patient was found to have troponin elevation so cardiology consulted. He denies any chest pain. 12-lead EKG showed no acute ischemic changes. This was thought to be a non-thrombotic troponin leak. Echocardiogram showed a preserved ejection fraction with no significant valvular abnormalities or wall motion abnormalities. Patient was started on IV Lasix by cardiology for suspected diastolic heart failure exacerbation. Patient was slightly hypokalemic today. Replacement ordered. His overall condition remains stable. Liver enzymes trending down. Bilirubin back to normal down from 3.0 on presentation. Awaiting bed availability at [facility] for ERCP.
[2020-10-21 11:51] LABS: Glucose,Whole Blood 102 mg/dL (75-99)
--- NOTE | 2020-10-21 11:55 | P.PN ---
Subjective Progress Note Date: 10/21/20 CHIEF COMPLAINT: Abdominal pain HISTORY OF PRESENT ILLNESS: Patient is currently lying in bed comfortably. He reports that his abdominal pain is better than yesterday. He is awaiting transfer to [facility] for ERCP procedure. Afebrile. WBC has normalized at 10.4 hemoglobin 7.6 sodium 134 potassium is 3.1 AST 69 ALT 105 alk phos 384. LFTs have trended down from yesterday. And total bili is normalized at 0.6 PHYSICAL EXAM: VITAL SIGNS: Reviewed GENERAL: Well-developed in no acute distress. HEENT: No sclera icterus. Extraocular movements grossly intact. Moist buccal mucosa. Head is atraumatic, normocephalic. Hears conversational speech. No nasal drainage. NECK: Supple without lymphadenopathy. CHEST: Non-labored respirations and equal bilateral excursions. CARDIOVASCULAR: Palpable 2+ radial pulses. ABDOMEN: Soft. Nondistended. Mild epigastric tenderness MUSCULOSKELETAL: No clubbing or cyanosis. NEUROLOGIC: No focal or lateralizing signs. Cranial nerves II through XII grossly intact. PSYCH: Appropriate affect. Alert and oriented to person, place and time. SKIN: Well perfused. Good skin turgor. ASSESSMENT: 1. Ascending cholangitis 2. Choledocholithiasis 3. Symptomatic cholelithiasis 4. History of acute splenic rupture status post splenectomy 5. Congestive heart failure exacerbation PLAN: -Patient is awaiting bed availability for transfer to [facility] for ERCP Continue supportive care- Physician Bale Breaker Operator note has been reviewed by physician. Signing provider agrees with the documented findings, assessment, and plan of care. Objective - Vital Signs Vital signs: Vital Signs Temp 98.1 F 10/21/20 08:00 Pulse 72 10/21/20 08:00 Resp 18 10/21/20 08:00 BP 120/61 10/21/20 08:00 Pulse Ox 93 L 10/21/20 08:00 Intake & Output 10/20/20 10/21/20 10/21/20 18:59 06:59 18:59 Intake Total 830 240 Output Total 450 600 Balance 380 -360 Weight 46.72 kg 46.72 kg Intake: Intake, IV Titration 350 Amount Piperacillin-Tazobactam 3 100 .375 gm In Sodium Chloride 0.9% 100 ml @ 25 mls/hr IVPB Q8H [facility] Rx#: [id number] Vancomycin 750 mg In 250 Sodium Chloride 0.9% 250 ml @ 125 mls/hr IVPB Q24H [facility] Rx#:[id number] Oral 480 240 Output: Urine 450 600 Other: Voiding Method Toilet # Voids 1 1 - Labs CBC & Chem 7: 10/21/20 09:01 10/21/20 09:01 Labs: Abnormal Lab Results - Last 24 Hours (Table) 10/20/20 10/21/20 10/21/20 Range/Units 20:21 09:01 09:01 RBC 2.48 L (4.30-5.90) m/uL Hgb 7.6 L (13.0-17.5) gm/dL Hct 23.5 L (39.0-53.0) % RDW 18.4 H (11.5-15.5) % Plt Count 141 L (150-450) k/uL Neutrophils # 9.2 H (1.3-7.7) k/uL Lymphocytes # 0.5 L (1.0-4.8) k/uL Sodium 134 L (137-145) mmol/L Potassium 3.1 L (3.5-5.1) mmol/L Chloride 108 H (98-107) mmol/L Glucose 125 H (74-99) mg/dL POC Glucose (mg/dL) 163 H (75-99) mg/dL Calcium 7.0 L (8.4-10.2) mg/dL AST 69 H (17-59) U/L ALT 105 H (4-49) U/L Alkaline Phosphatase 384 H (38-126) U/L Total Protein 3.5 L (6.3-8.2) g/dL Albumin 1.7 L (3.5-5.0) g/dL 10/21/20 Range/Units 11:50 RBC (4.30-5.90) m/uL Hgb (13.0-17.5) gm/dL Hct (39.0-53.0) % RDW (11.5-15.5) % Plt Count (150-450) k/uL Neutrophils # (1.3-7.7) k/uL Lymphocytes # (1.0-4.8) k/uL Sodium (137-145) mmol/L Potassium (3.5-5.1) mmol/L Chloride (98-107) mmol/L Glucose (74-99) mg/dL POC Glucose (mg/dL) 102 H (75-99) mg/dL Calcium (8.4-10.2) mg/dL AST (17-59) U/L ALT (4-49) U/L Alkaline Phosphatase (38-126) U/L Total Protein (6.3-8.2) g/dL Albumin (3.5-5.0) g/dL
--- NOTE | 2020-10-21 13:19 | PN ---
PROGRESS NOTE Mr. Cyr is in sinus rhythm, comfortable. Echo revealed good systolic function. Patient is being considered to be transferred to [facility] for management of his ascending cholangitis and biliary gallstone. Cardiac-gallardo no intervention is necessary. I will see the patient as needed. Vitals are stable. No JVD. S1-S2 heard normally. Short systolic murmur noted. Lungs reveal diminished air entry. Abdomen is soft. Rest of physical exam unchanged. The patient is likely to be to be transferred to [facility]. Cardiac-gallardo stable. Ejection fraction is normal by echo. Will see as needed. MMODL / IJN: [id number] /
[2020-10-21] MEDS ORDERED: VANCOMYCIN 750 MG in SODIUM CHLORIDE 0.9% 250 ML IVPB SCH (14:00)
[2020-10-21 16:44] LABS: Glucose,Whole Blood 226 mg/dL (75-99)
[2020-10-21 20:28] LABS: Glucose,Whole Blood 170 mg/dL (75-99)
--- NOTE | 2020-10-21 23:12 | P.CONS ---
History of Present Illness - Reason for Consult Consult date: 10/21/20 pneumonia Requesting physician: Charles Baig - Chief Complaint abd pian x 1 day - History of Present Illness History of present illness : Patient is 85-year-old male recently did have a prolonged stay in the hospital this patient did have a splenectomy 4 days rupture patient did have evidence of cholangitis with E. coli bacteremia and aspiration pneumonia patient was on prolonged course of antibiotic after stabilization patient will discharge to the long-term patient has been brought to [facility] ER on the eighth for evaluation of abdominal pain mostly in the central abdominal area and the patient was noted to be more confused than no clear history of any nausea or vomiting. Patient has some trouble breathing but no cough or sputum production with the symptoms the patient was evaluated by ER physician on arrival to the ER patient was afebrile and no fever has been recorded subsequently patient did have a no hypoxemia did have elevated white count of 26.3 was up to 32.3 yesterday however is down to normal today did have a normal kidney function left lower hip slightly low especially with traction did have elevated liver enzymes urine was negative dubois PCR was negative patient did have a chest x-ray with left lower lobe pneumonia increased compared to old exam patient did have a ultrasound of the liver dilated CBD with possible 1 cm stone visualized within the distal portion patient was started on Zosyn and vancomycin was admitted to hospital infectious disease was consulted for further management of antibiotic therapy. On today's evaluation patient denies having any fever or any chills patient is currently breathing comfortably on room air he did have a cough which is moderate intensity but not bringing up any sputum patient denies having any nausea no vomiting no further abdominal pain or diarrhea Review of system: Positive point has been mentioned in HPI rest of the systems are negative Past medical history : Reviewed, documented below Past surgical history : Reviewed, documented below Social history: Reviewed, documented below Medications: Reviewed, as documented below GENERAL DESCRIPTION: Elderly male lying in bed, no distress. No tachypnea or accessory muscle of respiration use. HEENT: Shows Pallor , no scleral icterus. Oral mucous membrane is dry. NECK: Trachea central, no thyromegaly. LUNGS: Unlabored breathing. Decreased breath sound at the base. No wheeze or crackle. HEART: S1, S2, regular rate and rhythm. ABDOMEN: Soft, no tenderness , guarding or rigidity EXTREMITIES: No edema of feet. SKIN: No rash, no masses palpable. NEUROLOGICAL: The patient is awake, alert, oriented x3, mood and affect normal. LABS AND RADIOLOGY: Reviewed results see below Assessment : 1-patient with leukocytosis of white count 26,000 which is likely multifactorial in this patient who did have a component of left lower lobe pneumonia possible aspiration of gram-negative and the patient also have evidenc e of dilated CBD elevated liver enzymes and possible ascending cholangitis will require for the enteric gram-negative the likely pathogen and less likely gram- positive infection Plan: 1-Zosyn 3.375 g every 8 hours to continue 2-discontinue vancomycin 3-obtain sputum for Gram stain and culture We will follow on clinical condition and cultures to further adjust medication if needed Thank you for this consultation we will follow the patient along with you Past Medical History Past Medical History: COPD, Hyperlipidemia, Hypertension, Pneumonia, Prostate Disorder, Vascular Disorder Additional Past Medical History / Comment(s): Pt recently admitted to [facility] on 09/24/20 with acute ascending cholangitis with E coli bacteremia, acute respiratory failure 2ndary to aspiration pneumonia, urinary retention, slenic rupture with acute blood loss anemia. 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 Past Anesthesia/Blood Transfusion Reactions: No Reported Reaction Additional Past Anesthesia/Blood Transfusion Reaction / Comm: Patient has received blood without reaction. Smoking Status: Current every day smoker, Light tobacco smoker - Past Family History Brother(s) Family Medical History: Cancer Additional Family Medical History / Comment(s): Unknown type Sister(s) Family Medical History: Cancer Additional Family Medical History / Comment(s): Unknown type Mother Additional Family Medical History / Comment(s): Mother in her 60's from heart disease Medications and Allergies Home Medications Medication Instructions Recorded Confirmed Type allopurinoL [Zyloprim] 100 mg PO DAILY 05/05/15 10/19/20 History lisinopriL 40 mg PO DAILY 05/05/15 10/19/20 History Atorvastatin Calcium [Lipitor] 80 mg PO DAILY 06/08/18 10/19/20 History Albuterol Inhaler [Ventolin Hfa 2 puff INHALATION QID PRN #2 10/15/20 10/19/20 Rx Inhaler] inhaler Budesonide [Pulmicort] 1 mg INHALATION RT-BID #2 inhaler 10/15/20 10/19/20 Rx Famotidine [Pepcid] 20 mg PO DAILY #30 tab 10/15/20 10/19/20 Rx Metoprolol Tartrate [Lopressor] 12.5 mg PO BID #60 tab 10/15/20 10/19/20 Rx Tamsulosin [Flomax] 0.4 mg PO PC-BRKFST #30 cap.er.24h 10/15/20 10/19/20 Rx predniSONE 10 mg PO DAILY #3 tab 10/15/20 10/19/20 Rx Amoxic-Pot Clav 875-125Mg 1 tab PO Q12HR 10/19/20 10/19/20 History [Augmentin 875-125] Nicotine 21Mg/24Hr Patch [Habitrol] 1 patch TRANSDERM DAILY PRN 10/19/20 10/19/20 History Allergies Allergy/AdvReac Type Severity Reaction Status Date / Time No Known Allergies Allergy Verified 10/19/20 18:59 Physical Exam Vitals: Vital Signs Temp Pulse Pulse Resp BP Pulse Ox 10/21/20 14:00 18 10/21/20 12:00 67 18 175/68 95 10/21/20 08:00 98.1 F 72 18 120/61 93 L 10/21/20 07:47 74 10/21/20 07:35 70 10/21/20 04:00 97.6 F 60 16 132/77 95 10/21/20 02:00 60 18 10/21/20 00:00 98.0 F 60 18 146/70 96 10/20/20 20:22 72 10/20/20 20:07 68 99 10/20/20 20:00 97.7 F 68 18 141/65 98 Intake and Output 10/21/20 10/21/20 10/21/20 06:59 14:59 22:59 Intake Total 600 Output Total 600 Balance 0 Intake: Oral 600 Output: Urine 600 Other: Voiding Method Toilet # Voids 1 1 Weight 46.72 kg Results CBC & Chem 7: 10/21/20 09:01 10/21/20 09:01 Labs: Abnormal Lab Results - Last 24 Hours (Table) 10/20/20 10/21/20 10/21/20 Range/Units 20:21 09:01 09:01 RBC 2.48 L (4.30-5.90) m/uL Hgb 7.6 L (13.0-17.5) gm/dL Hct 23.5 L (39.0-53.0) % RDW 18.4 H (11.5-15.5) % Plt Count 141 L (150-450) k/uL Neutrophils # 9.2 H (1.3-7.7) k/uL Lymphocytes # 0.5 L (1.0-4.8) k/uL Sodium 134 L (137-145) mmol/L Potassium 3.1 L (3.5-5.1) mmol/L Chloride 108 H (98-107) mmol/L Glucose 125 H (74-99) mg/dL POC Glucose (mg/dL) 163 H (75-99) mg/dL Calcium 7.0 L (8.4-10.2) mg/dL AST 69 H (17-59) U/L ALT 105 H (4-49) U/L Alkaline Phosphatase 384 H (38-126) U/L Total Protein 3.5 L (6.3-8.2) g/dL Albumin 1.7 L (3.5-5.0) g/dL 10/21/20 Range/Units 11:50 RBC (4.30-5.90) m/uL Hgb (13.0-17.5) gm/dL Hct (39.0-53.0) % RDW (11.5-15.5) % Plt Count (150-450) k/uL Neutrophils # (1.3-7.7) k/uL Lymphocytes # (1.0-4.8) k/uL Sodium (137-145) mmol/L Potassium (3.5-5.1) mmol/L Chloride (98-107) mmol/L Glucose (74-99) mg/dL POC Glucose (mg/dL) 102 H (75-99) mg/dL Calcium (8.4-10.2) mg/dL AST (17-59) U/L ALT (4-49) U/L Alkaline Phosphatase (38-126) U/L Total Protein (6.3-8.2) g/dL Albumin (3.5-5.0) g/dL Microbiology - Last 24 Hours (Table) 10/20/20 11:18 Blood Culture - Preliminary Blood No Growth after 24 hours 10/20/20 11:23 Blood Culture - Preliminary Blood No Growth after 24 hours
[2020-10-22] MEDS: PIPERACILLIN-TAZOBACTAM 3.375 GM in SODIUM CHLORIDE 0.9% 100 ML IVPB SCH ×3 (03:06→21:30)
[2020-10-22 06:19] LABS: Glucose,Whole Blood 98 mg/dL (75-99)
[2020-10-22 08:37] LABS: Calcium 7.4 mg/dL (8.4-10.2); Potassium 3.3 mmol/L (3.5-5.1); Total Bilirubin 0.5 mg/dL (0.2-1.3); Total Protein 4.1 g/dL (6.3-8.2)
[2020-10-22] MEDS: BUDESONIDE 1 MG/2 ML NEBU INHALATION SCH ×2 (08:40→19:49)
[2020-10-22] MEDS: FUROSEMIDE 10 MG/ML 2 ML VIAL IV SCH (09:22)
[2020-10-22] MEDS: POTASSIUM CHLORIDE ER 20 MEQ TAB.ER PO SCH ×2 (09:22→14:49)
[2020-10-22] MEDS: HEPARIN SODIUM,PORCINE/PF 5,000 UNIT/0.5 ML SYRINGE SQ SCH ×3 (09:22→23:23)
[2020-10-22] MEDS: TAMSULOSIN 0.4 MG CAP.ER.24H PO SCH (09:22)
[2020-10-22] MEDS: METOPROLOL TARTRATE 12.5 MG TAB PO SCH ×2 (09:22→20:08)
[2020-10-22] MEDS: predniSONE 10 MG TAB PO SCH (09:22)
[2020-10-22] MEDS ORDERED: MORPHINE SULFATE 2 MG/ML SYRINGE IV PRN (13:17)
--- NOTE | 2020-10-22 13:22 | P.PN ---
Subjective Progress Note Date: 10/22/20 Patient is doing fairly well today. He does not have any complaints. I reminded him that he is awaiting bed availability at [facility] to be transferred. Lab work from this morning showed hypokalemia with a potassium of 3.3 Objective - Vital Signs Vital signs: Vital Signs Temp 97.7 F 10/22/20 08:00 Pulse 74 10/22/20 08:00 Resp 18 10/22/20 08:00 BP 178/74 10/22/20 08:00 Pulse Ox 95 10/22/20 08:40 Intake & Output 10/21/20 10/22/20 10/22/20 18:59 06:59 18:59 Intake Total 840 340 240 Output Total 600 600 0 Balance 240 -260 240 Weight 46.72 kg 50.7 kg Intake: Intake, IV Titration 100 Amount Piperacillin-Tazobactam 3 100 .375 gm In Sodium Chloride 0.9% 100 ml @ 25 mls/hr IVPB Q8H [facility] Rx#: [id number] Oral 840 240 240 Output: Urine 600 600 Stool 0 0 0 Other: Voiding Method Toilet # Voids 0 # Bowel Movements 0 - Exam General: The patient is awake and alert, in no distress Eye: there is normal conjunctiva bilaterally. Neck: The neck is supple, there is no JVD. Cardiovascular: Normal S1-S2, no S3-S4, no murmurs. Respiratory: Lungs clear to auscultation bilaterally Gastrointestinal: Abdomen is soft, nontender Musculoskeletal: There is no pedal edema. Neurological:. Speech is normal. Skin: Skin is warm and dry - Labs CBC & Chem 7: 10/21/20 09:01 10/22/20 08:01 Labs: Abnormal Lab Results - Last 24 Hours (Table) 10/21/20 10/21/20 10/22/20 Range/Units 16:43 20:27 08:01 Sodium 136 L (137-145) mmol/L Potassium 3.3 L (3.5-5.1) mmol/L Chloride 110 H (98-107) mmol/L POC Glucose (mg/dL) 226 H 170 H (75-99) mg/dL Calcium 7.4 L (8.4-10.2) mg/dL ALT 91 H (4-49) U/L Alkaline Phosphatase 414 H (38-126) U/L Total Protein 4.1 L (6.3-8.2) g/dL Albumin 2.0 L (3.5-5.0) g/dL Microbiology - Last 24 Hours (Table) 10/20/20 11:18 Blood Culture - Preliminary Blood No Growth after 24 hours 10/20/20 11:23 Blood Culture - Preliminary Blood No Growth after 24 hours Assessment and Plan Assessment: This is a 85-year-old male with a very complex past medical history who was recently discharged from the hospital after a prolonged hospitalization when he presented with acute ascending cholangitis was treated with aggressive IV fluid hydration and antibiotic and subsequently an ERCP was attempted but was not successful. At the time plan was to transfer him to [facility] for a dvanced GI evaluation. 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 His condition stabilized and patient was discharged home in a stable condition. He returned to the hospital with worsening abdominal pain and was found to have elevated bilirubin and elevated liver enzymes. Patient was admitted to the hospital and seen and evaluated by general surgery. He was started on broad- spectrum antibiotic with vancomycin and Zosyn. Gen. surgery advised the patient need to be transferred to [facility] for ERCP. Ultrasound of the abdomen in the ER showed a 1 cm calculus in the lower bile duct. Also patient was found to have troponin elevation so cardiology consulted. He denies any chest pain. 12-lead EKG showed no acute ischemic changes. This was thought to be a non-thrombotic troponin leak. Echocardiogram showed a preserved ejection fraction with no significant valvular abnormalities or wall motion abnormalit ies. Patient was started on IV Lasix by cardiology for suspected diastolic heart failure exacerbation. Patient was slightly hypokalemic today. Replacement ordered. His overall condition remains stable. Liver enzymes trending down. Bilirubin back to normal down from 3.0 on presentation. Awaiting bed availability at [facility] for ERCP. We will order potassium replacement for today and start patient on K-Dur 20 milliequivalent daily. Repeat lab work in the morning. Hoping patient will be transferred later today.
--- NOTE | 2020-10-22 13:53 | P.PN ---
Subjective Progress Note Date: 10/22/20 CHIEF COMPLAINT: Abdominal pain HISTORY OF PRESENT ILLNESS: Patient is currently lying in bed comfortably. Patient currently denies abdominal pain. He is awaiting transfer to [facility] for ERCP procedure. Afebrile. Total bilirubin is normal. LFTs continued to trend downwards PHYSICAL EXAM: VITAL SIGNS: Reviewed GENERAL: Well-developed in no acute distress. HEENT: No sclera icterus. Extraocular movements grossly intact. Moist buccal mucosa. Head is atraumatic, normocephalic. Hears conversational speech. No nasal drainage. NECK: Supple without lymphadenopathy. CHEST: Non-labored respirations and equal bilateral excursions. CARDIOVASCULAR: Palpable 2+ radial pulses. ABDOMEN: Soft. Nondistended. Mild epigastric tenderness and right upper quadrant tenderness MUSCULOSKELETAL: No clubbing or cyanosis. NEUROLOGIC: No focal or lateralizing signs. Cranial nerves II through XII grossly intact. PSYCH: Appropriate affect. Alert and oriented to person, place and time. SKIN: Well perfused. Good skin turgor. ASSESSMENT: 1. Ascending cholangitis 2. Choledocholithiasis 3. Symptomatic cholelithiasis 4. History of acute splenic rupture status post splenectomy 5. Congestive heart failure exacerbation 6. Hypokalemia PLAN: -Patient is awaiting bed availability for transfer to [facility] for ERCP -Continue supportive care -Patient's potassium is being replaced Physician Staff Midwife/Apprenticeship Director note has been reviewed by physician. Signing provider agrees with the documented findings, assessment, and plan of care. Objective - Vital Signs Vital signs: Vital Signs Temp 97.7 F 10/22/20 08:00 Pulse 64 10/22/20 12:00 Resp 18 10/22/20 12:00 BP 168/85 10/22/20 12:00 Pulse Ox 94 L 10/22/20 12:00 Intake & Output 10/21/20 10/22/20 10/22/20 18:59 06:59 18:59 Intake Total 840 340 240 Output Total 600 600 0 Balance 240 -260 240 Weight 46.72 kg 50.7 kg Intake: Intake, IV Titration 100 Amount Piperacillin-Tazobactam 3 100 .375 gm In Sodium Chloride 0.9% 100 ml @ 25 mls/hr IVPB Q8H [facility] Rx#: [id number] Oral 840 240 240 Output: Urine 600 600 Stool 0 0 0 Other: Voiding Method Toilet # Voids 0 # Bowel Movements 0 - Labs CBC & Chem 7: 10/21/20 09:01 10/22/20 08:01 Labs: Abnormal Lab Results - Last 24 Hours (Table) 10/21/20 10/21/20 10/22/20 Range/Units 16:43 20:27 08:01 Sodium 136 L (137-145) mmol/L Potassium 3.3 L (3.5-5.1) mmol/L Chloride 110 H (98-107) mmol/L POC Glucose (mg/dL) 226 H 170 H (75-99) mg/dL Calcium 7.4 L (8.4-10.2) mg/dL ALT 91 H (4-49) U/L Alkaline Phosphatase 414 H (38-126) U/L Total Protein 4.1 L (6.3-8.2) g/dL Albumin 2.0 L (3.5-5.0) g/dL Microbiology - Last 24 Hours (Table) 10/20/20 11:18 Blood Culture - Preliminary Blood No Growth after 48 hours 10/20/20 11:23 Blood Culture - Preliminary Blood No Growth after 48 hours
[2020-10-22] MEDS: IPRATROPIUM-ALBUTEROL 3 ML NEB INHALATION SCH ×2 (15:13→19:49)
--- NOTE | 2020-10-22 16:32 | PN ---
PROGRESS NOTE DATE OF SERVICE: 10/22/2020 REASON FOR FOLLOWUP: Ascending cholangitis and pneumonia. INTERVAL HISTORY: Patient is afebrile. The patient mentioning breathing not that good but denies any chest pain or cough. No nausea, no vomiting. No abdominal pain. No diarrhea. PHYSICAL EXAMINATION: Blood pressure 158/85, pulse of 84, temperature 97.7. He is 94% on 2 L nasal cannula. General description is an elderly male lying in bed in no distress. Respiratory system: Unlabored breathing, decreased breath sounds in the bases. No wheeze. Heart S1, S2. Regular rate and rhythm. Abdomen soft, no tenderness. LABS: White count 10.4, BUN of 12, creatinine 0.92. DIAGNOSTIC IMPRESSION AND PLAN: Patient with left lower lobe pneumonia and concern for ascending cholangitis with retained CBD stone waiting for possible transfer to [facility] for an ERCP. Patient is covered with Zosyn that should cover pneumonia as well and monitor clinical course closely. MMODL / IJN: [id number] /
[2020-10-23] MEDS ORDERED: VANCOMYCIN TROUGH DUE 1 EACH MISC MISCELLANE ONE (01:00)
[2020-10-23] MEDS: PIPERACILLIN-TAZOBACTAM 3.375 GM in SODIUM CHLORIDE 0.9% 100 ML IVPB SCH ×3 (06:17→22:01)
[2020-10-23 07:36] LABS: Anisocytosis Slight; Basophils % (A) 0 %; Eosinophils # (A) 0.1 k/uL (0-0.7); Eosinophils % (A) 1 %; HCT 23.4 % (39.0-53.0); HGB 7.6 gm/dL (13.0-17.5); Hypochromasia Slight; Lymphocytes % (A) 14 %; MCH 30.8 pg (25.0-35.0); MCHC 32.6 g/dL (31.0-37.0); MCV 94.7 fL (80.0-100.0); Macrocytosis Slight; Mean Platelet Volume 10.9; Monocytes # (A) 0.4 k/uL (0-1.0); Monocytes % (A) 5 %; Neutrophils # (A) 5.6 k/uL (1.3-7.7); Neutrophils % (A) 78 %; Platelet Count 136 k/uL (150-450); RBC 2.47 m/uL (4.30-5.90); RDW 18.4 % (11.5-15.5); WBC 7.2 k/uL (3.8-10.6)
[2020-10-23 07:49] LABS: African American GFR (CKD) >90 (>60 ml/min/1.73 sqM); Anion Gap 1 mmol/L; Blood Urea Nitrogen 11 mg/dL (9-20); Calcium 7.4 mg/dL (8.4-10.2); Carbon Dioxide 25 mmol/L (22-30); Chloride 112 mmol/L (98-107); Glucose 78 mg/dL (74-99); Magnesium 1.6 mg/dL (1.6-2.3); Non-African American GFR(CKD) 80 (>60 ml/min/1.73 sqM); Potassium 3.3 mmol/L (3.5-5.1); Sodium 138 mmol/L (137-145)
[2020-10-23] MEDS: TAMSULOSIN 0.4 MG CAP.ER.24H PO SCH (08:57)
[2020-10-23] MEDS: HEPARIN SODIUM,PORCINE/PF 5,000 UNIT/0.5 ML SYRINGE SQ SCH ×3 (08:57→22:57)
[2020-10-23] MEDS: POTASSIUM CHLORIDE ER 20 MEQ TAB.ER PO SCH (08:57)
[2020-10-23] MEDS: METOPROLOL TARTRATE 12.5 MG TAB PO SCH ×2 (08:57→20:15)
[2020-10-23] MEDS: predniSONE 10 MG TAB PO SCH (08:58)
[2020-10-23] MEDS: BUDESONIDE 1 MG/2 ML NEBU INHALATION SCH ×2 (09:01→20:30)
[2020-10-23] MEDS: IPRATROPIUM-ALBUTEROL 3 ML NEB INHALATION SCH ×4 (09:01→20:30)
--- NOTE | 2020-10-23 13:39 | P.PN ---
Subjective Progress Note Date: 10/23/20 Patient is doing fairly well today. He does not have any complaints. I reminded him that he is awaiting bed availability at [facility] to be transferred. Lab work from this morning showed hypokalemia with a potassium of 3.3 Objective - Vital Signs Vital signs: Vital Signs Temp 97.8 F 10/23/20 12:40 Pulse 64 10/23/20 12:40 Resp 18 10/23/20 12:40 BP 198/62 10/23/20 12:40 Pulse Ox 96 10/23/20 12:40 Intake & Output 10/22/20 10/23/20 10/23/20 18:59 06:59 18:59 Intake Total 780 240 Output Total 0 80 Balance 780 160 Weight 50 kg Intake: Oral 780 240 Output: Urine 80 Stool 0 Other: Voiding Method Toilet Urinal # Voids 3 1 1 # Bowel Movements 2 - Exam General: The patient is awake and alert, in no distress Eye: there is normal conjunctiva bilaterally. Neck: The neck is supple, there is no JVD. Cardiovascular: Normal S1-S2, no S3-S4, no murmurs. Respiratory: Lungs clear to auscultation bilaterally Gastrointestinal: Abdomen is soft, nontender Musculoskeletal: There is no pedal edema. Neurological:. Speech is normal. Skin: Skin is warm and dry - Labs CBC & Chem 7: 10/23/20 07:03 10/23/20 07:03 Labs: Abnormal Lab Results - Last 24 Hours (Table) 10/23/20 10/23/20 Range/Units 07:03 07:03 RBC 2.47 L (4.30-5.90) m/uL Hgb 7.6 L (13.0-17.5) gm/dL Hct 23.4 L (39.0-53.0) % RDW 18.4 H (11.5-15.5) % Plt Count 136 L (150-450) k/uL Potassium 3.3 L (3.5-5.1) mmol/L Chloride 112 H (98-107) mmol/L Calcium 7.4 L (8.4-10.2) mg/dL Microbiology - Last 24 Hours (Table) 10/20/20 11:18 Blood Culture - Preliminary Blood No Growth after 48 hours 10/20/20 11:23 Blood Culture - Preliminary Blood No Growth after 48 hours Assessment and Plan Assessment: This is a 85-year-old male with a very complex past medical history who was recently discharged from the hospital after a prolonged hospitalization when he presented with acute ascending cholangitis was treated with aggressive IV fluid hydration and antibiotic and subsequently an ERCP was attempted but was not successful. At the time plan was to transfer him to [facility] for advanced GI evaluation. 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 His condition stabilized and patient was discharged home in a stable condition. He returned to the hospital with worsening abdominal pain and was found to have elevated bilirubin and elevated liver enzymes. Patient was admitted to the hospital and seen and evaluated by general surgery. He was started on broad- spectrum antibiotic with Zosyn day #5. Gen. surgery advised the patient need to be transferred to [facility] for ERCP. Ultrasound of the abdomen in the ER showed a 1 cm calculus in the lower bile duct. Also patient was found to have troponin elevation so cardiology consulted. He denies any chest pain. 12- lead EKG showed no acute ischemic changes. This was thought to be a non- thrombotic troponin leak. Echocardiogram showed a preserved ejection fraction with no significant valvular abnormalities or wall motion abnormalities. Patie nt was started on IV Lasix by cardiology for suspected diastolic heart failure exacerbation. Patient had problems with hypokalemia that was replaced His overall condition remains stable. Liver enzymes trending down. Bilirubin back to normal down from 3.0 on presentation. Awaiting bed availability at [facility] for ERCP. Repeat lab work in the morning. Hoping patient will be transferred later today.
[2020-10-23] MEDS ORDERED: POTASSIUM CHLORIDE ER 20 MEQ TAB.ER PO STA (14:21)
--- NOTE | 2020-10-23 14:24 | P.PN ---
Subjective Progress Note Date: 10/23/20 CHIEF COMPLAINT: Abdominal pain HISTORY OF PRESENT ILLNESS: Patient is currently lying in bed comfortably. Patient reports some mild epigastric right upper quadrant pain this morning. Patient is supposed to be on a low-fat diet. He did receive eggs with cheese, sausage and hashbrowns with butter. Patient chose not to eat the meal because it was truly not a low-fat diet. He is awaiting transfer to [facility] for ERCP procedure. Afebrile. WBC 7.2 hemoglobin 7.6 potassium is 3.3 PHYSICAL EXAM: VITAL SIGNS: Reviewed GENERAL: Well-developed in no acute distress. HEENT: No sclera icterus. Extraocular movements grossly intact. Moist buccal mucosa. Head is atraumatic, normocephalic. Hears conversational speech. No nasal drainage. NECK: Supple without lymphadenopathy. CHEST: Non-labored respirations and equal bilateral excursions. CARDIOVASCULAR: Palpable 2+ radial pulses. ABDOMEN: Soft. Nondistended. Mild epigastric tenderness and right upper quadrant tenderness MUSCULOSKELETAL: No clubbing or cyanosis. NEUROLOGIC: No focal or lateralizing signs. Cranial nerves II through XII grossly intact. PSYCH: Appropriate affect. Alert and oriented to person, place and time. SKIN: Well perfused. Good skin turgor. ASSESSMENT: 1. Ascending cholangitis 2. Choledocholithiasis 3. Symptomatic cholelithiasis 4. History of acute splenic rupture status post splenectomy 5. Congestive heart failure exacerbation 6. Hypokalemia and hypomagnesemia PLAN: -Check abdominal ultrasound to further evaluate if gallstones are still present in the common bile duct -Patient is awaiting bed availability for transfer to [facility] for ERCP -Continue supportive care -Replace potassium and magnesium Physician Machine Design Engineer note has been reviewed by physician. Signing provider agrees with the documented findings, assessment, and plan of care. Objective - Vital Signs Vital signs: Vital Signs Temp 97.8 F 10/23/20 12:40 Pulse 64 10/23/20 12:40 Resp 18 10/23/20 12:40 BP 198/62 10/23/20 12:40 Pulse Ox 96 10/23/20 12:40 Intake & Output 10/22/20 10/23/20 10/23/20 18:59 06:59 18:59 Intake Total 780 240 Output Total 0 80 Balance 780 160 Weight 50 kg Intake: Oral 780 240 Output: Urine 80 Stool 0 Other: Voiding Method Toilet Urinal # Voids 3 1 1 # Bowel Movements 2 - Labs CBC & Chem 7: 10/23/20 07:03 10/23/20 07:03 Labs: Abnormal Lab Results - Last 24 Hours (Table) 10/23/20 10/23/20 Range/Units 07:03 07:03 RBC 2.47 L (4.30-5.90) m/uL Hgb 7.6 L (13.0-17.5) gm/dL Hct 23.4 L (39.0-53.0) % RDW 18.4 H (11.5-15.5) % Plt Count 136 L (150-450) k/uL Potassium 3.3 L (3.5-5.1) mmol/L Chloride 112 H (98-107) mmol/L Calcium 7.4 L (8.4-10.2) mg/dL Microbiology - Last 24 Hours (Table) 10/20/20 11:18 Blood Culture - Preliminary Blood No Growth after 72 hours 10/20/20 11:23 Blood Culture - Preliminary Blood No Growth after 72 hours
[2020-10-23] MEDS ORDERED: MAGNESIUM SULFATE-D5W PMX 1 GM in DEXTROSE/WATER 1 100ML.BAG IVPB ONE (14:30)
--- NOTE | 2020-10-23 21:09 | PN ---
PROGRESS NOTE DATE OF SERVICE: 10/23/2020 REASON FOR FOLLOWUP: 1. Left lower lobe pneumonia. 2. Cholangitis. INTERVAL HISTORY: Patient is afebrile. He is breathing comfortably. Currently on room air. Denies having any chest pain. No worsening cough. No abdominal pain. No vomiting or diarrhea has been reported. PHYSICAL EXAMINATION: Blood pressure 198/62 with a pulse of 64, temperature 97.8. He is 93% on room air. General description is an elderly male lying in bed in no distress. Respiratory system: Unlabored breathing, decreased breath sounds at the base. No wheeze. Heart: S1, S2. Regular rate and rhythm. Abdomen soft, no tenderness. LABS: Hemoglobin 7.1, white count 7.2, BUN of 11, creatinine 0.87. Blood culture has been negative. DIAGNOSTIC IMPRESSION AND PLAN: Patient admitted to the hospital with abdominal pain shortness of breath and cough in this patient who did have a left lower lobe pneumonia and concerning for cholangitis with retained CBD stone. Waiting for transfer to [facility] for AICD. Patient is covered with Zosyn. Continue supportive care. MMODL / IJN: [id number] /
--- NOTE | 2020-10-23 21:35 | US ---
EXAMINATION TYPE: US gallbladder DATE OF EXAM: 10/23/2020 COMPARISON: US CLINICAL HISTORY: Abdominal pain, Follow-up on gallstones in CBD. Abdominal pain, follow-up on gallst one in CBD. EXAM MEASUREMENTS: Liver Length: 11.5 cm Gallbladder Wall: 0.39 cm CBD: 0.80 cm Right Kidney: 9.5 x 5.3 x 5.2 cm Limited due to overlying bowel gas. Pancreas: Obscured. Liver: Limited visibility. Gallbladder: Multiple hyperechoic areas with posterior shadowing seen within the gallbladder, consis tent with gallstones. Mild wall thickness. Evidence for sonographic Ugalde's sign: No CBD: Appears dilated. Limited due to gas. Hyperechoic area seen previously was not seen at this time . Right Kidney: Pelvocaliectasis appearance. Fluid seen adjacent to/superior to the liver-pleural effusion appearance. IMPRESSION: Cholelithiasis with mild wall thickness. Reported negative sonographic Ugalde's sign. Findings are eq uivocal for acute cholecystitis. Consider surgical consultation and HIDA scan may be obtained as clin ically indicated. Suggestion of small right pleural effusion. Nonspecific 8 mm dilated CBD.
[2020-10-24] MEDS: PIPERACILLIN-TAZOBACTAM 3.375 GM in SODIUM CHLORIDE 0.9% 100 ML IVPB SCH ×3 (05:02→20:56)
[2020-10-24] MEDS ORDERED: hydrALAZINE HCL 20 MG/ML 1 ML VIAL IVP STA (07:30)
[2020-10-24 08:06] LABS: Anisocytosis Slight; Basophils % (A) 0 %; Eosinophils # (A) 0.2 k/uL (0-0.7); Eosinophils % (A) 3 %; HCT 27.2 % (39.0-53.0); HGB 8.8 gm/dL (13.0-17.5); Hypochromasia Slight; Lymphocytes # (A) 1.2 k/uL (1.0-4.8); Lymphocytes % (A) 15 %; MCH 30.5 pg (25.0-35.0); MCHC 32.2 g/dL (31.0-37.0); MCV 94.7 fL (80.0-100.0); Macrocytosis Slight; Mean Platelet Volume 10.5; Monocytes # (A) 0.4 k/uL (0-1.0); Monocytes % (A) 5 %; Neutrophils # (A) 6.2 k/uL (1.3-7.7); Neutrophils % (A) 76 %; Platelet Count 164 k/uL (150-450); RBC 2.88 m/uL (4.30-5.90); RDW 18.3 % (11.5-15.5); WBC 8.1 k/uL (3.8-10.6)
[2020-10-24] MEDS: TAMSULOSIN 0.4 MG CAP.ER.24H PO SCH (08:27)
[2020-10-24] MEDS: predniSONE 10 MG TAB PO SCH (08:27)
[2020-10-24] MEDS: lisinopriL 20 MG TAB PO SCH (08:27)
[2020-10-24] MEDS: METOPROLOL TARTRATE 12.5 MG TAB PO SCH ×2 (08:27→20:56)
[2020-10-24] MEDS: POTASSIUM CHLORIDE ER 20 MEQ TAB.ER PO SCH (08:27)
[2020-10-24] MEDS: HEPARIN SODIUM,PORCINE/PF 5,000 UNIT/0.5 ML SYRINGE SQ SCH ×3 (08:30→23:40)
[2020-10-24 08:31] LABS: ALT 60 U/L (4-49); AST 36 U/L (17-59); African American GFR (CKD) >90 (>60 ml/min/1.73 sqM); Albumin 2.2 g/dL (3.5-5.0); Alkaline Phosphatase 339 U/L (38-126); Anion Gap 2 mmol/L; Blood Urea Nitrogen 9 mg/dL (9-20); Calcium 7.8 mg/dL (8.4-10.2); Carbon Dioxide 23 mmol/L (22-30); Chloride 113 mmol/L (98-107); Glucose 92 mg/dL (74-99); Magnesium 1.8 mg/dL (1.6-2.3); Non-African American GFR(CKD) 84 (>60 ml/min/1.73 sqM); Potassium 3.6 mmol/L (3.5-5.1); Sodium 138 mmol/L (137-145); Total Bilirubin 0.8 mg/dL (0.2-1.3); Total Protein 4.4 g/dL (6.3-8.2)
[2020-10-24] MEDS: IPRATROPIUM-ALBUTEROL 3 ML NEB INHALATION SCH ×4 (08:41→19:57)
[2020-10-24] MEDS: BUDESONIDE 1 MG/2 ML NEBU INHALATION SCH ×2 (08:41→16:07)
--- NOTE | 2020-10-24 11:23 | XR ---
EXAMINATION TYPE: XR chest 2V DATE OF EXAM: 10/24/2020 COMPARISON: 821 INDICATION: Short of breath TECHNIQUE: Frontal and lateral views of the chest are obtained. FINDINGS: The heart size is normal. The pulmonary vasculature is prominent. Scattered mild infiltrates are present bilaterally. A small left pleural effusion is present. A minim al right pleural effusion is present.. IMPRESSION: 1. Scattered bilateral lung infiltrates with small left and minimal right pleural effusions. Findings of slight improvement from comparison. Continued follow-up is recommended
--- NOTE | 2020-10-24 12:48 | P.PN ---
Subjective Progress Note Date: 10/24/20 CHIEF COMPLAINT: Abdominal pain HISTORY OF PRESENT ILLNESS: Patient currently denies any abdominal pain. Denies any nausea or vomiting. He was able to eat oatmeal this morning. He is awaiting transfer to [facility] for ERCP procedure. Gallbladder ultrasound shows cholelithiasis with mild wall thickness. Negative sonographic Ugalde sign. Findings are equivocal for acute cholecystitis. Nonspecific 8 mm dilated CBD. Afebrile. WBC is 8.1 hemoglobin 8.8 sodium 138 potassium 3.6 magnesium 1.8 total bilirubin normal at 0.8 AST 36 ALT 60 and alk phos 339 PHYSICAL EXAM: VITAL SIGNS: Reviewed GENERAL: Well-developed in no acute distress. HEENT: No sclera icterus. Extraocular movements grossly intact. Moist buccal mucosa. Head is atraumatic, normocephalic. Hears conversational speech. No nasal drainage. NECK: Supple without lymphadenopathy. CHEST: Non-labored respirations and equal bilateral excursions. CARDIOVASCULAR: Palpable 2+ radial pulses. ABDOMEN: Soft. Nondistended. Nontender MUSCULOSKELETAL: No clubbing or cyanosis. NEUROLOGIC: No focal or lateralizing signs. Cranial nerves II through XII grossly intact. PSYCH: Appropriate affect. Alert and oriented to person, place and time. SKIN: Well perfused. Good skin turgor. ASSESSMENT: 1. Ascending cholangitis 2. Choledocholithiasis 3. Symptomatic cholelithiasis 4. History of acute splenic rupture status post splenectomy 5. Congestive heart failure exacerbation 6. Hypokalemia and hypomagnesemia improved with supplement PLAN: -Patient is awaiting bed availability for transfer to [facility] for ERCP -Continue supportive care -Continue low-fat diet Physician Digital Project Coordinator note has been reviewed by physician. Signing provider agrees with the documented findings, assessment, and plan of care. Objective - Vital Signs Vital signs: Vital Signs Temp 97.7 F 10/24/20 08:12 Pulse 65 10/24/20 12:00 Resp 16 10/24/20 12:00 BP 172/74 10/24/20 12:00 Pulse Ox 97 10/24/20 12:00 Intake & Output 10/23/20 10/24/20 10/24/20 18:59 06:59 18:59 Intake Total 360 120 Output Total 200 Balance 360 -200 120 Weight 49.5 kg 49.5 kg Intake: Oral 360 120 Output: Urine 200 Other: Voiding Method Toilet # Voids 200 1 # Bowel Movements 1 - Labs CBC & Chem 7: 10/24/20 07:45 10/24/20 07:45 Labs: Abnormal Lab Results - Last 24 Hours (Table) 10/24/20 10/24/20 Range/Units 07:45 07:45 RBC 2.88 L (4.30-5.90) m/uL Hgb 8.8 L (13.0-17.5) gm/dL Hct 27.2 L (39.0-53.0) % RDW 18.3 H (11.5-15.5) % Chloride 113 H (98-107) mmol/L Calcium 7.8 L (8.4-10.2) mg/dL ALT 60 H (4-49) U/L Alkaline Phosphatase 339 H (38-126) U/L Total Protein 4.4 L (6.3-8.2) g/dL Albumin 2.2 L (3.5-5.0) g/dL Microbiology - Last 24 Hours (Table) 10/20/20 11:18 Blood Culture - Preliminary Blood No Growth after 72 hours 10/20/20 11:23 Blood Culture - Preliminary Blood No Growth after 72 hours
--- NOTE | 2020-10-24 12:53 | P.PN ---
Subjective Progress Note Date: 10/24/20 Patient was resting comfortably this morning. He was noted to be significantly hypertensive overnight and this morning systolic blood pressure was 220. Patient was given 10 mg IV hydralazine and his home dose of lisinopril 40 mg daily was resumed. We will continue to monitor blood pressure closely. Objective - Vital Signs Vital signs: Vital Signs Temp 97.7 F 10/24/20 08:12 Pulse 65 10/24/20 12:00 Resp 16 10/24/20 12:00 BP 172/74 10/24/20 12:00 Pulse Ox 97 10/24/20 12:00 Intake & Output 10/23/20 10/24/20 10/24/20 18:59 06:59 18:59 Intake Total 360 120 Output Total 200 Balance 360 -200 120 Weight 49.5 kg 49.5 kg Intake: Oral 360 120 Output: Urine 200 Other: Voiding Method Toilet # Voids 200 1 # Bowel Movements 1 - Exam General: The patient is awake and alert, in no distress Eye: there is normal conjunctiva bilaterally. Neck: The neck is supple, there is no JVD. Cardiovascular: Normal S1-S2, no S3-S4, no murmurs. Respiratory: Lungs clear to auscultation bilaterally Gastrointestinal: Abdomen is soft, nontender Musculoskeletal: There is no pedal edema. Neurological:. Speech is normal. Skin: Skin is warm and dry - Labs CBC & Chem 7: 10/24/20 07:45 10/24/20 07:45 Labs: Abnormal Lab Results - Last 24 Hours (Table) 10/24/20 10/24/20 Range/Units 07:45 07:45 RBC 2.88 L (4.30-5.90) m/uL Hgb 8.8 L (13.0-17.5) gm/dL Hct 27.2 L (39.0-53.0) % RDW 18.3 H (11.5-15.5) % Chloride 113 H (98-107) mmol/L Calcium 7.8 L (8.4-10.2) mg/dL ALT 60 H (4-49) U/L Alkaline Phosphatase 339 H (38-126) U/L Total Protein 4.4 L (6.3-8.2) g/dL Albumin 2.2 L (3.5-5.0) g/dL Microbiology - Last 24 Hours (Table) 10/20/20 11:18 Blood Culture - Preliminary Blood No Growth after 72 hours 10/20/20 11:23 Blood Culture - Preliminary Blood No Growth after 72 hours Assessment and Plan Assessment: This is a 85-year-old male with a very complex past medical history who was recently discharged from the hospital after a prolonged hospitalization when he presented with acute ascending cholangitis was treated with aggressive IV fluid hydration and antibiotic and subsequently an ERCP was attempted but was not successful. At the time plan was to transfer him to [facility] for advanced GI evaluation. 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 His condition stabilized and patient was discharged home in a stable condition. He returned to the hospital with worsening abdominal pain and was found to have elevated bilirubin and elevated liver enzymes. Patient was admitted to the hospital and seen and evaluated by general surgery. He was started on broad- spectrum antibiotic with Zosyn day #6 to treat suspected ascending colitis. Gen. surgery advised the patient need to be transferred to [facility] for ERCP. Ultrasound of the abdomen in the ER showed a 1 cm calculus in the lower bile duct. Also patient was found to have troponin elevation so cardiology consulted. He denied any chest pain. 12-lead EKG showed no acute ischemic changes. This was thought to be a non-thrombotic troponin leak. Echocardiogram showed a preserved ejection fraction with no significant valvular abnormalities or wall motion abnormalities. Patient was started on IV Lasix by cardiology for suspected diastolic heart failure exacerbation. Patient had problems with hypokalemia that was replaced. His blood pressure was noted to be not well controlled on home dose of lisinopril 40 mg daily was resumed. Norvasc 5 mg daily added to his regimen. We will continue to monitor blood pressure closely. His overall condition remains stable. Liver enzymes trending down. Bilirubin back to normal down from 3.0 on presentation. Awaiting bed availability at [facility] for ERCP. Repeat lab work in the morning. Hoping patient will be transferred later today.
[2020-10-24] MEDS: amLODIPine 5 MG TAB PO SCH (15:49)
--- NOTE | 2020-10-24 18:41 | PN ---
PROGRESS NOTE DATE OF SERVICE: 10/24/2020 REASON FOR FOLLOWUP: Pneumonia and cholangitis. INTERVAL HISTORY: The patient is afebrile. The patient is breathing comfortably. Denies having any chest pain or shortness of breath or cough. Abdominal pain is currently controlled. No vomiting or diarrhea. PHYSICAL EXAMINATION: Blood pressure 172/74, pulse of 65, temperature 97.7. He is 97% on room air. GENERAL DESCRIPTION: General description is an elderly male lying in bed in no distress. RESPIRATORY SYSTEM: Unlabored breathing. Decreased breath sounds at the bases. No wheeze. HEART: S1, S2. Regular rate and rhythm. ABDOMEN: Soft. Incision is currently intact and healing. No tenderness. EXTREMITIES: No edema of the feet. LABS: Hemoglobin is 8.3, white count 8.1. BUN of 9, creatinine 0.78. DIAGNOSTIC IMPRESSION AND PLAN: Patient with left lower lobe pneumonia and concern for ascending cholangitis. Patient's overall fever has resolved. White count has normalized. Currently on Zosyn. Will transition to oral antibiotic on discharge. Continue with supportive care. the patient with concern for possible cholecystitis. MMODL / IJN: [id number] /
[2020-10-25] MEDS: PIPERACILLIN-TAZOBACTAM 3.375 GM in SODIUM CHLORIDE 0.9% 100 ML IVPB SCH ×3 (05:46→20:21)
[2020-10-25] MEDS: BUDESONIDE 1 MG/2 ML NEBU INHALATION SCH ×2 (07:48→19:59)
[2020-10-25] MEDS: IPRATROPIUM-ALBUTEROL 3 ML NEB INHALATION SCH ×4 (07:48→19:59)
[2020-10-25] MEDS: HEPARIN SODIUM,PORCINE/PF 5,000 UNIT/0.5 ML SYRINGE SQ SCH ×3 (08:32→23:30)
[2020-10-25] MEDS: METOPROLOL TARTRATE 12.5 MG TAB PO SCH ×2 (08:32→20:21)
[2020-10-25] MEDS: TAMSULOSIN 0.4 MG CAP.ER.24H PO SCH (08:33)
[2020-10-25] MEDS: POTASSIUM CHLORIDE ER 20 MEQ TAB.ER PO SCH (08:33)
[2020-10-25] MEDS: amLODIPine 5 MG TAB PO SCH (08:33)
[2020-10-25] MEDS: lisinopriL 20 MG TAB PO SCH (08:33)
[2020-10-25] MEDS: predniSONE 10 MG TAB PO SCH (08:33)
--- NOTE | 2020-10-25 12:09 | P.PN ---
Subjective Progress Note Date: 10/25/20 Patient is doing fairly well today. He is frustrated as there is still no bed availability at . He does not have other complaints Objective - Vital Signs Vital signs: Vital Signs Temp 97.6 F 10/25/20 08:30 Pulse 80 10/25/20 08:30 Resp 18 10/25/20 08:30 BP 170/52 10/25/20 08:30 Pulse Ox 98 10/25/20 08:30 Intake & Output 10/24/20 10/25/20 10/25/20 18:59 06:59 18:59 Intake Total 640 480 240 Output Total 0 Balance 640 480 240 Weight 49.5 kg 48.8 kg Intake: Intake, IV Titration 100 Amount Piperacillin-Tazobactam 3 100 .375 gm In Sodium Chloride 0.9% 100 ml @ 25 mls/hr IVPB Q8H [facility] Rx#: [id number] Oral 540 480 240 Output: Stool 0 Other: Voiding Method Toilet Toilet # Voids 1 1 1 # Bowel Movements 1 - Exam General: The patient is awake and alert, in no distress Eye: there is normal conjunctiva bilaterally. Neck: The neck is supple, there is no JVD. Cardiovascular: Normal S1-S2, no S3-S4, no murmurs. Respiratory: Lungs clear to auscultation bilaterally Gastrointestinal: Abdomen is soft, nontender Musculoskeletal: There is no pedal edema. Neurological:. Speech is normal. Skin: Skin is warm and dry - Labs CBC & Chem 7: 10/24/20 07:45 10/24/20 07:45 Labs: Microbiology - Last 24 Hours (Table) 10/20/20 11:18 Blood Culture - Preliminary Blood No Growth after 96 hours 10/20/20 11:23 Blood Culture - Preliminary Blood No Growth after 96 hours Assessment and Plan Assessment: This is a 85-year-old male with a very complex past medical history who was recently discharged from the hospital after a prolonged hospitalization when he presented with acute ascending cholangitis was treated with aggressive IV fluid hydration and antibiotic and subsequently an ERCP was attempted but was not successful. At the time plan was to transfer him to for advanced GI evaluation. 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 His condition stabilized and patient was discharged home in a stable condition. He returned to the hospital with worsening abdominal pain and was found to have elevated bilirubin and elevated liver enzymes. Patient was admitted to the hospital and seen and evaluated by general surgery. He was started on broad- spectrum antibiotic with Zosyn day #6 to treat suspected ascending colitis. Gen. surgery advised the patient need to be transferred to for ERCP. Ultrasound of the abdomen in the ER showed a 1 cm calculus in the lower bile duct. Also patient was found to have troponin elevation so cardiology consulted. He denied any chest pain. 12-lead EKG showed no acute ischemic changes. This was thought to be a non-thrombotic troponin leak. Echocardiogram showed a preserved ejection fraction with no significant valvular abnormalities or wall motion abnormalities. Patient was started on IV Lasix by cardiology for suspected diastolic heart failure exacerbation. Patient had problems with hypokalemia that was replaced. His blood pressure was noted to be not well controlled on home dose of lisinopril 40 mg daily was resumed. Norvasc 5 mg daily added to his regimen. We will continue to monitor blood pressure closely. His overall condition remains stable. Liver enzymes trending down. Bilirubin back to normal down from 3.0 on presentation. Awaiting bed availability at for ERCP. Repeat lab work in the morning. Hoping patient will be transferred later today.
--- NOTE | 2020-10-25 13:01 | P.PN ---
Subjective Progress Note Date: 10/25/20 CHIEF COMPLAINT: Choledocholithiasis HISTORY OF PRESENT ILLNESS: The patient is a 85-year-old male with complicated history of choledocholithiasis who presented to the hospital with acute ascending cholangitis. Ultrasound on initial presentation to the hospital demonstrated a common bile duct stone. Repeat ultrasound demonstrates no identifiable common bile duct stone. Patient does have multiple gallstones. He tolerated low fat meal. He denies any abdominal pain. Significant other at bedside reports that she gave him eggs to eat with resultant abdominal pain. ROS: No reports of nausea and vomiting. No fevers or chills. No new chest pain. PHYSICAL EXAM: VITAL SIGNS: Reviewed CONSTITUTIONAL: Well developed and in no acute distress. EYES: Conjuctivae without sclera icterus. Extraocular movements grossly intact. HEAD, EARS, NOSE, THROAT: Moist buccal mucosa. Head is atraumatic, normocephalic. Extremely hard of hearing. Hears best from left ear. NECK: No gross thyroidomegaly. No jugular venous distention. RESPIRATORY: Non-labored respirations and equal bilateral excursions. CARDIOVASCULAR: Palpable 2+ radial pulses. ABDOMEN: Non-tender. MUSCULOSKELETAL: No gross deformity of the lower extremities noted. No clubbing. No cyanosis. SKIN: Good skin turgor. Well perfused. NEUROLOGIC: Cranial nerves II through XII grossly intact. No focal or lateralizing signs. PSYCH: Appropriate affect. Alert and oriented to person, place and time. CLINICAL LABS: White blood cell count normal at 8.1. LFTs slowly improving. ASSESSMENT: 1. Choledocholithiasis due to gallstones PLAN: 1. Patient has been pending transfer to [facility] for ERCP for choled ocholithiasis 2. Per family, she is concerned for COVID in [place] 3. Patient is high risk for surgical intervention as he is less than 30 days from his splenectomy. 4. Ideally cholecystectomy described to prevent further common bile duct stones. Continue strict low fat diet 5. Will assess for tentative cholecystectomy if patient is still present after 30 days from index operation. Objective - Vital Signs Vital signs: Vital Signs Temp 97.6 F 10/25/20 08:30 Pulse 80 10/25/20 08:30 Resp 18 10/25/20 08:30 BP 170/52 10/25/20 08:30 Pulse Ox 98 10/25/20 08:30 Intake & Output 10/24/20 10/25/20 10/25/20 18:59 06:59 18:59 Intake Total 640 480 240 Output Total 0 Balance 640 480 240 Weight 49.5 kg 48.8 kg Intake: Intake, IV Titration 100 Amount Piperacillin-Tazobactam 3 100 .375 gm In Sodium Chloride 0.9% 100 ml @ 25 mls/hr IVPB Q8H [facility] Rx#: [id number] Oral 540 480 240 Output: Stool 0 Other: Voiding Method Toilet Toilet # Voids 1 1 1 # Bowel Movements 1 - Labs CBC & Chem 7: 10/24/20 07:45 10/24/20 07:45 Labs: Microbiology - Last 24 Hours (Table) 10/20/20 11:18 Blood Culture - Preliminary Blood No Growth after 96 hours 10/20/20 11:23 Blood Culture - Preliminary Blood No Growth after 96 hours
--- NOTE | 2020-10-25 17:31 | PN ---
PROGRESS NOTE DATE OF SERVICE: 10/25/2020 REASON FOR FOLLOWUP: Left lower lobe pneumonia and possible cholangitis. INTERVAL HISTORY: The patient is afebrile. The patient is currently breathing comfortably. No chest pain, shortness of breath or cough. No nausea or diarrhea. PHYSICAL EXAMINATION: Blood pressure 160/64, pulse of 69, temperature 98.2. He is 98% on room air. GENERAL DESCRIPTION: General description is an elderly male lying in bed in no distress. RESPIRATORY SYSTEM: Unlabored breathing. Clear to auscultation anteriorly. HEART: S1, S2. Regular rate and rhythm. ABDOMEN: Soft. No tenderness. LABS: Hemoglobin is 8.9, white cell count 8.1 with BUN of 9, creatinine 0.78. DIAGNOSTIC IMPRESSION AND PLAN: Patient with a fever. Source is left lower lobe pneumonia and concern for cholangitis in this patient who did have choledocholithiasis. The patient is currently pending transfer to [facility] for ERCP. [facility] and monitor his clinical course closely. MMODL / IJN: [id number] /
[2020-10-26] MEDS: PIPERACILLIN-TAZOBACTAM 3.375 GM in SODIUM CHLORIDE 0.9% 100 ML IVPB SCH ×3 (05:42→20:57)
[2020-10-26] MEDS: IPRATROPIUM-ALBUTEROL 3 ML NEB INHALATION SCH ×4 (07:29→19:15)
[2020-10-26] MEDS: BUDESONIDE 1 MG/2 ML NEBU INHALATION SCH ×2 (07:29→19:15)
[2020-10-26 07:37] LABS: Anisocytosis Slight; Basophils % (A) 1 %; Eosinophils # (A) 0.3 k/uL (0-0.7); Eosinophils % (A) 4 %; HGB 7.9 gm/dL (13.0-17.5); Hypochromasia Moderate; Lymphocytes # (A) 1.5 k/uL (1.0-4.8); Lymphocytes % (A) 19 %; MCH 30.6 pg (25.0-35.0); MCHC 31.8 g/dL (31.0-37.0); MCV 96.3 fL (80.0-100.0); Macrocytosis Slight; Mean Platelet Volume 10.7; Monocytes # (A) 0.4 k/uL (0-1.0); Monocytes % (A) 5 %; Neutrophils # (A) 5.5 k/uL (1.3-7.7); Neutrophils % (A) 70 %; Platelet Count 214 k/uL (150-450); RBC 2.59 m/uL (4.30-5.90); RDW 18.8 % (11.5-15.5); WBC 7.9 k/uL (3.8-10.6)
[2020-10-26 08:05] LABS: ALT 40 U/L (4-49); AST 27 U/L (17-59); African American GFR (CKD) >90 (>60 ml/min/1.73 sqM); Albumin 1.9 g/dL (3.5-5.0); Alkaline Phosphatase 213 U/L (38-126); Anion Gap 2 mmol/L; Blood Urea Nitrogen 10 mg/dL (9-20); Calcium 7.7 mg/dL (8.4-10.2); Carbon Dioxide 22 mmol/L (22-30); Chloride 114 mmol/L (98-107); Glucose 75 mg/dL (74-99); Non-African American GFR(CKD) 81 (>60 ml/min/1.73 sqM); Potassium 3.3 mmol/L (3.5-5.1); Sodium 138 mmol/L (137-145); Total Bilirubin 0.6 mg/dL (0.2-1.3); Total Protein 3.9 g/dL (6.3-8.2)
[2020-10-26] MEDS: HEPARIN SODIUM,PORCINE/PF 5,000 UNIT/0.5 ML SYRINGE SQ SCH ×3 (08:19→23:37)
[2020-10-26] MEDS: amLODIPine 5 MG TAB PO SCH (08:20)
[2020-10-26] MEDS: predniSONE 10 MG TAB PO SCH (08:20)
[2020-10-26] MEDS: POTASSIUM CHLORIDE ER 20 MEQ TAB.ER PO SCH (08:20)
[2020-10-26] MEDS: lisinopriL 20 MG TAB PO SCH (08:20)
[2020-10-26] MEDS: TAMSULOSIN 0.4 MG CAP.ER.24H PO SCH (08:20)
[2020-10-26] MEDS: METOPROLOL TARTRATE 12.5 MG TAB PO SCH ×2 (08:20→20:09)
--- NOTE | 2020-10-26 16:49 | P.PN ---
Subjective Progress Note Date: 10/26/20 Patient is doing fairly well today. He still awaiting transfer to [facility] for ERCP. He does not have other complaints Objective - Vital Signs Vital signs: Vital Signs Temp 97.5 F L 10/26/20 15:50 Pulse 73 10/26/20 15:50 Resp 16 10/26/20 15:50 BP 153/63 10/26/20 15:50 Pulse Ox 99 10/26/20 15:50 Intake & Output 10/25/20 10/26/20 10/26/20 18:59 06:59 18:59 Intake Total 580 480 236 Output Total 0 0 Balance 580 480 236 Weight 48.4 kg Intake: Intake, IV Titration 100 Amount Piperacillin-Tazobactam 3 100 .375 gm In Sodium Chloride 0.9% 100 ml @ 25 mls/hr IVPB Q8H [facility] Rx#: [id number] Oral 480 480 236 Output: Stool 0 0 Other: Voiding Method Toilet Toilet Toilet # Voids 1 2 1 # Bowel Movements 1 - Exam General: The patient is awake and alert, in no distress Eye: there is normal conjunctiva bilaterally. Neck: The neck is supple, there is no JVD. Cardiovascular: Normal S1-S2, no S3-S4, no murmurs. Respiratory: Lungs clear to auscultation bilaterally Gastrointestinal: Abdomen is soft, nontender Musculoskeletal: There is no pedal edema. Neurological:. Speech is normal. Skin: Skin is warm and dry - Labs CBC & Chem 7: 10/26/20 07:11 10/26/20 07:11 Labs: Abnormal Lab Results - Last 24 Hours (Table) 10/26/20 10/26/20 Range/Units 07:11 07:11 RBC 2.59 L (4.30-5.90) m/uL Hgb 7.9 L (13.0-17.5) gm/dL Hct 25.0 L (39.0-53.0) % RDW 18.8 H (11.5-15.5) % Potassium 3.3 L (3.5-5.1) mmol/L Chloride 114 H (98-107) mmol/L Calcium 7.7 L (8.4-10.2) mg/dL Alkaline Phosphatase 213 H (38-126) U/L Total Protein 3.9 L (6.3-8.2) g/dL Albumin 1.9 L (3.5-5.0) g/dL Microbiology - Last 24 Hours (Table) 10/20/20 11:18 Blood Culture - Final Blood No Growth after 144 hours 10/20/20 11:23 Blood Culture - Final Blood No Growth after 144 hours Assessment and Plan Assessment: This is a 85-year-old male with a very complex past medical history who was recently discharged from the hospital after a prolonged hospitalization when he presented with acute ascending cholangitis was treated with aggressive IV fluid hydration and antibiotic and subsequently an ERCP was attempted but was not successful. At the time plan was to transfer him to [facility] for advanced GI evaluation. 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 His condition stabilized and patient was discharged home in a stable condition. He returned to the hospital with worsening abdominal pain and was found to have elevated bilirubin and elevated liver enzymes. Patient was admitted to the hospital and seen and evaluated by general surgery. He was started on broad- spectrum antibiotic with Zosyn day #6 to treat suspected ascending colitis. Gen. surgery advised the patient need to be transferred to [facility] for ERCP. Ultrasound of the abdomen in the ER showed a 1 cm calculus in the lower bile duct. Also patient was found to have troponin elevation so cardiology consulted. He denied any chest pain. 12-lead EKG showed no acute ischemic changes. This was thought to be a non-thrombotic troponin leak. Echocardiogram showed a preserved ejection fraction with no significant valvular abnormalities or wall motion abnormalities. Patient was started on IV Lasix by cardiology for suspected diastolic heart failure exacerbation. Patient had problems with hypokalemia that was replaced. His blood pressure was noted to be not well controlled on home dose of lisinopril 40 mg daily was resumed. Norvasc 5 mg daily added to his regimen. We will continue to monitor blood pressure closely. His overall condition remains stable. Liver enzymes trending down. Bilirubin back to normal down from 3.0 on presentation. Awaiting bed availability at [facility] for ERCP. Repeat lab work in the morning.
--- NOTE | 2020-10-26 18:16 | PN ---
PROGRESS NOTE DATE OF SERVICE: 10/26/2020. REASON FOR FOLLOWUP: Left lower lobe pneumonia and cholangitis. INTERVAL HISTORY: The patient is afebrile. The patient is breathing comfortably. No chest pain, shortness of breath or cough. No abdominal pain or diarrhea. PHYSICAL EXAMINATION: Blood pressure 153/63, pulse of 73, temperature 97.5. He is 99% on room air. GENERAL DESCRIPTION: General description is an elderly male lying in bed in no distress. RESPIRATORY SYSTEM: Unlabored breathing. Clear to auscultation anteriorly. HEART: S1, S2. Regular rate and rhythm. ABDOMEN: Soft. No tenderness. LABS: Blood culture negative. White count is normal. DIAGNOSTIC IMPRESSION AND PLAN: Patient admitted to hospital with fever, elevated white count concerning for a left lower lobe pneumonia and cholangitis. Waiting for transfer to [facility] for ERCP. The patient is covered with Zosyn; to continue and monitor his clinical course closely. MMODL / IJN: [id number] /
--- NOTE | 2020-10-26 19:42 | P.PN ---
Subjective Progress Note Date: 10/26/20 CHIEF COMPLAINT: Choledocholithiasis HISTORY OF PRESENT ILLNESS: The patient is a 85-year-old male with complicated history of choledocholithiasis who presented to the hospital with acute ascending cholangitis. his LFTs are slowly improving. He denies abdominal pain. He reports drainage from his left upper abdomen ANDREA site. ROS: No reports of nausea and vomiting. No fevers or chills. No new chest pain. PHYSICAL EXAM: VITAL SIGNS: Reviewed CONSTITUTIONAL: Well developed and in no acute distress. EYES: Conjuctivae without sclera icterus. Extraocular movements grossly intact. HEAD, EARS, NOSE, THROAT: Moist buccal mucosa. Head is atraumatic, normocephalic. Extremely hard of hearing. Hears best from left ear. NECK: No gross thyroidomegaly. No jugular venous distention. RESPIRATORY: Non-labored respirations and equal bilateral excursions. CARDIOVASCULAR: Palpable 2+ radial pulses. ABDOMEN: Non-tender. All unique removed. No active drainage along left upper abdomen puncture site. MUSCULOSKELETAL: No gross deformity of the lower extremities noted. No clubbing. No cyanosis. SKIN: Good skin turgor. Well perfused. NEUROLOGIC: Cranial nerves II through XII grossly intact. No focal or lateralizing signs. PSYCH: Appropriate affect. Alert and oriented to person, place and time. CLINICAL LABS: Reveiwed. White blood cell count normal at 7.9. Total bilirubin normal at 0.6. Hgb 7.9 ASSESSMENT: 1. Choledocholithiasis due to gallstones 2. Anemia. PLAN: 1. Still awaiting transfer for ERCP for persistent choledocholithiasis 2. He is high surgical risk for additional surgical intervention prior to 30 days from his index operation Objective - Vital Signs Vital signs: Vital Signs Temp 97.5 F L 10/26/20 15:50 Pulse 73 10/26/20 15:50 Resp 16 10/26/20 15:50 BP 153/63 10/26/20 15:50 Pulse Ox 99 10/26/20 15:50 Intake & Output 10/26/20 10/26/20 10/27/20 06:59 18:59 06:59 Intake Total 480 672 Output Total 0 Balance 480 672 Weight 48.4 kg Intake: Intake, IV Titration 200 Amount Piperacillin-Tazobactam 3 200 .375 gm In Sodium Chloride 0.9% 100 ml @ 25 mls/hr IVPB Q8H [facility] Rx#: [id number] Oral 480 472 Output: Stool 0 Other: Voiding Method Toilet Toilet # Voids 2 1 - Labs CBC & Chem 7: 10/26/20 07:11 10/26/20 07:11 Labs: Abnormal Lab Results - Last 24 Hours (Table) 10/26/20 10/26/20 Range/Units 07:11 07:11 RBC 2.59 L (4.30-5.90) m/uL Hgb 7.9 L (13.0-17.5) gm/dL Hct 25.0 L (39.0-53.0) % RDW 18.8 H (11.5-15.5) % Potassium 3.3 L (3.5-5.1) mmol/L Chloride 114 H (98-107) mmol/L Calcium 7.7 L (8.4-10.2) mg/dL Alkaline Phosphatase 213 H (38-126) U/L Total Protein 3.9 L (6.3-8.2) g/dL Albumin 1.9 L (3.5-5.0) g/dL Microbiology - Last 24 Hours (Table) 10/20/20 11:18 Blood Culture - Final Blood No Growth after 144 hours 10/20/20 11:23 Blood Culture - Final Blood No Growth after 144 hours
[2020-10-27] MEDS: PIPERACILLIN-TAZOBACTAM 3.375 GM in SODIUM CHLORIDE 0.9% 100 ML IVPB SCH ×2 (05:43→19:48)
[2020-10-27] MEDS: HEPARIN SODIUM,PORCINE/PF 5,000 UNIT/0.5 ML SYRINGE SQ SCH ×3 (08:37→23:41)
[2020-10-27] MEDS: lisinopriL 20 MG TAB PO SCH (08:38)
[2020-10-27] MEDS: amLODIPine 5 MG TAB PO SCH ×2 (08:38→19:48)
[2020-10-27] MEDS: predniSONE 10 MG TAB PO SCH (08:38)
[2020-10-27] MEDS: POTASSIUM CHLORIDE ER 20 MEQ TAB.ER PO SCH (08:38)
[2020-10-27] MEDS: METOPROLOL TARTRATE 12.5 MG TAB PO SCH ×2 (08:38→19:48)
[2020-10-27] MEDS: TAMSULOSIN 0.4 MG CAP.ER.24H PO SCH (08:38)
[2020-10-27] MEDS: BUDESONIDE 1 MG/2 ML NEBU INHALATION SCH ×2 (09:22→19:56)
[2020-10-27] MEDS: IPRATROPIUM-ALBUTEROL 3 ML NEB INHALATION SCH ×4 (09:22→19:56)
--- NOTE | 2020-10-27 11:15 | P.PN ---
Subjective Progress Note Date: 10/27/20 Patient was resting this morning when I saw her. Blood pressure still not well controlled. No acute events overnight reported by nursing staff. Objective - Vital Signs Vital signs: Vital Signs Temp 98.2 F 10/27/20 08:35 Pulse 79 10/27/20 08:35 Resp 22 10/27/20 08:35 BP 173/58 10/27/20 08:35 Pulse Ox 97 10/27/20 08:35 Intake & Output 10/26/20 10/27/20 10/27/20 18:59 06:59 18:59 Intake Total 672 480 580 Output Total 0 Balance 672 480 580 Weight 47.9 kg Intake: Intake, IV Titration 200 100 Amount Piperacillin-Tazobactam 3 200 100 .375 gm In Sodium Chloride 0.9% 100 ml @ 25 mls/hr IVPB Q8H [facility] Rx#: [id number] Oral 472 480 480 Output: Stool 0 Other: Voiding Method Toilet Toilet Toilet # Voids 1 2 - Exam General: The patient is awake and alert, in no distress Eye: there is normal conjunctiva bilaterally. Neck: The neck is supple, there is no JVD. Cardiovascular: Normal S1-S2, no S3-S4, no murmurs. Respiratory: Lungs clear to auscultation bilaterally Gastrointestinal: Abdomen is soft, nontender Musculoskeletal: There is no pedal edema. Neurological:. Speech is normal. Skin: Skin is warm and dry - Labs CBC & Chem 7: 10/26/20 07:11 10/26/20 07:11 Labs: Microbiology - Last 24 Hours (Table) 10/20/20 11:18 Blood Culture - Final Blood No Growth after 144 hours 10/20/20 11:23 Blood Culture - Final Blood No Growth after 144 hours Assessment and Plan Assessment: This is a 85-year-old male with a very complex past medical history who was recently discharged from the hospital after a prolonged hospitalization when he presented with acute ascending cholangitis was treated with aggressive IV fluid hydration and antibiotic and subsequently an ERCP was attempted but was not successful. At the time plan was to transfer him to [facility] for advanced GI evaluation. 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 His condition stabilized and patient was discharged home in a stable condition. He returned to the hospital with worsening abdominal pain and was found to have elevated bilirubin and elevated liver enzymes. Patient was admitted to the hospital and seen and evaluated by general surgery. He was started on broad- spectrum antibiotic with Zosyn day #6 to treat suspected ascending colitis. Gen. surgery advised the patient need to be transferred to [facility] for ERCP. Ultrasound of the abdomen in the ER showed a 1 cm calculus in the lower bile duct. Also patient was found to have troponin elevation so cardiology consulted. He denied any chest pain. 12-lead EKG showed no acute ischemic changes. This was thought to be a non-thrombotic troponin leak. Echocardiogram showed a preserved ejection fraction with no significant valvular abnormalities or wall motion abnormalities. Patient was started on IV Lasix by cardiology for suspected diastolic heart failure exacerbation. Patient had problems with hypokalemia that was replaced. His blood pressure was noted to be not well controlled on home dose of lisinopril 40 mg daily was resumed. Norvasc 5 mg daily added to his regimen which I would increase to twice daily today. We will continue to monitor blood pressure closely. His overall condition remains stable. Liver enzymes trending down. Bilirubin back to normal down from 3.0 on presentation. Awaiting bed availability at [facility] for ERCP. Repeat lab work in the morning.
--- NOTE | 2020-10-27 12:26 | P.PN ---
Subjective Progress Note Date: 10/27/20 CHIEF COMPLAINT: Choledocholithiasis HISTORY OF PRESENT ILLNESS: The patient is a 85-year-old male with complicated history of choledocholithiasis who presented to the hospital with acute ascending cholangitis. His total bilirubin and LFTs are normal or trending down. No reports of abdominal pain. He is tolerating low-fat diet. He is resting comfortably. He is awaiting transfer to [facility] for ERCP. ROS: No reports of nausea and vomiting. No fevers or chills. No new chest pain. PHYSICAL EXAM: VITAL SIGNS: Reviewed CONSTITUTIONAL: Well developed and in no acute distress. EYES: Conjuctivae without sclera icterus. Extraocular movements grossly intact. HEAD, EARS, NOSE, THROAT: Moist buccal mucosa. Head is atraumatic, normocephalic. Extremely hard of hearing. Hears best from left ear. NECK: No gross thyroidomegaly. No jugular venous distention. RESPIRATORY: Non-labored respirations and equal bilateral excursions. CARDIOVASCULAR: Palpable 2+ radial pulses. ABDOMEN: No cellulitis or infection and without unique. MUSCULOSKELETAL: No gross deformity of the lower extremities noted. No clubbing. No cyanosis. SKIN: Good skin turgor. Well perfused. NEUROLOGIC: Cranial nerves II through XII grossly intact. No focal or lateralizing signs. CLINICAL LABS: Reviewed. LFTs trending down. No new labs today. ASSESSMENT: 1. Choledocholithiasis due to gallstones 2. Anemia. PLAN: 1. At this time still awaiting transfer for ERCP. 2. Cholecystectomy described after 30 days from his index operation for decreased surgical risk Objective - Vital Signs Vital signs: Vital Signs Temp 98.2 F 10/27/20 08:35 Pulse 79 10/27/20 08:35 Resp 22 10/27/20 08:35 BP 173/58 10/27/20 08:35 Pulse Ox 97 10/27/20 08:35 Intake & Output 10/26/20 10/27/20 10/27/20 18:59 06:59 18:59 Intake Total 672 480 580 Output Total 0 Balance 672 480 580 Weight 47.9 kg Intake: Intake, IV Titration 200 100 Amount Piperacillin-Tazobactam 3 200 100 .375 gm In Sodium Chloride 0.9% 100 ml @ 25 mls/hr IVPB Q8H [facility] Rx#: [id number] Oral 473 634 281 Output: Stool 0 Other: Voiding Method Toilet Toilet Toilet # Voids 1 2 - Labs CBC & Chem 7: 10/26/20 07:11 10/26/20 07:11 Labs: Microbiology - Last 24 Hours (Table) 10/20/20 11:18 Blood Culture - Final Blood No Growth after 144 hours 10/20/20 11:23 Blood Culture - Final Blood No Growth after 144 hours
[2020-10-27 12:30] LABS: ALT 36 U/L (4-49); AST 30 U/L (17-59); African American GFR (CKD) >90 (>60 ml/min/1.73 sqM); Albumin 1.9 g/dL (3.5-5.0); Alkaline Phosphatase 192 U/L (38-126); Anion Gap 3 mmol/L; Blood Urea Nitrogen 12 mg/dL (9-20); Calcium 7.8 mg/dL (8.4-10.2); Carbon Dioxide 22 mmol/L (22-30); Chloride 114 mmol/L (98-107); Glucose 134 mg/dL (74-99); Non-African American GFR(CKD) 80 (>60 ml/min/1.73 sqM); Potassium 3.4 mmol/L (3.5-5.1); Sodium 139 mmol/L (137-145); Total Bilirubin 0.3 mg/dL (0.2-1.3)
[2020-10-27 14:03] VITALS: BMI 20.6
--- NOTE | 2020-10-27 18:43 | PN ---
PROGRESS NOTE DATE OF SERVICE: 10/27/2020 REASON FOR FOLLOWUP: Pneumonia and cholangitis. INTERVAL HISTORY: The patient is afebrile. The patient is currently breathing comfortably. The patient denies having any chest pain, shortness of breath. Occasional cough. No abdominal pain. No vomiting or diarrhea. PHYSICAL EXAMINATION: On examination, blood pressure 158/59, pulse of 71, temperature 97.5. He is 98% on room air. GENERAL DESCRIPTION: General description is an elderly male lying in bed in no distress. RESPIRATORY SYSTEM: Unlabored breathing. Decreased breath sounds at the bases. No wheeze. HEART: S1, S2. Regular rate and rhythm. ABDOMEN: Soft. No tenderness. LABS: BUN of 12, creatinine 0.87. Liver enzymes have improved. Cultures have been negative. DIAGNOSTIC IMPRESSION AND PLAN: Patient with left lower lobe pneumonia and cholangitis in this patient with overall improvement on Zosyn. That will be continued while inpatient and is for possible ERCP on . Family at the bedside. Questions were answered. MMODL / IJN: [id number] /
[2020-10-28] MEDS: PIPERACILLIN-TAZOBACTAM 3.375 GM in SODIUM CHLORIDE 0.9% 100 ML IVPB SCH ×3 (02:30→18:08)
[2020-10-28] MEDS: IPRATROPIUM-ALBUTEROL 3 ML NEB INHALATION SCH ×4 (07:30→19:36)
[2020-10-28] MEDS: BUDESONIDE 1 MG/2 ML NEBU INHALATION SCH ×2 (07:30→19:36)
[2020-10-28] MEDS: HEPARIN SODIUM,PORCINE/PF 5,000 UNIT/0.5 ML SYRINGE SQ SCH ×2 (09:15→15:21)
[2020-10-28] MEDS: predniSONE 10 MG TAB PO SCH (09:16)
[2020-10-28] MEDS: POTASSIUM CHLORIDE ER 20 MEQ TAB.ER PO SCH (09:16)
[2020-10-28] MEDS: amLODIPine 5 MG TAB PO SCH ×2 (09:16→20:36)
[2020-10-28] MEDS: lisinopriL 20 MG TAB PO SCH (09:16)
[2020-10-28] MEDS: METOPROLOL TARTRATE 12.5 MG TAB PO SCH (09:16)
[2020-10-28] MEDS: TAMSULOSIN 0.4 MG CAP.ER.24H PO SCH (09:16)
[2020-10-28] MEDS ORDERED: METOPROLOL TARTRATE 12.5 MG TAB PO STA (09:43)
[2020-10-28 10:09] LABS: Anisocytosis Slight; Basophils % (A) 1 %; Eosinophils # (A) 0.2 k/uL (0-0.7); Eosinophils % (A) 3 %; HCT 26.1 % (39.0-53.0); HGB 8.6 gm/dL (13.0-17.5); Hypochromasia Moderate; Lymphocytes # (A) 1.3 k/uL (1.0-4.8); Lymphocytes % (A) 20 %; MCH 31.7 pg (25.0-35.0); MCHC 32.9 g/dL (31.0-37.0); MCV 96.4 fL (80.0-100.0); Macrocytosis Slight; Mean Platelet Volume 10.5; Monocytes # (A) 0.2 k/uL (0-1.0); Monocytes % (A) 3 %; Neutrophils # (A) 4.7 k/uL (1.3-7.7); Neutrophils % (A) 71 %; Platelet Count 276 k/uL (150-450); RBC 2.71 m/uL (4.30-5.90); RDW 19.5 % (11.5-15.5); WBC 6.5 k/uL (3.8-10.6)
[2020-10-28] MEDS: MAGNESIUM SULFATE-D5W PMX 1 GM in DEXTROSE/WATER 1 100ML.BAG IVPB SCH ×4 (10:30→15:21)
[2020-10-28 12:52] LABS: Crenated RBC Present; Poikilocytosis (M) Present; RBC Fragments Present
--- NOTE | 2020-10-28 18:56 | P.PN ---
Subjective Progress Note Date: 10/28/20 Principal diagnosis: Abdominal pain Patient is an 85 yo CM with a hx of COPD, hypertension, dyslipidemia. He was recently admitted from 09/24- 10/15 through with acute ascending cholangitis, E. coli bacteremia, and splenic rupture with emergent splenectomy who presented to the emergency department with complaints of abdominal pain. Liver Ultrasound showed wiht a 1 cm calculous in the ower bile duct consistent with choledocholithiasis. He was started on IV antibiotics. He was seen by cardiology, infectious disease, and surgery. Surgery again recommended transfer to a tertiary care center. Patient seen and examined at bedside. He denies any nausea, vomiting, or abdominal pain. He denies any chest pain or unusual shortness of breath. General: non toxic, no distress, appears at stated age, poor dentition, appears older than stated age Derm: warm, dry Head: atraumatic, normocephalic, symmetric Eyes: EOMI, no lid lag, anicteric sclera Mouth: no lip lesion, mucus membranes moist Cardiovascular: S1S2 reg, no murmur, positive posterior tibial pulse bilateral, Lungs: CTA bilateral, no rhonchi, no rales , no accessory muscle use Abdominal: soft, nontender to palpation, no guarding, no appreciable organomegaly Ext: no gross muscle atrophy, no edema, no contractures Neuro: CN II-XII, no focal neuro deficitis Psych: Alert, oriented, appropriate affect Ascending cholangitis with choledocholithiasis -Continue with Zosyn day #7 -General surgery recommendations, transferred to a tertiary care center for ERCP -ID recommendations -Patient's bilirubin has now normalized. -Pain control -IV fluids Acute exacerbation of diastolic congestive heart failure, ejection fraction 55- 60% -Acute exacerbation resolved -Continue with Lopressor and lisinopril -Monitor fluid status -Cardiology has signed off the patient. Hypokalemia and hypomagnesemia Replaced as indicated and recheck Anemia, multifactorial -No indication for transfusion -Follow CBC Chronic: COPD Hypertension Dyslipidemia BPH Gout Objective - Vital Signs Vital signs: Vital Signs Temp 98.1 F 10/28/20 09:10 Pulse 62 10/28/20 16:00 Resp 16 10/28/20 16:00 BP 156/62 10/28/20 16:00 Pulse Ox 98 10/28/20 16:00 Intake & Output 08/10/28/20 10/28/20 18:59 06:59 18:59 Intake Total 1060 680 Balance 1060 680 Weight 47.9 kg 47.7 kg Intake: Intake, IV Titration 100 200 Amount Magnesium Sulfate-D5w Pmx 100 1 gm In Dextrose/Water 1 100ml.bag @ 100 mls/hr IVPB Q1H [facility] Rx#: [id number] Piperacillin-Tazobactam 3 100 .375 gm In Sodium Chloride 0.9% 100 ml @ 25 mls/hr IVPB Q8H [facility] Rx#: [id number] Piperacillin-Tazobactam 3 100 .375 gm In Sodium Chloride 0.9% 100 ml @ 25 mls/hr IVPB Q8H [facility] Rx#: [id number] Oral 960 480 Other: Voiding Method Toilet Toilet Toilet # Voids 1 1 1 - Labs CBC & Chem 7: 10/28/20 08:17 10/27/20 11:25 Labs: Abnormal Lab Results - Last 24 Hours (Table) 10/28/20 10/28/20 Range/Units 08:17 08:17 RBC 2.71 L (4.30-5.90) m/uL Hgb 8.6 L (13.0-17.5) gm/dL Hct 26.1 L (39.0-53.0) % RDW 19.5 H (11.5-15.5) % Magnesium 1.5 L (1.6-2.3) mg/dL Assessment and Plan Assessment: Delayed charting seen at 0930
--- NOTE | 2020-10-28 19:26 | PN ---
PROGRESS NOTE DATE OF SERVICE: 10/28/2020 REASON FOR FOLLOWUP: 1. Pneumonia. 2. Cholangitis. INTERVAL HISTORY: The patient is afebrile. The patient is currently breathing comfortably on room air. Denies having any chest pain, shortness of breath or cough. No abdominal pain. No diarrhea. PHYSICAL EXAMINATION: Blood pressure 156/60 with a pulse of 52, temperature 98.1. He is 98% on room air. General description is an elderly male lying in bed in no distress. Respiratory system: Unlabored breathing, decreased breath sounds at the base, no wheeze. Heart S1, S2. Regular rate and rhythm. Abdomen soft, no tenderness. Extremities: No edema of the feet. LABS: Hemoglobin 8.6, white count 6.5. DIAGNOSTIC IMPRESSION AND PLAN: Patient with left lower lobe pneumonia, possible aspiration etiology. Also with cholangitis. Patient clinically responded to the Zosyn. Plan is for ERCP this . Continue with supportive care. MMODL / IJN: [id number] /
[2020-10-28] MEDS: METOPROLOL TARTRATE 25 MG TAB PO SCH (20:36)
[2020-10-29] MEDS: HEPARIN SODIUM,PORCINE/PF 5,000 UNIT/0.5 ML SYRINGE SQ SCH ×4 (01:46→20:52)
[2020-10-29] MEDS: PIPERACILLIN-TAZOBACTAM 3.375 GM in SODIUM CHLORIDE 0.9% 100 ML IVPB SCH ×3 (01:46→18:11)
[2020-10-29] MEDS: IPRATROPIUM-ALBUTEROL 3 ML NEB INHALATION SCH ×4 (08:12→20:43)
[2020-10-29] MEDS: BUDESONIDE 1 MG/2 ML NEBU INHALATION SCH ×2 (08:12→20:43)
--- NOTE | 2020-10-29 09:13 | P.PN ---
Subjective Progress Note Date: 10/29/20 Principal diagnosis: Abdominal pain Patient is an 85 yo CM with a hx of COPD, hypertension, dyslipidemia. He was recently admitted from 09/24- 10/15 through with acute ascending cholangitis, E. coli bacteremia, and splenic rupture with emergent splenectomy who presented to the emergency department with complaints of abdominal pain. Liver Ultrasound showed with a 1 cm calculous in the ower bile duct consistent with choledocholithiasis. He was started on IV antibiotics. He was seen by cardiology, infectious disease, and surgery. Surgery again recommended transfer to a tertiary care center. Imaging: Echo: 55-60%, mild artic stenosis, Grade 1 diastolic dysfunction Gallbladder US: Cholelithiasis wiht mild wall thickness, + Ugal[place], equivocal for acute cholecystitis Liver Ultrasound showed with a 1 cm calculous in the ower bile duct consistent with choledocholithiasis Patient seen and examined at bedside. He states that he is feeling okay. He c ontinues to deny any nausea, vomiting, or abdominal pain. He denies any chest pain or unusual shortness of breath. General: non toxic, no distress, appears at stated age, poor dentition, appears older than stated age Derm: warm, dry Head: atraumatic, normocephalic, symmetric Eyes: EOMI, no lid lag, anicteric sclera Mouth: no lip lesion, mucus membranes moist Cardiovascular: S1S2 reg, no murmur, positive posterior tibial pulse bilateral, Lungs: Crackles bilateral bases, no accessory muscle use Abdominal: soft, nontender to palpation, no guarding, no appreciable organomegaly Ext: no gross muscle atrophy, no edema, no contractures Neuro: CN II-XII, no focal neuro deficitis Psych: Alert, oriented, appropriate affect Ascending cholangitis with choledocholithiasis -Continue with Zosyn day #8 -General surgery recommendations, transferred to a tertiary care center for ERCP, gustavo -ID recommendations appreciated -Patient's bilirubin has now normalized. -Pain control -IV fluids Acute exacerbation of diastolic congestive heart failure, ejection fraction 55- 60% -Acute exacerbation resolved -Continue with Lopressor and lisinopril -Monitor fluid status -Cardiology has signed off the patient. Hypokalemia and hypomagnesemia Replaced as indicated and recheck Anemia, multifactorial -No indication for transfusion -Follow CBC Chronic: COPD Hypertension Dyslipidemia BPH Gout Objective - Vital Signs Vital signs: Vital Signs Temp 98.4 F 10/29/20 04:00 Pulse 66 10/29/20 04:00 Resp 18 10/29/20 04:00 BP 154/88 10/29/20 04:00 Pulse Ox 94 L 10/29/20 04:00 Intake & Output 10/28/20 10/29/20 10/29/20 18:59 06:59 18:59 Intake Total 680 916 240 Output Total 0 Balance 680 916 240 Weight 47 kg Intake: Intake, IV Titration 200 200 Amount Magnesium Sulfate-D5w Pmx 100 1 gm In Dextrose/Water 1 100ml.bag @ 100 mls/hr IVPB Q1H [facility] Rx#: [id number] Piperacillin-Tazobactam 3 100 200 .375 gm In Sodium Chloride 0.9% 100 ml @ 25 mls/hr IVPB Q8H [facility] Rx#: [id number] Oral 480 716 240 Output: Stool 0 Other: Voiding Method Toilet Toilet # Voids 1 2 # Bowel Movements 1 - Labs CBC & Chem 7: 10/28/20 08:17 10/27/20 11:25 Labs: Abnormal Lab Results - Last 24 Hours (Table) 10/28/20 Range/Units 08:17 RBC 2.71 L (4.30-5.90) m/uL Hgb 8.6 L (13.0-17.5) gm/dL Hct 26.1 L (39.0-53.0) % RDW 19.5 H (11.5-15.5) %
[2020-10-29] MEDS: predniSONE 10 MG TAB PO SCH (10:04)
[2020-10-29] MEDS: TAMSULOSIN 0.4 MG CAP.ER.24H PO SCH (10:04)
[2020-10-29] MEDS: lisinopriL 20 MG TAB PO SCH (10:04)
[2020-10-29] MEDS: amLODIPine 5 MG TAB PO SCH ×2 (10:04→20:52)
[2020-10-29] MEDS: POTASSIUM CHLORIDE ER 20 MEQ TAB.ER PO SCH (10:04)
[2020-10-29] MEDS: METOPROLOL TARTRATE 25 MG TAB PO SCH ×2 (10:04→20:52)
--- NOTE | 2020-10-29 18:04 | PN ---
PROGRESS NOTE DATE OF SERVICE: 10/29/2020. REASON FOR FOLLOW UP: 1. Pneumonia. 2. Cholangitis. INTERVAL HISTORY: The patient is afebrile. The patient is currently breathing comfortably on room air. Denies any chest pain, shortness of breath. Occasional cough. No abdominal pain. No diarrhea. PHYSICAL EXAMINATION: Blood pressure 159/69 with a pulse of 71, temperature 98.4. He is 95% on room air. General description is an elderly male lying in bed in no distress. Respiratory system: Unlabored breathing, decreased breath sounds in the base, with no wheeze. Heart S1, S2. Regular rate and rhythm. Abdomen: Soft. No tenderness. LABS: Hemoglobin is 8.4, white count 6.5. DIAGNOSTIC IMPRESSION AND PLAN: Patient with left lower lobe pneumonia and cholangitis. Waiting for the ERCP this . Patient is covered with Zosyn to continue and monitor clinical course closely. MMODL / IJN: [id number] /
--- NOTE | 2020-10-29 22:42 | P.PN ---
Subjective Progress Note Date: 10/29/20 CHIEF COMPLAINT: Choledocholithiasis HISTORY OF PRESENT ILLNESS: The patient is a 85-year-old male with complicated history of choledocholithiasis who presented to the hospital with acute ascending cholangitis. He is tolerating diet. No reports of abdominal pain. Family is at bedside inquiring about other options as he is pending transfer to [facility] for ERCP due to choledocholithiasis. ROS: No reports of nausea and vomiting. No fevers or chills. No new chest pain. PHYSICAL EXAM: VITAL SIGNS: Reviewed CONSTITUTIONAL: Well developed and in no acute distress. EYES: Conjuctivae without sclera icterus. Extraocular movements grossly intact. HEAD, EARS, NOSE, THROAT: Moist buccal mucosa. Head is atraumatic, normocephalic. Extremely hard of hearing. Hears best from left ear. NECK: No gross thyroidomegaly. No jugular venous distention. RESPIRATORY: Non-labored respirations and equal bilateral excursions. CARDIOVASCULAR: Palpable 2+ radial pulses. ABDOMEN: No peritonitis. MUSCULOSKELETAL: No gross deformity of the lower extremities noted. No clubbing. No cyanosis. SKIN: Good skin turgor. Well perfused. NEUROLOGIC: Cranial nerves II through XII grossly intact. No focal or lateralizing signs. CLINICAL LABS: Reviewed. WBC normal 7.5. Hemoglobin stable 8.6. Total bilirubin normal 0.3 from 3.0 ASSESSMENT: 1. Choledocholithiasis due to gallstones 2. Anemia. PLAN: 1. Patient still awaiting transfer for choledocholithiasis including ERCP. Discussion with the family member includes that patient will likely need ERCP for pre-existing choledocholithiasis for over 2+ months. 2. Cholecystectomy is high risk for additional choledocholithiasis. Family l ooking for surgical intervention locally. 3. All questions were addressed with patient and family regarding surgical options including inpatient cholecystectomy Objective - Vital Signs Vital signs: Vital Signs Temp 98.4 F 10/29/20 04:00 Pulse 71 10/29/20 11:29 Resp 18 10/29/20 11:29 BP 159/79 10/29/20 11:29 Pulse Ox 95 10/29/20 11:29 Intake & Output 10/29/20 10/29/20 10/30/20 06:59 18:59 06:59 Intake Total 916 600 Output Total 0 0 Balance 916 600 Weight 47 kg Intake: Intake, IV Titration 200 Amount Piperacillin-Tazobactam 3 200 .375 gm In Sodium Chloride 0.9% 100 ml @ 25 mls/hr IVPB Q8H [facility] Rx#: [id number] Oral 716 600 Output: Stool 0 0 Other: Voiding Method Toilet Toilet # Voids 2 2 # Bowel Movements 1 - Labs CBC & Chem 7: 10/28/20 08:17 10/27/20 11:25
[2020-10-30] MEDS: PIPERACILLIN-TAZOBACTAM 3.375 GM in SODIUM CHLORIDE 0.9% 100 ML IVPB SCH ×3 (02:09→17:22)
[2020-10-30] MEDS: IPRATROPIUM-ALBUTEROL 3 ML NEB INHALATION SCH ×4 (08:05→20:52)
[2020-10-30] MEDS: BUDESONIDE 1 MG/2 ML NEBU INHALATION SCH ×2 (08:05→20:52)
[2020-10-30] MEDS: POTASSIUM CHLORIDE ER 20 MEQ TAB.ER PO SCH (09:24)
[2020-10-30] MEDS: METOPROLOL TARTRATE 25 MG TAB PO SCH ×2 (09:24→20:08)
[2020-10-30] MEDS: amLODIPine 5 MG TAB PO SCH ×2 (09:24→20:08)
[2020-10-30] MEDS: predniSONE 10 MG TAB PO SCH (09:24)
[2020-10-30] MEDS: TAMSULOSIN 0.4 MG CAP.ER.24H PO SCH (09:24)
[2020-10-30] MEDS: lisinopriL 20 MG TAB PO SCH (09:24)
[2020-10-30] MEDS: HEPARIN SODIUM,PORCINE/PF 5,000 UNIT/0.5 ML SYRINGE SQ SCH ×2 (09:24→17:23)
--- NOTE | 2020-10-30 15:20 | P.PN ---
Subjective Progress Note Date: 10/30/20 Principal diagnosis: Abdominal pain Patient is an 85 yo CM with a hx of COPD, hypertension, dyslipidemia. He was recently admitted from 09/24- 10/15 through with acute ascending cholangitis, E. coli bacteremia, and splenic rupture with emergent splenectomy who presented to the emergency department with complaints of abdominal pain. Liver Ultrasound showed with a 1 cm calculous in the ower bile duct consistent with choledocholithiasis. He was started on IV antibiotics. He was seen by cardiology, infectious disease, and surgery. Surgery again recommended transfer to a tertiary care center. After waiting multiple days no beds were available at [facility]. His elevated liver enzymes had resolved suggesting that his choledocholithiasis may have positive. Plan is for possible surgical cholecystectomy on 10/31/20. Patient may still need ERCP. Imaging: Echo: 55-60%, mild artic stenosis, Grade 1 diastolic dysfunction Gallbladder US: Cholelithiasis wiht mild wall thickness, + Ugalde, equivocal for acute cholecystitis Liver Ultrasound showed with a 1 cm calculous in the ower bile duct consistent with choledocholithiasis Patient seen and examined at bedside. He states that he is feeling good. He wants something done about his gallbladder. No chest pain, no shortness of breath. General: non toxic, no distress, appears at stated age, poor dentition, appears older than stated age Derm: warm, dry Head: atraumatic, normocephalic, symmetric Eyes: EOMI, no lid lag, anicteric sclera Mouth: no lip lesion, mucus membranes moist Cardiovascular: S1S2 reg, no murmur, positive posterior tibial pulse bilateral, Lungs: Crackles bilateral bases, no accessory muscle use Abdominal: soft, nontender to palpation, no guarding, no appreciable organomegaly Ext: no gross muscle atrophy, no edema, no contractures Neuro: CN II-XII, no focal neuro deficitis Psych: Alert, oriented, appropriate affect Ascending cholangitis with choledocholithiasis -Continue with Zosyn day #11 -General surgery recommendations: possible gustavo tomorrow here as unable to transfer patient, will need ERCP in the next 1-2 months to look for causes of obstruction. -ID recommendations appreciated -Patient's bilirubin has now normalized. -Pain control -IV fluids Acute exacerbation of diastolic congestive heart failure, ejection fraction 55- 60% -Acute exacerbation resolved -Continue with Lopressor and lisinopril -Monitor fluid status -Cardiology has signed off the patient. Hypokalemia and hypomagnesemia Replaced as indicated and recheck Anemia, multifactorial -No indication for transfusion -Follow CBC Chronic: COPD Hypertension Dyslipidemia BPH Gout Objective - Vital Signs Vital signs: Vital Signs Temp 98.6 F 10/30/20 08:00 Pulse 72 10/30/20 08:00 Resp 22 10/30/20 08:00 BP 170/61 10/30/20 08:00 Pulse Ox 97 10/30/20 08:00 Intake & Output 10/29/20 10/30/20 10/30/20 18:59 06:59 18:59 Intake Total 600 580 120 Output Total 0 0 Balance 600 580 120 Intake: Intake, IV Titration 100 Amount Piperacillin-Tazobactam 3 100 .375 gm In Sodium Chloride 0.9% 100 ml @ 25 mls/hr IVPB Q8H [facility] Rx#: [id number] Oral 600 480 120 Output: Stool 0 0 Other: Voiding Method Toilet Toilet # Voids 2 1 - Labs CBC & Chem 7: 10/28/20 08:17 10/27/20 11:25
--- NOTE | 2020-10-30 21:24 | P.PN ---
Subjective Progress Note Date: 10/30/20 CHIEF COMPLAINT: Choledocholithiasis HISTORY OF PRESENT ILLNESS: The patient is a 85-year-old male with complicated history of choledocholithiasis who presented to the hospital with acute ascending cholangitis. He reports no further abdominal pain. No jaundice. He is pending transfer to [facility] for ERCP. ROS: No reports of nausea and vomiting. No new chest pain. PHYSICAL EXAM: VITAL SIGNS: Reviewed CONSTITUTIONAL: Well developed and in no acute distress. EYES: Conjuctivae without sclera icterus. Extraocular movements grossly intact. HEAD, EARS, NOSE, THROAT: Moist buccal mucosa. Head is atraumatic, normocephalic. Extremely hard of hearing. Hears best from left ear. NECK: No gross thyroidomegaly. No jugular venous distention. RESPIRATORY: Non-labored respirations and equal bilateral excursions. CARDIOVASCULAR: Palpable 2+ radial pulses. ABDOMEN: No peritonitis. Dressing intact. MUSCULOSKELETAL: No gross deformity of the lower extremities noted. No clubbi ng. No cyanosis. SKIN: Good skin turgor. Well perfused. NEUROLOGIC: Cranial nerves II through XII grossly intact. No focal or lateralizing signs. CLINICAL LABS: Reviewed. WBC normal 6.5. Hgb stable 8.6 ASSESSMENT: 1. Choledocholithiasis due to gallstones 2. Anemia. PLAN: 1. Patient has symptomatic cholelithiasis with choledocholithiasis. He is more than 30 days out from his index operation. 2. Will proceed with cholecystectomy. He is elevated risk for peritoneal adhesions with recent laparotomy. Objective - Vital Signs Vital signs: Vital Signs Temp 98 F 10/30/20 14:00 Pulse 66 10/30/20 16:34 Resp 20 10/30/20 14:00 BP 168/60 10/30/20 14:00 Pulse Ox 98 10/30/20 14:00 Intake & Output 10/30/20 10/30/20 10/31/20 06:59 18:59 06:59 Intake Total 580 240 Output Total 0 Balance 580 240 Intake: Intake, IV Titration 100 Amount Piperacillin-Tazobactam 3 100 .375 gm In Sodium Chloride 0.9% 100 ml @ 25 mls/hr IVPB Q8H [facility] Rx#: [id number] Oral 480 240 Output: Stool 0 Other: Voiding Method Toilet # Voids 1 2 - Labs CBC & Chem 7: 10/28/20 08:17 10/27/20 11:25
--- NOTE | 2020-10-30 22:53 | PN ---
PROGRESS NOTE DATE OF SERVICE: 10/30/2020. REASON FOR FOLLOWUP: Pneumonia and cholangitis. INTERVAL HISTORY: Patient is afebrile. The patient is breathing comfortably, hemodynamically stable. No chest pain, shortness of breath or cough. No abdominal pain or diarrhea. PHYSICAL EXAMINATION: Blood pressure 152/67 with pulse 74, temperature 97.4, he is 97% on room air. General description is an elderly male lying in bed in no distress. Respiratory system: Unlabored breathing, decreased breath sounds in the base, with no wheeze. Heart S1, S2. Regular rate and rhythm. Abdomen: Soft, no tenderness. LABS: No new labs have been obtained today. DIAGNOSTIC IMPRESSION/PLAN: Patient with left lower lobe pneumonia and cholangitis, waiting for the ERCP. The patient is covered with Zosyn to continue and monitor clinical course closely. MMODL / IJN: [id number] /
[2020-10-31] MEDS: PIPERACILLIN-TAZOBACTAM 3.375 GM in SODIUM CHLORIDE 0.9% 100 ML IVPB SCH ×3 (01:06→17:31)
[2020-10-31] MEDS: HEPARIN SODIUM,PORCINE/PF 5,000 UNIT/0.5 ML SYRINGE SQ SCH ×3 (01:06→17:32)
[2020-10-31 06:03] LABS: Anisocytosis Slight; Basophils % (A) 0 %; Eosinophils # (A) 0.1 k/uL (0-0.7); Eosinophils % (A) 1 %; HCT 25.9 % (39.0-53.0); HGB 8.3 gm/dL (13.0-17.5); Hypochromasia Moderate; Lymphocytes # (A) 2.2 k/uL (1.0-4.8); Lymphocytes % (A) 33 %; MCH 31.2 pg (25.0-35.0); MCHC 32.1 g/dL (31.0-37.0); MCV 97.4 fL (80.0-100.0); Macrocytosis Slight; Mean Platelet Volume 10.2; Monocytes # (A) 0.3 k/uL (0-1.0); Monocytes % (A) 5 %; Neutrophils # (A) 3.9 k/uL (1.3-7.7); Neutrophils % (A) 59 %; Platelet Count 277 k/uL (150-450); RBC 2.66 m/uL (4.30-5.90); WBC 6.7 k/uL (3.8-10.6)
[2020-10-31 06:46] LABS: ALT 29 U/L (4-49); AST 25 U/L (17-59); African American GFR (CKD) >90 (>60 ml/min/1.73 sqM); Albumin 2.1 g/dL (3.5-5.0); Alkaline Phosphatase 148 U/L (38-126); Anion Gap 3 mmol/L; Blood Urea Nitrogen 14 mg/dL (9-20); Calcium 8.1 mg/dL (8.4-10.2); Carbon Dioxide 20 mmol/L (22-30); Chloride 114 mmol/L (98-107); Glucose 81 mg/dL (74-99); Magnesium 1.8 mg/dL (1.6-2.3); Non-African American GFR(CKD) 80 (>60 ml/min/1.73 sqM); Potassium 4.3 mmol/L (3.5-5.1); Sodium 137 mmol/L (137-145); Total Bilirubin 0.2 mg/dL (0.2-1.3); Total Protein 4.2 g/dL (6.3-8.2)
[2020-10-31] MEDS ORDERED: INDOCYANINE GREEN 25 MG VIAL IV STA (07:36)
--- NOTE | 2020-10-31 07:39 | P.HPADDEND ---
H&P Addendum H&P Addendum Date: 10/31/20 LFTs near normal. White count normal. Robotic cholecystectomy described. Risk of choledocholithiasis reviewed. Need for ERCP postop due to pre-existing choledocholithiasis reviewed with family and patient.
[2020-10-31] MEDS: IPRATROPIUM-ALBUTEROL 3 ML NEB INHALATION SCH ×4 (08:47→19:39)
[2020-10-31] MEDS: BUDESONIDE 1 MG/2 ML NEBU INHALATION SCH ×2 (08:47→19:39)
[2020-10-31] MEDS: METOPROLOL TARTRATE 25 MG TAB PO SCH ×2 (08:57→21:22)
[2020-10-31] MEDS ORDERED: IV FLUID CONTINUATION 1,000 ML IV ONE (11:30)
[2020-10-31] MEDS ORDERED: ONDANSETRON 4 MG/2 ML VIAL IVP ONE (11:42)
[2020-10-31] MEDS ORDERED: LIDOCAINE 1% (10MG/ML) FOR IV START INTRADERMA PRN (11:45)
[2020-10-31] MEDS ORDERED: HYDROmorphone 0.5 MG/0.5 ML SYRINGE IVP PRN (11:45)
[2020-10-31] MEDS ORDERED: MIDAZOLAM 2 MG/2 ML VIAL IV PRN (11:45)
[2020-10-31] MEDS ORDERED: LABETALOL 5 MG/ML VIAL MDV ONE (12:46)
[2020-10-31] MEDS ORDERED: PROPOFOL 10 MG/ML 20 ML VIAL IV ONE (12:46)
[2020-10-31] MEDS ORDERED: SUCCINYLCHOLINE CHLORIDE 100 MG/5 ML SYR IV ONE (12:46)
[2020-10-31] MEDS ORDERED: NEOSTIGMINE 1 MG/ML 10 ML VIAL ONE (12:46)
[2020-10-31] MEDS ORDERED: fentaNYL (PF) 50 MCG/ML 2 ML AMP ONE (12:46)
[2020-10-31] MEDS ORDERED: LIDOCAINE 1% INJ 10MG/ML (20 ML MDV) ONE (12:46)
[2020-10-31] MEDS ORDERED: GLYCOPYRROLATE 0.2 MG/ML 2 ML VIAL ONE (12:46)
[2020-10-31] MEDS ORDERED: ePHEDrine SULFATE/0.9% NACL/PF 50 MG/5 ML SYRINGE IV ONE (12:46)
[2020-10-31] MEDS ORDERED: ROCURONIUM 10 MG/ML (5 ML VIAL) IV ONE (12:46)
[2020-10-31] MEDS ORDERED: LIDOCAINE 1%-EPI 1:100,000 20 ML VIAL SQ ONE ×2 (12:52→13:12)
--- NOTE | 2020-10-31 14:45 | P.OP ---
Date of Procedure: 10/31/20 Description of Procedure: SURGEON: ADAM SIEGEL MD PREOPERATIVE DIAGNOSES: 1. Symptomatic gallstones with choledocholithiasis 2. History of ascending cholangitis with sepsis 3. Status post recent exploratory laparotomy with splenectomy 4. Hypertensive heart disease 5. Gout 6. Hyperlipidemia 7. Peripheral vascular occlussive disease 8. Tobacco abuse disorder 9. Chronic obstructive pulmonary disease with acute exacerbation 10. 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 Chronic anemia POSTOPERATIVE DIAGNOSES: 1. Symptomatic gallstones with choledocholithiasis 2. History of ascending cholangitis with sepsis 3. Status post recent exploratory laparotomy with splenectomy 4. Hypertensive heart disease 5. Gout 6. Hyperlipidemia 7. Peripheral vascular occlussive disease 8. Tobacco abuse disorder 9. Chronic obstructive pulmonary disease with acute exacerbation 10. 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 Chronic anemia 12. Intra-abdominal peritoneal adhesions 13. Intra-abdominal ascites OPERATION: 1. Robotic-assisted da Jasbir Xi laparoscopic lysis of adhesions over 30 minutes 2. Robotic-assisted da Jasbir Xi laparoscopic cholecystectomy, multiport with FIREFLY ESTIMATED BLOOD LOSS: 10 mL. SPECIMENS REMOVED: Gallbladder. COMPLICATIONS: None. OPERATIVE FINDINGS: 1. Intra-abdominal adhesions epigastric and left upper quadrant requiring extensive lysis of adhesions over 30 minutes 2. Laparoscopic trocar entry along the right upper quadrant due to recent splenectomy along the left upper quadrant 3. Mild to moderate intra-abdominal ascites 4. Dilated common bile duct consistent with history of choledocholithiasis 5. Lack of indocyanine green and gallbladder consistent with cholecystitis 6. Palpable over 1 cm gallstones INDICATIONS: The patient is a 85 year-old male who presents with recurrent ascending cholangitis due to choledocholithiasis and symptomatic gallstones. Patient was pending transfer to [facility] for almost 2 weeks for an ERCP. Additionally, patient is status post exploratory laparotomy for traumatic splenic rupture and subsequent splenectomy 1 month ago. Due to his recurrent ascending cholangitis with symptomatic gallstones, surgical intervention with cholecystectomy was described. Robotic assisted laparoscopic approach was described. Additionally, postoperative need for ERCP was thoroughly discussed with the patient and family for his pre-existing choledocholithiasis. Benefits and risks of the procedure including but not limited to bleeding, infection, injury to the biliary tree was reviewed. Informed consent was obtained. DESCRIPTION OF PROCEDURE: Patient was brought to the operating room, placed in supine position. After general induction, the abdomen had been prepped and draped in standard sterile fashion. The robotic da Jasbir XI system was primed. After a timeout protocol was performed, the patient had been prepped and draped in standard sterile fashion. The patient was injected with indocyanine green. A 5 mm 0 degrees laparoscopic trocar entry was performed along the right upper quadrant. The abdomen insufflated to 15 mmHg pressure which was tolerated well. Diagnostic laparoscopy demonstrated no injury to bowel viscera or mesentery. Mild to moderate intra-abdominal ascites was identified. The liver surface was unremarkable. Small bowel to abdominal wall adhesions was confirmed along the midline including the left upper quadrant. Next, two 8 mm robotic ports were placed along the right upper abdomen. The camera 8-mm port was maintained along the lower epigastrium. Another 8 mm port was placed along the left lower abdominal wall after exchanging the 5 mm port. Please note that the ports were placed at least 10 to 15 cm away from the target anatomy of the gallbladder. The robot was docked along the left lateral abdomen. The patient was repositioned in reverse Trendelenburg position at 21 with the right side up at 7. Using a grasper for arm 3, a grasper for arm 4, including hook cautery for arm 1, the robotic system was docked and primed as described. Instruments were interchanged by the salon assistant including hook cautery, Bovie cautery and clip appliers. Vessel sealer was used for lysis of adhesions. I had sat at the console. Vessel sealer was used to address moderate adhesions about the gallbladder including liver for over 30 minutes. Careful manipulation of the gallbladder was performed to the decrease risk for additional choledocholithiasis. The gallbladder was reflected towards the dome of the liver. Moderate edema was found along the cystic triangle including infundibulum. Initial dissection was performed on the gallbladder infundibulum using indocyanine green to illuminate the cystic duct and common bile duct. Due to moderate distention of the infundibulum, dome down technique was performed r emoving the gallbladder from the hepatic fossa starting from the fundus towards the infundibulum. Using a sponge, the liver was reflected towards the diaphragm and starting at the gallbladder fundus, hook cautery was used to find the avascular plane between the liver and the gallbladder. As the gallbladder was dissected from the hepatic fossa, hemostasis was checked using vessel sealer along the posterior gallbladder. Next, indocyanine green was used to confirm the common bile duct as well as cystic duct. The entire gallbladder was without contrast consistent with acute cholecystitis. The common bile duct was dilated consistent with history of choledocholithiasis. The infundibulum was retracted laterally to expose the cystic duct away from the common bile duct. The cystic duct was dissected free from its surrounding tissue. FIREFLY was used to identify the cystic structures. A critical view of safety was obtained. Large PLASTIC clips were used throughout the entire case. Using a clip guest services coordinator, a clip was placed at the junction of the infundibulum and cystic duct. The cystic duct was divided using vessel sealer. Next, the cystic artery was divided using vessel sealer. Electro-Bovie cautery and vessel sealer was used to remove the gallbladder without decompression. Hemostasis was checked and found to be adequate. The robot was undocked. I re-scrubbed into the case. A 10 mm Endo Catch bag was used to remove the gallbladder in total via the left upper quadrant incision after widening the incision. The specimen was removed from the abdominal cavity. All pneumoperitoneum instruments were evacuated from the abdominal cavity. The incisions were cleansed using dilute hydrogen peroxide. The incisions were reapproximated using 4-0 Monocryl in an interrupted subcuticular fashion. Please note along the trocar sites, local anesthetic was placed as a field block prior to insertion of all instruments. Liquid glue was applied to the skin. At the end of the procedure needle, sponge, and instrument count had been verified correct by the surgical forceps fabricator. The patient was transferred to postanesthesia care unit in stable condition. Intraoperative films were shared with the patient's family who were pleased with the level of care. Extensive discussion was performed with the family including postoperative need for ERCP due to his history of choledocholithiasis. Additionally strict low-fat diet was dressed. I personally contacted the patient's admitting provider for postsurgical plans for potential outpatient ERCP at transferring facility due to extended length of stay for awaiting hospital bed. Family including admitting provider greeted with course of plan.
[2020-10-31] MEDS: TAMSULOSIN 0.4 MG CAP.ER.24H PO SCH (15:33)
--- NOTE | 2020-10-31 15:33 | P.PN ---
Subjective Progress Note Date: 10/31/20 (delayed charting seen at 1045) Principal diagnosis: Abdominal pain Patient is an 85 yo CM with a hx of COPD, hypertension, dyslipidemia. He was recently admitted from 09/24- 10/15 through with acute ascending cholangitis, E. coli bacteremia, and splenic rupture with emergent splenectomy who presented to the emergency department with complaints of abdominal pain. Liver Ultrasound showed with a 1 cm calculous in the ower bile duct consistent with choledocholithiasis. He was started on IV antibiotics. He was seen by cardiology, infectious disease, and surgery. Surgery again recommended transfer to a tertiary care center. After waiting multiple days no beds were available at [facility]. His elevated liver enzymes had resolved suggesting that his choledocholithiasis may have resolved. He underwent robotic lap gustavo on . He will need outpatient ERCP. Imaging: Echo: 55-60%, mild artic stenosis, Grade 1 diastolic dysfunction Gallbladder US: Cholelithiasis wiht mild wall thickness, + Ugalde, equivocal for acute cholecystitis Liver Ultrasound showed with a 1 cm calculous in the ower bile duct consistent with choledocholithiasis Patient seen and examined at bedside. He is hungry, no chest pain, no shortness of breath, no nausea. General: non toxic, no distress, appears at stated age, poor dentition, appears older than stated age Derm: warm, dry Head: atraumatic, normocephalic, symmetric Eyes: EOMI, no lid lag, anicteric sclera Mouth: no lip lesion, mucus membranes moist Cardiovascular: S1S2 reg, no murmur, positive posterior tibial pulse bilateral, Lungs: Crackles bilateral bases, no accessory muscle use Abdominal: soft, nontender to palpation, no guarding, no appreciable organomegaly Ext: no gross muscle atrophy, no edema, no contractures Neuro: CN II-XII, no focal neuro deficitis Psych: Alert, oriented, appropriate affect Ascending cholangitis with choledocholithiasis -Continue with Zosyn day #12 -General surgery recommendations: gustavo today will need ERCP (Dr. Christopher Song at [facility]) -ID recommendations appreciated -Patient's bilirubin has now normalized. -Pain control -IV fluids Acute exacerbation of diastolic congestive heart failure, ejection fraction 55- 60% -Acute exacerbation resolved -Continue with Lopressor and lisinopril -Monitor fluid status -Cardiology has signed off the patient. Hypokalemia and hypomagnesemia Replaced as indicated and recheck Anemia, multifactorial -No indication for transfusion -Follow CBC Chronic: COPD Hypertension Dyslipidemia BPH Gout Anticipate D/C home in AM. Patient has source control likely will not need abx on discharge. Objective - Vital Signs Vital signs: Vital Signs Temp 96.8 F L 10/31/20 14:07 Pulse 62 10/31/20 14:45 Resp 18 10/31/20 14:45 BP 156/67 10/31/20 14:45 Pulse Ox 96 10/31/20 14:45 Intake & Output 10/30/20 10/31/20 10/31/20 18:59 06:59 18:59 Intake Total 240 600 Output Total 10 Balance 240 590 Weight 46.7 kg Intake: IV 600 Oral 240 Output: Stool 0 Estimated Blood Loss 10 Other: Voiding Method Toilet # Voids 2 1 - Labs CBC & Chem 7: 10/31/20 05:41 10/31/20 05:41 Labs: Abnormal Lab Results - Last 24 Hours (Table) 10/31/20 10/31/20 Range/Units 05:41 05:41 RBC 2.66 L (4.30-5.90) m/uL Hgb 8.3 L (13.0-17.5) gm/dL Hct 25.9 L (39.0-53.0) % RDW 20.0 H (11.5-15.5) % Chloride 114 H (98-107) mmol/L Carbon Dioxide 20 L (22-30) mmol/L Calcium 8.1 L (8.4-10.2) mg/dL Alkaline Phosphatase 148 H (38-126) U/L Total Protein 4.2 L (6.3-8.2) g/dL Albumin 2.1 L (3.5-5.0) g/dL
[2020-10-31] MEDS: amLODIPine 5 MG TAB PO SCH ×2 (15:58→21:22)
[2020-10-31 16:05] LABS: ALT 38 U/L (4-49); AST 40 U/L (17-59); African American GFR (CKD) >90 (>60 ml/min/1.73 sqM); Albumin 2.2 g/dL (3.5-5.0); Alkaline Phosphatase 152 U/L (38-126); Anion Gap 3 mmol/L; Blood Urea Nitrogen 13 mg/dL (9-20); Calcium 7.9 mg/dL (8.4-10.2); Carbon Dioxide 21 mmol/L (22-30); Chloride 113 mmol/L (98-107); Glucose 95 mg/dL (74-99); Non-African American GFR(CKD) 79 (>60 ml/min/1.73 sqM); Potassium 4.2 mmol/L (3.5-5.1); Sodium 137 mmol/L (137-145); Total Bilirubin 0.2 mg/dL (0.2-1.3); Total Protein 4.4 g/dL (6.3-8.2)
[2020-10-31] MEDS: LACTATED RINGERS 1,000 ML IV SCH (17:28)
[2020-10-31] MEDS: lisinopriL 20 MG TAB PO SCH (17:30)
[2020-10-31] MEDS: POTASSIUM CHLORIDE ER 20 MEQ TAB.ER PO SCH (17:30)
[2020-10-31] MEDS: SIMETHICONE 40 MG/0.6 ML DROPS 2,000 MG/30 ML BOTTLE PO SCH ×3 (17:31→21:22)
[2020-10-31] MEDS: predniSONE 10 MG TAB PO SCH (17:31)
--- NOTE | 2020-10-31 17:54 | P.PN ---
Progress Note - Text Progress Note Date: 10/31/20 Repeat comprehensive metabolic panel confirms total bilirubin normal. LFTs also within normal limits. Patient surgically stable for discharge with outpatient ERCP at tertiary care institution
--- NOTE | 2020-10-31 23:51 | P.PN ---
Progress Note - Text Progress Note Date: 10/31/20 REASON FOR FOLLOWUP: Pneumonia and cholangitis. INTERVAL HISTORY: Patient remains to be afebrile. The patient is breathing comfortably, hemodynamically stable. No chest pain, shortness of breath or cough. Abdominal pain is currently controlled, the patient is status post robotic assisted cholecystectomy and lysis of adhesions PHYSICAL EXAMINATION: Blood pressure 150/60 with pulse 70, temperature 97.4, he is 97% on room air. General description is an elderly male lying in bed in no distress. Respiratory system: Unlabored breathing, decreased breath sounds in the base, with no wheeze. Heart S1, S2. Regular rate and rhythm. Abdomen: Soft, no tenderness. LABS: Reviewed. DIAGNOSTIC IMPRESSION/PLAN: Patient with left lower lobe pneumonia and cholangitis with choledocholithiasis in this patient with status post cholecystectomy, patient is covered with Zosyn perioperatively to continue and monitor clinical course closely
[2020-11-01] MEDS: HEPARIN SODIUM,PORCINE/PF 5,000 UNIT/0.5 ML SYRINGE SQ SCH ×3 (00:06→17:09)
[2020-11-01] MEDS: PIPERACILLIN-TAZOBACTAM 3.375 GM in SODIUM CHLORIDE 0.9% 100 ML IVPB SCH ×2 (02:19→09:34)
[2020-11-01] MEDS: IPRATROPIUM-ALBUTEROL 3 ML NEB INHALATION SCH ×3 (08:40→15:09)
[2020-11-01] MEDS: BUDESONIDE 1 MG/2 ML NEBU INHALATION SCH (08:40)
[2020-11-01] MEDS: TAMSULOSIN 0.4 MG CAP.ER.24H PO SCH (09:34)
[2020-11-01] MEDS: POTASSIUM CHLORIDE ER 20 MEQ TAB.ER PO SCH (09:34)
[2020-11-01] MEDS: METOPROLOL TARTRATE 25 MG TAB PO SCH (09:34)
[2020-11-01] MEDS: amLODIPine 5 MG TAB PO SCH (09:35)
[2020-11-01] MEDS: lisinopriL 20 MG TAB PO SCH (09:35)
[2020-11-01] MEDS: predniSONE 10 MG TAB PO SCH (09:35)
[2020-11-01] MEDS: SIMETHICONE 40 MG/0.6 ML DROPS 2,000 MG/30 ML BOTTLE PO SCH ×2 (09:35→15:22)
--- NOTE | 2020-11-01 09:35 | P.PN ---
Subjective Progress Note Date: 11/01/20 Principal diagnosis: Choledocholithiasis Patient doing well today. Underwent laparoscopic cholecystectomy yesterday. Minimal discomfort. He would like to go home. Labs look good. Objective - Vital Signs Vital signs: Vital Signs Temp 98.1 F 11/01/20 03:52 Pulse 68 11/01/20 03:52 Resp 16 11/01/20 03:52 BP 162/90 11/01/20 03:52 Pulse Ox 97 11/01/20 08:40 Intake & Output 10/31/20 11/01/20 11/01/20 18:59 06:59 18:59 Intake Total 840 114 Output Total 10 550 Balance 830 -550 114 Intake: IV 600 Oral 240 114 Output: Urine 550 Stool 0 Estimated Blood Loss 10 Other: Voiding Method Toilet Toilet # Voids 2 2 - Exam Abdomen: Soft, nondistended, incisions clean and dry, minimal tenderness - Labs CBC & Chem 7: 10/31/20 05:41 10/31/20 15:09 Labs: Abnormal Lab Results - Last 24 Hours (Table) 10/31/20 Range/Units 15:09 Chloride 113 H (98-107) mmol/L Carbon Dioxide 21 L (22-30) mmol/L Calcium 7.9 L (8.4-10.2) mg/dL Alkaline Phosphatase 152 H (38-126) U/L Total Protein 4.4 L (6.3-8.2) g/dL Albumin 2.2 L (3.5-5.0) g/dL Assessment and Plan (1) Choledocholithiasis Narrative/Plan: Patient doing well at this time. May discharge from our point of view. Follow- up as outpatient. Current Visit: No Status: Acute Code(s): K80.50 - CALCULUS OF BILE DUCT W/O CHOLANGITIS OR CHOLECYST W/O OBST SNOMED Code(s): 811991100
[2020-11-01 11:54] LABS: Anisocytosis Moderate; Basophils % (A) 0 %; Eosinophils % (A) 1 %; HCT 25.5 % (39.0-53.0); HGB 8.3 gm/dL (13.0-17.5); Hypochromasia Moderate; Lymphocytes # (A) 1.8 k/uL (1.0-4.8); Lymphocytes % (A) 26 %; MCH 31.5 pg (25.0-35.0); MCHC 32.4 g/dL (31.0-37.0); MCV 97.3 fL (80.0-100.0); Macrocytosis Slight; Mean Platelet Volume 9.9; Monocytes # (A) 0.4 k/uL (0-1.0); Monocytes % (A) 5 %; Neutrophils # (A) 4.6 k/uL (1.3-7.7); Neutrophils % (A) 66 %; Platelet Count 291 k/uL (150-450); RBC 2.63 m/uL (4.30-5.90); RDW 20.1 % (11.5-15.5); WBC 6.9 k/uL (3.8-10.6)
[2020-11-01 12:07] LABS: Calcium 7.8 mg/dL (8.4-10.2); Potassium 4.1 mmol/L (3.5-5.1); Total Bilirubin 0.2 mg/dL (0.2-1.3)
[2020-11-01] MEDS: LACTATED RINGERS 1,000 ML IV SCH (14:06)
[2020-11-01 14:09] VITALS: BP 169/61; PULSE 67; RESP 17; TEMP 97.4
--- NOTE | 2020-11-01 14:35 | P.DS ---
Providers Date of admission: 10/19/20 22:09 Expected date of discharge: 11/01/20 Attending physician: Elizabeth Palacios MD Consults: 10/19/20 21:45 Consult Physician Routine Consulting Provider: Loi Palmer Consult Reason/Comments: Pneumonia Do you want consulting provider notified?: Yes 10/20/20 11:07 Consult Physician Stat Consulting Provider: Faith Gimenez Consult Reason/Comments: Possible gallstones. Do you want consulting provider notified?: Yes Primary care physician: Leona Millan Hospital Course: Discharge Diagnosis: Ascending cholangitis with choledocholithiasis Acute exacerbation of diastolic congestive heart failure, ejection fraction 55- 60% Hypokalemia and hypomagnesemia Anemia, multifactorial COPD Hypertension Dyslipidemia BPH Gout Hospital Course: Patient is an 85 yo CM with a hx of COPD, hypertension, dyslipidemia. He was recently admitted from 09/24- 10/15 through with acute ascending cholangitis, E. coli bacteremia, and splenic rupture with emergent splenectomy who presented to the emergency department with complaints of abdominal pain. Liver Ultrasound showed with a 1 cm calculous in the lower bile duct consistent with choledocholithiasis. He was started on IV Zosyn. He was seen by cardiology, infectious disease, and surgery. Surgery again recommended transfer to a tertiary care center. After waiting multiple days no beds were available at [facility]. His elevated liver enzymes had resolved suggesting that his choledocholithiasis may have resolved. He underwent robotic lap gustavo on 10/31. He tolerated the procedure well and was eating and drinking. He will need outpatient ERCP. He should follow with Christopher Song MD for the ERCP. He did have some elevated blood pressure and norvasc was added to his metoprolol and lisinopril. Imaging: Liver ultrasound: 1 cm calculus in the lower bile duct, atrophic gallbladder with Cholelithiasis Echocardiogram: Ejection fraction 55-60%, grade 1 diastolic dysfunction, mild valvular disease Repeat gallbladder ultrasound: Cholelithiasis with mild wall thickening, common bile duct mildly dilated hypokinetic area not seen Follow-up instructions: Dr. Robert on 11/14, Dr. Felder in 2-3 days, Low fat diet. Dr. Song as soon as available, Augmentin for 2 additional days Patient seen and examined at bedside. Doing well. Tolerating diet. No abdominal pain. No nausea, vomiting, or diarrhea. Vital signs reviewed and stable. General: non toxic, no distress, appears at stated age Derm: warm, dry Head: atraumatic, normocephalic, symmetric Eyes: EOMI, no lid lag, anicteric sclera, poor dentition Mouth: no lip lesion, mucus membranes moist Cardiovascular: S1S2 reg, no murmur, positive posterior tibial pulse bilateral, Lungs: CTA bilateral, no rhonchi, no rales , no accessory muscle use Abdominal: soft, nontender to palpation, no guarding, no appreciable organomegaly Ext: no gross muscle atrophy, no edema, no contractures Neuro: CN II-XI grossly intact, no focal neuro deficits Psych: Alert, oriented, appropriate affect A total of 45 minutes of time were spent preparing this complex discharge summary . Patient Condition at Discharge: Stable Plan - Discharge Summary Discharge Rx Participant: No New Discharge Prescriptions: New amLODIPine [Norvasc] 5 mg PO BID #60 tab Continue allopurinoL [Zyloprim] 100 mg PO DAILY lisinopriL 40 mg PO DAILY Metoprolol Tartrate [Lopressor] 12.5 mg PO BID #60 tab Famotidine [Pepcid] 20 mg PO DAILY #30 tab Budesonide [Pulmicort] 1 mg INHALATION RT-BID #2 inhaler Albuterol Inhaler [Ventolin Hfa Inhaler] 2 puff INHALATION QID PRN #2 inhaler PRN Reason: Shortness Of Breath Tamsulosin [Flomax] 0.4 mg PO -BRKT #30 cap.er.24h predniSONE 10 mg PO DAILY #3 tab Nicotine 21Mg/24Hr Patch [Habitrol] 1 patch TRANSDERM DAILY PRN PRN Reason: Nicotine Cravings Changed Amoxic-Pot Clav 875-125Mg [Augmentin 875-125] 1 tab PO Q12HR #4 tab Discontinued Atorvastatin Calcium [Lipitor] 80 mg PO DAILY Discharge Medication List allopurinoL [Zyloprim] 100 mg PO DAILY 05/05/15 [History] lisinopriL 40 mg PO DAILY 05/05/15 [History] Albuterol Inhaler [Ventolin Hfa Inhaler] 2 puff INHALATION QID PRN #2 inhaler 10/15/20 [Rx] Budesonide [Pulmicort] 1 mg INHALATION RT-BID #2 inhaler 10/15/20 [Rx] Famotidine [Pepcid] 20 mg PO DAILY #30 tab 10/15/20 [Rx] Metoprolol Tartrate [Lopressor] 12.5 mg PO BID #60 tab 10/15/20 [Rx] Tamsulosin [Flomax] 0.4 mg PO PC-BRKFST #30 cap.er.24h 10/15/20 [Rx] predniSONE 10 mg PO DAILY #3 tab 10/15/20 [Rx] Nicotine 21Mg/24Hr Patch [Habitrol] 1 patch TRANSDERM DAILY PRN 10/19/20 [History] Amoxic-Pot Clav 875-125Mg [Augmentin 875-125] 1 tab PO Q12HR #4 tab 11/01/20 [Rx] amLODIPine [Norvasc] 5 mg PO BID #60 tab 11/01/20 [Rx] Follow up Appointment(s)/Referral(s): Faith Gimenez MD [STAFF PHYSICIAN] - 11/13/20 (Please call Tuesday through Tuesday between 8 AM and 4 PM to confirm time) [facility], [NON-STAFF] - Leona Millan MD [Primary Care Provider] - 1-2 days Patient Instructions/Handouts: *[facility] - Laparoscopic Cholecystectomy Discharge Instructions, *[facility] - Managing Your Pain After Surgery Without Opioids, Low Fat Diet (ED), ERCP (Endoscopic Retrograde Cholangiopancreatography) (DC) Activity/Diet/Wound Care/Special Instructions: Activity: No lifting over 10 pounds in 2 weeks until November 14. May shower. No bath tub soaks for two weeks until November 14. Diet: Low Fat Diet as tolerated. Special Instructions: Recommend low-fat diet until ERCP completed Use Tylenol, simethicone and ibuprofen or Aleve scheduled for the next 24-48 hours for best pain relief. Use ice along incisions for today to prevent swelling. [facility] Physician for ERCP: Christopher Song MD [phone] (call for appointment, online referral was also completed) Location [facility] [address] [address] . Discharge Disposition: HOME WITH HOME HEALTH SERVICES
--- NOTE | 2020-11-01 15:44 | PN ---
PROGRESS NOTE DATE OF SERVICE: 11/01/2020 REASON FOR FOLLOWUP: Cholecystitis, cholangitis and pneumonia. INTERVAL HISTORY: The patient is afebrile. The patient is feeling better, breathing comfortably. Denies having any chest pain or shortness of breath. Occasional cough. No abdominal pain or diarrhea. PHYSICAL EXAMINATION: Blood pressure is 169/61 with a pulse of 67, temperature 97.5. He is 96% on room air. GENERAL DESCRIPTION: General description is an elderly male lying in bed in no distress. RESPIRATORY SYSTEM: Unlabored breathing. Decreased breath sounds at the bases. No wheeze. HEART: S1, S2. Regular rate and rhythm. ABDOMEN: Soft. No tenderness. LABS: Hemoglobin is 8.3, white count 6.9, BUN of 13, creatinine 0.9. DIAGNOSTIC IMPRESSION AND PLAN: Patient with acute cholecystitis and choledocholithiasis along with concern for pneumonia. Patient is covered with Zosyn with overall improvement; to continue while inpatient and continue with supportive care. MMODL / IJN: [id number] /
== END 2020-11-01 16:21 | disposition home health service (06) | DRG 417 ==
LOC: EC 18:57 → 3SCARD 22:09
PROVIDERS: ADMIT Internal Medicine; ATTEND Internal Medicine
PROC: 0FT44ZZ Resection of Gallbladder, Percutaneous Endoscopic Approach (ICD-10-PCS; 2020-10-31)
PROC: 0DN64ZZ Release Stomach, Percutaneous Endoscopic Approach (ICD-10-PCS; 2020-10-31)
PROC: 0DN84ZZ Release Small Intestine, Percutaneous Endoscopic Approach (ICD-10-PCS; 2020-10-31)
PROC: 8E0W4CZ Robotic Assisted Procedure of Trunk Region, Percutaneous Endoscopic Approach (ICD-10-PCS; 2020-10-31)
PROC: BF53200 Other Imaging of Gallbladder and Bile Ducts using Fluorescing Agent, Indocyanine Green Dye, Intraoperative (ICD-10-PCS; 2020-10-31)
PROC: 0FT44ZZ Resection of Gallbladder, Percutaneous Endoscopic Approach (ICD-10-PCS; principal; 2020-10-31 10:50)
DX: K80.63 Calculus of gallbladder and bile duct with acute cholecystitis with obstruction (principal); J69.0 Pneumonitis due to inhalation of food and vomit; G93.41 Metabolic encephalopathy; I50.33 Acute on chronic diastolic (congestive) heart failure; J44.1 Chronic obstructive pulmonary disease with (acute) exacerbation; K82.1 Hydrops of gallbladder; N13.8 Other obstructive and reflux uropathy; J44.0 Chronic obstructive pulmonary disease with (acute) lower respiratory infection; R18.8 Other ascites; K66.0 Peritoneal adhesions (postprocedural) (postinfection); M10.9 Gout, unspecified; N40.1 Benign prostatic hyperplasia with lower urinary tract symptoms; Z79.899 Other long term (current) drug therapy; Z75.1 Person awaiting admission to adequate facility elsewhere; Z90.81 Acquired absence of spleen; K29.70 Gastritis, unspecified, without bleeding; E78.5 Hyperlipidemia, unspecified; E83.42 Hypomagnesemia; E87.6 Hypokalemia; F17.200 Nicotine dependence, unspecified, uncomplicated; I11.0 Hypertensive heart disease with heart failure
CPT/HCPCS: 36415; 71046; 76705; 80048; 80053; 80202; 81001; 83605; 83735; 83880; 84100; 84484; 85025; 85610; 85730; 87040; 87635; 88304; 93005; 93306; 94640; 94760; 96365; 96375; 99283; 99291

== ENCOUNTER → 2020-11-20 | Outpatient (CLI) | payer MEDICARE ==
--- NOTE | 2020-11-20 16:04 | US ---
EXAMINATION TYPE: US venous doppler duplex LE LT DATE OF EXAM: 11/20/2020 3:26 PM COMPARISON: NONE CLINICAL HISTORY: 85-year-old male I82.409 Acute embolism and thrombosis of unspecified, swelling and pain SIDE PERFORMED: Left TECHNIQUE: The lower extremity deep venous system is examined utilizing real time linear array sonog tierra with graded compression, doppler sonography and color-flow sonography. FINDINGS: VESSELS IMAGED: Common Femoral Vein Deep Femoral Vein Greater Saphenous Vein * Femoral Vein Popliteal Vein Small Saphenous Vein * Proximal Calf Veins (* superficial vessels) Left Leg: Negative for DVT IMPRESSION: No evidence for DVT within the left lower extremity imaged from the groin to the upper calf.
== END | disposition home or self-care (01) ==
LOC: RADUSWWP 15:24
PROVIDERS: ATTEND Surgery Plastic and Reconstructive Surgery
DX: M79.605 Pain in left leg (principal); R22.42 Localized swelling, mass and lump, left lower limb; I82.409 Acute embolism and thrombosis of unspecified deep veins of unspecified lower extremity

== ENCOUNTER → 2021-07-01 | Outpatient (CLI) | payer MEDICARE ==
--- NOTE | 2021-07-01 17:05 | MR ---
EXAMINATION TYPE: MR lumbar spine wo con DATE OF EXAM: 07/01/2021 COMPARISON: CT abdomen pelvis 10/05/2020 HISTORY: Low back pain that radiates into left and right buttocks for 1 year TECHNIQUE: Multiplanar, multisequence images of the lumbar spine were acquired without IV contrast. L1-L2: Some loss of disc height signal is noted. No significant spinal stenosis or foraminal encroach ment. L2-L3: Right posterior paracentral disc herniation causes anterolateral mass effect on the thecal sac . Circumferential extension endplate disc complex results in foraminal encroachment left greater than right possibly accentuated by spinal curvature. L3-L4: Posterior broad-based disc bulge causes anterior mass effect on the thecal sac. Facet arthropa thy with hypertrophy ligamentum flavum is noted. Circumferential extension of endplate disc complex e ncroaches somewhat on the inferior margins of the foramina. L4-L5: There is moderate to severe spinal stenosis present, posterior disc herniation is broad-based causes anterior mass effect on the thecal sac, there is associated circumferential extension of endpl ate disc complex causing foraminal encroachment right greater than left, facet arthropathy with hyper trophy of the ligamentum flavum encroaches on the lateral recesses L5-S1: Posterior extension endplate disc complex causes some anterior mass effect on the thecal sac, encroachment on the lateral recesses, there is facet arthropathy with hypertrophy ligamentum flavum. Circumferential extension endplate disc complex encroaches upon the bilateral foramina. Lumbar segments are intact. No paraspinal masses are identified. Conus medullaris has a normal appe arance. Slight kyphosis centered at L2-[address], there is associated loss of disc height and signal greatest at L2-3 and L5-S1, there is multilevel spondylosis with endplate discogenic marrow si gnal change. 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 There is a spinal curvature. There is previous a greg bifemoral bypass graft again noted. IMPRESSION: Degenerative disc disease, spinal stenosis greatest at L4-5, multilevel foraminal encroachment and fa cet arthropathy. Postop changes. There is a mild spinal curvature.
== END | disposition home or self-care (01) ==
LOC: RADMRIMAIN 15:26
PROVIDERS: ATTEND Physical Medicine & Rehabilitation
DX: M51.16 Intervertebral disc disorders with radiculopathy, lumbar region (principal); M48.061 Spinal stenosis, lumbar region without neurogenic claudication; M47.26 Other spondylosis with radiculopathy, lumbar region; M43.8X6 Other specified deforming dorsopathies, lumbar region
CPT/HCPCS: 72148

== ENCOUNTER → 2022-03-09 | Outpatient (CLI) | payer MEDICARE ==
--- NOTE | 2022-03-09 12:10 | CT ---
EXAMINATION TYPE: CT abdomen pelvis w con CT DLP: 757 mGycm, Automated exposure control for dose reduction was used. DATE OF EXAM: 03/09/2022 11:48 AM COMPARISON: CT abdomen pelvis most recent from 10/05/2020. CLINICAL INDICATION:Male, 87 years old with history of C61 Prostate cancer; prostate ca TECHNIQUE: Standard CT of the abdomen and pelvis following the administration of 70 cc of Isovue 30 0 IV contrast material. Coronal and sagittal reformats were performed. FINDINGS: LOWER CHEST: Mild centrilobular emphysematous changes. Aortic valvular calcifications. Coronary arter ial calcifications. ABDOMEN LIVER: Unremarkable GALLBLADDER AND BILE DUCTS: Gallbladder is surgically absent with mild intrahepatic and extra hepatic biliary dilatation likely physiologic and a postcholecystectomy change. No evidence of choledocholit hiasis. PANCREAS: Unremarkable. SPLEEN: Postsurgical changes from splenectomy with residual splenic tissue within the splenectomy bed . ADRENAL GLANDS: Unremarkable. KIDNEYS AND URETERS: No evidence of hydronephrosis or renal calculus. The kidneys enhance symmetrical ly. Similar nonspecific bilateral perinephric fashioning. PELVIS BLADDER: Unremarkable REPRODUCTIVE: Mildly enlarged heterogenous prostate gland with prominent bilateral symmetric seminal vesicles. There is loss of fat plane with the rectum. ABDOMEN & PELVIS STOMACH AND BOWEL: Stomach and duodenum are unremarkable no focal wall thickening. The appendix is wi thin normal limits. No evidence of bowel obstruction. PERITONEUM: No evidence of pneumoperitoneum or free fluid. Calcified lesion in the left lower abdomen is unchanged and may represent a calcified lymph node or dropped gallstone. VASCULATURE: Postsurgical changes from vascular bypass graft involving the infrarenal abdominal aorta and into the femoral arteries. The graft appears patent. Moderate to severe vascular calcifications aorta and its branches. 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 Diminutive appearan ce of the celiac axis. Severe stenosis at the origin of the bilateral renal artery secondary to calci fied plaque. MUSCULOSKELETAL: No acute osseous abnormalities. No aggressive osseous lesions. No definitive blastic or sclerotic lesions. Mild retrolisthesis of L5 on S1. Multilevel degenerative disc disease with dis c space narrowing, endplate sclerosis, vacuum disc disease, and anterior osteophytosis. LYMPH NODES: Similar nonenlarged paratracheal lymph nodes measuring less than 1 cm short axis. SOFT TISSUE/ABDOMINAL WALL: Small fat filled right periumbilical hernia. Small fat filled umbilical h ernia. IMPRESSION: 1. No definitive evidence for metastatic disease. 2. Postsurgical changes from patent vascular bypass graft with extensive vascular disease as describe d above. 3. Mild COPD changes.
--- NOTE | 2022-03-09 15:07 | NM ---
EXAMINATION TYPE: NM bone scan whole body DATE OF EXAM: 03/09/2022 COMPARISON: NONE HISTORY: Prostate cancer Delayed whole-body scanning was performed following the injection of 22.8 mCi Tc 99m MDP. Images acq uired 3 hours post injection. FINDINGS: No abnormal uptake is identified within the appendicular or axial skeleton to suggest metastatic dise ase. There is increased uptake within the bilateral shoulder, sternoclavicular, and sacroiliac joints con sistent with degenerative changes. No other photopenic areas or areas of increased activity are ident ified. Physiologic radiotracer activity is demonstrated in the kidneys and bladder. IMPRESSION: Nothing to suggest metastatic disease.
== END | disposition home or self-care (01) ==
LOC: RADNMMAIN 09:53
PROVIDERS: ATTEND Urology
DX: C61 Malignant neoplasm of prostate (principal); J44.9 Chronic obstructive pulmonary disease, unspecified; Z95.1 Presence of aortocoronary bypass graft
CPT/HCPCS: 82565; 84520; 74177; 36415; 78306; A9503; Q9967

== ENCOUNTER 2024-10-03 07:45 | Day surgery (SDC) | payer MEDICARE ==
[2024-10-02 08:57] VITALS: BMI 20.5
[~2024-10-03 07:45] MED LIST changes: -LACTATED RINGERS 1,000 ML IV SCH; +TETRACAINE 0.5% OPHTH (PF) DROPS 4 ML BTL OP PRN
[2024-10-03 08:47] VITALS: RESP 16; TEMP 97.6
[2024-10-03] MEDS: PHENYLEPHRINE 2.5% OPHTH DRP 2ML OP PRN (08:55)
[2024-10-03] MEDS: CYCLOPENTOLATE 1% OPHTH SOLN 2 ML BTL OP PRN (08:58)
[2024-10-03] MEDS: LACTATED RINGERS 1,000 ML IV SCH (09:06)
[2024-10-03] MEDS: IV FLUID CONTINUATION 1,000 ML IV ONE (09:07)
[2024-10-03] MEDS ORDERED: MIDAZOLAM 2 MG/2 ML VIAL ONE (09:36)
[2024-10-03] MEDS: EPINEPHrine (PF) 0.3 ML in BALANCED SALT IRRIG SOLN COMB2 500 ML IRRIGATION ONE (09:48)
[2024-10-03] MEDS: HYALURONATE SODIUM INTRAOCULAR 1 EACH SYRINGE (12MG/ML) INTRAOCULA ONE (09:49)
[2024-10-03] MEDS: TIMOLOL 0.5% OPHTH DROPS 5 ML BTL OP PRN (09:49)
[2024-10-03] MEDS: MOXIFLOXACIN HCL 0.5% DROPS 3 ML BTL OP PRN (09:49)
[2024-10-03] MEDS: BALANCED SALT IRRIG SOLN COMB2 15 ML IRRIG.SOLN INTRAOCULA ONE (09:50)
[2024-10-03] MEDS: LIDOCAINE 1% (PF) 10MG/ML VIAL MISCELLANE ONE (09:50)
--- NOTE | 2024-10-03 10:12 | P.OP ---
Date of Procedure: 10/03/24 Preoperative Diagnosis: NS Postoperative Diagnosis: same Procedure(s) Performed: PIOL< OD Implants: DCB00 21.00 Anesthesia: MAC Surgeon: Aureliano Fulton Pathology: none sent Condition: stable Disposition: same day Indications for Procedure: blurry vision Operative Findings: no complications
[2024-10-03 10:20] VITALS: PULSE 58
[2024-10-03 10:29] VITALS: BP 163/61
--- NOTE | 2024-10-03 21:38 | OP ---
OPERATIVE REPORT DATE OF SERVICE : 10/03/2024 PREOPERATIVE DIAGNOSIS: Nuclear sclerosis, right eye. POSTOPERATIVE DIAGNOSIS: Nuclear sclerosis, right eye. OPERATION: Phacoemulsification of cataract and intraocular lens implant of the right eye. ESTIMATED BLOOD LOSS: Zero. SPECIMEN TAKEN: None. NARRATIVE: After obtaining the appropriate consent, the patient was brought to the operating room where the patient was placed under cardiac monitoring and prepped and draped in the usual sterile manner. At the 11 o'clock position, a 15-degree super sharp blade was used to create a paracentesis followed by instillation of 1% Xylocaine MPF 50:50 mix with BSS into the anterior chamber. This was followed by Amvisc viscoelastic to stabilize the anterior chamber. At the 9 o'clock position a self-sealing corneal flap incision was created using 2.8 mm valdez keratome. A cystotome was used to initiate a continuous tear capsulorrhexis which was completed with the Utrata forceps. A Binkhorst cannula was used to hydrodissect the lens nucleus followed by hydrodelineation. Phacoemulsification of the lens was performed utilizing phacochop in 30.56 Seconds at 19.4% power. The remaining cortical material was removed using the irrigation aspiration mode followed by additional 1% Xylocaine MPF into the anterior chamber followed by viscoelastic to stabilize the capsular bag. A Dion and Dion, model DCB00, 21.0 diopters, posterior chamber lens was placed into the capsular bag without difficulty. The remaining viscoelastic material was removed from the anterior chamber with the irrigation/aspiration. Balanced salt solution was used to normalize the intraocular pressure. The incision was checked for watertight integrity. The patient then received 2 drops of 0.5% timolol followed by 2 drops Vigamox, was lightly patched and shielded in the usual manner. There were no complications from the procedure. The patient tolerated the procedure well and was returned to recovery in good condition. MMODL / IJN: [id number] /
== END 2024-10-03 10:45 | disposition home or self-care (01) ==
LOC: OR 07:45
PROVIDERS: ATTEND Ophthalmology
DX: H25.11 Age-related nuclear cataract, right eye (principal); H00.023 Hordeolum internum right eye, unspecified eyelid; H00.026 Hordeolum internum left eye, unspecified eyelid; H18.413 Arcus senilis, bilateral; H52.4 Presbyopia; H52.03 Hypermetropia, bilateral; J44.9 Chronic obstructive pulmonary disease, unspecified; I73.9 Peripheral vascular disease, unspecified; E78.5 Hyperlipidemia, unspecified; I10 Essential (primary) hypertension; F17.210 Nicotine dependence, cigarettes, uncomplicated; N40.0 Benign prostatic hyperplasia without lower urinary tract symptoms; Z96.1 Presence of intraocular lens; Z79.02 Long term (current) use of antithrombotics/antiplatelets; Z79.899 Other long term (current) drug therapy
CPT/HCPCS: 66984; V2632; J2250; J2003; J0166